=== PATIENT | male | born 1995 | race Caucasian/White ===

== ENCOUNTER 2022-09-26 16:32 | Emergency (ER) | payer OTHER, SELFPAY ==
[2022-09-26 17:41] VITALS: BP 151/86; PULSE 81; RESP 14; TEMP 36.6; O2SAT 151; BMI 42.9
[2022-09-26 19:22] VITALS: BP 146/77; PULSE 66; RESP 16; O2SAT 98
--- NOTE | 2022-09-26 19:40 | CRLHL7_ITS ---
For Patients: As a result of the Century Cures Act, medical imaging exams and procedure reports are released immediately into your electronic medical record. You may view this report before your referring provider. If you have questions, please contact your health care provider. CLINICAL HISTORY: Right upper quadrant pain FINDINGS: Pancreas poorly seen. Proximal abdominal aorta non aneurysmal. Gallbladder without stones wall thickening. Gallbladder wall measures 2 millimeters. Common bile duct measures 3 millimeters. Liver mildly enlarged measuring 17.2 cm. Right kidney measures 11.9 cm suboptimally seen but unremarkable. IMPRESSION: 1. Mildly enlarged liver. Study is otherwise unremarkable. Dictated by Tania Stern MD @ 09/26/2022 9:50:59 PM (Electronically Signed)
[2022-09-26] MEDS: ONDANSETRON 2 MG/ML inj 4 MG IVP (20:15)
[2022-09-26] MEDS: 0.9 % SODIUM CHLORIDE 1000 ml 1,000 ML 500 ML IV (20:15)
[2022-09-26] MEDS: OMEPRAZOLE 20 MG CAPSULE DR PO (20:15)
--- NOTE | 2022-09-26 20:20 | ED.ABDPAIN ---
HPI - Abdominal Pain General Chief Complaint: Abdominal Pain Stated Complaint: Sharp Abdominal Pain under RibCage Time Seen by Provider: 09/26/22 19:30 Source: patient Mode of arrival: ambulatory Limitations: no limitations History of Present Illness HPI narrative: 27-year-old obese male presents the emergency department with a 2 and half week history of abdominal pain. Initially started as a pressure, uncomfortable feeling and was intermittent. Has been increasing in frequency lately. For the last 1 week it has been more constant and is mainly a right epigastric and upper abdominal feeling of dullness and achiness. It worsened significantly this morning after he tried to eat a half omelet with his family out to breakfast after hindu. He admits that he drinks too much alcohol. 3-4 days per week he drinks about half of a case of beer. He denies a prior history of pancreatitis. He does report frequent gastric reflux but has never had an endoscopy. He has tried sporadic reflux meds in the past but nothing in the last few weeks. He does not endorse any blood in his stools, black tarry stools or over use of NSAIDs. Denies a prior history of pancreatitis. He is worried this could be related to alcohol due to the fact that he knows it is too much alcohol. He has not tried any home medications to help with his symptoms. Past medical history notable for obesity and prior depression though he is not currently on medications. As for his allergies he is allergic to minocycline which was treated with for acne as a teen. Surgically he has had 2 knee arthroscopies. Family history is negative for stomach ulcers, pancreatitis or GI cancers and is also negative for gallbladder disease. He has never had a workup from a similar disease. Socially, he is a nonsmoker but does binge drink frequently. ROS is notable for the GI symptoms as above, otherwise denies times 12 systems. Related Data Previous Rx's Medication Instructions Recorded omeprazole 20 mg capsule,delayed 20 mg PO DAILY #30 caps 09/26/22 release Allergies Allergy/AdvReac Type Severity Reaction Status Date / Time minocycline Allergy Hives Verified 09/26/22 17:40 [facility] Social History Smoking Status: Never smoker Do you use any of these nicotine containing products: None Second hand tobacco smoke exposure: No How often do you have a drink containing alcohol: 2-3 times a week How often do you have six or more drinks on one occasion: Weekly AUDIT-C Alcohol total score: 6 Non-prescribed substance use: denies use service: No Exam Const: Vital Signs, click to edit/add: Vital Signs - 24 hr 09/26/22 17:41 09/26/22 19:22 Temperature 97.9 F Pulse Rate [Right Pulse Oximeter] 81 66 Respiratory Rate 14 16 Blood Pressure [Ri ght Upper Arm] 151/86 H 146/77 H Pulse Oximetry 151 H 98 Oxygen Delivery Me thod Room Air Room Air Documenting provider has reviewed patient's vital signs: yes Common normals: no apparent distress General appearance: cooperative, comfortable and well kempt HENMT: Common normals: normocephalic Head and scalp: normocephalic Mouth: oral and palatal mucosa normal Throat: posterior oropharynx normal Eye: Common normals: conjunctivae normal and no scleral icterus Conjunctiva: conjunctiva(e) normal Neck & C-Spine: Common normals: full ROM and no lymphadenopathy Chest: Common normals: inspection of chest normal Resp: Common normals: normal respiratory effort, no use of accessory muscles and clear to auscultation bilaterally Auscultation: clear to auscultation bilaterally Cardio: Common normals: regular rate, regular rhythm, S1 normal heart sound, S2 normal heart sound, no murmurs and peripheral pulses 2+ throughout Rate: regular rate Rhythm: regular rhythm Heart sounds: S1 normal and S2 normal Peripheral pulses: pulses 2+ throughout GI: Other: Abdomen obese but soft. Bowel sounds are normoactive. He is tender to the right upper quadrant more so than the epigastric region but have some mild epigastric tenderness also. The liver does not seem enlarged. There are no obvious masses or hernias. : Common normals: no CVA tenderness Bladder/kidney exam: no CVA tenderness Back & Pelvis: Common normals: no CVA tenderness Extremity: Common normals: normal to inspection, normal capillary refill and no pedal edema Neuro: Speech: speech normal Gait (neuro): normal gait Motor exam: no tremor noted and no movement abnormalities noted Psych: Common normals: thought process normal, cooperative and affect normal Appearance: well kempt Thought process: normal thought process Skin: Common normals: no rashes or lesions noted General skin exam: no rashes or lesions noted Course Vital Signs Vital signs: Initial Vital Signs Temperature 97.9 F 09/26/22 17:41 Temperature Source Temporal Artery Scan 09/26/22 17:41 Pulse Rate 81 09/26/22 17:41 Respiratory Rate 14 09/26/22 17:41 Blood Pressure 151/86 H 09/26/22 17:41 Blood Pressure Mean 107 09/26/22 17:41 Blood Pressure Position Sitting 09/26/22 17:41 Pulse Oximetry 151 H 09/26/22 17:41 Oxygen Delivery Method 09/26/22 17:41 Vital Signs Temperature 97.9 F 09/26/22 17:41 Pulse Rate 81 09/26/22 17:41 Respiratory Rate 14 09/26/22 17:41 Blood Pressure 151/86 H 09/26/22 17:41 Pulse Oximetry 151 H 09/26/22 17:41 Oxygen Delivery Method 09/26/22 17:41 Temperature 97.9 F 09/26/22 17:41 Pulse Rate 66 09/26/22 19:22 Respiratory Rate 16 09/26/22 19:22 Blood Pressure 146/77 H 09/26/22 19:22 Pulse Oximetry 98 09/26/22 19:22 Oxygen Delivery Method 09/26/22 19:22 MDM - Abdominal Pain MDM Narrative Medical decision making narrative: Differential diagnosis including cirrhosis, alcoholic gastritis, stomach ulcer, pancreatitis, gallbladder disease, cholecystitis verses gallstones. Colitis and other intra-abdominal issues on the differential diagnosis as well as is cardiac disease. Recommended a trial of omeprazole and Zofran, lab workup and abdominal ultrasound. Declines pain medicine for now and I agree. Await lab results. Ultrasound report showing mild liver enlargement, otherwise normal, confirmed with formal report. Gallbladder wall specifically not thickened, ducts not thickened. No signs of sludge or stones. Labs reviewed, appropriate context. Patient continuing to have some mild pain not relieved by the omeprazole. No nausea, no vomiting. Is tolerating the fluids well. We discussed all the findings and reviewed the plan of care. He will abstain from alcohol, start omeprazole and follow up with primary care in 2 weeks to rest depression, anxiety and GI symptoms. Recommend HIDA scan and endoscopy if not improving on omeprazole as expected. Lab Data Attestation: I reviewed the patient's lab results. Lab results narrative: Mild elevation of transaminases consistent with known heavy alcohol use but bilirubin reassuring. Normal CRP, no leukocytosis is reassuring as well Labs: Lab Results 09/26/22 09/26/22 Range/Units 20:00 20:00 WBC 7.93 (4.50-11.00) K/uL RBC 4.83 (4.30-5.90) m/uL Hgb 15.7 (13.5-17.5) gm/dL Hct 46.1 (37.0-53.0) % MCV 95 (80-100) fL MCH 33 (26-34) pg MCHC 34 (32-36) gm/dL RDW Coeff of Kaylen 12.4 (11.5-15.5) % Plt Count 212 (140-440) K/uL Neut % (Auto) 54.1 (42.0-72.0) % Lymph % (Auto) 34.3 (20-44) % [place] % (Auto) 7.6 (0.0-11.0) % Eos % (Auto) 3.3 (0.0-7.0) % Baso % (Auto) 0.4 (0.0-3.0) % Neut # (Auto) 4.30 (1.7-7.0) K/uL Lymph # (Auto) 2.72 (0.90-2.90) K/uL [place] # (Auto) 0.60 (0.00-0.90) K/UL Eos # (Auto) 0.26 (0.00-0.50) K/uL Baso # (Auto) 0.03 (0.00-0.30) K/uL Abs Immat Gran (auto) 0.02 (0.00-0.30) K/uL Imm/Tot Granulo (auto) 0.3 % Sodium 138 (135-149) mmol/L Potassium 4.1 (3.6-5.1) mmol/L Chloride 101 (96-114) mmol/L Carbon Dioxide 29 (20-32) mmol/L BUN 13 (5-24) mg/dL Creatinine 1.1 (0.5-1.5) mg/dL Estimated Creat Clear 118.32 Estimated GFR 95 ml/min Glucose 85 (60-115) mg/dL Calcium 9.7 (8.4-10.6) mg/dL Total Bilirubin 0.8 (0.1-1.5) mg/dL AST 45 H (12-35) U/L ALT 74 H (4-50) U/L Alkaline Phosphatase 120 (40-150) U/L C-Reactive Protein < 0.5 L (0.5-1.0) mg/dL Total Protein 8.0 (6.0-8.3) g/dL Albumin 5.1 H (3.3-5.0) g/dL Lipase 42 (23-300) U/L Discharge Plan Discharge Clinical Impression: Gastritis Patient Disposition: Home, Self-Care Condition: Stable Instructions: Gastritis (DC) Additional Instructions: Your stomach seems inflamed from a combination of acid reflux and drinking too much alcohol. You will need to start a stomach acid medicine called omeprazole once daily for the next couple of weeks and follow-up with a primary care doctor to recheck your symptoms. It is important that you stop drinking alcohol to allow your stomach to heal. I would recommend that you talk to a primary care doctor about your anxiety and depression as well as I suspect your self medicating with alcohol. Your symptoms should improve markedly within the next couple of weeks. If they do not, additional workup to look at the gallbladder more closely including a HIDA scan or a CT scan should be considered. Your liver does show some mild changes associated with heavy alcohol use but is still at a point where this can be corrected with better behavior. The primary care doctor will talk to about additional workup including possibly an endoscopy if the stomach acid medicine does not improve your symptoms. There were no signs of pancreatitis or other complication on labs today. Slowly advance her diet, initially avoiding carbonated beverages and all alcohol and very acidic foods for the next week or 2. Start was soft, bland foods and plenty of fluids. Add in a wider array of foods as her symptoms improve but as stated, avoiding alcohol and carbonated beverages for a few weeks. Activity Level: Activity as Tolerated Discharge Diet: Regular Prescriptions: New omeprazole 20 mg capsule,delayed release(DR/EC) 20 mg PO DAILY Qty: 30 2RF Follow Up/Referrals: Provider,Not a Local [Primary Care Provider] - Stand Alone Forms: [email or web address] Info Instructions
[2022-09-26 20:22] LABS: Basophils Absolute Auto 0.03 K/uL (0.00-0.30); Basophils Percent Auto 0.4 % (0.0-3.0); Eosinophils Absolute Auto 0.26 K/uL (0.00-0.50); Eosinophils Percent Auto 3.3 % (0.0-7.0); Hematocrit 46.1 % (37.0-53.0); Hemoglobin* 15.7 gm/dL (13.5-17.5); Immature Granulocytes Abs Auto 0.02 K/uL (0.00-0.30); Immature Granulocytes Pct Auto 0.3 %; Lymphocytes Absolute Auto 2.72 K/uL (0.90-2.90); Lymphocytes Percent Auto 34.3 % (20-44); Mean Corpuscular HGB Conc 34 gm/dL (32-36); Mean Corpuscular Hemoglobin 33 pg (26-34); Mean Corpuscular Volume 95 fL (80-100); Monocytes Percent Auto 7.6 % (0.0-11.0); Neutrophils Percent Auto 54.1 % (42.0-72.0); Platelet Count* 212 K/uL (140-440); RDW Coefficient of Variation % 12.4 % (11.5-15.5); Red Blood Count 4.83 m/uL (4.30-5.90); White Blood Count* 7.93 K/uL (4.50-11.00)
--- OUTSIDE RECORDS SUMMARY | 2022-09-26 20:22 | XMS_ITS | Clinical Summary ---
:1995 Author Organization [place] Address [address] [place] [address] Care Team Providers Name Role Phone Annalisa Silva NP Primary Care Provider [phone] Annalisa Silva BIOMETRICIAN Unavailable Allergies Active Allergy Reactions Severity Noted Date Comments Minocycline Itching, Rash Medium 07/06/2012 Medications Medication Sig Dispensed Refills Start Date End Date Status Multiple Take 1 tablet by 0 Act jorge Vitamins-Minerals (RALF mouth daily MULTI MEN PO) [place]-3 Fatty Acids Take 1 capsule by 0 Active (FISH OIL OMEGA-3 PO) mouth daily hydrOXYzine (ATARAX) 25 Take 1-2 tablets 60 tablet 1 9 Active MG tabletIndications: (25-50 mg) by Generalized anxiety mouth every 4 disorder hours as needed for anxiety traZODone (DESYREL) 50 One or two at 60 tablet 1 04/15/2019 Active MG tabletIndications: night as needed Generalized anxiety disorder busPIRone (BUSPAR) 10 Take 1 tablet (10 60 tablet 1 05/28/2021 Active MG tabletIndications: mg) by mouth 2 Generalized anxiety times daily disorder vortioxetine Take 1 tablet (10 30 tablet 1 05/28/2021 Active (TRINTELLIX) 10 MG mg) by mouth tabletIndications: daily Generalized anxiety disorder azithromycin Two tablets first 6 tablet 0 02/11/2022 Active (ZITHROMAX) 250 MG day, then one tabletIndications: tablet daily for Sinusitis, unspecified four days. chronicity, unspecified location Active Problems Problem Noted Date Palpitations 12/25/2020 Overview: Added automatically from request for ilan singery [id number] Morbid obesity 12/25/2020 SVT (supraventricular tachycardia) 12/25/2020 Overview: Added automatically from request for ilan arciniega [id number] Suicidal ideations 04/11/2019 Nausea & vomiting 03/23/2018 Obesity 05/30/2013 Anxiety disorder Resolved Problems Problem Noted Date Resolved Date Pneumonia 04/11/2016 11/14/2017 Postconcussion syndrome 01/31/2008 08/26/2015 Influenza with respiratory manifestation other than 12/26/19 07 01/31/2008 pneumonia Overview: Problem list name updated by automated p rocess. Provider to review Pneumonia, organism unspecified(486) 12/26/200612/2007 Immunizations Name Administration Dates Next Due DTAP (<7y) 05/15/2001, 05/25/1997, 1996, 1996, 1996 DTP-Hib 1996, 1996, 1996 HEPA 05/02/2013 Hep B, Peds or Adolescent 1996, 1996, 1996 HepA-ped 2 Dose 05/02/2013 HepB 1996, 1996, 1996 Hib (PRP-T) 05/25/1997, 1996, 1996, 1996 Influenza (IIV3) PF 09/05/2007 Influenza Vaccine 50-64 or 18-64 w/egg 11/15/2018 allergy (Flublok) MMR 05/15/2001, 05/25/1997 Meningococcal (Menactra??) 06/06/2013, 06/12/2007 Meningococcal (Menveo??) 06/06/2013 OPV, trivalent, live 1996, 1996, 1996 Poliovirus, inactivated (IPV) 05/15/2001, 1996, 1995, 1996 TD (ADULT, 7+) 05/01/2018 TDAP Vaccine (Boostrix) 06/12/2007 TRIHIBIT (DTAP/HIB, <7y) 05/25/1997 Varicella Pt Report Hx of 08/14/1998 Varicella/Chicken Pox Family History Medical History Relation Comments Family History Negative Father Diabetes Maternal Grandmother Family History Negative Mother Diabetes Other Other Cancer Paternal Grandmother Relation Status Comments Brother Alive Father Alive Maternal Grandmother Mother Alive Other Paternal Grandmother Social History Tobacco Use Types Packs/Day Years Used Date Smoking Tobacco: Never Smokeless Tobacco: Former Chew Qu it: 07/31/2020 Tobacco Cessation: Counseling Given: No Alcohol Use Standard Drinks/Week Comments Yes 0 (1 standard drink = 0.6 oz pure alcoho l) occasional Alcohol Habits Answer Date Recorded How often do you have a drink containing alcohol? Not asked How many drinks containing alcohol do you have on a typical 3 or 4 11/15/2018 day when you are drinking? How often do you have six or more drinks on one occasion? We ekly 11/15/2018 Sex Assigned at Date Recorded Male 07/12/2020 3:49 AM CDT Last Filed Vital Signs Vital Sign Reading Time Taken Comments Blood Pressure 152/96 06/18/2022 12:05 PM CDT Pulse 76 06/18/2022 12:05 PM CDT Temperature 36.7 ??C (98 ??F) 06/18/2022 12:05 PM CDT Respiratory Rate 18 06/18/2022 12:05 PM CDT Oxygen Saturation 98% 06/18/2022 12:05 PM CDT Inhaled Oxygen Concentration - - Weight 146.4 kg (322 lb 11.2 oz) 05/28/2021 5:46 PM CDT Height 188 cm (6' 2) 05/28/2021 5:46 PM CDT Body Mass Index 41.43 05/28/2021 5:46 PM CDT Plan of Treatment Upcoming Encounters Date Type Specialty Care Team Description 11/04/2022 Office Visit Internal Medicine Marcy Ricketts APRN COMPOUND SPECIALIST [address] [place], [place] [address] (Wo rk) Health Maintenance Due Date Last Done Comments ANNUAL REVIEW OF HM ORDERS 1996 HPV IMMUNIZATION (1 - Male 01/10/2007 2-dose series) HEPATITIS C SCREENING 01/10/2014 COVID-19 Vaccine (3 - 08/21/2021 06/26/2021, 05/29/2021 Booster for Moderna series) PHQ-2 (once per calendar 10/31/2021 05/28/2021, 05/28/2021, year) 12/29/2020, Additional history exists YEARLY PREVENTIVE VISIT 05/28/2022 05/28/2021, 11/15/2018, 11/14/2017, Additional history exists INFLUENZA VACCINE (#1) 2022 07/30/2020, 07/25/2019, 11/15/2018, Additional history exists ADVANCE CARE PLANNING 05/28/2026 05/28/2021 DTAP/TDAP/TD IMMUNIZATION 05/01/2028 05/01/2018, 06/12/2007 , (5 - Td or Tdap) 05/15/2001, Additional history exists HEPATITIS B IMMUNIZATION Completed 1996, 1996, 1996, Additional history exists IPV IMMUNIZATION Completed 05/15/2001, 1996, 1996, Additional history exists MENINGITIS IMMUNIZATION Completed 06/06/2013, 06/06/2013, 06/12/2007 HIV SCREENING Completed 05/01/2018, 04/12/2016, 04/12/2016 Pneumococcal Vaccine: Aged Out No longer eligible Pediatrics (0 to 5 Years) based on patient's age and At-Risk Patients (6 to to co mplete this topic 64 Years) Advance Directives For more information, please contact: [phone] Latest Code Status on File Code Status Date Activated Date Inactivated Comments Full Code 04/11/2019 5:26 AM 04/15/2019 1:08 PM Question Answer Comments Code status determined by: Discussion with patient/legal dec ision maker Code Status History Code Status Date Activated Date Inactivated Comments Full Code 03/24/2018 10:04 AM 03/29/2019 10:47 PM Full Code 03/23/2018 12:13 PM 03/24/2018 10:04 AM Full Code 04/11/2016 10:58 PM 04/14/2016 2:21 PM Care Teams Supervisor Braiding Relationship Specialty Start Date End Date Annalisa Silva NP PCP - General Nurse Practitioner - Adult 04/11/[address] [place] [address] Annalisa Silva, BETTY Assigned PCP 01/04/[address] [place], [place] [address]
--- OUTSIDE RECORDS SUMMARY | 2022-09-26 20:22 | XMS_ITS | Encounter Summary ---
:1995 Author Organization [place] Address [facility] [facility] [place] [address] Care Team Providers Name Role Phone Annalisa Silva ACTIVITIES DIRECTOR SCOUTING Primary Care Provider [phone] Annalisa Silva ACTIVITIES DIRECTOR SCOUTING Unavailable Tanya Lentz APRN PRODUCT MANAGER MEDICAL DEVICE Unavailable + Encounter Details Date Type Department Care Team Description 06/18/2022 Travel Social History Tobacco Use Types Packs/Day Years Used Date Smoking Tobacco: Never Smokeless Tobacco: Former Chew Qu it: 07/31/2020 Alcohol Use Standard Drinks/Week Comments Yes 0 [...] Date Recorded Male 07/12/2020 3:49 AM CDT COVID-19 Exposure Response Date Recorded In the last 10 days, have you been in contact with No / Unsu re 06/18/2022 11:58 AM CDT someone who was confirmed or suspected to have Coronavirus/COVID-19? documented as of this encounter Plan of Treatment Upcoming Encounters Date Type Specialty Care Team Description 11/04/2022 Office Visit Internal Medicine Marcy Ricketts APRN PRODUCT MANAGER MEDICAL DEVICE [address] [place], [place] [address] (Wo rk) documented as of this encounter Visit Diagnoses Not on filedocumented in this encounter Additional Health Concerns Assessment Noted Time PHQ-9 Depression Total Score: 7 05/28/2021 6:06 PM CDT documented as of this encounter Care Teams Repacker Relationship Specialty Start Date End Date Annalisa Silva, PCP - General Nurse Practitioner - 04/11/19 ACTIVITIES DIRECTOR SCOUTING [facility] [address] [place], [place] [address] Annalisa Silva, Assigned PCP 01/04/21 ACTIVITIES DIRECTOR SCOUTING [address] [place], [place] [address] Tanya Lentz Assigned Heart and 04/12/21 CLAUDIO Mclain PRODUCT MANAGER MEDICAL DEVICE Vascular Provider [address] [place] [address] documented as of this encounter
--- OUTSIDE RECORDS SUMMARY | 2022-09-26 20:22 | XMS_ITS | Encounter Summary ---
:1995 Author Organization [place] Address [address] [address] Care Team Providers Name Role Phone Annalisa Silva GROUND SERVICE EQUIPMENT MECHANIC Primary Care Provider [phone] Marcy Ricketts APRN GRADER OPERATOR Unavailable [phone] Annalisa Silva GROUND SERVICE EQUIPMENT MECHANIC Unavailable Vivian Darby MD Unavailable Reason for Visit Reason Onset Date Comments Leave paperwork 01/01/2021 Encounter Details Date Type Department Care Team Description 01/01/2021 Telephone [facility] Natalie Brewster, NICOLA Leave paperwork [address] [place] [address] Social History Tobacco Use Types Packs/Day Years [...] six or more drinks on one occasion? Erik del rio 11/15/2018 Sex Assigned at Date Recorded Male 07/12/2020 3:49 AM CDT COVID-19 Exposure Response Date Recorded In the last month, have you been in contact with No / Unsure 01/02/2021 10:52 AM PIPELINE SYSTEMS OPERATOR someone who was confirmed or suspected to have Coronavirus / COVID-19? documented as of this encounter Miscellaneous Notes Telephone Encounter - Stacia Brewster RN - 01/05/2021 1:38 PM CST 01/05/21 Spoke with pt who stated he discussed his return to work w Dr Darby after procedure on 01/02. Ronny stated pt can return to work today without restrictions. Pt stated he will contact [facility] and cancel leave. Therefore, no paperwork will need to be faxed. KHerroRN 140 pm LINE SYSTEMS OPERATOR Telephone Encounter - Stacia Brewster RN - 01/01/2021 12:25 PM CST 01/01/21 Pt called asking for fax # as he will be submitting leave paperwork to his employer post SVT Ablation. 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 Explained to pt that it is recommended he refrain from any heavy lifting for at least 1 week post SVT ablation. Given Afib RN fax # . Pt stated he will let employer know so paperwork can be faxed. KHerroRN 1226 pm LINE SYSTEMS OPERATOR documented in this encounter Plan of Treatment Upcoming Encounters Date Type Specialty Care Team Description 11/04/2022 Office Visit Internal Medicine Marcy Ricketts APRN GRADER OPERATOR [address] [place], [place] [address] (Wo rk) documented as of this encounter Visit Diagnoses Not on filedocumented in this encounter Additional Health Concerns Assessment Noted Time PHQ-9 Depression Total Score: 16 04/18/2019 11:20 AM C DT documented as of this encounter Care Teams Finishing And Shipping Supervisor Relationship Specialty Start Date End Date Annalisa Silva PCP - General Nurse Practitioner - 04/11/19 BETTY [facility] [address] [place] [address] Marcy Ricketts Assigned PCP 10/05/20 01/03/21 CLAUDIO Griffin GRADER OPERATOR [address] [place] [address] Annalisa Silva Assigned PCP 01/04/21 BETTY Yousif [address] [place], [place] [address] Vivian Darby MD Assigned Heart and 01/04/21 04/11/21 [address] Vascular Provider [address] [place] [id number] documented as of this encounter
--- OUTSIDE RECORDS SUMMARY | 2022-09-26 20:22 | XMS_ITS | Encounter Summary ---
:1995 Author Organization [place] Address [facility] [facility] [place] [address] Care Team Providers Name Role Phone Annalisa Silva CORPORATE AIRCRAFT MECHANIC Primary Care Provider [phone] Annalisa Silva CORPORATE AIRCRAFT MECHANIC Unavailable Tanya Lentz APRN AUTO BODY REPAIRMAN Unavailable + Encounter Details Date Type Department Care Team Description 03/06/2022 Travel Social History Tobacco Use Types Packs/Day [...] in contact with No / Unsu re 03/06/2022 1:56 PM CDT someone who was confirmed or suspected to have Coronavirus/COVID-19? documented as of this encounter Plan of Treatment Upcoming Encounters Date Type Specialty Care Team Description 11/04/2022 Office Visit Internal Medicine Marcy Ricketts APRN AUTO BODY REPAIRMAN [address] [place], [place] [address] (Wo rk) documented as of this encounter Visit Diagnoses Not on filedocumented in this encounter Additional Health Concerns Assessment Noted Time PHQ-9 Depression Total Score: 7 05/28/2021 6:06 PM CDT documented as of this encounter Care Teams Incident Engineer Relationship Specialty Start Date End Date Annalisa Silva, PCP - General Nurse Practitioner - 04/11/19 CORPORATE AIRCRAFT MECHANIC [facility] [address] [place], [place] [address] Annalisa Silva, Assigned PCP 01/04/21 CORPORATE AIRCRAFT MECHANIC [address] [place], [place] [address] Tanya Lentz Assigned Heart and 04/12/21 CLAUDIO Mclain AUTO BODY REPAIRMAN Vascular Provider [address] [place] [address] documented as of this encounter
--- OUTSIDE RECORDS SUMMARY | 2022-09-26 20:22 | XMS_ITS | Encounter Summary ---
:1995 Author Organization [place] Address [facility] [place] [address] Care Team Providers Name Role Phone Annalisa Silva DIRECTOR OF PATIENT FINANCIAL SERVICES Primary Care Provider [phone] Annalisa Silva DIRECTOR OF PATIENT FINANCIAL SERVICES Unavailable Tanya Lentz APRN PRODUCTION TOOL ENGINEER Unavailable + Reason for Referral Consultation (Routine) - Closed Specialty Diagnoses / Procedures Referred By Contact Refer red To Contact Gastroenterology Diagnoses Gastroesophageal reflux disease with esophagitis without hemorrhage Annalisa Silva [facility] DIRECTOR OF PATIENT FINANCIAL SERVICES SERVICES [address] [address] [place] [address] Phone: Referral ID Status Reason Start Date Expiration Date Visits Requ ested Visits Authorized [id number] Closed 05/28/2021 05/28/2022 1 1 Scheduling Instructions If EUS or ERCP is selected, it requires clinical review prior to scheduling. Reason for Visit Reason Comments Physical Encounter Details Date Type Department Care Team Description 05/28/2021 Office Visit [facility] Annalisa Rodriguez re maintenance (Primary Dx); Clinic Meghan Yousif NP Generalized anxiety disorder; [address] Gastroesophag eal reflux disease with esophagitis [place] [address] [phone] Social History Tobacco Use Types Packs/Day Years [...] been in contact with No / Unsure 05/28/2021 5:38 PM CDT someone who was confirmed or suspected to have Coronavirus / COVID-19? documented as of this encounter Last Filed Vital Signs Vital Sign Reading Time Taken Comments Blood Pressure 124/70 05/28/2021 5:46 PM CDT Pulse 73 05/28/2021 5:46 PM CDT Temperature 37 ??C (98.6 ??F) 05/28/2021 5:46 PM CDT Respiratory Rate 16 05/28/2021 5:46 PM CDT Oxygen Saturation 97% 05/28/2021 5:46 PM CDT Inhaled Oxygen Concentration - - Weight 146.4 kg (322 lb 11.2 oz) 05/28/2021 5:46 PM CDT Height 188 cm (6' 2) 05/28/2021 5:46 PM CDT Body Mass Index 41.43 05/28/2021 5:46 PM CDT documented in this encounter Progress Notes Annalisa Silva, BETTY - 05/28/2021 5:40 PM CDT SUBJECTIVE: CC: Seamus Barnes is an 26 year old male who presents for preventative health visit. Patient has been advised of split billing requirements and indicates understanding: Yes Healthy Habits: Getting at least 3 servings of Calcium per day: Yes Bi-annual eye exam: NO Dental care twice a year: Yes Sleep apnea or symptoms of sleep apnea: None Diet: Regular (no restrictions) Frequency of exercise: 4-5 days/week Duration of exercise: 45-60 minutes Taking medications regularly: Yes Medication side effects: None PHQ-2 Total Score: 2 Additional concerns today: No GERD/Heartburn ?? Duration: months ?? Description (location/character/radiation): regurgitation of food ?? Intensity: moderate ?? Accompanying signs and symptoms: food getting stuck: no nausea/vomiting/blood: no abdominal pain: no black/tarry or bloody stools: no : ?? History (similar episodes/previous evaluation): h/o eating disorder, binge/purging ?? Precipitating or alleviating factors: worse with no particular food or drink. current NSAID/Aspirin use: no ?? Therapies tried and outcome: none Anxiety Follow-Up ?? How are you doing with your anxiety since your last visit? No change ?? Are you having other symptoms that might be associated with anxiety? No ?? Have you had a significant life event? No ?? Are you feeling depressed? No ?? Do you have any concerns with your use of alcohol or other drugs? No Social History Tobacco Use ??? Smoking status: Never Smoker ??? Smokeless tobacco: Former User Types: Chew Vaping Use ??? Vaping Use: Never used Substance Use Topics ??? Alcohol use: Yes Comment: occasional ??? Drug use: No JACKIE-7 SCORE 09/07/2016 04/03/2019 04/18/2019 Total Score 10 6 15 PHQ 09/07/2016 04/03/2019 04/18/2019 PHQ-9 Total Score 5 17 16 Q9: Thoughts of better off /self-harm past 2 weeks Not at all Several days More than half the days Today's PHQ-2 Score: PHQ-2 (??1998 Pfizer) 05/28/2021 Q1: Little interest or pleasure in doing things 1 Q2: Feeling down, depressed or hopeless 1 PHQ-2 Score 2 Q1: Little interest or pleasure in doing things Several days Q2: Feeling down, depressed or hopeless Several days PHQ-2 Score 2 Abuse: Current or Past(Physical, Sexual or Emotional)- No Do you feel safe in your environment? Yes Have you ever done Advance Care Planning? (For example, a Health Directive, POLST, or a discussion with a medical provider or your loved ones about your wishes): No, advance care planning information given to patient to review. Patient declined advance care planning discussion at this time. Social History Tobacco Use ??? Smoking status: Never Smoker ??? Smokeless tobacco: Former User Types: Chew Substance Use Topics ??? Alcohol use: Yes Comment: occasional If you drink alcohol do you typically have >3 drinks per day or >7 drinks per week? No Alcohol Use 05/28/2021 Prescreen: >3 drinks/day or >7 drinks/week? Yes Prescreen: >3 drinks/day or >7 drinks/week? - AUDIT SCORE 5 Last PSA: No results found for: PSA Reviewed orders with patient. Reviewed health maintenance and updated orders accordingly - Yes BP Readings from Last 3 Encounters: 05/28/21 124/70 02/25/21 118/66 01/02/21 118/63 Wt Readings from Last 3 Encounters: 05/28/21 146.4 kg (322 lb 11.2 oz) 02/25/21 149.1 kg (328 lb 12.8 oz) 01/02/21 144.6 kg (318 lb 12.8 oz) Patient Active Problem List Diagnosis ??? Obesity ??? Anxiety disorder ? ? Nausea & vomiting ??? Suicidal ideations ??? Palpitations ??? Morbid obesity (H) ??? SVT (supraventricular tachycardia) (H) Past Surgical History: Procedure Laterality Date ??? EP ABLATION SVT N/A 01/02/2021 Procedure: EP Ablation SVT; Surgeon: Vivian Darby MD; Location: [facility] ??? NOSE SURGERY 03/23/2019 ??? ORTHOPEDIC SURGERY 07/29/16 rt knee Social History Tobacco Use ??? Smoking status: Never Smoker ??? Smokeless tobacco: Former User Types: Chew Substance Use Topics ??? Alcohol use: Yes Comment: occasional Family History Problem Relation Age of Onset ??? Family History Negative Mother ??? Family History Negative Father ??? Other Cancer Paternal Grandmother ??? Diabetes Maternal Grandmother ??? Diabetes Other Current Outpatient Medications Medication Sig Dispense Refill ??? busPIRone (BUSPAR) 10 MG tablet Take 1 tablet (10 mg) by mouth 2 times daily 60 tablet 1 ??? hydrOXYzine (ATARAX) 25 MG tablet Take 1-2 tablets (25-50 mg) by mouth every 4 hours as needed for anxiety 60 tablet 1 ??? Multiple Vitamins-Minerals (RALF MULTI MEN PO) Take 1 tablet by mouth daily ??? [place]-3 Fatty Acids (FISH OIL OMEGA-3 PO) Take 1 capsule by mouth daily ??? traZODone (DESYREL) 50 MG tablet One or two at night as needed 60 tablet 1 ??? vortioxetine (TRINTELLIX) 10 MG tablet Take 1 tablet (10 mg) by mouth daily 30 tablet 1 Reviewed and updated as needed this visit by clinical staff Tobacco Allergies Meds Med Hx Surg Hx Fam Hx Soc Hx Reviewed and updated as needed this visit by Provider Review of Systems Constitutional: Negative for chills and fever. HENT: Negative for congestion, ear pain, hearing loss and sore throat. Eyes: Negative for pain and visual disturbance. Respiratory: Negative for cough and shortness of breath. Cardiovascular: Negative for chest pain, palpitations and peripheral edema. Gastrointestinal: Negative for abdominal pain, constipation, diarrhea, heartburn, hematochezia and nausea. Genitourinary: Negative for discharge, dysuria, frequency, genital sores, hematuria, impotence and urgency. Musculoskeletal: Negative for arthralgias, joint swelling and myalgias. Skin: Negative for rash. Neurological: Positive for dizziness. Negative for weakness, headaches and paresthesias. Psychiatric/Behavioral: Negative for mood changes. The patient is nervous/anxious. OBJECTIVE: BP 124/70 Pulse 73 Temp 98.6 ??F (37 ??C) (Oral) Resp 16 Ht 1.88 m (6' 2) Wt 146.4 kg (322 lb 11.2 oz) SpO2 97% BMI 41.43 kg/m?? Physical Exam GENERAL: alert, no distress and obese NECK: no adenopathy, no asymmetry, masses, or scars and thyroid normal to palpation RESP: lungs clear to auscultation - no rales, rhonchi or wheezes CV: regular rate and rhythm, normal S1 S2, no S3 or S4, no murmur, click or rub, no peripheral edemaand peripheral pulses strong ABDOMEN: soft, nontender, no hepatosplenomegaly, no masses and bowel sounds normal PSYCH: mentation appears normal, affect normal/bright ASSESSMENT/PLAN: ICD-10-CM 1. Healthcare maintenance Z00.00 CBC with platelets Basic metabolic panel (Ca, Cl, CO2, Creat, Gluc, K, Na, BUN) Lipid panel reflex to direct LDL Non-fasting TSH CBC with platelets Basic metabolic panel (Ca, Cl, CO2, Creat, Gluc, K, Na, BUN) Lipid panel reflex to direct LDL Non-fasting TSH 2. Generalized anxiety disorder F41.1 busPIRone (BUSPAR) 10 MG tablet vortioxetine (TRINTELLIX) 10 MG tablet 3. Gastroesophageal reflux disease with esophagitis without hemorrhage K21.00 Adult Gastro Ref - Procedure Only Patient has been advised of split billing requirements and indicates understanding: Yes COUNSELING: Reviewed preventive health counseling, as reflected in patient instructions Estimated body mass index is 41.43 kg/m?? as calculated from the following: Height as of this encounter: 1.88 m (6' 2). Weight as of this encounter: 146.4 kg (322 lb 11.2 oz). He reports that he has never smoked. He quit smokeless tobacco use about 9 months ago. His smokelesstobacco use included chew. Counseling Resources: ATP IV Guidelines Pooled Cohorts Equation Calculator FRAX Risk Assessment ICSI Preventive Guidelines Dietary Guidelines for Americans, 2009 [employer]'s MyPlate ASA Prophylaxis Lung CA Screening Annalisa Silva NP [facility] documented in this encounter Nursing Notes Lexy Henry MA - 05/28/2021 5:40 PM CDT Physical Vital signs: Temp: 98.6 ??F (37 ??C) Temp src: Oral BP: 124/70 Pulse: 73 Resp: 16 SpO2: 97 % Height: 188 cm (6' 2) Weight: 146.4 kg (322 lb 11.2 oz) Estimated body mass index is 41.43 kg/m?? as calculated from the following: Height as of this encounter: 1.88 m (6' 2). Weight as of this encounter: 146.4 kg (322 lb 11.2 oz). documented in this encounter Plan of Treatment Upcoming Encounters Date Type Specialty Care Team Description 11/04/2022 Office Visit Internal Medicine Liliam Marcynan Griffin, TOPSTITCHER ZIGZAG PRODUCTION TOOL ENGINEER [address] [place], [place] [address] (Wo rk) Scheduled Referrals Name Type Priority Associated Diagnoses Order S chedule Adult Gastro Ref - Referral Routine Gastroesophageal reflu x Expected: Procedure Only disease with esophagitis 0 05/28/2021 without hemorrhage (Approxim ate), Expires: 2021 documented as of this encounter Procedures Procedure Name Priority Date/Time Associated Diagnosis Comme nts TSH Routine 05/28/2021 6:11 PM Healthcare Results f or this CDT maintenance procedure are i n the results section. LIPID REFLEX TO Routine 05/28/2021 6:11 PM Healthcare Result s for this DIRECT LDL PANEL CDT maintenance procedure a re in the results section. BASIC METABOLIC Routine 05/28/2021 6:11 PM Healthcare Result s for this PANEL CDT maintenance procedure are i n the results section. CBC WITH PLATELETS Routine 05/28/2021 6:11 PM Healthcare Res ults for this CDT maintenance procedure are i n the results section. documented in this encounter Results TSH (05/28/2021 6:11 PM CDT) P athologist Signature TSH 2.73 0.40 - 4.00 05/29/2021 [facility] mU/L 4:00 PM CDT Specimen Anatomical Collection Method / Collection Time Recei brianne Time (Source) Location / Volume Laterality Blood STRUCTURE OF LEFT Venipuncture / 05/28/2021 6:11 05/28 6:11 UPPER LIMB / Unknown PM CDT PM CDT Unknown Annalisa Silva NP LAB - BLOOD ORDERABLES Performing Organization Address City/State/ZIP Code Phon e Number [facility] [place], [place] [phone] [place] [facility] [address] [place] [address] Lab (no room number, 1st floor of clinic) OX [facility]ATORY [place], [place] [phone] [facility] [place] [address], [facility] [address] Lab (no room number, 1st floor of clinic) (ABNORMAL) Lipid panel reflex to direct LDL Non-fasting (05/28/2021 6:11 PM CDT) P athologist Signature Cholesterol 222 (H) <200 mg/dL 05/29/2021 [facility] 3:36 PM CDT Comment: Age 0-19 years Desirable: <170 mg/dL Borderline high: ??170-199 mg/dl High: ?>199 mg/dl Age 20 years and older Desirable: <200 mg/dL Triglycerides 112 <150 mg/dL 05/29/2021 3:36 PM CDT [facility] Comment: 0-9 years: Normal: ?Less than 75 mg/dL Borderline high: ??75-99 mg/dL High: ? Greater than or equal to 100 mg/dL 0-19 years: Normal: ?Less than 90 mg/dL Borderline high: ??90-129 mg/dL High: ? Greater than or equal to 130 mg/dL 20 years and older: Normal: ?Less than 150 mg/dL Borderline high: ??150-199 mg/dL High: ? 200-499 mg/dL Very high: ?? Greater than or equal to 5 00 mg/dL Direct Measure HDL 44 >=40 mg/dL 05/29/2021 3:36 PM C DT [facility] Comment: 0-19 years: ? Greater than or equal to 45 mg/dL Low: Less than 40 mg/dL Borderline low: 40-44 mg/dL 20 years and older: Female: Greater than or equal to 50 mg/d L Male: ?? Greater than or equal to 40 mg/ dL LDL Cholesterol 156 (H) <=100 mg/dL 05/29/2021 3:36 PM CDT [facility] Calculated Comment: Age 0-19 years: Desirable: 0-110 mg/dL Borderline high: 110-129 mg/dL High: >= 130 mg/dL Age 20 years and older: Desirable: <100mg/dL Above desirable: 100-129 mg/dL Borderline high: 130-159 mg/dL High: 160-189 mg/dL Very high: >= 190 mg/dL Non HDL Cholesterol 178 (H) <130 mg/dL 05/29/2021 3:36 PM CDT [facility] Comment: 0-19 years: Desirable: ? Less than 120 mg/ dL Borderline high: ?? 120-144 mg/dL High: ? Greater th an or equal to 145 mg/dL 20 years and older: Desirable: ? 130 mg/dL Above Desirable: 130-159 mg/dL Borderline high: ?? 160-189 mg/dL High: ? 190-219 mg/dL Very high: ?? Greater than or equal to 2 20 mg/dL Patient Fasting > 8hrs? No 05/29/2021 3:36 PM CDT [facility] Specimen Anatomical Collection Method / Collection Time Recei brianne Time (Source) Location / Volume Laterality Blood STRUCTURE OF LEFT Venipuncture / 05/28/2021 6:11 05/28 6:11 UPPER LIMB / Unknown PM CDT PM CDT Unknown Annalisa Silva NP LAB - BLOOD ORDERABLES Performing Organization Address [facility]/State/ZIP Code Phon e Number OX LABORATORY [place], [place] [phone] [place] [facility] [address] [place] [address] Lab (no room number, 1st floor of clinic) OX LABORATORY [place], [place] [phone] [facility] [address] Lab (no room number, 1st floor of clinic) (ABNORMAL) Basic metabolic panel (Ca, Cl, CO2, Creat, Gluc, K, Na, BUN) (05/28/2021 6:11 PM CDT) Analysis Performed At Patho logist Time Signature Sodium 138 133 - 144 05/29/2021 [facility] mmol/L 3:31 PM CDT Potassium 4.0 3.4 - 5.3 05/29/2021 [facility] mmol/L 3:31 PM CDT Chloride 106 94 - 109 05/29/2021 [facility] mmol/L 3:31 PM CDT Carbon Dioxide 26 20 - 32 05/29/2021 [facility] (CO2) mmol/L 3:31 PM CDT Anion Gap 6 3 - 14 05/29/2021 [facility] mmol/L 3:31 PM CDT Urea Nitrogen 16 7 - 30 05/29/2021 [facility] mg/dL 3:31 PM CDT Creatinine 1.15 0.66 - 05/29/2021 [facility] 1.25 mg/dL 3:31 PM CDT Calcium 9.5 8.5 - 10.1 05/29/2021 [facility] mg/dL 3:31 PM CDT Glucose 100 (H) 70 - 99 05/29/2021 [facility] mg/dL 3:31 PM CDT GFR Estimate 88 >60 05/29/2021 [facility] mL/min/1.7 3:31 PM CDT 3m2 Comment: As of May 10, 2021, eGFR is ca lculated by the CKD-EPI creatinine equation, without race adjustment. eGFR can be inf luenced by muscle mass, exercise, and diet. The reported eGFR is an estimation only and is only applicable if the renal function is stable. Specimen Anatomical Collection Method / Collection Time Recei brianne Time (Source) Location / Volume Laterality Blood STRUCTURE OF LEFT Venipuncture / 05/28/2021 6:11 05/28 6:11 UPPER LIMB / Unknown PM CDT PM CDT Unknown Annalisa Silva NP LAB - BLOOD ORDERABLES Performing Organization Address City/State/ZIP Code Phon e Number OX LABORATORY [place], [place] [phone] [place] [facility] [address] [place] [address] Lab (no room number, 1st floor of clinic) OX LAB[facility]ATORY [place], [place] [phone] [facility] [address] [address] Lab (no room number, 1st floor of clinic) CBC with platelets (05/28/2021 6:11 PM CDT) P athologist Signature WBC Count 6.6 4.0 - 11.0 05/28/2021 [facility] 10e3/uL 6:13 PM CDT RBC Count 4.52 4.40 - 05/28/2021 [facility] 5.90 6:13 PM CDT 10e6/uL Hemoglobin 14.9 13.3 - 05/28/2021 [facility] 17.7 g/dL 6:13 PM CDT Hematocrit 44.3 40.0 - 05/28/2021 [facility] 53.0 % 6:13 PM CDT MCV 98 78 - 100 05/28/2021 [facility] fL 6:13 PM CDT MCH 33.0 26.5 - 05/28/2021 [facility] 33.0 pg 6:13 PM CDT MCHC 33.6 31.5 - 05/28/2021 [facility] 36.5 g/dL 6:13 PM CDT RDW 13.0 10.0 - 05/28/2021 [facility] 15.0 % 6:13 PM CDT Platelet Count 184 150 - 450 05/28/2021 [facility] 10e3/uL 6:13 PM CDT Specimen Anatomical Collection Method / Collection Time Recei brianne Time (Source) Location / Volume Laterality Blood STRUCTURE OF LEFT Venipuncture / 05/28/2021 6:11 05/28 6:11 UPPER LIMB / Unknown PM CDT PM CDT Unknown Annalisa Silva DIRECTOR OF PATIENT FINANCIAL SERVICES LAB - BLOOD ORDERABLES Performing Organization Address City/State/ZIP Code Phon [place] [address] [facility] [address] [facility] [facility], [address] [place] [address], [phone] [facility] [address], [address] documented in this encounter Visit Diagnoses Diagnosis Healthcare maintenance - Primary Routine general medical examination at a health care facility Generalized anxiety disorder Gastroesophageal reflux disease with eso phagitis without hemorrhage documented in this encounter Additional Health Concerns Assessment Noted Time PHQ-9 Depression Total Score: 7 05/28/2021 6:06 PM CDT documented as of this encounter Care Teams Plush Brusher Relationship Specialty Start Date End Date Annalisa Silva, PCP - General Nurse Practitioner - 04/11/19 DIRECTOR OF PATIENT FINANCIAL SERVICES Adult Health [address] [place] [address] Annalisa Silva, Assigned PCP 01/04/21 DIRECTOR OF PATIENT FINANCIAL SERVICES [address] [place] [address] Tanya Lentz Assigned Heart and 04/12/21 [facility] M[facility] Vascular Provider [address] [place] [address] documented as of this encounter
--- OUTSIDE RECORDS SUMMARY | 2022-09-26 20:22 | XMS_ITS | Encounter Summary ---
:1995 Author Organization [place] Address [address] [place] [address] Care Team Providers Name Role Phone Annalisa Silva RESEARCH METHODS INSTRUCTOR Primary Care Provider [phone] Marcy Ricketts APRN PLUMBING INSTALLER Unavailable [phone] Reason for Referral (Routine) - Closed Specialty Diagnoses / Procedures Referred By Contact Refer red To Contact Diagnoses SVT (supraventricular tachycardia) (H) [facility] [address] [facility] [address] [place] [address] Referral ID Status Reason Start Date Expiration Date Visits Requ ested Visits Authorized [id number] Closed 01/01/2021 01/01/2022 1 1 COT PACKER Encounter Details Date Type Department Care Team Description 01/01/2021 Orders Only [facility] Heart Trace Brewster RN SVT (supraventricular Clinic [place] tachycardia) (H) [address] [facility] (Primary Dx) [address] [place] [address] Social History Tobacco Use Types Packs/Day [...] alcohol do you have on a typical or 4 11/15/2018 day when you are drinking? How often do you have six or more drinks on one occasion? We ekly 11/15/2018 Sex Assigned at Date Recorded Male 07/12/2020 3:49 AM CDT COVID-19 Exposure Response Date Recorded In the last month, have you been in contact with No / Unsure 12/29/2020 10:56 AM APRICOT PACKER someone who was confirmed or suspected to have Coronavirus / COVID-19? documented as of this encounter Miscellaneous Notes Addendum Note - Trace Brewster, RN - 01/01/2021 9:43 AM APRICOT PACKER Addended by: TRACE BREWSTER on: 01/01/2021 09:47 AM Modules accepted: Orders COT PACKER documented in this encounter Plan of Treatment Upcoming Encounters Date Type Specialty Care Team Description 11/04/2022 Office Visit Internal Medicine Marcy Ricketts, LIQUOR TESTER PLUMBING INSTALLER [address] [place], [place] [address] (Wo rk) Scheduled Referrals Name Type Priority Associated Diagnoses Order S chedule Follow-Up with Cardiac Referral Routine SVT (supraventricu lar Expected: 02/01/2021 Advanced Practice tachycardia) (H) (Appro ximate), Provider Expires: 2022 documented as of this encounter Visit Diagnoses Diagnosis SVT (supraventricular tachycardia) (H) - Primary Other specified cardiac dysrhythmias documented in this encounter Additional Health Concerns Assessment Noted Time PHQ-9 Depression Total Score: 16 04/18/2019 11:20 AM C DT documented as of this encounter Care Teams Bullet Assembly Press Setter Operator Relationship Specialty Start Date End Date Annalisa Silva NP PCP - General Nurse Practitioner - Adult 04/11/19 [address] [place] [address] Marcy Ricketts, Dirk PCP 10/05/20 01/03/21 LIQUOR TESTER PLUMBING INSTALLER [address] [place] [address] documented as of this encounter
--- OUTSIDE RECORDS SUMMARY | 2022-09-26 20:22 | XMS_ITS | Encounter Summary ---
:1995 Author Organization [place] Address [address] [place] [address] Care Team Providers Name Role Phone Annalisa Silva DERMATOPATHOLOGIST Primary Care Provider [phone] Annalisa Silva DERMATOPATHOLOGIST Unavailable Tanya Lentz APRN CHAPLAIN Unavailable + Reason for Visit Reason Comments Laceration Encounter Details Date Type Department Care Team Description 06/18/2022 Emergency [facility] Emergency Dept [address] [place] [address] Social History Tobacco Use Types Packs/Day Years [...] have Coronavirus/COVID-19? documented as of this encounter Last Filed Vital Signs Vital Sign Reading Time Taken Comments Blood Pressure 152/96 06/18/2022 12:05 PM CDT Pulse 76 06/18/2022 12:05 PM CDT Temperature 36.7 ??C (98 ??F) 06/18/2022 12:05 PM CDT Respiratory Rate 18 06/18/2022 12:05 PM CDT Oxygen Saturation 98% 06/18/2022 12:05 PM CDT Inhaled Oxygen Concentration - - Weight - - Height - - Body Mass Index - - documented in this encounter Medications at Time of Discharge Medication Sig Dispensed Refills Start Date End Date azithromycin (ZITHROMAX) Two tablets first 6 tablet 0 01/29 250 MG tabletIndications: day, then one tablet Sinusitis, unspecified daily for four days. chronicity, unspecified location busPIRone (BUSPAR) 10 MG Take 1 tablet (10 mg) 60 tablet 1 05/28/2021 tabletIndications: by mouth 2 times Generalized anxiety daily disorder hydrOXYzine (ATARAX) 25 MG Take 1-2 tablets 60 tablet 1 tabletIndications: (25-50 mg) by mouth Generalized anxiety every 4 hours as disorder needed for anxiety Multiple Vitamins-Minerals Take 1 tablet by 0 (RALF MULTI MEN PO) mouth daily [place]-3 Fatty Acids (FISH Take 1 capsule by 0 OIL OMEGA-3 PO) mouth daily traZODone (DESYREL) 50 MG One or two at night 60 tablet 1 0 04/15/2019 tabletIndications: as needed Generalized anxiety disorder vortioxetine (TRINTELLIX) Take 1 tablet (10 mg) 30 tablet 1 05/28/2021 10 MG tabletIndications: by mouth daily Generalized anxiety disorder documented as of this encounter ED Notes Марина Avalos RN - 06/18/2022 12:01 PM CDT Patient c/o laceration to left pinky digit. CMS intact. Patient is able to move his finger still. ABCs intact. Bleeding controlled. Tetanus unknown. documented in this encounter Plan of Treatment Upcoming Encounters Date Type Specialty Care Team Description 11/04/2022 Office Visit Internal Medicine Marcy Ricketts APRN CHAPLAIN [address] [place], [place] [address] (Wo rk) documented as of this encounter Visit Diagnoses Not on filedocumented in this encounter Additional Health Concerns Assessment Noted Time PHQ-9 Depression Total Score: 7 05/28/2021 6:06 PM CDT documented as of this encounter Care Teams Manufactured Buildings Supervisor Relationship Specialty Start Date End Date Annalisa Silva, PCP - General Nurse Practitioner - 04/11/19 DERMATOPATHOLOGIST Adult Health [address] [place] [address] Annalisa Silva, Assigned PCP 01/04/21 DERMATOPATHOLOGIST [address] [place], [place] [address] Tanya Lentz Assigned Heart and 04/12/21 CLAUDIO Mclain CHAPLAIN Vascular Provider [address] [place] [address] documented as of this encounter
--- OUTSIDE RECORDS SUMMARY | 2022-09-26 20:22 | XMS_ITS | Encounter Summary ---
:1995 Author Organization [place] Address [facility] 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 documented as of this encounter Plan of Treatment Upcoming Encounters Date Type Specialty Care Team Description 11/04/2022 Office Visit Internal Medicine Marcy Ricketts APRN COMMUNICATIONS DEPARTMENT CHAIR [address] [place], [place] [address] (Wo rk) documented as of this encounter Visit Diagnoses Not on filedocumented in this encounter Additional Health Concerns Assessment Noted Time PHQ-9 Depression Total Score: 16 04/18/2019 11:20 AM C DT documented as of this encounter Care Teams Verification Lead Relationship Specialty Start Date End Date Annalisa Silva, SENIOR BUSINESS DEVELOPMENT MANAGER PCP - General Nurse Practitioner - Adult 04/11/19 [address] [place] [address] Marcy Ricketts, Assigned PCP 10/05/20 01/03/21 FIREFIGHTER MARINE COMMUNICATIONS DEPARTMENT CHAIR [address] [place] [address] documented as of this encounter
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
--- OUTSIDE RECORDS SUMMARY | 2022-09-26 20:22 | XMS_ITS | Encounter Summary ---
:1995 Author Organization [facility] Address [address] [place] [address] Care Team Providers Name Role Phone Annalisa Silva POCKET SETTER Primary Care Provider [phone] Marcy Ricketts APRN EMBROIDERER HAND Unavailable [phone] Reason for Visit Auth/Cert Specialty Diagnoses / Procedures Referred By Contact Refer red To Contact Med Surg Diagnoses Palpitations Super ventricular tachycardia [facility] Suites Procedures HC EPHYS EVAL W/ ABLATION SUPRAVENT ARRHYTHMIA EP Ablation SVT [address] [phone] Phone: Referral ID Status Reason Start Date Expiration Date Visits Requ ested Visits Authorized [id number] 1 1 Encounter Details Date Type Department Care Team Description 01/02/2021 Surgery [facility] Sanchez Darby MD EP Ablation SVT [facility] [address] [address] [place] [place] [id number] [phone] Surgery Details Date/Time Status Location OR Service Patient Class Case Case Trauma Class Type Case? 01/02/21 1:00 Posted [facility] Cath Cardiology Outpatient PM CARDIAC Lab 3 SUPERVISOR PHOTOSTAT Panel 1 Procedure LRB Anes Op Region Wound Class Commen ts EP Ablation SVT N/A Conscious Sedation Heart S VT Ablation, Li, prep given to pt, p t arrive at 11:00. LF Surgeon Surgeon Role Service Panel Sanchez Darby MD Primary Cardiology 1 documented in this encounter Social History Tobacco Use Types Packs/Day Years [...] with No / Unsure 01/02/2021 10:52 AM CERTIFIED PEER SPECIALIST someone who was confirmed or suspected to have Coronavirus / COVID-19? documented as of this encounter Last Filed Vital Signs Vital Sign Reading Time Taken Comments Blood Pressure 119/68 01/02/2021 3:00 PM CERTIFIED PEER SPECIALIST Pulse 45 01/02/2021 3:00 PM CERTIFIED PEER SPECIALIST Temperature 36.8 ??C (98.2 ??F) 01/02/2021 12:05 PM CERTIFIED PEER SPECIALIST Respiratory Rate 16 01/02/2021 2:30 PM CERTIFIED PEER SPECIALIST Oxygen Saturation 96% 01/02/2021 3:00 PM CERTIFIED PEER SPECIALIST Inhaled Oxygen Concentration - - Weight 144.6 kg (318 lb 12.8 oz) 01/02/2021 11:45 AM CERTIFIED PEER SPECIALIST Height 182.9 cm (6') 01/02/2021 11:45 AM CERTIFIED PEER SPECIALIST Body Mass Index 43.24 01/02/2021 11:45 AM CERTIFIED PEER SPECIALIST documented in this encounter Discharge Instructions Discharge Stacia Wade RN - 01/02/2021 11:20 AM CST SVT Ablation Discharge Instructions After you go home: ??? Have an adult stay with you until tomorrow. ??? You may resume your normal diet. For 24 hours - due to the sedation you received: ??? Relax and take it easy. ??? Do NOT make any important or legal decisions. ??? Do NOT drive or operate machines at home or at work. ??? Do NOT drink alcohol. Care of Puncture Sites: ??? For the first 24 hrs - check the puncture site every 1-2 hours while awake. ??? For 2 days, when you cough, sneeze, laugh or move your bowels, hold your hand over the puncture site and press firmly. ??? Remove the dressing(s) after 24 hours. If there is minor oozing, apply a bandaid and remove it after 12 hours. ??? It is normal to have a small bruise, pea sized lump or soreness at the site. ??? You may shower tomorrow. Do NOT take a bath, or use a hot tub or pool for at least 3 days. Do NOT scrub the site. Do not use lotion or powder near the puncture site. Activity - For 2-3 days: Neck/Chest site: ??? Avoid heavy lifting or the overuse of your shoulder. Groin site: ??? No stooping or squatting ??? Do NOT do any heavy activity such as exercise, lifting, or straining. ??? Do NOT do housework, yard work or any activity that make you sweat ??? Do NOT lift more than 10 pounds Bleeding: Neck/Chest site: ??? If you start bleeding from the site in your neck/chest, sit down and press gently on the site for 10 minutes. ??? Once bleeding stops, sit still for 2 hours. ??? Call [facility] as soon as you can Groin site: ??? If you start bleeding from the site in your groin, lie down flat and press firmly on the site for 10 minutes. ??? Once bleeding stops, lay flat for 2 hours. ??? Call [facility] as soon as you can. Call 911 right away if you have heavy bleeding or bleeding that does not stop. Medicines: ??? Take your medications, including blood thinners, unless your provider tells you not to. ??? If you have stopped any medicines, check with your provider about when to restart them. ??? If you have pain or shortness of breath, you may take Advil (ibuprofen) or Tylenol (acetaminophen). Follow Up Appointments: You will receive a phone call from Dr Darby's RN on TuesdayJanuary 05 ??? January 30 at 1:30 pm with Nataliya Mackey Call the clinic if: ??? You have increased pain or a large or growing hard lump around the site. ??? The site is red, swollen, hot or tender. ??? Blood or fluid is draining from the site. ??? You have chills or a fever greater than 101 F (38 C). ??? Your leg feels numb, cool or changes color. ??? Increased pain in the chest and/or groin. ??? Increased shortness of breath ??? Chest pain not relieved by Tylenol or Advil ??? New pain in the back or belly that you cannot control with Tylenol. ??? Recurrent irregular or fast heart rate lasting over 2 hours. ??? Any questions or concerns. Heart rhythms: You may have some irregular heartbeats. These feel very strong. They may make you feel that the fastheart rhythm is going to start again. Give it time. The irregular beats should occur less often. [facility]: [phone] ( 8am-5pm M-F) Alecia Vega [phone] option 2 (7 days a week) wig sales consultant Smoke Tester IFIED PEER SPECIALIST documented in this encounter Medications at Time of Discharge Medication Sig Dispensed Refills Start Date End Date hydrOXYzine (ATARAX) 25 Take 1-2 tablets 60 tablet 1 2018 MG tabletIndications: (25-50 mg) by mouth Generalized anxiety every 4 hours as disorder needed for anxiety Multiple Take 1 tablet by 0 Vitamins-Minerals (RALF mouth daily MULTI MEN PO) Scott-3 Fatty Acids (FISH Take 1 capsule by 0 OIL OMEGA-3 PO) mouth daily traZODone (DESYREL) 50 MG One or two at night 60 tablet 1 0 04/15/2019 tabletIndications: as needed Generalized anxiety disorder busPIRone (BUSPAR) 10 MG Take 1 tablet (10 60 tablet 1 03/3105/28/2021 tabletIndications: mg) by mouth 2 times Generalized anxiety daily disorder documented as of this encounter Progress Notes Carole Weiner RN - 01/02/2021 7:23 PM CST Care Suites Discharge Nursing Note Patient Information Name: Seamus Barnes Age: [age] year old Discharge Education: Discharge instructions reviewed: Yes with patient and mother. Additional education/resources provided: yes Patient/patient ambulatory service representative verbalizes understanding: Yes Discharge Plans: Discharge location: Care Suites to home. Discharge ride contacted: Yes Approximate discharge time: 1900 Discharge Criteria: Discharge criteria met and vital signs stable: VSS, NSR, ambulated, voided taking po liquids. 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 Successful ablation. No complications. May be discharged around 6-7pm. IFIED PEER SPECIALIST Carl Pacheco RN - 01/02/2021 12:17 PM CST Care Suites Admission Nursing Note Patient Information Name: Seamus Barnes Age: [age] year old Reason for admission: ablation Care Suites arrival time: 1100 Visitor Information Name: Aline Informed of visitor restrictions: Yes 1 visitor allowed per patient Visitor must screen negative for COVID symptoms Visitor must wear a mask Waiting rooms closed to visitors Patient Admission/Assessment Pre-procedure assessment complete: Yes If abnormal assessment/labs, provider notified: No NPO: Yes Medications held per instructions/orders: Yes Consent: obtained If applicable, test status: na Patient oriented to room: Yes Education/questions answered: Yes Plan/other: Review labs, obtain consent and proceed with scheduled treatment or intervention Discharge Planning Discharge name/phone number: Aline Zhang - [phone] Overnight post sedation caregiver: Aline Ramírez [phone] Discharge location: home Carl Pacheco RN PATIENT/VISITOR WELLNESS SCREENING Step 1 Patient Screening 1. In the last month, have you been in contact with someone who was confirmed or suspected to have Coronavirus/COVID-19? No 2. Do you have the following symptoms? Fever/Chills? No Cough? No Shortness of breath? No New loss of taste or smell? No Sore throat? No Muscle or body aches? No Headaches? No Fatigue? No Vomiting or diarrhea? No Step 2 Visitor Screening 1. Name of Visitor (1 visitor per patient): Aline 2. In the last month, have you been in contact with someone who was confirmed or suspected to have Coronavirus/COVID-19? No 3. Do you have the following symptoms? Fever/Chills? No Cough? No Shortness of breath? No Skin rash? No Loss of taste or smell? No Sore throat? No Runny or stuffy nose? No Muscle or body aches? No Headaches? No Fatigue? No Vomiting or diarrhea? No IFIED PEER SPECIALIST documented in this encounter Miscellaneous Notes Pre-Procedure - Sanchez Darby MD - 01/02/2021 12:35 PM CST GENERAL PRE-PROCEDURE: Procedure: SVT ablation Date/Time: 01/02/2021 12:35 PM Verbal consent obtained?: Yes Written consent obtained?: Yes Risks and benefits: Risks, benefits and alternatives were discussed Consent given by: Patient Patient states understanding of procedure being performed: Yes Patient's understanding of procedure matches consent: Yes Procedure consent matches procedure scheduled: Yes Expected level of sedation: Moderate Appropriately NPO: Yes ASA Class: Class 3- Severe systemic disease, definite functional limitations Mallampati : Grade 1- soft palate, uvula, tonsillar pillars, and posterior pharyngeal wall visible Lungs: Lungs clear with good breath sounds bilaterally Heart: Normal heart sounds and rate History & Physical reviewed: History and physical reviewed and no updates needed Statement of review: I have reviewed the lab findings, diagnostic data, medications, and the plan for sedation IFIED PEER SPECIALIST documented in this encounter Plan of Treatment Upcoming Encounters Date Type Specialty Care Team Description 11/04/2022 Office Visit Internal Medicine Marcy Ricketts APRN EMBROIDERER HAND [address] [place], [place] [address] (Wo rk) documented as of this encounter Procedures Procedure Name Priority Date/Time Associated Diagnosis Comme nts EKG 12-LEAD, Routine 01/02/2021 3:12 PM Results f or this TRACING ONLY CERTIFIED PEER SPECIALIST procedure are i n the results section. EP ABLATION Routine 01/02/2021 2:06 PM Palpitations Results f or this CERTIFIED PEER SPECIALIST procedure are i n the results section. BASIC METABOLIC STAT 01/02/2021 12:00 Palpitations Results for this PANEL PM CERTIFIED PEER SPECIALIST procedure are i n the results section. CBC WITH PLATELETS STAT 01/02/2021 12:00 Palpitations Resul ts for this PM CERTIFIED PEER SPECIALIST procedure are i n the results section. EKG 12-LEAD, STAT 01/02/2021 11:51 Results for this TRACING ONLY AM CERTIFIED PEER SPECIALIST procedure are i n the results section. documented in this encounter Results EKG 12-lead, tracing only (01/02/2021 3:12 PM CERTIFIED PEER SPECIALIST) [facility] gist Method Time Signature Interpretation ECG Click View RADIOLOGY Image link RESULTS to view waveform and result Specimen (Source) Anatomical Collection Method Collection Time Re ceived Time Location / / Volume Laterality 01/02/2021 3:12 PM CERTIFIED PEER SPECIALIST Sanchez Darby MD ECG ORDERABLES Performing Organization Address City/State/ZIP Code Phon e Number RADIOLOGY RESULTS EP ABLATION SVT (01/02/2021 2:06 PM CERTIFIED PEER SPECIALIST) Anatomical Region Laterality Modality Radio Fluoroscopy Specimen (Source) Anatomical Location Collection Method / Collectio n Time Received Time / Laterality Volume Narrative 01/02/2021 2:35 PM CERTIFIED PEER SPECIALIST PROCEDURES PERFORMED: 1. Conscious sedation. 2. Comprehensive EP study with left atri al recording through the coronary sinus. 3. Repeat EP study with isoproterenol in fusion. 4. 3D intracardiac mapping. 5. Ablation of an atypical AV node reent rant tachycardia. INDICATIONS FOR PROCEDURE: Mr. Cameron montana s a 25-year-old white male who initially presented with symptoms of pal pitations found to have rapid SVT with intermittent wide QRS tachycard ia during a hockey game. In addition he was found to have Wenckebach AV block during the night. PROCEDURE AND RESULTS: ??After the writt en informed consent was obtained the patient was transported to CV Lab 3 in the fasting state. I assessed the patient for sedation and ablation in the care suite and the EP lab. The procedure was performed under local anesthesia and sterile conditions. IV Versed and fentan yl were used for conscious sedation. The heart rate, blood pressure and oxygen saturation were monitored by the RN under my supervision . By using the Seldinger technique, a 5 Fr ench decapolar catheter was inserted through the left subclavian vei n and placed into the coronary sinus. Cannulation of the coronary sinus was somewhat difficult likely because of the orientation of the orific e. Three quadripolar catheters were inserted through the right femoral vein and were placed into the high right atrium, His bundle region, an d the RV apex. The patient was in sinus rhythm at [facility]. The AH and HV intervals were normal. Retrograde VA conduction wa s quite poor with Wenckebach cycle length greater than 600 ms. AV Sherice ckebach cycle length at baseline was 420 ms. AV node ERP was [address] cycle length 400 ms. Atrial ERP was [address] cycle length 400 ms. The patient had evidence of dual AV leonel l pathways at the baseline EP study. However there was no inducible SV T. After the baseline EP study, he was give n isoproterenol infusion 2 mcg/m. Repeat EP study was performed dur ing isoproterenol infusion. With atrial single and double atrial ext rastimulation, he still did not have inducible SVT. Atrial burst pac ing 320 ms was then performed which reproducibly induced nonsustained atypical AV node reentrant tachycardia. After the reproducible induction of AV n ode reentrant tachycardia, isoproterenol infusion was put on hold. The RV catheter was removed and the ablation catheter was inserted. The ablation catheter was [employer]CISSOID Chandler with 4 mm tip. The sagar ing and ablation were guided by the CARTO 3-D mapping system. The abl ation was applied to the slow pathway region of the AV node. I intenti onally put the ablation catheter more inferior and posterior edel r the coronary sinus. Slow junctional tachycardia was induced by th e ablation. After the ablation the patient was recha llenged with isoproterenol infusion. There was apparent prolongatio n of the Wenckebach cycle length up to 420 ms. There was no more i nducible SVT upon repeated testing. At the end of the procedure the catheter s and sheaths were removed and local pressure was applied to the punctu re sites. There was no complication. SANCHEZ DARBY MD Sanchez Darby MD CV ELECTROPHYSIOLOGY ORDERAB LES CBC with platelets (01/02/2021 12:00 PM CERTIFIED PEER SPECIALIST) athologist Signature WBC 6.6 4.0 - 11.0 01/02/2021 [facility] 10e9/L 12:14 PM [facility] RBC Count 4.94 4.4 - 5.9 01/02/2021 [facility] 10e12/L 12:14 PM [facility] Hemoglobin 15.5 13.3 - 01/02/2021 [facility] 17.7 g/dL 12:14 PM [facility] Hematocrit 47.3 40.0 - 01/02/2021 [facility] 53.0 % 12:14 PM [facility] MCV 96 78 - 100 01/02/2021 [facility] fl 12:14 PM [facility] MCH 31.4 26.5 - 01/02/2021 [facility] 33.0 pg 12:14 PM [facility] MCHC 32.8 31.5 - 01/02/2021 [facility] 36.5 g/dL 12:14 PM [facility] RDW 12.7 10.0 - 01/02/2021 [facility] 15.0 % 12:14 PM [facility] Platelet Count 191 150 - 450 01/02/2021 [facility] 10e9/L 12:14 PM [facility] Specimen Anatomical Collection Method Collection Time Receive d Time (Source) Location / / Volume Laterality Blood specimen 01/02/2021 12:00 (specimen) PM CERTIFIED PEER SPECIALIST 12:11 PM CERTIFIED PEER SPECIALIST Smoke Tester Invasive MD LAB - BLOOD ORDERABLES Performing Organization Address City/State/ZIP Code Phon e Number M [facility] [address] [address] [phone] [facility] [address] [address], [place] [phone] Basic metabolic panel (01/02/2021 12:00 PM [facility]) athologist Signature Sodium 141 133 - 144 01/02/2021 [place] mmol/L 12:33 PM [facility] Potassium 3.8 3.4 - 5.3 01/02/2021 [place] mmol/L 12:33 PM [facility] Chloride 107 94 - 109 01/02/2021 [place] mmol/L 12:33 PM [facility] Carbon Dioxide 29 20 - 32 01/02/2021 [place] mmol/L 12:50 PM [facility] Anion Gap 5 3 - 14 01/02/2021 [place] mmol/L 12:50 PM [facility] Glucose 92 70 - 99 01/02/2021 [place] mg/dL 12:50 PM [facility] Urea Nitrogen 15 7 - 30 01/02/2021 [place] mg/dL 12:50 PM [facility] Creatinine 1.12 0.66 - 01/02/2021 [place] 1.25 mg/dL 12:50 PM [facility] GFR Estimate >90 >60 01/02/2021 [place] mL/min/{1. 12:50 PM [facility] 73_m2} HOSPITAL Comment: Non GFR Calc Starting 10/17/2018, serum creatinine ba sed estimated GFR (eGFR) will be calculated using the Chronic Kidney Dise [facility] Epidemiology Collaboration (CKD-EPI) equation. GFR Estimate If >90 >60 mL/min/{1.73_m2} 01/02/2021 12:50 PM [facility] Comment: GFR Calc Starting 10/17/2018, serum creatinine ba sed estimated GFR (eGFR) will be calculated using the Chronic Kidney Dise [facility] Epidemiology Collaboration (CKD-EPI) equation. Calcium 9.1 8.5 - 10.1 mg/dL 01/02/2021 12:[address] CERTIFIED PEER SPECIALIST [facility] Specimen Anatomical Collection Method Collection Time Receive d Time (Source) Location / / Volume Laterality Blood specimen 01/02/2021 12:00 (specimen) PM CERTIFIED PEER SPECIALIST 12:11 PM CERTIFIED PEER SPECIALIST Smoke Tester Invasive LAB - BLOOD ORDERABLES Performing Organization Address City/State/ZIP Code Phon e Number M [facility] [address] [place] [address] [facility] [address] [place] [address], [place] [phone] EKG 12-lead, tracing only (01/02/2021 11:51 AM CERTIFIED PEER SPECIALIST) [facility] gist Method Time Signature Interpretation ECG Click View RADIOLOGY Image link RESULTS to view waveform and result Specimen (Source) Anatomical Collection Method Collection Time Re ceived Time Location / / Volume Laterality 01/02/2021 11:51 AM CERTIFIED PEER SPECIALIST Smoke Tester Invasive ECG ORDERABLES Performing Organization Address City/State/ZIP Code Phon e Number RADIOLOGY RESULTS documented in this encounter Visit Diagnoses Diagnosis Palpitations - Primary Palpitations SVT (supraventricular tachycardia) (H) Other specified cardiac dysrhythmias SVT (supraventricular tachycardia) (H) Other specified cardiac dysrhythmias Palpitations documented in this encounter Admitting Diagnoses Diagnosis Palpitations SVT (supraventricular tachycardia) (H) Other specified cardiac dysrhythmias documented in this encounter Administered Medications Inactive Administered Medications - up to 3 most recent administrations Medication Order MAR Action Action Date Dose Rate Site fentaNYL (PF) (SUBLIMAZE) Given 01/02/2021 2:04 PM CERTIFIED PEER SPECIALIST 50 mcg injection ONCE PRN, Administer over 3-5 Minutes, Starting on Tue01/02/21 at 1259, Cardiac Intra-procedure Given 01/02/2021 1:52 PM CERTIFIED PEER SPECIALIST 25 mcg Given 01/02/2021 1:30 PM CERTIFIED PEER SPECIALIST 25 mcg isoproterenol (ISUPREL) 200 Restarted 01/02/2021 1:55 PM CERTIFIED PEER SPECIALIST 2 mcg/m in 30 mL/hr mcg/50 mL pre-mix CONTINUOUS PRN, Starting on Tue01/02/21 at 1336, Cardiac Intra-procedure New Bag 01/02/2021 1:36 PM CERTIFIED PEER SPECIALIST 2 mcg/min 30 mL/hr lidocaine 1 % Given 01/02/2021 1:20 PM CERTIFIED PEER SPECIALIST 16 mLs Right Groin ONCE PRN, Starting on Tue01/02/21 at 1307, Cardiac Intra-procedure Given 01/02/2021 1:12 PM CERTIFIED PEER SPECIALIST 10 mLs Right Groin Given 01/02/2021 1:07 PM CERTIFIED PEER SPECIALIST 10 mLs Neck midazolam (VERSED) injection Given 01/02/2021 2:05 PM CERTIFIED PEER SPECIALIST 0.5 mg Administer over 2 Minutes, ONCE PRN, Starting on Tue01/02/21 at 1259, Cardiac Intra-procedure Given 01/02/2021 1:52 PM CERTIFIED PEER SPECIALIST 0.5 mg Given 01/02/2021 1:30 PM CERTIFIED PEER SPECIALIST 0.5 mg naloxone (NARCAN) injection 0.2 mg 0.2 mg, Intravenous, EVERY 2 MIN PRN, op ioid reversal, Starting on Tue01/02/21 at 1436, Administer intravenous route when available and notify provider when administered. For unintended sedation or respiratory depression if all of the below criteria are met: ~ respiratory rate LES S than or EQUAL to 8. ~SaO2 less than 92% and or/end-tidal CO2 is greater than 50. ~ the patient is receiving an opioid, has unintended sedations assessed as RASS (-3), and is cur rently not on mechanical ventilation. RASS scale moderate (-3) is movement or eye opening to voice but no eye contact. Patient Monitoring Once the patient has demonstrated a response to the naloxone, continue to monitor respiratory rate, depth, oxygen saturation and end-tidal CO2 (if available) every 15 mi nutes x 2, then every 30 minutes x 2, then every 1 hour x 1 after each naloxone dose. Consider tr ansfer to ICU if patient respiratory parameters have not improved after 4 nalox one doses. For ordered IV doses 0.1-2mg give IVP. Give each 0.4mg over 15 seconds in emergency situations. For non-emergent situations further dilu te in 9mL of NS to facilitate titration of response., Cardiac Post-procedure naloxone (NARCAN) injection 0.2 mg 0.2 mg, Intramuscular, EVERY 2 MIN PRN, opioid reversal, Starting on Tue01/02/21 at 1436, Administer intramuscular if an int ravenous route is not available and notify provider when administered. For unintend ed sedation or respiratory depression if all of the below criteria are met: ~ respiratory rate LESS than or EQUAL to 8. ~SaO2 less than 92% and or/end-tidal CO2 is greater th an 50. ~ the patient is receiving an opioid, has unintended sedations assessed as RASS (-3), and is currently not on mechanical ventilation. RASS scale moderate (-3) is movement or eye opening to voice but no eye contact. Patient Monitoring Once the patient has demonstrated a response to the naloxone, continue to m onitor respiratory rate, depth, oxygen saturation and end-tidal CO2 (if availab le) every 15 minutes x 2, then every 30 minutes x 2, then every 1 hour x 1 after each naloxone dose. Consider transfer to ICU if patient respiratory parameters have not improved after 4 naloxone doses. For ordered IV doses 0.1-2mg give IVP. Give each 0.4mg over 15 seconds in emergency situations. For non -emergent situations further dilute in 9mL of NS to facilitate titration of response., Cardiac Po st-procedure naloxone (NARCAN) injection 0.4 mg 0.4 mg, Intravenous, EVERY 2 MIN PRN, op ioid reversal, Starting on Tue01/02/21 at 1436, Administer intravenous route when available and notify provider when administered. For unintended sedation or respiratory depression if all of the below criteria are met: ~ respiratory rate LES S than or EQUAL to 8. ~ SaO2 less than 92% and or/end-tidal CO2 is greater than 50. ~ the patient is receiving an opioid, has unintended sedation assessed as RASS (-4 ) or (-5) and patient is currently not on mechanical ventilation. RASS scale (-4) is deep sedation with no response to voice but movement or eye opening to physical stimulation. R ASS scale (-5) is unarousable. Patient Monitoring Once the patient has demonstrated a response to the naloxone, continue to monitor respiratory rate, depth, oxygen saturation and end-tidal CO2 (if available) every 15 mi nutes x 2, then every 30 minutes x 2, then every 1 hour x 1 after each naloxone dose. Consider tr ansfer to ICU if patient respiratory parameters have not improved after 4 nalox one doses. For ordered IV doses 0.1-2mg give IVP. Give each 0.4mg over 15 seconds in emergency situations. For non-emergent situations further dilu te in 9mL of NS to facilitate titration of response., Cardiac Post-procedure naloxone (NARCAN) injection 0.4 mg 0.4 mg, Intramuscular, EVERY 2 MIN PRN, opioid reversal, Starting on Tue01/02/21 at 1436, Administer intramuscular if an int ravenous route is not available and notify provider when administered. For unintend ed sedation or respiratory depression if all of the below criteria are met: ~ res piratory rate LESS than or EQUAL to 8. ~ SaO2 less than 92% and or/end-tidal CO2 is greater virgilio n 50. ~ the patient is receiving an opioid, has unintended sedation assessed as RASS (-4) or (-5) and patient is currently not on mechanical ventilation. RA SS scale (-4) is deep sedation with no response to voice but movement or eye opening to physical stimulation. RASS scale (-5) is unarousa ble. Patient Monitoring Once the patient has demonstrated a response to the nalox one, continue to monitor respiratory rate, depth, oxygen saturation and end-tidal CO2 (if availab le) every 15 minutes x 2, then every 30 minutes x 2, then every 1 hour x 1 after each naloxone dose. Consider transfer to ICU if patient respiratory parameters have not improved after 4 naloxone doses. For ordered IV doses 0.1-2mg give IVP. Give each 0.4mg over 15 seconds in emergency situations. For non -emergent situations further dilute in 9mL of NS to facilitate titration of response., Cardiac Po st-procedure oxyCODONE-acetaminophen (PERCOCET) 5-325 MG per tablet 1 tablet 1 tablet, Oral, EVERY 4 HOURS PRN, other , mild or moderate pain, Starting on Tue01/02/21 at 1436, Maximum acetaminophen do se from all sources= 75 mg/kg/day not to exceed 4 grams, Cardiac Post-procedure documented in this encounter Active and Recently Administered Medications Times are shown in CERTIFIED PEER SPECIALIST. PRN Medication Order 12/31/2020 01/01/2021 01/02/2021 fentaNYL (PF) (SUBLIMAZE) injection (CANCELED) 1259 (Given - Provider: Kathy Gross RN)1330 (Given - Provider: Kathy Gross RN)1352 (Given - Provider: Kathy Gross RN)1404 (Given - Provider: Kathy Gross RN) ONCE PRN, Administer over 3-5 Minutes, S tarting Tue01/02/21 at 1259, Cardiac Intra-procedure isoproterenol (ISUPREL) 200 mcg/50 mL pre-mix (CANCELED) 1336 (New Bag - Provider: Kathy Gross RN)1347 (Stopped - Provider: Kathy Gross RN)1355 (Restarted - Provider: Kathy Gross, NICOLA)1406 (Stopped - Provider: Kathy Gross RN) CONTINUOUS PRN, Starting Tue01/02/21 at 1336, Cardiac Intra-proce dure lidocaine 1 % (CANCELED) 1307 (G iven - Provider: Sanchez Darby MD - Comment: lt subclavian)1312 (Given - Provider: Sanchez Darby MD)1320 (Given - Provider: Sanchez Darby MD) ONCE PRN, Starting Tue01/02/21 at 1307, Cardiac Intra-procedure midazolam (VERSED) injection (CANCELED) 1259 (Given - Provider: Kathy Gross RN)1330 (Given - Provider: Kathy Gross RN)1352 (Given - Provider: Kathy Gross RN)1405 (Given - Provider: Kathy Gross RN) Administer over 2 Minutes, ONCE PRN, Sta rting Tue01/02/21 at 1259, Cardiac Intra-procedure naloxone (NARCAN) injection 0.2 mg 0.2 mg, Intravenous, EVERY 2 MIN PRN, op ioid reversal, Starting Tue01/02/21 at 1436, Administer intravenous route when available and notify provider when administered. For unintended sedation or respirat ory depression if all of the below crite krystal are met: ~ respiratory rate LESS than or EQUAL to 8. ~SaO2 less than 92% and or/end-tidal CO2 is greater than 50. ~ the patient is receiving an opioid, has un intended sedations assessed as RASS (-3) , and is currently not on mechanical ventilation. RASS scale moderate (-3) is movement or eye opening to voice but no eye contact. Patient Monitoring Once the pat ient has demonstrated a response to the naloxone, continue to monitor respiratory rate, depth, oxygen saturation and end-tidal CO2 (if available) every 15 minutes x 2, then every 30 minutes x 2, then ev brook 1 hour x 1 after each naloxone dose. Consider transfer to ICU if patient respiratory parameters have not improved after 4 naloxone doses. For ordered IV doses 0.1-2mg give IVP. Give each 0.4mg over 15 seconds in emergency situations. For non-emergent situations further dilute in 9mL of NS to facilitate titration of response., Cardiac Post-procedure naloxone (NARCAN) injection 0.2 mg 0.2 mg, Intramuscular, EVERY 2 MIN PRN, opioid reversal, Starting Tue01/02/21 at 1436, Administer intramuscular if an intravenous route is not available and notify provider when administered. For uninten ded sedation or respiratory depression i f all of the below criteria are met: ~ respiratory rate LESS than or EQUAL to 8. ~SaO2 less than 92% and or/end-tidal CO2 is greater than 50. ~ the patient is rec eiving an opioid, has unintended sedatio ns assessed as RASS (-3), and is currently not on mechanical ventilation. RASS scale moderate (-3) is movement or eye opening to voice but no eye contact. Patient Monitoring Once the patient has demonst rated a response to the naloxone, continue to monitor respiratory rate, depth, oxygen saturation and end-tidal CO2 (if available) every 15 minutes x 2, then every 30 minutes x 2, then every 1 hour x 1 a fter each naloxone dose. Consider transfer to ICU if patient respiratory parameters have not improved after 4 naloxone doses. For ordered IV doses 0.1-2mg give IV P. Give each 0.4mg over 15 seconds in em ergency situations. For non-emergent situations further dilute in 9mL of NS to facilitate titration of response., Cardiac Post-procedure naloxone (NARCAN) injection 0.4 mg 0.4 mg, Intravenous, EVERY 2 MIN PRN, op ioid reversal, Starting Tue01/02/21 at 1436, Administer intravenous route when available and notify provider when administered. For unintended sedation or respirat ory depression if all of the below crite krystal are met: ~ respiratory rate LESS than or EQUAL to 8. ~ SaO2 less than 92% and or/end-tidal CO2 is greater than 50. ~ the patient is receiving an opioid, has u nintended sedation assessed as RASS (-4) or (-5) and patient is currently not on mechanical ventilation. RASS scale (-4) is deep sedation with no response to voice but movement or eye opening to physica l stimulation. RASS scale (-5) is unarou sable. Patient Monitoring Once the patient has demonstrated a response to the naloxone, continue to monitor respiratory rate, depth, oxygen saturation and end-tid al CO2 (if available) every 15 minutes x 2, then every 30 minutes x 2, then every 1 hour x 1 after each naloxone dose. Consider transfer to ICU if patient respiratory parameters have not improved after 4 naloxone doses. For ordered IV doses 0 .1-2mg give IVP. Give each 0.4mg over 15 seconds in emergency situations. For non-emergent situations further dilute in 9mL of NS to facilitate titration of response., Cardiac Post-procedure naloxone (NARCAN) injection 0.4 mg 0.4 mg, Intramuscular, EVERY 2 MIN PRN, opioid reversal, Starting Tue01/02/21 at 1436, Administer intramuscular if an intravenous route is not available and notify provider when administered. For uninten ded sedation or respiratory depression i f all of the below criteria are met: ~ respiratory rate LESS than or EQUAL to 8. ~ SaO2 less than 92% and or/end-tidal CO2 is greater than 50. ~ the patient is re ceiving an opioid, has unintended sedati on assessed as RASS (-4) or (-5) and patient is currently not on mechanical ventilation. RASS scale (-4) is deep sedation with no response to voice but movement o r eye opening to physical stimulation. R ASS scale (-5) is unarousable. Patient Monitoring Once the patient has demonstrated a response to the naloxone, continue to monitor respiratory rate, depth, oxyge n saturation and end-tidal CO2 (if avail able) every 15 minutes x 2, then every 30 minutes x 2, then every 1 hour x 1 after each naloxone dose. Consider transfer to ICU if patient respiratory parameters have not improved after 4 naloxone doses . For ordered IV doses 0.1-2mg give IVP. Give each 0.4mg over 15 seconds in emergency situations. For non-emergent situations further dilute in 9mL of NS to facil itate titration of response., Cardiac Post-procedure oxyCODONE-acetaminophen (PERCOCET) 5-325 MG per tablet 1 tablet 1 tablet, Oral, EVERY 4 HOURS PRN, other , mild or moderate pain, Starting Tue01/02/21 at 1436, Maximum acetaminophen dose from all sources= 75 mg/kg/day not to exceed 4 grams, Cardiac Post-procedure documented in this encounter Additional Health Concerns Assessment Noted Time PHQ-9 Depression Total Score: 16 04/18/2019 11:20 AM C DT documented as of this encounter Care Teams Vp Product Relationship Specialty Start Date End Date Annalisa Silva, BETTY PCP - General Nurse Practitioner - Adult 04/11/19 [address] [place], [place] [id number] Marcy Ricketts, Assigned PCP 10/05/20 01/03/21 COMMUNICATIONS AGENT EMBROIDERER HAND [address] [place], [place] [id number] documented as of this encounter
--- OUTSIDE RECORDS SUMMARY | 2022-09-26 20:22 | XMS_ITS | Encounter Summary ---
:1995 Author Organization [facility] Address [address] [place] [address] Care Team Providers Name Role Phone Annalisa Silva RACE STARTER Primary Care Provider [phone] Marcy Ricketts APRN MELTER SUPERVISOR Unavailable [phone] Reason for Visit Auth/Cert Specialty Diagnoses / Procedures Referred By Contact Refer red To Contact Med Surg Diagnoses Palpitations Super ventricular tachycardia Care Suites Procedures HC EPHYS EVAL W/ ABLATION SUPRAVENT ARRHYTHMIA EP Ablation SVT [address] [place] [address] Phone: Referral ID Status Reason Start Date Expiration Date Visits Requ ested Visits Authorized [id number] 1 1 Encounter Details Date Type Department Care Team Description 01/02/2021 Hospital Encounter [facility] Shruthi Alcantara ardiologistMD [facility] [place] [id number] Palpitations; [facility] Care Sanchez Darby MD [address] [place] [id number] SVT (supraventricular tachycardia) (H); Suites Palpitations; [address] SVT (supraventricular tachyc ardia) (H) [place] [id number] Social History Tobacco Use Types Packs/Day Years [...] with No / Unsure 01/02/2021 10:52 AM QUICK MIXER OPERATOR someone who was confirmed or suspected to have Coronavirus / COVID-19? documented as of this encounter Last Filed Vital Signs Vital Sign Reading Time Taken Comments Blood Pressure 118/63 01/02/2021 6:00 PM QUICK MIXER OPERATOR Pulse 44 01/02/2021 6:00 PM QUICK MIXER OPERATOR Temperature 36.8 ??C (98.2 ??F) 01/02/2021 12:05 PM QUICK MIXER OPERATOR Respiratory Rate 16 01/02/2021 6:00 PM QUICK MIXER OPERATOR Oxygen Saturation 98% 01/02/2021 3:45 PM QUICK MIXER OPERATOR Inhaled Oxygen Concentration - - Weight 144.6 kg (318 lb 12.8 oz) 01/02/2021 11:45 AM QUICK MIXER OPERATOR Height 182.9 cm (6') 01/02/2021 11:45 AM QUICK MIXER OPERATOR Body Mass Index 43.24 01/02/2021 11:45 AM QUICK MIXER OPERATOR documented in this encounter Discharge Instructions Discharge [...] sit still for 2 hours. ??? Call [facility] Heart Clinic as soon as you can Groin site: ??? If you start bleeding from the site in your groin, lie down flat and press firmly on the site for 10 minutes. ??? Once bleeding stops, lay flat for 2 hours. ??? Call [facility] Heart Clinic as soon as you can. [...] ??? January 30 at 1:30 pm with Tanya LUO, Nataliya Call the clinic if: ??? You have [...] The irregular beats should occur less often. [facility] Clinc: [phone] ( 8am-5pm M-F) Alecia Vega [phone] option 2 (7 days a week) chemical economist Accounting Manager Assistant Controller K MIXER OPERATOR documented in this encounter Medications at Time of Discharge Medication Sig Dispensed Refills Start Date End Date hydrOXYzine (ATARAX) 25 Take 1-2 tablets 60 tablet 1 2018 MG tabletIndications: (25-50 mg) by mouth Generalized anxiety every 4 hours as disorder needed for anxiety Multiple Take 1 tablet by 0 Vitamins-Minerals (RALF mouth daily MULTI MEN PO) [place]-3 Fatty Acids (FISH Take 1 capsule by [...] and mother. Additional education/resources provided: yes Patient/patient credit resolution representative verbalizes understanding: Yes Discharge Plans: Discharge location: Care Suites to home. Discharge ride contacted: Yes Approximate discharge time: 1900 Discharge Criteria: Discharge criteria met and vital signs stable: VSS, NSR, ambulated, voided taking po liquids. 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 Successful ablation. No complications. May be discharged around 6-7pm. Carl Owens RN - 01/02/2021 12:17 PM CST Care [...] Planning Discharge name/phone number: Aline Zhang - [phone] Overnight post sedation caregiver: Aline Ramírez [phone] Discharge location: home Carl Pacheco RN PATIENT/VISITOR [...] No Fatigue? No Vomiting or diarrhea? No K MIXER OPERATOR documented in this encounter Miscellaneous Notes Pre-Procedure [...] data, medications, and the plan for sedation K MIXER OPERATOR documented in this encounter Plan of Treatment Upcoming Encounters Date Type Specialty Care Team Description 11/04/2022 Office Visit Internal Medicine Liliam Marcy Griffin, CLAUDIO MELTER SUPERVISOR [address] [place], [place] [address] (Wo rk) documented as of this encounter Procedures Procedure Name Priority Date/Time Associated Diagnosis Comme nts EKG 12-LEAD, Routine 01/02/2021 3:12 PM Results f or this TRACING ONLY QUICK MIXER OPERATOR procedure are i n the results section. EP ABLATION Routine 01/02/2021 2:06 PM Palpitations Results f or this QUICK MIXER OPERATOR procedure are i n the results section. BASIC METABOLIC STAT 01/02/2021 12:00 Palpitations Results for this PANEL PM QUICK MIXER OPERATOR procedure are i n the results section. CBC WITH PLATELETS STAT 01/02/2021 12:00 Palpitations Resul ts for this PM QUICK MIXER OPERATOR procedure are i n the results section. EKG 12-LEAD, STAT 01/02/2021 11:51 Results for this TRACING ONLY AM QUICK MIXER OPERATOR procedure are i n the results section. documented in this encounter Results EKG 12-lead, tracing only (01/02/2021 3:12 PM QUICK MIXER OPERATOR) [facility] gist Method Time Signature Interpretation ECG Click View RADIOLOGY Image link RESULTS to view waveform and result Specimen (Source) Anatomical Collection Method Collection Time Re ceived Time Location / / Volume Laterality 01/02/2021 3:12 PM QUICK MIXER OPERATOR Sanchez Darby MD ECG ORDERABLES Performing Organization Address City/State/ZIP Code Phon e Number RADIOLOGY RESULTS EP ABLATION SVT (01/02/2021 2:06 PM QUICK MIXER OPERATOR) Anatomical Region Laterality Modality Radio Fluoroscopy Specimen (Source) Anatomical Location Collection Method / Collectio n Time Received Time / Laterality Volume Narrative 01/02/2021 2:35 PM QUICK MIXER OPERATOR PROCEDURES PERFORMED: 1. Conscious sedation. 2. Comprehensive [...] The patient was in sinus rhythm at [facility]. The AH and HV intervals [...] catheter was inserted. The ablation catheter was [email or web address] with 4 mm tip. The sagar ing [...] LES CBC with platelets (01/02/2021 12:00 PM QUICK MIXER OPERATOR) athologist Signature WBC 6.6 4.0 - 11.0 01/02/2021 [facility] 10e9/L 12:[address] [facility] RBC Count 4.94 4.4 - 5.9 01/02/2021 [facility] 10e12/L 12:[address] [facility] Hemoglobin 15.5 13.3 - 01/02/2021 [facility] 17.7 g/dL 12:[address] [facility] Hematocrit 47.3 40.0 - 01/02/2021 [facility] 53.0 % 12:[address] [facility] MCV 96 78 - 100 01/02/2021 [facility] fl 12:[address] [facility] MCH 31.4 26.5 - 01/02/2021 [facility] 33.0 pg 12:[address] [facility] MCHC 32.8 31.5 - 01/02/2021 [facility] 36.5 g/dL 12:[address] [facility] RDW 12.7 10.0 - 01/02/2021 [facility] 15.0 % 12:[address] [facility] Platelet Count 191 150 - 450 01/02/2021 [facility] 10e9/L 12:[address] [facility] Specimen Anatomical Collection Method Collection Time Receive d Time (Source) Location / / Volume Laterality Blood specimen 01/02/2021 12:00 (specimen) PM QUICK MIXER OPERATOR 12:11 PM QUICK MIXER OPERATOR Accounting Manager Assistant Controller Invasive LAB - BLOOD ORDERABLES Performing Organization Address City/State/ZIP Code Phon e Number M [facility] [address] [address] [phone] [facility] [address] [place] [address], [place] [phone] Basic metabolic panel (01/02/2021 12:00 PM [facility]) athologist Signature Sodium 141 133 - 144 01/02/2021 [facility] mmol/L 12:[address] [facility] Potassium 3.8 3.4 - 5.3 01/02/2021 [facility] mmol/L 12:[address] [facility] Chloride 107 94 - 109 01/02/2021 [facility] mmol/L 12:[address] [facility] Carbon Dioxide 29 20 - 32 01/02/2021 [facility] mmol/L 12:[address] [facility] Anion Gap 5 3 - 14 01/02/2021 [facility] mmol/L 12:[address] [facility] Glucose 92 70 - 99 01/02/2021 [facility] mg/dL 12:[address] [facility] Urea Nitrogen 15 7 - 30 01/02/2021 [facility] mg/dL 12:[address] [facility] Creatinine 1.12 0.66 - 01/02/2021 [facility] 1.25 mg/dL 12:[address] [facility] GFR Estimate >90 >60 01/02/2021 [facility] mL/min/{1. 12:50 PM [facility] 73_m2} [facility] Comment: Non GFR Calc Starting 10/17/2018, serum creatinine ba sed estimated GFR (eGFR) will be calculated using the Chronic Kidney Dise [facility] Epidemiology Collaboration (CKD-EPI) equation. GFR Estimate If >90 >60 mL/min/{1.73_m2} 01/02/2021 12:50 PM [facility] Comment: GFR Calc Starting 10/17/2018, serum creatinine ba sed estimated GFR (eGFR) will be calculated using the Chronic Kidney Dise [facility] Epidemiology Collaboration (CKD-EPI) equation. Calcium 9.1 8.5 - 10.1 mg/dL 01/02/2021 12:50 PM [facility] Specimen Anatomical Collection Method Collection Time Receive d Time (Source) Location / / Volume Laterality Blood specimen 01/02/2021 12:00 (specimen) PM QUICK MIXER OPERATOR 12:11 PM QUICK MIXER OPERATOR Accounting Manager Assistant Controller Invasive LAB - BLOOD ORDERABLES Performing Organization Address City/State/ZIP Code Phon e Number [facility] [address] [address] [facility] [address] [address], [place] [phone] EKG 12-lead, tracing only (01/02/2021 11:51 AM QUICK MIXER OPERATOR) [facility] gist Method Time Signature Interpretation ECG Click View RADIOLOGY Image link RESULTS to view waveform and result Specimen (Source) Anatomical Collection Method Collection Time Re ceived Time Location / / Volume Laterality 01/02/2021 11:51 AM QUICK MIXER OPERATOR Accounting Manager Assistant Controller Invasive MD ECG ORDERABLES Performing Organization Address City/State/ZIP [...] MAR Action Action Date Dose Rate Site naloxone (NARCAN) injection 0.2 mg 0.2 mg, [...] Recently Administered Medications Times are shown in QUICK MIXER OPERATOR. PRN Medication Order 12/31/2020 01/01/2021 01/02/2021 fentaNYL [...] Kathy Gross RN)1355 (Restarted - Provider: Kathy Gross RN)1406 (Stopped - Provider: Kathy Gross RN) CONTINUOUS [...] Kathy Gross RN)1352 (Given - Provider: Kathy Gross, NICOLA)1405 (Given - Provider: Kathy Gross RN) Administer [...] documented as of this encounter Care Teams Training Consultant Relationship Specialty Start Date End Date Annalisa Silva, RACE STARTER PCP - General Nurse Practitioner - Adult 04/11/19 [address] [place] [address] Marcy Ricketts, Assigned PCP 10/05/20 01/03/21 TECHNICAL ADJUSTER MELTER SUPERVISOR [address] [place] [address] documented as of this encounter
--- OUTSIDE RECORDS SUMMARY | 2022-09-26 20:22 | XMS_ITS | Encounter Summary ---
:1995 Author Organization [facility] Address Replaced by [facility] [place] [address] Care Team Providers Name Role Phone Annalisa Silva HOGSHEAD INSPECTOR Primary Care Provider [phone] Annalisa Silva NP Unavailable Vivian Darby MD Unavailable Encounter Details Date Type Department Care Team Description 02/25/2021 Travel Social History Tobacco Use Types Packs/Day [...] been in contact with No / Unsure 02/25/2021 3:35 PM CDT someone who was confirmed or suspected to have Coronavirus / COVID-19? documented as of this encounter Plan of Treatment Upcoming Encounters Date Type Specialty Care Team Description 11/04/2022 Office Visit Internal Medicine Marcy Ricketts APRN HR ADMINISTRATOR [address] [place], [place] [address] (Wo rk) documented as of this encounter Visit Diagnoses Not on filedocumented in this encounter Additional Health Concerns Assessment Noted Time PHQ-9 Depression Total Score: 16 04/18/2019 11:20 AM C DT documented as of this encounter Care Teams Rehab Aid Relationship Specialty Start Date End Date Annalisa Silva PCP - General Nurse Practitioner - 04/11/19 [facility] [address] [place], [place] [phone] Annalisa Silva Assigned PCP 01/04/21 BETTY Yousif [address] [place], [place] [address] Vivian Darby MD Assigned Heart and 01/04/21 04/11/21 [address] [place] Vascular Provider [address] [place] [address] documented as of this encounter
--- OUTSIDE RECORDS SUMMARY | 2022-09-26 20:22 | XMS_ITS | Encounter Summary ---
:1995 Author Organization [place] Address [address] [place] [address] Care Team Providers Name Role Phone Annalisa Silva NP Primary Care Provider [phone] Annalisa Silva NP Unavailable Vivian Darby MD Unavailable Reason for Visit Reason Onset Date Comments post procedure phone call 01/05/2021 Encounter Details Date Type Department Care Team Description 01/05/2021 Telephone [facility] Heart Stacia Brewster RN post procedure phone Clinic [facility] call [address] [facility] [address] [place] [address] Social History Tobacco Use Types [...] or more drinks on one occasion? 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 documented as of this encounter Miscellaneous Notes Telephone Encounter - Silvia Barahona RN - 01/08/2021 8:52 AM CST Pt called and states the he has bruising on his groin site and it is sore. Pt states that bruising is running horizontal of his incision towards his inner leg. Pt states that it is not painful to walk and was slightly swollen. 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 Pt SVT Ablation was on Tuesday. Have asked that pt continue to monitor and if does go to work today and begins to have any issues with increased pain or bruising to please call A Fib nurse line in the case that an US is needed. Pt states understanding. Pt will be off on Tuesday-Tuesday. Pt also states that he may need a return to work letter because of only working 1/2 a day yesterday. . JNelsonRN L TANKER TRUCK DRIVER Telephone Encounter - Stacia Brewster RN - 01/05/2021 1:36 PM CST 01/05/21 Spoke with pt who states he is feeling good and has no complaints. Groin dsg has been removed and site is healing with no redness, lump or bruise. He has no c/o pain . He stated he spoke w Dr Darby on Tuesday who stated pt can return to work today, therefore pt stated he will contact the [facility] and cancel leave request. Pt reminded of f/u appt and that he has Af[facility] RN phone # for questions/issues . Pt has no further questions at this time. KHerroRN 140 pm L TANKER TRUCK DRIVER Telephone Encounter - Stacia Brewster RN - 01/05/2021 10:24 AM CST 01/05/21 Attempted to talk w pt post SVT ablation done on 01/02. Called pt, reached VM, LM and requested callback KHerroRN 1025 am L TANKER TRUCK DRIVER documented in this encounter Plan of Treatment Upcoming Encounters Date Type Specialty Care Team Description 11/04/2022 Office Visit Internal Medicine Marcy Ricketts APRN AUTOMOBILE MECHANIC HELPER [address] [place], [place] [address] (Wo rk) documented as of this encounter Visit Diagnoses Not on filedocumented in this encounter Additional Health Concerns Assessment Noted Time PHQ-9 Depression Total Score: 16 04/18/2019 11:20 AM C DT documented as of this encounter Care Teams Seismograph Computer Relationship Specialty Start Date End Date Annalisa Silva PCP - General Nurse Practitioner - 04/11/19 [facility] [address] [place], [place] [address] Annalisa Silva Assigned PCP 01/04/21 BETTY Yousif [address] [place], [place] [address] Vivian Darby MD Assigned Heart and 01/04/21 04/11/21 [address] Vascular Provider [address] [place] [address] documented as of this encounter
--- OUTSIDE RECORDS SUMMARY | 2022-09-26 20:22 | XMS_ITS | Encounter Summary ---
:1995 Author Organization [place] Address [facility] [place] [address] Care Team Providers Name Role Phone Annalisa Silva DOOR MACHINE OPERATOR Primary Care Provider [phone] Annalisa Silva DOOR MACHINE OPERATOR Unavailable Tanya Lentz APRN DIRECTOR OF MEDICAL REVIEW Unavailable + Encounter Details Date Type Department Care Team Description 05/28/2021 Travel Social History Tobacco Use Types Packs/Day [...] Visit Internal Medicine Marcy Ricketts APRN DIRECTOR OF MEDICAL REVIEW [address] [place], [place] [address] (Wo rk) documented as of this encounter Visit Diagnoses Not on filedocumented in this encounter Additional Health Concerns Assessment Noted Time PHQ-9 Depression Total Score: 7 05/28/2021 6:06 PM CDT documented as of this encounter Care Teams System Architect Relationship Specialty Start Date End Date Annalisa Silva, PCP - General Nurse Practitioner - 04/11/19 DOOR MACHINE OPERATOR [facility] [address] [place], [place] [address] Annalisa Silva, Assigned PCP 01/04/21 DOOR MACHINE OPERATOR [address] [place], [place] [address] Tanya Lentz Assigned Heart and 04/12/21 CLAUDIO Mclain DIRECTOR OF MEDICAL REVIEW Vascular Provider [address] [place] [address] documented as of this encounter
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
--- OUTSIDE RECORDS SUMMARY | 2022-09-26 20:22 | XMS_ITS | Encounter Summary ---
:1995 Author Organization [place] Address [address] [place] [address] Care Team Providers Name Role Phone Annalisa Silva PATTERN KEEPER Primary Care Provider [phone] Annalisa Silva PATTERN KEEPER Unavailable Tanya Lentz APRN NEEDLEWORKER Unavailable + Reason for Visit Reason Comments Cough Entered automatically based on patient selection in [facility]. Encounter Details Date Type Department Care Team Description 02/11/2022 E-Visit [facility] Annalisa Silva Cough (E ntered Clinic Meghan Yousif NP automatically based on [address] [place] [address] [place] [place] [address] [place], [place] [phone] (Wo rk) [address] [phone] Social History Tobacco Use Types Packs/Day Years [...] Date Recorded Male 07/12/2020 3:49 AM CDT documented as of this encounter Miscellaneous Notes Telephone Encounter - Annalisa Silva, BETTY - 02/11/2022 1:40 PM CDT Provider E-Visit time total (minutes): 8 documented in this encounter Plan of Treatment Upcoming Encounters Date Type Specialty Care Team Description 11/04/2022 Office Visit Internal Medicine Marcy Ricketts APRN NEEDLEWORKER [address] [place], [place] [address] (Wo rk) documented as of this encounter Visit Diagnoses Diagnosis Sinusitis, unspecified chronicity, unspe cified location - Primary documented in this encounter Additional Health Concerns Assessment Noted Time PHQ-9 Depression Total Score: 7 05/28/2021 6:06 PM CDT documented as of this encounter Care Teams Machine Filler Relationship Specialty Start Date End Date Annalisa Silva, PCP - General Nurse Practitioner - 04/11/19 PATTERN KEEPER [facility] [address] [facility] [place] [address] Annalisa Silva, Assigned PCP 01/04/21 PATTERN KEEPER [address] [place] [address] Tanya Lentz Assigned Heart and 04/12/21 CLAUDIO Mclain NEEDLEWORKER Vascular Provider [address] [place] [address] documented as of this encounter
--- OUTSIDE RECORDS SUMMARY | 2022-09-26 20:22 | XMS_ITS | Encounter Summary ---
:1995 Author Organization [place] Address [address] 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 documented as of this encounter Miscellaneous Notes Telephone Encounter - Stacia Brewster RN - 01/01/2021 10:21 AM CST 01/01/21 Attempted to call pt but reached VM. MORSE and requested callback. BobbyoRN 1020 am Addendum 1115 am Called pt regarding SVT Ablation tomorrow. Notified of arrival time ( 11 am) , NPO after midnight with sips of water for am meds. Discussed meds to be held ( OTC vitamins) and that patient will need a haulpak driver for ride home. Informed pt that COVID test was negative. Wellness Screening Tool Symptom Screening: Do you have one of the following NEW symptoms: ? ? Fever (subjective or >100.0)? No ??? New cough? No ??? Shortness of breath? No ??? Chills? No ??? New loss of taste or smell? No ??? Generalized body aches? No ??? New persistent headache? No ??? New sore throat? No ??? Nausea, vomiting or diarrhea? No Within the past 2 weeks, have you been exposed to someone with a known positive illness below? COVID - 19 (known or suspected) No ??? Chicken pox? No ??? Measles? No ??? Pertussis? No Have you had a positive COVID-19 diagnostic test (nasal swab test) in the last 14 days or are you currently on self-quarantine restrictions (i.e.travel restriction, exposure, etc?) No Pt had positive COVID test back in August 2020. Patient notified of visitor restriction: Yes Patient informed to wear a mask: Yes Patient's appointment status: pt will proceed with SVT Ablation as scheduled for tomorrow . Pt voiced understanding and agreement with plan. BobbyoRN 1123 am AND FIXTURE REPAIRER documented in this encounter Plan of Treatment Upcoming Encounters Date Type Specialty Care Team Description 11/04/2022 Office Visit Internal Medicine Marcy Ricketts APRN SEGMENT BLOCK LAYER [address] [place], [place] [address] (Wo rk) documented as of this encounter Visit Diagnoses Not on filedocumented in this encounter Additional Health Concerns Assessment Noted Time PHQ-9 Depression Total Score: 16 04/18/2019 11:20 AM C DT documented as of this encounter Care Teams Auricular Detoxification Specialist Relationship Specialty Start Date End Date Annalisa Silva, TECHNICAL FELLOW PCP - General Nurse Practitioner - Adult 04/11/19 [address] [place] [address] Marcy Ricketts, Assigned PCP 10/05/20 01/03/21 ROOF CEMENT AND PAINT MAKER SEGMENT BLOCK LAYER [address] [place] [address] documented as of this encounter
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
--- OUTSIDE RECORDS SUMMARY | 2022-09-26 20:23 | XMS_ITS | Encounter Summary ---
:1995 Author Organization [place] Address [facility] [facility] [place] [address] Care Team Providers Name Role Phone Annalisa Silva KINESIOTHERAPIST Unavailable Annalisa Silva KINESIOTHERAPIST Primary Care Provider [phone] Encounter Details Date Type Department Care Team Description 09/06/2020 Travel Social History Tobacco Use Types Packs/Day [...] month, have you been in contact with Yes 09/06/2020 8:30 PM COT ASSEMBLER someone who was confirmed or suspected to have Coronavirus / COVID-19? documented as of this encounter Plan of Treatment Upcoming Encounters Date Type Specialty Care Team Description 11/04/2022 Office Visit Internal Medicine Marcy Ricketts APRN EXTRUDING PRESS ADJUSTER [address] [place], [place] [address] (Wo rk) documented as of this encounter Visit Diagnoses Not on filedocumented in this encounter Additional Health Concerns Assessment Noted Time PHQ-9 Depression Total Score: 16 04/18/2019 11:20 AM C DT documented as of this encounter Care Teams Transitional Care Liaison Relationship Specialty Start Date End Date Annalisa Silva NP PCP - General Nurse Practitioner - Adult 04/11/19 [address] [place], [place] [phone] Annalisa Silva NP Assigned PCP 11/26/18 10/04/20 [address] [place] [address] documented as of this encounter
--- OUTSIDE RECORDS SUMMARY | 2022-09-26 20:23 | XMS_ITS | Encounter Summary ---
:1995 Author Organization [place] Address [facility] [place] [address] Care Team Providers Name Role Phone Annalisa Silva SENIOR INSPECTOR Unavailable Annalisa Silva SENIOR INSPECTOR Primary Care Provider [phone] Encounter Details Date Type Department Care Team Description 07/09/2019 Travel Social History Tobacco Use Types Packs/Day Years Used Date Smoking Tobacco: Never Smokeless Tobacco: Never Comments: dad smokes outside Alcohol Use Standard Drinks/Week Comments Yes 0 [...] AM CDT documented as of this encounter Plan of Treatment Upcoming Encounters Date Type Specialty Care Team Description 11/04/2022 Office Visit Internal Medicine Marcy Ricketts APRN BEVELING MACHINE OPERATOR [address] [place], [place] [address] (Wo rk) documented as of this encounter Visit Diagnoses Not on filedocumented in this encounter Additional Health Concerns Assessment Noted Time PHQ-9 Depression Total Score: 16 04/18/2019 11:20 AM C DT documented as of this encounter Care Teams Log Scaler Relationship Specialty Start Date End Date Annalisa Silva NP PCP - General Nurse Practitioner - Adult 04/11/19 [address] [place], [place] [address] Annalisa Silva, BETTY Assigned PCP 11/26/18 10/04/20 [address] [place], [place] [phone] documented as of this encounter
--- OUTSIDE RECORDS SUMMARY | 2022-09-26 20:23 | XMS_ITS | Encounter Summary ---
:1995 Author Organization [place] Address [address] [place] [address] Care Team Providers Name Role Phone Annalisa Silva WELDING OPERATOR Primary Care Provider [phone] Marcy Ricketts APRN AQUATIC DIRECTOR Unavailable [phone] Reason for Referral CV Testing (Routine) - Closed Specialty Diagnoses / Procedures Referred By Contact Refer red To Contact Cardiology Diagnoses Palpitations Robb Ellison MD Rh Cv Cardiac Svc [facility] Procedures Leadless concrete block layer 3 to 7 Days ZZHC EXT ECG > 48HR TO 21 DAY RCRD W/CONECT INTL RCRD ZZC EXT ECG > 48HR TO 21 DAY REVIEW AND INTERPRETATN AL EXT ECG > 48HR TO 21 DAY RCRD W/CONECT INTL [place] [facility] [address] [place] EXT ECG > 48HR TO 21 DAY REVIEW AND INTERPRETATN HC EXT ECG > 48HR TO 21 DAY RCRD W/CONECT INTL RCRD [address] [facility] [address] [place], [place] [address] [address] [place] [address] Phone: Fax: Referral ID Status Reason Start Date Expiration Date Visits Requ ested Visits Authorized [id number] Closed 12/02/2020 12/02/2021 1 1 ING SUPERVISOR Reason for Visit Reason Comments Dizziness Encounter Details Date Type Department Care Team Description 12/02/2020 Emergency [facility], Robb Esquivel joshua, Near syncope; Emergency Dept Dizziness; Eric Ramos [facility] [place] [phone] [phone] [place], [place] [address] (Wo rk) Social History Tobacco Use Types Packs/Day Years [...] been in contact with No / Unsure 12/02/2020 5:33 PM FITTING SUPERVISOR someone who was confirmed or suspected to have Coronavirus / COVID-19? documented as of this encounter Last Filed Vital Signs Vital Sign Reading Time Taken Comments Blood Pressure 130/70 12/02/2020 7:15 PM FITTING SUPERVISOR Pulse 81 12/02/2020 7:15 PM FITTING SUPERVISOR Temperature 36.7 ??C (98 ??F) 12/02/2020 5:34 PM FITTING SUPERVISOR Respiratory Rate 18 12/02/2020 5:34 PM FITTING SUPERVISOR Oxygen Saturation 98% 12/02/2020 7:15 PM FITTING SUPERVISOR Inhaled Oxygen Concentration - - Weight 145.5 kg (320 lb 12.3 oz) 12/02/2020 5:34 PM FITTING SUPERVISOR Height - - Body Mass Index 41.18 07/09/2019 2:28 PM CDT documented in this encounter Discharge Instructions AttachmentsThe following attachments cannot be sent through Care Everywhere. Near-Fainting, Uncertain Cause (Algerian)Dizziness, Uncertain Cause (Algerian) Palpitations (Algerian)documented in this encounter Medications at Time of Discharge Medication Sig Dispensed Refills Start Date End Date hydrOXYzine (ATARAX) 25 Take 1-2 tablets 60 tablet 1 2018 MG tabletIndications: (25-50 mg) by mouth Generalized anxiety every 4 hours as disorder needed for anxiety Multiple Take 1 tablet by 0 Vitamins-Minerals (RALF mouth daily MULTI MEN PO) [place]-3 Fatty Acids Take 1 capsule by 0 (FISH OIL OMEGA-3 PO) mouth daily traZODone (DESYREL) 50 One or two at night 60 tablet 1 03/31 MG tabletIndications: as needed Generalized anxiety disorder busPIRone (BUSPAR) 10 MG Take 1 tablet (10 60 tablet 1 03/3105/28/2021 tabletIndications: mg) by mouth 2 times Generalized anxiety daily disorder predniSONE (DELTASONE) Take two tablets (= 10 tablet 0 04/202012/29/2020 20 MG tablet 40mg) each day for 5 (five) days venlafaxine (EFFEXOR-XR) Take 1 capsule (150 30 capsule 1 12/29/2020 150 MG 24 hr mg) by mouth daily capsuleIndications: Generalized anxiety disorder documented as of this encounter ED Notes Belinda Barnes RN - 12/02/2020 5:32 PM CST Pt reports working with psychiatrist. Pt was taking Lexapro 20 mg and reports it was not working. Pt tapered down for 1 week 10mg and has not taken any for the past week. Pt reports Brain zapping, dizziness, shaking, severe anxiety, and concerns with falling over. ABC in tact. A/OX4 ING SUPERVISOR Robb Ellison MD - 12/02/2020 5:29 PM CST History Chief Complaint: Dizziness The history is provided by the patient. Seamus Barnes is a 25 year old male with history of anxiety, PTSD who presents with dizziness. The patient reports while he was at work this afternoon, he felt dizzy and felt as though he was losing his coordination. Symptoms have worsened within the past week, with episodes everyday and multiple times a day. He has been experiencing a vertigo sensation lasting for a second, and he describes it as electricity going through his body with associated anxiety and tremors. He denies fever, chills,chest pain, shortness of breath, loss of vision, palpations. He also denies weakness or speech disturbances. He mentions that he recently was tapered off Lexapro and is no longer taking it. Currently, he is on Buspar and notes a jolt sensation after taking this medication. Review of Systems Constitutional: Negative for fever. Eyes: Negative for visual disturbance. Respiratory: Negative for chest tightness and shortness of breath. Cardiovascular: Positive for palpitations. Negative for chest pain. Gastrointestinal: Negative for abdominal pain. Neurological: Positive for dizziness, tremors and light-headedness. Negative for syncope and headaches. All other systems reviewed and are negative. 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 The patient drinks alcohol once in a while. Physical Exam Patient Vitals for the past 24 hrs: BP Temp Temp src Pulse Resp SpO2 Weight 12/02/20 1915 130/70 -- -- 81 -- 98 % -- 12/02/20 1900 (!) 146/101 -- -- 90 -- 97 % -- 12/02/20 1734 (!) 169/99 98 ??F (36.7 ??C) Temporal 85 18 99 % 145.5 kg (320 lb 12.3 oz) Physical Exam General: Alert, no acute distress Neuro: Alert and oriented x 3. Speech is normal and fluent. Face is symmetric without droop. CN's II-XII grossly intact. Negative pronator drift. Finger to nosesymmetric and grossly normal bilaterally. Right Arm: Good cd reactor operator strength. 5/5 elbow flexion. 5/5 elbow extension. Sensation intact to light touch. Left Arm: Good cd reactor operator strength. 5/5 elbow flexion. 5/5 elbow extension. Sensation intact to light touch. Right Le/5 straight leg raise, 5/5 ankle dorsiflexion, 5/5 ankle plantar flexion. Sensation intact to light touch. Left Le/5 straight leg raise, 5/5 ankle dorsiflexion, 5/5 ankle plantar flexion. Sensation intact to light touch. Romberg and gait: Normal HEENT: Moist mucous membranes. Posterior oropharynx clear, no exudates. Conjunctiva normal. CV: RRR, no m/r/g, skin warm and well perfused Pulm: CTAB, no wheezes/ronchi/rales. No acute distress, breathing comfortably GI: Soft, nontender, nondistended. No rebound or guarding. Normal bowel sounds MSK: Moving all extremities. No focal areas of edema, erythema, or tenderness Skin: WWP, no rashes, no lower extremity edema, skin color normal, no diaphoresis Psych: Well-appearing, normal affect, regular speech Emergency Department Course ECG: ECG taken at 1838, ECG read at 1841 Normal sinus rhythm Normal ECG No significant change when compared to EKG dated 02/20/13. Rate 60 bpm. AL interval 168 ms. QRS duration 92 ms. QT/QTc 388/388 ms. P-R-T axes 22 35 32. Imaging: Leadless concrete block layer 3 to 7 Days (Results Pending) Laboratory: CBC: WBC 6.2, HGB 15.5, PLT 219 CMP: Glucose 110 (H), ALT 90(H), AST 49(H), Creatinine 1.11 o/w WNL Emergency Department Course: Reviewed: I reviewed nursing notes, vitals and past medical history Assessments: 1809 I obtained history and examined the patient as noted above. 1925 I rechecked the patient and explained findings. Disposition: The patient was discharged to home. Impression & Plan Medical Decision Making: Seamus Barnes is a 25 year old male with history of anxiety, PTSD presents to the ER for evaluation of near syncope, lightheadedness/dizziness that has been intermittent for the last 1-2 weeks. Please see above for details of HPI and exam. Of note, patient reports tapering off of Lexapro and is still currently taking BuSpar and trazodone. Denies any actual loss of consciousness but does report palpitations intermittently. Broad differentials considered include but is not limited to orthostatic hypotension, cardiac dysrhythmia, severe electrolyte disturbance, anemia, medication reaction, anxiety amongst other things. He is afebrile and vitally stable. Neurologic exam is normal and nonfocal. Doubt stroke/TIA, intracranial mass, central etiology for his dizziness that requires advanced imaging.Symptoms do not as well suggest peripheral vertigo. EKG shows sinus rhythm without any acute ST change concerning for acute ischemia or infarct. No evidence of delta wave, prolonged QTC, Brugada, HOCM.Basic lab studies are unremarkable. He denies chest pain and I doubt ACS or other life-threatening acute cardiopulmonary process causing his symptoms. He had no evidence of orthostatic hypotension in the ER. Unclear cause for patient's symptomatology today, but I do not find any life-threatening or sinister etiology at this time. Patient understands the uncertainty of the diagnosis and that certain pathologies can take time to declare itself. Given reassuring work-up thus far, with reasonable clinical certainty I feel that the patient is safe to discharge home. Certainly anxiety versus medication reaction may be cause for his symptoms. Given his palpitations, outpatient Zio patch was ordered and patient agrees with this. He will follow-up closely with his psychiatrist regarding today's visit and to review his medications. I discussed the signs symptoms that should prompt her to return the ER. All questions were answered prior to discharge. Diagnosis: ICD-10-CM 1. Near syncope R55 CBC + differential Comprehensive metabolic panel 2. Dizziness R42 3. Palpitations R00.2 Leadless concrete block layer 3 to 7 Days Scribe Disclosure: I, David Rawls, am serving as a scribe at 6:15 PM on 12/02/2020 to document services personally performed by Robb Ellison MD based on my observations and the provider's statements to me. Robb Ellison MD 12/03/20 0018 ING SUPERVISOR documented in this encounter Plan of Treatment Upcoming Encounters Date Type Specialty Care Team Description 11/04/2022 Office Visit Internal Medicine Marcy iRcketts APRN AQUATIC DIRECTOR [address] [place], [place] [address] (Wo rk) documented as of this encounter Procedures Procedure Name Priority Date/Time Associated Comments Diagnosis CBC WITH PLATELETS & STAT 12/02/2020 6:43 PM Near syncope R esults for this DIFFERENTIAL FITTING SUPERVISOR procedure are i n the results section. COMPREHENSIVE STAT 12/02/2020 6:43 PM Near syncope Results for this METABOLIC PANEL FITTING SUPERVISOR procedure ar e in the results section. EKG 12-LEAD, TRACING STAT 12/02/2020 6:38 PM R esults for this ONLY [facility] procedure are i n the results section. documented in this encounter Results LEADLESS WARD ASSISTANT APPLICATION AND INTERPRETATION 3 TO 7 DAY (12/04/2020 10:36 AM [facility]) Anatomical Region Laterality Modality Other Specimen (Source) Anatomical Location Collection Method / Collectio n Time Received Time / Laterality Volume Narrative This result has an attachment that is no t available. Robb Ellison MD CV CARDIAC SERVICES ORDERABL ES (ABNORMAL) Comprehensive metabolic panel (12/02/2020 6:43 PM [facility]) athologist Signature Sodium 140 133 - 144 12/02/2020 [facility] mmol/L 7:[address] [facility] Potassium 4.0 3.4 - 5.3 12/02/2020 [facility] mmol/L 7:[address] [facility] Chloride 108 94 - 109 12/02/2020 [facility] mmol/L 7:[address] [facility] Carbon Dioxide 28 20 - 32 12/02/2020 [facility] mmol/L 7:[address] [facility] Anion Gap 4 3 - 14 12/02/2020 [facility] mmol/L 7:[address] [facility] Glucose 110 (H) 70 - 99 12/02/2020 [facility] mg/dL 7:[address] [facility] Urea Nitrogen 20 7 - 30 12/02/2020 [facility] mg/dL 7:[address] [facility] Creatinine 1.11 0.66 - 12/02/2020 [facility] 1.25 mg/dL 7:[address] [facility] GFR Estimate >90 >60 12/02/2020 [facility] mL/min/{1. 7:08 PM [facility] 73_m2} HOSPITAL Comment: Non GFR Calc Starting 10/17/2018, serum creatinine ba sed estimated GFR (eGFR) will be calculated using the Chronic Kidney Dise [facility] Epidemiology Collaboration (CKD-EPI) equation. GFR Estimate If >90 >60 mL/min/{1.73_m2} 12/02/2020 7: 08 PM [facility] Comment: GFR Calc Starting 10/17/2018, serum creatinine ba sed estimated GFR (eGFR) will be calculated using the Chronic Kidney Dise [facility] Epidemiology Collaboration (CKD-EPI) equation. Calcium 8.9 8.5 - 10.1 12/02/2020 7:08 PM [facility] mg/dL [facility] Bilirubin Total 0.4 0.2 - 1.3 mg/dL 12/02/2020 7:10 PM [facility] Albumin 4.0 3.4 - 5.0 g/dL 12/02/2020 7:10 PM [facility] Protein Total 7.5 6.8 - 8.8 g/dL 12/02/2020 7:10 PM [facility] Alkaline Phosphatase 115 40 - 150 U/L 12/02/2020 7:10 PM [facility] ALT 90 (H) 0 - 70 U/L 12/02/2020 7:10 PM [facility] AST 49 (H) 0 - 45 U/L 12/02/2020 7:10 PM [facility] Specimen Anatomical Collection Method Collection Time Receive d Time (Source) Location / / Volume Laterality Blood specimen 12/02/2020 6:43 PM 021 6:48 (specimen) FITTING SUPERVISOR PM [facility] Robb Ellison MD LAB - BLOOD ORDERABLES Performing Organization Address City/State/ZIP Code Phon e Number M [address] [address] [facility] [address] [place], [place] [address] [facility] [phone] [address], [facility] CBC + differential (12/02/2020 6:43 PM [facility]) [facility] Method Time Signature WBC 6.2 4.0 - 12/02/2020 [facility] 11.0 6:54 PM [facility] 10e9/L [facility] RBC Count 4.78 4.4 - 5.9 12/02/2020 [facility] 10e12/L 6:[address] [facility] Hemoglobin 15.5 13.3 - 12/02/2020 [facility] 17.7 g/dL 6:[address] [facility] Hematocrit 46.7 40.0 - 12/02/2020 [facility] 53.0 % 6:[address] [facility] MCV 98 78 - 100 12/02/2020 [facility] fl 6:[address] [facility] MCH 32.4 26.5 - 12/02/2020 [facility] 33.0 pg 6:[address] [facility] MCHC 33.2 31.5 - 12/02/2020 [facility] 36.5 g/dL 6:[address] [facility] RDW 12.7 10.0 - 12/02/2020 [facility] 15.0 % 6:[address] [facility] Platelet Count 219 150 - 450 12/02/2020 [facility] 10e9/L 6:[address] [facility] Diff Method Automated 12/02/2020 [facility] Method 6:[address] [facility] % Neutrophils 52.1 % 12/02/2020 [facility] 6:[address] [facility] % Lymphocytes 38.4 % 12/02/2020 [facility] 6:[address] [facility] % Monocytes 7.3 % 12/02/2020 [facility] 6:[address] [facility] % Eosinophils 1.6 % 12/02/2020 [facility] 6:[address] [facility] % Basophils 0.3 % 12/02/2020 [facility] 6:[address] [facility] % Immature 0.3 % 12/02/2020 [facility] Granulocytes 6:[address] [facility] Nucleated RBCs 0 0 /100 12/02/2020 [facility] 6:[address] [facility] Absolute 3.2 1.6 - 8.3 12/02/2020 [facility] Neutrophil 10e9/L 6:[address] [facility] Absolute 2.4 0.8 - 5.3 12/02/2020 [facility] Lymphocytes 10e9/L 6:[address] [facility] Absolute 0.5 0.0 - 1.3 12/02/2020 [facility] Monocytes 10e9/L 6:[address] [facility] Absolute 0.1 0.0 - 0.7 12/02/2020 [facility] Eosinophils 10e9/L 6:[address] [facility] Absolute 0.0 0.0 - 0.2 12/02/2020 [facility] Basophils 10e9/L 6:[address] [facility] Abs Immature 0.0 0 - 0.4 12/02/2020 [facility] Granulocytes 10e9/L 6:[address] [facility] Absolute 0.0 12/02/2020 [facility] Nucleated RBC 6:[address] [facility] Specimen Anatomical Collection Method Collection Time Receive d Time (Source) Location / / Volume Laterality Blood specimen 12/02/2020 6:43 PM 021 6:48 (specimen) FITTING SUPERVISOR PM FITTING SUPERVISOR Robb Ellison MD LAB - BLOOD ORDERABLES Performing Organization Address City/[facility]/ZIP Code Phon e Number [facility] [address], [place] [address] [facility] [address] [place], [place] [address] [facility] [phone] EKG 12 lead (12/02/2020 6:38 PM FITTING SUPERVISOR) [facility] gist Method Time Signature Interpretation ECG Click View RADIOLOGY Image link RESULTS to view waveform and result Specimen (Source) Anatomical Collection Method Collection Time Re ceived Time Location / / Volume Laterality 12/02/2020 6:38 PM FITTING SUPERVISOR Robb Ellison MD ECG ORDERABLES Performing Organization Address City/State/ZIP [facility] Phon e Number RADIOLOGY RESULTS documented in this encounter Visit Diagnoses Diagnosis Near syncope Syncope and collapse Dizziness Dizziness and giddiness Palpitations documented in this encounter Additional Health Concerns Assessment Noted Time PHQ-9 Depression Total Score: 16 04/18/2019 11:20 AM C DT documented as of this encounter Care Teams Home Care Music Therapist Relationship Specialty Start Date End Date Annalisa Silva, BETTY PCP - General Nurse Practitioner - Adult 04/11/19 [address] [place] [address] Marcy Ricketts, Assigned PCP 10/05/20 01/03/21 APARTMENT COMMUNITY MANAGER AQUATIC DIRECTOR [address] [place] [address] documented as of this encounter
--- OUTSIDE RECORDS SUMMARY | 2022-09-26 20:23 | XMS_ITS | Encounter Summary ---
:1995 Author Organization [place] Address [facility] [place] [address] Care Team Providers Name Role Phone Annalisa Silva CLEANING LABORER Unavailable Annalisa Silva CLEANING LABORER Primary Care Provider [phone] Encounter Details Date Type Department Care Team Description 09/10/2020 Travel Social History Tobacco Use Types Packs/Day [...] been in contact with No / Unsure 09/10/2020 1:07 AM EMPLOYEE BENEFITS MANAGER someone who was confirmed or suspected to have Coronavirus / COVID-19? documented as of this encounter Plan of Treatment Upcoming Encounters Date Type Specialty Care Team Description 11/04/2022 Office Visit Internal Medicine Marcy Ricketts APRN MANUFACTURING ENGINEERING INTERN [address] [place], [place] [address] (Wo rk) documented as of this encounter Visit Diagnoses Not on filedocumented in this encounter Additional Health Concerns Assessment Noted Time PHQ-9 Depression Total Score: 16 04/18/2019 11:20 AM C DT documented as of this encounter Care Teams Bicycle Taxi Driver Relationship Specialty Start Date End Date Annalisa Silva NP PCP - General Nurse Practitioner - Adult 04/11/19 [address] [place], [place] [address] Annalisa Silva NP Assigned PCP 11/26/18 10/04/20 [address] [place] [address] documented as of this encounter
--- OUTSIDE RECORDS SUMMARY | 2022-09-26 20:23 | XMS_ITS | Encounter Summary ---
:1995 Author Organization [place] Address [facility] [place] [address] Care Team Providers Name Role Phone Annalisa Silva PLASTIC EYE TECHNICIAN Unavailable Annalisa Silva PLASTIC EYE TECHNICIAN Primary Care Provider [phone] Encounter Details Date Type Department Care Team Description 06/27/2019 Travel Social History Tobacco Use Types Packs/Day [...] Office Visit Internal Medicine Marcy Ricketts APRN DRIVEWAY ATTENDANT [address] [place], [place] [address] (Wo rk) documented as of this encounter Visit Diagnoses Not on filedocumented in this encounter Additional Health Concerns Assessment Noted Time PHQ-9 Depression Total Score: 16 04/18/2019 11:20 AM C DT documented as of this encounter Care Teams Electronic Gluer Relationship Specialty Start Date End Date Annalisa Silva NP PCP - General Nurse Practitioner - Adult 04/11/19 [address] [place], [place] [address] Annalisa Silva, BETTY Assigned PCP 11/26/18 10/04/20 [address] [place], [place] [address] documented as of this encounter
--- OUTSIDE RECORDS SUMMARY | 2022-09-26 20:23 | XMS_ITS | Encounter Summary ---
:1995 Author Organization [place] Address [facility] [place] [address] Care Team Providers Name Role Phone Annalisa Silva BEE RAISER Unavailable Annalisa Silva BEE RAISER Primary Care Provider [phone] Encounter Details Date Type Department Care Team Description 09/03/2020 Travel Social History Tobacco Use Types Packs/Day [...] have you been in contact with Yes 09/03/2020 10:00 AM HAND INSERTER OPERATOR someone who was confirmed or suspected to have Coronavirus / COVID-19? documented as of this encounter Plan of Treatment Upcoming Encounters Date Type Specialty Care Team Description 11/04/2022 Office Visit Internal Medicine Marcy Ricketts APRN DIRECTOR OF CORPORATE REAL ESTATE [address] [place], [place] [address] (Wo rk) documented as of this encounter Visit Diagnoses Not on filedocumented in this encounter Additional Health Concerns Assessment Noted Time PHQ-9 Depression Total Score: 16 04/18/2019 11:20 AM C DT documented as of this encounter Care Teams Car Icer Relationship Specialty Start Date End Date Annalisa Silva NP PCP - General Nurse Practitioner - Adult 04/11/19 [address] [place], [place] [address] Annalisa Silva NP Assigned PCP 11/26/18 10/04/20 [address] [place] [address] documented as of this encounter
--- OUTSIDE RECORDS SUMMARY | 2022-09-26 20:23 | XMS_ITS | Encounter Summary ---
:1995 Author Organization [place] Address [facility] [place] [address] Care Team Providers Name Role Phone Annalisa Silva HUMAN RESOURCES MANAGER Primary Care Provider [phone] Marcy Ricketts APRN CAE ENGINEER Unavailable [phone] Reason for Referral (Routine) - Closed Specialty Diagnoses / Procedures Referred By Contact Refer red To Contact Diagnoses Palpitations [facility] Procedures Case Request EP: EP Ablation SVT [address] [facility] [address] [place] [phone] Referral ID Status Reason Start Date Expiration Date Visits Requ ested Visits Authorized [id number] Closed 12/25/2020 12/25/2021 1 1 MODYNAMICS TEACHER Encounter Details Date Type Department Care Team Description 12/25/2020 Telephone [facility] Natalie Brewster RN [place] [address] [facility] [address] [place] [phone] Social History Tobacco Use Types Packs/Day [...] been in contact with No / Unsure 12/25/2020 1:17 PM THERMODYNAMICS TEACHER someone who was confirmed or suspected to have Coronavirus / COVID-19? documented as of this encounter Miscellaneous Notes Addendum Note - Trace Brewster RN - 12/25/2020 1:51 PM THERMODYNAMICS TEACHER Addended by: TRACE BREWSTER on: 12/25/2020 01:53 PM Modules accepted: Orders MODYNAMICS TEACHER documented in this encounter Plan of Treatment Upcoming Encounters Date Type Specialty Care Team Description 11/04/2022 Office Visit Internal Medicine Marcy Ricketts, WELL SERVICE FLOOR WORKER CAE ENGINEER [address] [place], [place] [address] (Wo rk) documented as of this encounter Visit Diagnoses Diagnosis Palpitations - Primary documented in this encounter Additional Health Concerns Assessment Noted Time PHQ-9 Depression Total Score: 16 04/18/2019 11:20 AM C DT documented as of this encounter Care Teams After School Program Coordinator Relationship Specialty Start Date End Date Annalisa Silva, BETTY PCP - General Nurse Practitioner - Adult 04/11/19 [address] [place] [address] Marcy Ricketts, Assigned PCP 10/05/20 01/03/21 WELL SERVICE FLOOR WORKER CAE ENGINEER [address] [place] [address] documented as of this encounter
--- OUTSIDE RECORDS SUMMARY | 2022-09-26 20:23 | XMS_ITS | Encounter Summary ---
:1995 Author Organization [place] Address [facility] [place] [address] Care Team Providers Name Role Phone Annalisa Silva APPLICATIONS CONSULTANT Unavailable Annalisa Silva APPLICATIONS CONSULTANT Primary Care Provider [phone] Encounter Details Date Type Department Care Team Description 07/04/2019 Travel Social History Tobacco Use Types Packs/Day [...] Office Visit Internal Medicine Marcy Ricketts APRN FIRER AUTOMATIC STOKER [address] [place], [place] [address] (Wo rk) documented as of this encounter Visit Diagnoses Not on filedocumented in this encounter Additional Health Concerns Assessment Noted Time PHQ-9 Depression Total Score: 16 04/18/2019 11:20 AM C DT documented as of this encounter Care Teams End Packer Relationship Specialty Start Date End Date Annalisa Silva NP PCP - General Nurse Practitioner - Adult 04/11/19 [address] [place], [place] [address] Annalisa Silva, BETTY Assigned PCP 11/26/18 10/04/[address] [place], [place] [address] documented as of this encounter
--- OUTSIDE RECORDS SUMMARY | 2022-09-26 20:23 | XMS_ITS | Encounter Summary ---
:1995 Author Organization [place] Address [facility] [place] [address] Care Team Providers Name Role Phone Annalisa Silva DIEING OUT MACHINE OPERATOR Unavailable Annalisa Silva DIEING OUT MACHINE OPERATOR Primary Care Provider [phone] Encounter Details Date Type Department Care Team Description 09/03/2020 Virtual Visit [facility] up Azalia Nunes [address] [place] [address] Robbin Dev[address] [place] [id number] [address] [place] [address] [phone] (Wo rk) Social History Tobacco Use Types [...] AM CDT documented as of this encounter Progress Notes Azalia Nunes PA-C - 09/03/2020 9:20 AM CST Date: 09/03/2020 09:12:40 Clinician: Azalia Nunes Clinician Patient: Seamus Barnes Patient : 1995 Patient Address: [address] [place] [address], [place] [address] Patient Visit Protocol: URI Patient Summary: Seamus is a 25 year old ( : 1995 ) male who initiated a [facility] Visit for COVID-19 (Coronavirus) evaluation and screening. When asked the question Please sign me up to receivenews, health information and promotions from [facility] Seamus responded No. Seamus states his symptoms started today. His symptoms consist of myalgia, chills, malaise, a sore throat, a headache, wheezing, a cough, and nasal congestion. Seamus also feels feverish but was unable to measure his temperature. Symptom details Nasal secretions: The color of his mucus is clear. Cough: Seamus coughs every 5-10 minutes and his cough is not more bothersome at night. Phlegm does not come into his throat when he coughs. He does not believe his cough is caused by post-nasal drip. Sore throat: Seamus reports having mild throat pain (1-3 on a 10 point pain scale), does not have exudate on his tonsils, and can swallow liquids. He is not sure if the lymph nodes in his neck are enlarged. A rash has not appeared on the skin since the sore throat started. Wheezing: Seamus has not ever been diagnosed with asthma. Additional wheezing details as reported by the patient (free text): It's very subtle, not much but it was there. I woke up with these symptomsabout 2 hours ago and haven't really done anything other than rest and fluids. Headache: He states the headache is moderate (4-6 on a 10 point pain scale). Seamus denies having vomiting, rhinitis, facial pain or pressure, teeth pain, ageusia, diarrhea, ear pain, nausea, and anosmia. He also denies taking antibiotic medication in the past month, having recent facial or sinus surgery in the past 60 days, and having a sinus infection within the past year. He is not experiencing dyspnea. Precipitating events Seamus is not sure if he has been exposed to someone with strep throat. He has not recently been exposed to someone with influenza. Seamus has not been in close contact with any high risk individuals. Pertinent COVID-19 (Coronavirus) information Seamus does not work or volunteer as healthcare worker or a mattress filling machine tender. In the past 14 days, Seamus has not worked or volunteered at a healthcare facility or group living setting. In the past 14 days, he also has not lived in a congregate living setting. Seamus has had a close contact with a laboratory-confirmed COVID-19 patient within 14 days of symptom onset. He was not exposed at his work. He does not know when he was exposed to the laboratory-confirmed COVID-19 patient. 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 We wore masks, brady and gloves but I did come into direct contact with her for a brief moment while I gave her her ballot and when I took her ballot. I washed hands thoroughly and discarded all the materials she used minus her ballot. I just woke up with these symptoms this morning and cannot tell if it's the flu or something greater. Since September 2019, Seamus has not been tested for COVID-19 and has had upper respiratory infection (URI) or influenza-like illness. Date(s) of previous URI or influenza-like illness (free-text): Couldn't tell you exact dates but itwas winter months between Oct-Dec Symptoms Seamus experienced during previous URI or influenza-like illness as reported by the patient (free-text): Cold, stuffed nose, sore throat. Pertinent medical history Seamus needs a return to work/school note. Weight: 312 lbs Seamus does not smoke or use smokeless tobacco. Weight: 312 lbs MEDICATIONS: trazodone oral, Lexapro oral, buspirone oral, ALLERGIES: minocycline Clinician Response: Dear Seamus, Based on the information provided, you have a viral upper respiratory infection, otherwise known as a cold. Symptoms vary from person to person, but can include sneezing, coughing, a runny nose, sore throat, and headache and range from mild to severe. Unfortunately, there are no medications that can cure a cold, so treatment is focused on controlling symptoms as much as possible. Most people gradually feel better until symptoms are gone in 1-2 weeks. Medication information Because you have a viral infection, antibiotics will not help you get better. Treating a viralinfection with antibiotics could actually make you feel worse. Self care Steps you can take to be ascomfortable as possible: Rest. Drink plenty of fluids. Take a warm shower to loosen congestion Use a cool-mist humidifier. Use throat lozenges. Suck on frozen items such as popsicles. Drink hot tea with lemon and honey. Gargle with warm salt water (1/4 teaspoon of salt per 8 ounce glass of water). Take a spoonful of honey to reduce your cough. When to seek care Please be seen in a clinic or urgent care if any of the following occur: New symptoms develop, or symptoms become worse Call ahead before going to the clinic or urgent care. Call 911or go to the emergency room if you feel that your throat is closing off, you suddenly develop a rash, you are unable to swallow fluids, you are drooling, or you are having difficulty breathing. Additional treatment plan Your symptoms show that you may have coronavirus (COVID-19). This illness can cause fever, cough and trouble breathing. Many people get a mild case and get better on their own. Some people can get very sick. Based on the symptoms you have shared, I would like you to be re-checked in 2 to 3 days. Please call your family clinic to set up a video or phone visit. Will I be tested for COVID-19? We would like to test you for this virus. Please call [phone] to schedule your visit. Explain that you were referred by [facility] to have a COVID-19 test. Be ready to share your [facility]. * If you need to schedule in [place] or [facility] [place] please call [phone] or for [employer] employees please call [phone]. The following will serve as your written order for this COVID Test, ordered by me, for the indication of suspected COVID [Z20.828]: The test will be ordered in [facility], our electronic health record, after you are scheduled. It will show as ordered and authorized by Anastacio Lindquist MD. Order: COVID-19 (Coronavirus) PCR for SYMPTOMATIC testing from [facility]. 1.When it'stime for your COVID test: Stay at least 6 feet away from others. (If someone will drive you to your test, stay in the backseat, as far away from the combine driver as you can.) Cover your mouth and nose with amask, tissue or washcloth. Go straight to the testing site. Don't make any stops on the way there orback. 2.Starting now: Stay home and away from others (self-isolate) until: You've had no fever---andno medicine that reduces fever---for one full day (24 hours). And... Your other symptoms have gotten better. For example, your cough or breathing has improved. And... At least 10 days have passed sinceyour symptoms started. During this time, don't leave the house except for testing or medical care. Stay in your own room, even for meals. Use your own bathroom if you can. Stay away from others in yourhome. No hugging, kissing or shaking hands. No visitors. Don't go to work, school or anywhere else. Clean high touch surfaces often (doorknobs, counters, handles, etc.). Use a household cleaning spray or wipes. You'll find a full list of paper inspector on the EPA website: www.epa.gov/pesticide-registration /jckc-n-fhvctoktxettb-ogj-hinvcva-evun-cov-2. Cover your mouth and nose with a mask, tissue or washcloth to avoid spreading germs. Wash your hands and face often. Use soap and water. Caregivers in these groups are at risk for severe illness due to COVID-19: o People 65 years and older o People who live in a penitentiary or long-term care facility o People with chronic disease (lung, heart, cancer, diabetes, kidney, liver, immunologic) o People who have a weakened immune system, including those who: Are in cancer treatment Take medicine that weakens the immune system, such as corticosteroids Had a bone marrow or organ transplant Have an immune deficiency Have poorly controlled HIV or AIDS Are obese(body mass index of 40 or higher) Smoke regularly o Caregivers should wear gloves while washing dishes, handling laundry and cleaning bedrooms and bathrooms. o Use caution when washing and drying laundry: Don't shake dirty laundry, and use the warmest water setting that you can. o For more tips, go to www.cdc.gov/coronavirus/2019-ncov/downloads/10Things.pdf. How can I take care of myself? Get lots ofrest. Drink extra fluids (unless a doctor has told you not to) Take Tylenol (acetaminophen) for fever or pain. If you have liver or kidney problems, ask your family doctor if it's okay to take Tylenol.Adults can take either: 650 mg (two 325 mg pills) every 4 to 6 hours, or... 1,000 mg (two 500 mg pills) every 8 hours as needed. Note: Don't take more than 3,000 mg in one day. Acetaminophen is found in many medicines (both prescribed and ckvw-zxx-seqqank medicines). Read all labels to be sure you don't take too much. For children, check the Tylenol bottle for the right dose. The dose is based on thechild's age or weight. If you have other health problems (like cancer, heart failure, an organ transplant or severe kidney disease): Call your specialty clinic if you don't feel better in the next 2 days. Know when to call 911. Emergency warning signs include: Trouble breathing or shortness of breath Pain or pressure in the chest that doesn't go away Feeling confused like you haven't felt before, or not being able to wake up Bluish-colored lips or face Where can I get more information? [facility] -- About COVID-19: www.[email or web address].[email or web address]/covid19/ CDC -- What to Do If You're Sick: www.cdc.gov /coronavirus/2019-ncov/about/lwtic-ewub-dahf.html CDC -- Ending Home Isolation: www.cdc.gov/coronavirus/2019-ncov/hcp/ylkmyccpcva-ip-zqlu-patients.html CDC -- Caring for Someone: www.cdc.gov/coronavirus /2019-ncov/gj-pkk-sjn-sick/ugkk-hyr-ygyomhx.html [facility] -- Interim Guidance for Hospital Discharge to Home: www.health.[facility].[place]/diseases/coronavirus/hcp/hospdischarge.pdf [facility] clinical trials (COVID-19 research studies): clinicalaffairs.[facility]/hzq-nlirznha-ztacgz Below are the COVID-19 hotlines at the [facility] ([facility]). Interpreters are available. For health questions: Call [phone] or (7 a.m. to 7 p.m.) For questions about schools and childcare: Call [phone] or (7 a.m. to 7 p.m.) Diagnosis: Contact with and (suspected) exposure to other viral communicable diseases Diagnosis ICD: Z20.828 IAL EQUIPMENT TECHNICIAN documented in this encounter Plan of Treatment Upcoming Encounters Date Type Specialty Care Team Description 11/04/2022 Office Visit Internal Medicine Marcy Ricketts APRN MACHINE SPECIALIST [address] [place], [place] [address] (Wo rk) documented as of this encounter Visit Diagnoses Not on filedocumented in this encounter Additional Health Concerns Assessment Noted Time PHQ-9 Depression Total Score: 16 04/18/2019 11:20 AM C DT documented as of this encounter Care Teams Email Production Specialist Relationship Specialty Start Date End Date Annalisa Silva NP PCP - General Nurse Practitioner - Adult 04/11/19 [address] [email or web address] [address] Annalisa Silva NP Assigned PCP 11/26/18 10/04/20 [address] [email or web address] [address] documented as of this encounter
--- OUTSIDE RECORDS SUMMARY | 2022-09-26 20:23 | XMS_ITS | Encounter Summary ---
:1995 Author Organization [place] Address [address] [facility] [facility] [place] [address] Care Team Providers Name Role Phone Annalisa Silva SHOE WORKER Unavailable Annalisa Silva SHOE WORKER Primary Care Provider Reason for Visit Reason Onset Date Comments Orders 07/05/2019 lab orders Encounter Details Date Type Department Care Team Description 07/05/[address] [facility] Annalisa Silva O rders (lab orders) [facility] [place] SHOE WORKER [address] [place] [address] [place], [place] [phone] (Wo rk) [id number] [phone] Social History Tobacco Use Types Packs/Day Years [...] this encounter Miscellaneous Notes Telephone Encounter - Maxine Cornelius RN - 07/05/2019 11:17 AM CDT Spoke with patient. States he already has an appointment scheduled. Next 5 appointments (look out 90 days) Jul 09, 2019 2:20 PM CDT Office Visit with Annalisa Silva NP [facility] [address] [facility] [id number] Detailed message left on Rayne's voice mail that patient has upcoming appointment. Telephone Encounter - Annalisa Silva NP - 07/05/2019 10:55 AM CDT Have pt schedule OV to discuss need for labs, EKG Annalisa Silva CNP Telephone Encounter - Nicole Maloney - 07/05/2019 10:15 AM CDT Rayne calling back and they need CBC, CMP,and EKG. Please fax the results to [phone]. Telephone Encounter - Maxine Cornelius RN - 07/05/2019 10:10 AM CDT Left message for Rayne to call back. Telephone Encounter - Lucia Paz - 07/05/2019 9:34 AM CDT Reason for Call: Request for an order or referral: Order or referral being requested: labs Date needed: at your convenience Has the patient been seen by the PCP for this problem? unsure Additional comments: Rayne from [facility] called to request lab orders for this patient becausehe is entering their eating disorder program. Please call Rayne to discuss what labs are needed. Phone number Patient can be reached at: Rayne at [facility] [phone] x [phone] Best Time: any Can we leave a detailed message on this number? YES Call taken on 07/05/2019 at 9:34 AM by Lucia Paz documented in this encounter Plan of Treatment Upcoming Encounters Date Type Specialty Care Team Description 11/04/2022 Office Visit Internal Medicine Marcy Ricketts, BAND EDGER CUSTOMER EXPERIENCE PROFESSIONAL [address] [place], [place] [address] (Wo rk) documented as of this encounter Visit Diagnoses Not on filedocumented in this encounter Additional Health Concerns Assessment Noted Time PHQ-9 Depression Total Score: 16 04/18/2019 11:20 AM C DT documented as of this encounter Care Teams Personal Banking Advisor Relationship Specialty Start Date End Date Annalisa Silva NP PCP - General Nurse Practitioner - Adult 04/11/19 [address] [employer] [place] [address] Annalisa Silva NP Assigned PCP 11/26/18 10/04/20 [address] [place] [address] [place] [address] documented as of this encounter
--- OUTSIDE RECORDS SUMMARY | 2022-09-26 20:23 | XMS_ITS | Encounter Summary ---
:1995 Author Organization [place] Address [facility] [place] [address] Care Team Providers Name Role Phone Annalisa Silva TOBACCO SAMPLE PULLER Primary Care Provider [phone] Marcy Ricketts APRN HOUSEKEEPING ASSOCIATE Unavailable [phone] Encounter Details Date Type Department Care Team Description 12/04/2020 Travel Social History Tobacco Use Types Packs/Day [...] been in contact with No / Unsure 12/04/2020 10:19 AM DESIGN CELL ENGINEER someone who was confirmed or suspected to have Coronavirus / COVID-19? documented as of this encounter Plan of Treatment Upcoming Encounters Date Type Specialty Care Team Description 11/04/2022 Office Visit Internal Medicine Marcy Ricketts APRN HOUSEKEEPING ASSOCIATE [address] [place], [place] [address] (Wo rk) documented as of this encounter Visit Diagnoses Not on filedocumented in this encounter Additional Health Concerns Assessment Noted Time PHQ-9 Depression Total Score: 16 04/18/2019 11:20 AM C DT documented as of this encounter Care Teams Vice President Quality Assurance Relationship Specialty Start Date End Date Annalisa Silva, TOBACCO SAMPLE PULLER PCP - General Nurse Practitioner - Adult 04/11/19 [address] [place] [address] Marcy Ricketts, Assigned PCP 10/05/20 01/03/21 ANIMAL DAMAGE CONTROL AGENT HOUSEKEEPING ASSOCIATE [address] [place] [address] documented as of this encounter
--- OUTSIDE RECORDS SUMMARY | 2022-09-26 20:23 | XMS_ITS | Encounter Summary ---
:1995 Author Organization [place] Address [address] [place] [address] Care Team Providers Name Role Phone Annalisa Silva BICYCLE TAXI DRIVER Primary Care Provider [phone] Marcy Ricketts APRN ELECTRONIC VIDEO GAMES SERVICER Unavailable [phone] Encounter Details Date Type Department Care Team Description 12/29/2020 Hospital Encounter [facility] Vivian Darby MD Encounter for [facility] [address] screening for other [address] [place] [address] Social History Tobacco Use Types Packs/Day Years [...] with No / Unsure 12/29/2020 10:56 AM FUR IRONER someone who was confirmed or suspected to have Coronavirus / COVID-19? documented as of this encounter Medications at Time of Discharge Medication Sig Dispensed Refills Start Date End Date hydrOXYzine (ATARAX) 25 Take 1-2 tablets 60 tablet 1 2018 MG tabletIndications: (25-50 mg) by mouth Generalized anxiety every 4 hours as disorder needed for anxiety Multiple Take 1 tablet by 0 Vitamins-Minerals (RALF mouth daily MULTI MEN PO) [place]-3 Fatty Acids (FISH Take 1 capsule by 0 OIL OMEGA-3 PO) mouth daily traZODone (DESYREL) 50 MG One or two at night 60 tablet 1 0 04/15/2019 tabletIndications: as needed Generalized anxiety disorder busPIRone (BUSPAR) 10 MG Take 1 tablet (10 60 tablet 1 03/3105/28/2021 tabletIndications: mg) by mouth 2 times Generalized anxiety daily disorder documented as of this encounter Plan of Treatment Upcoming Encounters Date Type Specialty Care Team Description 11/04/2022 Office Visit Internal Medicine Marcy Ricketts APRN ELECTRONIC VIDEO GAMES SERVICER [address] [place], [place] [address] (Wo rk) documented as of this encounter Procedures Procedure Name Priority Date/Time Associated Diagnosis Comme nts SARS-COV-2 Routine 12/29/2020 11:50 AM Encounter for Results for this (COVID-19) VIRUS FUR IRONER screening for other proc edure are in RT-PCR viral diseases the results section. COVID-19 VIRUS Routine 12/29/2020 11:50 AM Encounter for Resul ts for this (CORONAVIRUS) BY FUR IRONER screening for other proc edure are in PCR viral diseases the results section. documented in this encounter Results SARS-CoV-2 COVID-19 Virus (Coronavirus) by PCR (12/29/2020 11:50 AM FUR IRONER) [facility] Method Time Signature SARS-CoV-2 Nasopharyngeal 12/29/2020 INFECTIOUS Virus 9:45 PM FUR IRONER DISEASES Specimen DIAGNOSTIC Source LABORATORY, [facility] SARS-CoV-2 NEGATIVE 12/29/2020 INFECTIOUS PCR Result 9:45 PM FUR IRONER DISEASES DIAGNOSTIC LABORATORY, [facility] Comment: SARS-CoV2 (COVID-19) RNA not de tected, presumed negative. SARS-CoV-2 PCR Testing was performed using the Simplexa COVID-19 Direct Assay on the [employer] Liaison MDX 12/29/2020 9:45 PM INFECTIOUS DISEASES Comment instrument. Additional info rmation about this Emergency Use Authorization (EUA) assay can [facility] DIAGNOSTIC be found via the Lab Guide. Liam DOMINGUEZ, [facility] Comment: This test should be ordered for the dete ction of SARS-CoV-2 in individuals who meet SARS-CoV-2 clinical and/or epidemi ological criteria. Test performance is unknown in asymptomatic patients. This test is for in vitro diagnostic use under the FDA EUA for laboratories certified under CLIA to perform high com plexity testing. This test has not been FDA cleared or approved. A negative result does not rule out the presence of PCR inhibitors in the specimen or target RNA in concentration below the limit of detection for the assay. The possibility of a false negati ve should be considered if the patient's recent exposure or clinical pr esentation suggests COVID-19. This test was validated by the [facility]. This laboratory i s certified under the Clinical Laboratory Improvement Amendments of 198 8 (CLIA-88) as qualified to perform high complexity laboratory testing. Specimen (Source) Anatomical Collection Method Collection Time Re ceived Time Location / / Volume Laterality Specimen from 12/29/2020 11:50 12/29/2020 nasopharyngeal AM FUR IRONER 11:51 AM FUR IRONER structure (specimen) Vivian Darby MD LAB - MICRO GENERAL ORDERABL ES Performing Organization Address City/State/ZIP Code Phon e Number INFECTIOUS DISEASES DIAGNOSTIC [address] [address] [address] LABORATORY, [facility] Asymptomatic COVID-19 Virus (Coronavirus) by PCR (12/29/2020 11:50 AM FUR IRONER) Component Value Ref Test Analysis Performed At Patholo gist Range Method Time Signature COVID-19 Nasopharyngeal 12/29/2020 [facility] Virus PCR to 11:55 AM [facility] [place] - [facility] Source COVID-19 Test received-See 12/29/2020 INFECTIOUS Virus PCR to reflex to IDDL 2:09 PM [facility] DISEASES [facility] - test SARS CoV2 DIAGNOSTIC Result (COVID-19) Virus LABORATORY, RT-PCR [facility] Specimen (Source) Anatomical Collection Method Collection Time Re ceived Time Location / / Volume Laterality Specimen from 12/29/2020 11:50 12/29/2020 nasopharyngeal AM FUR IRONER 11:51 AM FUR IRONER structure (specimen) Vivian Darby MD LAB - MICRO GENERAL ORDERABL ES Performing Organization Address City/State/ZIP Code Phon e Number INFECTIOUS DISEASES [address] [place] [address] DIAGNOSTIC LABORATORY, [facility] [address] [place], [place] [address] [facility] [phone] documented in this encounter Visit Diagnoses Diagnosis Encounter for screening for other viral diseases documented in this encounter Additional Health Concerns Assessment Noted Time PHQ-9 Depression Total Score: 16 04/18/2019 11:20 AM C DT documented as of this encounter Care Teams Student Ambassador Relationship Specialty Start Date End Date Annalisa Silva, BETTY PCP - General Nurse Practitioner - Adult 04/11/19 [address] [place] [address] Marcy Ricketts, Assigned PCP 10/05/20 01/03/21 BATTER OUT ELECTRONIC VIDEO GAMES SERVICER [address] [place] [address] documented as of this encounter
--- OUTSIDE RECORDS SUMMARY | 2022-09-26 20:23 | XMS_ITS | Encounter Summary ---
:1995 Author Organization [place] Address [address] [place] [address] Care Team Providers Name Role Phone Annalisa Silva CALL SPECIALIST Primary Care Provider [phone] Marcy Ricketts APRN ULTRASONIC SOLDERER Unavailable [phone] Reason for Referral CV Testing (Routine) - Closed Specialty Diagnoses / Procedures Referred By Contact Refer red To Contact Cardiology Diagnoses Palpitations Robb Ellison MD Rh Cv Cardiac Svc Rs Procedures Leadless wind field manager 3 to 7 Days ZZHC EXT ECG > 48HR TO 21 DAY RCRD W/CONECT INTL RCRD ZZC EXT ECG > 48HR TO 21 DAY REVIEW AND INTERPRETATN MI EXT ECG > 48HR TO 21 DAY RCRD W/CONECT INTL [place] [facility] [address] [place] EXT ECG > 48HR TO 21 DAY REVIEW AND INTERPRETATN HC EXT ECG > 48HR TO 21 DAY RCRD W/CONECT INTL RCRD [address] [facility] [address] [place], [place] [address] [address] [place] [address] Phone: Fax: Referral ID Status Reason Start Date Expiration Date Visits Requ ested Visits Authorized [id number] Closed 12/02/2020 12/02/2021 1 1 BOAT BUILDER SUPERVISOR Reason for Visit CV Testing (Routine) - Closed Specialty Diagnoses / Procedures Referred By Contact Refer red To Contact Cardiology Diagnoses Palpitations Robb Ellison MD Rh Cv Cardiac Svc Rscc Procedures Leadless wind field manager 3 to 7 Days ZZHC EXT ECG > 48HR TO 21 DAY RCRD W/CONECT INTL RCRD ZZC EXT ECG > 48HR TO 21 DAY REVIEW AND INTERPRETATN MI EXT ECG > 48HR TO 21 DAY RCRD W/CONECT INTL [place] [address] [facility] [place] EXT ECG > 48HR TO 21 DAY REVIEW AND INTERPRETATN HC EXT ECG > 48HR TO 21 DAY RCRD W/CONECT INTL RCRD [address] [place], [place] [address] [address] [place] [address] Phone: Fax: Referral ID Status Reason Start Date Expiration Date Visits Requ ested Visits Authorized [id number] Closed 12/02/2020 12/02/2021 1 1 Encounter Details Date Type Department Care Team Description 12/04/2020 Hospital Encounter [facility] Robb Ellison [facility] Heart MD [facility] [address] [facility] [address] [place] [phone] Social History Tobacco Use Types Packs/Day Years [...] with No / Unsure 12/04/2020 10:19 AM WOOD BOAT BUILDER SUPERVISOR someone who was confirmed or suspected [...] Vitamins-Minerals (RALF mouth daily MULTI MEN PO) [place]-3 Fatty Acids Take 1 capsule by 0 [...] anxiety disorder documented as of this encounter Progress Notes Steph [facility] - 12/04/2020 10:38 AM CST 7 day ziopatch placed. BOAT BUILDER SUPERVISOR documented in this encounter Plan of Treatment Upcoming Encounters Date Type Specialty Care Team Description 11/04/2022 Office Visit Internal Medicine Marcy Ricketts APRN ULTRASONIC SOLDERER [address] [place], [place] [address] (Wo rk) documented as of this encounter Procedures Procedure Name Priority Date/Time Associated Diagnosis Comme nts LEADLESS DIAMOND DIE DRILLER AMRIT 12/04/2020 10:36 AM Palpitations APPLICATION AND WOOD BOAT BUILDER SUPERVISOR INTERPRETATION 3 TO 7 DAY documented in this encounter Results LEADLESS DIAMOND DIE DRILLER APPLICATION AND INTERPRETATION 3 TO 7 DAY (12/04/2020 10:36 AM WOOD BOAT BUILDER SUPERVISOR) Anatomical Region Laterality Modality Other Specimen (Source) Anatomical Location Collection Method / Collectio n Time Received Time / Laterality Volume Narrative This result has an attachment that is no t available. Robb Ellison MD CV CARDIAC SERVICES ORDERABL ES documented in this encounter Visit Diagnoses Diagnosis Palpitations documented in this encounter Additional Health Concerns Assessment Noted Time PHQ-9 Depression Total Score: 16 04/18/2019 11:20 AM C DT documented as of this encounter Care Teams Tire Fabricator Relationship Specialty Start Date End Date Annalisa Silva, CALL SPECIALIST PCP - General Nurse Practitioner - Adult 04/11/19 [address] [place], [place] [id number] Marcy Ricketts, Assigned PCP 10/05/20 01/03/21 HOSPITAL PRODUCT SPECIALIST ULTRASONIC SOLDERER [address] [place], [place] [id number] documented as of this encounter
--- OUTSIDE RECORDS SUMMARY | 2022-09-26 20:23 | XMS_ITS | Encounter Summary ---
:1995 Author Organization [place] Address [facility] [place] [address] Care Team Providers Name Role Phone Annalisa Silva CLINICAL RN MANAGER Primary Care Provider [phone] Marcy Ricketts APRN EXAMINATION GRADER Unavailable [phone] Encounter Details Date Type Department Care Team Description 12/25/2020 Travel Social History Tobacco Use Types Packs/Day [...] with No / Unsure 12/25/2020 1:17 PM LOCAL SUPERINTENDENT someone who was confirmed or suspected to have Coronavirus / COVID-19? documented as of this encounter Plan of Treatment Upcoming Encounters Date Type Specialty Care Team Description 11/04/2022 Office Visit Internal Medicine Marcy Ricketts APRN EXAMINATION GRADER [address] [place], [place] [address] (Wo rk) documented as of this encounter Visit Diagnoses Not on filedocumented in this encounter Additional Health Concerns Assessment Noted Time PHQ-9 Depression Total Score: 16 04/18/2019 11:20 AM C DT documented as of this encounter Care Teams Senior Front End Web Developer Relationship Specialty Start Date End Date Annalisa Silva, CLINICAL RN MANAGER PCP - General Nurse Practitioner - Adult 04/11/19 [address] [place] [address] Marcy Ricketts, Assigned PCP 10/05/20 01/03/21 HVAC SALES REPRESENTATIVE EXAMINATION GRADER [address] [place] [address] documented as of this encounter
--- OUTSIDE RECORDS SUMMARY | 2022-09-26 20:23 | XMS_ITS | Encounter Summary ---
:1995 Author Organization [place] Address [address] [place] [address] Care Team Providers Name Role Phone Annalisa Silva CROWN PERFORATOR OPERATOR Unavailable Annalisa Silva CROWN PERFORATOR OPERATOR Primary Care Provider [phone] Reason for Visit Reason Comments Shortness of Breath Encounter Details Date Type Department Care Team Description 09/10/2020 Emergency [facility] [place] 201 9 novel coronavirus disease (COVID-19); [facility] Emergency Dep kellie Bullard MD Viral pneumonia; [address] [facility]GENC[facility] PHYSICI[facility] Elevated blood pressure read ing without diagnosis of [place] [id number] [address] [address] [place] [address] (Wo rk) Social History Tobacco Use Types [...] with No / Unsure 09/10/2020 1:07 AM PROJECT MANAGEMENT ADVISOR someone who was confirmed or suspected to have Coronavirus / COVID-19? documented as of this encounter Last Filed Vital Signs Vital Sign Reading Time Taken Comments Blood Pressure 149/91 09/10/2020 2:10 AM PROJECT MANAGEMENT ADVISOR Pulse 83 09/10/2020 2:10 AM PROJECT MANAGEMENT ADVISOR Temperature 36.7 ??C (98.1 ??F) 09/10/2020 2:10 AM PROJECT MANAGEMENT ADVISOR Respiratory Rate 16 09/10/2020 2:10 AM PROJECT MANAGEMENT ADVISOR Oxygen Saturation 96% 09/10/2020 2:10 AM PROJECT MANAGEMENT ADVISOR Inhaled Oxygen Concentration - - Weight - - Height - - Body Mass Index - - documented in this encounter Discharge Instructions Discharge InstructionsJustin Garcia MD - 09/10/2020 2:29 AM PROJECT MANAGEMENT ADVISOR Discharge Instructions COVID-19 COVID-19 is the disease caused by a new coronavirus. The virus spreads from [id number] primarily by droplets when an infected person coughs or sneezes and the droplet either lands on another person or that other person touches a surface with the droplet on it. There are tests available to diagnose COVID-19. There is no specific treatment or medicine for the disease. You may have been diagnosed with COVID, may be being tested for COVID and have a pending test result, or may have been exposed to COVID. Symptoms of COVID-19 Many people have no symptoms or mild symptoms. Symptoms may usually appear 4 to 5 days (up to 14 days) after contact with a person with COVID-19. Some people will get severe symptoms and pneumonia. Usual symptoms are: ? Fever ? Cough ? Trouble breathing Less common symptoms are: Headache, body aches, sore throat, sneezing, diarrhea,loss of taste or smell. Isolation and Quarantine You were seen because you have symptoms, had an exposure, or had some other concern about possible COVID. The best way to stop the spread of the virus is to avoid contact with others. Isolation refers to sick people staying away from people who are not sick. A person in quarantine islimiting activity because they were exposed and are waiting to see if they might become sick. If you test positive for COVID, you should stay home (isolation) for at least 10 days after your symptoms began, and for 24 hours with no fever and improvement of symptoms--whichever is longer. (Your fever should be gone for 24 hours without using fever-reducing medicine). If you have no symptoms, youshould stay home (isolation) for 10 days from the day of the test. For example, if you have a fever and cough for 6 days, you need to stay home 4 more days with no fever for a total of 10 days. Or, if you have a fever and cough for 10 days, you need to stay home one more day with no fever for a total of 11 days. If you have a high-risk exposure to COVID (you spent 15 minutes or more within six feet of somebody who has COVID), you should stay home (quarantine) for 14 days. Even if you test negative for COVID, the CDC recommends a 14-day quarantine from the time of your last exposure to that individual. If you have symptoms but a negative test, you should stay at home until you are symptom-free and without fever for 24 hours, using the same judgment you would for when it is safe to return to work/school from strep throat, influenza, or the common cold. If you worsen, you should consider being re-evaluated. If you are being tested for COVID and your test is pending, you should stay home until you know yourtest result. How should I protect myself and others? Do not go to work or school. Have a friend or relative do your shopping. Do not use public transportation (bus, train) or ridesharing (Lyft, Uber). Separate yourself from other people in your home.?As much as possible, you should stay in one room and away from other people in your home. Also, use a separate bathroom, if possible. Avoid handling pets or other animals while sick. Wear a facemask if you need to be around other people and cover your mouth and nose with a tissue when you cough or sneeze. Avoid sharing personal household items. You should not share dishes, drinking glasses, forks/knives/spoons, towels, or bedding with other people in your home. After using these items, they should be washed with soap and water. Clean parts of your home that are touched often (doorknobs, faucets, countertops, etc.) daily. Wash your hands often with soap and water for at least 20 seconds or use an alcohol-based hand customer counter associate containing at least 60% alcohol. Avoid touching your face. Treat your symptoms. You can take Acetaminophen (Tylenol) to treat body aches and fever as needed for comfort. Ibuprofen (Advil or Motrin) can be used as well if you still have symptoms after taking Tylenol. Drink fluids. Rest. Watch for worsening symptoms such as shortness of breath/difficulty breathing or very severe weakness. Employers/workplaces are being asked by the Centers for Disease Control (CDC) to not request notes/documentation for you to return to work or prove that you were ill. You may choose to show your employer this paperwork. Also, repeat testing should not be required to return to work. Return to the Emergency Department if: If you are developing worsening breathing, shortness of breath, or feel worse you should seek medical attention. If you are uncertain, contact your health care provider/clinic. If you need emergency medical attention, call 911 and tell them you have been ill. Discharge Instructions Hypertension - High Blood Pressure During you visit to the Emergency Department, your blood pressure was higher than the recommended blood pressure. This may be related to stress, pain, medication or other temporary conditions. In thesecases, your blood pressure may return to normal on its own. If you have a history of high blood pressure, you may need to have your doctor adjust your medications. Sometimes, your high measurement heremay indicate that you have developed high blood pressure that will stay high unless it is treated. Sudden very high blood pressure can cause problems, but usually high blood pressure causes problems over months to years. Blood pressure is almost never lowered in the Emergency Department, because studies have shown that lowering blood pressure too quickly is much more dangerous than leaving it alone. You need to follow up with your doctor in 1-3 days to get your blood pressure rechecked. Return to the Emergency Department if you start to have: A severe headache. Chest pain. Shortness of breath. Weakness or numbness that affects one part of the body. Confusion. Vision changes. Significant swelling of legs and/or eyes. A reaction to any medication started in the Emergency Department. What can I do to help myself? Avoid alcohol. Take any blood pressure medicine that you are prescribed. Get a good night???s sleep. Lower your salt intake. Exercise. Lose weight. Manage stress. If blood pressure medication was started in the Emergency Department: The medicine may not have an immediate effect. The body and brain determine what blood pressure you have. The medicine???s job is to retrain the body???s ???thermostat?? to a lower blood pressure. You will need to follow up with your doctor to see how this medicine is working for you. If you were given a prescription for medicine here today, be sure to read all of the information (including the package insert) that comes with your prescription. This will include important information about the medicine, its side effects, and any warnings that you need to know about. The pharmacist who fills the prescription can provide more information and answer questions you may have about the medicine. If you have questions or concerns that the pharmacist cannot address, please call or return to the Emergency Department. Opioid Medication Information Pain medications are among the most commonly prescribed medicines, so we are including this information for all our patients. If you did not receive pain medication or get a prescription for pain medicine, you can ignore it. You may have been given a prescription for an opioid (narcotic) pain medicine and/or have received apain medicine while here in the Emergency Department. These medicines can make you drowsy or impaired. You must not drive, operate dangerous equipment, or engage in any other dangerous activities whiletaking these medications. If you drive while taking these medications, you could be arrested for DUI, or driving under the influence. Do not drink any alcohol while you are taking these medications. Opioid pain medications can cause addiction. If you have a history of chemical dependency of any type, you are at a higher risk of becoming addicted to pain medications. Only take these prescribed medications to treat your pain when all other options have been tried. Take it for as short a time and asfew doses as possible. Store your pain pills in a secure place, as they are frequently stolen and provide a dangerous opportunity for children or visitors in your house to start abusing these powerful medications. We will not replace any lost or stolen medicine. As soon as your pain is better, you should flush all your remaining medication. Many prescription pain medications contain Tylenol?? (acetaminophen), including Vicodin??, Tylenol #3??, [place]??, Lortab??, and Percocet??. You should not take any extra pills of Tylenol?? if you are using these prescription medications or you can get very sick. Do not ever take more than 3000 mg of acetaminophen in any 24 hour period. All opioids tend to cause constipation. Drink plenty of water and eat foods that have a lot of fiber, such as fruits, vegetables, prune juice, apple juice and high fiber cereal. Take a laxative if you don???t move your bowels at least every other day. Miralax??, Milk of Magnesia, Colace??, or Senna?? can be used to keep you regular. Remember that you can always come back to the Emergency Department if you are not able to see your regular doctor in the amount of time listed above, if you get any new symptoms, or if there is anything that worries you. ECT MANAGEMENT ADVISOR documented in this encounter Medications at Time of Discharge Medication Sig Dispensed Refills Start Date End Date hydrOXYzine (ATARAX) 25 Take 1-2 tablets 60 tablet 1 2018 MG tabletIndications: (25-50 mg) by mouth Generalized anxiety every 4 hours as disorder needed for anxiety Multiple Take 1 tablet by 0 Vitamins-Minerals (RALF mouth daily MULTI MEN PO) [place]-3 Fatty Acids (FISH Take 1 capsule by 0 OIL OMEGA-3 PO) mouth daily traZODone (DESYREL) 50 MG One or two at night 60 tablet 1 0 04/15/2019 tabletIndications: as needed Generalized anxiety disorder azithromycin (ZITHROMAX Take 1 tablet (250 4 tablet 0 05/202009/11/2020 Z-THOMAS) 250 MG tablet mg) by mouth daily for 4 days busPIRone (BUSPAR) 10 MG Take 1 tablet (10 60 tablet 1 03/3105/28/2021 tabletIndications: mg) by mouth 2 Generalized anxiety times daily disorder predniSONE (DELTASONE) 20 Take two tablets (= 10 tablet 0 1 11/06/2019 12/29/2020 MG tablet 40mg) each day for 5 (five) days venlafaxine (EFFEXOR-XR) Take 1 capsule (150 30 capsule 1 12/29/2020 150 MG 24 hr mg) by mouth daily capsuleIndications: Generalized anxiety disorder documented as of this encounter ED Notes Alex Rich RN - 09/10/2020 2:09 AM CST Here for sob, coughing up brown colored sputum, chest heaviness, body aches, fever/chills. Took tylenol about 6-7 hours prior to arrival. Positive for COVID on . Seen here on Tuesday, diagnosewith pneumonia, prescribed prednisone and azithromycin, but not feeling better. ABCs intact. ECT MANAGEMENT ADVISOR Justin Garcia MD - 09/10/2020 2:03 AM CST History Chief Complaint: Shortness of Breath The history is provided by the patient. Seamus Barnes is a 25 year old male who presents with shortness of breath and chest pressure. Of note, the patient was recently seen for this on 09/04, where he tested positive for COVID and was sent home with Zithromax and prednisone. He reports that since this time his symptoms have persisted, and his cough has become sharper and more productive, and reports coughing up brownish stuff. He also endorses persisting body aches, diarrhea, and occasional chills and fevers. The patient reports he has been staying inside and has been wearing his mask. Allergies: Minocycline Medications: Azithromycin Buspirone Hydroxyzine Prednisone Trazodone Venlafaxine Past Medical History: Anxiety Suicidal ideation Past Surgical History: Right knee surgery Nose surgery Family History: History reviewed. No pertinent family history. Social History: The patient was accompanied to the ED. Smoking Status: Never smoker Smokeless Tobacco: Former user - chew Alcohol Use: Yes Drug Use: No Marital Status: Single Review of Systems Constitutional: Positive for chills and fatigue. Respiratory: Positive for cough, chest tightness (pressure) and shortness of breath. Gastrointestinal: Positive for diarrhea. Musculoskeletal: Positive for myalgias (body aches). All other systems reviewed and are negative. Physical Exam Patient Vitals for the past 24 hrs: BP Temp Temp src Pulse Resp SpO2 09/10/20 0210 (!) 149/91 98.1 ??F (36.7 ??C) Oral 83 16 96 % Physical Exam General: The patient is alert, in no respiratory distress. HENT: Mucous membranes moist. Cardiovascular: Regular rate and rhythm. Good pulses in all four extremities. Normal capillary refill and skin turgor. Respiratory: Lungs are clear. No nasal flaring. No retractions. No wheezing, no crackles. Dry cough. Gastrointestinal: Abdomen soft. No guarding, no rebound. No palpable hernias. Musculoskeletal: No gross deformity. Skin: No rashes or petechiae. Neurologic: The patient is alert and oriented x3. GCS 15. No testable cranial nerve deficit. Followscommands with clear and appropriate speech. Gives appropriate answers. Good strength in all extremities. No gross neurologic deficit. Gross sensation intact. Pupils are round and reactive. No meningismus. Lymphatic: No cervical adenopathy. No lower extremity swelling. Psychiatric: The patient is non-tearful. Emergency Department Course Emergency Department Course: Past medical records, nursing notes, and vitals reviewed. 0221 I performed an exam of the patient as documented above. Findings and plan explained to the Patient. Patient discharged home with instructions regarding supportive care, medications, and reasons to return. The importance of close follow-up was reviewed. I personally answered all related questions prior to discharge. Impression & Plan Covid-19 Seamus Barnes was evaluated during a global COVID-19 pandemic, which necessitated considerationthat the patient might be at risk for infection with the SARS-CoV-2 virus that causes COVID-19. Applicable protocols for evaluation were followed during the patient's care. COVID-19 was considered as part of the patient's evaluation. A test was obtained at a previous visitand reviewed & considered today. Medical Decision Making: The patient had previously been diagnosed with Covid. He had been seen in the ER and due to his productive cough had been started on azithromycin however it sounds like from his description all the cough is rust colored it is not always present and it is more nagging than anything else. He does not appear to be in any respiratory distress not hypoxic. The patient said that he presents the ER because he is concerned about complications that we does not show signs of a cardiomyopathy I do not feel he likely has a PE and there is no impending respiratory distress. I think the patient is continuing to have bronchitis. I will have him continue his antibiotic to complete the course but I feel this is most likely a viral pneumonia from Covid and he was discharged home in good condition. The patient feltreassured after I described that he is likely passed the expected time of complications. Symptoms return for discussed. Diagnosis: ICD-10-CM 1. 2019 novel coronavirus disease (COVID-19) U07.1 2. Viral pneumonia J12.9 3. Elevated blood pressure reading without diagnosis of hypertension R03.0 Disposition: Discharged to home. Discharge Medications: None. Scribe Disclosure: I, Yina Swanson, am serving as a scribe at 2:21 AM on 09/10/2020 to document services personally performed by Justin Garcia MD based on my observations and the provider's statements to me. Yina Swanson 09/10/2020 [facility] EM[facility] Justin Garcia MD 09/10/20 0644 ECT MANAGEMENT ADVISOR documented in this encounter Plan of Treatment Upcoming Encounters Date Type Specialty Care Team Description 11/04/2022 Office Visit Internal Medicine Marcy Ricketts APRN ASSISTANT BOOKKEEPER [address] [place], [place] [address] (Wo rk) documented as of this encounter Visit Diagnoses Diagnosis 2019 novel coronavirus disease (COVID-19 ) Viral pneumonia Viral pneumonia, unspecified Elevated blood pressure reading without diagnosis of hypertension documented in this encounter Additional Health Concerns Assessment Noted Time PHQ-9 Depression Total Score: 16 04/18/2019 11:20 AM C DT documented as of this encounter Care Teams Battery Starter Relationship Specialty Start Date End Date Annalisa Silva NP PCP - General Nurse Practitioner - Adult 04/11/19 [address] [place] [address] [place] [address] Annalisa Silva NP Assigned PCP 11/26/18 10/04/20 [address] [place] [address] documented as of this encounter
--- OUTSIDE RECORDS SUMMARY | 2022-09-26 20:23 | XMS_ITS | Encounter Summary ---
:1995 Author Organization [place] Address [facility] [place] [address] Care Team Providers Name Role Phone Annalisa Silva LEAD CARGOMAN Primary Care Provider [phone] Marcy Ricketts APRN BROACHING MACHINE OPERATOR Unavailable [phone] Encounter Details Date Type Department Care Team Description 12/02/2020 Travel Social History Tobacco Use Types Packs/Day [...] with No / Unsure 12/02/2020 5:33 PM CONDITIONER TUMBLER someone who was confirmed or suspected to have Coronavirus / COVID-19? documented as of this encounter Plan of Treatment Upcoming Encounters Date Type Specialty Care Team Description 11/04/2022 Office Visit Internal Medicine Marcy Ricketts APRN BROACHING MACHINE OPERATOR [address] [place], [place] [address] (Wo rk) documented as of this encounter Visit Diagnoses Not on filedocumented in this encounter Additional Health Concerns Assessment Noted Time PHQ-9 Depression Total Score: 16 04/18/2019 11:20 AM C DT documented as of this encounter Care Teams Circulation Manager Relationship Specialty Start Date End Date Annalisa Silva, LEAD CARGOMAN PCP - General Nurse Practitioner - Adult 04/11/19 [address] [place] [address] Marcy Ricketts, Assigned PCP 10/05/20 01/03/21 SOFTWARE ENGINEERING SPECIALIST BROACHING MACHINE OPERATOR [address] [place] [address] documented as of this encounter
--- OUTSIDE RECORDS SUMMARY | 2022-09-26 20:23 | XMS_ITS | Encounter Summary ---
:1995 Author Organization [place] Address [address] [facility] [facility] [address] Care Team Providers Name Role Phone Annalisa Silva WOODWORK SALVAGE INSPECTOR Unavailable Annalisa Silva WOODWORK SALVAGE INSPECTOR Primary Care Provider [phone] Reason for Visit Reason Comments RECHECK covid 09/10, needs letter to go back to work Encounter Details Date Type Department Care Team Description 09/19/2020 Virtual Visit [facility] Marcy Ricketts Clinical diagnosis of Clinic Eugene CLAUDIO Griffin CNP COVID-19 (Primary Dx) [address] [place] [address] Social History Tobacco Use Types Packs/Day Years [...] have you been in contact with Yes 09/19/2020 2:25 PM WATCH DIAL STONER someone who was confirmed or suspected to have Coronavirus / COVID-19? documented as of this encounter Patient Instructions Patient InstructionsMarcy Ricketts APRN CNP - 09/19/2020 2:00 PM WATCH DIAL STONER Letter done H DIAL STONER documented in this encounter Progress Notes Marcy Ricketts APRN CNP - 09/19/2020 2:00 PM CST Subjective Seamus Barnes is a 25 year old male who presents to clinic today for the following health issues: This was a telephone visit He agreed to phone visit HPI Positive covid Treated with antibiotic Pretty much recovered Still has fatigue Slowly taste and smell returning Took this week off Out of quarantine Tuesday, but had fatigue and mild symptoms Back to work Tuesday09/22/2020 Needs note for work Review of Systems Constitutional, HEENT, cardiovascular, pulmonary, GI, , musculoskeletal, neuro, skin, endocrine and psych systems are negative, except as otherwise noted. Objective There were no vitals taken for this visit. There is no height or weight on file to calculate BMI. Physical Exam GENERAL: alert and no distress RESP: no wheezing no cough- able to speak in paragraphs without SOB PSYCH: mentation appears normal, affect normal/bright Positive covid test per report 09/06/2020 Assessment & Plan Clinical diagnosis of COVID-19 Improving Still has some fatigue and taste and smell returning Otherwise feels well Patient Instructions Letter done Return in about 1 year (around 09/19/2021). Phone visit 8 minutes Marcy Ricketts APRN CNP [facility] H DIAL STONER documented in this encounter Plan of Treatment Upcoming Encounters Date Type Specialty Care Team Description 11/04/2022 Office Visit Internal Medicine Marcy Ricketts APRN CNP [address] [place], [place] [address] (Wo rk) documented as of this encounter Visit Diagnoses Diagnosis Clinical diagnosis of COVID-19 - Primary documented in this encounter Additional Health Concerns Assessment Noted Time PHQ-9 Depression Total Score: 16 04/18/2019 11:20 AM C DT documented as of this encounter Care Teams Bundle Tier Relationship Specialty Start Date End Date Annalisa Silva NP PCP - General Nurse Practitioner - Adult 04/11/19 [address] [place], [place] [id number] Annalisa Silva NP Assigned PCP 11/26/18 10/04/20 [address] [place], [place] [id number] documented as of this encounter
--- OUTSIDE RECORDS SUMMARY | 2022-09-26 20:23 | XMS_ITS | Encounter Summary ---
:1995 Author Organization [place] Address [facility] [place] [address] Care Team Providers Name Role Phone Annalisa Silva CUSTOMER CARE ASSOCIATE Unavailable Annalisa Silva NP Primary Care Provider [phone] Reason for Visit Reason Onset Date Comments Fever 09/03/2020 Encounter Details Date Type Department Care Team Description 09/03/2020 Telephone [facility] Annalisa Silva NP Fever [place] [address] [place] [address] [place] [address] [phone] Social History Tobacco Use Types Packs/Day Years [...] in contact with Yes 09/03/2020 10:00 AM FIRE SAFETY INSPECTOR someone who was confirmed or suspected to have Coronavirus / COVID-19? documented as of this encounter Miscellaneous Notes Telephone Encounter - Jacquie Boyce, NICOLA - 09/03/2020 1:55 PM CST pts Mom calls stating he went through [facility] for COVID test and is going to be tested in [facility] somewhere this weekend. [place] asking [place] and sooner appt. Calin has a fever of 101 now. Gave her the phone # for [facility] drive through testing and also the COVID phone # to see about [facility] appointments. She agrees with this plan . SAFETY INSPECTOR documented in this encounter Plan of Treatment Upcoming Encounters Date Type Specialty Care Team Description 11/04/2022 Office Visit Internal Medicine Marcy Ricketts APRN RIGGER APPRENTICE [address] [place], [place] [address] (Wo rk) documented as of this encounter Visit Diagnoses Not on filedocumented in this encounter Additional Health Concerns Assessment Noted Time PHQ-9 Depression Total Score: 16 04/18/2019 11:20 AM C DT documented as of this encounter Care Teams Blindstitch Hemmer Relationship Specialty Start Date End Date Annalisa Silva NP PCP - General Nurse Practitioner - Adult 04/11/19 [address] [facility] [place] [address] Annalisa Silva NP Assigned PCP 11/26/18 10/04/20 [address] [facility] [place] [address] documented as of this encounter
--- OUTSIDE RECORDS SUMMARY | 2022-09-26 20:23 | XMS_ITS | Encounter Summary ---
:1995 Author Organization [place] Address [facility] [place] [address] Care Team Providers Name Role Phone Annalisa Silva ANNUAL GIVING MANAGER Primary Care Provider [phone] Marcy Ricketts APRN SEWER AND INSPECTOR Unavailable [phone] Encounter Details Date Type Department Care Team Description 12/29/2020 Travel Social History Tobacco Use Types Packs/Day [...] with No / Unsure 12/29/2020 10:56 AM FLIGHT CONTROLS ENGINEER someone who was confirmed or suspected to have Coronavirus / COVID-19? documented as of this encounter Plan of Treatment Upcoming Encounters Date Type Specialty Care Team Description 11/04/2022 Office Visit Internal Medicine Marcy Ricketts APRN SEWER AND INSPECTOR [address] [place], [place] [address] (Wo rk) documented as of this encounter Visit Diagnoses Not on filedocumented in this encounter Additional Health Concerns Assessment Noted Time PHQ-9 Depression Total Score: 16 04/18/2019 11:20 AM C DT documented as of this encounter Care Teams Toll Line Mechanic Relationship Specialty Start Date End Date Annalisa Silva, ANNUAL GIVING MANAGER PCP - General Nurse Practitioner - Adult 04/11/19 [address] [place] [address] Marcy Ricketts, Assigned PCP 10/05/20 01/03/21 FIRE RANGER SEWER AND INSPECTOR [address] [place] [address] documented as of this encounter
--- OUTSIDE RECORDS SUMMARY | 2022-09-26 20:23 | XMS_ITS | Encounter Summary ---
:1995 Author Organization [place] Address [address] [place] [address] Care Team Providers Name Role Phone Annalisa Silva PIANO AND ORGAN REFINISHER Unavailable Annalisa Silva PIANO AND ORGAN REFINISHER Primary Care Provider [phone] Reason for Visit Reason Comments Shortness of Breath Encounter Details Date Type Department Care Team Description 09/06/2020 - Emergency [facility] Edwin Mann COVID-19 virus infection; 09/07/2020 [facility] Emergency GAIL Amin Pneumonia Dept [facility] [address] [place], [place] [address] [address] [address] [place] [address] [place] [address] (Wo rk) Social History Tobacco Use Types [...] in contact with Yes 09/06/2020 8:30 PM AQUATICS COORDINATOR someone who was confirmed or suspected to have Coronavirus / COVID-19? documented as of this encounter Last Filed Vital Signs Vital Sign Reading Time Taken Comments Blood Pressure 125/64 09/07/2020 12:15 AM AQUATICS COORDINATOR Pulse 70 09/07/2020 12:15 AM AQUATICS COORDINATOR Temperature 37.1 ??C (98.7 ??F) 09/06/2020 8:32 PM AQUATICS COORDINATOR Respiratory Rate 18 09/07/2020 12:21 AM AQUATICS COORDINATOR Oxygen Saturation 97% 09/07/2020 12:15 AM AQUATICS COORDINATOR Inhaled Oxygen Concentration - - Weight - - Height - - Body Mass Index - - documented in this encounter Discharge Instructions AttachmentsThe following attachments cannot be sent through Care Everywhere. Adult, Pneumonia (Maltese)Coronavirus Disease 2019: Caring for Yourself and Others (Maltese)documented in this encounter Medications at Time of Discharge Medication Sig Dispensed Refills Start Date End Date hydrOXYzine (ATARAX) 25 Take 1-2 tablets 60 tablet 1 2018 MG tabletIndications: (25-50 mg) by mouth Generalized anxiety every 4 hours as disorder needed for anxiety Multiple Take 1 tablet by 0 Vitamins-Minerals (RALF mouth daily MULTI MEN PO) [place]-3 Fatty Acids (FISH Take 1 capsule by [...] documented as of this encounter ED Notes Yolanda Seymour RN - 09/06/2020 8:31 PM CST Patient reports developing COVID symptoms Antonietta night. Tested positive today. Increased SOB on exertion. Took RETAIL MERCHANDISER TECHNICIAN TICS COORDINATOR Edwin Mann PA-C - 09/06/2020 8:23 PM CST History Chief Complaint: Shortness of Breath HPI Seamus Barnes is a 25 year old male who presents with increased shortness of breath on exertionfor the past four days. He notes having shortness of breath with things like walking the stairs which he never had an issue in the past. He notes having fever, chills, fatigue, body aches, coughing forthe last few days. He tested positive for Covid-19 today. Due to concern for progression of disease he comes to the ED. Allergies: Minocycline Medications: Buspirone Hydroxyzine Trazodone Venlafaxine Past Medical History: Anxiety Obesity Suicidal Past Surgical History: Nose surgery Right knee orthopedic surgery Family History: History reviewed. No pertinent family history. Social History: Smoking status: no Smokeless tobacco: no Alcohol use: occasionally Drug use: no Marital Status: Single [1] Review of Systems Constitutional: Positive for activity change, chills, fatigue and fever. HENT: Positive for congestion. Respiratory: Positive for cough, chest tightness and shortness of breath. Negative for wheezing. Cardiovascular: Negative for chest pain. Gastrointestinal: Positive for diarrhea. Negative for abdominal pain and vomiting. All other systems reviewed and are negative. Physical Exam Patient Vitals for the past 24 hrs: BP Temp Temp src Pulse Resp SpO2 09/06/20 2345 126/62 -- -- 63 -- 97 % 09/06/20 2330 132/79 -- -- 60 -- 98 % 09/06/20 2315 127/77 -- -- 63 -- 99 % 09/06/20 2300 137/72 -- -- 61 -- 97 % 09/06/20 2245 139/80 -- -- 67 -- 98 % 09/06/20 2230 -- -- -- -- -- 99 % 09/06/20 2215 114/71 -- -- 58 -- 97 % 09/06/202199 108/66 -- -- 51 -- 98 % 09/06/202034 (!) 159/98 -- -- -- -- -- 09/06/202031 (!) 182/122 98.7 ??F (37.1 ??C) Oral 80 20 97 % Physical Exam Vitals signs and nursing note reviewed. Constitutional: General: He is not in acute distress. Appearance: He is not diaphoretic. HENT: Head: Normocephalic and atraumatic. Eyes: General: No scleral icterus. Extraocular Movements: Extraocular movements intact. Cardiovascular: Rate and Rhythm: Normal rate and regular rhythm. Pulses: Normal pulses. Heart sounds: Normal heart sounds. Pulmonary: Effort: Pulmonary effort is normal. No respiratory distress. Breath sounds: Normal breath sounds. Musculoskeletal: General: No tenderness. Right lower leg: No edema. Left lower leg: No edema. Skin: General: Skin is warm. Findings: No rash. Neurological: Mental Status: He is alert. Emergency Department Course Imaging: Radiology findings were communicated with the patient who voiced understanding of the findings. XR Chest Port 1 View IMPRESSION: Mild right sided pneumonia. As read by Radiology. Laboratory: Laboratory findings were communicated with the patient who voiced understanding of the findings. Lactic acid 2235: 0.7 INR: 0.97 CRP inflammation: 5.0 CBC: WBC 2.7(L), o/w WNL (HGB 15.1, PLT 161) CMP: WNL (Creatinine 1.04) Interventions: 2234 NS 1L IV Bolus 2334 Azithromycin 500 mg PO 2336 Decadron 10 mg IV 2341 Rocephin 2 g IV Emergency Department Course: Past medical records, nursing notes, and vitals reviewed. 2158: I performed an exam of the patient and obtained history, as documented above. IV inserted and blood drawn. The patient was sent for a XR while in the emergency department, results above. 0: I rechecked the patient. I reviewed the results with the Patient and answered all related questions prior to discharge. Findings and plan explained to the Patient. Patient discharged home with instructions regarding supportive care, medications, and reasons to return. The importance of close follow-up was reviewed. Impression & Plan [facility] Diagnoses: Medical Decision Making: He presents for evaluation of viral syndrome. He is noted to have tested positive for COVID. He has no hypoxemia, increased effort, or adventitious lung sounds. His diagnostic labs at this time are reassuring. He is unlikely to be pulmonary embolism as he is wells low risk and PERC negative. Imaging de monstrates pneumonia prompting antibiotics. Plan for prednisone, Azithromycin as an outpatient. Precautions for which to seek immediate medical attention discussed. All questions answered. Critical Care Time: was 0 minutes for this patient excluding procedures Covid-19 Seamus Barnes was evaluated during a global COVID-19 pandemic, which necessitated considerationthat the patient might be at risk for infection with the SARS-CoV-2 virus that causes COVID-19. Applicable protocols for evaluation were followed during the patient's care. COVID-19 was considered as part of the patient's evaluation. The plan for testing is: A positive test was obtained 09/06/2020 and reviewed & considered today. Diagnosis: ICD-10-CM 1. Suspected COVID-19 virus infection Z20.828 2. Pneumonia J18.9 Disposition: Discharged to home. Discharge Medications: New Prescriptions AZITHROMYCIN (ZITHROMAX Z-THOMAS) 250 MG TABLET Take 1 tablet (250 mg) by mouth daily for 4 days PREDNISONE (DELTASONE) 20 MG TABLET Take two tablets (= 40mg) each day for 5 (five) days Miriam Iverson 09/06/2020 [facility] EMERGENCY DEPT Scribe Disclosure: Miriam Moctezuma, am serving as a scribe at 11:52 PM on 09/06/2020 to document services personally performed by Edwin Mann PA-C based on my observations and the provider's statements to me. Edwin Mann PA-C 09/07/20 0009 TICS COORDINATOR documented in this encounter Plan of Treatment Upcoming Encounters Date Type Specialty Care Team Description 11/04/2022 Office Visit Internal Medicine Marcy Ricketts APRN PROCESS DEVELOPMENT ENGINEER [address] [place], [place] [address] (Wo rk) documented as of this encounter Procedures Procedure Name Priority Date/Time Associated Comments Diagnosis XR CHEST PORT 1 VIEW STAT 09/06/2020 10:58 Res ults for this PM AQUATICS COORDINATOR procedure are i n the results section. CBC WITH PLATELETS & STAT 09/06/2020 10:35 Res ults for this DIFFERENTIAL PM AQUATICS COORDINATOR procedure are i n the results section. INR STAT 09/06/2020 10:35 Results for this PM AQUATICS COORDINATOR procedure are i n the results section. LACTIC ACID WHOLE STAT 09/06/2020 10:35 Result s for this BLOOD PM AQUATICS COORDINATOR procedure are i n the results section. CRP INFLAMMATION STAT 09/06/2020 10:35 Results for this PM AQUATICS COORDINATOR procedure are i n the results section. COMPREHENSIVE STAT 09/06/2020 10:35 Results fo r this METABOLIC PANEL PM AQUATICS COORDINATOR procedure ar e in the results section. documented in this encounter Results XR Chest Port 1 View (09/06/2020 10:58 PM AQUATICS COORDINATOR) Anatomical Region Laterality Modality Chest Digital Radiography Specimen (Source) Anatomical Collection Method Collection Time Re ceived Time Location / / Volume Laterality 09/06/2020 10:33 PM AQUATICS COORDINATOR Impressions 09/06/2020 11:06 PM AQUATICS COORDINATOR IMPRESSION: Mild right sided pneumonia. Narrative 09/06/2020 11:06 PM AQUATICS COORDINATOR EXAM: XR CHEST PORT 1 VW LOCATION: [facility] DATE/TIME: 09/06/2020 10:33 PM INDICATION: Cough. Fever. Shortness of b reath. COMPARISON: 03/23/2018. FINDINGS: Upright portable chest. The he art size is normal. Probable patchy infiltrate in the right mid and lower lung. The left lung is clear. No pneumothorax. Procedure Note Roger Kelley MD - 09/06/2020Form atting of this note might be different from the original. EXAM: XR CHEST PORT 1 VW LOCATION: [facility] DATE/TIME: 09/06/2020 10:33 PM INDICATION: Cough. Fever. Shortness of b reath. COMPARISON: 03/23/2018. FINDINGS: Upright portable chest. The he art size is normal. Probable patchy infiltrate in the right mid and lower lung. The left lung is clear. No pneumothorax. IMPRESSION: Mild right sided pneumonia. Edwin Mann PA-C IMG DIAGNOSTIC IMAGING OR DERABLES Lactic acid whole blood (09/06/2020 10:35 PM AQUATICS COORDINATOR) P athologist Signature Lactic Acid 0.7 0.7 - 2.0 09/06/2020 [facility] mmol/L 10:46 PM [facility] Specimen Anatomical Collection Method Collection Time Receive d Time (Source) Location / / Volume Laterality Blood specimen 09/06/2020 10:35 0 (specimen) PM AQUATICS COORDINATOR 10:42 PM AQUATICS COORDINATOR Edwin Mann PA-C LAB - BLOOD ORDERABLES Performing Organization Address City/[facility]/ZIP Code Phon e Number M [facility] [address] [place], [place] [address] [facility] [address] [place], [place] [address] [phone] CRP inflammation (09/06/2020 10:35 PM AQUATICS COORDINATOR) athologist Signature CRP Inflammation 5.0 0.0 - 8.0 09/06/2020 [place] mg/L 11:01 PM [facility] Specimen Anatomical Collection Method Collection Time Receive d Time (Source) Location / / Volume Laterality Blood specimen 09/06/2020 10:35 0 (specimen) PM AQUATICS COORDINATOR 10:41 PM AQUATICS COORDINATOR Edwin Mann PA-C LAB - BLOOD ORDERABLES Performing Organization Address City/State/ZIP Code Phon e Number M [facility] [address] [place] [address] [phone] [facility] [address] [address], [facility] [phone] Comprehensive metabolic panel (09/06/2020 10:35 PM AQUATICS COORDINATOR) athologist Signature Sodium 138 133 - 144 09/06/2020 [place] mmol/L 10:53 PM [facility] Potassium 4.1 3.4 - 5.3 09/06/2020 [place] mmol/L 10:53 PM [facility] Chloride 106 94 - 109 09/06/2020 [place] mmol/L 10:53 PM [facility] Carbon Dioxide 28 20 - 32 09/06/2020 [place] mmol/L 10:59 PM [facility] Anion Gap 4 3 - 14 09/06/2020 [place] mmol/L 10:59 PM [facility] Glucose 85 70 - 99 09/06/2020 [place] mg/dL 10:59 PM [facility] Urea Nitrogen 14 7 - 30 09/06/2020 [place] mg/dL 10:59 PM [facility] Creatinine 1.04 0.66 - 09/06/2020 [place] 1.25 mg/dL 10:59 PM [facility] GFR Estimate >90 >60 09/06/2020 [place] mL/min/{1. 10:59 PM [facility] 73_m2} HOSPITAL Comment: Non GFR Calc Starting 10/17/2018, serum creatinine ba sed estimated GFR (eGFR) will be calculated using the Chronic Kidney Dise [facility] Epidemiology Collaboration (CKD-EPI) equation. GFR Estimate If >90 >60 mL/min/{1.73_m2} 09/06/2020 10 :59 PM [facility] Comment: GFR Calc Starting 10/17/2018, serum creatinine ba sed estimated GFR (eGFR) will be calculated using the Chronic Kidney Dise [facility] Epidemiology Collaboration (CKD-EPI) equation. Calcium 8.5 8.5 - 10.1 mg/dL 09/06/2020 10:59 PM [facility] Bilirubin Total 0.3 0.2 - 1.3 mg/dL 09/06/2020 11:01 P [facility] Albumin 3.7 3.4 - 5.0 g/dL 09/06/2020 11:01 PM [facility] Protein Total 7.3 6.8 - 8.8 g/dL 09/06/2020 11:01 PM [facility] Alkaline Phosphatase 97 40 - 150 U/L 09/06/2020 11:01 PM [facility] ALT 49 0 - 70 U/L 09/06/2020 11:01 PM [facility] AST 27 0 - 45 U/L 09/06/2020 11:01 PM [facility] Specimen Anatomical Collection Method Collection Time Receive d Time (Source) Location / / Volume Laterality Blood specimen 09/06/2020 10:35 0 (specimen) PM AQUATICS COORDINATOR 10:41 PM AQUATICS COORDINATOR Edwin Mann PA-C LAB - BLOOD ORDERABLES Performing Organization Address City/State/ZIP Code Phon e Number [facility] [address] [place] [address] [facility] [address] [place], [place] [address], [facility] [phone] [facility] [address] [address], [facility] INR (09/06/2020 10:35 PM AQUATICS COORDINATOR) P athologist Signature INR 0.97 0.86 - 1.14 09/06/2020 [facility] 11:02 PM [facility] Specimen Anatomical Collection Method Collection Time Receive d Time (Source) Location / / Volume Laterality Blood specimen 09/06/2020 10:35 0 (specimen) PM AQUATICS COORDINATOR 10:41 PM AQUATICS COORDINATOR Edwin Mann PA-C LAB - BLOOD ORDERABLES Performing Organization Address City/State/ZIP Code Phon e Number M [facility] [address] [place], [place] [address] [facility] [address] [place], [place] [address], [facility] [phone] (ABNORMAL) CBC with platelets differential (09/06/2020 10:35 PM AQUATICS COORDINATOR) [facility] gist Method Time Signature WBC 2.7 (L) 4.0 - 09/06/2020 [facility] 11.0 10:45 PM [facility] 10e9/L [facility] RBC Count 4.74 4.4 - 5.9 09/06/2020 [facility] 10e12/L 10:45 PM [facility] Hemoglobin 15.1 13.3 - 09/06/2020 [facility] 17.7 g/dL 10:45 PM [facility] Hematocrit 46.0 40.0 - 09/06/2020 [facility] 53.0 % 10:45 PM [facility] MCV 97 78 - 100 09/06/2020 [facility] fl 10:45 PM [facility] MCH 31.9 26.5 - 09/06/2020 [facility] 33.0 pg 10:45 PM [facility] MCHC 32.8 31.5 - 09/06/2020 [facility] 36.5 g/dL 10:45 [facility] RDW 12.9 10.0 - 09/06/2020 [facility] 15.0 % 10:45 PM [facility] Platelet Count 161 150 - 450 09/06/2020 [facility] 10e9/L 10:45 PM [facility] Diff Method Automated 09/06/2020 [facility] Method 10:45 PM [facility] % Neutrophils 43.2 % 09/06/2020 [facility] 10:45 PM [facility] % Lymphocytes 39.8 % 09/06/2020 [facility] 10:45 PM [facility] % Monocytes 15.8 % 09/06/2020 [facility] 10:45 PM [facility] % Eosinophils 0.4 % 09/06/2020 [facility] 10:45 PM [facility] % Basophils 0.4 % 09/06/2020 [facility] 10:45 PM [facility] % Immature 0.4 % 09/06/2020 [facility] Granulocytes 10:45 PM [facility] Nucleated RBCs 0 0 /100 09/06/2020 [facility] 10:45 PM [facility] Absolute 1.2 (L) 1.6 - 8.3 09/06/2020 [facility] Neutrophil 10e9/L 10:45 PM [facility] Absolute 1.1 0.8 - 5.3 09/06/2020 [facility] Lymphocytes 10e9/L 10:45 PM [facility] Absolute 0.4 0.0 - 1.3 09/06/2020 [facility] Monocytes 10e9/L 10:45 PM [facility] Absolute 0.0 0.0 - 0.7 09/06/2020 [facility] Eosinophils 10e9/L 10:45 PM [facility] Absolute 0.0 0.0 - 0.2 09/06/2020 [facility] Basophils 10e9/L 10:45 PM [facility] Abs Immature 0.0 0 - 0.4 09/06/2020 [facility] Granulocytes 10e9/L 10:45 PM [facility] Absolute 0.0 09/06/2020 [facility] Nucleated RBC 10:45 PM [facility] Specimen Anatomical Collection Method Collection Time Receive d Time (Source) Location / / Volume Laterality Blood specimen 09/06/2020 10:35 0 (specimen) PM AQUATICS COORDINATOR 10:41 PM AQUATICS COORDINATOR Edwin Mann PA-C LAB - BLOOD ORDERABLES Performing Organization Address City/State/ZIP Code Phon e Number M [facility] [address], [place] [address] [facility] [address] [place], [place] [address] [phone] documented in this encounter Visit Diagnoses Diagnosis Suspected COVID-19 virus infection Pneumonia Pneumonia, organism unspecified documented in this encounter Administered Medications Inactive Administered Medications - up to 3 most recent administrations Medication Order MAR Action Action Date Dose Rate Site 0.9% sodium chloride BOLUS New Bag 09/06/2020 10:34 PM 1,000 mLs 1000 mL/hr Intravenous, 1,000 mL, AQUATICS COORDINATOR ONCE, at 1,000 mL/hr, Administer over 1 Hours, On 09/06/20 at 2210, For 1 dose azithromycin (ZITHROMAX) tablet 500 mg Given 09/06/2020 11:34 PM AQUATICS COORDINATOR 500 mg STAT, 500 mg, Oral, ONCE, On 09/06/20 at 2310, For 1 dose, Indications: Community Acquired Pneumonia cefTRIAXone (ROCEPHIN) 2 g vial to attach to New Bag 04/2020 11:41 PM AQUATICS COORDINATOR 2 g NS 100 ml bag for ADULTS or NS 50 ml bag for PEDS STAT, 2 g, Intravenous, ONCE, On 09/06/20 at 2310, For 1 dose, Indications: Community Acquired Pneumonia dexamethasone PF (DECADRON) injection 10 mg Given 09/06/2020 11:36 PM AQUATICS COORDINATOR 10 mg 10 mg, Intravenous, ONCE, Administer over 1 Minutes, On 09/06/20 at 2310, For 1 dose, For IV doses 1-20 mg, give IV Push undiluted over 1 minute. sodium chloride 0.9% infusion at 125 mL/hr, Intravenous, CONTINUOUS, A dminister after the bolus., Starting on 09/06/20 at 2310, Until 09/07/20 at 0223 documented in this encounter Active and Recently Administered Medications Times are shown in AQUATICS COORDINATOR. Scheduled Medication Order 09/05/2020 09/06/2020 09/07/2020 0.9% sodium chloride BOLUS (COMPLETED) 2 234 (New Bag - Provider: Ev Lindquist RN)2342 (Stopped - Provider: Ev Lindquist RN) Intravenous, 1,000 mL, ONCE, at 1,000 mL /hr, Administer over 1 Hours, 09/06/20 at 2210, For 1 dose azithromycin (ZITHROMAX) tablet 500 mg (COMPLETED) 2334 (Given - Provider: Julia Harper) STAT, 500 mg, Oral, ONCE, 09/06/20 at 2310, For 1 dose, Indications: Community Acquired Pneumonia cefTRIAXone (ROCEPHIN) 2 g vial to attac h to NS 100 ml bag for ADULTS or NS 50 ml bag for PEDS (COMPLETED) 2341 (New Bag - Provider: Nataliya Harper) 0013 (Stopped - Provider: Ev Lindquist RN) STAT, 2 g, Intravenous, ONCE, On 09/06/20 at 2310, For 1 dose, Indications: Community Acquired Pneumonia dexamethasone PF (DECADRON) injection 10 mg (COMPLETED) 2336 (Given - Provider: Julia Harper) 10 mg, Intravenous, ONCE, Administer ove r 1 Minutes, 09/06/20 at 2310, For 1 dose, For IV doses 1-20 mg, give IV Push undiluted over 1 minute. Continuous Medication Order 09/05/2020 09/06/2020 09/07/2020 sodium chloride 0.9% infusion 2310 ([facility] eled Entry - Provider: Orders Generic Provider - Comment: Automatically canceled at discontinue of medication order) at 125 mL/hr, Intravenous, CONTINUOUS, A dminister after the bolus., Starting 09/06/20 at 2310, Until 09/07/20 at 0223 documented in this encounter Additional Health Concerns Assessment Noted Time PHQ-9 Depression Total Score: 16 04/18/2019 11:20 AM C DT documented as of this encounter Care Teams Leading Firefighter Relationship Specialty Start Date End Date Annalisa Silva NP PCP - General Nurse Practitioner - Adult 04/11/19 [address], [place] [address] Annalisa Silva NP Assigned PCP 11/26/18 10/04/[address] [place], [place] [address] documented as of this encounter
--- OUTSIDE RECORDS SUMMARY | 2022-09-26 20:23 | XMS_ITS | Encounter Summary ---
:1995 Author Organization [place] Address [address] [facility] [place] [address] Care Team Providers Name Role Phone Annalisa Silva RIVETER HAND Unavailable Annalisa Silva RIVETER HAND Primary Care Provider [phone] Reason for Visit Reason Onset Date Comments Forms 07/11/2019 [facility] Encounter Details Date Type Department Care Team Description 07/11/2019 Telephone [facility] Annalisa Silva F [place] ([facility]) [facility] [place] RIVETER HAND [address] [place] [address] [place], [place] [phone] (Wo rk) [address] [phone] Social History Tobacco Use Types Packs/Day Years [...] this encounter Miscellaneous Notes Telephone Encounter - Lexy Rachel MA - 07/12/2019 8:15 AM CDT Form signed and faxed. Quiana RACHEL CMA Telephone Encounter - Nicole Maloney - 07/11/2019 4:54 PM CDT Medical clearance form received via fax. Form in your mailbox to be signed. documented in this encounter Plan of Treatment Upcoming Encounters Date Type Specialty Care Team Description 11/04/2022 Office Visit Internal Medicine Marcy Ricketts APRN CABLE PLACER [address] [place], [place] [address] (Wo rk) documented as of this encounter Visit Diagnoses Not on filedocumented in this encounter Additional Health Concerns Assessment Noted Time PHQ-9 Depression Total Score: 16 04/18/2019 11:20 AM C DT documented as of this encounter Care Teams Group Home Supervisor Relationship Specialty Start Date End Date Annalisa Silva NP PCP - General Nurse Practitioner - Adult 04/11/19 [address] [address] [place], [place] [address] Annalisa Silva NP Assigned PCP 11/26/18 10/04/20 [id number] [place] [address] documented as of this encounter
--- OUTSIDE RECORDS SUMMARY | 2022-09-26 20:23 | XMS_ITS | Encounter Summary ---
:1995 Author Organization [place] Address [address] [place] [address] Care Team Providers Name Role Phone Annalisa Silva INSTRUCTOR KNITTING Unavailable Annalisa Silva NP Primary Care Provider [phone] Reason for Visit Reason Comments Consult medical cannabis and EKG and labs Encounter Details Date Type Department Care Team Description 07/09/2019 Office Visit [facility] Annalisa Silva, Clinic Meghan Yousif NP unspecified type [address] (Primary Dx) [place], [place] [id number] [phone] Social History Tobacco Use Types Packs/Day Years Used Date Smoking Tobacco: Never Smokeless Tobacco: Never Tobacco Cessation: Counseling Given: No Comments: dad smokes outside Alcohol Use Standard [...] AM CDT documented as of this encounter Last Filed Vital Signs Vital Sign Reading Time Taken Comments Blood Pressure 148/89 07/09/2019 2:28 PM CDT Pulse 69 07/09/2019 2:28 PM CDT Temperature 37 ??C (98.6 ??F) 07/09/2019 2:28 PM CDT Respiratory Rate 18 07/09/2019 2:28 PM CDT Oxygen Saturation 97% 07/09/2019 2:28 PM CDT Inhaled Oxygen Concentration - - Weight 130.6 kg (287 lb 14.4 oz) 07/09/2019 2:28 PM CDT Height 188 cm (6' 2) 07/09/2019 2:28 PM CDT Body Mass Index 36.96 07/09/2019 2:28 PM CDT documented in this encounter Progress Notes Annalisa Silva, BETTY - 07/09/2019 2:20 PM CDT Subjective Seamus Barnes is a 24 year old male who presents to clinic today for the following health issues: Patient here to discuss medical cannabis and discuss need for EKG and labs. HPI Intensive outpt treatment for depression, anxiety, who is now diagnosis ed with eating disorder, binge/purge type Program requesting labs and urine tests. Pt has questions regarding medical marijuana program, knows he needs to apply himself and evaluated by provider approved by State and costs are likely out of pocket. Patient Active Problem List Diagnosis ??? Obesity ??? Anxiety disorder ? ? Nausea & vomiting ??? Suicidal ideations Past Surgical History: Procedure Laterality Date ??? NOSE SURGERY 03/23/2019 ??? ORTHOPEDIC SURGERY 07/29/16 rt knee Social History Tobacco Use ??? Smoking status: Never Smoker ??? Smokeless tobacco: Never Used ??? Tobacco comment: dad smokes outside Substance Use Topics ??? Alcohol use: Yes Drinks per session: 3 or 4 Binge frequency: Weekly Comment: occasional Family History Problem Relation Age [...] Take 1 tablet by mouth daily ??? [place]-3 Fatty Acids (FISH OIL [place]ME[place]-3 PO) Take 1 capsule by mouth daily ??? traZODone (DESYREL) 50 MG tablet One or two at night as needed 60 tablet 1 ??? venlafaxine (EFFEXOR-XR) 150 MG 24 hr capsule Take 1 capsule (150 mg) by mouth daily 30 capsule 1 BP Readings from Last 3 Encounters: 07/09/19 (!) 148/89 04/18/19 116/62 04/15/19 127/79 Wt Readings from Last 3 Encounters: 07/09/19 130.6 kg (287 lb 14.4 oz) 04/18/19 114 kg (251 lb 6.4 oz) 04/15/19 110.9 kg (244 lb 7.8 oz) Reviewed and updated as needed this visit by Provider Review of Systems ROS COMP: Constitutional, HEENT, cardiovascular, pulmonary, gi and gu systems are negative, except as otherwise noted. Objective BP (!) 148/89 (BP Location: Right arm, Patient Position: Sitting, Cuff Size: Adult Regular) Pulse 69 Temp 98.6 ??F (37 ??C) (Oral) Resp 18 Ht 1.88 m (6' 2) Wt 130.6 kg (287 lb 14.4 oz) SpO2 97% BMI 36.96 kg/m?? Physical Exam GENERAL: alert, no distress and obese PSYCH: mentation appears normal, affect flat and appearance well groomed Assessment & Plan ICD-10-CM 1. Eating disorder, unspecified type F50.9 CBC with platelets Comprehensive metabolic panel Folate Vitamin B12 Lipid panel reflex to direct LDL Non-fasting TSH with free T4 reflex UA reflex to Microscopic and Culture BMI: Estimated body mass index is 36.96 kg/m?? as calculated from the following: Height as of this encounter: 1.88 m (6' 2). Weight as of this encounter: 130.6 kg (287 lb 14.4 oz). F/u pending las F/u therapy and treatment program. Annalisa Silva NP [facility] documented in this encounter Nursing Notes Sharonda Mcnulty - 07/09/2019 2:20 PM CDT BP (!) 148/89 (BP Location: Right arm, Patient Position: Sitting, Cuff Size: Adult Regular) Pulse 69 Temp 98.6 ??F (37 ??C) (Oral) Resp 18 Ht 1.88 m (6' 2) Wt 130.6 kg (287 lb 14.4 oz) SpO2 97% BMI 36.96 kg/m?? Patient here to discuss medical cannabis and need for EKG and lab work. documented in this encounter Plan of Treatment Upcoming Encounters Date Type Specialty Care Team Description 11/04/2022 Office Visit Internal Medicine Marcy Ricketts APRN ACCOUNT MANAGEMENT ASSISTANT [address] [place], [place] [address] (Wo rk) documented as of this encounter Procedures Procedure Name Priority Date/Time Associated Comments Diagnosis UA MACROSCOPIC WITH Routine 07/09/2019 2:52 PM Eating disorder , Results for this REFLEX TO MICROSCOPIC CDT unspecified type pr ocedure are in AND CULTURE the results section. FOLATE Routine 07/09/2019 2:50 PM Eating disorder, Resul ts for this CDT unspecified type procedure a re in the results section. TSH WITH FREE T4 Routine 07/09/2019 2:49 PM Eating disorder, R esults for this REFLEX CDT unspecified type procedure a re in the results section. LIPID REFLEX TO DIRECT Routine 07/09/2019 2:49 PM Eating disor nimesh, Results for this LDL PANEL CDT unspecified type procedure a re in the results section. COMPREHENSIVE Routine 07/09/2019 2:49 PM Eating disorder, Resu lts for this METABOLIC PANEL CDT unspecified type procedur e are in the results section. VITAMIN B12 Routine 07/09/2019 2:49 PM Eating disorder, Resul ts for this CDT unspecified type procedure a re in the results section. CBC WITH PLATELETS Routine 07/09/2019 2:49 PM Eating disorder, Results for this CDT unspecified type procedure a re in the results section. documented in this encounter Results UA reflex to Microscopic and Culture (07/09/2019 2:52 PM CDT) Patholo gist Method Time Signature Color Urine Yellow 07/09/2019 [facility] 3:29 PM CDT [facility] Appearance Urine Clear 07/09/2019 [facility] 3:29 PM CDT [facility] Glucose Urine Negative NEG^Negat 07/09/2019 [facility] jorge mg/dL 3:29 PM CDT [facility] Bilirubin Urine Negative NEG^Negat 07/09/2019 [facility] jorge 3:29 PM CDT [facility] Ketones Urine Negative NEG^Negat 07/09/2019 [facility] jorge mg/dL 3:29 PM CDT [facility] Specific Stewart 1.015 1.003 - 07/09/2019 [facility] Urine 1.035 3:29 PM CDT [facility] Blood Urine Negative NEG^Negat 07/09/2019 [facility] jorge 3:29 PM CDT [facility] pH Urine 5.5 5.0 - 7.0 07/09/2019 [facility] pH 3:29 PM CDT [facility] Protein Albumin Negative NEG^Negat 07/09/2019 [facility] Urine jorge mg/dL 3:29 PM CDT [facility] Urobilinogen 0.2 0.2 - 1.0 07/09/2019 [facility] Urine EU/dL 3:29 PM CDT [facility] Nitrite Urine Negative NEG^Negat 07/09/2019 [facility] jorge 3:29 PM CDT [facility] Leukocyte Negative NEG^Negat 07/09/2019 [facility] Esterase Urine jorge 3:29 PM CDT [facility] Source Midstream 07/09/2019 [facility] Urine 2:53 PM CDT [facility] Specimen (Source) Anatomical Collection Method Collection Time Re ceived Time Location / / Volume Laterality Examination of 07/09/2019 2:52 07/09/2019 2:53 midstream urine PM CDT PM CDT specimen (procedure) Annalisa Silva NP LAB - URINE ORDERABLES Performing Organization Address City/State/ZIP Code Phon e Number [facility] [address] [place] [address] [address] Folate (07/09/2019 2:50 PM CDT) P athologist Signature Folate 11.1 >5.4 ng/mL 07/09/2019 [facility] [place] 8:08 PM CDT [facility] Specimen Anatomical Collection Method Collection Time Receive d Time (Source) Location / / Volume Laterality Blood specimen 07/09/2019 2:50 PM 019 2:51 (specimen) CDT PM CDT Annalisa Silva INSTRUCTOR KNITTING LAB - BLOOD ORDERABLES Performing Organization Address City/State/ZIP Code Phon e Number [facility] [address] [place] [address] [facility] TSH with free T4 reflex (07/09/2019 2:49 PM CDT) athologist Signature TSH 1.71 0.40 - 4.00 07/10/2019 [facility] mU/L 2:18 PM CDT [facility] Specimen Anatomical Collection Method Collection Time Receive d Time (Source) Location / / Volume Laterality Blood specimen 07/09/2019 2:49 PM 019 2:50 (specimen) CDT PM CDT Annalisa Silva INSTRUCTOR KNITTING LAB - BLOOD ORDERABLES Performing Organization Address City/State/ZIP Code Phon e Number [facility] [address] [place] [address] (ABNORMAL) Lipid panel reflex to direct LDL Non-fasting (07/09/2019 2:49 PM CDT) athologist Signature Cholesterol 206 (H) <200 mg/dL 07/10/2019 [facility] 2:10 PM [facility] Comment: Desirable: <200 mg/dl Triglycerides 204 (H) <150 mg/dL 07/10/2019 2:10 PM CDT [facility] Comment: Borderline high: ??150-199 mg/dl High: ? 200-499 mg/dl Very high: ? >499 mg/dl HDL Cholesterol 43 >39 mg/dL 07/10/2019 2:10 PM [facility] LDL Cholesterol 122 (H) <100 mg/dL 07/10/2019 2:10 PM [facility] Comment: Above desirable: ??100-129 mg/dl Borderline High: ??130-159 mg/dL High: ? 160-189 mg/dL Very high: ? >189 mg/dl Non HDL Cholesterol 163 (H) <130 mg/dL 07/10/2019 2:10 PM [facility] CDT [facility] Comment: Above Desirable: ??130-159 mg/dl Borderline high: ??160-189 mg/dl High: ? 190-219 mg/dl Very high: ? >219 mg/dl Specimen Anatomical Collection Method Collection Time Receive d Time (Source) Location / / Volume Laterality Blood specimen 07/09/2019 2:49 PM 019 2:50 (specimen) CDT PM CDT Annalisa Silva INSTRUCTOR KNITTING LAB - BLOOD ORDERABLES Performing Organization Address City/State/ZIP Code Phon e Number [facility] [address] [place] [address] Vitamin B12 (07/09/2019 2:49 PM CDT) P athologist Signature Vitamin B12 608 193 - 986 07/09/2019 [facility] pg/mL 9:29 PM CDT [facility] Specimen Anatomical Collection Method Collection Time Receive d Time (Source) Location / / Volume Laterality Blood specimen 07/09/2019 2:49 PM 019 2:50 (specimen) CDT PM CDT Annalisa Silva INSTRUCTOR KNITTING LAB - BLOOD ORDERABLES Performing Organization Address City/State/ZIP Code Phon e Number [facility] [address] [place] [address] [facility] (ABNORMAL) Comprehensive metabolic panel (07/09/2019 2:49 PM CDT) P athologist Signature Sodium 139 133 - 144 07/10/2019 [facility] mmol/L 1:32 PM CDT [facility] Potassium 4.2 3.4 - 5.3 07/10/2019 [facility] mmol/L 1:32 PM CDT [facility] Chloride 104 94 - 109 07/10/2019 [facility] mmol/L 1:32 PM CDT [facility] Carbon Dioxide 28 20 - 32 07/10/2019 [facility] mmol/L 2:04 PM [facility] Anion Gap 7 3 - 14 07/10/2019 [facility] mmol/L 2:04 PM T [facility] Glucose 80 70 - 99 07/10/2019 [facility] mg/dL 2:04 PM [facility] Urea Nitrogen 19 7 - 30 07/10/2019 [facility] mg/dL 2:04 PM [facility] Creatinine 0.99 0.66 - 07/10/2019 [facility] 1.25 mg/dL 2:04 PM [facility] GFR Estimate >90 >60 07/10/2019 [facility] mL/min/{1. 2:04 PM T CLINICS 73_m2} [facility] Comment: Non GFR Calc Starting 10/17/2018, serum creatinine ba sed estimated GFR (eGFR) will be calculated using the Chronic Kidney Dise [facility] Epidemiology Collaboration (CKD-EPI) equation. GFR Estimate If >90 >60 mL/min/{1.73_m2} 07/10/2019 2: 04 PM [facility] Black [facility] Comment: GFR Calc Starting 10/17/2018, serum creatinine ba sed estimated GFR (eGFR) will be calculated using the Chronic Kidney Dise [facility] Epidemiology Collaboration (CKD-EPI) equation. Calcium 9.2 8.5 - 10.1 07/10/2019 2:04 PM [facility] LINICS mg/dL [facility] Bilirubin Total 0.3 0.2 - 1.3 07/10/2019 2:10 PM [facility] mg/dL [facility] Albumin 4.0 3.4 - 5.0 g/dL 07/10/2019 2:10 PM [facility] EW CLINICS [facility] Protein Total 7.2 6.8 - 8.8 g/dL 07/10/2019 2:10 PM [facility] Alkaline Phosphatase 113 40 - 150 U/L 07/10/2019 2:10 PM [facility] ALT 82 (H) 0 - 70 U/L 07/10/2019 2:10 PM [facility] C LINICS T [facility] AST 26 0 - 45 U/L 07/10/2019 2:10 PM [facility] C LINICS CDT [facility] Specimen Anatomical Collection Method Collection Time Receive d Time (Source) Location / / Volume Laterality Blood specimen 07/09/2019 2:49 PM 019 2:50 (specimen) CDT PM CDT Annalisa Silva INSTRUCTOR KNITTING LAB - BLOOD ORDERABLES Performing Organization Address City/[facility]/ZIP Code Phon e Number [facility] [address] [place] [address] CBC with platelets (07/09/2019 2:49 PM CDT) P athologist Signature WBC 8.9 4.0 - 11.0 07/09/2019 [facility] 10e9/L 3:17 PM CDT [facility] RBC Count 4.69 4.4 - 5.9 07/09/2019 [facility] 10e12/L 3:17 PM CDT [facility] Hemoglobin 15.0 13.3 - 07/09/2019 [facility] 17.7 g/dL 3:17 PM CDT [facility] Hematocrit 45.3 40.0 - 07/09/2019 [facility] 53.0 % 3:17 PM CDT [facility] MCV 97 78 - 100 07/09/2019 [facility] fl 3:17 PM CDT [facility] MCH 32.0 26.5 - 07/09/2019 [facility] 33.0 pg 3:17 PM CDT [facility] MCHC 33.1 31.5 - 07/09/2019 [facility] 36.5 g/dL 3:17 PM CDT [facility] RDW 13.3 10.0 - 07/09/2019 [facility] 15.0 % 3:17 PM CDT [facility] Platelet Count 228 150 - 450 07/09/2019 [facility] 10e9/L 3:17 PM CDT [facility] Specimen Anatomical Collection Method Collection Time Receive d Time (Source) Location / / Volume Laterality Blood specimen 07/09/2019 2:49 PM 019 2:50 (specimen) CDT PM CDT Annalisa Silva NP LAB - BLOOD ORDERABLES Performing Organization Address City/[facility]/ZIP Code Phon e Number [facility] [address] [place], [place] [address] [address] documented in this encounter Visit Diagnoses Diagnosis Eating disorder, unspecified type - Prim albaro documented in this encounter Additional Health Concerns Assessment Noted Time PHQ-9 Depression Total Score: 16 04/18/2019 11:20 AM C DT documented as of this encounter Care Teams Identity Management Developer Relationship Specialty Start Date End Date Annalisa Silva NP PCP - General Nurse Practitioner - Adult 04/11/19 [address] [place], [place] [id number] Annalisa Silva NP Assigned PCP 11/26/18 10/04/20 [address] [place], [place] [id number] documented as of this encounter
--- OUTSIDE RECORDS SUMMARY | 2022-09-26 20:23 | XMS_ITS | Encounter Summary ---
:1995 Author Organization [place] Address [address] [place] [address] Care Team Providers Name Role Phone Annalisa Silva WET ROASTER Primary Care Provider [phone] Marcy Ricketts APRN FISH CUTTER Unavailable [phone] Reason for Visit Reason Onset Date Comments Results 12/19/2020 Zio patch Encounter Details Date Type Department Care Team Description 12/19/[address] [facility] Mariam Gamez, Results (Zio patch ) Clinic Nataliya RN [address] [facility] [address] [place] [address] Social History Tobacco Use Types [...] with No / Unsure 12/04/2020 10:19 AM ENGINE INSPECTOR someone who was confirmed or suspected to have Coronavirus / COVID-19? documented as of this encounter Miscellaneous Notes Telephone Encounter - Mariam Gamez RN - 12/22/2020 11:08 AM CST Pt called back, informed of apt date, time & location. He will be able to make this apt. Pt given directions to the clinic. Pt stats he did have a few episodes of dizziness but mostly had feelings of skipped beats while wearing the monitor. He denies feeling like he might pass out. Shahab PETERSEN NE INSPECTOR Telephone Encounter - Jacquie Boyce RN - 12/22/2020 10:19 AM CST Luz Elenach I Rhythm tech calls. They want to make sure that the message below was addressed. Informed her that The VT of 217 bpm was relayed to Flight Communications Specialist. And that pt has upcoming appt with Dr Darby this week. She agrees with this. NE INSPECTOR Telephone Encounter - Mariam Gamez RN - 12/22/2020 9:48 AM CST Attempted to call pt with Ziopatch results, recommendations from Dr. Porter & upcoming apt w/ . Left message for pt to call back. Shahab PETERSEN NE INSPECTOR Telephone Encounter - Mariam Gamez RN - 12/19/2020 5:45 PM CST Received Ziopatch showing a long run of VT up to 217 bpm. The pt was noted as having symptoms. It was ordered by ED MD after pt went to the ED having dizziness Per ED note dated 12/02/20, Seamus Barnes is a 25 year old [...] etiology for his dizziness that requires advanced imaging. Symptoms do not as well suggest peripheral vertigo. EKG shows sinus rhythm without any acute ST change concerning for acute ischemia or infarct. No evidence of delta wave, p rolonged QTC, Brugada, HOCM. Basic lab studies are unremarkable. He denies chest pain and I doubt ACS or other life-threatening acute cardiopulmonary process causing his symptoms. He had no evidence oforthostatic hypotension in the ER. Unclear cause for patient's symptomatology today, but I do not find any life- threatening or sinister etiology at this time. Patient understands the uncertainty of thediagnosis and that certain pathologies can take time to declare itself. Given reassuring work-up thus far, with reasonable clinical certainty I feel that the patient is safe to discharge home. Certainly anxiety versus medication reaction may be cause for his symptoms. Given his palpitations, outpatient Zio patch was ordered and patient agrees with this. He will follow-up closely with his psychiatristregarding today's visit and to review his medications. I discussed the signs symptoms that should prompt her to return the ER. All questions were answered prior to discharge. Ziopatch was reviewed by Dr. Porter who states it was SVT with an aberrancy & pt should see EP but does not need to go to ED & ok to call on Tuesday. Pt scheduled w/ Dr. Darby 12/25/20. Will call PCP & pt on Tuesday with results & recommendations.Shahab RN NE INSPECTOR documented in this encounter Plan of Treatment Upcoming Encounters Date Type Specialty Care Team Description 11/04/2022 Office Visit Internal Medicine Marcy Ricketts APRN FISH CUTTER [address] [place], [place] [address] (Wo rk) documented as of this encounter Visit Diagnoses Not on filedocumented in this encounter Additional Health Concerns Assessment Noted Time PHQ-9 Depression Total Score: 16 04/18/2019 11:20 AM C DT documented as of this encounter Care Teams Stem Roller Or Crusher Operator Relationship Specialty Start Date End Date Annalisa Silva, WET ROASTER PCP - General Nurse Practitioner - Adult 04/11/19 [address] [place], [place] [address] Marcy Ricketts, Assigned PCP 10/05/20 01/03/21 SUPERVISOR SCENIC ARTS FISH CUTTER [address] [place], [place] [phone] documented as of this encounter
--- OUTSIDE RECORDS SUMMARY | 2022-09-26 20:23 | XMS_ITS | Encounter Summary ---
:1995 Author Organization [place] Address [facility] [place] [address] Care Team Providers Name Role Phone Annalisa Silva COLOR PRINT INSPECTOR Unavailable Annalisa Silva COLOR PRINT INSPECTOR Primary Care Provider [phone] Encounter Details Date Type Department Care Team Description 09/19/2020 Travel Social History Tobacco Use Types Packs/Day [...] in contact with Yes 09/19/2020 2:25 PM SCHOOL COOK someone who was confirmed or suspected to have Coronavirus / COVID-19? documented as of this encounter Plan of Treatment Upcoming Encounters Date Type Specialty Care Team Description 11/04/2022 Office Visit Internal Medicine Marcy Ricketts APRN PACKAGING ASSOCIATE [address] [place], [place] [address] (Wo rk) documented as of this encounter Visit Diagnoses Not on filedocumented in this encounter Additional Health Concerns Assessment Noted Time PHQ-9 Depression Total Score: 16 04/18/2019 11:20 AM C DT documented as of this encounter Care Teams Reducing Salon Attendant Relationship Specialty Start Date End Date Annalisa Silva NP PCP - General Nurse Practitioner - Adult 04/11/19 [address] [place], [place] [address] Annalisa Silva NP Assigned PCP 11/26/18 10/04/20 [address] [place] [address] documented as of this encounter
--- OUTSIDE RECORDS SUMMARY | 2022-09-26 20:23 | XMS_ITS | Encounter Summary ---
:1995 Author Organization [place] Address [address] [place] [address] Care Team Providers Name Role Phone Annalisa Silva STATIONARY ENGINEER REFRIGERATION Primary Care Provider [phone] Marcy Ricketts APRN EVALUATOR TRANSFER STUDENTS Unavailable [phone] Encounter Details Date Type Department Care Team Description 12/25/2020 Orders Only [facility] Vivian Darby MD Encounter for [facility] [place] [address] screening for other [address] [facility] [address] viral diseases [facility] [address] [place] [address] [place] [address] Social History Tobacco Use Types Packs/Day [...] with No / Unsure 12/25/2020 1:17 PM BAIL BOND AGENT someone who was confirmed or suspected to have Coronavirus / COVID-19? documented as of this encounter Plan of Treatment Upcoming Encounters Date Type Specialty Care Team Description 11/04/2022 Office Visit Internal Medicine Marcy Ricketts, CLAUDIO EVALUATOR TRANSFER STUDENTS [address] [place], [place] [address] (Wo rk) documented as of this encounter Results Asymptomatic COVID-19 Virus (Coronavirus) by PCR (12/29/2020 11:50 AM BAIL BOND AGENT) Component Value Ref Test Analysis Performed At [facility] Range Method Time Signature COVID-19 Nasopharyngeal 12/29/2020 [place] Virus PCR to 11:55 AM [facility] Source COVID-19 Test received-See 12/29/2020 INFECTIOUS Virus PCR to reflex to IDDL 2:09 PM BAIL BOND AGENT DISEASES [facility] [place] - test SARS CoV2 DIAGNOSTIC Result (COVID-19) Virus LABORATORY, RT-PCR [facility] Specimen (Source) Anatomical Collection Method Collection Time Re ceived Time Location / / Volume Laterality Specimen from 12/29/2020 11:50 12/29/2020 nasopharyngeal AM BAIL BOND AGENT 11:51 AM BAIL BOND AGENT structure (specimen) Vivian Darby MD LAB - MICRO GENERAL ORDERABL ES Performing Organization Address City/State/ZIP Code Phon e Number INFECTIOUS DISEASES [address] [place] [address] DIAGNOSTIC LABORATORY, [facility] [address] [place], [place] [address] [facility] [phone] documented in this encounter Visit Diagnoses Diagnosis Encounter for screening for other viral diseases documented in this encounter Additional Health Concerns Assessment Noted Time PHQ-9 Depression Total Score: 16 04/18/2019 11:20 AM C DT documented as of this encounter Care Teams Credit Verifier Relationship Specialty Start Date End Date Annalisa Silva, BETTY PCP - General Nurse Practitioner - Adult 04/11/19 [address] [place] [address] Marcy Ricketts, Assigned PCP 10/05/20 01/03/21 SOIL BIOLOGY TEACHER EVALUATOR TRANSFER STUDENTS [address] [place] [address] documented as of this encounter
--- OUTSIDE RECORDS SUMMARY | 2022-09-26 20:23 | XMS_ITS | Encounter Summary ---
:1995 Author Organization [place] Address [facility] [place] [address] Care Team Providers Name Role Phone Annalisa Silva CRACKLING PRESS OPERATOR Unavailable Annalisa iSlva CRACKLING PRESS OPERATOR Primary Care Provider [phone] Encounter Details Date Type Department Care Team Description 04/18/2019 Travel Social History Tobacco Use Types Packs/Day [...] Office Visit Internal Medicine Marcy Ricketts APRN VALVE REPAIRER RECLAMATION [address] [place], [place] [address] (Wo rk) documented as of this encounter Visit Diagnoses Not on filedocumented in this encounter Additional Health Concerns Assessment Noted Time PHQ-9 Depression Total Score: 16 04/18/2019 11:20 AM C DT documented as of this encounter Care Teams Tablet Coater Relationship Specialty Start Date End Date Annalisa Silva NP PCP - General Nurse Practitioner - Adult 04/11/19 [address] [place], [place] [id number] Annalisa Silva, BETTY Assigned PCP 11/26/18 10/04/20 [address] [place], [place] [id number] documented as of this encounter
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
[2022-09-26 20:24] LABS: Slide Review Reflex No
--- OUTSIDE RECORDS SUMMARY | 2022-09-26 20:24 | XMS_ITS | Encounter Summary ---
:1995 Author Organization [place] Address [address] [place] [address] Care Team Providers Name Role Phone Annalisa Silva NP Primary Care Provider [phone] Annalisa Silva APPEALS SPECIALIST Unavailable Reason for Visit Reason Comments Pre-Op Exam septoplasty on [facility]. Encounter Details Date Type Department Care Team Description 02/28/2019 Office Visit [facility] Ananlisa Silva Preop neral Clinic Meghan Yousif NP physical exam [address] [place] [address] (Primary Dx) [place] [address] [phone] Social History Tobacco Use Types Packs/Day Years [...] Sign Reading Time Taken Comments Blood Pressure 122/82 02/28/2019 9:29 AM CDT Pulse 50 02/28/2019 9:29 AM CDT Temperature 36.4 ??C (97.5 ??F) 02/28/2019 9:29 AM CDT Respiratory Rate 16 02/28/2019 9:29 AM CDT Oxygen Saturation 99% 02/28/2019 9:29 AM CDT Inhaled Oxygen Concentration - - Weight 116.9 kg (257 lb 12.8 oz) 02/28/2019 9:29 AM CDT Height 188 cm (6' 2) 02/28/2019 9:29 AM CDT Body Mass Index 33.1 02/28/2019 9:29 AM CDT documented in this encounter Progress Notes Annalisa Silva, BETTY - 02/28/2019 9:20 AM CDT [address] [address] Dept: [phone] PRE-OP EVALUATION: Today's date: 02/28/2019 Seamus Barnes (: 1995) presents for pre-operative evaluation assessment as requested byDr. Sarkar. He requires evaluation and anesthesia risk assessment prior to undergoing surgery/procedure for treatment of septoplasty . Fax number for surgical facility: [facility] [phone] Primary Physician: Annalisa Silva Type of Anesthesia Anticipated: General Patient has a Health Care Directive or Living Will: NO Preop Questions 02/28/2019 Who is doing your surgery? Dr Amarjit Kinsey What are you having done? Turbinite shrinkage and Septum realignment Date of Surgery/Procedure: Mar 23 2019 1. Do you have a history of Heart attack, stroke, stent, coronary bypass surgery, or other heart surgery? No 2. Do you ever have any pain or discomfort in your chest? No 3. Do you have a history of Heart Failure? No 4. Are you troubled by shortness of breath when: walking on a level surface, or up a slight hill, orat night? No 5. Do you currently have a cold, bronchitis or other respiratory infection? No 6. Do you have a cough, shortness of breath, or wheezing? No 7. Do you sometimes get pains in the calves of your legs when you walk? No 8. Do you or anyone in your family have previous history of blood clots? UNKNOWN - GF 9. Do you or does anyone in your family have a serious bleeding problem such as prolonged bleeding following surgeries or cuts? No 10. Have you ever had problems with anemia or been told to take iron pills? No 11. Have you had any abnormal blood loss such as black, tarry or bloody stools? No 12. Have you ever had a blood transfusion? No 13. Have you or any of your relatives ever had problems with anesthesia? No 14. Do you have sleep apnea, excessive snoring or daytime drowsiness? YES - normal sleep study 15. Do you have any prosthetic heart valves? No 16. Do you have prosthetic joints? No HPI: HPI related to upcoming procedure: rhinoplasty See problem list for active medical problems. Problems all longstanding and stable, except as noted/documented. See ROS for pertinent symptoms related to these conditions. . MEDICAL HISTORY: Patient Active Problem List Diagnosis Date Noted ? ? Nausea & vomiting 03/23/2018 Priority: Medium ??? Anxiety disorder Priority: Medium ??? Obesity 05/30/2013 Priority: Medium Past Medical History: Diagnosis Date ??? Anxiety disorder Past Surgical History: Procedure Laterality Date ??? ORTHOPEDIC SURGERY 07/29/16 rt knee Current Outpatient Medications Medication Sig Dispense Refill ??? Multiple Vitamins-Minerals (RALF MULTI MEN PO) Take 1 tablet by mouth daily ??? Winslow-3 Fatty Acids (FISH OIL OMEGA-3 PO) Take 1 capsule by mouth daily OTC products: None, except as noted above Allergies Allergen Reactions ??? Minocycline Itching and Rash Latex Allergy: NO Social History Tobacco Use ??? Smoking status: Never Smoker ??? Smokeless tobacco: Never Used ??? Tobacco comment: dad smokes outside Substance Use Topics ??? Alcohol use: Yes Drinks per session: 3 or 4 Binge frequency: Weekly Comment: occasional History Drug Use No REVIEW OF SYSTEMS: CONSTITUTIONAL: NEGATIVE for fever, chills, change in weight INTEGUMENTARY/SKIN: NEGATIVE for worrisome rashes, moles or lesions ENT/MOUTH: NEGATIVE for ear, mouth and throat problems RESP: NEGATIVE for significant cough or SOB CV: NEGATIVE for chest pain, palpitations or peripheral edema GI: NEGATIVE for nausea, abdominal pain, heartburn, or change in bowel habits : NEGATIVE for frequency, dysuria, or hematuria MUSCULOSKELETAL: NEGATIVE for significant arthralgias or myalgia NEURO: NEGATIVE for weakness, dizziness or paresthesias ENDOCRINE: NEGATIVE for temperature intolerance, skin/hair changes HEME: NEGATIVE for bleeding problems PSYCHIATRIC: NEGATIVE for changes in mood or affect EXAM: BP 122/82 (BP Location: Right arm, Patient Position: Sitting, Cuff Size: Adult Large) Pulse 50 Temp 97.5 ??F (36.4 ??C) (Oral) Resp 16 Ht 1.88 m (6' 2) Wt 116.9 kg (257 lb 12.8 oz) SpO2 99% BMI 33.10 kg/m?? GENERAL APPEARANCE: healthy, alert and no distress NECK: no adenopathy, no asymmetry, masses, or scars and thyroid normal to palpation RESP: lungs clear to auscultation - no rales, rhonchi or wheezes CV: bradycardia ABDOMEN: soft, nontender, no HSM or masses and bowel sounds normal MS: extremities normal- no gross deformities noted, no evidence of inflammation in joints, FROM in all extremities. SKIN: no suspicious lesions or rashes NEURO: Normal strength and tone, sensory exam grossly normal, mentation intact and speech normal PSYCH: mentation appears normal. and affect normal/bright DIAGNOSTICS: EKG: Not indicated due to non-vascular surgery and low risk of event (age <65 and without cardiacrisk factors) Recent Labs Lab Test 11/15/18 1003 03/23/18 0600 HGB 15.5 17.0 PLT 220 220 NA 137 133 POTASSIUM 4.0 3.8 CR 1.04 1.18 IMPRESSION: Reason for surgery/procedure: septoplassty The proposed surgical procedure is considered INTERMEDIATE risk. REVISED CARDIAC RISK INDEX The patient has the following serious cardiovascular risks for perioperative complications such as (WA, PE, VFib and 3?? AV Block): No serious cardiac risks INTERPRETATION: 0 risks: Class I (very low risk - 0.4% complication rate) The patient has the following additional risks for perioperative complications: No identified additional risks (Z01.818) Preop general physical exam (primary encounter diagnosis) Comment: Plan: CBC with platelets, Basic metabolic panel RECOMMENDATIONS: --Consult hospital rounder / IM to assist post-op medical management --Patient is to take all scheduled medications on the day of surgery EXCEPT for modifications listedbelow. APPROVAL GIVEN to proceed with proposed procedure, without further diagnostic evaluation Signed Electronically by: Annalisa Silva NP Copy of this evaluation report is provided to requesting physician. [place] Preop Guidelines Revised Cardiac Risk Index documented in this encounter Nursing Notes Lexy Henry MA - 02/28/2019 9:20 AM CDT septoplasty on [facility]. documented in this encounter Plan of Treatment Upcoming Encounters Date Type Specialty Care Team Description 11/04/2022 Office Visit Internal Medicine Marcy Ricketts, CLAUDIO CLINICAL TRIAL ASSOCIATE [address] [place], [place] [address] (Wo rk) documented as of this encounter Procedures Procedure Name Priority Date/Time Associated Diagnosis Comme nts BASIC METABOLIC Routine 02/28/2019 9:48 AM Preop general Resul ts for this PANEL CDT physical exam procedure are in the results section. CBC WITH PLATELETS Routine 02/28/2019 9:48 AM Preop general Re sults for this CDT physical exam procedure are in the results section. documented in this encounter Results Basic metabolic panel (02/28/2019 9:48 AM CDT) P athologist Signature Sodium 142 133 - 144 03/01/2019 [facility] mmol/L 11:[address] [facility] Potassium 4.6 3.4 - 5.3 03/01/2019 [facility] mmol/L 11:[address] [facility] Chloride 108 94 - 109 03/01/2019 [facility] mmol/L 11:[address] [facility] Carbon Dioxide 27 20 - 32 03/01/2019 [place] mmol/L 11:26 AM CDT [facility] Anion Gap 7 3 - 14 03/01/2019 [place] mmol/L 11:26 AM T [facility] Glucose 89 70 - 99 03/01/2019 [place] mg/dL 11:[address] [facility] Comment: Fasting specimen Urea Nitrogen 19 7 - 30 mg/dL 03/01/2019 11:26 AM T [facility] Creatinine 1.17 0.66 - 1.25 mg/dL 03/01/2019 11:26 AM C DT [facility] GFR Estimate 87 >60 03/01/2019 11:26 AM CDT DONNYJose Elias [facility] mL/min/{1.73_m2} HOSPITAL Comment: Non GFR Calc Starting 10/17/2018, serum creatinine ba sed estimated GFR (eGFR) will be calculated using the Chronic Kidney Dise [facility] Epidemiology Collaboration (CKD-EPI) equation. GFR Estimate If >90 >60 mL/min/{1.73_m2} 03/01/2019 11:26 AM [facility] Comment: GFR Calc Starting 10/17/2018, serum creatinine ba sed estimated GFR (eGFR) will be calculated using the Chronic Kidney Dise [facility] Epidemiology Collaboration (CKD-EPI) equation. Calcium 9.5 8.5 - 10.1 mg/dL 03/01/2019 11:26 AM T [facility] Specimen Anatomical Collection Method Collection Time Receive d Time (Source) Location / / Volume Laterality Blood specimen 02/28/2019 9:48 AM 019 9:53 (specimen) CDT AM CDT Annalisa Silva NP LAB - BLOOD ORDERABLES Performing Organization Address City/State/ZIP Code Phon e Number M [facility] [address] [address] [facility] [address] [place], [place] [address] [facility] [address] [address], [place] [phone] CBC with platelets (02/28/2019 9:48 AM CDT) athologist Signature WBC 6.6 4.0 - 11.0 02/28/2019 [place] 10e9/L 10:19 AM CDT [facility] RBC Count 4.69 4.4 - 5.9 02/28/2019 [place] 10e12/L 10:19 AM CDT [facility] Hemoglobin 15.1 13.3 - 02/28/2019 [place] 17.7 g/dL 10:19 AM CDT [facility] Hematocrit 45.6 40.0 - 02/28/2019 [place] 53.0 % 10:19 AM CDT [facility] MCV 97 78 - 100 02/28/2019 [place] fl 10:19 AM CDT [facility] MCH 32.2 26.5 - 02/28/2019 [place] 33.0 pg 10:19 AM CDT [facility] MCHC 33.1 31.5 - 02/28/2019 [place] 36.5 g/dL 10:19 AM CDT [facility] RDW 13.3 10.0 - 02/28/2019 [place] 15.0 % 10:19 AM CDT [facility] Platelet Count 203 150 - 450 02/28/2019 [place] 10e9/L 10:19 AM CDT [facility] Specimen Anatomical Collection Method Collection Time Receive d Time (Source) Location / / Volume Laterality Blood specimen 02/28/2019 9:48 AM 019 9:53 (specimen) CDT AM CDT Annalisa Silva NP LAB - BLOOD ORDERABLES Performing Organization Address City/State/ZIP Code Phon e Number [facility] [address] [place], [place] [address] [address] documented in this encounter Visit Diagnoses Diagnosis Preop general physical exam - Primary Other specified pre-operative examinatio n documented in this encounter Additional Health Concerns Assessment Noted Time PHQ-9 Depression Total Score: 5 09/08/2016 7:22 AM RESOURCE EFFICIENCY MANAGER documented as of this encounter Care Teams Electric Motor Assembler And Tester Relationship Specialty Start Date End Date Annalisa Silva NP PCP - General Nurse Practitioner - Adult 08/26/15 [address] [place] [address] Annalisa Silva NP Assigned PCP 11/26/18 10/04/20 [address] [place] [address] documented as of this encounter
--- OUTSIDE RECORDS SUMMARY | 2022-09-26 20:24 | XMS_ITS | Encounter Summary ---
:1995 Author Organization [place] Address [facility] [place] [address] Care Team Providers Name Role Phone Annalisa Silva CARBON COATER MACHINE OPERATOR Unavailable Annalisa Silva CARBON COATER MACHINE OPERATOR Primary Care Provider [phone] Reason for Visit Reason Onset Date Comments Forms 04/17/2019 Devan Encounter Details Date Type Department Care Team Description 04/17/2019 Telephone [facility] Annalisa Silva, Forms [facility] [place] CARBON COATER MACHINE OPERATOR [address] [place] [address] [place], [place] [phone] (Wo rk) [address] [phone] Social History Tobacco Use Types Packs/Day Years [...] Telephone Encounter - Lexy Rachel MA - 04/18/2019 7:36 AM CDT Form faxed back to Jorge RACHEL CMA Telephone Encounter - SilviopatriciaTerricy - 04/17/2019 7:49 AM CDT Depression,anxiety and trauma intensive outpatient program order received via fax. Form in your mailbox to be signed. documented in this encounter Plan of Treatment Upcoming Encounters Date Type Specialty Care Team Description 11/04/2022 Office Visit Internal Medicine Marcy Ricketts APRN AUGER OPERATOR [address] [place], [place] [address] (Wo rk) documented as of this encounter Visit Diagnoses Not on filedocumented in this encounter Additional Health Concerns Assessment Noted Time PHQ-9 Depression Total Score: 17 04/03/2019 10:15 AM C DT documented as of this encounter Care Teams Gps Navigation Installer Relationship Specialty Start Date End Date Annalisa Silva NP PCP - General Nurse Practitioner - Adult 04/11/19 [address] [employer] [place] [address] Annalisa Silva NP Assigned PCP 11/26/18 10/04/20 [address] [employer] [place] [address] documented as of this encounter
--- OUTSIDE RECORDS SUMMARY | 2022-09-26 20:24 | XMS_ITS | Encounter Summary ---
:1995 Author Organization [place] Address [facility] [place] [address] Care Team Providers Name Role Phone Annalisa Silva NEWS WIRE PHOTO OPERATOR Primary Care Provider [phone] Annalisa Silva NEWS WIRE PHOTO OPERATOR Unavailable Encounter Details Date Type Department Care Team Description 02/28/2019 Travel Social History Tobacco Use Types Packs/Day [...] Office Visit Internal Medicine Marcy Ricketts APRN COMMISSIONER OF RELOCATION SERVICES [address] [place], [place] [address] (Wo rk) documented as of this encounter Visit Diagnoses Not on filedocumented in this encounter Additional Health Concerns Assessment Noted Time PHQ-9 Depression Total Score: 5 09/08/2016 7:22 AM CANE FLUME WATCHMAN documented as of this encounter Care Teams Area Cleaner Relationship Specialty Start Date End Date Annalisa Silva NP PCP - General Nurse Practitioner - Adult 08/26/15 [address] [place], [place] [phone] Annalisa Silva NP Assigned PCP 11/26/18 10/04/20 [address] [place], [place] [id number] documented as of this encounter
--- OUTSIDE RECORDS SUMMARY | 2022-09-26 20:24 | XMS_ITS | Encounter Summary ---
:1995 Author Organization [place] Address [facility] [place] [address] Care Team Providers Name Role Phone Annalisa Silav HOME BUILDER Primary Care Provider [phone] Annalisa Silva HOME BUILDER Unavailable Encounter Details Date Type Department Care Team Description 04/03/2019 Travel Social History Tobacco Use Types Packs/Day [...] Office Visit Internal Medicine Marcy Ricketts APRN MARRIAGE PERFORMER [address] [place], [place] [address] (Wo rk) documented as of this encounter Visit Diagnoses Not on filedocumented in this encounter Additional Health Concerns Assessment Noted Time PHQ-9 Depression Total Score: 17 04/03/2019 10:15 AM C DT documented as of this encounter Care Teams Production Control Technologist Relationship Specialty Start Date End Date Annalisa Silva NP PCP - General Nurse Practitioner - Adult 08/26/15 [address] [place], [place] [id number] Annalisa Silva, BETTY Assigned PCP 11/26/18 10/04/20 [address] [place], [place] [phone] documented as of this encounter
--- OUTSIDE RECORDS SUMMARY | 2022-09-26 20:24 | XMS_ITS | Encounter Summary ---
:1995 Author Organization [place] Address [address] [place] [address] Care Team Providers Name Role Phone Annalisa Silva DISPLAY DESIGNER Primary Care Provider [phone] Annalisa Silva DISPLAY DESIGNER Unavailable Annalisa Silva NP Primary Care Provider [phone] Reason for Visit Reason Onset Date Comments Refill Request 03/05/2019 Flodontaee Encounter Details Date Type Department Care Team Description 03/05/2019 Telephone [facility] An[facility] BETTY Yousif (Flonase) [address] [place] [address] [place], [place] [phone] (Wo rk) [address] [phone] Social History Tobacco Use Types Packs/Day Years [...] this encounter Miscellaneous Notes Telephone Encounter - Bailey Britt - 03/05/2019 2:59 PM CDT Leticia Last Written Prescription Date: 05/01/18 Last Fill Quantity: 3, # refills: 1 Last Office Visit: 02/28/19 Future Office visit: Routing refill request to provider for review/approval because: Drug not active on patient's medication list documented in this encounter Plan of Treatment Upcoming Encounters Date Type Specialty Care Team Description 11/04/2022 Office Visit Internal Medicine Marcy Ricketts, CLAUDIO EVENT SALES ASSISTANT [address] [place], [place] [address] (Wo rk) documented as of this encounter Visit Diagnoses Diagnosis Seasonal allergic rhinitis due to pollen - Primary documented in this encounter Additional Health Concerns Assessment Noted Time PHQ-9 Depression Total Score: 5 09/08/2016 7:22 AM DIRECTOR TRADE documented as of this encounter Care Teams Professional Skateboarder Relationship Specialty Start Date End Date Annalisa Silva NP PCP - General Nurse Practitioner - Adult 08/26/15 [address] [place], [place] [address] Annalisa Silva NP PCP - General Nurse Practitioner - Adult 04/11/19 [address] [place] [address] Annalisa iSlva NP Assigned PCP 11/26/18 10/04/20 [address] [place] [address] documented as of this encounter
--- OUTSIDE RECORDS SUMMARY | 2022-09-26 20:24 | XMS_ITS | Encounter Summary ---
:1995 Author Organization [place] Address [address] [place] [address] Care Team Providers Name Role Phone Annalisa Silva DIGITAL COMPOSER Primary Care Provider [phone] Annalisa Silva DIGITAL COMPOSER Unavailable Annalisa Silva DIGITAL COMPOSER Primary Care Provider [phone] Reason for Visit Reason Comments Suicidal Encounter Details Date Type Department Care Team Description 04/10/2019 - Emergency [facility] Janice Suarez MD Suicidal ideation; 04/11/2019 [facility] Emergency EMERGENCY PHYSICIANS Dep ression, unspecified depression type; Dept [place] Anxiety [address] [facility] [address] [place], [place] [id number] [phone] Social History Tobacco Use Types Packs/Day Years [...] Sign Reading Time Taken Comments Blood Pressure 156/96 04/10/2019 10:37 PM CDT Pulse 48 04/10/2019 10:37 PM CDT Temperature 37.4 ??C (99.4 ??F) 04/10/2019 10:37 PM CDT Respiratory Rate 20 04/10/2019 10:37 PM CDT Oxygen Saturation 96% 04/10/2019 10:37 PM CDT Inhaled Oxygen Concentration - - Weight 108.9 kg (240 lb) 04/10/2019 10:37 PM CDT Height - - Body Mass Index 30.81 04/04/2019 7:48 PM CDT documented in this encounter Medications at Time of Discharge Medication Sig Dispensed Refills Start Date End Date hydrOXYzine (ATARAX) 25 Take 1-2 tablets 60 tablet 1 2018 MG tabletIndications: (25-50 mg) by mouth Generalized anxiety every 4 hours as disorder needed for anxiety Multiple Take 1 tablet by 0 Vitamins-Minerals (RALF mouth daily MULTI MEN PO) [place]-3 Fatty Acids Take 1 capsule by 0 (FISH OIL OMEGA-3 PO) mouth daily traZODone (DESYREL) 50 One or two at night 60 tablet 1 03/31 MG tabletIndications: as needed Generalized anxiety disorder busPIRone (BUSPAR) 10 MG Take 1 tablet (10 60 tablet 1 03/3105/28/2021 tabletIndications: mg) by mouth 2 times Generalized anxiety daily disorder LORazepam (ATIVAN) 1 MG Take 1 tablet (1 mg) 40 tablet 0 04/16/2019 tabletIndications: by mouth every 6 Generalized anxiety hours as needed for disorder anxiety venlafaxine (EFFEXOR-XR) Take 1 capsule (150 30 capsule 1 12/29/2020 150 MG 24 hr mg) by mouth daily capsuleIndications: Generalized anxiety disorder venlafaxine (EFFEXOR-XR) Take 1 capsule (75 30 capsule 1 01/201904/15/2019 75 MG 24 hr mg) by mouth daily capsuleIndications: Generalized anxiety disorder, Current moderate episode of major depressive disorder without prior episode (H) documented as of this encounter ED Notes Navneet Ann LSW - 04/10/2019 11:58 PM CDT Clinical given to Central Intake, they will call back with placement info ava. YOU Jose Manuel Orlando RN - 04/10/2019 10:43 PM CDT Pt presents with mom and girlfriend, both present in room. Jose Manuel Orlando RN - 04/10/2019 10:36 PM CDT Pt with increasing suicidal thoughts, no specific plan. Has hx of same and has been attempting outpatient therapy. Tearful in traige. Last took home ativan at 130 this afternoon. Janice Suarez MD - 04/10/2019 10:34 PM CDT History Chief Complaint: Suicidal HPI: The history is provided by the patient. Seamus Barnes is a 24 year old male with history of anxiety and PTSD who presents for evaluation of suicidal ideation. The patient has been seen in the ED 3 times in the past 4 weeks for mental health evaluation. He is currently taking Effexor and Ativan, and he was recently started in an intensive outpatient program that meets 4 times per week through [facility]. However, the patient states that over the past 3-4 days he has had increasing anxiety and suicidal thoughts. Thepatient denies a plan, but is concerned about his safety at home. He states there are guns in his house. He is requesting inpatient admission. He denies hallucinations. He denies alcohol or drug use tonight and states he has anything in weeks. Of note, he states his resting heart rate is normally in the 40s and he has no symptoms of lightheadedness. Allergies: Minocycline Medications: Effexor Ativan Past Medical History: Anxiety disorder PTSD Past Surgical History: Nose surgery Right knee ortho surgery Family History: History reviewed. No pertinent family history. Social History: The patient is accompanied to the ED by mother and girlfriend PCP: Annalisa Silva Marital Status: Single Smoking status: never smoker Alcohol use: positive, 3-4 drinks per week, none for the past several weeks. Review of Systems Psychiatric/Behavioral: Positive for suicidal ideas. Negative for hallucinations and self-injury. All other systems reviewed and are negative. Physical Exam Patient Vitals for the past 24 hrs: BP Temp Temp src Pulse Resp SpO2 Weight 04/10/19 2237 (!) 156/96 99.4 ??F (37.4 ??C) Temporal (!) 48 20 96 % 108.9 kg (240 lb) Physical Exam General: Well-nourished Eyes: PERRL, conjunctivae pink no scleral icterus or conjunctival injection ENT: Moist mucus membranes, posterior oropharynx clear without erythema or exudates Respiratory: Lungs clear to auscultation bilaterally, no crackles/rubs/wheezes. Good air movement CV: Normal rate and rhythm, no murmurs/rubs/gallops GI: Abdomen soft and non-distended. Normoactive BS. No tenderness, guarding or rebound Skin: Warm, dry. No rashes or petechiae. No cutting uriarte Musculoskeletal: No peripheral edema or calf tenderness Neuro: Alert and oriented to person/place/time Physical appearance, attire: Appears stated age. Hygiene well groomed. Eye contact at examiner poor.Speech regular, speech volume regular, speech quality fluid. Cognitive, perceptual reality based. Cognition, memory intact, judgment intact, insight intact. Orientation to time, place, person and situation. Thought logical. Hallucinations: None. General behavioral tone: Cooperative. Psychomotor activity: No problem noted. Mood sad and anxious, affect tearful. Emergency Department Course Laboratory: Drug abuse screen 77 urine: Negative Emergency Department Course: Past medical records, nursing notes, and vitals reviewed. 2300: I performed an exam of the patient and obtained history, as documented above. Findings and plan explained to the Patient. Patient [facility] via EMS. Accepting Physician: Dr. Esparza will admit the patient to a monitored bed for further monitoring, evaluation, and treatment. Impression & Plan Medical Decision Making: Seamus Barnes is a 24 year old male who presents for evaluation of suicidal ideation in the setting of escalating anxiety and depression. The patient has a history of previous psychiatric illness and at this point appears decompensated and failing outpatient intensive treatment. He wishes to be admitted. There are no concerns for or signs at this point of suicide attempt or ingestion, no concerning findings on the remainder of physical exam. DEC saw the patient and was in agreement. We were able to secure a bed for him at [facility] and he was transferred via EMS on an RIAN for voluntary admission. Diagnosis: ICD-10-CM 1. Suicidal ideation R45.851 2. Depression, unspecified depression type F32.9 3. Anxiety F41.9 Disposition: Transferred to [facility] Discharge Medications: Medication List There are no discharge medications for this visit. Juliette Moctezuma am serving as a scribe at 11:00 PM on 04/11/2019 to document services personally performed by Janice Suarez MD based on my observations and the provider's statements to me. Juliette Gupta 04/10/2019 [facility] EMERGENCY DEPARTMENT Janice Suarez MD 04/11/19 0221 documented in this encounter Plan of Treatment Upcoming Encounters Date Type Specialty Care Team Description 11/04/2022 Office Visit Internal Medicine Marcy Ricketts APRN AIX ARCHITECT [address] [place] [address] (Wo rk) documented as of this encounter Procedures Procedure Name Priority Date/Time Associated Diagnosis Comme nts DRUG ABUSE SCREEN STAT 04/11/2019 12:14 AM Res ults for this 77 URINE (FL, RH, CDT procedure are in SH) the results section. documented in this encounter Results Drug abuse screen 77 urine (04/11/2019 12:14 AM CDT) [facility] Method Time Signature Amphetamine Qual Negative NEG^Negati 04/11/2019 [place] Urine ve 12:42 AM CDT [facility] Comment: Cutoff for a negative amphetami ne is 500 ng/mL or less. Barbiturates Qual Negative NEG^Negative 04/11/2019 12:41 AM [facility] Urine CDT [facility] Comment: Cutoff for a negative barbitura te is 200 ng/mL or less. Benzodiazepine Qual Negative NEG^Negative 04/11/2019 12:41 AM [facility] Comment: Cutoff for a negative benzodiaz epine is 200 ng/mL or less. Cannabinoids Qual Negative NEG^Negative 04/11/2019 12:41 AM [facility] Urine [facility] Comment: Cutoff for a negative cannabino id is 50 ng/mL or less. Cocaine Qual Urine Negative NEG^Negative 04/11/2019 12:41 A [facility] Comment: Cutoff for a negative cocaine i s 300 ng/mL or less. Opiates Qualitative Negative NEG^Negative 04/11/2019 12:41 AM [facility] Urine T [facility] Comment: Cutoff for a negative opiate is 300 ng/mL or less. PCP Qual Urine Negative NEG^Negative 04/11/2019 12:41 AM CD T [facility] Comment: Cutoff for a negative PCP is 25 ng/mL or less. Specimen Anatomical Collection Method Collection Time Receive d Time (Source) Location / / Volume Laterality Urine specimen URINE SPECIMEN 04/11/2019 12:14 019 (specimen) OBTAINED BY CLEAN AM CDT 12:21 AM C DT CATCH PROCEDURE / Unknown Janice Suarez MD LAB - URINE ORDERABLES Performing Organization Address City/State/ZIP Code Phon e Number M [facility] [address] [place], [place] [address] [address] [place] [address] [phone] [facility] [address] [place], [place] [address] [phone] documented in this encounter Visit Diagnoses Diagnosis Suicidal ideation Depression, unspecified depression type Anxiety Anxiety state, unspecified documented in this encounter Additional Health Concerns Assessment Noted Time PHQ-9 Depression Total Score: 17 04/03/2019 10:15 AM C DT documented as of this encounter Care Teams Methods And Procedures Analyst Relationship Specialty Start Date End Date Annalisa Silva NP PCP - General Nurse Practitioner - Adult 08/26/15 [address] [place] [address] Annalisa Silva NP PCP - General Nurse Practitioner - Adult 04/11/19 [address] [place], [place] [phone] Annalisa Silva, BETTY Assigned PCP 11/26/18 10/04/20 [address] [place] [phone] documented as of this encounter
--- OUTSIDE RECORDS SUMMARY | 2022-09-26 20:24 | XMS_ITS | Encounter Summary ---
:1995 Author Organization [place] Address [address] [place] [address] Care Team Providers Name Role Phone Annalisa Silva RADIATION OFFICER Unavailable Annalisa Silva NP Primary Care Provider [phone] Reason for Visit Reason Onset Date Comments Hospital F/U 04/16/2019 Generalized Anxiety Disorder Encounter Details Date Type Department Care Team Description [facility] Meghan Yousif NP (Generalized Anxiety [address] [place] [address] Disorder) [place] [address] [place], [place] [phone] (Wo rk) [address] [phone] Social History Tobacco Use Types Packs/Day Years [...] this encounter Miscellaneous Notes Telephone Encounter - Antonietta Ware RN - 04/16/2019 3:51 PM CDT ED for acute condition Discharge Protocol Hi, my name is Antonietta Ware, a registered nurse, and I am calling from [facility]. I am calling to follow up and see how things are going for you after your recent emergency visit. Tell me how you are doing now that you are home? Doing better at home, going to outpatient therapy and meeting with regular counselor weekly. Discharge Instructions Let's review your discharge instructions. What is/are the follow-up recommendations? Pt. Response: Follow up with PCP. He is going to see psychiatry to manage medications. Has an appointment with your primary care provider been scheduled? No (needed - schedule appointment and remind to bring meds). Scheduled follow-up appointment with Annalisa on 04/18/19. Medications Tell me what changed about your medicines when you discharged? Started Buspirone 10mg BID and Hydroxyzine 25mg PRN for anxiety attacks, increased Venlafaxine to 150 mg daily, stopped Lorazepam What questions do you have about your medications? None Call Summary What questions or concerns do you have about your recent visit and your follow- up care? none If you have questions or things don't continue to improve, we encourage you contact us through the main clinic number (give number). Even if the clinic is not open, triage nurses are available 23/05 tohelp you. We would like you to know that our clinic has extended hours (provide information). We also have urgent care (provide details on closest location and hours/contact info) Thank you for your time and take care! Telephone Encounter - Bailey Britt - 04/16/2019 8:42 AM CDT IP F/U Date: 04/15/19 Diagnosis: Generalized Anxiety Disorder Is patient active in care coordination? No Was patient in TCU? No documented in this encounter Plan of Treatment Upcoming Encounters Date Type Specialty Care Team Description 11/04/2022 Office Visit Internal Medicine Marcy Ricketts APRN FLAP MAKER [address] [place], [place] [address] (Wo rk) documented as of this encounter Visit Diagnoses Not on filedocumented in this encounter Additional Health Concerns Assessment Noted Time PHQ-9 Depression Total Score: 17 04/03/2019 10:15 AM C DT documented as of this encounter Care Teams Florist Relationship Specialty Start Date End Date Annalisa Silva NP PCP - General Nurse Practitioner - Adult 04/11/19 [address] [place] [address] Annalisa Silva NP Assigned PCP 11/26/18 10/04/20 [address] [place] [address] documented as of this encounter
--- OUTSIDE RECORDS SUMMARY | 2022-09-26 20:24 | XMS_ITS | Encounter Summary ---
:1995 Author Organization [place] Address [address] [place] [address] Care Team Providers Name Role Phone Annalisa Silva APPRENTICE STYLIST Unavailable Annalisa Silva NP Primary Care Provider [phone] Reason for Visit Reason Comments Hospital F/U [facility] on 04/11/19 Encounter Details Date Type Department Care Team Description 04/18/2019 Office Visit [facility] Annalisa Silva anxiety Clinic Meghan Yousif NP disorder (Primary Dx) [address] [place], [place] [id number] [phone] Social History Tobacco Use Types Packs/Day Years [...] Sign Reading Time Taken Comments Blood Pressure 116/62 04/18/2019 11:00 AM CDT Pulse 60 04/18/2019 11:00 AM CDT Temperature 36.6 ??C (97.8 ??F) 04/18/2019 11:00 AM CDT Respiratory Rate 16 04/18/2019 11:00 AM CDT Oxygen Saturation 99% 04/18/2019 11:00 AM CDT Inhaled Oxygen Concentration - - Weight 114 kg (251 lb 6.4 oz) 04/18/2019 11:00 AM CDT Height 188 cm (6' 2) 04/18/2019 11:00 AM CDT Body Mass Index 32.28 04/18/2019 11:00 AM CDT documented in this encounter Progress Notes Annalisa Silva, BETTY - 04/18/2019 10:40 AM CDT Subjective Seamus Barnes is a 24 year old male who presents to clinic today for the following health issues: HPI Abnormal Mood Symptoms ?? Duration: 04/11/19-04/15/19 inpatient psych facility ?? Description: Depression: YES Anxiety: YES Panic attacks: YES ?? Accompanying signs and symptoms: see PHQ-9 and JACKIE scores ?? History (similar episodes/previous evaluation): out patient therapy, is starting intense out pt program and seeing a psychiatrist. ?? Precipitating or alleviating factors: worsening depression ?? Therapies tried and outcome: Buspar (Buspirone) added, Effexor XR (Venafaxine) increased and hydroxyzine added Has moved in with girlfriends family. Quit his job to focus on his mental health issues Patient Active Problem List Diagnosis ??? Obesity [...] Take 1 tablet by mouth daily ??? Independence-3 Fatty Acids (FISH OIL OMEGA-3 PO) Take 1 capsule by mouth daily ??? traZODone (DESYREL) 50 MG tablet One or two at night as needed 60 tablet 1 ??? venlafaxine (EFFEXOR-XR) 150 MG 24 hr capsule Take 1 capsule (150 mg) by mouth daily 30 capsule 1 BP Readings from Last 3 Encounters: 04/18/19 116/62 04/15/19 127/79 04/10/19 (!) 156/96 Wt Readings from Last 3 Encounters: 04/18/19 114 kg (251 lb 6.4 oz) 04/15/19 110.9 kg (244 lb 7.8 oz) 04/10/19 108.9 kg (240 lb) Reviewed and updated as needed this visit by Provider Review of Systems ROS COMP: CONSTITUTIONAL: NEGATIVE for fever, chills, change in weight ENT/MOUTH: NEGATIVE for ear, mouth and throat problems RESP: NEGATIVE for significant cough or SOB CV: NEGATIVE for chest pain, palpitations or peripheral edema Objective BP 116/62 (BP Location: Right arm, Patient Position: Sitting, Cuff Size: Adult Large) Pulse 60 Temp 97.8 ??F (36.6 ??C) (Oral) Resp 16 Ht 1.88 m (6' 2) Wt 114 kg (251 lb 6.4 oz) SpO2 99% BMI 32.28 kg/m?? Body mass index is 32.28 kg/m??. Physical Exam GENERAL: healthy, alert and no distress PSYCH: mentation appears normal, affect normal/bright, anxious, judgement and insight intact and appearance well groomed Assessment & Plan (F41.1) Generalized anxiety disorder (primary encounter diagnosis) Comment: Plan: The current medical regimen is effective; continue present plan and medications. Continue intensive out pt therapy and psychiatry f/u Call with any concerns BMI: Estimated body mass index is 32.28 kg/m?? as calculated from the following: Height as of this encounter: 1.88 m (6' 2). Weight as of this encounter: 114 kg (251 lb 6.4 oz). Annalisa Silva NP [facility] documented in this encounter Nursing Notes Lexy Henry MA - 04/18/2019 10:40 AM CDT [facility] on 04/11/19 documented in this encounter Plan of Treatment Upcoming Encounters Date Type Specialty Care Team Description 11/04/2022 Office Visit Internal Medicine Marcy Ricketts APRN INSPECTOR OPTICAL INSTRUMENT [address] [place], [place] [address] (Wo rk) documented as of this encounter Visit Diagnoses Diagnosis Generalized anxiety disorder - Primary documented in this encounter Additional Health Concerns Assessment Noted Time PHQ-9 Depression Total Score: 16 04/18/2019 11:20 AM C DT documented as of this encounter Care Teams Landscape Drafter Relationship Specialty Start Date End Date Annalisa Silva NP PCP - General Nurse Practitioner - Adult 04/11/19 [address] [place] [address] Annalisa Silva NP Assigned PCP 11/26/18 10/04/20 [address] [place] [address] documented as of this encounter
--- OUTSIDE RECORDS SUMMARY | 2022-09-26 20:24 | XMS_ITS | Encounter Summary ---
:1995 Author Organization [place] Address [facility] [place] [address] Care Team Providers Name Role Phone Annalisa Silva CONTRACT MANAGER Primary Care Provider [phone] Annalisa Silva CONTRACT MANAGER Unavailable Reason for Visit Reason Comments Panic Attack Encounter Details Date Type Department Care Team Description 03/29/2019 Emergency [facility] Senthil Griffith MD Anxiety; Emergency Dept [facility] Panic attack [address] [facility] [address] [place] [address] [place] [address] (Wo rk) Social History Tobacco Use Types [...] Sign Reading Time Taken Comments Blood Pressure 149/92 03/29/2019 10:53 PM CDT Pulse 97 03/29/2019 10:53 PM CDT Temperature 36.7 ??C (98 ??F) 03/29/2019 10:53 PM CDT Respiratory Rate 18 03/29/2019 10:53 PM CDT Oxygen Saturation 100% 03/29/2019 10:53 PM CDT Inhaled Oxygen Concentration - - Weight - - Height - - Body Mass Index - - documented in this encounter Discharge Instructions AttachmentsThe following attachments cannot be sent through Care Everywhere. Panic Attack (Malawian)documented in this encounter Medications at Time of Discharge Medication Sig Dispensed Refills Start Date End Date Multiple Take 1 tablet by 0 Vitamins-Minerals (RALF mouth daily MULTI MEN PO) [place]-3 Fatty Acids Take 1 capsule by 0 (FISH OIL OMEGA-3 PO) mouth daily fluticasone (FLONASE) 50 [place] 1 spray into 9.9 g 1 03/201904/03/2019 MCG/ACT nasal both nostrils daily sprayIndications: Seasonal allergic rhinitis due to pollen LORazepam (ATIVAN) 0.5 Take 0.5-1 tablets 10 tablet 0 03/2904/05/2019 MG tablet (0.25-0.5 mg) by mouth every 6 hours as needed for anxiety documented as of this encounter ED Notes Belinda Barnes RN - 03/29/2019 11:56 PM CDT Script rx ativan given to pt at time of discharge. A/O. VSS. Pt verbalized understanding of d/c instructions and ambulated to lobby steady gait. Lisa Cherry RN - 03/29/2019 10:49 PM CDT Patient presents with complaints of panic attacks. Patient states it started on Tuesday and has been persistent since then. Patient states he has an appointment on Tuesday to see a provider about the panic attacks. He states he does not take any medication at this time for them. Patient does see a integrity assessor. Denies any SI. ABC intact without need for intervention at this time. Senthil Griffith MD - 03/29/2019 10:46 PM CDT History Chief Complaint: Panic Attack HPI Seamus Barnes is a 24 year old male with a history of anxiety who presents with panic attack. The patient reports that he has a history of panic attacks and last Tuesday he had his first panic attack in 5-6 years. He notes that they have been persistent all week stating that he can't shake the anxiety and disrupting his sleep. Tonight, the patient was laying in bed when he had another panic attack prompting his presentation. He describes the panic attacks as feeling like he is going to and having a fight or flight response. The patient states that he has been holding too much in and he thinks too much about his thoughts. The patient details that he has an appointment on Tuesday [facility] and possible re-initiating of his medications of Prozac and Buspar that he used to take. Last marijuana use was a month ago. Allergies: Minocycline; itching and rash Medications: Flonase Past Medical History: Anxiety Obesity Past Surgical History: Orthopedic surgery ENT surgery Family History: Maternal grandmother: diabetes Paternal grandmother: cancer Social History: The patient was accompanied to the ED by mother. Smoking Status: Never Smoker Smokeless Tobacco: Never Used Alcohol Use: Positive Drug Use: Negative PCP: Annalisa Silva Marital Status: Single Review of Systems Psychiatric/Behavioral: Positive for sleep disturbance. The patient is nervous/anxious. Panic attacks All other systems reviewed and are negative. Physical Exam Patient Vitals for the past 24 hrs: BP Temp Heart Rate Resp SpO2 03/29/19 2253 149/92 98 ??F (36.7 ??C) 97 18 100 % Physical Exam Nursing note and vitals reviewed. Constitutional: Cooperative. HENT: Mouth/Throat: Mucous membranes are normal. Cardiovascular: Normal rate, regular rhythm and normal heart sounds. No murmur. Pulmonary/Chest: Effort normal and breath sounds normal. No respiratory distress. No wheezes. No rales. Abdominal: Normal appearance Neurological: Alert. Oriented x4 Skin: Skin is warm and dry. Psychiatric: Anxious appearing. No SI or hallucinations. Emergency Department Course Interventions: 2337 Ativan 0.5 mg PO Emergency Department Course: Nursing notes and vitals reviewed. 2326 I performed an exam of the patient as documented above. 2340 I personally reviewed the exam results with the patient and answered all related questions prior to discharge. Impression & Plan Medical Decision Making: Seamus Barnes is a 24 year old male with a history of panic attacks and anxiety who presents tot emergency department today for evaluation of symptoms consistent with recurrent panic attacks. No concern for drug use or other stimulants. He would be an excellent candidate PNR benzodiazepines with appropriate teaching. He already has a mental health appointment set up on Tuesday and has been onanti-anxiety meds in the past. His mother is here and supportive. First dose was administered here in the emergency department and he was discharged home in stable condition. Diagnosis: ICD-10-CM 1. Anxiety F41.9 2. Panic attack F41.0 Disposition: The patient is discharged to home. Discharge Medications: START taking Dose / Directions LORazepam 0.5 MG tablet Commonly known as: ATIVAN Dose: 0.25-0.5 mg Take 0.5-1 tablets (0.25-0.5 mg) by mouth every 6 hours as needed for anxiety Quantity: 10 tablet Refills: 0 Where to get your medicines Some of these will need a paper prescription and others can be bought over the counter. Ask your nurse if you have questions. Bring a paper prescription for each of these medications ?? LORazepam 0.5 MG tablet Scribe Disclosure: Jaelyn Moctezuma, am serving as a scribe at 11:08 PM on 03/29/2019 to document services personally performed by Senthil Griffith MD based on my observations and the provider's statements to me. [facility] Senthil Griffith MD 03/30/[address] documented in this encounter Plan of Treatment Upcoming Encounters Date Type Specialty Care Team Description 11/04/2022 Office Visit Internal Medicine Marcy Ricketts APRN OBEDIENCE TRAINER [address] [place], [place] [address] (Wo rk) documented as of this encounter Visit Diagnoses Diagnosis Anxiety Anxiety state, unspecified Panic attack Panic disorder without agoraphobia documented in this encounter Administered Medications Inactive Administered Medications - up to 3 most recent administrations Medication Order MAR Action Action Date Dose Rate Site LORazepam (ATIVAN) tablet 0.5 mg Given 03/29/2019 11:37 PM CDT 0.5 mg 0.5 mg, Oral, ONCE, On Jes 03/29/19 at 2333, For 1 dose documented in this encounter Active and Recently Administered Medications Times are shown in CDT. Scheduled Medication Order 03/27/2019 03/28/2019 03/29/2019 LORazepam (ATIVAN) tablet 0.5 mg (COMPLETED) 2337 (Given - Provider: Belinda Barnes RN) 0.5 mg, Oral, ONCE, Jes 03/29/19 at 2333, For 1 dose documented in this encounter Additional Health Concerns Assessment Noted Time PHQ-9 Depression Total Score: 5 09/08/2016 7:22 AM LUMBER TALLIER documented as of this encounter Care Teams Cloud Systems Architect Relationship Specialty Start Date End Date Annalisa Silva NP PCP - General Nurse Practitioner - Adult 08/26/15 [address] [place] [address] Annalisa Silva NP Assigned PCP 11/26/18 10/04/20 [address] [place] [address] documented as of this encounter
--- OUTSIDE RECORDS SUMMARY | 2022-09-26 20:24 | XMS_ITS | Encounter Summary ---
:1995 Author Organization [place] Address Replaced by [facility] [place] [address] Care Team Providers Name Role Phone Annalisa Silva REINSURANCE CLAIMS ANALYST Primary Care Provider [phone] Annalisa Silva REINSURANCE CLAIMS ANALYST Unavailable Reason for Visit Reason Onset Date Comments Medication Request 04/05/2019 Encounter Details Date Type Department Care Team Description 04/05/2019 Telephone [facility] Annalisa Silva, Medication Request [place] REINSURANCE CLAIMS ANALYST [address] [place] [address] [place], [place] [phone] (Wo rk) [address] [phone] Social History Tobacco Use Types Packs/Day Years [...] this encounter Miscellaneous Notes Telephone Encounter - Phillip Jean, ARASELI - 04/05/2019 10:28 AM CDT Rx Ativan was faxed to [facility] Phillip Jean CMA Telephone Encounter - Annalisa Silva NP - 04/05/2019 9:58 AM CDT Discussion Via phone with pt and his psychologist regarding use of effexor, intense out patient program and use of ativan prn while effexor reaching theraputic levels. Rx ativan at IM desk for garbage pick up man. Annalisa Silva CLIP RIVETER Telephone Encounter - Bailey Britt - 04/05/2019 9:[address] Kacie Teixeira, patients Phycologist called and would like to speak to Annalisa Silva about this mutual patient. Please call her back at extension [phone]. Provider is concerned about increased symptoms and she has referred him to an intense in patient care and has referred him to return to see you and supports increasing medication to help him thru this time. documented in this encounter Plan of Treatment Upcoming Encounters Date Type Specialty Care Team Description 11/04/2022 Office Visit Internal Medicine Marcy Ricketts APRN CLIP RIVETER [address] [place], [place] [address] (Wo rk) documented as of this encounter Visit Diagnoses Diagnosis Generalized anxiety disorder - Primary documented in this encounter Additional Health Concerns Assessment Noted Time PHQ-9 Depression Total Score: 17 04/03/2019 10:15 AM C DT documented as of this encounter Care Teams Visiting Housekeeper Relationship Specialty Start Date End Date Annalisa Silva NP PCP - General Nurse Practitioner - Adult 08/26/15 [address] [place] [address] Annalisa Silva NP Assigned PCP 11/26/18 10/04/20 [address] [place], [place] [address] documented as of this encounter
--- OUTSIDE RECORDS SUMMARY | 2022-09-26 20:24 | XMS_ITS | Encounter Summary ---
:1995 Author Organization [place] Address [facility] [place] [address] Care Team Providers Name Role Phone Annalisa Silva SANDBLASTER STONE Primary Care Provider [phone] Annalisa Silva SANDBLASTER STONE Unavailable Encounter Details Date Type Department Care Team Description 11/15/2018 Travel Social History Tobacco Use Types Packs/Day [...] Office Visit Internal Medicine Marcy Ricketts APRN REHABILITATION AIDE [address] [place], [place] [address] (Wo rk) documented as of this encounter Visit Diagnoses Not on filedocumented in this encounter Additional Health Concerns Assessment Noted Time PHQ-9 Depression Total Score: 5 09/08/2016 7:22 AM WORM RAISER documented as of this encounter Care Teams Sustainable Communities Designer Relationship Specialty Start Date End Date Annalisa Silva, PCP - General Nurse Practitioner - 10/27/15 6/11/19 SANDBLASTER STONE [facility] [address] [place] [address] Annalisa Silva, PCP - Assigned PCP 09/12/16 11/18/18 SANDBLASTER STONE [address] [place], [place] [id number] documented as of this encounter
--- OUTSIDE RECORDS SUMMARY | 2022-09-26 20:24 | XMS_ITS | Encounter Summary ---
:1995 Author Organization [place] Address [facility] [place] [address] Care Team Providers Name Role Phone Annalisa Silva INFORMATION ASSURANCE ANALYST Primary Care Provider [phone] Annalisa Silva INFORMATION ASSURANCE ANALYST Unavailable Reason for Visit Reason Comments Anxiety Encounter Details Date Type Department Care Team Description [facility] [address] [facility] [address] [place] [address] [place], [place] [phone] (Wo rk) Social History Tobacco Use Types [...] Sign Reading Time Taken Comments Blood Pressure 139/59 04/01/2019 1:44 AM CDT Pulse 42 04/01/2019 1:44 AM normal restin g HR 40s CDT per patient Temperature 36.3 ??C (97.4 ??F) 04/01/2019 1:44 AM CDT Respiratory Rate 18 04/01/2019 1:44 AM CDT Oxygen Saturation 99% 04/01/2019 1:44 AM CDT Inhaled Oxygen - - Concentration Weight - - Height - - Body Mass Index - - documented in this encounter Discharge Instructions Discharge InstructionsEvelio Johnson MD - 04/01/2019 2:26 AM CDT Can take 1mg of ativan for anxiety attack. May take 0.5mg if it's not working after 45 minutes Do not mix ativan with other sedatives documented in this encounter Medications at Time of Discharge Medication Sig Dispensed Refills Start Date End Date Multiple Take 1 tablet by 0 Vitamins-Minerals (RALF mouth daily MULTI MEN PO) [place]-3 Fatty Acids Take 1 capsule by 0 (FISH OIL OMEGA-3 PO) mouth daily fluticasone (FLONASE) 50 [place] 1 spray into 9.9 g 1 03/201904/03/2019 MCG/ACT nasal both nostrils daily sprayIndications: Seasonal allergic rhinitis due to pollen LORazepam (ATIVAN) 0.5 Take 0.5-1 tablets 10 tablet 0 03/2904/05/2019 MG tablet (0.25-0.5 mg) by mouth every 6 hours as needed for anxiety documented as of this encounter ED Notes Alex Rich RN - 04/01/2019 1:42 AM CDT Here for panic attack started around 0000, took lorazepam 1 hour ago with no help. Seen here 2 days ago for same. ABCs intact. Evelio Johnson MD - 04/01/2019 1:40 AM CDT History Chief Complaint: Anxiety HPI Seamus Barnes is a 24 year old male with a history of anxiety who presents for evaluation of anxiety and a panic attack. He reports that he was seen her 2 days ago for similar symptoms; at that time, he was given a prescription for PRN 0.5 mg Ativan to help him sleep. Tonight, he reports that he took one of these tablets when he tried to go to sleep, about 2 hours prior to arrival. When he was still unable to fall asleep, he reports starting to have a panic attack and hyperventilating. Worried about these symptoms despite taking the Ativan, he decided to re-present to the ED. Here, he reports feeling improved, but reports concern that he will not be able to fall asleep later. He reports that he has regular weekly appointments with a therapist, as well as an appointment to discuss medication with his PCP, Dr. Silva, in the next week, but is still feeling these symptoms. He denies any suicidal ideations or past history of addiction. He also denies any specific triggers for his stress of late, just that he has a lot of anxiety and worries in general. Of note, he has yet to try any sleep medications other than PRN melatonin. He does report a recent nasal surgery that he underwent as a possible solution to his sleep problem, however this has not helped. Allergies: Minocycline Medications: Ativan PRN Past Medical History: Anxiety Past Surgical History: Knee surgery Nose surgery Family History: No past pertinent family history. Social History: Marital Status: Single [1] Mother at bedside. Negative for tobacco use. Positive for alcohol use. Review of Systems Psychiatric/Behavioral: Positive for sleep disturbance. Negative for self-injury and suicidal ideas.The patient is nervous/anxious. All other systems reviewed and are negative. Physical Exam Patient Vitals for the past 24 hrs: BP Temp Temp src Pulse Heart Rate Resp SpO2 04/01/19 0144 139/59 97.4 ??F (36.3 ??C) Oral (!) 42 (!) 42 18 99 % Physical Exam Constitutional: He appears well-developed and well-nourished. HENT: Right Ear: External ear normal. Left Ear: External ear normal. Mouth/Throat: Oropharynx is clear and moist. No oropharyngeal exudate. TM's clear bilaterally Eyes: Pupils are equal, round, and reactive to light. Conjunctivae are normal. No scleral icterus. Cardiovascular: Normal rate, regular rhythm, normal heart sounds and intact distal pulses. Exam reveals no gallop and no friction rub. No murmur heard. Pulmonary/Chest: Effort normal and breath sounds normal. No respiratory distress. He has no wheezes.He has no rales. Neurological: He is alert. Skin: Skin is warm and dry. Capillary refill takes less than 2 seconds. No rash noted. Psychiatric: He has a normal mood and affect. Emergency Department Course Emergency Department Course: Nursing notes and vitals reviewed. (0202) I performed an exam of the patient as documented above. He denies any medications here in theED. ?? Findings and plan explained to the Patient. Patient discharged home with instructions regarding supportive care, medications, and reasons to return. The importance of close follow-up was reviewed. ?? I personally answered all related questions prior to discharge. ?? Impression & Plan Medical Decision Making: Seamus Barnes is a 24 year old male who presents for evaluation of anxiety. There is a history of anxiety in the past. He is not currently on medications, but he has an appointment set up in 2 days with his primary physician to discuss starting them. He feels improved while in the Emergency department, and declines any interventions while here. There are no signs at this point of a general medical problem causing anxiety (PE, hyperthyroidism, other metabolic derangement, infection, etc). There are no signs of serious decompensation warranting psychiatric hospitalization or 72 hold (no suicidalor homicidal ideation, no danger to self). Supportive outpatient management is therefore indicated. I did recommend he take two tablets of the previously prescribed 0.5 mg Ativan as needed, based on the size of the patient. Diagnosis: ICD-10-CM 1. Anxiety attack F41.0 Disposition: discharged to home Discharge Medications: There are no discharge medications. Scribe Disclosure: I, Marnie Quiroga, am serving as a scribe on 04/01/2019 at 2:02 AM to personally document services performed by Evelio Johnson MD based on my observations and the provider's statements to me. Marnie Quiroga 04/01/2019 [facility] EMERGENC[facility]PART[facility] Evelio Johnson MD 04/01/19 0400 documented in this encounter Plan of Treatment Upcoming Encounters Date Type Specialty Care Team Description 11/04/2022 Office Visit Internal Medicine Marcy Ricketts APRN LAMINATION BUILDER [address] [place], [place] [address] (Wo rk) documented as of this encounter Visit Diagnoses Diagnosis Anxiety attack Panic disorder without agoraphobia documented in this encounter Additional Health Concerns Assessment Noted Time PHQ-9 Depression Total Score: 5 09/08/2016 7:22 AM AERONAUTICAL ENGINEERING OFFICER documented as of this encounter Care Teams Sport Internship Relationship Specialty Start Date End Date Annalisa Silva NP PCP - General Nurse Practitioner - Adult 08/26/15 [address] [place] [address] Annalisa Silva NP Assigned PCP 11/26/18 10/04/20 [address] [place] [address] documented as of this encounter
--- OUTSIDE RECORDS SUMMARY | 2022-09-26 20:24 | XMS_ITS | Encounter Summary ---
:1995 Author Organization [place] Address [facility] [place] [address] Care Team Providers Name Role Phone Annalisa Silva SKILLED NURSING PROFESSIONAL Primary Care Provider [phone] Annalisa Silva SKILLED NURSING PROFESSIONAL Unavailable Encounter Details Date Type Department Care Team Description 04/01/2019 Travel Social History Tobacco Use Types Packs/Day [...] Visit Internal Medicine Marcy Ricketts APRN PRODUCT TESTER [employer] [address] [place], [place] [address] (Wo rk) documented as of this encounter Visit Diagnoses Not on filedocumented in this encounter Additional Health Concerns Assessment Noted Time PHQ-9 Depression Total Score: 5 09/08/2016 7:22 AM EDGE BASTER documented as of this encounter Care Teams Litigation Partner Relationship Specialty Start Date End Date Annalisa Silva NP PCP - General Nurse Practitioner - Adult 08/26/15 [address], [place] [id number] Annalisa Silva NP Assigned PCP 11/26/18 10/04/20 [address] [place], [place] [address] documented as of this encounter
--- OUTSIDE RECORDS SUMMARY | 2022-09-26 20:24 | XMS_ITS | Encounter Summary ---
:1995 Author Organization [place] Address [facility] [place] [address] Care Team Providers Name Role Phone Annalisa Silva CORE LOADER Primary Care Provider [phone] Annalisa Silva CORE LOADER Unavailable Encounter Details Date Type Department Care Team Description 11/02/2018 Travel Social History Tobacco Use Types Packs/Day Years Used Date Smoking Tobacco: Passive Smoke Exposure - Never Smoker Smokeless Tobacco: Never Comments: dad smokes outside [...] Office Visit Internal Medicine Marcy Ricketts APRN COMBINED RAIL OPERATOR [address] [place], [place] [address] (Wo rk) documented as of this encounter Visit Diagnoses Not on filedocumented in this encounter Additional Health Concerns Assessment Noted Time PHQ-9 Depression Total Score: 5 09/08/2016 7:22 AM CYBER SECURITY MANAGER documented as of this encounter Care Teams Cognos Administrator Relationship Specialty Start Date End Date Annalisa Silva, PCP - General Nurse Practitioner - 08/26/15 04/10/19 CORE LOADER Adult Health [address] [facility] [place], [place] [phone] Annalisa Silva, PCP - Assigned PCP 09/12/16 11/18/18 CORE LOADER [address] [place], [place] [phone] documented as of this encounter
--- OUTSIDE RECORDS SUMMARY | 2022-09-26 20:24 | XMS_ITS | Encounter Summary ---
:1995 Author Organization [place] Address [address] [place] [address] Care Team Providers Name Role Phone Annalisa Silva READING INTERVENTIONIST Primary Care Provider [phone] Annalisa Silva READING INTERVENTIONIST Unavailable Encounter Details Date Type Department Care Team Description 04/04/2019 [facility] Joel Waterman MD Depression, unspecified depression type; [facility] Emergency EMERGENCY PHYSICIANS Anxiety; Dept JUN Insomnia, unspecified type [address] [place] [address] [place] [address] [phone] Social History Tobacco Use Types Packs/Day Years [...] Sign Reading Time Taken Comments Blood Pressure 149/83 04/04/2019 7:48 PM CDT Pulse - - Temperature 36.8 ??C (98.3 ??F) 04/04/2019 7:48 PM CDT Respiratory Rate 16 04/04/2019 7:48 PM CDT Oxygen Saturation 99% 04/04/2019 7:48 PM CDT Inhaled Oxygen Concentration - - Weight 113.9 kg (251 lb) 04/04/2019 7:48 PM CDT Height 188 cm (6' 2) 04/04/2019 7:48 PM CDT Body Mass Index 32.23 04/04/2019 7:48 PM CDT documented in this encounter Discharge Instructions AttachmentsThe following attachments cannot be sent through Care Everywhere. Insomnia (Argentine)Anxiety Reaction (Argentine)Depression (Argentine)documented in this encounter Medications at Time of Discharge Medication Sig Dispensed Refills Start Date End Date Multiple Take 1 tablet by 0 Vitamins-Minerals (RALF mouth daily MULTI MEN PO) Badin-3 Fatty Acids Take 1 capsule by 0 (FISH OIL OMEGA-3 PO) mouth daily LORazepam (ATIVAN) 0.5 Take 0.5-1 tablets 10 tablet 0 03/2904/05/2019 MG tablet (0.25-0.5 mg) by mouth every 6 hours as needed for anxiety venlafaxine (EFFEXOR-XR) Take 1 capsule (75 30 capsule 1 01/201904/15/2019 75 MG 24 hr mg) by mouth daily capsuleIndications: Generalized anxiety disorder, Current moderate episode of major depressive disorder without prior episode (H) documented as of this encounter ED Notes Joel Waterman MD - 04/04/2019 7:23 PM CDT History Chief Complaint: Anxiety/Depression HPI Seamus Barnes is a 24 year old male with a history of PTSD and anxiety who presents with anxiety and depression. The patient was diagnosed with PTSD in the last year and has been seeing a therapist that he likes once a week for the past year. He recently realized that he has a difficult time opening up to her until his last appointment with her approximately 6 day ago. He came to the realizationthat he has been bottling everything up too much and wanted to change that. His therapist recommended some coping mechanisms but the patient did not use them. Since then, his anxiety has escalated, he has been crying more than usual and having the thought that he wished he wasn't born. With concern for these thoughts and with a goal of inpatient treatment, the patient presented to the ED for evaluation. The patient does have a history of self harm however he has not done so recently. The patienthas nose surgery approximately 2 weeks ago that went well but also exacerbated his anxiety. Additionally, the patient reported that he is an insomniac and has not had a good night sleep in a year as hehas trouble falling asleep because his mind races. The patient was recently started on effexor, he took his first dose yesterday at approximately 1100 and it made him drowsy so he was going to wait until later tonight to take his second dose. The patient took 1mg of Ativan at approximately 1810, priorto arrival in the ED. He endorsed a headache and denied chest pain, shortness of breath or recent drug or alcohol use. Of note, the patient has presented to the ED for evaluation of anxiety 3 times in the last 4 days. 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 Allergies: Minocycline Medications: Ativan Venlafaxine Past Medical History: Anxiety disorder Obesity Past Surgical History: Nose surgery Orthopedic right knee surgery Family History: No past pertinent family history. Social History: Negative for tobacco use. 3-4 drinks/week Negative for drug use Marital Status: Single [1] Review of Systems Respiratory: Negative for shortness of breath. Cardiovascular: Negative for chest pain. Neurological: Positive for headaches. Psychiatric/Behavioral: Positive for sleep disturbance. Negative for suicidal ideas. The patient is nervous/anxious. All other systems reviewed and are negative. Physical Exam Patient Vitals for the past 24 hrs: BP Temp Temp src Heart Rate Resp SpO2 Height Weight 04/04/19 1948 149/83 98.3 ??F (36.8 ??C) Oral 58 16 99 % 1.88 m (6' 2) 113.9 kg (251 lb) Physical Exam General: No distress. Head: No signs of trauma. Mouth/Throat: Oropharynx moist. Eyes: Conjunctivae are normal. Pupils are equal.. Neck: Normal range of motion. Resp:No respiratory distress. MSK: Normal range of motion. No obvious deformity. Neuro: The patient is alert and interactive. AQUINO. Speech normal. GCS 15 Skin: No lesion or sign of trauma noted. Psych: normal mood and affect. behavior is normal. Emergency Department Course Emergency Department Course: Nursing notes and vitals reviewed. (2010) I performed an exam of the patient as documented above. (2216) I consulted with [facility] regarding the patient's history and presentation here in the emergency department. (2219) I rechecked the patient and discussed the results of his workup thus far. Offered admission but he declined. Findings and plan explained to the Patient. Patient discharged home with instructions regarding supportive care, medications, and reasons to return. The importance of close follow-up was reviewed. I personally reviewed the laboratory results with the Patient and answered all related questions prior to discharge. Impression & Plan Medical Decision Making: Seamus Barnes is a 24 year old male who presents for evaluation of depressed mood. There is a history of depression in the past and they are on medications. There is no signs at this point of a general medical problem causing depression (brain tumor, metabolic derangement like hypothyroidism). I d id have DEC evaluate the patient, their recommendations are noted in separate note. They as well agree with the above recommendations. There are no signs of serious decompensation warranting psychiatric hospitalization or 72 hold (no suicidal or homicidal ideation, no danger to self). Supportive outpatient management is therefore indicated. Resources given to him. See [facility] evaluation notes. Diagnosis: ICD-10-CM 1. Depression, unspecified depression type F32.9 Disposition: discharged to home Discharge Medications: Medication List There are no discharge medications for this visit. Scribe Disclosure: I, Susanna Recio, am serving as a scribe on 04/04/2019 at 8:10 PM to personally document services performed by Joel Waterman MD based on my observations and the provider's statements to me. Susanna Recio 04/04/2019 EMERGENCY DEPARTMENT Joel Waterman MD 04/04/19 [id number] documented in this encounter Plan of Treatment Upcoming Encounters Date Type Specialty Care Team Description 11/04/2022 Office Visit Internal Medicine Marcy Ricketts APRN APPAREL RENTAL CLERK [address] [place], [place] [address] (Wo rk) documented as of this encounter Visit Diagnoses Diagnosis Depression, unspecified depression type Anxiety Anxiety state, unspecified Insomnia, unspecified type documented in this encounter Additional Health Concerns Assessment Noted Time PHQ-9 Depression Total Score: 17 04/03/2019 10:15 AM C DT documented as of this encounter Care Teams Property Utilization Officer Relationship Specialty Start Date End Date Annalisa Silva NP PCP - General Nurse Practitioner - Adult 08/26/15 [address] [place], [place] [address] Annlaisa Silva NP Assigned PCP 11/26/18 10/04/20 [address] [place] [address] documented as of this encounter
--- OUTSIDE RECORDS SUMMARY | 2022-09-26 20:24 | XMS_ITS | Encounter Summary ---
:1995 Author Organization [place] Address [address] [place] [address] Care Team Providers Name Role Phone Annalisa Silva SHOE STAINER Primary Care Provider [phone] Annalisa Silva SHOE STAINER Unavailable Reason for Referral - Closed Specialty Diagnoses / Procedures Referred By Contact Refer red To Contact Diagnoses Need for vaccination Mike Mckeon MD Procedures TD PRSERV FREE >=7 YRS ADS IM [[id number]] [address] [place] [address] Referral ID Status Reason Start Date Expiration Date Visits Requ ested Visits Authorized [id number] Closed 05/01/2018 05/01/2019 1 1 Reason for Visit Reason Comments Throat Problem He has sore throat, feeling like mucus or something in his throat for about a month. He doesn't th ink is strep. Encounter Details Date Type Department Care Team Description 05/01/2018 Office Visit [facility] Mike Mckeon MD Throat pain (Primary Dx); [facility] [address] Post-nasal drip; [address] Need for vaccination; [place], [place] Gastroesophageal reflux dise ase, esophag[place] [phone] Social History Tobacco Use Types Packs/Day Years Used Date Smoking Tobacco: Passive Smoke Exposure - Never Smoker Smokeless Tobacco: Never Tobacco Cessation: Counseling Given: [...] Sign Reading Time Taken Comments Blood Pressure 106/70 05/01/2018 9:19 AM CDT Pulse 44 05/01/2018 9:19 AM CDT Temperature 36.8 ??C (98.2 ??F) 05/01/2018 9:19 AM CDT Respiratory Rate 14 05/01/2018 9:19 AM CDT Oxygen Saturation 99% 05/01/2018 9:19 AM CDT Inhaled Oxygen Concentration - - Weight 114.3 kg (252 lb) 05/01/2018 9:19 AM CDT Height 188 cm (6' 2) 05/01/2018 9:19 AM CDT Body Mass Index 32.35 05/01/2018 9:19 AM CDT documented in this encounter Progress Notes Mike Mckeon MD - 05/01/2018 9:15 AM CDT SUBJECTIVE: Seamus Barnes is a 23 year old male who presents to clinic today for the following health issues: Throat pain He reports over the last month feeling throat irritation, he feels like mucus or something stuck in his throat for about a month now. No rash, no fevers. No pain swallowing. He is sexually active but using protection Problem list and histories reviewed & adjusted, as indicated. Additional history: as documented Patient Active Problem List Diagnosis ??? Obesity ??? Anxiety disorder ? ? Nausea & vomiting Past Surgical History: Procedure Laterality Date ??? ORTHOPEDIC SURGERY 07/29/16 rt knee Social History Substance Use Topics ??? Smoking status: Passive Smoke Exposure - Never Smoker ??? Smokeless tobacco: Never Used Comment: dad smokes outside ??? Alcohol use Yes Comment: occasional Family History Problem Relation Age of Onset ??? Family History Negative Mother ??? Family History Negative Father ??? Other Cancer Paternal Grandmother ??? Diabetes Maternal Grandmother ??? Diabetes Other Reviewed and updated as needed this visit by clinical staff Tobacco Allergies Meds Med Hx Surg Hx Fam Hx Soc Hx Reviewed and updated as needed this visit by Provider ROS: Constitutional, HEENT, cardiovascular, pulmonary, gi and gu systems are negative, except as otherwise noted. OBJECTIVE: BP 106/70 (BP Location: Right arm, Patient Position: Sitting, Cuff Size: Adult Large) Pulse (!) 44 Temp 98.2 ??F (36.8 ??C) (Oral) Resp 14 Ht 6' 2 (1.88 m) Wt 252 lb (114.3 kg) SpO2 99% BMI 32.35 kg/m2 Body mass index is 32.35 kg/(m^2). GENERAL: healthy, alert and no distress HENT: nose and mouth without ulcers or lesions, slight tonsillar enlargement NECK: no adenopathy, no asymmetry, masses, or scars and thyroid normal to palpation RESP: lungs clear to auscultation - no rales, rhonchi or wheezes CV: regular rate and rhythm, normal S1 S2, no S3 or S4, no murmur ABDOMEN: soft, nontender, no hepatosplenomegaly, no masses MS: no gross musculoskeletal defects noted, no edema Diagnostic Test Results: none ASSESSMENT/PLAN: 1. Throat pain Differential includes strep, mono, HIV. Will also test thyroid function given location in neck. If this is all unrevealing, may also try him on PPI given he endorses feeling of food getting stuck - Strep, Rapid Screen - Beta strep group A culture - Mononucleosis screen - HIV Antigen Antibody Combo - TSH with free T4 reflex 2. Post-nasal drip Given endorses post-nasal drip, will do a trial of flonase in addition to above - fluticasone (FLONASE) 50 MCG/ACT spray; Sebastian 1-2 sprays into both nostrils daily Dispense: 3 Bottle; Refill: 1 3. Need for vaccination Tetanus needed - TD PRSERV FREE >=7 YRS ADS IM [[id number]] Mike Mckeon MD [facility] documented in this encounter Nursing Notes Yolanda Starks MA - 05/01/2018 9:15 AM CDT Vital signs: Temp: 98.2 ??F (36.8 ??C) Temp src: Oral BP: 106/70 Pulse: (!) 44 Resp: 14 SpO2: 99 % Height: 6' 2 (188 cm) Weight: 252 lb (114.3 kg) Estimated body mass index is 32.35 kg/(m^2) as calculated from the following: Height as of this encounter: 6' 2 (1.88 m). Weight as of this encounter: 252 lb (114.3 kg). Throat problem. Yolanda Starks MA - 05/01/2018 9:15 AM CDT Screening Questionnaire for Adult Immunization Are you sick today? No Do you have allergies to medications, food, a vaccine component or latex? No Have you ever had a serious reaction after receiving a vaccination? No Do you have a long-term health problem with heart disease, lung disease, asthma, kidney disease, metabolic disease (e.g. diabetes), anemia, or other blood disorder? No Do you have cancer, leukemia, HIV/AIDS, or any other immune system problem? No In the past 3 months, have you taken medications that affect your immune system, such as prednisone,other steroids, or anticancer drugs; drugs for the treatment of rheumatoid arthritis, Crohn???s disease, or psoriasis; or have you had radiation treatments? No Have you had a seizure, or a brain or other nervous system problem? No During the past year, have you received a transfusion of blood or blood products, or been given immune (gamma) globulin or antiviral drug? No For women: Are you or is there a chance you could become during the next month? No Have you received any vaccinations in the past 4 weeks? No Immunization questionnaire answers were all negative. Per orders of Dr. Mckeon, injection of TD given by Yolanda Starks. Patient instructed to remain in clinic for 15 minutes afterwards, and to report any adverse reaction to me immediately. Screening performed by Yolanda Starks on 05/01/2018 at 10:01 AM. Prior to injection verified patient identity using patient's name and date of . Due to injection administration, patient instructed to remain in clinic for 15 minutes afterwards, and to report any adverse reaction to me immediately. documented in this encounter Miscellaneous Notes Addendum Note - Mike Mckeon MD - 05/02/2018 1:45 PM CDT Addended by: MIKE MCKEON on: 05/02/2018 01:45 PM Modules accepted: Orders documented in this encounter Plan of Treatment Upcoming Encounters Date Type Specialty Care Team Description 11/04/2022 Office Visit Internal Medicine Marcy Ricketts APRN SPEECH AND LANGUAGE CLINICIAN [address] [place], [place] [address] (Wo rk) documented as of this encounter Procedures Procedure Name Priority Date/Time Associated Comments Diagnosis HIV ANTIGEN ANTIBODY Routine 05/01/2018 10:04 Throat pain Res ults for this COMBO AM CDT procedure are i n the results section. TSH WITH FREE T4 Routine 05/01/2018 10:04 Throat pain Results for this REFLEX AM CDT procedure are i n the results section. MONONUCLEOSIS SCREEN Routine 05/01/2018 10:04 Throat pain Res ults for this AM CDT procedure are i n the results section. RAPID STREP SCREEN AMRIT 05/01/2018 9:24 AM Throat pain Res ults for this THROAT SWAB CDT procedure are i n the results section. BETA HEMOLYTIC STREP Routine 05/01/2018 9:24 AM Throat pain R esults for this GROUP A CULTURE CDT procedure ar e in the results section. documented in this encounter Results TSH with free T4 reflex (05/01/2018 10:04 AM CDT) athologist Signature TSH 1.56 0.40 - 4.00 05/02/2018 [facility] mU/L 10:[address] [facility] Specimen Anatomical Collection Method Collection Time Receive d Time (Source) Location / / Volume Laterality Blood specimen 05/01/2018 10:04 8 (specimen) AM CDT 10:05 AM CDT Mike Mckeon MD LAB - BLOOD ORDERABLES Performing Organization Address City/State/ZIP Code Phon e Number [facility] [address] [place] [address] HIV Antigen Antibody Combo (05/01/2018 10:04 AM CDT) [facility] Method Time Signature HIV Antigen Nonreactive NR^Nonrea 05/02/2018 [facility] ctive 11:11 AM CDT [place] [facility] Comment: HIV-1 p24 Ag & HIV-1/HIV-2 Ab N ot Detected Specimen Anatomical Collection Method Collection Time Receive d Time (Source) Location / / Volume Laterality Blood specimen 05/01/2018 10:04 8 (specimen) AM CDT 10:05 AM CDT Mike Mckeon MD LAB - BLOOD ORDERABLES Performing Organization Address City/State/ZIP Code Phon e Number [facility] [address] [place] [address] [facility] Mononucleosis screen (05/01/2018 10:04 AM CDT) [facility] Method Time Signature Mononucleosis Negative NEG^Negat 05/01/2018 [place] Screen jorge 10:49 AM CDT [facility] Specimen Anatomical Collection Method Collection Time Receive d Time (Source) Location / / Volume Laterality Blood specimen 05/01/2018 10:04 8 (specimen) AM CDT 10:05 AM CDT Mike Mckeon MD LAB - BLOOD ORDERABLES Performing Organization Address City/State/ZIP Code Phon e Number [facility] [address] [place], [place] [address] [address] Beta strep group A culture (05/01/2018 9:24 AM CDT) Component Value Ref Test Analysis Performed At [facility] Range Method Time Signature Specimen Throat [facility] Culture Micro No beta 05/02/2018 [place] hemolytic 8:52 AM CDT [facility] Streptococcus SUTHERLIN Group A isolated Specimen Anatomical Collection Method Collection Time Receive d Time (Source) Location / / Volume Laterality Specimen from 05/01/2018 9:24 AM 05/01/20 18 9:44 throat CDT AM CDT (specimen) Mike Mckeon MD LAB - MICRO GENERAL ORDERABL ES Performing Organization Address City/[facility]/ZIP Code Phon e Number [facility] [address] [place], [place] [address] [address] Strep, Rapid Screen (05/01/2018 9:24 AM CDT) Component Value Ref Test Analysis Performed At [facility] Range Method Time Signature Specimen [facility]roat [facility] Description [facility] Rapid Strep A NEGATIVE: No 05/01/2018 [place] Screen Group A 9:45 AM CDT [facility] streptococcal SUTHERLIN antigen detected by immunoassay, await culture report. Specimen Anatomical Collection Method Collection Time Receive d Time (Source) Location / / Volume Laterality Specimen from 05/01/2018 9:24 AM 05/01/20 18 9:44 throat CDT AM CDT (specimen) Mike Mckeon MD LAB - MICRO GENERAL ORDERABL ES Performing Organization Address City/[facility]/ZIP Code Phon e Number [place] [address] [place], [place] [address] [address] documented in this encounter Visit Diagnoses Diagnosis Throat pain - Primary Post-nasal drip Postnasal drip Need for vaccination Need for prophylactic vaccination and in oculation against unspecified single disease Gastroesophageal reflux disease, esophag itis presence not specified documented in this encounter Additional Health Concerns Assessment Noted Time PHQ-9 Depression Total Score: 5 09/08/2016 7:22 AM 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
--- OUTSIDE RECORDS SUMMARY | 2022-09-26 20:24 | XMS_ITS | Encounter Summary ---
:1995 Author Organization [place] Address [facility] [place] [address] Care Team Providers Name Role Phone Annalisa Silva CULTURE MANAGER Primary Care Provider [phone] Annalisa Silva CULTURE MANAGER Unavailable Encounter Details Date Type Department Care Team Description 04/04/2019 Travel Social History Tobacco Use Types Packs/Day [...] Office Visit Internal Medicine Marcy Ricketts APRN RIM TURNING MACHINE OPERATOR [address] [place], [place] [address] (Wo rk) documented as of this encounter Visit Diagnoses Not on filedocumented in this encounter Additional Health Concerns Assessment Noted Time PHQ-9 Depression Total Score: 17 04/03/2019 10:15 AM C DT documented as of this encounter Care Teams Engineer Sergeant Relationship Specialty Start Date End Date Annalisa Silva NP PCP - General Nurse Practitioner - Adult 08/26/15 [address] [place], [place] [phone] Annalisa Silva, BETTY Assigned PCP 11/26/18 10/04/20 [address] [place], [place] [id number] documented as of this encounter
--- OUTSIDE RECORDS SUMMARY | 2022-09-26 20:24 | XMS_ITS | Encounter Summary ---
:1995 Author Organization [place] Address [facility]ly [facility] [place] [address] Care Team Providers Name Role Phone Annalisa Silva OPERATER Primary Care Provider [phone] Annalisa Silva OPERATER Unavailable Encounter Details Date Type Department Care Team Description 02/21/2019 Travel Social History Tobacco Use Types Packs/Day [...] Office Visit Internal Medicine Marcy Ricketts APRN INSURANCE ACCOUNT ASSISTANT [address] [place], [place] [address] (Wo rk) documented as of this encounter Visit Diagnoses Not on filedocumented in this encounter Additional Health Concerns Assessment Noted Time PHQ-9 Depression Total Score: 5 09/08/2016 7:22 AM CLOTHES MODEL documented as of this encounter Care Teams Mitigation Supervisor Relationship Specialty Start Date End Date Annalisa Silva NP PCP - General Nurse Practitioner - Adult 08/26/15 [address] [place], [place] [id number] Annalisa Silva NP Assigned PCP 11/26/18 10/04/[address] [place], [place] [address] documented as of this encounter
--- OUTSIDE RECORDS SUMMARY | 2022-09-26 20:24 | XMS_ITS | Encounter Summary ---
:1995 Author Organization [place] Address [address] [place] [place] [address] Care Team Providers Name Role Phone Annalisa Silva CHECKROOM CHIEF Primary Care Provider [phone] Annalisa Silva CHECKROOM CHIEF Unavailable Reason for Visit Reason Onset Date Comments Hospital F/U 03/28/2018 Vomiting And Diarrhe a, Diarrhea, Unspecified Type Encounter Details Date Type Department Care Team Description 03/28/2018 Telephone [facility] Annalisa Silva [facility] F/U (Vomiting Clinic Meghan Yousif NP And Diarrhea, [address] Diarrhea, [place] [address] Type) [place], [place] [phone] (Wo rk) [address] [phone] Social History Tobacco Use Types Packs/Day Years [...] Telephone Encounter - Antonietta Ware RN - 03/28/2018 3:57 PM CDT ED for acute condition Discharge Protocol Hi, my name is Antonietta Ware, a registered nurse, and I am calling from [facility]. I am calling to follow up and see how things are going for you after your recent emergency visit. Tell me how you are doing now that you are home? doing well at home Discharge Instructions Let's review your discharge instructions. What is/are the follow-up recommendations? Pt. Response: Follow up with PCP if symptoms do not improve. Has an appointment with your primary care provider been scheduled? No (not needed) Medications Tell me what changed about your medicines when you discharged? No changes What questions do you have about your [...] time and take care! Telephone Encounter - Isa Daigle - 03/28/2018 12:31 PM CDT ED / Discharge Outreach Protocol Patient Contact Attempt # 1 Was call answered? No. Left message on voicemail with information to call me back. Telephone Encounter - Nicole Maloney - 03/28/2018 10:08 AM CDT IP F/U Date: 03/24/18 Diagnosis: Vomiting And Diarrhea, Diarrhea, Unspecified Type Is patient active in care coordination? No Was patient in TCU? No documented in this encounter Plan of Treatment Upcoming Encounters Date Type Specialty Care Team Description 11/04/2022 Office Visit Internal Medicine Marcy Ricketts APRN AWNING HANGER HELPER [address] [place], [place] [address] (Wo rk) documented as of this encounter Visit Diagnoses Not on filedocumented in this encounter Additional Health Concerns Assessment Noted Time PHQ-9 Depression Total Score: 5 09/08/2016 7:22 AM MARKET RESEARCHER documented as of this encounter Care Teams Occupational Therapy Aide Relationship Specialty Start Date End Date Annalisa Silva, PCP - General Nurse Practitioner - 08/26/15 04/10/19 CHECKROOM CHIEF Adult Health [address] [place] [address] Annalisa Silva, PCP - Assigned PCP 09/12/16 11/18/18 CHECKROOM CHIEF [address] [place] [address] documented as of this encounter
--- OUTSIDE RECORDS SUMMARY | 2022-09-26 20:24 | XMS_ITS | Encounter Summary ---
:1995 Author Organization [place] Address [address] [place] [address] Care Team Providers Name Role Phone Annalisa Silva NP Primary Care Provider [phone] Annalisa Silva METAL MOLD DRESSER Unavailable Reason for Visit Reason Comments Physical fasting Encounter Details Date Type Department Care Team Description [facility] Clinic Meghan Yousif NP Need for prophylactic vaccination and in oculation against influenza [address] [place] [address] [phone] Social History Tobacco Use Types Packs/Day Years [...] Sign Reading Time Taken Comments Blood Pressure 112/70 11/15/2018 9:24 AM MAILROOM COORDINATOR Pulse 40 11/15/2018 9:24 AM MAILROOM COORDINATOR Temperature 36.4 ??C (97.5 ??F) 11/15/2018 9:24 AM MAILROOM COORDINATOR Respiratory Rate 16 11/15/2018 9:24 AM MAILROOM COORDINATOR Oxygen Saturation 100% 11/15/2018 9:24 AM MAILROOM COORDINATOR Inhaled Oxygen Concentration - - Weight 115.3 kg (254 lb 1.6 oz) 11/15/2018 9:24 AM MAILROOM COORDINATOR Height 188 cm (6' 2) 11/15/2018 9:24 AM MAILROOM COORDINATOR Body Mass Index 32.62 11/15/2018 9:24 AM MAILROOM COORDINATOR documented in this encounter Patient Instructions Patient InstructionsStephonLexy phillips MA - 11/15/2018 9:20 AM CST Preventive Health Recommendations Male Ages 21 - 25 Yearly exam: ?? See your health care provider every year in order to o Review health changes. o Discuss preventive care. o Review your medicines if your doctor has prescribed any. ??? You should be tested each year for STDs (sexually transmitted diseases). ??? Talk to your provider about cholesterol testing. ??? If you are at risk for diabetes, you should have a diabetes test (fasting glucose). Shots: Get a flu shot each year. Get a tetanus shot every 10 years. Nutrition: ??? Eat at least 5 servings of fruits and vegetables daily. ??? Eat whole-grain bread, whole-wheat pasta and brown rice instead of white grains and rice. ??? Get adequate calcium and Vitamin D. Lifestyle ??? Exercise for at least 150 minutes a week (30 minutes a day, 5 days a week). This will help you control your weight and prevent disease. ??? Limit alcohol to one drink per day. ??? No smoking. ??? Wear sunscreen to prevent skin cancer. ??? See your dentist every six months for an exam and cleaning. Daily josenase Annalisa Silva SCHOOL COORDINATOR ROOM COORDINATOR documented in this encounter Progress Notes Annalisa Silva NP - 11/15/2018 9:20 AM CST SUBJECTIVE: CC: Seamus Barnes is an 23 year old male who presents for preventative health visit. Physical Annual: Getting at least 3 servings of Calcium per day: Yes Bi-annual eye exam: Yes Dental care twice a year: Yes Sleep apnea or symptoms of sleep apnea: Sleep apnea Diet: Regular (no restrictions) Frequency of exercise: 2-3 days/week Duration of exercise: 30-45 minutes Taking medications regularly: Yes Medication side effects: Other Additional concerns today: Yes PHQ-2 Total Score: 2 Today's PHQ-2 Score: PHQ-2 (??1999 Pfizer) 11/15/2018 Q1: Little interest or pleasure in doing things 1 Q2: Feeling down, depressed or hopeless 1 PHQ-2 Score 2 Q1: Little interest or pleasure in doing things Several days Q2: Feeling down, depressed or hopeless Several days PHQ-2 Score 2 Abuse: Current or Past(Physical, Sexual or Emotional)- No Do you feel safe in your environment? Yes Social History Tobacco Use ??? Smoking status: Passive Smoke Exposure - Never Smoker ??? Smokeless tobacco: Never Used ??? Tobacco comment: dad smokes outside Substance Use Topics ??? Alcohol use: Yes Comment: occasional Alcohol Use 11/15/2018 If you drink alcohol do you typically have greater than 3 drinks per day OR greater than 7 drinks per week? Yes Last PSA: No results found for: PSA Reviewed orders with patient. Reviewed health maintenance and updated orders accordingly - Yes BP Readings from Last 3 Encounters: 11/15/18 112/70 05/01/18 106/70 03/24/18 120/42 Wt Readings from Last 3 Encounters: 11/15/18 115.3 kg (254 lb 1.6 oz) 05/01/18 114.3 kg (252 lb) 03/24/18 116.1 kg (256 lb) Patient Active Problem List Diagnosis ??? Obesity [...] Take 1 tablet by mouth daily ??? [place]-3 Fatty Acids (FISH OIL OMEGA-3 PO) Take 1 capsule by mouth daily Reviewed and updated as needed this visit [...] chest pain, palpitations and peripheral edema. Gastrointestinal: Positive for heartburn. Negative for abdominal pain, constipation, diarrhea, hematochezia and nausea. Genitourinary: Negative for dysuria, frequency, genital sores, hematuria and urgency. Musculoskeletal: Negative for arthralgias, joint swelling and myalgias. Skin: Negative for rash. Neurological: Negative for dizziness, weakness, headaches and paresthesias. Psychiatric/Behavioral: Negative for mood changes. The patient is nervous/anxious. CONSTITUTIONAL: NEGATIVE for fever, chills, change in weight EYES: NEGATIVE for vision changes or irritation ENT: POSITIVE for enlarged tonsils, possible sleep apnea RESP: NEGATIVE for significant cough or SOB CV: NEGATIVE for chest pain, palpitations or peripheral edema GI: NEGATIVE for nausea, abdominal pain, heartburn, or change in bowel habits male: negative for dysuria, hematuria, decreased urinary stream, erectile dysfunction, urethral discharge MUSCULOSKELETAL: NEGATIVE for significant arthralgias or myalgia NEURO: NEGATIVE for weakness, dizziness or paresthesias PSYCHIATRIC: NEGATIVE for changes in mood or affect OBJECTIVE: BP 112/70 (BP Location: Right arm, Patient Position: Sitting, Cuff Size: Adult Large) Pulse (!) 40 Temp 97.5 ??F (36.4 ??C) (Oral) Resp 16 Ht 1.88 m (6' 2) Wt 115.3 kg (254 lb 1.6 oz) [id number]% BMI 32.62 kg/m?? Physical Exam GENERAL: healthy, alert and no distress HENT: ear canals and TM's normal, nose and mouth without ulcers or lesions, hypertrophic tonsils HENT: nasal turbinates red and boggy NECK: no adenopathy, no asymmetry, masses, or scars and thyroid normal to palpation RESP: lungs clear to auscultation - no rales, rhonchi or wheezes CV: bradycardia, normal S1 S2, no S3 or S4, no murmur, click or rub, peripheral pulses strong and noperipheral edema ABDOMEN: soft, nontender, no hepatosplenomegaly, no masses and bowel sounds normal PSYCH: mentation appears normal, affect normal/bright ASSESSMENT/PLAN: ICD-10-CM 1. Healthcare maintenance Z00.00 CBC with platelets Basic metabolic panel ALT Lipid Profile TSH with free T4 reflex 2. Need for prophylactic vaccination and inoculation against influenza Z23 FLU VACCINE, (RIV4) RECOMBINANT VILLALBA , IM (FluBlok, egg free) [75433]- >18 YRS (FM recommended 50-64 YRS) Vaccine Administration, Initial [63942] Flonase daily ENT f/u tonsils, apnea COUNSELING: Reviewed preventive health counseling, as reflected in patient instructions BP Readings from Last 1 Encounters: 11/15/18 112/70 Estimated body mass index is 32.62 kg/m?? as calculated from the following: Height as of this encounter: 1.88 m (6' 2). Weight as of this encounter: 115.3 kg (254 lb 1.6 oz). reports that he is a non-smoker but has been exposed to tobacco smoke. he has never used smokeless tobacco. Counseling Resources: ATP IV Guidelines Pooled Cohorts Equation Calculator FRAX Risk Assessment ICSI Preventive Guidelines Dietary Guidelines for Americans, 2009 USDA's MyPlate ASA Prophylaxis Lung CA Screening Annalisa Silva NP [facility] ROOM COORDINATOR Kalyn Worthington CMA - 11/15/2018 9:20 AM CST Injectable Influenza Immunization Documentation 1. Is the person to be vaccinated sick today? No 2. Does the person to be vaccinated have an allergy to a component of the vaccine? No Egg Allergy Algorithm Link 3. Has the person to be vaccinated ever had a serious reaction to influenza vaccine in the past? No 4. Has the person to be vaccinated ever had Guillain-Ramirez?? syndrome? No Form completed by Kalyn Collins CMA ROOM COORDINATOR documented in this encounter Nursing Notes Lexy Henry MA - 11/15/2018 9:20 AM CST Patient here for a physical and is fasting. ROOM COORDINATOR documented in this encounter Plan of Treatment Upcoming Encounters Date Type Specialty Care Team Description 11/04/2022 Office Visit Internal Medicine Marcy Ricketts APRN SCHOOL COORDINATOR [address] [place], [place] [address] (Wo rk) documented as of this encounter Procedures Procedure Name Priority Date/Time Associated Diagnosis Comme nts TSH WITH FREE T4 Routine 11/15/2018 10:03 AM Healthcare Resu lts for this REFLEX MAILROOM COORDINATOR maintenance procedure are i n the results section. LIPID PROFILE Routine 11/15/2018 10:03 AM Healthcare Results for this MAILROOM COORDINATOR maintenance procedure are i n the results section. ALT Routine 11/15/2018 10:03 AM Healthcare Results for this MAILROOM COORDINATOR maintenance procedure are i n the results section. BASIC METABOLIC Routine 11/15/2018 10:03 AM Healthcare Resul ts for this PANEL MAILROOM COORDINATOR maintenance procedure are i n the results section. CBC WITH PLATELETS Routine 11/15/2018 10:03 AM Healthcare Re sults for this MAILROOM COORDINATOR maintenance procedure are i n the results section. documented in this encounter Results TSH with free T4 reflex (11/15/2018 10:03 AM MAILROOM COORDINATOR) P athologist Signature TSH 3.56 0.40 - 4.00 11/16/2018 [facility] mU/L 10:57 AM MAILROOM COORDINATOR [facility] Specimen Anatomical Collection Method Collection Time Receive d Time (Source) Location / / Volume Laterality Blood specimen 11/15/2018 10:03 9 (specimen) AM MAILROOM COORDINATOR 10:08 AM MAILROOM COORDINATOR Annalisa Silva METAL MOLD DRESSER LAB - BLOOD ORDERABLES Performing Organization Address City/State/ZIP Code Phon e Number [facility] [address] [place] [address] (ABNORMAL) Lipid Profile (11/15/2018 10:03 AM MAILROOM COORDINATOR) Patholo gist Method Time Signature Cholesterol 193 <200 11/16/2018 [facility] mg/dL 10:47 AM [facility] Triglycerides 73 <150 11/16/2018 [place] mg/dL 10:47 AM [facility] HDL Cholesterol 49 >39 mg/dL 11/16/2018 [place] 10:51 AM [facility] LDL Cholesterol 129 (H) <100 11/16/2018 [place] Calculated mg/dL 10:51 AM [facility] Comment: Above desirable: ??100-129 mg/dl Borderline High: ??130-159 mg/dL High: ? 160-189 mg/dL Very high: ? >189 mg/dl Non HDL Cholesterol 144 (H) <130 mg/dL 11/16/2018 10:51 AM [facility] Comment: Above Desirable: ??130-159 mg/dl Borderline high: ??160-189 mg/dl High: ? 190-219 mg/dl Very high: ? >219 mg/dl Specimen Anatomical Collection Method Collection Time Receive d Time (Source) Location / / Volume Laterality Blood specimen 11/15/2018 10:03 9 (specimen) AM MAILROOM COORDINATOR 10:08 AM MAILROOM COORDINATOR Annalisa Silva METAL MOLD DRESSER LAB - BLOOD ORDERABLES Performing Organization Address City/[facility] Code Phon e Number [facility] [address] [place] [id number] ALT (11/15/2018 10:03 AM MAILROOM COORDINATOR) P athologist Signature ALT 39 0 - 70 U/L 11/16/2018 [facility] 10:47 AM [facility] Specimen Anatomical Collection Method Collection Time Receive d Time (Source) Location / / Volume Laterality Blood specimen 11/15/2018 10:03 9 (specimen) AM MAILROOM COORDINATOR 10:08 AM MAILROOM COORDINATOR Annalisa Silva METAL MOLD DRESSER LAB - BLOOD ORDERABLES Performing Organization Address City/[facility] Phon e Number [facility] [address], [place] [address] Basic metabolic panel (11/15/2018 10:03 AM [facility]) P athologist Signature Sodium 137 133 - 144 11/16/2018 [facility] mmol/L 10:27 AM [facility] Potassium 4.0 3.4 - 5.3 11/16/2018 [facility] mmol/L 10:27 AM [facility] Chloride 104 94 - 109 11/16/2018 [facility] mmol/L 10:27 AM [facility] Carbon Dioxide 28 20 - 32 11/16/2018 [facility] mmol/L 10:40 AM [facility] Anion Gap 5 3 - 14 11/16/2018 [facility] mmol/L 10:40 AM [facility] Glucose 87 70 - 99 11/16/2018 [facility] mg/dL 10:40 AM [facility] Urea Nitrogen 16 7 - 30 11/16/2018 [facility] mg/dL 10:40 AM [facility] Creatinine 1.04 0.66 - 11/16/2018 [facility] 1.25 mg/dL 10:40 AM [facility] GFR Estimate >90 >60 11/16/2018 [facility] mL/min/{1. 10:40 AM [facility] 73_m2} [facility] Comment: Non GFR Calc Starting 10/17/2018, serum creatinine ba sed estimated GFR (eGFR) will be calculated using the Chronic Kidney Dise [facility] Epidemiology Collaboration (CKD-EPI) equation. GFR Estimate If >90 >60 mL/min/{1.73_m2} 11/16/2018 10 :40 AM [facility] Black [facility] Comment: GFR Calc Starting 10/17/2018, serum creatinine ba sed estimated GFR (eGFR) will be calculated using the Chronic Kidney Dise [facility] Epidemiology Collaboration (CKD-EPI) equation. Calcium 9.7 8.5 - 10.1 mg/dL 11/16/2018 10:40 AM [facility] Specimen Anatomical Collection Method Collection Time Receive d Time (Source) Location / / Volume Laterality Blood specimen 11/15/2018 10:03 9 (specimen) AM MAILROOM COORDINATOR 10:08 AM MAILROOM COORDINATOR Annalisa Silva METAL MOLD DRESSER LAB - BLOOD ORDERABLES Performing Organization Address City/State/ZIP Code Phon e Number [facility] [address] [place] [address] CBC with platelets (11/15/2018 10:03 AM MAILROOM COORDINATOR) P athologist Signature WBC 5.8 4.0 - 11.0 11/15/2018 [facility] 10e9/L 11:51 AM [facility] RBC Count 4.79 4.4 - 5.9 11/15/2018 [place] 10e12/L 11:51 AM MAILROOM COORDINATOR [facility] Hemoglobin 15.5 13.3 - 11/15/2018 [facility] 17.7 g/dL 11:51 AM [facility] Hematocrit 46.3 40.0 - 11/15/2018 [facility] 53.0 % 11:51 AM [facility] MCV 97 78 - 100 11/15/2018 [facility] fl 11:51 AM MAILROOM COORDINATOR [facility] MCH 32.4 26.5 - 11/15/2018 [facility] 33.0 pg 11:51 AM MAILROOM COORDINATOR [facility] MCHC 33.5 31.5 - 11/15/2018 [facility] 36.5 g/dL 11:51 AM [facility] RDW 13.0 10.0 - 11/15/2018 [facility] 15.0 % 11:51 AM [facility] Platelet Count 220 150 - 450 11/15/2018 [facility] 10e9/L 11:51 AM [facility] Specimen Anatomical Collection Method Collection Time Receive d Time (Source) Location / / Volume Laterality Blood specimen 11/15/2018 10:03 9 (specimen) AM MAILROOM COORDINATOR 10:08 AM MAILROOM COORDINATOR Annalisa Silva METAL MOLD DRESSER LAB - BLOOD ORDERABLES Performing Organization Address City/State/ZIP Code Phon e Number [facility] [address] [place], [place] [address] [address] documented in this encounter Visit Diagnoses Diagnosis Healthcare maintenance - Primary Routine general medical examination at a health care facility Need for prophylactic vaccination and in oculation against influenza documented in this encounter Additional Health Concerns Assessment Noted Time PHQ-9 Depression Total Score: 5 09/08/2016 7:22 AM MAILROOM COORDINATOR documented as of this encounter Care Teams Cath Lab Radiology Technician Relationship Specialty Start Date End Date Annalisa Silva, PCP - General Nurse Practitioner - 08/26/15 04/10/19 METAL MOLD DRESSER [facility] [address] [place], [place] [phone] Annalisa Silva, PCP - Assigned PCP 09/12/16 11/18/18 METAL MOLD DRESSER [address] [place], [place] [phone] documented as of this encounter
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
--- OUTSIDE RECORDS SUMMARY | 2022-09-26 20:24 | XMS_ITS | Encounter Summary ---
:1995 Author Organization [facility] Address [address] [facility] [place] [address] Care Team Providers Name Role Phone Annalisa Silva NP Unavailable Annalisa Silva NP Primary Care Provider [phone] Marcy Ricketts APRN EDUCATION GENERAL MANAGER Unavailable [phone] Annalisa Silva NP Unavailable Vivina Darby MD Unavailable Tanya Lentz APRN EDUCATION GENERAL MANAGER Unavailable [phone] Reason for Visit Reason Onset Date Comments MH/CD Inpatient 04/11/2019 Encounter Details Date Type Department Care Team Description 04/11/2019 Telephone [facility] Generic, Behavioral MH/ CD Inpatient Behavioral Health In genoveva Sams MD [address] [place] [id number] Social History Tobacco Use Types Packs/Day Years [...] this encounter Miscellaneous Notes Telephone Encounter - Angelita Benavidez - 04/11/2019 12:35 AM CDT S: 24 y/o male presented to the [facility] ED with SI. Report by Thee (SEP) B: Hx anxiety, PTSD, SIB. SI, no specific plan. Pt reported onset of anxiety earlier in the evening.Pt has had 3-4 ER visits w/in the system since February and had been set up w/ OP resources and day treatment and was started on Effexor by his day treatment provider. Pt also reported panic attacks 1-2 times a day. Last instance of SIB about 1-2 months ago. Denies hallucinations, delusions, HI or substance abuse. Mother and sister provided collateral stating pt was found in the basement where the gun safe is kept and that he contemplated using the gun on himself. 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 Berkley/Isaias. Unit notified at 0104. Ed notified at 0105 documented in this encounter Plan of Treatment Upcoming Encounters Date Type Specialty Care Team Description 11/04/2022 Office Visit Internal Medicine Marcy Ricketts APRN EDUCATION GENERAL MANAGER [address] [place], [place] [address] (Wo rk) documented as of this encounter Visit Diagnoses Not on filedocumented in this encounter Additional Health Concerns Assessment Noted Time PHQ-9 Depression Total Score: 17 04/03/2019 10:15 AM C DT documented as of this encounter Care Teams Financial Systems Analyst Relationship Specialty Start Date End Date Annalisa Silva, PCP - General Nurse Practitioner - 04/11/19 [employer] [address] [place] [address] Annalisa Silva, Assigned PCP 11/26/18 0 [employer] [address] [place] [address] Marcy Ricketts, Assigned PCP 10/05/20 01/03/21 BROACH OPERATOR EDUCATION GENERAL MANAGER [address] [place], [place] [address] Annalisa Silva, Assigned PCP 01/04/21 [employer] [address] [place], [place] [phone] Vivian Darby MD Assigned Heart and 01/04/21 04/11/21 [address] [facility] [address] Vascular Provider [address] [place] [address] Tanya Lentz Assigned Heart and 04/12/21 CLAUDIO Mclain EDUCATION GENERAL MANAGER Vascular Provider [address] [place] [address] documented as of this encounter
--- OUTSIDE RECORDS SUMMARY | 2022-09-26 20:24 | XMS_ITS | Encounter Summary ---
:1995 Author Organization [facility] Address [address] [facility] [address] [place] [address] Care Team Providers Name Role Phone Annalisa Silva NP Primary Care Provider [phone] Annalisa Silva CHECK VIEWER Unavailable Reason for Visit Reason Comments Follow Up medication and psych appoint ment Encounter Details Date Type Department Care Team Description 04/03/2019 Office Visit [facility] Annalisa Silva anxiety disorder (Primary Dx); Clinic Meghan Yousif NP Current moderate episode of major depres sive disorder without prior episode (H) [address] [place], [place] [phone] Social History Tobacco Use Types Packs/Day Years [...] Reading Time Taken Comments Blood Pressure 116/62 04/03/2019 9:28 AM CDT Pulse 69 04/03/2019 9:28 AM CDT Temperature 36.4 ??C (97.5 ??F) 04/03/2019 9:28 AM CDT Respiratory Rate 16 04/03/2019 9:28 AM CDT Oxygen Saturation 100% 04/03/2019 9:28 AM CDT Inhaled Oxygen Concentration - - Weight 114.8 kg (253 lb) 04/03/2019 9:28 AM CDT Height 188 cm (6' 2) 04/03/2019 9:28 AM CDT Body Mass Index 32.48 04/03/2019 9:28 AM CDT documented in this encounter Progress Notes Annalisa Silva, BETTY - 04/03/2019 9:20 AM CDT Subjective Seamus Barnes is a 24 year old male who presents to clinic today for the following health issues: HPI Anxiety Follow-Up ?? How are you doing with your anxiety since your last visit? Worsened. Worrying about every thing, panic attacks, poor sleep ?? Are you having other symptoms that might be associated with anxiety? Yes: depression and insomnia ?? Have you had a significant life event? No ?? Are you feeling depressed?Yes ?? Do you have any concerns with your use of alcohol or other drugs? No ?? Seeing therapist weekly now ?? H/o anxiety, depression teen years, has tried zoloft, prozac, celexa, buspar in past Social History Tobacco Use ??? Smoking status: Never Smoker ??? Smokeless tobacco: Never Used ??? Tobacco comment: dad smokes outside Substance Use Topics ??? Alcohol use: Yes Drinks per session: 3 or 4 Binge frequency: Weekly Comment: occasional ??? Drug use: No JACKIE-7 SCORE 09/07/2016 Total Score 10 PHQ 09/07/2016 PHQ-9 Total Score 5 Q9: Thoughts of better off /self-harm past 2 weeks Not at all ?? Amount of exercise or physical activity: 6-7 days/week for an average of greater than 60 minutes ?? Problems taking medications regularly: No ?? Medication side effects: none ?? Diet: regular (no restrictions) Patient Active Problem List Diagnosis ??? Obesity [...] Outpatient Medications Medication Sig Dispense Refill ??? LORazepam (ATIVAN) 0.5 MG tablet Take 0.5-1 tablets (0.25-0.5 mg) by mouth every 6 hours as needed for anxiety 10 tablet 0 ??? Multiple Vitamins-Minerals (RALF MULTI MEN PO) Take 1 tablet by mouth daily ??? [place]-3 Fatty Acids (FISH OIL OMEGA-3 PO) Take 1 capsule by mouth daily ??? venlafaxine (EFFEXOR-XR) 75 MG 24 hr capsule Take 1 capsule (75 mg) by mouth daily 30 capsule 1 BP Readings from Last 3 Encounters: 04/03/19 116/62 04/01/19 139/59 03/29/19 (!) 149/92 Wt Readings from Last 3 Encounters: 04/03/19 114.8 kg (253 lb) 02/28/19 116.9 kg (257 lb 12.8 oz) 11/15/18 115.3 kg (254 lb 1.6 oz) Reviewed and updated as needed this visit by Provider Review of Systems ROS COMP: Constitutional, HEENT, cardiovascular, pulmonary, gi and gu systems are negative, except as otherwise noted. Objective BP 116/62 (BP Location: Right arm, Patient Position: Sitting, Cuff Size: Adult Large) Pulse 69 Temp 97.5 ??F (36.4 ??C) (Oral) Resp 16 Ht 1.88 m (6' 2) Wt 114.8 kg (253 lb) SpO2 100% BMI32.48 kg/m?? Body mass index is 32.48 kg/m??. Physical Exam GENERAL: alert PSYCH: mentation appears normal, affect flat, tearful and anxious Assessment & Plan ICD-10-CM 1. Generalized anxiety disorder F41.1 venlafaxine (EFFEXOR-XR) 75 MG 24 hr capsule 2. Current moderate episode of major depressive disorder without prior episode (H) F32.1 venlafaxine(EFFEXOR-XR) 75 MG 24 hr capsule BMI: Estimated body mass index is 32.48 kg/m?? as calculated from the following: Height as of this encounter: 1.88 m (6' 2). Weight as of this encounter: 114.8 kg (253 lb). F/u 1 month on meds, may use ativan prn but knows this is not nursing home. Continue counseling and call prn Annalisa Silva NP [facility] documented in this encounter Nursing Notes Lexy Henry MA - 04/03/2019 9:20 AM CDT Follow up on medication and psych appointment documented in this encounter Plan of Treatment Upcoming Encounters Date Type Specialty Care Team Description 11/04/2022 Office Visit Internal Medicine Marcy Ricketts APRN GEODESIST [address] [place], [place] [address] (Wo rk) documented as of this encounter Visit Diagnoses Diagnosis Generalized anxiety disorder - Primary Current moderate episode of major depres sive disorder without prior episode (H) documented in this encounter Additional Health Concerns Assessment Noted Time PHQ-9 Depression Total Score: 17 04/03/2019 10:15 AM C DT documented as of this encounter Care Teams Programmer Analyst Relationship Specialty Start Date End Date Annalisa Silva NP PCP - General Nurse Practitioner - Adult 08/26/15 [address] [employer] [place] [address] Annalisa Silva NP Assigned PCP 11/26/18 10/04/20 [address] [place] [address] documented as of this encounter
--- OUTSIDE RECORDS SUMMARY | 2022-09-26 20:25 | XMS_ITS | Encounter Summary ---
:1995 Author Organization [facility] Address [address] [place] [address] Care Team Providers Name Role Phone Annalisa Silva [employer]ER Primary Care Provider [phone] Reason for Visit Reason Comments Fever Nausea & Vomiting Abdominal Pain Auth/Cert Specialty Diagnoses / Procedures Referred By Contact Refer red To Contact Med Surg Diagnoses Pneumonia of right lower lobe due to infectious organism Pneumonia Rh Observation Dept [address] [place], [place] [address] Phone: Referral ID Status Reason Start Date Expiration Date Visits Requ ested Visits Authorized [id number] 04/12/2016 04/12/2017 1 1 Encounter Details Date Type Department Care Team Description 04/11/2016 - [facility] Linden Fotoe MD [facility] [address] [place], [place] [phone] Ear pain, right (Primary Dx); 04/14/2016 Encounter [facility] Andrew Fernandes MD [address] [place] [address] Pneumonia of right lower lobe due to inf ectious organism (H); Dept Sepsis, due to unspecified o rganism (H) [address] [place] [address] Social History Tobacco Use Types Packs/Day Years Used Date Smoking Tobacco: Passive Smoke Exposure - Never Smoker Smokeless Tobacco: Never Comments: dad smokes outside Alcohol Use Standard Drinks/Week Comments No 0 (1 standard drink = 0.6 oz pure alcoho l) Alcohol Habits Answer Date Recorded How often [...] Sign Reading Time Taken Comments Blood Pressure 134/67 04/14/2016 11:48 AM CDT Pulse 70 04/14/2016 8:13 AM CDT Temperature 37 ??C (98.6 ??F) 04/14/2016 11:48 AM CDT Respiratory Rate 16 04/14/2016 11:48 AM CDT Oxygen Saturation 93% 04/14/2016 11:48 AM CDT Inhaled Oxygen Concentration - - Weight 134.9 kg (297 lb 4.8 oz) 04/11/2016 10:25 PM CDT Height 190.5 cm (6' 3) 04/11/2016 10:25 PM CDT Body Mass Index 37.16 04/11/2016 10:25 PM CDT documented in this encounter Discharge Summaries Andrew Esposito MD - 04/14/2016 9:24 AM CDT [facility] Discharge Summary Name: Seamus Barnes Date of : 1995 Age: [age] year old Date of Discharge: 04/14/2016 Date of Admission: 04/11/2016 Primary Care Provider: Annalisa Silva Discharge Physician: Andrew Esposito MD Discharging Service: Hospitalist Date of Service (when I saw the patient): 04/14/2016 Discharge Diagnosis: Viral syndrome with superimposed bacterial pneumonia Other Diagnosis: none Discharge Disposition: Discharged to home Allergies: Allergies Allergen Reactions ??? Minocycline Itching and Rash Discharge Medications: Current Discharge Medication List CONTINUE these medications which have CHANGED Details cefdinir (OMNICEF) 300 MG capsule Take 1 capsule (300 mg) by mouth 2 times daily for 7 days Can use your previous prescription. Take twice daily for 7 more days, starting tomorrow Qty: 14 capsule, Refills: 0 Associated Diagnoses: Ear pain, right CONTINUE these medications which have NOT CHANGED Details diphenhydrAMINE (BENADRYL) 25 MG tablet Take 1 tablet (25 mg) by mouth every 6 hours as needed (withReglan for headache) Qty: 56 tablet, Refills: 0 metoclopramide (REGLAN) 5 MG tablet Take 1 tablet (5 mg) by mouth 4 times daily as needed For headache Qty: 240 tablet, Refills: 0 STOP taking these medications ondansetron (ZOFRAN ODT) 4 MG disintegrating tablet Comments: Reason for Stopping: Condition on Discharge: Discharge condition: Stable Discharge vitals: Blood pressure 141/70, pulse 70, temperature 97.4 ??F (36.3 ??C), temperature source Oral, resp. rate 16, height 1.905 m (6' 3), weight 134.854 kg (297 lb 4.8 oz), SpO2 93 %. Code status on discharge: Full Code History of Illness: See detailed admission note for full details. 21 year old male who presents for the fifth time for evaluation for fevers, vomiting, loose stool and weakness. He states symptoms began on 04/07 which just feeling unwell and then he developed a fever on 04/08 that hasn't gone away. He has a headache, slight cough and some loose stool, and a little vomiting. He denies shortness of breath, stomach pain, rash, open sores, or urinary symptoms. Today he wasseen in urgent care and started on Cefinir for possible ear infection. He has been otherwise healthyup until this recent illness. He denies drinking, smoking and drug use. He does not take any medications regularly and has had no unusual travel. He works at [employer]. ?? Significant Physical Exam Findings: Patient feels much better. States he feels great. Has been afebrile for >24 hours. s1s2 rrr, lungs clear, abdo +BS Procedures: none Imaging: Results for orders placed or performed during the hospital encounter of 04/11/16 CT Abdomen Pelvis w/o Contrast Narrative CT ABDOMEN AND PELVIS WITHOUT CONTRAST 04/11/2016 6:47 PM HISTORY: RLQ pain. COMPARISON: 03/05/2008. TECHNIQUE: Volumetric helical acquisition of CT images from the lung bases through the symphysis pubis without intravenous contrast. Radiation dose for this scan was reduced using automated exposure control, adjustment of the mA and/or kV according to patient size, or iterative reconstruction technique. FINDINGS: Extensive right lower lobe infiltrate. The liver, spleen, adrenal glands, kidneys, and pancreas demonstrate no worrisome focal lesion in the absence of intravenous contrast. There are no dilated loops of small intestine or large bowel to suggest ileus or obstruction. Appendix is normal. Minimal hydroureter, of uncertain clinical significance. Clinical correlation to exclude pyelonephritis needed. No renal, ureteral, or bladder stones. Nonaneurysmal aorta. No free air or free fluid. Impression IMPRESSION: 1. Extensive right lower lobe infiltrate compatible with pneumonia. 2. Hydronephrosis on the right without ureteral stones. Clinical correlation needed to exclude right-sided pyelonephritis. DYLAN EASON MD XR Chest 2 Views Value Radiology Abnormalities See report (Urgent) Narrative CHEST TWO VIEWS 04/13/2016 9:30 AM HISTORY: Pneumonia followup. COMPARISON: 04/10/2016. FINDINGS: Marked interval worsening in right base infiltrate since the comparison study. Left lung clear. The cardiac silhouette is not enlarged. Pulmonary vasculature is unremarkable. Impression IMPRESSION: Markedly worse right lower lobe infiltrate since the comparison study. Probable right middle lobe involvement as well. [Urgent Result: See report] DYLAN EASON MD Consultations: No consultations were requested during this admission. Significant Lab Results: Recent Labs Lab 04/14/16 0600 04/13/16 0620 04/12/16 0630 WBC 6.8 8.9 9.8 HGB 13.1* 12.7* 13.9 HCT 37.3* 36.4* 39.8* MCV 93 94 95 PLT 195 165 145* NA 140 04/14/2016 NA 136 04/12/2016 NA 131 04/11/2016 CHLORIDE 107 04/14/2016 CHLORIDE 103 04/12/2016 CHLORIDE 97 04/11/2016 BUN 6 04/14/2016 BUN 7 04/12/2016 BUN 6 04/11/2016 POTASSIUM 3.3 04/14/2016 POTASSIUM 4.0 04/12/2016 POTASSIUM 3.7 04/11/2016 CO2 27 04/14/2016 CO2 28 04/12/2016 CO2 28 04/11/2016 CR 0.84 04/14/2016 CR 1.00 04/12/2016 CR 1.06 04/11/2016 Pending Results: Unresulted Labs Ordered in the Past 30 Days of this Admission Date and Time Order Name Status Description 04/13/2016 2149 Fungus culture In process 04/13/2016 2149 Sputum Culture Aerobic Bacterial In process 04/13/2016 1042 Fungal antibodies In process 04/13/2016 1042 Coccidioides antibody In process 04/13/2016 1042 Blastomyces antibody ID In process 04/13/2016 1042 Aspergillus antibody In process 04/12/2016 0745 Blood culture Preliminary 04/12/2016 0745 Blood culture Preliminary 04/10/2016 2204 CSF Culture Aerobic Bacterial Preliminary 04/10/2016 0515 Blood culture Preliminary 04/10/2016 0431 Blood culture Preliminary Discharge Instructions and Follow-Up: Discharge diet: Active Diet Order Regular Diet Adult Diet Discharge activity: Activity as tolerated Discharge follow-up: Follow up with primary care provider in 5-7 days Outpatient therapy: None Home Care agency: None Other instructions: cxr in 4-6 weeks Hospital Course: Patient was admitted to the Obs Unit. He was started on Azith and ceftriaxone for community acquiredPNA. Patient continued to be febrile for the first 36 hours. Patient had a neg sputum culture, neg for flu. His admitted abdo CT showed RLL PNA. A CXR on showed RLL/RML PNA. He was flipped to inpt status. Antibiotics were continued. Fungal serology/culture were sent and still are pending. Patient is now afebrile and feeling much better. Again this was likely a viral syndrome with a superimposed community acquired PNA. He will complete a 5 day course of azithromycin (sent home with one 250mg tab to take tomorrow). He had already received and filled a prescription for cefdinir prior to admission. He will complete 7 more days of this which will complete about a 12 day course. Total time spent in face to face contact with the patient and coordinating discharge was: 40 Minutes. Andrew Esposito MD Pager: [phone] documented in this encounter Discharge Instructions AttachmentsThe following attachments cannot be sent through Care Everywhere. ADULT, PNEUMONIA (FINNISH)documented in this encounter Medications at Time of Discharge Medication Sig Dispensed Refills Start Date End Date cefdinir (OMNICEF) 300 MG Take 1 capsule 14 capsule 0 201504/21/2016 capsuleIndications: Ear (300 mg) by mouth pain, right 2 times daily for 7 days Can use your previous prescription. Take twice daily for 7 more days, starting tomorrow diphenhydrAMINE (BENADRYL) Take 1 tablet (25 56 tablet 0 04/22/2016 25 MG tablet mg) by mouth every 6 hours as needed (with Reglan for headache) metoclopramide (REGLAN) 5 Take 1 tablet (5 240 tablet 0 03/3104/22/2016 MG tablet mg) by mouth 4 times daily as needed For headache documented as of this encounter Progress Notes Kirsten Salinas RN - 04/14/2016 7:54 AM CDT Infection Prevention: Droplet Precautions discontinued, standard precautions sufficient. Please contact Infection Prevention with any questions/concerns at *[phone]. KEYANNA Yancey Kandace Hung, RT - 04/13/2016 3:15 PM CDT RT- patient given hypertonic saline nebulizer for sputum induction. Small amount of sputum coughed up by patient and collected in sputum cup. Encouraged patient to collect sputum if he does produce more. RT Dahlia 04/13/2016 3:23 PM Andrew Esposito MD - 04/13/2016 9:04 AM CDT [facility] Hospitalist Progress Note Date of Service (when I saw the patient): 04/13/2016 Assessment and Plan Seamus Barnes is a 21 year old healthy male who works at [employer] who was admitted on 04/11/2016 with viral syndrome/bacterial PNA 1. Neuro- headache:Tylenol/motrin, Had LP in ED on 04/10 which was negative 2. CVS- no issues 3. Pulmonary- likely bacterial PNA superimposed on viral syndrome. Currently on treatment for CAP with ceftriaxone and azithromycin (changed azith to IV). Legionella urinary antigen was neg- covered anyway with azith. Sputum culture negative. CXR on 04/10 was clear, CT of abdo on 04/11 showed extensive RLL PNA. Will repeat 2 view CXR today to re-assess. [place] was neg. Was never checked for influenza. Will order flu swab 4. GI- regular diet. Had mildly elevated LFTs on ED visit on 04/10, consistent with a viral syndrome.These were improving, but were not checked on this admission. Will check LFTs 5. ID- treating CAP with azith/ceftriaxone. HIV checked and was negative. Blood cultures negative. 6. Renal- cont IVF while spiking temp/decreased PO. Check chem 7 in am 7. Heme/onc- no issues 8. Endo- not diabetic 9. Musculoskel- ambulate 10. Prophylaxis- ambulate 11. Continues with high fevers, need for IV antibiotics and further work-up. Will transfer to inpatient status. Addendum: was considering transfer to a facility with pulmonary support in case patient does not improve and may need bronch. However, I spoke with our ICU physician (Dr. Ellisno) who is here in the ICU through the weekend. She is now aware of the patient and will be available for bronchoscopy if it becomes necessary. Will send fungal studies (coccidio, aspergillus, blasto) and will have respiratory come and induce a sputum for culture. Code Status: Full Code Disposition: Expected discharge unclear Andrew Esposito Interval History Patient still feels poorly. Has headache, body aches, generalized weakness, tiredness. Feels hot. Noabdo pain. Non-productive cough. Tmax 103. Had multiple loose/watery stools yesterday. None today -Data reviewed today: I reviewed all new labs and imaging results over the last 24 hours. I personally reviewed the chest x-ray image(s) showing possibel RLL haziness on 04/10, but no distinct infiltrate. Today's xray showing: R sided infiltrate >1/2 lung Physical Exam Temp: 99.6 ??F (37.6 ??C) Temp src: Oral BP: 147/70 mmHg Pulse: 72 Heart Rate: 97 Resp: 16 SpO2: 94 % O2 Device: None (Room air) Oxygen Delivery: 1 LPM Filed Vitals: 04/11/16 2225 Weight: 134.854 kg (297 lb 4.8 oz) Vital Signs with Ranges Temp: [98.4 ??F (36.9 ??C)-103.6 ??F (39.8 ??C)] 99.6 ??F (37.6 ??C) Pulse: [64-99] 72 Heart Rate: [97] 97 Resp: [16-20] 16 BP: (125-158)/(48-76) 147/70 mmHg SpO2: [88 %-96 %] 94 % I/O last 3 completed shifts: In: 1020 [P.O.:1020] Out: 800 [Urine:800] Constitutional: Awake, alert, cooperative, no apparent distress Respiratory: Clear to auscultation bilaterally, no crackles or wheezing Cardiovascular: Regular rate and rhythm, normal S1 and S2, and no murmur noted Abdomen: Normal bowel sounds, soft, non-distended, non-tender Skin: No rashes, no cyanosis, dry to touch Neuro: Alert and oriented x3, no weakness, numbness, memory loss Extremities: No edema, normal range of motion Other(s): All other systems: Negative Medications ??? NaCl 100 mL/hr at 04/13/16 0606 ??? azithromycin 500 mg Intravenous Q24H ??? sodium chloride (PF) 3 mL Intracatheter Q8H ??? cefTRIAXone 2 g Intravenous Q24H Data Recent Labs Lab 04/13/16 0620 04/12/16 0630 04/11/16 1732 04/10/16 1919 WBC 8.9 9.8 9.3 < > 8.5 HGB 12.7* 13.9 14.0 < > 14.7 MCV 94 95 93 < > 95 PLT 165 145* 145* < > 148* NA -- 136 131* -- 136 POTASSIUM -- 4.0 3.7 -- 3.7 CHLORIDE -- 103 97 -- 102 CO2 -- 28 28 -- 29 BUN -- 7 6* -- 8 CR -- 1.00 1.06 -- 1.18 ANIONGAP -- 5 6 -- 5 KASH -- 8.9 8.6 -- 8.5 GLC -- 117* 122* -- 108* ALBUMIN -- -- 3.4 -- 3.7 PROTTOTAL -- -- 7.2 -- 7.3 BILITOTAL -- -- 0.8 -- 0.7 ALKPHOS -- -- 109 -- 128 ALT -- -- 71* -- 97* AST -- -- 26 -- 38 < > = values in this interval not displayed. No results found for this or any previous visit (from the past 24 hour(s)). Monik Cornell PA - 04/12/2016 9:45 AM CDT [facility] Observation Unit Progress Note Interval History: Continues to feel poorly. T 104.5 deg overnight, currently down to 100.2 deg w/ acetaminophen/ibuprofen. Chills. Has a cough, occasionally productive. Ongoing headache (no neck pain/stiffness), nasal congestion, mild bilateral ear pain. No urinary symptoms. Sexually active in a monogamous relationship. No recent travel. 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 No sick contacts. Has done some binge drinking in the past but nothing over past month - no emesis/aspiration risk. Exam: BP 127/57 mmHg Pulse 101 Temp(Src) 100.2 ??F (37.9 ??C) (Oral) Resp 20 Ht 1.905 m (6' 3) Wt 134.854 kg (297 lb 4.8 oz) BMI 37.16 kg/m2 SpO2 92% GENERAL: Alert and oriented x 3. Lying in bed, appears uncomfortable but non toxic. Shaking chills at times. HEENT: Anicteric sclera. Mucous membranes moist. CV: RRR. S1, S2. No murmurs appreciated. RESPIRATORY: Effort normal on room air. Lungs slightly diminished right base, otherwise clear. GI: Abdomen soft, non distended, non tender. No CVA tenderness. EXTREMITIES: No peripheral edema. Intact bilateral pedal pulses. SKIN: No jaundice. No rashes. Data: Today's labs reviewed - CBC, BMP Unresulted Labs Ordered in the Past 30 Days of this Admission Date and Time Order Name Status Description 04/12/2016 0807 HIV Antigen Antibody Combo In process 04/12/2016 0745 Blood culture In process 04/12/2016 0745 Blood culture In process 04/11/2016 2258 Sputum Culture Aerobic Bacterial In process 04/10/2016 2204 CSF Culture Aerobic Bacterial Preliminary 04/10/2016 0515 Blood culture Preliminary 04/10/2016 0502 Beta strep group A culture Preliminary 04/10/2016 0431 Blood culture Preliminary Medications: MAR reviewed. Assessment & Plan: Seamus Barnes is a 21 year old previously healthy man admitted to OBS unit with RLL pneumonia afterhaving 5 urgent care/ED visits in as many days for fevers up to 104 degrees. #RLL PNA. CT C/A/P w/ extensive RLL infiltrate compatible w/ PNA (also showed hydronephrosis on right side, no stones but UA neg and no flank pain). T 104.5 deg last night, down to 99-100 w/ alternating acetaminophen/ibuprofen. O2 sats 92% on RA. Unexpected that this young otherwise healthy patient would have such an aggressive course with community acquired pneumonia. Had LP on 04/10 w/ 2 WBC. No travel or sick contacts; works at [employer] moving trees/plants. - Ok to continue Rocephin and azithromycin day #2 for now, low threshold to broaden abx coverage if not improving clinically. - Blood (04/10 neg, repeated today) and sputum cx (gram stain w/ mixed gram +/- bacteria) pending. - HIV screen sent. - Will check urine legionella Ag given previous report of some loose stools (? exposure to water system at [facility]). - Would consider ID consult if not clinically improving by tomorrow. Could also given consideration to fungal studies w/ soil exposure at [employer] although presentation not entirely consistent. Consults: none Disposition: home when fever curve down trended vs. transfer to inpatient status tomorrow if not improving/further ID workup needed Mother updated at bedside. Discussed w/ Dr. Esposito. Signed: Monik Cornell PA-C Hospitalist Service documented in this encounter H&P Notes Kandace Barnes PA-C - 04/11/2016 9:39 PM CDT History and Physical Seamus Barnes Date of : 1995 Age: [age] year old Date of Admission: 04/11/2016 Primary care provider: Annalisa Silva Assessment and Plan: Seamus Barnes is a 21 year old healthy male who presents with a four day history of fever and weakness. This was his fifth visit the the ED/urgent care. ED sign out by Dr. Foote and chart review performed. 1. RLL pneumonia He describes a slight cough and fevers up to 104 since 04/08. He denies sputum production and shortness of breath. On prior work up he has had a negative lumbar puncture, negative UA, Negative CXR negative mono/strep screen that were all negative. CT of abdomen tonight revealed a RLL pneumonia and his oxygen saturation was as low as 92%. WBC is normal. Given this was his fifth visit since symptoms started and he was mildly hypoxic the ED felt he should stay overnight to ensure improvement. A/P- Community acquired pneumonia in young healthy male with mild hypoxia. Started on ceftriazone/azithromycin and will use oxygen support if needed. Lungs sounded clear and he does not require nebulizers or cough suppressants. Will have supportive fluids tonight and tylenol/ibuprofen/nausa meds available. Tympanic membranes are red and he was started on Cefdinir by urgent care this AM. That is on hold for now and at discharge it can be decided if he should continue. Code: Full code VTE prophylaxis: Ambulation Disposition: Observation Chief Complaint: Fever History of Present Illness: Seamus Barnes is a 21 year old male who presents for the fifth time for evaluation for fevers, vomiting, loose stool and weakness. He states symptoms began on 04/07 which just feeling unwell and then he developed a fever on 04/08 that hasn't gone away. He has a headache, slight cough and some loose stool, and a little vomiting. He denies shortness of breath, stomach pain, rash, open sores, or urinary symptoms. Today he was seen in urgent care and started on Cefinir for possible ear infection. He has been otherwise healthy up until this recent illness. He denies drinking, smoking and drug use. He does not take any medications regularly and has had no unusual travel. He works at [employer]. Past Medical History: History reviewed. No pertinent past medical history. Past Surgical History: History reviewed. No pertinent past surgical history. Social History: History Social History ??? Marital Status: Single Spouse Name: N/A ??? Number of Children: N/A ??? Years of Education: N/A Occupational History ??? Not on file. Social History Main Topics ??? Smoking status: Passive Smoke Exposure - Never Smoker ??? Smokeless tobacco: Never Used Comment: dad smokes outside ??? Alcohol Use: No ??? Drug Use: No ??? Sexual Activity: Yes Comment: saúl april 2013 Other Topics Concern ??? Not on file Social History Narrative Family History: Family History Problem Relation Age of Onset ??? Family History Negative Mother ??? Family History Negative Father Allergies: Allergies Allergen Reactions ??? Minocycline Itching and Rash Medications: Prior to Admission medications Medication Sig Last Dose Taking? Auth Provider cefdinir (OMNICEF) 300 MG capsule Take 1 capsule (300 mg) by mouth 2 times daily 04/11/2016 at PM (1st dose) Yes Adarsh Craft MD ondansetron (ZOFRAN ODT) 4 MG disintegrating tablet Take 1 tablet (4 mg) by mouth every 8 hours as needed for nausea 04/11/2016 at 0845 Yes Evelio Johnson MD diphenhydrAMINE (BENADRYL) 25 MG tablet Take 1 tablet (25 mg) by mouth every 6 hours as needed (withReglan for headache) 04/11/2016 at 1115 Yes Vonnie Cuadra PA-C metoclopramide (REGLAN) 5 MG tablet Take 1 tablet (5 mg) by mouth 4 times daily as needed For headache 04/11/2016 at 1115 Yes Vonnie Cuadra PA-C Review of Systems: A Comprehensive greater than 10 system review of systems was carried out. Pertinent positives and negatives are noted above. Otherwise negative for contributory information. Physical Exam: Blood pressure 105/61, temperature 98.8 ??F (37.1 ??C), temperature source Oral, resp. rate 18, [id number] %. Exam: GENERAL: Comfortable but appears tired. PSYCH: pleasant, oriented, No acute distress. HEENT: PERRLA. Normal conjunctiva, normal hearing, nasal mucosa and Oropharynx are normal. NECK: Supple, no neck vein distention, adenopathy or bruits, normal thyroid. HEART: Normal S1, S2 with no murmur, no pericardial rub, gallops or S3 or S4. LUNGS: Clear to auscultation, normal Respiratory effort. No wheezing, rales or ronchi. ABDOMEN: Soft, no hepatosplenomegaly, normal bowel sounds. Non-tender, non distended. EXTREMITIES: No pedal edema, +2 pulses bilateral and equal. SKIN: Dry to touch, No rash, wound or ulcerations. NEUROLOGIC: CN 2-12 grossly intact, sensation is intact with no focal deficits. Data: Recent Labs Lab 04/11/16 1732 04/11/16 1219 04/10/16 1919 WBC 9.3 10.0 8.5 HGB 14.0 14.5 14.7 HCT 39.3* 41.3 42.9 MCV 93 95 95 PLT 145* 138* 148* Recent Labs Lab 04/11/16 1732 04/10/169 04/10/16 0502 NA 131* 136 137 POTASSIUM 3.7 3.7 3.8 CHLORIDE 97 102 104 CO2 28 29 26 ANIONGAP 6 5 7 GLC 122* 108* 107* BUN 6* 8 13 CR 1.06 1.18 1.16 GFRESTIMATED 89 79 80 GFRESTBLACK >90African [place]an GFR Calc >90African [place] GFR Calc >90African [place] GFR Calc KASH 8.6 8.5 8.4* PROTTOTAL 7.2 7.3 7.2 ALBUMIN 3.4 3.7 3.7 BILITOTAL 0.8 0.7 0.6 ALKPHOS 109 128 123 AST 26 38 47* ALT 71* 97* 112* Recent Results (from the past 24 hour(s)) CT Abdomen Pelvis w/o Contrast Narrative CT ABDOMEN AND PELVIS WITHOUT CONTRAST 04/11/2016 6:47 PM HISTORY: RLQ pain. COMPARISON: 03/05/2008. TECHNIQUE: Volumetric helical acquisition of CT images from the lung bases through the symphysis pubis without intravenous contrast. Radiation dose for this scan was reduced using automated exposure control, adjustment of the mA and/or kV according to patient size, or iterative reconstruction technique. FINDINGS: Extensive right lower lobe infiltrate. The liver, spleen, adrenal glands, kidneys, and pancreas demonstrate no worrisome focal lesion in the absence of intravenous contrast. There are no dilated loops of small intestine or large bowel to suggest ileus or obstruction. Appendix is normal. Minimal hydroureter, of uncertain clinical significance. Clinical correlation to exclude pyelonephritis needed. No renal, ureteral, or bladder stones. Nonaneurysmal aorta. No free air or free fluid. Impression IMPRESSION: 1. Extensive right lower lobe infiltrate compatible with pneumonia. 2. Hydronephrosis on the right without ureteral stones. Clinical correlation needed to exclude right-sided pyelonephritis. MD Kandace REGAN PA-C Associated attestation - Andrew Esposito MD - 04/12/2016 12:05 PM CDT Physician Attestation I, Andrew Esposito, have reviewed and discussed with the advanced practice provider their history, physical and plan for Seamus Barnes. I did not participate in a shared visit by interviewing or examining the patient and this should be billed as an advanced practice provider only visit. Andrew Esposito Date of Service (when I saw the patient): I did not personally see this patient today. documented in this encounter ED Notes Deidra Mac RN - 04/14/2016 12:20 PM CDT OBSERVATION patient END time: 04/14/16 1220 Jazlyn Cabello RN - 04/14/2016 9:30 AM CDT PRIMARY DIAGNOSIS: Pneumonia OUTPATIENT/OBSERVATION GOALS TO BE MET BEFORE DISCHARGE: 1. Vital signs stable? Yes 2. Labs stable? Yes, Sputum culture sent and pending along with fungus culture 3. Oxygen saturations at baseline or >/= 92% or at previous home O2 therapy level? Yes. O2 sats WDL on room air 4. Short term supplemental O2 needed for use with activity at home? N/A 5. Improvement in clinical condition? No, worsening chest xray and coughing - productive, producing yellow sputum, though pt states he is feeling better 6. At or near baseline ADLs? Yes - Independent 7. Tolerating adequate PO diet and medications? Yes Vitals stable. Pt alert and oriented x4. Pt independent with cares. Pt still has frequent cough, denies need for intervention. Pt's lungs diminished. Pt reports feeling better today. Plan for d/c this morning. Will continue to monitor and provide supportive cares. Abigail Kate RN - 04/14/2016 4:21 AM CDT PRIMARY DIAGNOSIS: Pneumonia OUTPATIENT/OBSERVATION GOALS TO BE MET BEFORE DISCHARGE: 1. Vital signs stable? Yes, low grade fever at 99.5, advil given 2. Labs stable? Yes, Sputum culture sent and pending along with fungus culture 3. Oxygen saturations at baseline or >/= 92% or at previous home O2 therapy level? Yes. Pt SpO2 94% on room air 4. Short term supplemental O2 needed for use with activity at home? N/A 5. Improvement in clinical condition? No, worsening chest xray and coughing - productive, producing yellow sputum, though pt states he is feeling better 6. At or near baseline ADLs? Yes - Independent 7. Tolerating adequate PO diet and medications? Yes Pt c/o mild headache, coughing intermittently. Restoril given for sleep per pt request. Pt accidentally pulled IV out, new IV placed in left hand - IV fluids running. Will continue to monitor and provide supportive cares. Abigail Kate RN - 04/13/2016 11:50 PM CDT PRIMARY DIAGNOSIS: Pneumonia OUTPATIENT/OBSERVATION GOALS TO BE MET BEFORE DISCHARGE: 1. Vital signs stable? Yes, afebrile at 98.8 PO 2. Labs stable? Yes, Sputum culture sent and pending along with fungus culture 3. Oxygen saturations at baseline or >/= 92% or at previous home O2 therapy level? Yes. Pt SpO2 93% on room air 4. Short term supplemental O2 needed for use with activity at home? Not applicable 5. Improvement in clinical condition? No, worsening chest xray and coughing - productive, producing yellow sputum 6. At or near baseline ADLs? Yes - Independent 7. Tolerating adequate PO diet and medications? Yes Pt states headache down to 1/10. Pt coughing intermittently, sputum sample sent and pending. Pt reports feeling better, less tired. Pt states he would like Restoril before bed again tonight to help himsleep. Will continue to monitor and provide supportive cares. T Carolyn Pradhan RN - 04/13/2016 8:00 PM CDT PRIMARY DIAGNOSIS: Pneumonia OUTPATIENT/OBSERVATION GOALS TO BE MET BEFORE DISCHARGE: 1. Vital signs stable? Yes, temp stable, low grade fever this AM 2. Labs stable? Yes, Need a new sputum culture. Fungal studies pending 3. Oxygen saturations at baseline or >/= 92% or at previous home O2 therapy level? Yes. Pt SpO2 93-94% on room air 4. Short term supplemental O2 needed for use with activity at home? Not applicable 5. Improvement in clinical condition? No, worsening chest xray and coughing - productive, pt. Reports less fatigue 6. At or near baseline ADLs? Yes - Independent 7. Tolerating adequate PO diet and medications? Yes - ate lunch Pt c/o DIAZ rated 7/10- PRN Tylenol given. continued coughing - pt. Working on sputum collection, Flu swab neg, fungal studies pending. Overall, pt. Reports feeling improved from this morning - energy levels better. Will continue to monitor. Heriberto Richardson RN - 04/13/2016 3:30 PM CDT PRIMARY DIAGNOSIS: Pneumonia OUTPATIENT/OBSERVATION GOALS TO BE MET BEFORE DISCHARGE: 1. Vital signs stable? Yes, temp stable, low grade fever this AM 2. Labs stable? Yes, pending flu swab, sputum culture, and fungal studies 3. Oxygen saturations at baseline or >/= 92% or at previous home O2 therapy level? Yes. Pt SpO2 93-94% on room air 4. Short term supplemental O2 needed for use with activity at home? Not applicable 5. Improvement in clinical condition? No, worsening chest xray and coughing - productive, pt. Reports less fatigue 6. At or near baseline ADLs? Yes - Independent 7. Tolerating adequate PO diet and medications? Yes - ate lunch Pt. Reports headache improved from this morning, continued coughing - pt. Working on sputum collection, waiting for flu swab results and fungal studies. Overall, pt. Reports feeling improved from this morning - energy levels better and headache improved Heriberto Richardson RN - 04/13/2016 11:55 AM CDT PRIMARY DIAGNOSIS: Pneumonia OUTPATIENT/OBSERVATION GOALS TO BE MET BEFORE DISCHARGE: 1. Vital signs stable? No-intermittent fevers overnight, low grade 99.6 this AM, temp 98.3 now 2. Labs stable? Yes, checking flu swab, sputum culture, and fungal studies 3. Oxygen saturations at baseline or >/= 92% or at previous home O2 therapy level? Yes. Pt SpO2 93% on room air 4. Short term supplemental O2 needed for use with activity at home? Not applicable 5. Improvement in clinical condition? No, Pt still having fevers and coughing - productive per pt. But unseen, patient asked to save, pt. Reports fatigue and headache 6. At or near baseline ADLs? Yes - pt. SBA for walk around the hallways 7. Tolerating adequate PO diet and medications? Yes - ate lunch Pt. Reports headache improved from this morning, ibuprofen given, coughing improved after tessalon, reports fatigue, tylenol given for headache, ibuprofen overnight for temp of 103.5, reports continueddiarrhea - 1 episode overnight - pt. Told to notify nurse if having more. Waiting for sputum cultureresults, chest xray results and flu swab results. Nori Beck - 04/13/2016 11:40 AM CDT Walked patient in the hallway, complaints of SOB near the end otherwise no complaints. Heriberto Richardson RN - 04/13/2016 8:40 AM CDT PRIMARY DIAGNOSIS: Pneumonia OUTPATIENT/OBSERVATION GOALS TO BE MET BEFORE DISCHARGE: 1. Vital signs stable? No-intermittent fevers overnight, temp 99.6 now 2. Labs stable? Yes - MD checking hepatic panel 3. Oxygen saturations at baseline or >/= 92% or at previous home O2 therapy level? Yes. Pt SpO2 94% on room air 4. Short term supplemental O2 needed for use with activity at home? Not applicable 5. Improvement in clinical condition? No, Pt still having fevers and coughing - non productive, pt. Reports fatigue and headache 6. At or near baseline ADLs? No, SOB on exertion, fatigue 7. Tolerating adequate PO diet and medications? Yes. Poor appetite Pt. Reports headache, coughing frequently, reports fatigue, tylenol given for headache, ibuprofen overnight for temp of 103.5, reports continued diarrhea - 1 episode overnight Abigail Kate RN - 04/13/2016 4:18 AM CDT PRIMARY DIAGNOSIS: Pneumonia OUTPATIENT/OBSERVATION GOALS TO BE MET BEFORE DISCHARGE: 1. Vital signs stable? No-intermittent fevers. Max temperature so far this shift = 103.5 PO, 2. Labs stable? YES 3. Oxygen saturations at baseline or >/= 92% or at previous home O2 therapy level? Yes. Pt SpO2 94% on room air, pt applies O2 for comfort intermittently. 4. Short term supplemental O2 needed for use with activity at home? Not applicable 5. Improvement in clinical condition? No, Pt still having fevers and coughing, and needing O2 for comfort. 6. At or near baseline ADLs? No, SOB on exertion 7. Tolerating adequate PO diet and medications? Yes. Poor appetite Pt coughing frequently - tessalon perles given. Pt maximum temperature so far was 103.5 PO. Restorilgiven for inability to sleep. Abigail Kate RN - 04/13/2016 12:40 AM CDT PRIMARY DIAGNOSIS: Pneumonia OUTPATIENT/OBSERVATION GOALS TO BE MET BEFORE DISCHARGE: 1. Vital signs stable? No-intermittent fevers. Max temperature so far this shift = 103.5 PO, ibrufopen given, ice packs applied to forehead, groin and axillas 2. Labs stable? YES 3. Oxygen saturations at baseline or >/= 92% or at previous home O2 therapy level? Yes. Pt SpO2 94% on room air, pt applies O2 for comfort intermittently. 4. Short term supplemental O2 needed for use with activity at home? Not applicable 5. Improvement in clinical condition? No, Pt still having fevers and coughing, and needing O2 for comfort. 6. At or near baseline ADLs? No, SOB on exertion 7. Tolerating adequate PO diet and medications? Yes. Poor appetite Crackles heard in RML and RLL, all other burgos clear. Pt coughing frequently - tessalon perles ordered and given. Pt maximum temperature so far was 103.5 PO. Ice packs applied to forehead, groin and axillas. Maxine Pabon RN - 04/12/2016 8:00 PM CDT PRIMARY DIAGNOSIS: Pneumonia OUTPATIENT/OBSERVATION GOALS TO BE MET BEFORE DISCHARGE: 1. Vital signs stable? No-intermittent fevers. tmax 100.6, ibrufopen given 2. Labs stable? YES, awaiting results of urine test 3. Oxygen saturations at baseline or >/= 92% or at previous home O2 therapy level? No, O2 sats <90 when sleeping; applied 1L NC to maintain sats >90%. Pt weaned off, O2 during evening shift, pt reapplied for comfort while sleeping 4. Short term supplemental O2 needed for use with activity at home? Not applicable 5. Improvement in clinical condition? No, Pt still having fevers, and needing O2. 6. At or near baseline ADLs? No, SOB on exertion 7. Tolerating adequate PO diet and medications? Yes. Poor appetite Pt starting to feel better Tmax 100.7, improved from yesterday. Pt showered, Legionella pneumophilla resulted negative, HIV antigen negative. Maxine Pabon RN - 04/12/2016 4:00 PM CDT PRIMARY DIAGNOSIS: Pneumonia OUTPATIENT/OBSERVATION GOALS TO BE MET BEFORE DISCHARGE: 1. Vital signs stable? No-intermittent fevers. tmax 100.6, ibrufopen given 2. Labs stable? YES, awaiting results of urine test 3. Oxygen saturations at baseline or >/= 92% or at previous home O2 therapy level? No, O2 sats <90 when sleeping; applied 1L NC to maintain sats >90% 4. Short term supplemental O2 needed for use with activity at home? Not applicable 5. Improvement in clinical condition? No, Pt still having fevers, and needing O2. 6. At or near baseline ADLs? No, SOB on exertion 7. Tolerating adequate PO diet and medications? Yes. Poor appetite Jesusita Velasco RN - 04/12/2016 12:09 PM CDT PRIMARY DIAGNOSIS: Pneumonia OUTPATIENT/OBSERVATION GOALS TO BE MET BEFORE DISCHARGE: 1. Vital signs stable? No-intermittent fevers 2. Labs stable? YES 3. Oxygen saturations at baseline or >/= 92% or at previous home O2 therapy level? No, O2 sats <90 when sleeping; applied 1L NC to maintain sats >90% 4. Short term supplemental O2 needed for use with activity at home? Not applicable 5. Improvement in clinical condition? No 6. At or near baseline ADLs? No, SOB on exertion 7. Tolerating adequate PO diet and medications? Yes Jesusita Velasco RN - 04/12/2016 8:30 AM CDT PRIMARY DIAGNOSIS: Pneumonia OUTPATIENT/OBSERVATION GOALS TO BE MET BEFORE DISCHARGE: 1. Vital signs stable? No-intermittent fevers 2. Labs stable? YES 3. Oxygen saturations at baseline or >/= 92% or at previous home O2 therapy level? Yes 4. Short term supplemental O2 needed for use with activity at home? Not applicable 5. Improvement in clinical condition? No 6. At or near baseline ADLs? No, SOB on exertion 7. Tolerating adequate PO diet and medications? Yes Patient c/o headache, chills, intermittent fevers. Patient up independent in room, does get SOB on exertion. Productive cough. T Carolyn Pradhan RN - 04/12/2016 4:00 AM CDT PRIMARY DIAGNOSIS: PULMONARY OUTPATIENT/OBSERVATION GOALS TO BE MET BEFORE DISCHARGE: 1. Vital signs stable? No- Temp spiked to 104.5- Now 99.6 2. Labs stable? YES 3. Oxygen saturations at baseline or >/= 92% or at previous home O2 therapy level? No 4. Short term supplemental O2 needed for use with activity at home? Not applicable 5. Improvement in clinical condition? No- Spiked temp, RLL diminished 6. At or near baseline ADLs? No- SBA for increased safety when oob 7. Tolerating adequate PO diet and medications? No- Pt had an episode of N/V A&O x4. Temp now 99.6, came down from 104.5, rest of VSS. SBA when oob for increased safety. Pt and his mother expresses concerns for not knowing why he continues to spike a temp. Even after interventions. RLL diminished. Pt has an infrequent cough with small amounts of sputum that he swallows, sputum cx sent. O2sats decreased to 89%, 2L O2 via nc applied. Pt educated on use/frequency of IS- return demonstration adequate. Encouraged use of IS and to TCDB. Tylenol and ice given for increased temp. Will continue to monitor. Nurse to notify provider when observation goals have been met and patient is ready for discharge. Carolyn Alicea RN - 04/12/2016 2:00 AM CDT Temp decreased to 101.9 with Ibuprofen. Sepsis protocol flagged when temp entered. LA ordered, otherVSS. Will continue to monitor. T Carolyn Pradhan RN - 04/12/2016 1:00 AM CDT Temp 104.3 after Tylenol given. Will try Ibuprofen 600 mg. notified of temp not decreasing with interventions. Family and pt upset that symptoms have not been improving with interventions. Pt very anxious about situation. MD asked to come speak with family. Will continue to monitor. Carolyn Alicea RN - 04/12/2016 12:00 AM CDT Pt spiked 104.5 temp. notified. New order for Tylenol 1000 mg Q8H PRN. Instructed to try Tylenol and then Ibuprofen. Tylenol 1000 mg given, ice packs applied to pt., encouraged use of IS and to TCDB. Will continue to monitor. Carolyn Alicea RN - 04/12/2016 12:00 AM CDT PRIMARY DIAGNOSIS: PULMONARY OUTPATIENT/OBSERVATION GOALS TO BE MET BEFORE DISCHARGE: 1. Vital signs stable? No- Temp spiked to 104.5 2. Labs stable? YES 3. Oxygen saturations at baseline or >/= 92% or at previous home O2 therapy level? No 4. Short term supplemental O2 needed for use with activity at home? Not applicable 5. Improvement in clinical condition? No- Spiked temp, RLL diminished 6. At or near baseline ADLs? No- SBA for increased safety when oob 7. Tolerating adequate PO diet and medications? No- Pt had an episode of N/V A&O x4. Temp 104.5, rest of VSS. SBA when oob for increased safety. Pt and his mother expresses concerns for not knowing why he continues to spike a temp. Even after interventions. RLL diminished. Pt has an infrequent cough with small amounts of sputum that he swallows, sputum cx sent. O2sats decreased to 89%, 2L O2 via nc applied. Pt educated on use/frequency of IS- return demonstration adequate. Encouraged use of IS and to TCDB. Tylenol and ice given for increased temp. Will continue to monitor. Nurse to notify provider when observation goals have been met and patient is ready for discharge. Jigna Freire RN - 04/11/2016 8:21 PM CDT Pt complains of pain 06/09 (headache) but states this is tolerable and he does not want any medication at this time. Call light within reach. Kong Foote MD - 04/11/2016 5:09 PM CDT History Chief Complaint: Fever, Headache, Abdominal Pain HPI Seamus Barnes is an otherwise healthy 21 year old male who presents with ongoing fever. He was seen in the ED twice yesterday with a couple days of fevers, headaches, and some vomiting, with thorough evaluation providing no significant positive findings. He had a negative CT Head, negative CXR, LP with normal CSF labs, normal WBC and electrolytes, negative strep, and negative blood cultures. He was discharged with Reglan, Benadryl, and Zofran, and was to follow up with his PCP. He was also seenat Urgent Care this morning, with (per their notes) chief complaint of ear pain, and appears to havebeen started on Cefdinir. WBC was normal again today at Urgent Care. He returns to the ED this afternoon due to ongoing symptoms (fever; headache; very mild, infrequent,dry cough; nausea) despite the discharge medications. He has had unrelenting headaches and ongoing fevers (highest was 104.8 today; 103 on arrival). He also noted some aching pain in his right abdomen today and was concerned about that, but he states this is mild currently, and he has no pain with walking. There have otherwise been no new symptoms. He has not had a bowel movement in a day or so buthad normal stools prior. YESTERDAY'S (04/10/16) [facility] ED LABS/IMAGING (across 2 visits): CT head: Normal CT scan of the head, per radiology. Chest XR, PA & LAT: Negative chest. Lungs clear. ??Report per radiology. CBC: PLT 148(L) o/w WNL. (WBC 8.5, HGB 14.7) ?? CMP: Glucose 108(H), ALT 97(H) o/w AWNL (Creatinine 1.18) CSF labs: ?? Cell count with differential: WBC 2, RBC 0, Tube 4, clear and colorless Glucose: 70 Protein: 21 Culture: NEGATIVE as of 10 pm yesterday Gram stain: No WBC'S seen. No organisms seen. Blood culture: NEGATIVE after 1 day CK total: 262 Rapid strep screen: NEGATIVE Beta strep group A culture: NEGATIVE after 24 hrs Allergies: Minocycline Medications: Cefdinir Zofran Reglan Benadryl Past Medical History: History reviewed. No pertinent past medical history. Past Surgical History: History reviewed. No pertinent past surgical history. Family History: No past pertinent family history. Social History: Negative for tobacco use. Mother at bedside. Marital Status: Single [1] Review of Systems Constitutional: Positive for fever. HENT: Negative for sore throat. Respiratory: Positive for cough. Negative for shortness of breath. Cardiovascular: Negative for chest pain. Gastrointestinal: Positive for nausea, vomiting and abdominal pain. Negative for diarrhea and constipation. Genitourinary: Negative for dysuria and frequency. Musculoskeletal: Negative for neck stiffness. Neurological: Positive for headaches. All other systems reviewed and are negative. Physical Exam First Vitals: BP: (!) 152/91 mmHg ---> 127/54 Heart Rate: 121 ---> 82 Temp: 103.1 ??F (39.5 ??C) ---> 98.8 F Resp: 20 SpO2: 97 % Physical Exam Nursing note and vitals reviewed Filed Vitals: 04/11/16 1750 04/11/16 1910 04/11/[id number]/11/[id number] BP: 137/70 127/54 121/54 147/79 Temp: TempSrc: Resp: SpO2: 92% 95% 92% 93% Constitutional: Oriented to person, place, and time. Well-developed and well- nourished. No distress. HENT: Head: Normocephalic, atraumatic. Mouth/Throat: Clear and moist. No exudate. Eyes: Conjunctivae and EOM are normal. PERRL B. No discharge or icterus. Neck: FROM intact, supple. No JVD. No tracheal deviation. No thyromegaly visible. Cardiovascular: Tachycardia . No murmur. Pulmonary/Chest: Effort normal CTA B. No stridor or respiratory distress. No wheezes or rales. No tenderness to palpation. Abdominal: Soft. Bowel sounds are normal. No distension, tenderness, no guarding. Musculoskeletal: FROM. No edema or tenderness. Lymphadenopathy: No cervical adenopathy. Neurological: AOX3. No cranial nerve deficit. Normal muscle tone and coordinationl. Skin: Warm, dry, no rash or erythema, not diaphoretic. Psychiatric: Normal mood and affect. Patient's behavior is normal. Thought content normal. Emergency Department Course Imaging: Radiographic findings were communicated with the patient and family who voiced understanding of the findings. CT Abdomen/Pelvis with IV contrast: 1. Extensive right lower lobe infiltrate compatible with pneumonia. 2. Hydronephrosis on the right without ureteral stones. Clinical correlation needed to exclude right-sided pyelonephritis. Impression per radiology. Laboratory: UA with micro: Ketones 10, pH 7.5, Albumin 10, o/w WNL iStat VBG and lactate: pH 7.44, pCO2 38, pO2 26, Bicarb 26, O2 sat 51, lactate 1.2 CMP: Glucose 122 (high), Na 131 (low), BUN 6 (low), ALT 71 (high), o/w WNL (Creat 1.06) CBC: WBC 9.3, HGB 14.0, PLT 145 (low) Mononucleosis screen: Negative Lactic acid: 1.3 (wnl) Interventions: NS 1 L IV Rocephin 1 g IV Tylenol 975 mg PO Zithromax 500 mg PO Benadryl 25 mg IV Toradol 30 mg IV Reglan 10 mg IV Emergency Department Course: Nursing notes and vitals reviewed. I performed an exam of the patient as documented above. The patient was placed on continuous cardiac monitoring and pulse oximetry. IV inserted and blood drawn. This was sent for laboratory testing, results above. Urine sample was obtained and sent for testing, results above. Imaging obtained, radiology read(s) above. Findings and plan explained to the Patient and Mother who consents to admission. Discussed the patient with JUN Barnes, who will admit the patient to an observation bed for further monitoring, evaluation, and treatment. Impression & Plan Medical Decision Making: Seamus Barnes is a 21 year old male who presents for evaluation of ongoing fevers. History, physical exam and imaging studies are consistent with pneumonia. First dose of antibiotics given in ED within 2 hours of diagnosis. There are no signs of complications of pneumonia at this point such as septic shock, bacteremia, empyema, , respiratory failure or compromise, but he does have mild hypoxia here. This seems to be community acquired pneumonia and there are no risk factors at this point for coverage of antibiotic-resistant strains. I doubt PE, dissection, acute coronary syndrome, or other worrisome etiology for patients symptoms. Would not cover for aspiration or antibiotic resistant strainsof pneumonia at this point. Given mild hypoxia and severity of symptoms, admit to medicine for further cares. Diagnosis: ICD-10-CM 1. Pneumonia of right lower lobe due to infectious organism J18.9 2. Sepsis, due to unspecified organism (H) A41.9 I, Gorge Hernandez, am serving as a scribe on 04/11/2016 at 17:09 to personally document services performed by Kong Foote MD, based on my observations and the provider's statements to me. [facility] EMERGENCY DEPARTMENT Kong Foote MD 04/13/16 0009 Myah Curtis RN - 04/11/2016 4:35 PM CDT Pt has had fever for past 2 days and was seen in ED 3 times and also in urgent care. documented in this encounter Miscellaneous Notes Pharmacy-Admission Medication History - Yamil Johnson [facility] - 04/11/2016 8:16 PM CDT Admission medication history interview status for this patient is complete. See [facility] admission navigator for allergy information, prior to admission medications and immunization status. Medication history interview source(s):Patient and Family Medication history resources (including written lists, pill bottles, clinic record):None Primary pharmacy: [facility] in [place], [place] Changes made to [employer] medication list: Added: none Deleted: none Changed: none Actions taken by pharmacist (provider contacted, etc):None Additional medication history information:None Medication reconciliation/reorder completed by provider prior to medication history? No Prior to Admission medications Medication Sig Last Dose Taking? Auth Provider cefdinir (OMNICEF) 300 MG capsule Take 1 capsule (300 mg) by mouth 2 times daily 04/11/2016 at PM (1st dose) Yes Adarsh Craft MD ondansetron (ZOFRAN ODT) 4 MG disintegrating tablet Take 1 tablet (4 mg) by mouth every 8 hours as needed for nausea 04/11/2016 at 0845 Yes Evelio Johnson MD diphenhydrAMINE (BENADRYL) 25 MG tablet Take 1 tablet (25 mg) by mouth every 6 hours as needed (withReglan for headache) 04/11/2016 at 1115 Yes Vonnie Cuadra PA-C metoclopramide (REGLAN) 5 MG tablet Take 1 tablet (5 mg) by mouth 4 times daily as needed For headache 04/11/2016 at 1115 Yes Vonnie Cuadra PA-C documented in this encounter Plan of Treatment Upcoming Encounters Date Type Specialty Care Team Description 11/04/2022 Office Visit Internal Medicine Marcy Ricketts APRN LICENSED DIRECT ENTRY MIDWIFE [address] [place], [place] [address] (Wo rk) documented as of this encounter Procedures Procedure Name Priority Date/Time Associated Comments Diagnosis CBC WITH PLATELETS & Routine 04/14/2016 6:00 AM Pneumonia of r ight Results for this DIFFERENTIAL CDT lower lobe due to procedure are in infectious organism the resu lts (H) section. BASIC METABOLIC PANEL Routine 04/14/2016 6:00 AM Pneumonia of right Results for this CDT lower lobe due to procedure are in infectious organism the resu lts (H) section. SPUTUM CULTURE AEROBIC Routine 04/13/2016 11:50 Pneumonia of r ight Results for this BACTERIAL PM CDT lower lobe due to procedure are in infectious organism the resu lts (H) section. GRAM STAIN STAT 04/13/2016 11:50 Pneumonia of right Resul ts for this PM CDT lower lobe due to procedure are in infectious organism the resu lts (H) section. FUNGUS CULTURE Routine 04/13/2016 11:50 Pneumonia of right Res ults for this PM CDT lower lobe due to procedure are in infectious organism the resu lts (H) section. SPUTUM CULTURE AEROBIC Routine 04/13/2016 4:30 PM Pneumonia of right Results for this BACTERIAL CDT lower lobe due to procedure are in infectious organism the resu lts (H) section. GRAM STAIN Routine 04/13/2016 4:30 PM Pneumonia of right Res ults for this CDT lower lobe due to procedure are in infectious organism the resu lts (H) section. FUNGUS CULTURE Routine 04/13/2016 4:30 PM Pneumonia of right R esults for this CDT lower lobe due to procedure are in infectious organism the resu lts (H) section. FUNGAL ANTIBODIES STAT 04/13/2016 11:10 Pneumonia of right Results for this AM CDT lower lobe due to procedure are in infectious organism the resu lts (H) section. COCCIDIOIDES ANTIBODY STAT 04/13/2016 11:10 Pneumonia of ri ght Results for this AM CDT lower lobe due to procedure are in infectious organism the resu lts (H) section. BLASTOMYCES ANTIBODY STAT 04/13/2016 11:10 Pneumonia of rig ht Results for this ID AM CDT lower lobe due to procedure are in infectious organism the resu lts (H) section. ASPERGILLUS ANTIBODY STAT 04/13/2016 11:10 Pneumonia of rig ht Results for this AM CDT lower lobe due to procedure are in infectious organism the resu lts (H) section. INFLUENZA A AND B & STAT 04/13/2016 9:34 AM Pneumonia of ri ght Results for this RSV BY PCR CDT lower lobe due to procedure are in infectious organism the resu lts (H) section. XR CHEST 2 VIEWS STAT 04/13/2016 9:30 AM Resul ts for this CDT procedure are i n the results section. CBC WITH PLATELETS & Routine 04/13/2016 6:20 AM Pneumonia of r ight Results for this DIFFERENTIAL CDT lower lobe due to procedure are in infectious organism the resu lts (H) section. HEPATIC FUNCTION PANEL Routine 04/13/2016 6:20 AM Pneumonia of right Results for this CDT lower lobe due to procedure are in infectious organism the resu lts (H) section. LEGIONELLA PNEUMOPHILA Routine 04/12/2016 10:30 Pneumonia of r ight Results for this URINARY ANTIGEN AM CDT lower lobe due to procedu re are in infectious organism the resu lts (H) section. BLOOD CULTURE STAT 04/12/2016 8:10 AM Pneumonia of right Re sults for this CDT lower lobe due to procedure are in infectious organism the resu lts (H) section. HIV ANTIGEN ANTIBODY Routine 04/12/2016 8:07 AM Pneumonia of r ight Results for this COMBO CDT lower lobe due to procedure are in infectious organism the resu lts (H) section. BLOOD CULTURE STAT 04/12/2016 8:07 AM Pneumonia of right Re sults for this CDT lower lobe due to procedure are in infectious organism the resu lts (H) section. CBC WITH PLATELETS & Routine 04/12/2016 6:30 AM Pneumonia of r ight Results for this DIFFERENTIAL CDT lower lobe due to procedure are in infectious organism the resu lts (H) section. BASIC METABOLIC PANEL Routine 04/12/2016 6:30 AM Pneumonia of right Results for this CDT lower lobe due to procedure are in infectious organism the resu lts (H) section. LACTIC ACID STAT 04/12/2016 2:49 AM Pneumonia of right Res ults for this CDT lower lobe due to procedure are in infectious organism the resu lts (H) section. SPUTUM CULTURE AEROBIC STAT 04/11/2016 11:10 Pneumonia of r ight Results for this BACTERIAL PM CDT lower lobe due to procedure are in infectious organism the resu lts (H) section. GRAM STAIN STAT 04/11/2016 11:10 Pneumonia of right Resul ts for this PM CDT lower lobe due to procedure are in infectious organism the resu lts (H) section. CT ABDOMEN PELVIS W/O STAT 04/11/2016 6:47 PM Results for this CONTRAST CDT procedure are i n the results section. ROUTINE UA WITH STAT 04/11/2016 5:45 PM Result s for this MICROSCOPIC CDT procedure are i n the results section. ISTAT GASES LACTATE Routine 04/11/2016 5:38 PM Re sults for this VENOUS POCT CDT procedure are i n the results section. CBC WITH PLATELETS & STAT 04/11/2016 5:32 PM R esults for this DIFFERENTIAL CDT procedure are i n the results section. MONONUCLEOSIS SCREEN STAT 04/11/2016 5:32 PM R esults for this CDT procedure are i n the results section. LACTIC ACID WHOLE STAT 04/11/2016 5:32 PM Resu lts for this BLOOD CDT procedure are i n the results section. COMPREHENSIVE STAT 04/11/2016 5:32 PM Results for this METABOLIC PANEL CDT procedure ar e in the results section. documented in this encounter Results (ABNORMAL) Basic metabolic panel (04/14/2016 6:00 AM CDT) [facility] Method Time Signature Sodium 140 133 - 144 [place] mmol/L [facility] Potassium 3.3 (L) 3.4 - 5.3 [place] mmol/L [facility] Chloride 107 94 - 109 [place] mmol/L [facility] Carbon Dioxide 27 20 - 32 [place] mmol/L [facility] Anion Gap 6 3 - 14 [place] mmol/L [facility] Glucose 97 70 - 99 [place] mg/dL [facility] Urea Nitrogen 6 (L) 7 - 30 [place] mg/dL [facility] Creatinine 0.84 0.66 - [place] 1.25 [facility] mg/dL [facility] GFR Estimate >90 >60 [place] Non GFR Calc mL/min/1. [facility] 7m2 [facility] GFR Estimate >90 >60 [place] If Black GFR Calc mL/min/1. [facility] 7m2 [facility] Calcium 8.6 8.5 - [place] 10.1 [facility] mg/dL HOSPITAL Specimen Anatomical Collection Method Collection Time Receive d Time (Source) Location / / Volume Laterality Blood specimen 04/14/2016 6:00 AM 016 6:24 (specimen) CDT AM CDT Andrew Esposito MD LAB - BLOOD ORDERABLES Performing Organization Address City/State/ZIP Code Phon e Number [place] [address] [place], [place] [address] [facility] [address] [phone] (ABNORMAL) CBC with platelets differential (04/14/2016 6:00 AM CDT) [facility] Method Time Signature WBC 6.8 4.0 - [place] 11.[address] RBC Count 4.00 (L) 4.4 - 5.9 [place] 10e12/L [facility] Hemoglobin 13.1 (L) 13.3 - [place] 17.7 g/dL [facility] Hematocrit 37.3 (L) 40.0 - [place] 53.0 % [facility] MCV 93 78 - 100 [place] fl [facility] MCH 32.8 26.5 - [place] 33.0 pg [facility] MCHC 35.1 31.5 - [place] 36.5 g/dL [facility] RDW 12.9 10.0 - [place] 15.0 % [facility] Platelet Count 195 150 - [address] Diff Method Automated [place] Method [facility] % Neutrophils 56.1 % [facility] % Lymphocytes 26.9 % [facility] % Monocytes 11.7 % [facility] % Eosinophils 2.8 % [facility] % Basophils 0.4 % [facility] % Immature 2.1 % [place] Granulocytes [facility] Nucleated RBCs 0 0 /100 [facility] Absolute 3.8 1.6 - 8.3 [place] Neutrophil [address] [place] [address] Absolute 1.8 0.8 - 5.3 [place] Lymphocytes [address] [place] [address] Absolute 0.8 0.0 - 1.3 [place] Monocytes [address] [place] [address] Absolute 0.2 0.0 - 0.7 [place] Eosinophils [address] [place] [address] Absolute 0.0 0.0 - 0.2 [place] Basophils [address] [place] [address] Abs Immature 0.1 0 - 0.4 [place] Granulocytes [address] [place] [address] Absolute 0.0 [place] Nucleated RBC [facility] Specimen Anatomical Collection Method Collection Time Receive d Time (Source) Location / / Volume Laterality Blood specimen 04/14/2016 6:00 AM 016 6:24 (specimen) CDT AM CDT Andrew Esposito MD LAB - BLOOD ORDERABLES Performing Organization Address City/State/ZIP Code Phon e Number [facility] [address] [address] [facility] [address] [phone], [facility] [phone] Fungus culture (04/13/2016 11:50 PM CDT) [facility] Method Time Signature Specimen Sputum [facility] Culture Micro Culture [facility] 4 [facility] Micro Report [facility] Status 05/12/2016 [facility] Specimen Anatomical Collection Method Collection Time Receive d Time (Source) Location / / Volume Laterality Sputum specimen 04/13/2016 11:50 04/14/20 16 (specimen) PM CDT 12:01 AM CDT Andrew Esposito MD LAB - MICRO GENERAL ORDERABL ES Performing Organization Address City/[facility]/ZIP Code Phon e Number [address] [place], [place] [address], [facility] [phone] Gram stain (04/13/2016 11:50 PM CDT) [facility] Method Time Signature Specimen Sputum [facility] Special Screen [facility] Gram Stain <10 Squamous epithelial cells/low power field MICRO RAPID >25 PMNs/low power field TESTI NG LAB Mixed gram positive and gram negative bacteria present. Micro Report FINAL MICRO RAPID Status 04/14/2016 TESTING LAB Specimen Anatomical Collection Method Collection Time Receive d Time (Source) Location / / Volume Laterality Sputum specimen 04/13/2016 11:50 04/14/20 16 (specimen) PM CDT 12:01 AM CDT Andrew Esposito MD LAB - MICRO GENERAL ORDERABL ES Performing Organization Address City/[facility]/ZIP Code Phon e Number MICRO RAPID TESTING LAB [address] [place], [place] [phone] [place] [address] [address] [place], [place] [address], [place] [phone] Sputum Culture Aerobic Bacterial (04/13/2016 11:50 PM CDT) [facility] Method Time Signature Specimen Sputum [facility] Culture Micro Normal INFECTIOUS mitali DISEASE DIAGNOSTIC LABORATORY Micro Report FINAL INFECTIOUS Status 04/16/2016 DISEASE [facility]AGNOSTIC LABORATORY Specimen Anatomical Collection Method Collection Time Receive d Time (Source) Location / / Volume Laterality Sputum specimen 04/13/2016 11:50 04/14/20 16 (specimen) PM CDT 12:01 AM CDT Andrew Esposito MD LAB - MICRO GENERAL ORDERABL ES Performing Organization Address City/[facility] Phon e Number INFECTIOUS DISEASES [address] [place] [address] DIAGNOSTIC LABORATORY, [facility] [address] [phone] INFECTIOUS DISEASE [address] DIAGNOSTIC LABORATORY (ABNORMAL) Gram stain (04/13/2016 4:30 PM CDT) [facility] Signature Specimen Sputum [facility] Special Screen [facility] Gram Stain >10 Squamous epithelial cell s/low power field indicates oral contamination. MICRO RAPID Please recollect. TESTING LAB <25 PMNs/low power field Mixed gram positive and gram negative bacteria present. (A) Micro Report FINAL MICRO RAPID Status 04/13/2016 TESTING LAB Specimen Anatomical Collection Method Collection Time Receive d Time (Source) Location / / Volume Laterality Sputum specimen 04/13/2016 4:30 PM 2015 4:53 (specimen) CDT PM CDT Andrew Esposito MD LAB - MICRO GENERAL ORDERABL ES Performing Organization Address City/[facility] Phon e Number MICRO RAPID TESTING LAB [address] (ABNORMAL) Sputum Culture Aerobic Bacterial (04/13/2016 4:30 PM CDT) Component Value Ref Test Analysis Performed At [facility] Method Time Signature Specimen Sputum [facility] Culture Micro Canceled, Test credited >10 Squamous epithelial cells/low power field indicates MICRO RAPID oral contamination. Please recollect. TESTING LAB Notification of test cancellation was given to Dye (RHOBS) at 2145 on [id number].KD (A) Micro Report FINAL 04/13/2016 MICRO RAPI D Status TESTING LAB Specimen Anatomical Collection Method Collection Time Receive d Time (Source) Location / / Volume Laterality Sputum specimen 04/13/2016 4:30 PM 2015 4:53 (specimen) CDT PM CDT Andrew Esposito MD LAB - MICRO GENERAL ORDERABL ES Performing Organization Address [facility] Phon e Number MICRO RAPID TESTING LAB [address] [place] [phone] 7, [facility] [phone] (ABNORMAL) Fungus culture (04/13/2016 4:30 PM CDT) Component Value Ref Test Analysis Performed At [facility] Method Time Signature Specimen Sputum [facility] Culture Micro Canceled, Test credited >10 Squamous epithelial cells/low power field indicates MICRO RAPID oral contamination. Please recollect. TESTING LAB Notification of test cancellation was given to Marnie JAMA) at 2145 on [id number].KD (A) Micro Report FINAL 04/13/2016 MICRO RAPI D Status TESTING LAB Specimen Anatomical Collection Method Collection Time Receive d Time (Source) Location / / Volume Laterality Sputum specimen 04/13/2016 4:30 PM 2015 4:53 (specimen) CDT PM CDT Andrew Esposito MD LAB - MICRO GENERAL ORDERABL ES Performing Organization Address [facility] e Number MICRO RAPID TESTING LAB [address] [address] [place] [address] [address], [facility] [phone] Fungal antibodies (04/13/2016 11:10 AM CDT) Component Value Ref Test Analysis Performed Pathologis t Range Method Time At Signature Blastomycosis Liv <1:8 [place] Reference range: <1:8 [facility] (Note) HOSPITAL INTERPRETIVE INFORMATION: Blastomyces Antibody by Complement Fixation(CF) Less than 40 percent of patients have positive tests when active disease is present. ??Frequent cross-reactions occur in patients with histoplasmosis or coccidioidomycosis. Paired sera may detect rise in titer to single antigen. Coccidiomycosis <1:2 [facility] Liv Reference range: <1:2 [place] (Note) HOSPITAL INTERPRETIVE INFORMATION: Coccidioides Ab by Complement Fixation (CF) Any titer suggests past or current infection. However, greater than 30% of cases with chronic residual pulmonary disease have negative CF tests. Titers of less than 1:32 (even as low as 1:2) may indicate past infection or self-limited disease; titers greater than or equal to 1:32 may indicate disseminated infection. CF serology may be used to follow therapy. Antibody in CSF is considered diagnostic for coccidioidal meningitis, although 10% of patients with coccidioidal meningitis will not have antibody in CSF. Histoplasmosis Myc <1:8 [facility] Reference range: <1:8 [facility] Histoplasmosis <1:8 [facility] Yeast Reference range: <1:8 [facility] (Note) HOSPITAL INTERPRETIVE INFORMATION: ??Histoplasma Antibodies by Complement Fixation (CF) An antibody titer greater than or equal to 1:8 is generally considered presumptive evidence of histoplasmosis. Greater than 1:32 or rising titers indicate strong presumptive evidence of histoplasmosis. The yeast phase is regarded as more sensitive. Approximate 90-95 percent of cases have positive titers to one or both antigens. Titers to mycelial antigen are higher in chronic infection. Cross reactions, usually at lower titers, may occur with other fungal disease. Rising titers suggest progression of infection. Skin tests in individuals previously exposed may cause titer elevation in 17-20 percent of cases. Aspergillus <1:8 [facility] Antibody Reference range: <1:8 [facility] (Note) HOSPITAL INTERPRETIVE INFORMATION: Aspergillus Antibody by Complement Fixation (CF) Cross-reactions with dimorphic fungi are not unusual within the genus Aspergillus. A negative test does not exclude infection, especially in immuno- compromised patients. Best use of test is with paired sera taken three weeks apart to detect a rise in titer against a single antigen. Performed by [facility], [address] [place] [id number] [email or web address], Jan Flores MD, Lab. Director Specimen Anatomical Collection Method Collection Time Receive d Time (Source) Location / / Volume Laterality Blood specimen 04/13/2016 11:10 6 (specimen) AM CDT 11:23 AM CDT Andrew Esposito MD LAB - BLOOD ORDERABLES Performing Organization Address City/State/ZIP Code Phon e Number [facility] [address] [place], [place] [address] [facility] [address] [place], [place] [address], [facility] [phone] Coccidioides antibody (04/13/2016 11:10 AM CDT) Component Value Ref Test Analysis Performed At [facility] Method Time Signature Coccidioides Liv <1:2 [place] Reference range: <1:2 [facility] (Note) HOSPITAL INTERPRETIVE INFORMATION: Coccidioides Ab by Complement Fixa tion (CF) Any titer suggests past or current infection. However, great er than 30% of cases with chronic residual pulmonary disease diaz ve negative CF tests. Titers of less than 1:32 (even as low as 1:2) may indicate past infection or self-limited disease; titers greater than or equal to 1:32 may indicate disseminated infection. CF serology may be used to follow therapy. Antibo dy in CSF is considered diagnostic for coccidioidal meningitis, although 10% of patients with coccidioidal meningitis will n ot have antibody in CSF. Performed by [facility], [address] [place] [id number] [email or web address], Jan Flores MD, Lab. Director Specimen Anatomical Collection Method Collection Time Receive d Time (Source) Location / / Volume Laterality Blood specimen 04/13/2016 11:10 6 (specimen) AM CDT 11:23 AM CDT Andrew Esposito MD LAB - BLOOD ORDERABLES Performing Organization Address City/State/ZIP Code Phon e Number [facility] [address] [place], [place] [address] [facility] [address] [place], [place] [address], [facility] [phone] Blastomyces antibody ID (04/13/2016 11:10 AM CDT) Component Value Ref Test Analysis Performed Pathologis t Range Method Time At Signature Blastomycosis None Detected [place] Liv Reference range: None Detected [facility] (Note) HOSPITAL INTERPRETIVE INFORMATION: Blastomyces dermatitidis Antibodies by ? Immunodiffusion A positive result may suggest active or recent infection. The test is positive in about 80 percent of cases. Cross reactions occur, especially with histoplasmosis. A negative test (none detected) does not exclude blastomycosis. Performed by [facility], [address] [place] [address] [email or web address], Jan Flores MD, Lab. Director Specimen Anatomical Collection Method Collection Time Receive d Time (Source) Location / / Volume Laterality Blood specimen 04/13/2016 11:10 6 (specimen) AM CDT 11:23 AM CDT Andrew Esposito MD LAB - BLOOD ORDERABLES Performing Organization Address City/[facility] Phon e Number [place] [address] [address] [place], [place] [address] [facility] [address] [place] [address] [phone] Aspergillus antibody (04/13/2016 11:10 AM CDT) Component Value Ref Test Analysis Performed Pathologis t Range Method Time At Signature Aspergillus None Detected [place] Liv ID Reference range: None Detected [facility] (Note) HOSPITAL INTERPRETIVE INFORMATION: Aspergillus spp. Antibodies by ? Immunodiffusion In general, immunodiffusion measures IgG and a positive result may suggest past infection. The test is positive in about 90 percent of sera from patients with aspergilloma and 50-70 percent of patients with allergic bronchopulmonary aspergillosis. A negative test (none detected) does not exclude aspergillosis. Performed by [facility], [address] [place] [address] [email or web address], Jan Flores MD, Lab. Director Specimen Anatomical Collection Method Collection Time Receive d Time (Source) Location / / Volume Laterality Blood specimen 04/13/2016 11:10 6 (specimen) AM CDT 11:23 AM CDT Andrew Esposito MD LAB - BLOOD ORDERABLES Performing Organization Address City/[facility]/ZIP Code Phon e Number [facility] [address] [place], [place] [address] [facility] [address] [place], [place] [address], [facility] [phone] Influenza A and B and RSV PCR (04/13/2016 9:34 AM CDT) Component Value Ref Test Analysis Performed At [facility] [employer] Range Method Time Signature Specimen Nasopharyngeal [facility] Influenza A Negative [facility] PCR Flu A target RNA not detect ed, presumed negative for Influenza A or the viral [place] [facility] load is below the limit of detection. [facility] Influenza B Negative [facility] OF PCR Flu B target RNA not detect ed, presumed negative for Influenza B or the viral [place] [facility] load is below the limit of detection. [facility] Resp Syncytial Negative [facility] OF Virus RSV target RNA not detected , presumed negative for Respiratory Syncitial Virus [place] [facility] or the viral load is below the limit of detection. [facility] FDA approved assay performed using [employer] (Proprietary) GeneXpert(R) r eal-time PCR. BANK Specimen Anatomical Location / Collection Method Collection Khoi e Received Time (Source) Laterality / Volume NASOPHARYNGEAL 04/13/2016 9:34 04/13/2016 STRUCTURE / Unknown AM CDT 10:00 AM CDT Andrew Esposito MD LAB - MICRO GENERAL ORDERABL ES Performing Organization Address City/State/ZIP Code Phon e Number [address] [address] [facility] [address] [place], [place] [address], [facility] [phone] (ABNORMAL) XR Chest 2 Views (04/13/2016 9:30 AM CDT) [facility] Method Time Signature Radiologist See report RADIOLOGY flags (Urgent) RESULTS Anatomical Region Laterality Modality Chest Computed Radiography Specimen (Source) Anatomical Location Collection Method / Collectio n Time Received Time / Laterality Volume Impressions 04/13/2016 2:50 PM CDT IMPRESSION: Markedly worse right lower lobe infiltrate since the comparison study. Probable right middle lobe involvement as well. [Urgent Result: See report] DYLAN EASON MD Narrative 04/13/2016 2:50 PM CDT CHEST TWO VIEWS ??04/13/2016 9:30 AM HISTORY: Pneumonia followup. COMPARISON: 04/10/2016. FINDINGS: Marked interval worsening in r ight base infiltrate since the comparison study. Left lung clear. The c ardiac silhouette is not enlarged. Pulmonary vasculature is unrem arkable. Procedure Note Dylan Eason MD - 04/13/2016Fo rmatting of this note might be different from the original. CHEST TWO VIEWS 04/13/2016 9:30 AM HISTORY: Pneumonia followup. COMPARISON: 04/10/2016. FINDINGS: Marked interval worsening in r ight base infiltrate since the comparison study. Left lung clear. The c ardiac silhouette is not enlarged. Pulmonary vasculature is unrem arkable. IMPRESSION: Markedly worse right lower l obe infiltrate since the comparison study. Probable right middle lobe involvement as well. [Urgent Result: See report] DYLAN EASON MD Andrew Esposito MD IMG DIAGNOSTIC IMAGING ORDER [place] (ABNORMAL) Hepatic panel (04/13/2016 6:20 AM CDT) Analysis Performed At Patho logist Time Signature Bilirubin Direct <0.1 0.0 - 0.2 [place] mg/dL [facility] Bilirubin Total 0.4 0.2 - 1.3 [place] mg/dL [facility] Albumin 2.8 (L) 3.4 - 5.0 [place] g/dL [facility] Protein Total 6.4 (L) 6.8 - 8.8 [place] g/dL [facility] [facility] Alkaline 105 40 - 150 [place] Phosphatase U/L [facility] ALT 56 0 - 70 U/L [facility] AST 29 0 - 45 U/L [facility] Specimen Anatomical Collection Method Collection Time Receive d Time (Source) Location / / Volume Laterality 04/13/2016 6:20 AM 6 6:56 CDT AM CDT Monik BARAHONA LAB - BLOOD ORDERABLES Performing Organization Address City/State/ZIP Code Phon e Number [facility] [address], [place] [address] [facility] [address] [place], [place] [address] 7[facility] [phone] (ABNORMAL) CBC with platelets differential (04/13/2016 6:20 AM CDT) Patholo gist Method Time Signature WBC 8.9 4.0 - [place] 11.0 [facility] RBC Count 3.87 (L) 4.4 - 5.9 [place] 10e12/L [facility] Hemoglobin 12.7 (L) 13.3 - [place] 17.7 g/dL [facility] Hematocrit 36.4 (L) 40.0 - [place] 53.0 % [facility] MCV 94 78 - 100 [place] fl [facility] MCH 32.8 26.5 - [place] 33.0 pg [facility] MCHC 34.9 31.5 - [place] 36.5 g/dL [facility] RDW 12.8 10.0 - [place] 15.0 % [facility] Platelet Count 165 150 - [address] Diff Method Automated [facility] % Neutrophils 68.2 % [facility] % Lymphocytes 19.5 % [facility] % Monocytes 10.8 % [facility] % Eosinophils 1.0 % [facility] % Basophils 0.1 % [facility] % Immature 0.4 % [place] Granulocytes [facility] Nucleated RBCs 0 0 /100 [facility] Absolute 6.1 1.6 - 8.3 [place] Neutrophil [address] [place] [address] Absolute 1.7 0.8 - 5.3 [place] Lymphocytes [address] [place] [address] Absolute 1.0 0.0 - 1.3 [place] Monocytes [address] [place] [address] Absolute 0.1 0.0 - 0.7 [place] Eosinophils [address] [place] [address] Absolute 0.0 0.0 - 0.2 [place] Basophils [address] [place] [address] Abs Immature 0.0 0 - 0.4 [place] Granulocytes [address] [place] [address] Absolute 0.0 [place] Nucleated RBC [facility] Specimen Anatomical Collection Method Collection Time Receive d Time (Source) Location / / Volume Laterality Blood specimen 04/13/2016 6:20 AM 016 6:56 (specimen) CDT AM CDT Monik BARAHONA LAB - BLOOD ORDERABLES Performing Organization Address City/State/ZIP Code Phon e Number [facility] [address], [place] [address] [facility] [address] [place], [place] [address] 7, [facility] [phone] Legionella pneumonia antigen urine (04/12/2016 10:30 AM CDT) Component Value Ref Test Analysis Performed At [facility] Range Method Time Signature Specimen Urine [facility] L Pneumo Urine Presumptive negative for Leg ionella pneumophilia serogroup 1 antigen in urine, MICRO RAPID Antigen suggesting no recent or cur rent infection. ??Infection due to Legionella cannot TESTING LAB be ruled out, since other s erogroups and species may cause disease, antigen may not be present in urine in early infection, and the level of antigen present in the urine may be below detectable limits of the test. Micro Report FINAL 04/12/2016 MICRO RAPI D Status TESTING LAB Specimen Anatomical Collection Method Collection Time Receive d Time (Source) Location / / Volume Laterality Urine specimen URINE SPECIMEN 04/12/2016 10:30 016 (specimen) OBTAINED BY CLEAN AM CDT 10:39 AM C DT CATCH PROCEDURE / Unknown Monik BARAHONA LAB - MICRO GENERAL ORDERABL ES Performing Organization Address City/[facility]/ZIP Code Phon e Number MICRO RAPID TESTING LAB [address] [place] [address] [facility] [address] [place], [place] [address] 7, [facility] [phone] Blood culture (04/12/2016 8:10 AM CDT) [facility] Method Time Signature Specimen Blood Left [facility] Hand [facility] Special Aerobic and [facility] anaerobic [facility] received BANK Culture Micro No growth INFECTIOUS DISEASE DIAGNOSTIC LABORATORY Micro Report FINAL INFECTIOUS Status 04/18/2016 DISEASE [facility] LAB[facility]ORY Specimen Anatomical Collection Method Collection Time Receive d Time (Source) Location / / Volume Laterality Blood specimen 04/12/2016 8:10 AM 016 8:16 (specimen) CDT AM CDT Monik BARAHONA LAB - MICRO GENERAL ORDERABL ES Performing Organization Address City/State/ZIP Code Phon e Number INFECTIOUS DISEASES [address] [place] [address] DIAGNOSTIC LABORATORY, [address] [address], [facility] INFECTIOUS DISEASE [address] [place] [address] DIAGNOSTIC LABORATORY HIV Antigen Antibody Combo (04/12/2016 8:07 AM CDT) [facility] Method Time Signature HIV Antigen Nonreactive NR [facility] OF Antibody HIV-1 p24 Ag & HIV-1/HIV-2 Ab Not Detected [facility] Specimen Anatomical Collection Method Collection Time Receive d Time (Source) Location / / Volume Laterality 04/12/2016 8:07 AM 201 6 8:18 CDT AM CDT Andrew Esposito MD LAB - BLOOD ORDERABLES Performing Organization Address City/[facility]/ZIP Code Phon e Number [facility] [address] Blood culture (04/12/2016 8:07 AM CDT) [facility] Method Time Signature Specimen Blood Left [facility] Arm [facility] Special Aerobic and [facility] OF Requests anaerobic [facility] EAST received BANK Culture Micro No growth INFECTIOUS DISEASE DIAGNOSTIC LABORATORY Micro Report FINAL INFECTIOUS Status 04/18/2016 DISEASE DIAGNOSTIC LABORATORY Specimen Anatomical Collection Method Collection Time Receive d Time (Source) Location / / Volume Laterality Blood specimen 04/12/2016 8:07 AM 016 8:17 (specimen) CDT AM CDT Monik BARAHONA LAB - MICRO GENERAL ORDERABL ES Performing Organization Address City/[facility] Phon e Number INFECTIOUS DISEASES [address] [place] [address] DIAGNOSTIC LABORATORY, [address] [facility] INFECTIOUS DISEASE [address] DIAGNOSTIC LABORATORY (ABNORMAL) Basic metabolic panel (04/12/2016 6:30 AM CDT) [facility] Method Time Signature Sodium 136 133 - 144 [place] mmol/L [facility] Potassium 4.0 3.4 - 5.3 [place] mmol/L [facility] Chloride 103 94 - 109 [place] mmol/L [facility] Carbon Dioxide 28 20 - 32 [facility] mmol/L [facility] Anion Gap 5 3 - 14 [facility] mmol/L [facility] Glucose 117 (H) 70 - 99 [place] mg/dL [facility] Urea Nitrogen 7 7 - 30 [facility] mg/dL [facility] Creatinine 1.00 0.66 - [place] 1.25 [facility] mg/dL HOSPITAL GFR Estimate >90 >60 [place] Non GFR Calc mL/min/1. [facility] 7m2 [facility] GFR Estimate >90 >60 [place] If Black GFR Calc mL/min/1. [facility] ES 7m2 [facility]OSPITAL Calcium 8.9 8.5 - [place] 10.1 [facility] mg/dL [facility]OSPITAL Specimen Anatomical Collection Method Collection Time Receive d Time (Source) Location / / Volume Laterality Blood specimen 04/12/2016 6:30 AM 016 6:45 (specimen) CDT AM CDT Kandace Barnes PA-C LAB - BLOOD ORDERABLES Performing Organization Address City/State/ZIP Code Phon e Number [facility] [address] [place] [place] [address] HOSPITAL [facility] [address] [phone] (ABNORMAL) CBC with platelets differential (04/12/2016 6:30 AM CDT) Component Value Ref Test Analysis Performed At [facility] gist Range Method Time Signature WBC 9.8 4.0 - [place] 11.0 [facility] 10e9/L [facility] RBC Count 4.20 (L) 4.4 - [place] 5.9 [facility] 10e12/L [facility] Hemoglobin 13.9 13.3 - [place] 17.7 [facility] g/dL [facility] Hematocrit 39.8 (L) 40.0 - [place] 53.0 % [facility] MCV 95 78 - 100 [facility] MCH 33.1 (H) 26.5 - [place] 33.0 pg [facility] MCHC 34.9 31.5 - [place] 36.5 [facility] g/dL [facility] RDW 12.7 10.0 - [place] 15.0 % [facility] Platelet Count 145 (L) 150 - [place] 450 [facility] 10e9/L [facility] Diff Method Manual [place] Differential [facility] % Neutrophils 86.0 % [facility] % Lymphocytes 10.0 % [facility] % Monocytes 4.0 % [facility] % Eosinophils 0.0 % [facility] % Basophils 0.0 % [facility] Absolute 8.4 (H) 1.6 - [place] Neutrophil 8.3 [facility] 10e9/L [facility] Absolute 1.0 0.8 - [place] Lymphocytes 5.3 [facility] Absolute 0.4 0.0 - [place] Monocytes 1.3 [facility] 10[facility] Absolute 0.0 0.0 - [place] Eosinophils 0.7 [facility] 10e9L [facility] Absolute 0.0 0.0 - [place] Basophils [address] RBC Morphology Normal [facility] Platelet Normal [facility] Specimen Anatomical Collection Method Collection Time Receive d Time (Source) Location / / Volume Laterality Blood specimen 04/12/2016 6:30 AM 016 6:45 (specimen) CDT AM CDT Kandace Barnes PA-C LAB - BLOOD ORDERABLES Performing Organization Address City/[facility]/ZIP [facility] Phon e Number [facility] [address], [place] [address] [facility] [address] [place], [place] [address], [facility] [phone] Lactic acid (04/12/2016 2:49 AM CDT) P athologist Signature Lactic Acid 0.7 0.4 - 2.0 [place] mmolARH [facility] Specimen Anatomical Collection Method Collection Time Receive d Time (Source) Location / / Volume Laterality Blood specimen 04/12/2016 2:49 AM 016 2:55 (specimen) CDT AM CDT Kandace Barnes PA-C LAB - BLOOD ORDERABLES Performing Organization Address City/State/ZIP Code Phon e Number [facility] [address], [place] [address] [facility] [address] [place], [place] [address], [facility] [phone] Gram stain (04/11/2016 11:10 PM CDT) Patholo gist Method Time Signature Specimen Sputum [facility] Special Screen [facility] Gram Stain <10 Squamous epithelial cells/low power field MICRO RAPID <25 PMNs/low power field TESTI NG LAB Mixed gram positive and gram negative bacteria present. Micro Report FINAL MICRO RAPID Status 04/12/2016 TESTING LAB Specimen Anatomical Collection Method Collection Time Receive d Time (Source) Location / / Volume Laterality Sputum specimen 04/11/2016 11:10 04/11/20 16 (specimen) PM CDT 11:14 PM CDT Kandace Barnes PA-C LAB - MICRO GENERAL ORDERA BLEChristiano Performing Organization Address City/[facility]/ZIP Code Phon e Number MICRO RAPID TESTING LAB [address] [place] [address] [facility] [address] [place], [place] [address], [facility] [phone] Sputum Culture Aerobic Bacterial (04/11/2016 11:10 PM CDT) [facility] Method Time Signature Specimen Sputum [facility] Culture Micro Normal [facility] Micro Report FINAL [facility] Status 04/14/2016 [facility] Specimen Anatomical Collection Method Collection Time Receive d Time (Source) Location / / Volume Laterality Sputum specimen 04/11/2016 11:10 04/11/20 16 (specimen) PM CDT 11:14 PM CDT Kandace Barnes PA-C LAB - MICRO GENERAL ORDERA BLEChristiano Performing Organization Address City/[facility]/ZIP Code Phon e Number [id number] [place] [address] [address] [place], [place] [address], [facility] [phone] CT Abdomen Pelvis w/o Contrast (04/11/2016 6:47 PM CDT) Anatomical Region Laterality Modality Abdomen/Pelvis, SUBRAD CT BODY, UMP CT ABDOMEN PELVIS Computed Tomography Specimen (Source) Anatomical Location Collection Method / Collectio n Time Received Time / Laterality Volume Impressions 04/11/2016 7:09 PM CDT IMPRESSION: 1. Extensive right lower lobe infiltrate compatible with pneumonia. 2. Hydronephrosis on the right without u reteral stones. Clinical correlation needed to exclude right-side d pyelonephritis. DYLAN EASON MD Narrative 04/11/2016 7:[address] ABDOMEN AND PELVIS WITHOUT CONTRAST 04/11/2016 6:47 PM HISTORY: RLQ pain. COMPARISON: 03/05/2008. TECHNIQUE: Volumetric helical acquisitio n of CT images from the lung bases through the symphysis pubis withou t intravenous contrast. Radiation dose for this scan was reduced using automated exposure control, adjustment of the mA and/or kV according to patient size, or iterative reconstruction technique. FINDINGS: Extensive right lower lobe inf iltrate. The liver, spleen, adrenal glands, kidneys, and pancreas de monstrate no worrisome focal lesion in the absence of intravenous con trast. There are no dilated loops of small intestine or large bowel to suggest ileus or obstruction. Appendix is normal. Minimal hydroureter, of uncertain clinical significance. Clinical correlat ion to exclude pyelonephritis needed. No renal, ureteral, or bladder s tones. Nonaneurysmal aorta. No free air or free fluid. Procedure Note Dylan Eason MD - 04/11/2016Fo rmatting of this note might be different from the original. CT ABDOMEN AND PELVIS WITHOUT CONTRAST 6:47 PM HISTORY: RLQ pain. COMPARISON: 03/05/2008. TECHNIQUE: Volumetric helical acquisitio n of CT images from the lung bases through the symphysis pubis withou t intravenous contrast. Radiation dose for this scan was reduced using automated exposure control, adjustment of the mA and/or kV according to patient size, or iterative reconstruction technique. FINDINGS: Extensive right lower lobe inf iltrate. The liver, spleen, adrenal glands, kidneys, and pancreas de monstrate no worrisome focal lesion in the absence of intravenous con trast. There are no dilated loops of small intestine or large bowel to suggest ileus or obstruction. Appendix is normal. Minimal hydroureter, of uncertain clinical significance. Clinical correlat ion to exclude pyelonephritis needed. No renal, ureteral, or bladder s tones. Nonaneurysmal aorta. No free air or free fluid. IMPRESSION: 1. Extensive right lower lobe infiltrate compatible with pneumonia. 2. Hydronephrosis on the right without u reteral stones. Clinical correlation needed to exclude right-side d pyelonephritis. DYLAN EASON MD Kong Foote MD IMG CT ORDERABLES (ABNORMAL) UA with Microscopic (04/11/2016 5:45 PM CDT) Patholo gist Method Time Signature Color Urine Light Yellow [facility] Appearance Urine Clear [facility] Glucose Urine Negative NEG mg/dL [facility] Bilirubin Urine Negative NEG [facility] Ketones Urine 10 (A) NEG mg/dL [facility] Specific [place] 1.009 1.003 - [place] Urine 1.035 [facility] Blood Urine Negative NEG [facility] pH Urine 7.5 (H) 5.0 - 7.0 [place] pH [facility] Protein Albumin 10 (A) NEG mg/dL [facility] Urobilinogen 2.0 0.0 - 2.0 [place] mg/dL mg/dL [facility] Nitrite Urine Negative NEG [facility] Leukocyte Negative NEG [place] Esterase Urine [facility] Source Midstream [facility] WBC Urine <1 0 - 2 [facility] RBC Urine 0 0 - 2 [facility] Specimen Anatomical Collection Method Collection Time Receive d Time (Source) Location / / Volume Laterality Urine specimen MID-STREAM URINE 04/11/2016 5:45 PM 09/2016 5:58 (specimen) SPECIMEN / Unknown CDT PM CDT Kong Foote MD LAB - URINE ORDERABLES Performing Organization Address City/State/ZIP Code Phon e Number [facility] [place] [address] [place] [address] [facility] [address] [phone] (ABNORMAL) ISTAT gases lactate john POCT (04/11/2016 5:38 PM CDT) [facility] gist Method Time Signature Ph Venous 7.44 (H) 7.32 - [facility] CARE 7.43 pH TEST, HANDHELD METER PCO2 Venous 38 (L) 40 - 50 mm [facility] Hg TEST, HANDHELD METER PO2 Venous 26 25 - 47 mm [facility] Hg TEST, HANDHELD METER Bicarbonate 26 21 - 28 [facility] Venous mmol/L TEST, HANDHELD METER O2 Sat Venous 51 % [facility] CARE TEST, HANDHELD METER Lactic Acid 1.2 0.7 - 2.1 [facility] mmol/L TEST, HANDHELD METER Specimen Anatomical Collection Method Collection Time Receive d Time (Source) Location / / Volume Laterality 04/11/2016 5:38 PM 6 5:45 CDT PM CDT Kong Foote MD LAB - BEAKER POCT Performing Organization Address City/[facility]/ZIP Code Phon e Number [facility] POINT OF CARE TEST, HANDHELD METER POINT OF CARE TEST, HANDHELD METER Lactic acid whole blood (04/11/2016 5:32 PM CDT) P athologist Signature Lactic Acid 1.3 0.7 - 2.1 [place] mmol/L [facility] Specimen Anatomical Collection Method Collection Time Receive d Time (Source) Location / / Volume Laterality Blood specimen 04/11/2016 5:32 PM 016 6:09 (specimen) CDT PM CDT Kong Foote MD LAB - BLOOD ORDERABLES Performing Organization Address [facility]/ZIP Code Phon e Number [facility] [address], [place] [address] [facility] [address] [place], [place] [address], [facility] [phone] Mononucleosis screen (04/11/2016 5:32 PM CDT) [facility] Method Time Signature Mononucleosis Negative NEG [facility] Specimen Anatomical Collection Method Collection Time Receive d Time (Source) Location / / Volume Laterality Blood specimen 04/11/2016 5:32 PM 016 6:08 (specimen) CDT PM CDT Kong Foote MD LAB - BLOOD ORDERABLES Performing Organization Address [facility]/ZIP [facility] Phon e Number [facility] [address], [place] [address] [facility] [address] [place], [place] [address], [facility] [phone] (ABNORMAL) CBC with platelets differential (04/11/2016 5:32 PM CDT) Component Value Ref Test Analysis Performed At [facility] Range Method Time Signature WBC 9.3 4.0 - [place] 11.0 [facility] 10e9/L [facility] RBC Count 4.23 (L) 4.4 - [place] 5.9 [facility] 10e12/L [facility]OSPITAL Hemoglobin 14.0 13.3 - [place] 17.7 [facility] g/dL HOSPITAL Hematocrit 39.3 (L) 40.0 - [place] 53.0 % [facility] MCV 93 78 - 100 [place] fl [facility] MCH 33.1 (H) 26.5 - [place] 33.0 pg [facility] MCHC 35.6 31.5 - [place] 36.5 [facility] g/dL [facility] RDW 12.4 10.0 - [place] 15.0 % [facility] Platelet Count 145 (L) 150 - [place] 450 [facility] 10e9/L [facility] Diff Method Manual [place] Differential [facility] % Neutrophils 82.0 % [facility] % Lymphocytes 9.0 % [facility] % Monocytes 9.0 % [facility] % Eosinophils 0.0 % [facility] % Basophils 0.0 % [facility] Absolute 7.6 1.6 - [place] Neutrophil 8.3 [facility] 10e9/L [facility] Absolute 0.8 0.8 - [place] Lymphocytes 5.3 [facility] 10e9/L [facility] Absolute 0.8 0.0 - [place] Monocytes 1.3 [facility] 10e9/L [facility] Absolute 0.0 0.0 - [place] Eosinophils 0.7 [facility] 10e9/L [facility]OSPITAL Absolute 0.0 0.0 - [place] Basophils 0.2 [facility] 10e9/L [facility] RBC Morphology Consistent with [place] reported results [facility] Platelet Normal [place] Estimate [facility] Specimen Anatomical Collection Method Collection Time Receive d Time (Source) Location / / Volume Laterality Blood specimen 04/11/2016 5:32 PM 016 6:08 (specimen) CDT PM CDT Sybil Snyder MD LAB - BLOOD ORDERABLES Performing Organization Address City/State/ZIP Code Phon e Number [facility] [address], [place] [address] HOSPITAL [facility] [address] [place], [place] [address] [phone] (ABNORMAL) Comprehensive metabolic panel (04/11/2016 5:32 PM CDT) athologist Signature Sodium 131 (L) 133 - 144 [place] mmol/L [facility] Potassium 3.7 3.4 - 5.3 [place] mmol/L [facility] Chloride 97 94 - 109 [place] mmol/L [facility] Carbon Dioxide 28 20 - 32 [place] mmol/L [facility] Anion Gap 6 3 - 14 [place] mmol/L [facility] Glucose 122 (H) 70 - 99 [place] mg/dL [facility] Urea Nitrogen 6 (L) 7 - 30 [place] mg/dL [facility] Creatinine 1.06 0.66 - [place] 1.25 mg/dL [facility] GFR Estimate 89 >60 [place] mL/min/1.[address] Comment: Non GFR Calc GFR Estimate If Black >90 >60 mL/min/1.7m2 F [facility] GFR Calc HOSP ITAL Calcium 8.6 8.5 - 10.1 mg/dL [facility] Bilirubin Total 0.8 0.2 - 1.3 mg/dL [facility] Albumin 3.4 3.4 - 5.0 g/dL [facility] Protein Total 7.2 6.8 - 8.8 g/dL [facility] Alkaline Phosphatase 109 40 - 150 U/L [facility] ALT 71 (H) 0 - 70 U/L [facility] AST 26 0 - 45 U/L [facility] Specimen Anatomical Collection Method Collection Time Receive d Time (Source) Location / / Volume Laterality Blood specimen 04/11/2016 5:32 PM 016 6:08 (specimen) CDT PM CDT Sybil Snyder MD LAB - BLOOD ORDERABLES Performing Organization Address City/State/ZIP Code Phon e Number [facility] [address], [place] [address] [facility] [address] [phone] documented in this encounter Visit Diagnoses Diagnosis Ear pain, right - Primary Pneumonia of right lower lobe due to inf ectious organism Sepsis, due to unspecified organism Pneumonia Pneumonia, organism unspecified documented in this encounter Administered Medications Inactive Administered Medications - up to 3 most recent administrations Medication Order MAR Action Action Date Dose Rate Site 0.9% sodium chloride BOLUS New Bag 04/11/2016 9:00 AM CDT 1,000 mLs 3000 mL/hr Intravenous, 1,000 mL, ONCE, at 3,000 mL/hr, Administer over 20 Minutes, On Tue04/11/16 at 1639, For 1 dose, (unless history or symptoms of pulmonary edema) 0.9% sodium chloride BOLUS New Bag 04/11/2016 5:49 PM CDT 1,000 mLs 1000 mL/hr Intravenous, 1,000 mL, ONCE, at 1,000 mL/hr, Administer over 1 Hours, On Tue04/11/16 at 1741, For 1 dose 0.9% sodium chloride infusion Rate/Dose Verify 04/13/2016 10:07 PM CDT 100 mL/hr at 100 mL/hr, Intravenous, CONTINUOUS, Starting on Tue04/11/16 at 2259, Until Tue04/14/16 at 0849 New 04/13/2016 4:43 PM CDT 100 mL/hr 04/13/2016 6:06 AM CDT 100 mL/hr acetaminophen (TYLENOL) 500 MG tablet Given 04/12/2016 12:07 AM CDT 1,000 mg Starting on Tue04/12/16 at 0008, For 1 dose, CAROLYN PRADHAN: cabinet override Maximum acetaminophen dose from all sources = 75 mg/kg/day not to exceed 4 gram acetaminophen (TYLENOL) tablet 1,000 mg Given 04/13/2016 8:25 PM CDT 1,000 mg 1,000 mg, Oral, EVERY 8 HOURS PRN, fever, Starting on Tue04/12/16 at 0004, Maximum acetaminophen dose from all sources = 75 mg/kg/day not to exceed 4 gram Given 04/13/2016 8:39 AM CDT 1,000 mg Given 04/12/2016 6:34 PM CDT 1,000 mg acetaminophen (TYLENOL) tablet 975 mg Given 04/11/2016 4:42 PM CDT 975 mg 975 mg, Oral, ONCE, On Tue04/11/16 at 1641, For 1 dose, Maximum acetaminophen dose from all sources = 75 mg/kg/day not to exceed 4 grams/day. azithromycin (ZITHROMAX) 500 mg in New Bag 04/14/2016 9:11 AM CDT 500 mg 250 mL/hr NaCl 0.9 % 250 mL intermittent infusion Routine, 500 mg, Intravenous, EVERY 24 HOURS, First dose on Tue04/13/16 at 0930, Indications: Community Acquired Pneumonia New 04/13/2016 9:49 AM CDT 500 mg azithromycin (ZITHROMAX) tablet 250 mg Given 04/12/2016 6:34 PM CDT 250 mg Routine, 250 mg, Oral, EVERY 24 HOURS, First dose on Tue04/12/16 at 1700, For 4 doses, Schedule subsequent doses 24 hours from first dose., Indications: Community Acquired Pneumonia azithromycin (ZITHROMAX) tablet 250 mg Given 04/14/2016 11:10 AM CDT 250 mg AMRIT, 250 mg, Oral, ONCE, On Tue04/14/16 at 0924, For 1 dose, Indications: Community Acquired Pneumonia azithromycin (ZITHROMAX) tablet 500 mg Given 04/11/2016 7:32 PM CDT 500 mg STAT, 500 mg, Oral, ONCE, On Tue04/11/16 at 1913, For 1 dose, Indications: pneumonia benzonatate (TESSALON) capsule 200 mg Given 04/13/2016 9:39 AM CDT 200 mg 200 mg, Oral, 3 TIMES DAILY PRN, cough, Starting on Tue04/13/16 at 0115 Given 04/13/2016 1:46 AM CDT 200 mg cefTRIAXone (ROCEPHIN) 1 g vial to attach to New Bag 6 7:33 PM CDT 1 g NS 100 mL bag for ADULTS or NS 50 mL bag for PEDS STAT, 1 g, Intravenous, ONCE, On Tue04/11/16 at 1913, For 1 dose, Indications: pneumo cefTRIAXone (ROCEPHIN) 2 g vial to attach to New Bag 6 6:26 AM CDT 2 g NS 100 ml bag for ADULTS or NS 50 ml bag for PEDS Routine, 2 g, Intravenous, EVERY 24 HOURS, First dose on Tue04/12/16 at 0700, FIRST DOSE STAT, start within 4 hours of patient's arrival to hospital., Indications: Community Acquired Pneumonia New 04/13/2016 6:06 AM CDT 2 g New Bag 04/12/2016 6:44 AM CDT 2 g diphenhydrAMINE (BENADRYL) injection 25 mg Given 04/11/2016 7:02 PM CDT 25 mg 25 mg, Intravenous, ONCE, On 04/11/16 at 1832, For 1 dose ibuprofen (ADVIL,MOTRIN) tablet 600 mg Given 04/14/2016 3:17 AM CDT 600 mg 600 mg, Oral, EVERY 6 HOURS PRN, other, mild pain, Starting on 04/11/16 at 2258, Alternate acetaminophen (if ordered) with ibuprofen Given 04/13/2016 12:03 PM CDT 600 mg Given 04/13/2016 12:27 AM CDT 600 mg iohexol (OMNIPAQUE) 140 mg/mL solution (for Given 04/11/2016 5:50 PM CDT 25 mLs oral use) 25 mL 25 mL, Oral, EVERY 30 MIN, First dose on 04/11/16 at 1746, For 2 doses, Dilute 50 mL contrast into 600mL of water/juice/soda to make a total of 650mL. Give age appropriate amount, half the total volume now and half in 30 minutes so all fluid is in by CT in 60 minutes. 0-6 mo: 100mL total fluid 6 mo-1 yr: 150 mL total fluid 1-3 yrs: 200 mL total fluid 3-6 yrs: 250 mL total fluid 6-8 yrs: 300 mL total fluid 8-10 yrs: 400 mL total fluid 10-16 yrs: 500 mL total fluid 16 yrs- adult: 650 mL total fluid ketorolac (TORADOL) injection 30 mg Given 04/11/2016 7:01 PM CDT 30 mg 30 mg, Intravenous, ONCE, On 04/11/16 at 1832, For 1 dose, Do not give within 6 hours of Ibuprofen. melatonin tablet 1 mg Given 04/12/2016 1:06 AM CDT 1 mg 1 mg, Oral, AT BEDTIME, First dose on 04/12/16 at 0029, For 1 dose metoclopramide (REGLAN) injection 10 mg Given 04/11/2016 7:01 PM CDT 10 mg 10 mg, Intravenous, ONCE, On 04/11/16 at 1832, For 1 dose, Avoid use if patient has full bowel obstruction or perforation. potassium chloride SA (K-DUR,KLOR-CON M) CR Given 04/14/2016 9:10 AM CDT 20 mEq tablet 20 mEq 20 mEq, Oral, ONCE, On Tue04/14/16 at 0851, For 1 dose, DO NOT CRUSH. sodium chloride (PF) 0.9% PF flush 3 mL Given 04/14/2016 9:10 AM CDT 3 mLs 3 mL, Intracatheter, EVERY 8 HOURS, First dose on Tue04/11/16 at 2259, And Q1H PRN, to lock peripheral IV dormant line. sodium chloride 3 % nebulizer solution 3 mL Given 04/13/2016 3:09 PM CDT 3 mLs 3 mL, Nebulization, ONCE, On Tue04/13/16 at 1210, For 1 dose sodium chloride 3 % nebulizer solution 3 mL Given 04/14/2016 6:09 AM CDT 3 mLs 3 mL, Nebulization, DAILY PRN, wheezing, Starting on Tue04/13/16 at 2236 temazepam (RESTORIL) capsule 15 mg Given 04/14/2016 3:17 AM CDT 15 mg 15 mg, Oral, AT BEDTIME PRN, sleep, Starting on Tue04/13/16 at 0207 Given 04/13/2016 2:17 AM CDT 15 mg documented in this encounter Active and Recently Administered Medications Times are shown in CDT. Scheduled Medication Order 04/12/2016 04/13/2016 04/14/2016 azithromycin (ZITHROMAX) 500 mg in NaCl 0.9 % 250 mL intermittent infusion (CANCELED) 0949 (New Bag - Provider: Heriberto Richardson RN) 0911 (New Bag - Provider: Jazlyn Cabello, NICOLA)1103 (Stopped - Provider: Jazlyn Cabello, NICOLA) 500 mg, Intravenous, EVERY 24 HOURS, Fir st dose on Tue04/13/16 at 0930, Indications: Community Acquired Pneumonia azithromycin (ZITHROMAX) tablet 250 mg (CANCELED) 1834 (Given - Provider: Maxine Pabon RN - Comment: per pt) 250 mg, Oral, EVERY 24 HOURS, First dose on Tue04/12/16 at 1700, For 4 doses, Schedule subsequent doses 24 hours from first dose., Indications: Community Acquired Pneumonia azithromycin (ZITHROMAX) tablet 250 mg (COMPLETED) 1110 (Given - Provider: Jazlyn Cabello, NICOLA) 250 mg, Oral, ONCE, Tue04/14/16 at 0924, For 1 dose, Indications: Community Acquired Pneumonia cefTRIAXone (ROCEPHIN) 2 g vial to attac h to NS 100 ml bag for ADULTS or NS 50 ml bag for PEDS (CANCELED) 0644 (New Bag - Provider: Carolyn Pradhan RN) 0606 (New Bag - Provider: Nori Kelley LPN) 0626 (New Bag - Provider: Nori Kelley LPN)1207 (Stopped - Provider: Jazlyn Cabello, RN - Comment: stopped on previous shift) 2 g, Intravenous, EVERY 24 HOURS, First dose on Tue04/12/16 at 0700, FIRST DOSE STAT, start within 4 hours of patient's arrival to hospital., Indications: Community Acquired Pneumonia melatonin tablet 1 mg (COMPLETED) 0106 (Given - Provider: Alexandru Pradhan, NICOLA) 1 mg, Oral, AT BEDTIME, First dose on Tue04/12/16 at 0029, For 1 dose potassium chloride SA (K-DUR,KLOR-CON M) CR tablet 20 mEq (COMPL ETED) 0910 (Given - Provider: Jazlyn Cabello, RN) 20 mEq, Oral, ONCE, Tue04/14/16 at 0851, For 1 dose, DO NOT PETTY H. sodium chloride (PF) 0.9% PF flush 3 mL (CANCELED) 003 2 (Not Given - Provider: Carolyn Pradhan RN - Reason: IV Infusing)0659 (Canceled Entry - Provider: Carolyn Pradhan RN)1756 (Not Given - Provider: Maxine Pabon, NICOLA - Reason: IV Infusing) 0940 (Not Given - Provider: Heriberto Richardson , NICOLA - Reason: IV Infusing)1544 (Not Given - Provider: Heriberto Richardson, RN - Reason: IV Infusing)2346 (Not Given - Provider: Nori Kelley LPN - Reason: IV Infusing) 0910 (Given - Provider: Jazlyn Cabello, RN) 3 mL, Intracatheter, EVERY 8 HOURS, Firs t dose on Tue04/11/16 at 2259, And Q1H PRN, to lock peripheral IV dormant line. 2317 (Not Given - Provider: Nori Kelley LPN - Reason: IV Infusing) sodium chloride 3 % nebulizer solution 3 mL (COMPLETED) 1509 (Given - Provider: Kandace Hung, RT) 3 mL, Nebulization, ONCE, Tue04/13/16 at 1210, For 1 dose Continuous Medication Order 04/12/2016 04/13/2016 04/14/2016 0.9% sodium chloride infusion (CANCELED) 0106 (New Bag - Provider: Carolyn Pradhan, RN)1036 (New Bag - Provider: Jesusita Velasco, RN)2012 (New Bag - Provider: Maxine Pabon, RN) 0606 (New Bag - Provider: Nori garcia LPN)1643 (New Bag - Provider: Lalitha Ashraf, RN)2207 (Rate/Dose Verify - Provider: Carolyn Pradhan, RN) 0912 (Stopped - Provider: Jazlyn Cabello, RN) at 100 mL/hr, Intravenous, CONTINUOUS, S tarting 04/11/16 at 2259, Until Tue04/14/16 at 0849 PRN Medication Order 04/12/2016 04/13/2016 04/14/2016 acetaminophen (TYLENOL) tablet 1,000 mg (CANCELED) 102 8 (Given - Provider: Jesusita Velasco, NICOLA)1834 (Given - Provider: Maxine Pabon, NICOLA) 0839 (Given - Provider: Heriberto Richardson, RN)202 (Given - Provider: Carolyn Pradhan, NICOLA) 1,000 mg, Oral, EVERY 8 HOURS PRN, fever , Starting Tue04/12/16 at 0004, Maximum acetaminophen dose from all sources = 75 mg/kg/day not to exceed 4 gram benzonatate (TESSALON) capsule 200 mg (CANCELED) 0146 (Given - Provider: Nori Kelley LPN)0939 (Given - Provider: Heriberto Richardson, RN) 200 mg, Oral, 3 TIMES DAILY PRN, Starting Tue04/13/16 at 0115, c ough ibuprofen (ADVIL,MOTRIN) tablet 600 mg (CANCELED) 0106 (Given - Provider: Carolyn Pradhan RN)0859 (Given - Provider: Jesusita Velasco RN)1601 (Given - Provider: Maxine Pabon RN) 0027 (Given - Provider: Nori Kelley LPN)1203 (Given - Provider: Heriberto Richardson, RN) 0317 (Given - Provider: Abigail Kate, RN) 600 mg, Oral, EVERY 6 HOURS PRN, other, mild pain, Starting 04/11/16 at 2258, Alternate acetaminophen (if ordered) with ibuprofen sodium chloride 3 % nebulizer solution 3 mL (CANCELED) 0609 (Given - Provider: Monica Ventura, RT) 3 mL, Nebulization, DAILY PRN, wheezing, Starting Tue04/13/16 at 2236 temazepam (RESTORIL) capsule 15 mg (CANCELED) 0217 (Given - Provider: Abigail Kate, RN) 0317 (Given - Provider: Abigail Kate, RN) 15 mg, Oral, AT BEDTIME PRN, sleep, Starting Tue04/13/16 at 0207 No Frequency Medication Order 04/12/2016 04/13/2016 04/14/2016 acetaminophen (TYLENOL) 500 MG tablet (COMPLETED) 0007 (Given - Provider: Carolyn Pradhan RN) Starting on 04/12/16 at 0008, For 1 d oseMARY HEIDI: cabinet override Maximum acetaminophen dose from all sources = 75 mg/kg/day not to exceed 4 gram documented in this encounter Care Teams Vp [employer] Relationship Specialty Start Date End Date Annalisa Silva NP PCP - General Nurse Practitioner - Adult 08/26/15 [address] [place] [address] documented as of this encounter
--- OUTSIDE RECORDS SUMMARY | 2022-09-26 20:25 | XMS_ITS | Encounter Summary ---
:1995 Author Organization [place] Address [facility] [place] [address] Care Team Providers Name Role Phone Annalisa Silva RESEARCH TECHNOLOGIST Primary Care Provider [phone] Reason for Visit Reason Onset Date Comments Hospital F/U 04/15/2016 Pneumonia Encounter Details Date Type Department Care Team Description 04/15/2016 Telephone [facility] Annalisa Silva [facility] F/U Clinic Meghan Yousif NP (Pneumonia) [address] [place] [address] [place], [place] [phone] (Wo rk) [address] [phone] Social History Tobacco Use Types Packs/Day Years [...] Notes Telephone Encounter - Bailey Britt - 04/15/2016 12:25 PM CDT F/U Date: 04/14/16 Diagnosis: Pneumonia Is patient active in care coordination? No Was patient in TCU? No Next 5 appointments (look out 90 days) Apr 19, 2016 12:40 PM Office Visit with Annalisa Silva [facility] [address] [facility] [address] documented in this encounter Plan of Treatment Upcoming Encounters Date Type Specialty Care Team Description 11/04/2022 Office Visit Internal Medicine Marcy Ricketts, CONTRACT ADMINISTRATOR ELECTRICAL APPRENTICE [address] [place], [place] [address] (Wo rk) documented as of this encounter Visit Diagnoses Not on filedocumented in this encounter Care Teams Shactor Helper Relationship Specialty Start Date End Date Annalisa Silva NP PCP - General Nurse Practitioner - Adult 08/26/15 [address] [place] [address] documented as of this encounter
--- OUTSIDE RECORDS SUMMARY | 2022-09-26 20:25 | XMS_ITS | Encounter Summary ---
:1995 Author Organization [place] Address [facility] [place] [address] Care Team Providers Name Role Phone Ricardo Annalisa Yousif ATTENDING PSYCHIATRIST Primary Care Provider [phone] Reason for Visit Reason Comments Pre-Op Exam Encounter Details Date Type Department Care Team Description 07/22/2016 Office Visit [facility] Mike Fierro MD Preop general physical exam (Primary Dx) ; Clinic [place] [address] Tear of right meniscus as cu rrent injury, sequela [address] [place] [address] [phone] Social History Tobacco Use Types Packs/Day Years [...] Sign Reading Time Taken Comments Blood Pressure 134/68 07/22/2016 5:22 PM CDT Pulse 94 07/22/2016 5:22 PM CDT Temperature 36.9 ??C (98.5 ??F) 07/22/2016 5:22 PM CDT Respiratory Rate 12 07/22/2016 5:22 PM CDT Oxygen Saturation 96% 07/22/2016 5:22 PM CDT Inhaled Oxygen Concentration - - Weight 129.3 kg (285 lb) 07/22/2016 5:22 PM CDT Height 188 cm (6' 2) 07/22/2016 5:22 PM CDT Body Mass Index 36.59 07/22/2016 5:22 PM CDT documented in this encounter Patient Instructions Patient InstructionsMariola Veliz - 07/22/2016 5:12 PM CDT Before Your Surgery ??? Call your surgeon if there is any change in your health. This includes signs of a cold or flu (such as a sore throat, runny nose, cough, rash or fever). ??? Do not smoke, drink alcohol or take over the counter medicine (unless your surgeon or primary care doctor tells you to) for the 24 hours before and after surgery. ??? If you take prescribed drugs: Follow your doctor???s orders about which medicines to take and which to stop until after surgery. ??? Eating and drinking prior to surgery: follow the instructions from your surgeon ??? Take a shower or bath the night before surgery. Use the soap your surgeon gave you to gently clean your skin. If you do not have soap from your surgeon, use your regular soap. Do not shave or scrubthe surgery site. Wear clean pajamas and have clean sheets on your bed. Before Your Surgery Call your surgeon if there is any change in your health. This includes signs of a cold or flu (such as a sore throat, runny nose, cough, rash or fever). Do not smoke, drink alcohol or take over the counter medicine (unless your surgeon or primary care doctor tells you to) for the 24 hours before and after surgery. If you take prescribed drugs: Follow your doctor???s orders about which medicines to take and which to stop until after surgery. Eating and drinking prior to surgery: follow the instructions from your surgeon Take a shower or bath the night before surgery. Use the soap your surgeon gave you to gently clean your skin. If you do not have soap from your surgeon, use your regular soap. Do not shave or scrub thesurgery site. Wear clean pajamas and have clean sheets on your bed. Okay to go ahead with surgery as planned. Everything looks fine. documented in this encounter Progress Notes Mike Fierro MD - 07/22/2016 5:12 PM CDT . [address] [facility] [address] Dept: [phone] PRE-OP EVALUATION: Today's date: 07/22/2016 Seamus Barnes (: 1995) presents for pre-operative evaluation assessment as requested byDr. Tye Hsu. He requires evaluation and anesthesia risk assessment prior to undergoing surgery/procedure for treatment of torn meniscus, right . Proposed procedure: right meniscus repair Date of Surgery/ Procedure: 07/29/2016 Time of Surgery/ Procedure: 1230pm Hospital/Surgical Facility: [facility] Fax number for surgical facility: Primary Physician: Annalisa Silva Type of Anesthesia Anticipated: to be determined Patient has a Health Care Directive or Living Will: NO 1. NO - Do you have a history of heart attack, stroke, stent, bypass or surgery on an artery in the head, neck, heart or legs? 2. NO - Do you ever have any pain or discomfort in your chest? 3. NO - Do you have a history of Heart Failure? 4. NO - Are you troubled by shortness of breath when: walking on the level, up a slight hill or at night? 5. NO - Do you currently have a cold, bronchitis or other respiratory infection? 6. NO - Do you have a cough, shortness of breath or wheezing? 7. NO - Do you sometimes get pains in the calves of your legs when you walk? 8. NO - Do you or anyone in your family have previous history of blood clots? 9. NO - Do you or does anyone in your family have a serious bleeding problem such as prolonged bleeding following surgeries or cuts? 10. NO - Have you ever had problems with anemia or been told to take iron pills? 11. NO - Have you had any abnormal blood loss such as black, tarry or bloody stools, or abnormal vaginal bleeding? 12. NO - Have you ever had a blood transfusion? 13. NO - Have you or any of your relatives ever had problems with anesthesia? 14. NO - Do you have sleep apnea, excessive snoring or daytime drowsiness? 15. NO - Do you have any prosthetic heart valves? 16. NO - Do you have prosthetic joints? 17. NO - Is there any chance that you may be ? HPI: Brief HPI related to upcoming procedure: No recent illnesses. See problem list for active medical problems. Problems all longstanding and stable, except as noted/documented. See ROS for pertinent symptoms related to these conditions. . MEDICAL HISTORY: Patient Active Problem List Diagnosis Date Noted ??? Pneumonia 04/11/2016 Priority: Medium ??? Obesity 05/30/2013 Priority: Medium No past medical history on file. No past surgical history on file. Current Outpatient Prescriptions Medication Sig Dispense Refill ??? Metoclopramide HCl (REGLAN PO) Take 5 mg by mouth OTC products: NSAIDS Allergies Allergen Reactions ??? Minocycline Itching and Rash Latex Allergy: NO Social History Substance Use Topics ??? Smoking status: Passive Smoke Exposure - Never Smoker ??? Smokeless tobacco: Never Used Comment: dad smokes outside ??? Alcohol Use: Yes Comment: occasional History Drug Use No REVIEW OF SYSTEMS: ROS: chest discomfort, dizziness and palpitations with anxiety episodes. None of these with exertion. REVIEW OF SYSTEMS are as listed above or negative for the following: Constitutional, HEENT, respiratory, cardiovascular, gastrointestinal, genitourinary, hematologic, and neurologic. EXAM: Vitals: BP 134/68 mmHg Pulse 94 Temp(Src) 98.5 ??F (36.9 ??C) (Oral) Resp 12 Ht 6' 2 (1.88 m) Wt 285 lb (129.275 kg) BMI 36.58 kg/m2 SpO2 96% BMI= Body mass index is 36.58 kg/(m^2). GENERAL APPEARANCE: healthy, alert and no distress HENT: ear canals and TM's normal and nose and mouth without ulcers or lesions RESP: lungs clear to auscultation - no rales, rhonchi or wheezes CV: regular rate and rhythm, normal S1 S2, no S3 or S4 and no murmur, click or rub ABDOMEN: soft, nontender, no HSM or masses and bowel sounds normal NEURO: Normal strength and tone, sensory exam grossly normal, mentation intact and speech normal DIAGNOSTICS: No labs or EKG required for low risk surgery (cataract, skin procedure, breast biopsy, etc) Recent Labs Lab Test 04/14/16 0600 04/13/16 0620 04/12/16 0630 HGB 13.1* 12.7* 13.9 PLT 195 165 145* NA 140 -- 136 POTASSIUM 3.3* -- 4.0 CR 0.84 -- 1.00 IMPRESSION: Reason for surgery/procedure: right meniscus repair Diagnosis/reason for consult: Preoperative risk assessment. The proposed surgical procedure is considered INTERMEDIATE risk. REVISED CARDIAC RISK INDEX The patient has the following serious cardiovascular risks for perioperative complications such as ([place], PE, VFib and 3?? AV Block): No serious cardiac risks INTERPRETATION: 0 risks: Class I (very low risk - 0.4% complication rate) The patient has the following additional risks for perioperative complications: No identified additional risks ICD-10-CM 1. Preop general physical exam Z01.818 RECOMMENDATIONS: --Approval given to proceed with proposed procedure, without further diagnostic evaluation Signed Electronically by: Mike Fierro MD, Copy of this evaluation report is provided to requesting physician. [facility] Preop Guidelines documented in this encounter Nursing Notes Mariola Veliz - 07/22/2016 5:24 PM CDT Chief Complaint Patient presents with ??? Pre-Op Exam Initial BP 134/68 mmHg Pulse 94 Temp(Src) 98.5 ??F (36.9 ??C) (Oral) Resp 12 Ht 6' 2 (1.88 m) Wt 285 lb (129.275 kg) BMI 36.58 kg/m2 SpO2 96% Estimated body mass index is 36.58 kg/(m^2) as calculated from the following: Height as of this encounter: 6' 2 (1.88 m). Weight as of this encounter: 285 lb (129.275 kg). BP completed using cuff size: large JBuffie INTERNATIONAL NURSE documented in this encounter Plan of Treatment Upcoming Encounters Date Type Specialty Care Team Description 11/04/2022 Office Visit Internal Medicine Marcy Ricketts APRN FARM AGENT [address] [place], [place] [address] (Wo rk) documented as of this encounter Visit Diagnoses Diagnosis Preop general physical exam - Primary Other specified pre-operative examinatio n Tear of right meniscus as current injury , sequela documented in this encounter Care Teams Investment Banking Associate Relationship Specialty Start Date End Date Annalisa Silva NP PCP - General Nurse Practitioner - Adult 08/26/15 [address] [place] [address] documented as of this encounter
--- OUTSIDE RECORDS SUMMARY | 2022-09-26 20:25 | XMS_ITS | Encounter Summary ---
:1995 Author Organization [place] Address [facility] [place] [address] Care Team Providers Name Role Phone Annalisa Silva CRACKER OFF Primary Care Provider Annalisa Silva CRACKER OFF Unavailable Encounter Details Date Type Department Care Team Description 03/13/2017 Radiant Appointment [facility] Karen Nassar In jury of [facility] KarenDO [place], initial [id number] [place] [address] [place] [id number] [phone] Social History Tobacco Use Types Packs/Day Years [...] Office Visit Internal Medicine Marcy Ricketts APRN BALING MACHINE TENDER [address] [place], [place] [address] (Wo rk) documented as of this encounter Procedures Procedure Name Priority Date/Time Associated Diagnosis Comme nts XR WRIST LEFT 1 Routine 03/13/2017 10:04 AM Injury of left Res ults for this VIEW CDT thumb, initial procedure are in encounter the results section. documented in this encounter Results XR Wrist Left 1 View (03/13/2017 10:04 AM CDT) Anatomical Region Laterality Modality Left Wrist Left Computed Radiography Specimen (Source) Anatomical Location Collection Method / Collectio n Time Received Time / Laterality Volume Impressions 03/13/2017 11:49 AM CDT IMPRESSION: Unremarkable exam. ALLEN MADRID MD Narrative 03/13/2017 11:49 AM CDT XR WRIST LT 1 VW, XR FINGER LT G/E 2 VW ?? 03/13/2017 10:04 AM HISTORY: ??Unspecified injury of left wr ist, hand and finger(s), initial encounter. Thumb injury Procedure Note Allen Madrid MD - 03/13/2017Formatting o f this note might be different from the original. XR WRIST LT 1 VW, XR FINGER LT G/E 2 VW 03/13/2017 10:04 AM HISTORY: Unspecified injury of left wris t, hand and finger(s), initial encounter. Thumb injury IMPRESSION: Unremarkable exam. ALLEN MADRID MD Karen Nassar DO IMG DIAGNOSTIC IMAGING ORDER CARLEE documented in this encounter Visit Diagnoses Diagnosis Injury of left thumb, initial encounter documented in this encounter Additional Health Concerns Assessment Noted Time PHQ-9 Depression Total Score: 5 09/08/2016 7:22 AM SURGICAL SCHEDULER documented as of this encounter Care Teams Dining Room Maid Relationship Specialty Start Date End Date Annalisa Silva, PCP - General Nurse Practitioner - 08/26/15 04/10/19 CRACKER OFF [facility] [address] [place] [address] Annalisa Silva, PCP - Assigned PCP 09/12/16 11/18/18 CRACKER OFF [address] [place] [address] documented as of this encounter
--- OUTSIDE RECORDS SUMMARY | 2022-09-26 20:25 | XMS_ITS | Encounter Summary ---
:1995 Author Organization [place] Address [facility]0 [facility] [place] [address] Care Team Providers Name Role Phone Annalisa Silva STORE MERCHANDISER Primary Care Provider [phone] Reason for Visit Reason Onset Date Comments Patient Request 05/17/2016 Encounter Details Date Type Department Care Team Description 05/17/2016 Telephone [facility] Annalisa Silva, Patient Request [place] STORE MERCHANDISER [address] [place] [address] [place] [address] [phone] Social History Tobacco Use Types Packs/Day Years [...] this encounter Miscellaneous Notes Telephone Encounter - Isa Daigle - 05/18/2016 8:45 AM CDT No consent to communicate in [facility] for pt's mom. Called pt, notified of message below. Verbalized understanding. Transferred to radiology scheduling. Telephone Encounter - Annalisa Silva NP - 05/18/2016 8:44 AM CDT CXR ordered, notify Pt Annalisa Silva CNP Telephone Encounter - Isa Daigle - 05/18/2016 8:15 AM CDT Per 04/22/16 OV note: follow up CXR in 1 month. CXR pended. Please advise, thanks. Telephone Encounter - Antonietta Anthony - 05/17/2016 5:36 PM CDT Reason for Call: Request for an order or referral: Order or referral being requested: Chest Xray Date needed: as soon as possible Has the patient been seen by the PCP for this problem? YES Additional comments: Pt was hospitalized for pneumonia, she was told to F/U 1 month for Chest E-ray.Please place order and advise Phone number Patient can be reached at: Cell number on file: Telephone Information: Best Time: anytime Can we leave a detailed message on this number? YES Call taken on 05/17/2016 at 5:36 PM by Antonietta Anthony documented in this encounter Plan of Treatment Upcoming Encounters Date Type Specialty Care Team Description 11/04/2022 Office Visit Internal Medicine Marcy Ricketts APRN PROJECT MANAGER FINANCE [address] [place], [place] [address] (Wo rk) documented as of this encounter Results XR Chest 2 Views (05/20/2016 8:05 AM CDT) Anatomical Region Laterality Modality Chest Computed Radiography Specimen (Source) Anatomical Location Collection Method / Collectio n Time Received Time / Laterality Volume Impressions 05/20/2016 12:53 PM CDT IMPRESSION: Clear lungs. URIEL SHY Narrative 05/20/2016 12:53 PM CDT XR CHEST 2 VW 05/20/2016 8:05 AM HISTORY: Pneumonia COMPARISON: 04/13/2016 FINDINGS: Cardiac silhouette and pulmona ry vasculature within normal limits. No focal airspace disease, pleur al effusion or pneumothorax. The previously noted right lower lobe pn eumonia has resolved. Procedure Note Uriel Begum MD - 05/20/2016 XR CHEST 2 VW 05/20/2016 8:05 AM HISTORY: Pneumonia COMPARISON: 04/13/2016 FINDINGS: Cardiac silhouette and pulmona ry vasculature within normal limits. No focal airspace disease, pleur al effusion or pneumothorax. The previously noted right lower lobe pn eumonia has resolved. IMPRESSION: Clear lungs. URIEL BEGUM Annalisa Silva NP IMG DIAGNOSTIC IMAGING ORDER CARLEE documented in this encounter Visit Diagnoses Diagnosis Pneumonia of right lung due to infectiou s organism, unspecified part of lung - Primary Pneumonia of right lung due to infectiou s organism, unspecified part of lung documented in this encounter Care Teams Religion Professor Relationship Specialty Start Date End Date Annalisa Silva NP PCP - General Nurse Practitioner - Adult 08/26/15 [address] [place] [address] documented as of this encounter
--- OUTSIDE RECORDS SUMMARY | 2022-09-26 20:25 | XMS_ITS | Encounter Summary ---
:1995 Author Organization [place] Address [facility] [place] [address] Care Team Providers Name Role Phone Annalisa Silva HELP DESK INTERN Primary Care Provider [phone] Reason for Visit Reason Onset Date Comments X-ray Results 05/20/2016 Encounter Details Date Type Department Care Team Description 05/20/2016 Telephone [facility] Annalisa Silva, BETTY X-ray Results [place] [address] [place] [address] [place] [address] [phone] Social History Tobacco Use Types Packs/Day Years [...] this encounter Miscellaneous Notes Telephone Encounter - Que Alvarez LPN - 05/20/2016 1:49 PM CDT Pt advised.QUE ALVAREZ LPN Telephone Encounter - Annalisa Silva NP - 05/20/2016 1:15 PM CDT Please inform pt repeat CXR normal. No need for further f/u Annalisa Silva CNP documented in this encounter Plan of Treatment Upcoming Encounters Date Type Specialty Care Team Description 11/04/2022 Office Visit Internal Medicine Marcy Ricketts APRN ENVIRONMENTAL PROGRAM MANAGER [address] [place], [place] [address] (Wo rk) documented as of this encounter Visit Diagnoses Not on filedocumented in this encounter Care Teams Wood Window And Door Craftsman Relationship Specialty Start Date End Date Annalisa Silva NP PCP - General Nurse Practitioner - Adult 08/26/15 [address] [place] [address] documented as of this encounter
--- OUTSIDE RECORDS SUMMARY | 2022-09-26 20:25 | XMS_ITS | Encounter Summary ---
:1995 Author Organization [place] Address [address] [place] [address] Care Team Providers Name Role Phone Annalisa Silva NP Primary Care Provider [phone] Annalisa Silva MANAGER OF RADIOLOGY Unavailable Reason for Visit Reason Comments Physical fasting, hx of low HR, possi ble hernia per pt?/RLQ abdominal intermittent pain/sometimes has testicula r pain when it happens for about 2 months-went to [facility] around 2016 for this nothing came back indicating anything Encounter Details Date Type Department Care Team Description 11/14/2017 Office Visit [facility] Annalisa Silva are maintenance (Primary Dx); Clinic Meghan Yousif NP 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; [address] [place] Class 1 obesi ty due to excess calories with body mass index (BMI) of 33.0 to 33.9 in adult, unspecified whether serious [place] [address] [phone] Social History Tobacco Use Types Packs/Day Years [...] Sign Reading Time Taken Comments Blood Pressure 120/78 11/14/2017 9:11 AM SPECTROGRAPHER Pulse 50 11/14/2017 9:11 AM SPECTROGRAPHER Temperature 36.3 ??C (97.4 ??F) 11/14/2017 9:11 AM SPECTROGRAPHER Respiratory Rate - - Oxygen Saturation 100% 11/14/2017 9:11 AM SPECTROGRAPHER Inhaled Oxygen Concentration - - Weight 116.6 kg (257 lb) 11/14/2017 9:11 AM SPECTROGRAPHER Height 185.4 cm (6' 1) 11/14/2017 9:11 AM SPECTROGRAPHER Body Mass Index 33.91 11/14/2017 9:11 AM SPECTROGRAPHER documented in this encounter Progress Notes Annalisa Silva, BETTY - 11/14/2017 9:00 AM CST SUBJECTIVE: CC: Seamus Barnes is an 22 year old male who presents for preventative health visit. Physical Annual: Getting at least 3 servings of Calcium per day:: Yes Bi-annual eye exam:: Yes Dental care twice a year:: Yes Sleep apnea or symptoms of sleep apnea:: None Diet:: Regular (no restrictions) Frequency of exercise:: 2-3 days/week Duration of exercise:: Greater than 60 minutes Taking medications regularly:: Yes Medication side effects:: Not applicable Additional concerns today:: YES Today's PHQ-2 Score: PHQ-2 (??1999 Pfizer) 11/14/2017 Q1: Little interest or pleasure in doing things 0 Q2: Feeling down, depressed or hopeless 0 PHQ-2 Score 0 Q1: Little interest or pleasure in doing things Not at all Q2: Feeling down, depressed or hopeless Not at all PHQ-2 Score 0 Abuse: Current or Past(Physical, Sexual or Emotional)- No Do you feel safe in your environment - Yes Social History Substance Use Topics ??? Smoking status: Passive Smoke Exposure - Never Smoker ??? Smokeless tobacco: Never Used Comment: dad smokes outside ??? Alcohol use Yes Comment: occasional Alcohol Use 11/14/2017 If you drink alcohol, do you typically have greater than 3 drinks per day OR greater than 7 drinks per week??? No Last PSA: No results found for: PSA Reviewed orders with patient. Reviewed health maintenance and updated orders accordingly - Yes BP Readings from Last 3 Encounters: 11/14/17 120/78 03/13/17 122/70 09/07/16 128/84 Wt Readings from Last 3 Encounters: 11/14/17 257 lb (116.6 kg) 09/07/16 285 lb 4.8 oz (129.4 kg) 07/22/16 285 lb (129.3 kg) Patient Active Problem List Diagnosis ??? Obesity ??? Anxiety disorder Past Surgical History: Procedure [...] Father ??? Other Cancer Paternal Grandmother ??? DIABETES Maternal Grandmother ??? DIABETES Other No current outpatient prescriptions on file. Reviewed and updated as needed this visit by clinical staffTobacco Allergies Med Hx Surg Hx Fam Hx Soc Hx Reviewed and updated as needed this visit by Provider Review of Systems CONSTITUTIONAL:POSITIVE for intentional weight loss ENT: NEGATIVE for ear, mouth and throat problems R: NEGATIVE for significant cough or SOB CV: NEGATIVE for chest pain, palpitations or peripheral edema GI: NEGATIVE for nausea, abdominal pain, heartburn, or change in bowel habits male: negative for dysuria, hematuria, decreased urinary stream, erectile dysfunction, urethral discharge M: NEGATIVE for significant arthralgias or myalgia N: NEGATIVE for weakness, dizziness or paresthesias P: NEGATIVE for changes in mood or affect OBJECTIVE: There were no vitals taken for this visit. Physical Exam GENERAL: healthy, alert and no distress NECK: no adenopathy, no asymmetry, masses, or scars and thyroid normal to palpation RESP: lungs clear to auscultation - no rales, rhonchi or wheezes CV: regular rate and rhythm, normal S1 S2, no S3 or S4, no murmur, click or rub, no peripheral edemaand peripheral pulses strong ABDOMEN: soft, nontender, no hepatosplenomegaly, no masses and bowel sounds normal MS: no gross musculoskeletal defects noted, no edema ASSESSMENT/PLAN: ICD-10-CM 1. Health care maintenance Z00.00 CBC with platelets Basic metabolic panel Lipid Profile TSH with free T4 reflex Chlamydia trachomatis PCR Neisseria gonorrhoeae PCR 2. Anxiety disorder due to known physiological condition F06.4 3. Class 1 obesity due to excess calories with body mass index (BMI) of 33.0 to 33.9 in adult, unspecified whether serious comorbidity present E66.09 Z68.33 COUNSELING: Reviewed preventive health counseling, as reflected in patient instructions reports that he is a non-smoker but has been exposed to tobacco smoke. He has never used smokeless tobacco. Estimated body mass index is 36.63 kg/(m^2) as calculated from the following: Height as of 09/07/16: 6' 2 (1.88 m). Weight as of 09/07/16: 285 lb 4.8 oz (129.4 kg). Weight management plan: Discussed healthy diet and exercise guidelines and patient will follow up in12 months in clinic to re-evaluate. Counseling Resources: ATP IV Guidelines Pooled Cohorts Equation Calculator FRAX Risk Assessment ICSI Preventive Guidelines Dietary Guidelines for Americans, 2009 USDA's MyPlate ASA Prophylaxis Lung CA Screening Annalisa Silva NP [facility] Answers for HPI/ROS submitted by the patient on 11/14/2017 PHQ-2 Score: 0 TROGRAPHER documented in this encounter Nursing Notes Kalyn Worthington, ARASELI - 11/14/2017 9:00 AM CST Chief Complaint Patient presents with ??? Physical fasting, hx of low HR, possible hernia per pt?/RLQ abdominal intermittent pain/sometimes has testicular pain when it happens for about 2 months-went to [facility] around August 2017 for this nothing came back indicating anything Initial BP 120/78 (BP Location: Right arm, Cuff Size: Adult Large) Pulse 50 Temp 97.4 ??F (36.3 ??C) (Oral) Ht 6' 1 (1.854 m) Wt 257 lb (116.6 kg) SpO2 100% BMI 33.91 kg/m2 Estimated body mass index is 33.91 kg/(m^2) as calculated from the following: Height as of this encounter: 6' 1 (1.854 m). Weight as of this encounter: 257 lb (116.6 kg). Medication Reconciliation: complete Kalyn Collins CMA TROGRAPHER documented in this encounter Miscellaneous Notes Addendum Note - Carlos Taveras - 11/14/2017 9:55 AM SPECTROGRAPHER Addended by: CARLOS TAVERAS on: 11/14/2017 09:55 AM Modules accepted: Orders TROGRAPHER documented in this encounter Plan of Treatment Upcoming Encounters Date Type Specialty Care Team Description 11/04/2022 Office Visit Internal Medicine Marcy Ricketts APRN GIFTED PROGRAM TEACHER [address] [place] [address] (Wo rk) documented as of this encounter Procedures Procedure Name Priority Date/Time Associated Diagnosis Comme nts NEISSERIA GONORRHOEAE Routine 11/14/2017 9:35 AM Health care Results for this PCR SPECTROGRAPHER maintenance procedure are i n the results section. CHLAMYDIA TRACHOMATIS Routine 11/14/2017 9:35 AM Health care Results for this PCR SPECTROGRAPHER maintenance procedure are i n the results section. CBC WITH PLATELETS & Routine 11/14/2017 9:34 AM Health care R esults for this DIFFERENTIAL SPECTROGRAPHER maintenance procedure are i n the results section. TSH WITH FREE T4 Routine 11/14/2017 9:34 AM Health care Resul ts for this REFLEX SPECTROGRAPHER maintenance procedure are i n the results section. LIPID PROFILE Routine 11/14/2017 9:34 AM Health care Results for this SPECTROGRAPHER maintenance procedure are i n the results section. BASIC METABOLIC PANEL Routine 11/14/2017 9:34 AM Health care Results for this SPECTROGRAPHER maintenance procedure are i n the results section. documented in this encounter Results Neisseria gonorrhoeae PCR (11/14/2017 9:35 AM SPECTROGRAPHER) Analysis Performed At Patho logist Time Signature Specimen Urine 11/14/2017 [facility] 9:36 AM SPECTROGRAPHER [facility] N Gonorrhea Negative NEG^Negati 11/15/2017 [facility] ve 12:46 PM SPECTROGRAPHER [facility] Comment: Negative for N. gonorrhoeae rRNA by robertson scription mediated amplification. A negative result by child development specialist media keara amplification does not preclude the presence of N. gonorrhoeae infection because results are dependent on proper and adequate collection, absence of inhibitors, and sufficient rRNA to be detected. Specimen Anatomical Collection Method Collection Time Receive d Time (Source) Location / / Volume Laterality Urine specimen 11/14/2017 9:35 AM 018 9:36 (specimen) SPECTROGRAPHER AM SPECTROGRAPHER Annalisa Silva NP LAB - MICRO GENERAL ORDERABL ES Performing Organization Address City/[facility] Phon e Number [phone] [place] [address] [place], [place] [address] [address] Chlamydia trachomatis PCR (11/14/2017 9:35 AM SPECTROGRAPHER) [facility] gist Method Time Signature Specimen Urine 11/14/2017 [place] Description 9:36 AM [facility] Chlamydia Negative NEG^Negat 11/15/2017 [facility] Trachomatis PCR jorge 12:46 PM SPECTROGRAPHER [facility] Comment: Negative for C. trachomatis rRNA by robertson scription mediated amplification. A negative result by child development specialist media keara amplification does not preclude the presence of C. trachomatis infection because results are dependent on proper and adequate collection, absence of inhibitors, and sufficient rRNA to be detected. Specimen Anatomical Collection Method Collection Time Receive d Time (Source) Location / / Volume Laterality Urine specimen 11/14/2017 9:35 AM 018 9:36 (specimen) SPECTROGRAPHER AM SPECTROGRAPHER Annalisa Silva NP LAB - MICRO GENERAL ORDERABL ES Performing Organization Address City/[facility] Code Phon e Number [id number] [place] [address] [address] [place], [place] [address] [address] CBC with platelets differential (11/14/2017 9:34 AM SPECTROGRAPHER) P athologist Signature WBC 6.6 4.0 - 11.0 11/14/2017 [facility] 10e9/L 10:03 AM [facility] RBC Count 4.67 4.4 - 5.9 11/14/2017 [facility] 10e12/L 10:03 AM [facility] Hemoglobin 14.9 13.3 - 11/14/2017 [facility] 17.7 g/dL 10:03 AM [facility] Hematocrit 45.0 40.0 - 11/14/2017 [facility] 53.0 % 10:03 AM [facility] MCV 96 78 - 100 11/14/2017 [facility] fl 10:03 AM [facility] MCH 31.9 26.5 - 11/14/2017 [facility] 33.0 pg 10:03 AM [facility] MCHC 33.1 31.5 - 11/14/2017 [facility] 36.5 g/dL 10:03 AM [facility] RDW 13.3 10.0 - 11/14/2017 [facility] 15.0 % 10:03 AM [facility] Platelet Count 213 150 - 450 11/14/2017 [facility] 10e9/L 10:03 AM [facility] Comment: Results confirmed by repeat elinor t % Neutrophils 43.0 % 11/14/2017 1:17 [place] C LINICS PM [facility] % Lymphocytes 46.0 % 11/14/2017 1:17 [place] C [facility] PM [facility] % Monocytes 11.0 % 11/14/2017 1:17 [place] CLI NICS PM [facility] Absolute Neutrophil 2.8 1.6 - 11/14/2017 1:17 [facility]ICS 8.3 PM [facility] 10e9/L Absolute 3.1 0.8 - 11/14/2017 1:17 [place] [facility] CS Lymphocytes 5.3 PM [facility] 10e9/L Absolute Monocytes 0.7 0.0 - 11/14/2017 1:17 [facility]INICS 1.3 PM [facility] 10e9/L RBC Morphology Normal 11/14/2017 1:17 [facility] PM [facility] Platelet Estimate Automated count 11/14/2017 1:17 [facility] confirmed. Platelet PM [facility] morphology is normal. Diff Method Manual Differential 11/14/2017 1:17 [facility] PM [facility] Specimen Anatomical Collection Method Collection Time Receive d Time (Source) Location / / Volume Laterality Blood specimen 11/14/2017 9:34 AM 018 9:56 (specimen) SPECTROGRAPHER AM SPECTROGRAPHER Annalisa Silva MANAGER OF RADIOLOGY LAB - BLOOD ORDERABLES Performing Organization Address City/State/ZIP Code Phon e Number [facility] [address] [place], [place] [address] [address] TSH with free T4 reflex (11/14/2017 9:34 AM SPECTROGRAPHER) athologist Signature TSH 3.23 0.40 - 4.00 11/15/2017 [facility] mU/L 2:14 PM SPECTROGRAPHER [facility] Specimen Anatomical Collection Method Collection Time Receive d Time (Source) Location / / Volume Laterality Blood specimen 11/14/2017 9:34 AM 018 9:35 (specimen) SPECTROGRAPHER AM SPECTROGRAPHER Annalisa Silva MANAGER OF RADIOLOGY LAB - BLOOD ORDERABLES Performing Organization Address [facility]/ZIP Code Phon e Number [facility] [address], [place] [address] Lipid Profile (11/14/2017 9:34 AM SPECTROGRAPHER) athologist Signature Cholesterol 169 <200 mg/dL 11/15/2017 [facility] 2:14 PM [facility] Triglycerides 65 <150 mg/dL 11/15/2017 [facility] CS 2:14 PM [facility] Comment: Fasting specimen HDL Cholesterol 60 >39 mg/dL 11/15/2017 2:14 PM SPECTROGRAPHER [facility] LDL Cholesterol 96 <100 mg/dL 11/15/2017 2:14 PM SPECTROGRAPHER [facility] Comment: Desirable: <100 mg/dl Non HDL Cholesterol 109 <130 mg/dL 11/15/2017 2:14 PM SPECTROGRAPHER [facility] Specimen Anatomical Collection Method Collection Time Receive d Time (Source) Location / / Volume Laterality Blood specimen 11/14/2017 9:34 AM 018 9:35 (specimen) SPECTROGRAPHER AM SPECTROGRAPHER Annalisa Silva MANAGER OF RADIOLOGY LAB - BLOOD ORDERABLES Performing Organization Address City/[facility]/ZIP Code Phon e Number [facility] [address] [place] [address] Basic metabolic panel (11/14/2017 9:34 AM SPECTROGRAPHER) P athologist Signature Sodium 142 133 - 144 11/15/2017 [facility] mmol/L 2:14 PM [facility] Potassium 4.0 3.4 - 5.3 11/15/2017 [facility] mmol/L 2:14 PM [facility] Chloride 107 94 - 109 11/15/2017 [facility] mmol/L 2:14 PM [facility] Carbon Dioxide 28 20 - 32 11/15/2017 [facility] [facility] mmol/L 2:14 PM [facility] Anion Gap 7 3 - 14 11/15/2017 [facility] mmol/L 2:14 PM [facility] Glucose 80 70 - 99 11/15/2017 [facility] mg/dL 2:14 PM [facility] Comment: Fasting specimen Urea Nitrogen 15 7 - 30 mg/dL 11/15/2017 2:14 PM [facility] Creatinine 0.98 0.66 - 1.25 mg/dL 11/15/2017 2:14 PM CS T [facility] GFR Estimate >90 >60 mL/min/1.7m2 11/15/2017 2:[address] [facility] Comment: Non GFR Calc GFR Estimate If >90 >60 mL/min/1.7m2 11/15/2017 2:14 P M [facility] Black [facility] Comment: GFR Calc Calcium 8.9 8.5 - 10.1 mg/dL 11/15/2017 2:14 PM [facility] Specimen Anatomical Collection Method Collection Time Receive d Time (Source) Location / / Volume Laterality Blood specimen 11/14/2017 9:34 AM 018 9:35 (specimen) SPECTROGRAPHER AM SPECTROGRAPHER Annalisa Silva NP LAB - BLOOD ORDERABLES Performing Organization Address City/State/ZIP Code Phon e Number [facility] [address] [place] [address] documented in this encounter Visit Diagnoses Diagnosis Health care maintenance - Primary Unspecified general medical examination 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 Anxiety state, unspecified Class 1 obesity due to excess calories w ith body mass index (BMI) of 33.0 to 33.9 in adult, unspecified whether serious comor bidity present documented in this encounter Additional Health Concerns Assessment Noted Time PHQ-9 Depression Total Score: 5 09/08/2016 7:22 AM SPECTROGRAPHER documented as of this encounter Care Teams Hub Cutter Apprentice Relationship Specialty Start Date End Date Annalisa Silva, PCP - General Nurse Practitioner - 08/26/15 04/10/19 MANAGER OF RADIOLOGY Adult [facility] [address] [place], [place] [phone] Annalisa Silva, PCP - Assigned PCP 09/12/16 11/18/18 MANAGER OF RADIOLOGY [address] [place], [place] [phone] documented as of this encounter
--- OUTSIDE RECORDS SUMMARY | 2022-09-26 20:25 | XMS_ITS | Encounter Summary ---
:1995 Author Organization [place] Address [facility] [place] [address] Care Team Providers Name Role Phone Annalisa Silva MILK COLLECTOR Primary Care Provider [phone] Reason for Visit Reason Onset Date Comments Results 04/21/2016 Encounter Details Date Type Department Care Team Description 04/21/2016 Telephone [facility] Annalisa Silva NP Results [place] [address] [facility] [address] [place] [address] [place] [address] [phone] Social History Tobacco Use Types Packs/Day Years [...] Telephone Encounter - Lexy Rachel MA - 04/22/2016 3:43 PM CDT Patient advised. Quiana RACHEL CMA Telephone Encounter - Lexy Rachel MA - 04/21/2016 1:40 PM CDT Voice mail left for patient to call back, please relay message. Quiana RACHEL CMA Telephone Encounter - Annalisa Silva NP - 04/21/2016 12:50 PM CDT Please notify pt that recent blood and sputum cultures were negative Annalisa Silva CNP documented in this encounter Plan of Treatment Upcoming Encounters Date Type Specialty Care Team Description 11/04/2022 Office Visit Internal Medicine Marcy Ricketts APRN FLATBED COMPANY DRIVER [address] [place], [place] [address] (Wo rk) documented as of this encounter Visit Diagnoses Not on filedocumented in this encounter Care Teams Regional Account Director Relationship Specialty Start Date End Date Annalisa Silva NP PCP - General Nurse Practitioner - Adult 08/26/15 [address] [place] [address] documented as of this encounter
--- OUTSIDE RECORDS SUMMARY | 2022-09-26 20:25 | XMS_ITS | Encounter Summary ---
:1995 Author Organization [place] Address [address] [facility] [place] [address] Care Team Providers Name Role Phone Annalisa Silva GUNSTOCK SPRAY UNIT ADJUSTER Primary Care Provider [phone] Annalisa Silva GUNSTOCK SPRAY UNIT ADJUSTER Unavailable Reason for Visit Reason Comments Urgent Care Trauma Dropped 60lb weights on L th umb, painful, swollen, painful to move Encounter Details Date Type Department Care Team Description 03/13/2017 Office Visit [facility] Karen Nassar Injury of left thumb, Urgent Care Lindsay Jones DO initial encounter [address] (Primary Dx) [facility] [address] [place], [place] [phone] [address] Social History Tobacco Use Types Packs/Day Years [...] or more drinks on one occasion? We andiely 11/15/2018 Sex Assigned at Date Recorded Male 07/12/2020 3:49 AM CDT documented as of this encounter Last Filed Vital Signs Vital Sign Reading Time Taken Comments Blood Pressure 122/70 03/13/2017 9:34 AM CDT Pulse 43 03/13/2017 9:34 AM CDT Temperature 36.2 ??C (97.1 ??F) 03/13/2017 9:34 AM CDT Respiratory Rate - - Oxygen Saturation 98% 03/13/2017 9:34 AM CDT Inhaled Oxygen Concentration - - Weight - - Height - - Body Mass Index - - documented in this encounter Patient Instructions Patient InstructionsKaren Nassar DO - 03/13/2017 9:30 AM CDT Wear the brace until you follow up with orthopedics in the next 2-3 days. You can take it off to shower. Call [facility] orthopedics today or Tuesday to set up your appointment. Ice, aleve or ibuprofen (take these medications with food). Bring the copy of your xrays to your orthopedic appointment. documented in this encounter Progress Notes Karen Nassar DO - 03/13/2017 9:30 AM CDT SUBJECTIVE: Seamus Barnes is a 22 year old male who presents for injury: Location: left thumb Right hand dominant. Occured how long ago?: yesterday Happened while: at the gym How?: Dropped a 60 lb weight straight down on the tip of his erect thumb. Pain felt from tip of thumb down into wrist instantly. Pain severity currently: painful at the base of the thumb today Current associated symptoms: Swelling and Tenderness Therapies to improve symptoms include: ice and Tylenol No numbness. ROS: 5-Point Review of Systems Negative-- Except as stated above. EXAM: BP 122/70 (BP Location: Right arm, Patient Position: Chair, Cuff Size: Adult Large) Pulse (!) 43 Temp 97.1 ??F (36.2 ??C) (Oral) SpO2 98% General: healthy, alert and no distress Involved injury area: left thumb Description of injury site {EXAM INJURY: mild generalized swelling of the entire thumb, Point tenderness over the base of the thumb and snuff box region and pain with movement of the thumb felt in the base of the thumb. Skin: minor abrasion over the IP joint, no bleeding Neurovascular status: There is not compromise to the distal circulation. Range of motion of the affected area: Range of Motion is limited - unable to oppose thumb normally, cannot extend thumb out fully X-RAY was done. Thumb: No obvious fractures noted. Views of snuffbox: no fractures noted. Official read by radiology pending. The clinic will call patient if result different than discussed during visit today. ASSESSMENT/PLAN: ICD-10-CM 1. Injury of left thumb, initial encounter S69.92XA XR Finger Left G/E 2 Views XR Wrist Left 1 View thumb spica splint, copy of discs. Soft tissue injury vs snuffbox injury. F/u with ortho, already has doc at [facility] ortho. Patient Instructions Wear the brace until you follow up with orthopedics in the next 2-3 days. You can take it off to shower. Call [facility] orthopedics today or Tuesday to set up your appointment. Ice, aleve or ibuprofen (take these medications with food). Bring the copy of your xrays to your orthopedic appointment. documented in this encounter Nursing Notes Kassidy Santiago CMA - 03/13/2017 9:30 AM CDT Images from the original note were not included. Chief Complaint Patient presents with ??? Urgent Care ??? Trauma Dropped 60lb weights on L thumb, painful, swollen, painful to move Initial BP 122/70 (BP Location: Right arm, Patient Position: Chair, Cuff Size: Adult Large) Pulse (!) 43 Temp 97.1 ??F (36.2 ??C) (Oral) SpO2 98% Estimated body mass index is 36.63 kg/(m^2) as calculated from the following: Height as of 09/07/16: 6' 2 (1.88 m). Weight as of 09/07/16: 285 lb 4.8 oz (129.4 kg). Medication Reconciliation: complete Kassidy Santiago CMA (AACHRIS) documented in this encounter Plan of Treatment Upcoming Encounters Date Type Specialty Care Team Description 11/04/2022 Office Visit Internal Medicine Marcy Ricketts APRN CUSTOMER SERVICE AND SALES CONSULTANT [address] [place], [place] [address] (Wo rk) documented as of this encounter Results XR Wrist Left 1 View (03/13/2017 10:04 AM CDT) Anatomical Region Laterality Modality Left Wrist Left Computed Radiography Specimen (Source) Anatomical Location Collection Method / Collectio n Time Received Time / Laterality Volume Impressions 03/13/2017 11:49 AM CDT IMPRESSION: Unremarkable exam. YA MADRID MD Narrative 03/13/2017 11:49 AM CDT XR WRIST LT 1 VW, XR FINGER LT G/E 2 VW ?? 03/13/2017 10:04 AM HISTORY: ??Unspecified injury of left wr ist, hand and finger(s), initial encounter. Thumb injury Procedure Note Ya Madrid MD - 03/13/2017Formatting o f this note might be different from the original. XR WRIST LT 1 VW, XR FINGER LT G/E 2 VW 03/13/2017 10:04 AM HISTORY: Unspecified injury of left wris t, hand and finger(s), initial encounter. Thumb injury IMPRESSION: Unremarkable exam. YA MADRID MD Karen Nassar DO IMG DIAGNOSTIC IMAGING ORDER CARLEE XR Finger Left G/E 2 Views (03/13/2017 9:57 AM CDT) Anatomical Region Laterality Modality Left Hand Left Computed Radiography Specimen (Source) Anatomical Location Collection Method / Collectio n Time Received Time / Laterality Volume Impressions 03/13/2017 11:49 AM CDT IMPRESSION: Unremarkable exam. YA MADRID MD Narrative 03/13/2017 11:49 AM CDT XR WRIST LT 1 VW, XR FINGER LT G/E 2 VW ?? 03/13/2017 10:04 AM HISTORY: ??Unspecified injury of left wr ist, hand and finger(s), initial encounter. Thumb injury Procedure Note Ya Madrid MD - 03/13/2017Formatting o f this note might be different from the original. XR WRIST LT 1 VW, XR FINGER LT G/E 2 VW 03/13/2017 10:04 AM HISTORY: Unspecified injury of left wris t, hand and finger(s), initial encounter. Thumb injury IMPRESSION: Unremarkable exam. YA MADRID MD Karen Nassar DO IMSreedhar DIAGNOSTIC IMAGING ORDER CARLEE documented in this encounter Visit Diagnoses Diagnosis Injury of left thumb, initial encounter - Primary Injury of left thumb, initial encounter Injury of left thumb, initial encounter documented in this encounter Additional Health Concerns Assessment Noted Time PHQ-9 Depression Total Score: 5 09/08/2016 7:22 AM HEAD MIXER documented as of this encounter Care Teams Environmental Lawyer Relationship Specialty Start Date End Date Annalisa Silva, PCP - General Nurse Practitioner - 08/26/15 04/10/19 GUNSTOCK SPRAY UNIT ADJUSTER [facility] [address] [place], [place] [address] Annalisa Silva, PCP - Assigned PCP 09/12/16 11/18/18 GUNSTOCK SPRAY UNIT ADJUSTER [address] [place] [address] documented as of this encounter
--- OUTSIDE RECORDS SUMMARY | 2022-09-26 20:25 | XMS_ITS | Encounter Summary ---
:1995 Author Organization [place] Address [address] [facility] [place] [address] Care Team Providers Name Role Phone Annalisa Silva PRODUCT DEVELOPMENT ACTUARY Primary Care Provider [phone] Reason for Visit Reason Comments Hospital F/U [facility] hospital on 04/10/16 -pn eumonia Encounter Details Date Type Department Care Team Description 04/22/2016 Office Visit [facility] Annalisa Silva Pneumoni a of [facility] Meghan Yousif NP lung due to [address] [place] infectious organism, [place], [place] [address] lung (Primary Dx) [address] [phone] Social History Tobacco Use Types Packs/Day Years [...] Sign Reading Time Taken Comments Blood Pressure 104/76 04/22/2016 2:04 PM CDT Pulse 70 04/22/2016 2:04 PM CDT Temperature 36.8 ??C (98.2 ??F) 04/22/2016 2:04 PM CDT Respiratory Rate 16 04/22/2016 2:04 PM CDT Oxygen Saturation 97% 04/22/2016 2:04 PM CDT Inhaled Oxygen Concentration - - Weight 128.7 kg (283 lb 11.2 oz) 04/22/2016 2:04 PM CDT Height 190.5 cm (6' 3) 04/22/2016 2:04 PM CDT Body Mass Index 35.46 04/22/2016 2:04 PM CDT documented in this encounter Patient Instructions Patient InstructionsAnnalisa Silva NP - 04/22/2016 2:16 PM CDT Finish antibiotic Follow up CXR in 1 month Annalisa Silva CNP documented in this encounter Progress Notes Annalisa Silva NP - 04/22/2016 2:07 PM CDT SUBJECTIVE: Seamus Barnes is a 21 year old male who presents to clinic today for the following health issues: Hospital Follow-up Visit: Hospital/Shelter/IP Rehab Facility: [facility] Date of Admission: 04/10/16 Date of Discharge: 04/13/16 Reason(s) for Admission: pneumonia Problems taking medications regularly: None Medication changes since discharge: None Problems adhering to non-medication therapy: None Summary of hospitalization: [facility] discharge summary reviewed Diagnostic Tests/Treatments reviewed. Follow up needed: CXR in 4-6 weeks Other Healthcare Providers Involved in Patient???s Care: None Update since discharge: improved. Post Discharge Medication Reconciliation: discharge medications reconciled, continue medications without change. Plan of care communicated with patient Coding guidelines for this visit: Type of Medical Decision Making [id number] Visit within 7 Days of discharge Bdiy-ou-Qsfk Visit within 14 days of discharge Moderate Complexity [id number] High Complexity 97453 [id number] Patient Active Problem List Diagnosis ??? Obesity ??? Pneumonia History reviewed. No pertinent past surgical history. History Substance Use Topics ??? Smoking status: Passive Smoke Exposure - Never Smoker ??? Smokeless tobacco: Never Used Comment: dad smokes outside ??? Alcohol Use: Yes Comment: occasional Family History Problem Relation Age of Onset ??? Family History Negative Mother ??? Family History Negative Father Current Outpatient Prescriptions Medication Sig Dispense Refill ??? Metoclopramide HCl (REGLAN PO) Take 5 mg by mouth BP Readings from Last 3 Encounters: 04/22/16 104/76 04/14/16 134/67 04/11/16 110/70 Wt Readings from Last 3 Encounters: 04/22/16 283 lb 11.2 oz (128.685 kg) 04/11/16 297 lb 4.8 oz (134.854 kg) 04/11/16 290 lb (131.543 kg) ROS: C: NEGATIVE for fever, chills, change in weight E/M: NEGATIVE for ear, mouth and throat problems R: NEGATIVE for significant cough or SOB CV: NEGATIVE for chest pain, palpitations or peripheral edema GI: NEGATIVE for nausea, abdominal pain, heartburn, or change in bowel habits ROS otherwise negative OBJECTIVE: BP 104/76 mmHg Pulse 70 Temp(Src) 98.2 ??F (36.8 ??C) (Oral) Resp 16 Ht 6' 3 (1.905 m) Wt283 lb 11.2 oz (128.685 kg) BMI 35.46 kg/m2 SpO2 97% Body mass index is 35.46 kg/(m^2). GENERAL: healthy, alert and no distress HENT: ear canals and TM's normal, nose and mouth without ulcers or lesions NECK: no adenopathy, no asymmetry, masses, or scars and thyroid normal to palpation RESP: lungs clear to auscultation - no rales, rhonchi or wheezes CV: regular rate and rhythm, normal S1 S2, no S3 or S4, no murmur, click or rub, no peripheral edemaand peripheral pulses strong ABDOMEN: soft, nontender, no hepatosplenomegaly, no masses and bowel sounds normal ASSESSMENT/PLAN: ICD-10-CM 1. Pneumonia of right lung due to infectious organism, unspecified part of lung J18.9 Patient Instructions Finish antibiotic Follow up CXR in 1 month Annalisa Silva NP [facility] documented in this encounter Nursing Notes Lexy Henry MA - 04/22/2016 2:07 PM CDT Chief Complaint Patient presents with ??? Hospital F/U [facility] on 04/10/16 -pneumonia Initial BP 104/76 mmHg Pulse 70 Temp(Src) 98.2 ??F (36.8 ??C) (Oral) Resp 16 Ht 6' 3 (1.905m) Wt 283 lb 11.2 oz (128.685 kg) BMI 35.46 kg/m2 SpO2 97% Estimated body mass index is 35.46 kg/(m^2) as calculated from the following: Height as of this encounter: 6' 3 (1.905 m). Weight as of this encounter: 283 lb 11.2 oz (128.685 kg). BP completed using cuff size: large documented in this encounter Plan of Treatment Upcoming Encounters Date Type Specialty Care Team Description 11/04/2022 Office Visit Internal Medicine Marcy Ricketts APRN STUDIO DESIGNER [address] [place], [place] [address] (Wo rk) documented as of this encounter Visit Diagnoses Diagnosis Pneumonia of right lung due to infectiou s organism, unspecified part of lung - Primary documented in this encounter Care Teams Head Refrigeration Engineer Relationship Specialty Start Date End Date Annalisa Silva NP PCP - General Nurse Practitioner - Adult 08/26/15 [address] [place] [address] documented as of this encounter
--- OUTSIDE RECORDS SUMMARY | 2022-09-26 20:25 | XMS_ITS | Encounter Summary ---
:1995 Author Organization [place] Address [address] [facility] [place] [address] Care Team Providers Name Role Phone Annalisa Silva NP Primary Care Provider [phone] Annalisa Silva SPORTS BOOK BOARD ATTENDANT Unavailable Reason for Visit Reason Onset Date Comments X-ray Results 03/13/2017 disk made for lynn hopkins Encounter Details Date Type Department Care Team Description 03/13/[address] [facility] Annalisa Silva X-ray Re haydee (disk Clinic Gustinenazia Yousif NP made for patient) [address] [address] [phone] Social History Tobacco Use Types Packs/Day Years [...] this encounter Miscellaneous Notes Telephone Encounter - Glenna Hackett - 03/13/2017 10:21 AM CDT Disk was made for patient including finger and wrist x-ray per [facility] care provider Latoya Nassar 03/13/2017. documented in this encounter Plan of Treatment Upcoming Encounters Date Type Specialty Care Team Description 11/04/2022 Office Visit Internal Medicine Marcy Ricketts APRN RANGE CONSERVATIONIST [address] [place], [place] [address] (Wo rk) documented as of this encounter Visit Diagnoses Not on filedocumented in this encounter Additional Health Concerns Assessment Noted Time PHQ-9 Depression Total Score: 5 09/08/2016 7:22 AM MACHINE SPECIALIST documented as of this encounter Care Teams Cia Agent Relationship Specialty Start Date End Date Annalisa Silva, PCP - General Nurse Practitioner - 08/26/15 04/10/19 SPORTS BOOK BOARD ATTENDANT Adult [facility] [address] [place], [place] [address] Annalisa Silva, PCP - Assigned PCP 09/12/16 11/18/18 SPORTS BOOK BOARD ATTENDANT [address] [place], [place] [address] documented as of this encounter
--- OUTSIDE RECORDS SUMMARY | 2022-09-26 20:25 | XMS_ITS | Encounter Summary ---
:1995 Author Organization [place] Address Pending [facility] to [facility] [place] [address] Care Team Providers Name Role Phone Ricardo Annalisa Yousif INVOICING SPECIALIST Primary Care Provider [phone] Encounter Details Date Type Department Care Team Description 04/21/2016 Documentation Only [facility] REPORTING Andrew Esposito, [address] [place] [address] [address] [phone] [place] [address] Social History Tobacco Use Types Packs/Day [...] Office Visit Internal Medicine Marcy Ricketts APRN LASER BEAM CUTTER [address] [place], [place] [address] (Wo rk) documented as of this encounter Visit Diagnoses Not on filedocumented in this encounter Care Teams Service Order Dispatcher Relationship Specialty Start Date End Date Annalisa Silva NP PCP - General Nurse Practitioner - Adult 08/26/15 [address] [place] [address] documented as of this encounter
--- OUTSIDE RECORDS SUMMARY | 2022-09-26 20:25 | XMS_ITS | Encounter Summary ---
:1995 Author Organization [place] Address [address] [facility] [place] [address] Care Team Providers Name Role Phone Annalisa Silva ACCOUNTS PAYABLE MANAGER Primary Care Provider [phone] Reason for Visit (Routine) - Closed Specialty Diagnoses / Procedures Referred By Contact Refer red To Contact Radiology / Radiology. Diagnoses sb: Epic. Rh Xray Rscc Procedures XR CHEST 2 VIEWS [address] [place] [address] Phone: Fax: Referral ID Status Reason Start Date Expiration Date Visits Requ ested Visits Authorized [id number] Closed 05/18/2016 05/18/2017 1 1 Encounter Details Date Type Department Care Team Description 05/20/2016 Hospital Encounter [facility] Annalisa Silva eumonia of right [facility] [place] [address] [place] [address] infectious organism, [address] unspecified [place], [place] lung [address] [phone] Social History Tobacco Use Types Packs/Day Years [...] AM CDT documented as of this encounter Medications at Time of Discharge Medication Sig Dispensed Refills Start Date End Date Metoclopramide HCl (REGLAN Take 5 mg by mouth 0 09/07/2016 PO) documented as of this encounter Plan of Treatment Upcoming Encounters Date Type Specialty Care Team Description 11/04/2022 Office Visit Internal Medicine Marcy Ricketts APRN METEOROLOGY PROFESSOR [address] [place], [place] [address] (Wo rk) documented as of this encounter Procedures Procedure Name Priority Date/Time Associated Diagnosis Comme nts XR CHEST 2 VIEWS Routine 05/20/2016 8:05 AM Pneumonia of right Results for this CDT lung due to procedure are i n infectious organism, the res ults unspecified part of section. lung documented in this encounter Results XR Chest 2 Views (05/20/2016 8:05 AM CDT) Anatomical Region Laterality Modality Chest Computed Radiography Specimen (Source) Anatomical Location Collection Method / Collectio n Time Received Time / Laterality Volume Impressions 05/20/2016 12:53 PM CDT IMPRESSION: Clear lungs. ADAN BEGUM Narrative 05/20/2016 12:53 PM CDT XR CHEST 2 VW 05/20/2016 8:05 AM HISTORY: Pneumonia COMPARISON: 04/13/2016 FINDINGS: Cardiac silhouette and pulmona ry vasculature within normal limits. No focal airspace disease, pleur al effusion or pneumothorax. The previously noted right lower lobe pn eumonia has resolved. Procedure Note Adan Begum MD - 05/20/2016 XR CHEST 2 VW 05/20/2016 8:05 AM HISTORY: Pneumonia COMPARISON: 04/13/2016 FINDINGS: Cardiac silhouette and pulmona ry vasculature within normal limits. No focal airspace disease, pleur al effusion or pneumothorax. The previously noted right lower lobe pn eumonia has resolved. IMPRESSION: Clear lungs. ADAN BEGUM Annalisa Silva NP IMG DIAGNOSTIC IMAGING ORDER CARLEE documented in this encounter Visit Diagnoses Diagnosis Pneumonia of right lung due to infectiou s organism, unspecified part of lung documented in this encounter Care Teams Avian Keeper Relationship Specialty Start Date End Date Annalisa Silva NP PCP - General Nurse Practitioner - Adult 08/26/15 [address] [place] [address] documented as of this encounter
--- OUTSIDE RECORDS SUMMARY | 2022-09-26 20:25 | XMS_ITS | Encounter Summary ---
:1995 Author Organization [place] Address [facility] [place] [address] Care Team Providers Name Role Phone RicardoAnnalisa Benja WOOL GROWER Primary Care Provider [phone] Encounter Details Date Type Department Care Team Description 04/21/2016 Documentation Only ZCLARICEL CL REPORTING Andrew Esposito, [address] [place] [address] [address] [phone] [place] [address] Social History Tobacco Use Types [...] documented as of this encounter Progress Notes Andrew Esposito MD - 04/21/2016 11:26 AM CDT Called patient's mother to update on results. I had spoken to her last week. Left message indicatingall fungal testing was negative. Andrew Esposito MD documented in this encounter Plan of Treatment Upcoming Encounters Date Type Specialty Care Team Description 11/04/2022 Office Visit Internal Medicine Marcy Ricketts APRN WEAPONS SPECIALIST [address] [place], [place] [address] (Wo rk) documented as of this encounter Visit Diagnoses Not on filedocumented in this encounter Care Teams Manual Writer Relationship Specialty Start Date End Date Annalisa Silva NP PCP - General Nurse Practitioner - Adult 08/26/15 [address] [place] [address] documented as of this encounter
--- OUTSIDE RECORDS SUMMARY | 2022-09-26 20:25 | XMS_ITS | Encounter Summary ---
:1995 Author Organization [facility] Address [address] [address] Care Team Providers Name Role Phone Annalisa Silva CHURCH HISTORY PROFESSOR Primary Care Provider [phone] Annalisa Silva CHURCH HISTORY PROFESSOR Unavailable Reason for Visit Reason Comments Nausea, Vomiting, & Diarrhea Auth/Cert Specialty Diagnoses / Procedures Referred By Contact Refer red To Contact Med Surg Diagnoses Vomiting and diarrhea Nausea & vomiting [facility] Observation Dept [address] [place], [place] [address] Phone: Referral ID Status Reason Start Date Expiration Date Visits Requ ested Visits Authorized 03/24/2018 03/24/2019 Encounter Details Date Type Department Care Team Description 03/23/2018 - Emergency [facility] Nurys Lopes MD [facility] [address] [place], [place] [address] Diarrhea, unspecified type (Primary Dx); 03/24/2018 [facility] Andrew Fernandes MD [address] [place] [address] Vomiting and diarrhea Dept [address] [place] [place] [address] Social History Tobacco Use Types [...] Sign Reading Time Taken Comments Blood Pressure 120/42 03/24/2018 10:31 AM CDT Pulse 51 03/24/2018 10:31 AM CDT Temperature 36.4 ??C (97.5 ??F) 03/24/2018 10:31 AM CDT Respiratory Rate 20 03/24/2018 10:31 AM CDT Oxygen Saturation 97% 03/24/2018 10:31 AM CDT Inhaled Oxygen Concentration - - Weight 116.1 kg (256 lb) 03/24/2018 6:27 AM CDT Height 188 cm (6' 2) 03/23/2018 11:47 AM CDT Body Mass Index 32.87 03/23/2018 11:47 AM CDT documented in this encounter Discharge Summaries Nori Neumann PA-C - 03/24/2018 10:04 AM CDT [facility] Outpatient / Observation Unit Discharge Summary Seamus Barnes Date of : 1995 Age: [age] year old Date of Admission: 03/23/2018 Date of Discharge: 03/24/2018 11:16 AM Admitting Physician: Andrew Esposito MD Discharge Physician: Nori Neumann PA-C Discharging Service: Hospitalist Primary Provider: Annalisa Silva Primary Care Physician Primary Discharge Diagnoses: Seamus Barnes was admitted on 03/23/2018 for concerns of nausea, vomiting and diarrhea. Consistent with acute gastroenteritis. 1. Acute Gastroenteritis: suspect viral causes, although enteric panel was negative. Now improved. May trial imodium. Advance diet as tolerated. If symptoms do not resolve, follow up with PCP to consider further work up. Secondary Discharge Diagnoses: Past Medical History: Diagnosis Date ??? Anxiety disorder Code Status: Full Code Brief Hospital Summary: Reason for your hospital stay Nausea, vomiting and diarrhea, likely due to viral gastroenteritis. Enteric panel for common bacterial and viral processes was negative. Nausea and vomiting resolved. Continues to have watery diarrhea but improving. Tolerating oral intake. Please refer to initial admission history and physical for further details. Briefly, Seamus Barnes was admitted on 03/23/2018 for concerns of acute nausea, vomiting and diarrhea. Work up in ED did not show any evidence of bowel obstruction. Pt was registered to the Observation Unit for continued supportive therapy for acute gastroenteritis.. Pt was resuscitated with IV fluids and continued on supportive measures including anti-emetics and pain control as needed. Labs were reviewed and significant results addressed. On the day of discharge, symptoms were resolving and pt was able to tolerate PO intake. Vitals were stable, without evidence of orthostasis. Medications were reviewed and adjustments made as necessary.Pt is instructed to follow up as below. Significant Lab During Hospitalization: Recent Labs Lab 03/23/18 0600 WBC 7.2 HGB 17.0 HCT 49.4 MCV 94 PLT 220 Recent Labs Lab 03/23/18 0600 NA 133 POTASSIUM 3.8 CHLORIDE 101 CO2 25 ANIONGAP 7 GLC 100* BUN 17 CR 1.18 GFRESTIMATED 77 GFRESTBLACK >90 KASH 9.3 PROTTOTAL 8.2 ALBUMIN 4.6 BILITOTAL 0.7 ALKPHOS 110 AST 39 ALT 62 Recent Labs Lab 03/23/18 0600 LIPASE 74 Significant Imaging During Hospitalization: Recent Results (from the past 48 hour(s)) XR Chest 2 Views Narrative XR CHEST 2 VW 03/23/2018 6:48 AM HISTORY: Shortness of breath, cough. COMPARISON: 05/20/2016. FINDINGS: The heart size is normal. The lungs are clear. No pneumothorax or pleural effusion. Impression IMPRESSION: No acute abnormality. KP MOSLEY MD Pending Results: Unresulted Labs Ordered in the Past 30 Days of this Admission No orders found for last 61 day(s). Consultations This Hospital Stay: No consultations were requested during this admission Discharge Instructions and Follow-Up: Follow-up Appointments Follow-up and recommended labs and tests Follow up with primary care provider, Annalisa Silva, within 7 days for hospital follow- up. No follow up labs or test are needed. Advance diet at home as tolerated. May trial Imodium for diarrhea If diarrhea persists, consider further work up. Pt instructed to follow up with PCP in 7 days and with Merchandising Intern if indicated. Follow-up Labs None Discharge Disposition: Discharged to home Discharge Medications: Current Discharge Medication List START taking these medications Details loperamide (IMODIUM) 2 MG capsule Take 1 capsule (2 mg) by mouth 4 times daily as needed for diarrhea Qty: 20 capsule Associated Diagnoses: Diarrhea, unspecified type CONTINUE these medications which have NOT CHANGED Details Multiple Vitamins-Minerals (RALF MULTI MEN PO) Take 1 tablet by mouth daily Colt-3 Fatty Acids (FISH OIL OMEGA-3 PO) Take 1 capsule by mouth daily Allergies: Allergies Allergen Reactions ??? Minocycline Itching and Rash Condition and Physical on Discharge: Discharge condition: Stable Vitals: Blood pressure (!) 110/38, pulse (!) 41, temperature 97.8 ??F (36.6 ??C), temperature sourceOral, resp. rate 16, height 1.88 m (6' 2), weight 116.1 kg (256 lb), SpO2 97 %. 256 lbs 0 oz GENERAL: Comfortable. PSYCH: pleasant, oriented, No acute distress. HEART: RRR LUNGS: Normal Respiratory effort. EXTREMITIES: Able to ambulate independently. SKIN: Dry to touch, No rash, wound or ulcerations. NEUROLOGIC: Grossly intact Nori Neumann PA-C Associated attestation - Sudha Reuda MD - 03/24/2018 4:22 PM CDT Physician Attestation I, Sudha Rueda MD, have reviewed and discussed with the advanced practice provider their discharge plan for Seamus Barnes. I did not participate in a shared visit by interviewing or examining the patient and this should be billed as an advanced practice provider only discharge. Sudha Rueda MD I did not personally see this patient today. documented in this encounter Medications at Time of Discharge Medication Sig Dispensed Refills Start Date End Date Multiple Take 1 tablet by 0 Vitamins-Minerals (RALF mouth daily MULTI MEN PO) Colt-3 Fatty Acids Take 1 capsule by 0 (FISH OIL OMEGA-3 PO) mouth daily loperamide (IMODIUM) 2 Take 1 capsule (2 20 capsule 0 201705/01/2018 MG capsuleIndications: mg) by mouth 4 times Diarrhea, unspecified daily as needed for type diarrhea documented as of this encounter H&P Notes Nori Neumann PA-C - 03/23/2018 1:22 PM CDT [facility] Outpatient / Observation Unit History and Physical Exam Seamus Barnes Date of : 1995 Age: [age] year old Date of Admission: 03/23/2018 Primary care provider: Annalisa Silva Assessment: Seamus Barnes is a 23 year old male with no significant PMH, who presents with acute nausea, vomiting and diarrhea. Work up in the ED reveals: VSS. Labs are unremarkable. CXR clear. Stool sample was collected and sent for enteric panel. Patient will be registered to Observation for further evaluation and symptom management. 1. Acute gastroenteritis - persistent nausea despite ED interventions, although improved. No risk factors for c diff, afebrile and normal WBC. Likely viral etiology Plan: 1. [place] to Observation 2. 3. IV hydration with Normal saline, @, 100 ml/hr 4. Supportive care with anti-emetics, pain meds PRN 5. Advance diet as tolerated 6. Follow Stool cultures 7. DVT prophylaxis: pt at low risk, encourage ambulation. Chief Complaint: Acute nausea, vomiting and diarrhea History of Present Illness: Seamus Barnes is a 23 year old male with no significant PMH, who presents with acute nausea, vomiting and diarrhea. Pt reports 2 days of persistent nausea, vomiting and diarrhea. He has not been able to keep anything down other than small sips of water. He notes a fever early this morning. He denies blood in stool or melena. He denies hematemesis. He also notes generalized abdominal cramping andmild SOB. He denies chest pain or dysuria. He denies recent hospitalization, ill contacts, travel orantibiotic use. Past Medical History: Past Medical History: Diagnosis Date ??? Anxiety disorder Past Surgical History: Past Surgical History: Procedure Laterality Date ??? ORTHOPEDIC SURGERY 07/29/16 rt knee Social History: Social History Social History ??? Marital status: Single Spouse name: N/A ??? Number of children: N/A ??? Years of education: N/A Occupational History ??? Not on file. Social History Main Topics ??? Smoking status: Passive Smoke Exposure - Never Smoker ??? Smokeless tobacco: Never Used Comment: dad smokes outside ??? Alcohol use Yes Comment: occasional ??? Drug use: No ??? Sexual activity: Yes Partners: Female control/ protection: Condom, Pill Comment: saúl april 2013 Other Topics Concern ??? Not on file Social History Narrative Family History: Family History Problem Relation Age of Onset ??? Family History Negative Mother ??? Family History Negative Father ??? Other Cancer Paternal Grandmother ??? DIABETES Maternal Grandmother ??? DIABETES Other Allergies: Allergies Allergen Reactions ??? Minocycline Itching and Rash Medications: Prior to Admission medications Medication Sig Last Dose Taking? Auth Provider Multiple Vitamins-Minerals (RALF MULTI MEN PO) Take 1 tablet by mouth daily Past Week at Unknown time Yes Unknown, Entered By History Colt-3 Fatty Acids (FISH OIL OMEGA-3 PO) Take 1 capsule by mouth daily Past Week at Unknown time Yes Unknown, Entered By History Review of Systems: A Comprehensive greater than 10 system review of systems was carried out. Pertinent positives and negatives are noted above. Otherwise negative for contributory information. Constitutional, neuro, ENT, endocrine, pulmonary, cardiac, gastrointestinal, genitourinary, musculoskeletal, integument and psychiatric systems are negative, except as otherwise noted. Physical Exam: Blood pressure 124/52, pulse 74, temperature 99.1 ??F (37.3 ??C), temperature source Oral, resp. rate 16, height 1.88 m (6' 2), weight 114.7 kg (252 lb 14.4 oz), SpO2 96 %. GENERAL: Comfortable. PSYCH: pleasant, oriented, No acute distress. HEENT: Atraumatic, normocephalic. Normal conjunctiva, normal hearing, and oropharynx is normal. NECK: Supple, no neck vein distention HEART: Normal S1, S2 with no murmur, no pericardial rub, gallops or S3 or S4. LUNGS: Clear to auscultation, normal Respiratory effort. No wheezing, rales or ronchi. GI: Soft, normal bowel sounds. Non-tender, non distended. EXTREMITIES: No pedal edema, +2 pulses bilateral and equal. SKIN: Dry to touch, No rash, wound or ulcerations. NEUROLOGIC: CN 2-12 intact, BL 5/5 symmetric upper and lower extremity strength, sensation is intactwith no focal deficits. Data: Recent Labs Lab 03/23/18 0600 WBC 7.2 HGB 17.0 HCT 49.4 MCV 94 PLT 220 Recent Labs Lab 03/23/18 06 NA 133 POTASSIUM 3.8 CHLORIDE 101 CO2 25 ANIONGAP 7 GLC 100* BUN 17 CR 1.18 GFRESTIMATED 77 GFRESTBLACK >90 KASH 9.3 PROTTOTAL 8.2 ALBUMIN 4.6 BILITOTAL 0.7 ALKPHOS 110 AST 39 ALT 62 Recent Labs Lab 03/23/18 0600 LIPASE 74 Recent Results (from the past 48 hour(s)) XR Chest 2 Views Narrative XR CHEST 2 VW 03/23/2018 6:48 AM HISTORY: Shortness of breath, cough. COMPARISON: 05/20/2016. FINDINGS: The heart size is normal. The lungs are clear. No pneumothorax or pleural effusion. Impression IMPRESSION: No acute abnormality. Nori Neumann PA-C Associated attestation - Andrew Esposito MD - 03/26/2018 1:09 PM CDT Physician Attestation I, Andrew Esposito, [...] today. documented in this encounter ED Notes Celi Ulrich RN - 03/23/2018 8:57 AM CDT [facility] ED Nurse Handoff Report Seamus Barnes is a 23 year old male ED Chief complaint: Nausea, Vomiting, & Diarrhea . ED Diagnosis: Final diagnoses: None Allergies: Allergies Allergen Reactions ??? Minocycline Itching and Rash Code Status: Full Code Activity level - Baseline/Home: Independent. Activity Level - Current: Independent. Lift room needed: No. 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 Infection: Not Applicable. Vital Signs: Vitals: 03/23/18 0719 03/23/18 0815 03/23/18 0830 03/23/18 0845 BP: 107/53 107/56 Pulse: Resp: Temp: TempSrc: SpO2: 97% 97% 95% 98% Weight: Height: Cardiac Rhythm: , Pain level: 0-10 Pain Scale: 5 Patient confused: No. Patient Falls Risk: Yes. Elimination Status: Has voided Patient Report - Initial Complaint: NVD. Focused Assessment: Loose stools, nausea. Tests Performed: Labs, imaging. Abnormal Results: Labs Ordered and Resulted from Time of ED Arrival Up to the Time of Departure from the ED CBC WITH PLATELETS DIFFERENTIAL - Abnormal; Notable for the following: Result Value Absolute Lymphocytes 0.7 (*) All other components within normal limits COMPREHENSIVE METABOLIC PANEL - Abnormal; Notable for the following: Glucose 100 (*) All other components within normal limits LIPASE BILIRUBIN DIRECT PERIPHERAL IV CATHETER ENTERIC BACTERIA AND VIRUS PANEL BY NEFTALI STOOL XR Chest 2 Views Preliminary Result IMPRESSION: No acute abnormality. . Treatments provided: Zofran, toradol, fluids. Family Comments: Mother at bedside. OBS brochure/video discussed/provided to patient: Yes ED Medications: Medications 0.9% sodium chloride BOLUS (0 mLs Intravenous Stopped 03/23/18 0647) ondansetron (ZOFRAN) injection 4 mg (4 mg Intravenous Given 03/23/18 0602) ketorolac (TORADOL) injection 15 mg (15 mg Intravenous Given 03/23/18 0637) ondansetron (ZOFRAN) injection 4 mg (4 mg Intravenous Given 03/23/18 0811) Drips infusing: No For the majority of the shift, the patient's behavior Green. Interventions performed were NA. Severe Sepsis OR Septic Shock Diagnosis Present: No ED Nurse Name/Phone Number: Tobiiris Childers, 8:57 AM RECEIVING UNIT ED HANDOFF REVIEW Above ED Nurse Handoff Report was reviewed: yes Reviewed by: Celi Ulrich on March 23, 2018 at 11:34 AM Monica Madrigal RN - 03/23/2018 5:54 AM CDT Has been having n/v/d since Tuesday Body aches Chills yesterday vomit at least 10 times Can sip on water only Rates pain 03/09 Also having Campy abd pain Has had low grad fever 100.8 Here for eval T Nurys Lopes MD - 03/23/2018 5:51 AM CDT History Chief Complaint: Nausea, vomiting, and diarrhea HPI Seamus Barnes is a 23 year old male who presents with his mother to the ED for evaluation of nausea, vomiting, and diarrhea. The patient reports an onset of nausea 2 mornings ago at around 0300, which woke him up from sleep. He was able to go back to bed but then awoke around 0730 with vomiting and diarrhea. He reports vomiting and having diarrhea throughout the day, noting it to be too many times to count. He denies any blood in his stool or vomit. He took ibuprofen last at 2200 last night and also notes this to be the last episode of diarrhea as well. This morning, he woke up around 0300 feeling nauseous and had another episode of vomiting. He took his temperature at this time which was 10 0.8. Throughout the course of his illness, he also notes generalized abdominal pain/cramping, chills, generalized body/muscles aches, urine decrease, and dizziness with exertion. Here in the ED he reports very mild abdominal pain. Patient denies any recent ill-contact, travel outside the country, or antibiotic use. Patient also notes having a mild cough and post nasal drip for a while now and is concerned about possible pneumonia as he notes feeling short of breath as well. Patient was hospitalized in March 2016 for pneumonia. 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 Allergies: Minocycline Medications: The patient is not currently taking any prescribed medications. Past Medical History: Anxiety Obesity Past Surgical History: Orthopedic surgery - right knee Family History: History reviewed. No pertinent family history. Social History: Smoking status: Passive smoke exposure Alcohol use: Occasionally Marital Status: Single Review of Systems Constitutional: Positive for appetite change, chills, fatigue and fever. HENT: Positive for congestion and postnasal drip. Negative for rhinorrhea and sore throat. Respiratory: Positive for cough and shortness of breath. Cardiovascular: Negative for chest pain and leg swelling. Gastrointestinal: Positive for abdominal pain, diarrhea, nausea and vomiting. Negative for blood in stool. Genitourinary: Negative. Musculoskeletal: Positive for myalgias (generalized aches). Neurological: Positive for dizziness. Negative for numbness. All other systems reviewed and are negative. Physical Exam Patient Vitals for the past 24 hrs: BP Temp Temp src Pulse Resp SpO2 Height Weight 03/23/18 0845 107/56 - - - - 98 % - - 03/23/18 0830 107/53 - - - - 95 % - - 03/23/18 0815 - - - - - 97 % - - 03/23/18 0719 - - - - - 97 % - - 03/23/18 0718 119/61 - - - - - - - 03/23/18 0630 116/67 - - - - 99 % - - 03/23/18 0615 121/68 - - - - 99 % - - 03/23/18 0600 113/59 - - - - 99 % - - 03/23/18 0556 119/81 98.9 ??F (37.2 ??C) Oral 76 16 98 % 1.88 m (6' 2) 111.1 kg (245 lb) Physical Exam Gen: Pleasant, appears stated age. Slightly ill appearing, generally weak. Eye: Pupils are equal, round, and reactive. Sclera non-injected. ENT: Moist mucus membranes. Normal tongue. Oropharynx without lesions. Cardiac: Normal rate and regular rhythm. No murmurs, gallops, or rubs. Pulmonary: Clear to auscultation bilaterally. No wheezes, rales, or rhonchi. Abdomen: Normal active bowel sounds. Abdomen is soft and non-distended, without focal tenderness. Musculoskeletal: Normal movement of all extremities without evidence for deficit. Extremities: No edema. Skin: Warm and dry. Neurologic: Non-focal exam without asymmetric weakness or numbness. Normal tone Psychiatric: Normal affect with appropriate interaction with examiner. Emergency Department Course Imaging: Radiographic findings were communicated with the patient and family who voiced understanding of the findings. X-ray Chest, 2 views: IMPRESSION: No acute abnormality. Result per radiology. Laboratory: CBC: WNL (WBC 7.2, HGB 17.0, PLT 220) CMP: Glucose 100 (H) o/w WNL (Creatinine 1.18) Lipase: 74 Bilirubin direct: 0.2 Enteric bacteria and virus panel by NEFTALI stool: Pending Interventions: 0602: NS 1L IV Bolus 0602: Zofran 4mg IV injection 0637: Toradol 15mg IM injection 0811: Zofran 4mg IV injection 0936: Sodium chloride 0.9% IV infusion 0955: Reglan 5mg IV injection Emergency Department Course: Past medical records, nursing notes, and vitals reviewed. 0623: I performed an exam of the patient and obtained history, as documented above. GCS 15. IV inserted and blood drawn. The patient was sent for a x-ray while in the emergency department, findings above. 0720: I rechecked the patient. Explained findings to patient and mother. Patient is feeling hot at this time. 0808: I rechecked the patient. Explained findings to patient and mother. Patient is still feeling very nauseous and has not passed his PO challenge yet. 0853: I rechecked the patient. Patient failed PO challenge. Still feeling very nauseated, dizzy whenambulating, generally weak. Findings and plan explained to the Patient and mother who consents to admission. 0938: Discussed the patient with Nori Neumann PA-C, who will admit the patient to an observationbed for further monitoring, evaluation, and treatment. Impression & Plan Medical Decision Making: Seamus Barnes is a 23 year old male with a history of severe pneumonia in 2016 presenting with 2 days of vomiting, diarrhea, as well as some persisting shortness of breath and mild cough. On exam,the patient appears slightly ill, although overall healthy. He has a benign abdominal exam. Given his history of fever as well as severe symptoms, stool culture was sent. At this point, I do not suspect C. Diff. given lack of risk factors and exposures. He has been fluid resuscitated and is feeling slightly better, although continues to have difficulty tolerating oral fluids. Electrolytes are within normal limits, although sodium is noted to be slightly low. He will be admitted for continued symptoms control. At this point, I do not think additional imaging is indicated. I do not suspect legionelladespite the pulmonary symptoms. Chest radiograph is negative, and pulmonary symptoms seem to be a mild component. He has clear lungs bilaterally. Diagnosis: ICD-10-CM 1. Vomiting and diarrhea R11.10 R19.7 Disposition: Admitted to Nori Neumann PA-C. Nerissa Jara 03/23/2018 [facility] EM[facility] I, Nerissa Jara, am serving as a scribe at 6:23 AM on 03/23/2018 to document services personally performed by Nurys Lopes MD based on my observations and the provider's statements to me. Nurys Lopes MD 03/23/18 1305 documented in this encounter Miscellaneous Notes Plan of Delil[place] - Joanna Calero RN - 03/24/2018 11:14 AM CDT Problem: Patient Care Overview Goal: Plan of Care/Patient Progress Review Outcome: Adequate for Discharge Date Met: 03/24/18 Patient's After Visit Summary was reviewed with patient and/or father. Patient verbalized understanding of After Visit Summary, recommended follow up and was given an opportunity to ask questions. Discharge medications sent home with patient/family: No Discharged with father OBSERVATION patient END time: 1113 Plan of Care - Joanna Calero RN - 03/24/2018 8:00 AM CDT Problem: Patient Care Overview Goal: Plan of Care/Patient Progress Review Outcome: Improving PRIMARY DIAGNOSIS: GASTROENTERITIS OUTPATIENT/OBSERVATION GOALS TO BE MET BEFORE DISCHARGE 1. Orthostatic performed: No 2. Tolerating PO fluid and/or antibiotics (if applicable): Tolerating PO fluid 3. Nausea/Vomiting/Diarrhea symptoms improved: No, approximately 3 loose stools on overnights. None yet this shift. 4. Pain status: Pain free. 5. 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 Please review provider order for any additional goals. Nurse to notify provider when observation goals have been met and patient is ready for discharge. AOx4. Up ad marsha. Approximately 3 loose stools overnight, none yet this shift. Denies nausea or vomiting. Fluids running at 100/hr. BP diastolic soft 110/38, provider notified. Diet advanced to full liquid, tolerating. Will advance to regular diet. BS active x4. Plan is to see if pt. tolerating regulardiet, if so, probable discharge later today. Will continue to monitor and provide supportive cares. Plan of Care - Carolyn Pradhan RN - 03/24/2018 4:28 AM CDT Problem: Patient Care Overview Goal: Plan of Care/Patient Progress Review Outcome: Improving PRIMARY DIAGNOSIS:??GASTROENTERITIS ? OUTPATIENT/OBSERVATION GOALS TO BE MET BEFORE DISCHARGE 1. Orthostatic performed:??N/A ? 2. Tolerating PO fluid and/or antibiotics (if applicable): Yes- No antibiotics ordered, tolerating PO ? 3. Nausea/Vomiting/Diarrhea symptoms improved: No, continues to have multiple loose, watery stools ? 4. Pain status: Pt c/o VILLALBA this evening, improved w/ Tylenol ? 5. Return to near baseline physical activity: Yes ? 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 Safe discharge environment identified: Yes Barriers to discharge: Yes ? Please review provider order for any additional goals. Nurse to notify provider when observation goals have been met and patient is ready for discharge. ? A&O x4. VSS. Pt c/o VILLALBA rated 4/10, improved w/Tylenol. BS audible/hyperactive x4, denies N/V, tolerating PO, patient checked for enteric- neg. Enteric iso removed. NS running at 100. Resting comfortably between cares. Will continue to monitor. ? Plan of Care - Carolyn Pradhan RN - 03/24/2018 12:11 AM CDT Problem: Patient Care Overview Goal: Plan of Care/Patient Progress Review Outcome: Improving PRIMARY DIAGNOSIS:??GASTROENTERITIS ? OUTPATIENT/OBSERVATION GOALS TO BE MET BEFORE DISCHARGE 1. Orthostatic performed:??N/A ? 2. Tolerating PO fluid and/or antibiotics (if applicable): Yes- No antibiotics ordered, tolerating PO ? 3. Nausea/Vomiting/Diarrhea symptoms improved: No, continues to have multiple loose, watery stools ? 4. Pain status: Pt c/o VILLALBA this evening, improved w/ Tylenol ? 5. Return to near baseline physical activity: Yes ? 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 Safe discharge environment identified: Yes Barriers to discharge: Yes ?? Please review provider order for any additional goals. Nurse to notify provider when observation goals have been met and patient is ready for discharge. ? A&O x4. VSS. Pt c/o VILLALBA rated 4/10, improved w/Tylenol. BS audible/hyperactive x4, denies N/V, tolerating PO, patient checked for enteric- neg. Enteric iso removed. NS running at 100. Resting comfortably between cares. Will continue to monitor. ? Plan of Care - Carolyn Pradhan RN - 03/23/2018 9:00 PM CDT Problem: Patient Care Overview Goal: Plan of Care/Patient Progress Review Outcome: Improving PRIMARY DIAGNOSIS: GASTROENTERITIS ?? OUTPATIENT/OBSERVATION GOALS TO BE MET BEFORE DISCHARGE 1. Orthostatic performed: N/A ?? 2. Tolerating PO fluid and/or antibiotics (if applicable): Yes- No antibiotics ordered, tolerating PO ?? 3. Nausea/Vomiting/Diarrhea symptoms improved: No, continues to have multiple loose, watery stools ?? 4. Pain status: Pt c/o VILLALBA this evening, improved w/ Tylenol ?? 5. Return to near baseline physical activity: Yes ?? 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 Nurse to notify provider when observation goals have been met and patient is ready for discharge. ?? A&O x4. VSS. Pt c/o VILLALBA rated 4/10, improved w/Tylenol. BS audible/hyperactive x4, denies N/V, tolerating PO, patient checked for enteric- neg. Enteric iso removed. NS running at 100. Resting comfortably between cares. Will continue to monitor. ?? Plan of Care - Celi Ulrich RN - 03/23/2018 4:18 PM CDT Problem: Patient Care Overview Goal: Plan of Care/Patient Progress Review PRIMARY DIAGNOSIS: GASTROENTERITIS OUTPATIENT/OBSERVATION GOALS TO BE MET BEFORE DISCHARGE 1. Orthostatic performed: N/A 2. Tolerating PO fluid and/or antibiotics (if applicable): Yes- No antibiotics ordered. On clears- ate 100% of chicken broth 3. Nausea/Vomiting/Diarrhea symptoms improved: No, 1 stool since admission to our floor. No blood instools 4. Pain status: Pain free. 5. 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 Nurse to notify provider when observation goals have been met and patient is ready for discharge. Denies pain and nausea after meds in ed. Reglan last given at 10 am. Zofran before that. Toradol at 0630. NS running at 100. Patient checked for enteric- neg. Enteric iso removed. 1 stool since admission to floor. 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 Patient has been oriented to the observation room, bathroom and call light is in place. Discussed discharge goals and expectations with patient/family. Pharmacy-Admission Medication History - Sharonda Beth [facility] - 03/23/2018 10:05 AM CDT Admission medication history interview status for this patient is complete. See [facility] admission navigator for allergy information, prior to admission medications and immunization status. Medication history interview source(s):Patient and Family Medication history resources (including written lists, pill bottles, clinic record):None Primary pharmacy: Changes made to COMMUNITY EDUCATOR medication list: Added: all meds Deleted: Changed: Actions taken by pharmacist (provider contacted, etc):None Additional medication history information:None Medication reconciliation/reorder completed by provider prior to medication history? No Do you take OTC medications (eg tylenol, ibuprofen, fish oil, eye/ear drops, etc)? Y(Y/N) For patients on insulin therapy: NA (Y/N) Prior to Admission medications Medication Sig Last Dose Taking? 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 XR CHEST 2 VIEWS STAT 03/23/2018 6:48 AM Resul ts for this CDT procedure are i n the results section. CBC WITH PLATELETS & STAT 03/23/2018 6:00 AM R esults for this DIFFERENTIAL CDT procedure are i n the results section. LIPASE STAT 03/23/2018 6:00 AM Results f or this CDT procedure are i n the results section. COMPREHENSIVE STAT 03/23/2018 6:00 AM Results for this METABOLIC PANEL CDT procedure ar e in the results section. BILIRUBIN DIRECT STAT 03/23/2018 6:00 AM Resul ts for this CDT procedure are i n the results section. documented in this encounter Results Enteric Bacteria and Virus Panel by NEFTALI Stool (03/23/2018 7:40 AM CDT) FreakOut Method Time Signature Campylobacter Not Detected NDET^Not 03/23/2018 [facility] group by NEFTALI Detected 1:[address] [facility] Salmonella Not Detected NDET^Not 03/23/2018 [facility] species by NEFTALI Detected 1:[address] [facility] Shigella species Not Detected NDET^Not 03/23/2018 [facility] Y by NEFTALI Detected 1:[address] [facility] Vibrio group by Not Detected NDET^Not 03/23/2018 [facility] NEFTALI Detected 1:[address] [facility] Rotavirus A by Not Detected NDET^Not 03/23/2018 [facility] NEFTALI Detected 1:[address] [facility] Shiga toxin 1 Not Detected NDET^Not 03/23/2018 [facility] gene by NEFTALI Detected 1:[address] [facility] Shiga toxin 2 Not Detected NDET^Not 03/23/2018 [facility] gene by NEFTALI Detected 1:[address] [facility] Norovirus I and Not Detected NDET^Not 03/23/2018 [facility] II by NEFTALI Detected 1:[address] [facility] Yersinia Not Detected NDET^Not 03/23/2018 [facility] enterocolitica by Detected 1:10 PM OF [place] NEFTALI [facility] Enteric pathogen Testing performed by multipl exed, qualitative PCR using the Nanosphere Verigene Enteric 03/23/2018 [place] comment Pathogens Nucleic Acid Test. Results should not be used as the sole basis for diagnosis, 1:10 PM OF [place] treatment, or other patient management decisions. [facility] Comment: Positive results do not rule out co-infe ction with other organisms that are not detected by this test, and may not b e the sole or definitive cause of patient illness. Negative results in the setting of clini kash illness compatible with gastroenteritis may be due to infection by pathogens that are not detected by this test or non-infectious causes such as ulcerative colitis, irritable bowel syndrome, or Crohn's disease. Note: Shiga toxin producing E. coli (LOLA C) typically harbor one or both genes that encode for Shiga toxins 1 and 2. Specimen Anatomical Collection Method Collection Time Receive d Time (Source) Location / / Volume Laterality Stool specimen 03/23/2018 7:40 AM 018 7:45 (specimen) CDT AM CDT Nurys Lopes MD LAB - MICRO GENERAL ORDERABL ES Performing Organization Address City/State/ZIP Code Phon e Number [facility] [address] [place] [address] [place] XR Chest 2 Views (03/23/2018 6:48 AM CDT) Anatomical Region Laterality Modality Chest Digital Radiography Specimen (Source) Anatomical Location Collection Method / Collectio n Time Received Time / Laterality Volume Impressions 03/23/2018 11:24 PM CDT IMPRESSION: No acute abnormality. KP MOSLEY MD Narrative 03/23/2018 11:24 PM CDT XR CHEST 2 VW ??03/23/2018 6:48 AM HISTORY: Shortness of breath, cough. COMPARISON: 05/20/2016. FINDINGS: The heart size is normal. The lungs are clear. No pneumothorax or pleural effusion. Procedure Note Kp Mosley MD - 03/23/2018Form atting of this note might be different from the original. XR CHEST 2 VW 03/23/2018 6:48 AM HISTORY: Shortness of breath, cough. COMPARISON: 05/20/2016. FINDINGS: The heart size is normal. The lungs are clear. No pneumothorax or pleural effusion. IMPRESSION: No acute abnormality. KP MOSLEY MD Nurys Lopes MD IMG DIAGNOSTIC IMAGING ORDER CARLEE Bilirubin direct (03/23/2018 6:00 AM CDT) P athologist Signature Bilirubin 0.2 0.0 - 0.2 03/23/2018 [facility] Direct mg/dL 7:27 AM CDT [facility] Specimen Anatomical Collection Method Collection Time Receive d Time (Source) Location / / Volume Laterality 03/23/2018 6:00 AM 8 6:09 CDT AM CDT Sosa Arce MD LAB - BLOOD ORDERABLES Performing Organization Address City/[facility]/ZIP [facility] Phon e Number [facility] [address], [place] [address] [facility] [address] [place] [address], [facility] [phone] Lipase (03/23/2018 6:00 AM CDT) athologist Signature Lipase 74 73 - 393 03/23/2018 [facility] U/L 6:30 AM CDT HOSPITAL Specimen Anatomical Collection Method Collection Time Receive d Time (Source) Location / / Volume Laterality Blood specimen 03/23/2018 6:00 AM 018 6:09 (specimen) CDT AM CDT Sosa Arce MD LAB - BLOOD ORDERABLES Performing Organization Address City/[facility] e [facility] [address], [place] [address] [facility] [address] [address] [[email or web address]] [phone] (ABNORMAL) Comprehensive metabolic panel (03/23/2018 6:00 AM CDT) P athologist Signature Sodium 133 133 - 144 03/23/2018 [place] mmol/L 6:30 AM [facility] Potassium 3.8 3.4 - 5.3 03/23/2018 [place] mmol/L 6:30 AM [facility] Chloride 101 94 - 109 03/23/2018 [place] mmol/L 6:30 AM [facility] Carbon Dioxide 25 20 - 32 03/23/2018 [place] mmol/L 6:30 AM [facility] Anion Gap 7 3 - 14 03/23/2018 [place] mmol/L 6:30 AM [facility] Glucose 100 (H) 70 - 99 03/23/2018 [place] mg/dL 6:30 AM [facility] Urea Nitrogen 17 7 - 30 03/23/2018 [place] mg/dL 6:30 AM [facility] Creatinine 1.18 0.66 - 03/23/2018 [place] 1.25 mg/dL 6:30 AM [facility] GFR Estimate 77 >60 03/23/2018 [place] mL/min/1.7 6:[address] Comment: Non GFR Calc GFR Estimate If >90 >60 mL/min/1.7m2 03/23/2018 6:30 A [facility] Comment: GFR Calc Calcium 9.3 8.5 - 10.1 mg/dL 03/23/2018 6:30 AM [facility] Bilirubin Total 0.7 0.2 - 1.3 mg/dL 03/23/2018 6:30 AM [facility] Albumin 4.6 3.4 - 5.0 g/dL 03/23/2018 6:30 AM [facility] Protein Total 8.2 6.8 - 8.8 g/dL 03/23/2018 6:30 AM [facility] Alkaline Phosphatase 110 40 - 150 U/L 03/23/2018 6:30 AM [facility] ALT 62 0 - 70 U/L 03/23/2018 6:[address] [facility] AST 39 0 - 45 U/L 03/23/2018 6:[address] [facility] Specimen Anatomical Collection Method Collection Time Receive d Time (Source) Location / / Volume Laterality Blood specimen 03/23/2018 6:00 AM 018 6:09 (specimen) CDT AM CDT Sosa Arce MD LAB - BLOOD ORDERABLES Performing Organization Address City/State/ZIP Code Phon e Number M [facility] [address], [place] [address] [facility] [address] [phone] (ABNORMAL) CBC with platelets differential (03/23/2018 6:00 AM CDT) [facility] gist Method Time Signature WBC 7.2 4.0 - 03/23/2018 [facility] 11.0 6:13 AM [facility] 10e9/L [facility] RBC Count 5.26 4.4 - 5.9 03/23/2018 [facility] 10e12/L 6:13 AM [facility] Hemoglobin 17.0 13.3 - 03/23/2018 [facility] 17.7 g/dL 6:13 AM [facility] Hematocrit 49.4 40.0 - 03/23/2018 [facility] 53.0 % 6:13 AM [facility] MCV 94 78 - 100 03/23/2018 [facility] fl 6:13 AM [facility] MCH 32.3 26.5 - 03/23/2018 [facility] 33.0 pg 6:13 AM [facility] MCHC 34.4 31.5 - 03/23/2018 [facility] 36.5 g/dL 6:13 AM [facility] RDW 13.0 10.0 - 03/23/2018 [facility] 15.0 % 6:13 AM [facility] Platelet Count 220 150 - 450 03/23/2018 [facility] 10e9/L 6:13 AM [facility] Diff Method Automated 03/23/2018 [facility] Method 6:13 AM [facility] % Neutrophils 79.4 % 03/23/2018 [facility] 6:13 AM [facility] % Lymphocytes 9.6 % 03/23/2018 [facility] 6:13 AM [facility] % Monocytes 10.0 % 03/23/2018 [facility] 6:13 AM [facility] % Eosinophils 0.3 % 03/23/2018 [facility] 6:13 AM [facility] % Basophils 0.4 % 03/23/2018 [facility] 6:13 AM [facility] % Immature 0.3 % 03/23/2018 [facility] Granulocytes 6:13 AM [facility] Nucleated RBCs 0 0 /100 03/23/2018 [facility] 6:13 AM [facility] Absolute 5.7 1.6 - 8.3 03/23/2018 [facility] Neutrophil 10e9/L 6:13 AM [facility] Absolute 0.7 (L) 0.8 - 5.3 03/23/2018 [facility] Lymphocytes 10e9/L 6:13 AM [facility] Absolute 0.7 0.0 - 1.3 03/23/2018 [place] Monocytes 10e9/L 6:13 AM [facility] Absolute 0.0 0.0 - 0.7 03/23/2018 [place] Eosinophils 10e9/L 6:13 AM [facility] Absolute 0.0 0.0 - 0.2 03/23/2018 [place] Basophils 10e9/L 6:13 AM [facility] Abs Immature 0.0 0 - 0.4 03/23/2018 [place] Granulocytes 10e9/L 6:13 AM [facility] Absolute 0.0 03/23/2018 [place] Nucleated RBC 6:13 AM [facility] Specimen Anatomical Collection Method Collection Time Receive d Time (Source) Location / / Volume Laterality Blood specimen 03/23/2018 6:00 AM 018 6:09 (specimen) CDT AM CDT Sosa Arce MD LAB - BLOOD ORDERABLES Performing Organization Address City/State/ZIP Code Phon e Number [place] [address] [phone] documented in this encounter Visit Diagnoses Diagnosis Diarrhea, unspecified type - Primary Vomiting and diarrhea Vomiting alone Nausea & vomiting Nausea with vomiting documented in this encounter Administered Medications Inactive Administered Medications - up to 3 most recent administrations Medication Order MAR Action Action Date Dose Rate Site 0.9% sodium chloride BOLUS New Bag 03/23/2018 6:02 AM CDT 1,000 mLs Intravenous, 1,000 mL, ONCE, On Jes 03/23/18 at 0555, For 1 dose acetaminophen (TYLENOL) tablet 650 mg Given 03/23/2018 9:03 PM CDT 650 mg 650 mg, Oral, EVERY 4 HOURS PRN, mild pain, Starting on Jes 03/23/18 at 1213, Alternate ibuprofen (if ordered) with acetaminophen. Maximum acetaminophen dose from all sources = 75 mg/kg/day not to exceed 4 grams/day. ketorolac (TORADOL) injection 15 mg Given 03/23/2018 6:37 AM CDT 15 mg 15 mg, Intravenous, ONCE, Administer over 2 Minutes, On Jes 03/23/18 at 0635, For 1 dose, Can cause pain on injection. Administer through a running maintenance fluid over 1 minute followed by a flush. If patient complains of pain on injection, may dilute 15-30 mg in 5 mL and push over 1 to 2 minutes. loperamide (IMODIUM) capsule 2 mg 2 mg, Oral, 4 TIMES DAILY PRN, diarrhea, Starting on F sc 03/24/18 at 0955 metoclopramide (REGLAN) injection 5 mg Given 03/23/2018 9:55 AM CDT 5 mg 5 mg, Intravenous, ONCE, On [facility] 03/23/18 at 0941, For 1 dose, Avoid use if patient has full bowel obstruction or perforation. Irritant. For ordered doses up to 10 mg, give IV Push undiluted over 2 minutes. ondansetron (ZOFRAN) injection 4 mg Given 03/23/2018 6:02 AM CDT 4 mg 4 mg, Intravenous, ONCE, Administer over 2-5 Minutes, On [facility] 03/23/18 at 0655, For 1 dose, Irritant. For ordered doses up to 4 mg, give IV Push undiluted over 2-5 minutes. ondansetron (ZOFRAN) injection 4 mg Given 03/23/2018 8:11 AM CDT 4 mg 4 mg, Intravenous, ONCE, Administer over 2-5 Minutes, On [facility] 03/23/18 at 0804, For 1 dose, Irritant. For ordered doses up to 4 mg, give IV Push undiluted over 2-5 minutes. ondansetron (ZOFRAN) injection 4 mg 4 mg, Intravenous, EVERY 6 HOURS PRN, nausea, vomiting , Administer over 2-5 Minutes, Starting on [facility] 03/23/18 at 1213, This is Step 1 of nausea and vomiting management. If nausea not resolved in 15 minutes, go t o Step 2 prochlorperazine (COMPAZINE). Irritant. For ordered doses up to 4 mg, give IV Push undiluted over 2-5 minutes. ondansetron (ZOFRAN-ODT) ODT tab 4 mg 4 mg, Oral, EVERY 6 HOURS PRN, nausea, v omiting, Starting on [facility] 03/23/18 at 1213, This is Step 1 of nausea and vomiting management. If n ausea not resolved in 15 minutes, go to Step 2 prochlorperazine (COMPAZINE). Do not push through foil backing. Peel back foil and gently remove. Place on to ngue immediately. Administration with liquid unnecessary W ith dry hands, peel back foil backing and gently remove tablet; do not push oral d isintegrating tablet through foil backing; administer immediately on tongue and oral disintegrati ng tablet dissolves in seconds; then swallow with saliva; liquid not required . prochlorperazine (COMPAZINE) injection 1 0 mg 10 mg, Intravenous, EVERY 6 HOURS PRN, nausea, vomitin g, Administer over 1-2 Minutes, Starting on Jes 03/23/18 at 1213, This is Step 2 of nausea and vomiting management. Give if nausea not resolved 15 minutes aft er giving ondansetron (ZOFRAN). If nausea not resolved in 15 minutes, go to Step 3 metoclopramide (REGLAN), if ordered. For ordered doses up to 10 mg, give IV Push undiluted. Each 5mg over 1 minute. prochlorperazine (COMPAZINE) Suppository 25 mg 25 mg, Rectal, EVERY 12 HOURS PRN, nausea, vomiting, S tarting on Jes 03/23/18 at 1213, This is Step 2 of nausea and vomit ing management. Give if nausea not resolved 15 minutes after giving ondansetron (ZOF RAN). If nausea not resolved in 15 minutes, go to Step 3 metoclopramide (REGLAN), if ordered. prochlorperazine (COMPAZINE) tablet 10 m g 10 mg, Oral, EVERY 6 HOURS PRN, vomiting , Starting on Jes 03/23/18 at 1213, This is Step 2 of nausea and vomiting management . Give if nausea not resolved 15 minutes after giving ondansetron (ZOFRAN). If na usea not resolved in 15 minutes, go to Step 3 metoclopramide (REGLAN), if ordered. sodium chloride 0.9% infusion New Bag 03/23/2018 9:36 AM CDT 125 mL/hr at 125 mL/hr, Intravenous, ONCE, 1 dose, On Jes 03/23/18 at 0910 sodium chloride 0.9% infusion New Bag 03/24/2018 8:55 AM CDT 100 mL/hr at 100 mL/hr, Intravenous, CONTINUOUS, Starting on Jes 03/23/18 at 1214, Until Tue03/24/18 at 1316 New Bag 03/23/2018 10:29 PM CDT 100 mL/hr Rate/Dose Verify 03/23/2018 9:00 PM CDT 100 mL/hr documented in this encounter Active and Recently Administered Medications Times are shown in CDT. Scheduled Medication Order 03/22/2018 03/23/2018 03/24/2018 0.9% sodium chloride BOLUS (COMPLETED) 0 602 (New Bag - Provider: Facundo Avalos RN)0647 (Stopped - Provider: Facundo Avalos RN) Intravenous, 1,000 mL, ONCE, Jes 03/23/18 at 0555, For 1 dose ketorolac (TORADOL) injection 15 mg (COMPLETED) 0637 (Given - Provider: Facundo Avalos RN) 15 mg, Intravenous, Administer over 2 Mi nutes, ONCE, Jes 03/23/18 at 0635, For 1 dose, Can cause pain on injection. Administer through a running maintenance fluid over 1 minute followed by a flush. If jodie sanders complains of pain on injection, natividad frost dilute 15-30 mg in 5 mL and push over 1 to 2 minutes. metoclopramide (REGLAN) injection 5 mg (COMPLETED) 954 (Given - Provider: Tobi Childers RN) 5 mg, Intravenous, ONCE, Jes 03/23/18 at 0941, For 1 dose, Avoid use if patient has full bowel obstruction or perforation. Irritant. For ordered doses up to 10 mg, give IV Push undiluted over 2 minutes. ondansetron (ZOFRAN) injection 4 mg (COMPLETED) 601 (Given - Provider: Facundo Avalos RN) 4 mg, Intravenous, ONCE, Administer over 2-5 Minutes, Jes 18 at 0655, For 1 dose, Irritant. For ordered doses up to 4 mg, give IV Push undiluted over 2-5 minutes. ondansetron (ZOFRAN) injection 4 mg (COMPLETED) 810 (Given - Provider: Tobi Childers RN) 4 mg, Intravenous, ONCE, Administer over 2-5 Minutes, Jes 18 at 0804, For 1 dose, Irritant. For ordered doses up to 4 mg, give IV Push undiluted over 2-5 minutes. sodium chloride (PF) 0.9% PF flush 3 mL 1255 (Not Given - Provider: Celi Ulrich RN - Reason: IV Infusing)2229 (Not Given - Provider: Carolyn Pradhan RN - Reason: IV Infusing) 0856 (Not Given - Provider: Joanna Siegel am, RN - Reason: IV Infusing) 3 mL, Intracatheter, EVERY 8 HOURS, Firs t dose on Jes 03/23/18 at 1214, And Q1H PRN, to lock peripheral IV dormant line. sodium chloride 0.9% infusion (COMPLETED) 0936 (New Bag - Provider: Tobi Childers RN)1039 (Stopped - Provider: Tobi Childers RN) at 125 mL/hr, Intravenous, ONCE, 1 dose, Jes 03/23/18 at 0910 Continuous Medication Order 03/22/2018 03/23/2018 03/24/2018 sodium chloride 0.9% infusion 1253 (New Bag - Provider: Celi Ulrich RN)2100 (Rate/Dose Verify - Provider: Carolyn Pradhan RN)2229 (New Bag - Provider: Carolyn Pradhan RN) 0855 (New Bag - Provider: Joanna Calero RN) at 100 mL/hr, Intravenous, CONTINUOUS, S tarting Jes 03/23/18 at 1214, Until Tue03/24/18 at 1316 PRN Medication Order 03/22/2018 03/23/2018 03/24/2018 acetaminophen (TYLENOL) Suppository 650 mg 650 mg, Rectal, EVERY 4 HOURS PRN, mild pain, Starting Jes 03/23/18 at 1213, Alternate ibuprofen (if ordered) with acetaminophen. Maximum acetaminophen dose from all sources = 75 mg/kg/day not to exceed 4 grams/day. acetaminophen (TYLENOL) tablet 650 mg 18 01 (Given - Provider: Carolyn Pradhan RN) 650 mg, Oral, EVERY 4 HOURS PRN, mild pa in, Starting Jes 03/23/18 at 1213, Alternate ibuprofen (if ordered) with acetaminophen. Maximum acetaminophen dose from all sources = 75 mg/kg/day not to exceed 4 grams/day. lidocaine (LMX4) kit Topical, EVERY 1 HOUR PRN, pain, with VA D insertion or accessing implanted port., Starting Jes 03/23/18 at 1213, Do NOT give if patient has a history of allergy to any local anesthetic or any quinn pro duct. Apply 30 minutes prior to VAD inse rtion or port access. MAX Dose: 2.5 g (?? of 5 g tube). lidocaine 1 % 1 mL 1 mL, Other, EVERY 1 HOUR PRN, mild pain with VAD insertion or accessing implanted port, Starting Jes 03/23/18 at 1213, Do NOT give if patient has a history of allergy to any local anesthetic or any jaylin ne product. MAX dose 1 mL subcutaneous OR intradermal in divide d doses. loperamide (IMODIUM) capsule 2 mg 2 mg, Oral, 4 TIMES DAILY PRN, diarrhea, Starting Tue03/24/18 at 0955 naloxone (NARCAN) injection 0.1-0.4 mg 0.1-0.4 mg, Intravenous, EVERY 2 MIN PRN , opioid reversal, Starting Jes 03/23/18 at 1213, For respiratory rate LESS than or EQUAL to 8. Partial reversal dose: 0.1 mg titrated q 2 minutes for Analgesia Si de Effects Monitoring Sedation Level of 3 (frequently drowsy, arousable, drifts to sleep during conversation).Full reversal dose: 0.4 mg bolus for Analgesia Side Effects Monitoring Sedation Level of 4 ( somnolent, minimal or no response to sti mulation). For ordered doses up to 2mg give IVP. Give each 0.4mg over 15 seconds in emergency situations. For non- emergent situations further dilute in 9mL of NS to facilitate titration of response. ondansetron (ZOFRAN) injection 4 mg(Linked Group 1) 4 mg, Intravenous, EVERY 6 HOURS PRN, na usea, vomiting, Administer over 2-5 Minutes, Starting Jes 03/23/18 at 1213, This is Step 1 of nausea and vomiting management. If nausea not resolved in 15 minutes, go to Step 2 prochlorperazine (COMPAZIN E). Irritant. For ordered doses up to 4 mg, give IV Push undiluted over 2-5 minutes. ondansetron (ZOFRAN-ODT) ODT tab 4 mg(Linked Group 1) 4 mg, Oral, EVERY 6 HOURS PRN, nausea, v omiting, Starting Jes 5/24/18 at 1213, This is Step 1 of nausea and vomiting management. If nausea not resolved in 15 minutes, go to Step 2 prochlorperazine (COMP AZINE). Do not push through foil backing . Peel back foil and gently remove. Place on tongue immediately. Administration with liquid unnecessary With dry hands, peel back foil backing and gently remove t ablet; do not push oral disintegrating t ablet through foil backing; administer immediately on tongue and oral disintegrating tablet dissolves in seconds; then swallow with saliva; liquid not required. prochlorperazine (COMPAZINE) injection 10 mg(Linked Group 2) 10 mg, Intravenous, EVERY 6 HOURS PRN, n ausea, vomiting, Administer over 1-2 Minutes, Starting Jes 03/23/18 at 1213, This is Step 2 of nausea and vomiting management. Give if nausea not resolved 15 minut es after giving ondansetron (ZOFRAN). If nausea not resolved in 15 minutes, go to Step 3 metoclopramide (REGLAN), if ordered. For ordered doses up to 10 mg, give IV Push undiluted. Each 5mg over 1 minute. prochlorperazine (COMPAZINE) Suppository 25 mg(Linked Group 2) 25 mg, Rectal, EVERY 12 HOURS PRN, nause a, vomiting, Starting Jes 18 at 1213, This is Step 2 of nausea and vomiting management. Give if nausea not resolved 15 minutes after giving ondansetron (ZOFR AN). If nausea not resolved in 15 minute s, go to Step 3 metoclopramide (REGLAN), if ordered. prochlorperazine (COMPAZINE) tablet 10 mg(Linked Group 2) 10 mg, Oral, EVERY 6 HOURS PRN, vomiting , Starting Jes 18 at 1213, This is Step 2 of nausea and vomiting management. Give if nausea not resolved 15 minutes after giving ondansetron (ZOFRAN). If zaina sea not resolved in 15 minutes, go to St ep 3 metoclopramide (REGLAN), if ordered. sodium chloride (PF) 0.9% PF flush 3 mL 3 mL, Intracatheter, EVERY 1 HOUR PRN, l ine flush, Starting Jes 18 at 1213, for peripheral IV flush post IV meds Linked Groups Order Group 1: ondansetron (ZOFRAN-ODT) ODT tab 4 mgJump to med 4 mg, Oral, EVERY 6 HOURS PRN, nausea, v omiting, Starting Jes 03/23/18 at 1213
This is Step 1 of nausea and vomiting management. If nausea not resolved in 15 minutes, go to St ep 2 prochlorperazine (COMPAZINE). Do no t push through foil backing. Peel back foil and gently remove. Place on tongue immediately. Administration with liquid unnecessary With dry hands, peel b ack foil backing and gently remove table t; do not push oral disintegrating tablet through foil backing; administer immediately on tongue and oral disintegrating tablet dissolves in seconds; then swallow with saliva; liquid not required.
Or ondansetron (ZOFRAN) injection 4 mgJump to med 4 mg, Intravenous, EVERY 6 HOURS PRN, na usea, vomiting, Administer over 2-5 Minutes, Starting Jes 03/23/18 at 1213
This is Step 1 of nausea and vomiting management. If nausea not resolved in 15 minutes, go to Step 2 prochlorperazine (COMPAZINE). Irritant. For ordered doses up to 4 mg, give IV Push undiluted over 2-5 minutes.
Group 2: prochlorperazine (COMPAZINE) injection 10 mgJump to med 10 mg, Intravenous, EVERY 6 HOURS PRN, n ausea, vomiting, Administer over 1-2 Minutes, Starting Jes 03/23/18 at 1213
This is Step 2 of nausea and vomiting management. Give if nausea not resolved 15 minutes after giving ondansetron (ZOF RAN). If nausea not resolved in 15 minutes, go to Step 3 metoclopramide (REGLAN), if ordered. For ordered doses up to 10 mg, give IV Push undiluted. Each 5mg over 1 minute.
Or prochlorperazine (COMPAZINE) tablet 10 mgJump to med 10 mg, Oral, EVERY 6 HOURS PRN, vomiting , Starting Jes 03/23/18 at 1213
This is Step 2 of nausea and vomiting management. Give if nausea not resolved 15 minutes after giving ondansetron (ZOFRAN) . If nausea not resolved in 15 kassy elinor, go to Step 3 metoclopramide (REGLAN), if ordered.
Or prochlorperazine (COMPAZINE) Suppository 25 mgJump to med 25 mg, Rectal, EVERY 12 HOURS PRN, nause a, vomiting, Starting Jes 03/23/18 at 1213
This is Step 2 of nausea and vomiting management. Give if nausea not resolved 15 minutes after giving ondansetr on (ZOFRAN). If nausea not resolved in 15 minutes, go to Step 3 metoclopramide (REGLAN), if ordered.
documented in this encounter Additional Health Concerns Assessment Noted Time PHQ-9 Depression Total Score: 5 09/08/2016 7:22 AM MANGLE ROLL OPERATOR documented as of this encounter Care Teams Editor Relationship Specialty Start Date End Date Annalisa Silva, PCP - General Nurse Practitioner - 08/26/15 04/10/19 CHURCH HISTORY PROFESSOR [facility] [address] [place], [place] [address] Annalisa Silva, PCP - Assigned PCP 09/12/16 11/18/18 CHURCH HISTORY PROFESSOR [address] [place] [address] documented as of this encounter
--- OUTSIDE RECORDS SUMMARY | 2022-09-26 20:25 | XMS_ITS | Encounter Summary ---
:1995 Author Organization [place] Address [address] [place] [address] Care Team Providers Name Role Phone Annalisa Silva NP Primary Care Provider [phone] Reason for Visit Reason Comments Physical fasting Encounter Details Date Type Department Care Team Description 09/07/2016 Office Visit [facility] Annalisa Silva [facility] giovanna are maintenance (Primary Dx); Clinic Meghan Yousif NP Generalized anxiety disorder; [address] Morbid obesity due to excess calories (H ) [place] [id number] [phone] Social History Tobacco Use Types Packs/Day Years [...] Sign Reading Time Taken Comments Blood Pressure 128/84 09/07/2016 7:32 AM SENIOR CHEMICAL PROCESS ENGINEER Pulse 78 09/07/2016 7:32 AM SENIOR CHEMICAL PROCESS ENGINEER Temperature 36.1 ??C (97 ??F) 09/07/2016 7:32 AM SENIOR CHEMICAL PROCESS ENGINEER Respiratory Rate 16 09/07/2016 7:32 AM SENIOR CHEMICAL PROCESS ENGINEER Oxygen Saturation 99% 09/07/2016 7:32 AM SENIOR CHEMICAL PROCESS ENGINEER Inhaled Oxygen Concentration - - Weight 129.4 kg (285 lb 4.8 oz) 09/07/2016 7:32 AM SENIOR CHEMICAL PROCESS ENGINEER Height 188 cm (6' 2) 09/07/2016 7:32 AM SENIOR CHEMICAL PROCESS ENGINEER Body Mass Index 36.63 09/07/2016 7:32 AM SENIOR CHEMICAL PROCESS ENGINEER documented in this encounter Patient Instructions Patient InstructionsStephonjacqueline Lexy, MA - 09/07/2016 7:34 AM CST Preventive Health Recommendations Male Ages 18 - 25 Yearly exam: ?? See your [...] instead of white grains and rice. ??? Talk to your provider about calcium and Vitamin D. Lifestyle ??? Exercise for at least 150 minutes a week (30 minutes a day, 5 days a week). This will help you control your weight and prevent disease. ??? Limit alcohol to one drink per day. ??? No smoking. ??? Wear sunscreen to prevent skin cancer. ??? See your dentist every six months for an exam and cleaning. Annalisa Silva CUSTODY OFFICER OR CHEMICAL PROCESS ENGINEER documented in this encounter Progress Notes Annalisa Silva NP - 09/07/2016 7:34 AM CST SUBJECTIVE: CC: Seamus Barnes is an 21 year old male who presents for preventative health visit. Healthy Habits: ?? Do you get at least three servings of calcium containing foods daily (dairy, green leafy vegetables, etc.)? yes ?? Amount of exercise or daily activities, outside of work: 4-5 day(s) per week ?? Problems taking medications regularly No ?? Medication side effects: No ?? Have you had an eye exam in the past two years? yes ?? Do you see a dentist twice per year? yes ?? Do you have sleep apnea, excessive snoring or daytime drowsiness?no Other concerns to address: Anxiety sx, has f/u with psychiatrist Today's PHQ-2 Score: PHQ-2 (??1998 Pf[employer]) 07/22/2016 08/26/2015 Q1: Little interest or pleasure in doing things 0 0 Q2: Feeling down, depressed or hopeless 0 0 PHQ-2 Score 0 0 Abuse: Current or Past(Physical, Sexual or Emotional)- No Do you feel safe in your environment - Yes Social History Substance Use Topics ??? Smoking status: Passive Smoke Exposure - Never Smoker ??? Smokeless tobacco: Never Used Comment: dad smokes outside ??? Alcohol Use: Yes Comment: occasional The patient does not drink >3 drinks per day nor >7 drinks per week. Last PSA: No results found for: PSA Recent Labs Lab Test 02/20/13 1502 CHOL 161 Reviewed orders with patient. Reviewed health maintenance and updated orders accordingly - Yes All Histories reviewed and updated in [facility]. ROS: C: NEGATIVE for fever, chills, change in weight ENT: NEGATIVE for ear, mouth and throat [...] NEGATIVE for changes in mood or affect BP Readings from Last 3 Encounters: 09/07/16 128/84 07/22/16 134/68 04/22/16 104/76 Wt Readings from Last 3 Encounters: 09/07/16 285 lb 4.8 oz (129.411 kg) 07/22/16 285 lb (129.275 kg) 04/22/16 283 lb 11.2 oz (128.685 kg) Patient Active Problem List Diagnosis ??? Obesity ??? Pneumonia ??? Anxiety disorder Past Surgical History Procedure Laterality Date ??? Orthopedic surgery 07/29/16 rt knee Social History Substance Use Topics ??? Smoking status: Passive Smoke Exposure - Never Smoker ??? Smokeless tobacco: Never Used Comment: dad smokes outside ??? Alcohol Use: Yes Comment: occasional Family History Problem Relation Age of Onset ??? Family History Negative Mother ??? Family History Negative Father ??? Other Cancer Paternal Grandmother No current outpatient prescriptions on file. OBJECTIVE: BP 128/84 mmHg Pulse 78 Temp(Src) 97 ??F (36.1 ??C) (Oral) Resp 16 Ht 6' 2 (1.88 m) Wt 285 lb 4.8 oz (129.411 kg) BMI 36.61 kg/m2 SpO2 99% EXAM: GENERAL: healthy, alert and no distress NECK: [...] no gross musculoskeletal defects noted, no edema PSYCH: mentation appears normal, affect normal/bright ASSESSMENT/PLAN: ICD-10-CM 1. Health care maintenance Z00.00 CBC with platelets Basic metabolic panel Lipid Profile ALT TSH with free T4 reflex 2. Generalized anxiety disorder F41.1 3. Morbid obesity due to excess calories (H) E66.01 COUNSELING: Reviewed preventive health counseling, as reflected in patient instructions reports that he has been passively smoking. He has never used smokeless tobacco. Estimated body mass index is 36.61 kg/(m^2) as calculated from the following: Height as of this encounter: 6' 2 (1.88 m). Weight as of this encounter: 285 lb 4.8 oz (129.411 kg). Weight management plan: Discussed healthy diet and exercise guidelines and patient will follow up in6 months in clinic to re-evaluate. Counseling Resources: ATP IV Guidelines Pooled Cohorts Equation Calculator FRAX Risk Assessment ICSI Preventive Guidelines Dietary Guidelines for Americans, 2010 USDA's MyPlate ASA Prophylaxis Lung CA Screening Annalisa Silva NP [facility] OR CHEMICAL PROCESS ENGINEER documented in this encounter Nursing Notes Lexy Henry MA - 09/07/2016 7:34 AM CST Chief Complaint Patient presents with ??? Physical fasting Initial BP 128/84 mmHg Pulse 78 Temp(Src) 97 ??F (36.1 ??C) (Oral) Resp 16 Ht 6' 2 (1.88 m) Wt 285 lb 4.8 oz (129.411 kg) BMI 36.61 kg/m2 SpO2 99% Estimated body mass index is 36.61 kg/(m^2) as calculated from the following: Height as of this encounter: 6' 2 (1.88 m). Weight as of this encounter: 285 lb 4.8 oz (129.411 kg). BP completed using cuff size: large OR CHEMICAL PROCESS ENGINEER documented in this encounter Plan of Treatment Upcoming Encounters Date Type Specialty Care Team Description 11/04/2022 Office Visit Internal Medicine Marcy Ricketts APRN CUSTODY OFFICER [address] [place], [place] [address] (Wo rk) documented as of this encounter Procedures Procedure Name Priority Date/Time Associated Diagnosis Comme nts TSH WITH FREE T4 Routine 09/07/2016 8:02 AM Health care Resul ts for this REFLEX SENIOR CHEMICAL PROCESS ENGINEER maintenance procedure are i n the results section. LIPID PROFILE Routine 09/07/2016 8:02 AM Health care Results for this SENIOR CHEMICAL PROCESS ENGINEER maintenance procedure are i n the results section. ALT Routine 09/07/2016 8:02 AM Health care Results f or this SENIOR CHEMICAL PROCESS ENGINEER maintenance procedure are i n the results section. BASIC METABOLIC Routine 09/07/2016 8:02 AM Health care Result s for this PANEL SENIOR CHEMICAL PROCESS ENGINEER maintenance procedure are i n the results section. CBC WITH PLATELETS Routine 09/07/2016 8:02 AM Health care Res ults for this SENIOR CHEMICAL PROCESS ENGINEER maintenance procedure are i n the results section. documented in this encounter Results TSH with free T4 reflex (09/07/2016 8:02 AM SENIOR CHEMICAL PROCESS ENGINEER) P athologist Signature TSH 2.78 0.40 - 4.00 [facility] mU/L [facility] Specimen Anatomical Collection Method Collection Time Receive d Time (Source) Location / / Volume Laterality Blood specimen 09/07/2016 8:02 AM 016 8:08 (specimen) SENIOR CHEMICAL PROCESS ENGINEER AM SENIOR CHEMICAL PROCESS ENGINEER Annalisa Silva NAVAL AIRCREWMAN TACTICAL HELICOPTER LAB - BLOOD ORDERABLES Performing Organization Address City/[facility] Phon e Number [facility] [address] [place] [phone] (ABNORMAL) ALT (09/07/2016 8:02 AM SENIOR CHEMICAL PROCESS ENGINEER) athologist Signature ALT 86 (H) 0 - 70 U/L [facility] Specimen Anatomical Collection Method Collection Time Receive d Time (Source) Location / / Volume Laterality Blood specimen 09/07/2016 8:02 AM 016 8:08 (specimen) SENIOR CHEMICAL PROCESS ENGINEER AM SENIOR CHEMICAL PROCESS ENGINEER Annalisa Silva NAVAL AIRCREWMAN TACTICAL HELICOPTER LAB - BLOOD ORDERABLES Performing Organization Address City/[facility] Code Phon e Number [facility] [address] [place] [phone] (ABNORMAL) Lipid Profile (09/07/2016 8:02 AM SENIOR CHEMICAL PROCESS ENGINEER) [facility] gist Method Time Signature Cholesterol 195 <200 [place] mg/dL [facility] Triglycerides 68 <150 [place] mg/dL [facility] HDL Cholesterol 41 >39 mg/dL [facility] LDL Cholesterol 140 (H) <100 [place] Calculated mg/dL [facility] Comment: Above desirable: ??100-129 mg/dl Borderline High: ??130-159 mg/dL High: ? 160-189 mg/dL Very high: ? >189 mg/dl Non HDL Cholesterol 154 (H) <130 mg/dL [facility] Comment: Above Desirable: ??130-159 mg/dl Borderline high: ??160-189 mg/dl High: ? 190-219 mg/dl Very high: ? >219 mg/dl Specimen Anatomical Collection Method Collection Time Receive d Time (Source) Location / / Volume Laterality Blood specimen 09/07/2016 8:02 AM 016 8:08 (specimen) SENIOR CHEMICAL PROCESS ENGINEER AM SENIOR CHEMICAL PROCESS ENGINEER Annalisa Silva NAVAL AIRCREWMAN TACTICAL HELICOPTER LAB - BLOOD ORDERABLES Performing Organization Address City/[facility]/ZIP Code Phon e Number [facility] [address] [place] [address] Basic metabolic panel (09/07/2016 8:02 AM SENIOR CHEMICAL PROCESS ENGINEER) P athologist Signature Sodium 140 133 - 144 [place] mmol/L [facility] Potassium 4.4 3.4 - 5.3 [place] mmol/L [facility] Chloride 104 94 - 109 [place] mmol/L [facility] Carbon Dioxide 31 20 - 32 [place] mmol/L [facility] Anion Gap 5 3 - 14 [place] mmol/L [facility] Glucose 93 70 - 99 [place] mg/dL [facility] Urea Nitrogen 12 7 - 30 [place] mg/dL [facility] Creatinine 1.10 0.66 - [place] 1.25 mg/dL [facility] GFR Estimate 85 >60 [place] mL/min/1.7 CLINICS m2 [facility] Comment: Non GFR Calc GFR Estimate If >90 >60 mL/min/1.7m2 [facility] Black GFR Calc [facility] Calcium 9.5 8.5 - 10.1 mg/dL [place] CLIN ICS [facility] Specimen Anatomical Collection Method Collection Time Receive d Time (Source) Location / / Volume Laterality Blood specimen 09/07/2016 8:02 AM 016 8:08 (specimen) SENIOR CHEMICAL PROCESS ENGINEER AM SENIOR CHEMICAL PROCESS ENGINEER Annalisa Silva NAVAL AIRCREWMAN TACTICAL HELICOPTER LAB - BLOOD ORDERABLES Performing Organization Address City/[facility]/ZIP Code Phon e Number [facility] [address] [address] CBC with platelets (09/07/2016 8:02 AM SENIOR CHEMICAL PROCESS ENGINEER) P athologist Signature WBC 5.8 4.0 - 11.0 [facility] 10e9/L [facility] RBC Count 4.90 4.4 - 5.9 [place] 10e12/L [facility] Hemoglobin 15.9 13.3 - [place] 17.7 g/dL [facility] Hematocrit 46.2 40.0 - [place] 53.0 % [facility] MCV 94 78 - [address] [facility] MCH 32.4 26.5 - [place] 33.0 pg [facility] MCHC 34.4 31.5 - [place] 36.5 g/dL [facility] RDW 12.8 10.0 - [place] 15.0 % [facility] Platelet Count 183 150 - 450 [place] 10e9/L [facility] Specimen Anatomical Collection Method Collection Time Receive d Time (Source) Location / / Volume Laterality Blood specimen 09/07/2016 8:02 AM 016 8:08 (specimen) SENIOR CHEMICAL PROCESS ENGINEER AM SENIOR CHEMICAL PROCESS ENGINEER Annalisa Silva NP LAB - BLOOD ORDERABLES Performing Organization Address City/State/ZIP Code Phon e Number [facility] [address] [place], [place] [address] [address] documented in this encounter Visit Diagnoses Diagnosis Health care maintenance - Primary Unspecified general medical examination Generalized anxiety disorder Morbid obesity due to excess calories (H ) documented in this encounter Additional Health Concerns Assessment Noted Time PHQ-9 Depression Total Score: 5 09/08/2016 7:22 AM SENIOR CHEMICAL PROCESS ENGINEER documented as of this encounter Care Teams Automated Teller Manager Relationship Specialty Start Date End Date Annalisa Silva NP PCP - General Nurse Practitioner - Adult 08/26/15 [address] [place] [address] documented as of this encounter
--- OUTSIDE RECORDS SUMMARY | 2022-09-26 20:25 | XMS_ITS | Encounter Summary ---
:1995 Author Organization [place] Address [facility] [place] [address] Care Team Providers Name Role Phone Annalisa Silva SUPERVISOR CORE DRILLING Primary Care Provider [phone] Annalisa Silva SUPERVISOR CORE DRILLING Unavailable Encounter Details Date Type Department Care Team Description 03/13/2017 Radiant Appointment [facility] Karen Nassar In jury of [facility] KarenDO [place], initial [id number] [place] [address] [place] encounter [place] [phone] [phone] Social History Tobacco Use Types Packs/Day Years [...] Office Visit Internal Medicine Marcy Ricketts APRN ART HISTORIAN [address] [place], [place] [address] (Wo rk) documented as of this encounter Procedures Procedure Name Priority Date/Time Associated Diagnosis Comme nts XR FINGER LEFT G/E Routine 03/13/2017 9:57 AM Injury of left R esults for this 2 VIEWS CDT thumb, initial procedure are in encounter the results section. documented in this encounter Results XR Finger Left G/E 2 Views (03/13/2017 [...] Depression Total Score: 5 09/08/2016 7:22 AM DOCUMENT PHOTOGRAPHER documented as of this encounter Care Teams Assistant Farm Operations Manager Relationship Specialty Start Date End Date Annalisa Silva, PCP - General Nurse Practitioner - 08/26/15 04/10/19 SUPERVISOR CORE DRILLING Adult Health [address] [place] [address] Annalisa Silva, PCP - Assigned PCP 09/12/16 11/18/18 SUPERVISOR CORE DRILLING [address] [place] [address] documented as of this encounter
--- OUTSIDE RECORDS SUMMARY | 2022-09-26 20:26 | XMS_ITS | Encounter Summary ---
:1995 Author Organization [place] Address [address] [facility] [place] [address] Care Team Providers Name Role Phone Matthieu Olsen MD Primary Care Provider Unavailable Reason for Referral Referral not Required - Closed Specialty Diagnoses / Procedures Referred By Contact Refer red To Contact Diagnoses Pain of male genitalia [facility] [address] [place] [phone] Referral ID Status Reason Start Date Expiration Date Visits Requ ested Visits Authorized [id number] Closed 05/10/2013 11/06/2013 1 1 Reason for Visit Reason Comments Pain on right side down to his te stes, comes on ramdonly Encounter Details Date Type Department Care Team Description 05/10/2013 [facility] Clinic Meghan Hobson MD Screen for STD (sexually tra nsmitted disease); [address] Pain of male ge nitalia; [place] [address] Social History Tobacco Use Types [...] Sign Reading Time Taken Comments Blood Pressure 90/62 05/10/2013 9:33 AM CDT Pulse - - Temperature 36.5 ??C (97.7 ??F) 05/10/2013 9:33 AM CDT Respiratory Rate - - Oxygen Saturation - - Inhaled Oxygen Concentration - - Weight 103.3 kg (227 lb 12.8 oz) 05/10/2013 9:33 AM CDT Height 184.2 cm (6' 0.5) 05/10/2013 9:33 AM CDT Body Mass Index 30.47 05/10/2013 9:33 AM CDT Body Mass Index Percentile 97.29 % 05/10/2013 9:33 AM CD T Growth Chart: [facility] (Boys, 2-20 Years) documented in this encounter Patient Instructions Patient InstructionsSkIan clark - 05/10/2013 9:42 AM CDT Acetaminophen (Tylenol) Doses: For a child who weighs over 96 pounds, the dose would be (640mg): 20mL of the Children's Acetaminophen (160mg/5mL) every 4 hours as needed OR 2 tablets of the Regular Strength Tylenol (325mg each) every 4 hours as needed Ibuprofen (Motrin, Advil) Doses: For a child who weighs Over 96 pounds, the dose would be (400mg): 20mL of the Children's Ibuprofen (100mg/5mL) every 6 hours as needed OR 4 tablets of the Children's Ibuprofen (100mg per tablet) every 6 hours as needed OR 2 caplets or tablets of Adult Ibuprofen (200mg per tablet) every 6 hours as needed documented in this encounter Progress Notes Matthieu Olsen MD - 05/10/2013 9:36 AM CDT SUBJECTIVE: Seamus Barnes is a 18 year old male who presents to clinic today for the following health issues: Side pain on right side down into his testicles, been going off and on for a couple years No fever Has felt nauseous but no vomiting,diarrhea No dysuria,hematuria. He has been sexually active,uses condom,denies any known STD but has never been tested. 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 Chest/Lungs: clear CV: Negative Abdomen: NEGATIVE for bowel sounds normal, liver span normal to percussion and soft, non-tender : normal male,no testicular tenderness,no urethral d/c Exam.: Filed Vitals: 05/10/1333 BP: 90/62 Temp: 97.7 ??F (36.5 ??C) TempSrc: Oral Height: 6' 0.5 (1.842 m) Weight: 227 lb 12.8 oz (103.329 kg) General: Well nourished, well developed without apparent distress, healthy, alert, active, no distress Skin: good color,and perfusion no rash Head: atraumaticnormocephali Eye: no redness or d/c HENT: NEGATIVE for nose,mouth without ulcers or lesions, TM's pearly astudillo, normal light reflex bilateral, oral mucous membranes moist and oropharynx clear. Chest/Lungs: clear CV: Negative Abdomen: NEGATIVE for bowel sounds normal, liver span normal to percussion and soft, non-tender : normal male Ortho: moving all extrimities wel.no bony tenderness,no joint swelling or redness Neuro: Appropriate for age. Impression:abdominal pain Decision making:psince the exam today is benign and has no fever or vomitng and recent CT of abdomenand testicular CT negative are all reassuring features Since he is sexually active STD scerening done to r/o STD as the cause of infection however negative Reassurance. Safe sex discussed If symptoms continue advised to see urology for further opinion. documented in this encounter Nursing Notes 05/10/2013 8:45 AM CDT >> IAN MICHEL [facility] May 10, 2013 9:58 AM Medical records from [facility] visit from 04/29/[address] Olsen's request. Ian Michel [facility] ([facility]) >> OMER NEWSOME [facility] May 10, 2013 9:38 AM Patient presents with: Pain - on right side down to his testes, comes on ramdonly Initial BP 90/62 Ht 6' 0.5 (1.842 m) Wt 227 lb 12.8 oz (103.329 kg) BMI 30.47 kg/m2 EstimatedBody mass index is 30.47 kg/(m^2) as calculated from the following: Height as of this encounter: 6' .5(1.842 m). Weight as of this encounter: 227 lb 12.8 oz(103.329 kg). BP completed using cuff size: large documented in this encounter Plan of Treatment Upcoming Encounters Date Type Specialty Care Team Description 11/04/2022 Office Visit Internal Medicine Marcy Ricketts APRN [employer] [address] [place], [place] [address] (Wo rk) Scheduled Referrals Name Type Priority Associated Diagnoses Order S chedule UROLOGY PEDS REFERRAL Referral Routine Pain of male genita siva Ordered: 05/10/2013 documented as of this encounter Procedures Procedure Name Priority Date/Time Associated Diagnosis Comme nts NEISSERIA Routine 05/10/2013 11:25 Screen for STD Results f or this GONORRHOEAE PCR AM CDT (sexually procedure ar e in transmitted disease) the res ults section. CHLAMYDIA Routine 05/10/2013 11:25 Screen for STD Results f or this TRACHOMATIS PCR AM CDT (sexually procedure ar e in transmitted disease) the res ults section. WET PREPARATION AMRIT 05/10/2013 11:11 Screen for STD Result s for this AM CDT (sexually procedure are i n transmitted disease) the res ults section. UA MACROSCOPIC WITH Routine 05/10/2013 11:02 Jock itch Resu lts for this REFLEX TO AM CDT procedure are i n MICROSCOPIC AND the results CULTURE section. documented in this encounter Results CHLAMYDIA TRACHOMATIS PCR (05/10/2013 11:25 AM CDT) Component Value Ref Test Analysis Performed At [facility] [employer] Range Method Time Signature Specimen Urine [facility] Chlamydia Negative for C. trachomatis rRNA by asphalt spreader operator mediated amplification. [facility] Trachomatis A negative result by transc ription mediated amplification does not preclude the MICROBIOLOGY PCR presence of C. trachomatis infection because results are dependent on proper and adequate collection, absence of inhibitors, and suffici ent rRNA to be detected. Specimen Anatomical Collection Method Collection Time Receive d Time (Source) Location / / Volume Laterality Urethral swab 05/10/2013 11:25 05/10/2013 (specimen) AM CDT 11:30 AM CDT Matthieu Olsen MD LAB - MICRO GENERAL ORDERABL ES Performing Organization Address City/State/ZIP Code Phon e Number [address] [address] [facility] [address] [place], [place] [address] [address] [facility] MICROBIOLOGY NE[place]ER[place] GONORRHOEA PCR (05/10/2013 11:25 AM CDT) Component Value Ref Test Analysis Performed At [facility] [employer] Range Method Time Signature Specimen Urine [facility] N Gonorrhea Negative for N. gonorrhoeae rRNA by asphalt spreader operator mediated amplification. [facility] PCR A negative result by transc ription mediated amplification does not preclude the MICROBIOLOGY presence of N. gonorrhoeae infection because re sults are dependent on proper and adequate collection, absence of inhibitors, and suffici ent rRNA to be detected. Specimen Anatomical Collection Method Collection Time Receive d Time (Source) Location / / Volume Laterality Urethral swab 05/10/2013 11:25 05/10/2013 (specimen) AM CDT 11:30 AM CDT Matthieu Olsen MD LAB - MICRO GENERAL ORDERABL ES Performing Organization Address City/State/ZIP Code Phon e Number [address] [address] [facility] [address] [place], [place] [address] [address] [facility] MICROBIOLOGY Wet prep (05/10/2013 11:11 AM CDT) [facility] Method Time Signature Specimen Urethral [place] Description [facility] Wet Prep No yeast seen [place] No Trichomonas seen [facility] Micro Report FINAL [place] Status 05/10/2013 [facility] Specimen Anatomical Collection Method Collection Time Receive d Time (Source) Location / / Volume Laterality 05/10/2013 11:11 05/10/2013 AM CDT 11:16 AM CDT Matthieu Olsen MD LAB - MICRO GENERAL ORDERABL ES Performing Organization Address City/[facility]/ZIP Code Phon e Number [facility] [address] [place], [place] [address] [address] [facility] [address] [place], [place] [address] [address] *UA reflex to Microscopic and Culture (05/10/2013 11:02 AM CDT) [facility] Method Time Signature Color Urine Yellow [facility] Appearance Urine Clear [facility] Glucose Urine Negative NEG mg/dL [facility] Bilirubin Urine Negative NEG [facility] Ketones Urine Negative NEG mg/dL [facility] Specific [place] 1.010 1.003 - [place] Urine 1.035 [facility] Blood Urine Negative NEG [facility] pH Urine 7.0 5.0 - 7.0 [place] pH [facility] Protein Albumin Negative NEG mg/dL [facility] Urobilinogen 0.2 0.2 - 1.0 [place] Urine EU/dL [facility] Nitrite Urine Negative NEG [facility] Leukocyte Negative NEG [place] Esterase Urine [facility] Source Midstream [place] Urine [facility] Specimen Anatomical Collection Method Collection Time Receive d Time (Source) Location / / Volume Laterality Urine specimen 05/10/2013 11:02 3 (specimen) AM CDT 11:07 AM CDT Chato Haque MD LAB - URINE ORDERABLES Performing Organization Address City/State/ZIP Code Phon e Number [facility] [address] [place], [place] [address] [address] [facility] [address] [place], [place] [address] [address] documented in this encounter Visit Diagnoses Diagnosis Jock itch - Primary Dermatophytosis of groin and perianal ar ea Screen for STD (sexually transmitted dis ease) Screening examination for venereal disea se Pain of male genitalia Unspecified disorder of male genital org ans Obesity Obesity, unspecified documented in this encounter Care Teams Language Translator Relationship Specialty Start Date End Date Matthieu Olsen MD PCP - General 12/15/01 documented as of this encounter
--- OUTSIDE RECORDS SUMMARY | 2022-09-26 20:26 | XMS_ITS | Encounter Summary ---
:1995 Author Organization [place] Address [facility] 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, Encounter Details Date Type Department Care Team Description 06/26/2012 Office Visit [place] [facility] S[facility] (Primary Orthopedic [place], DO Dx) Care-[facility] [address] [facility], [address] [facility] [address] [place] [address] [phone] Social History Tobacco Use Types Packs/Day Years Used Date Smoking Tobacco: Passive Smoke Exposure - Never Smoker Comments: dad smokes outside Alcohol Use Standard [...] Sign Reading Time Taken Comments Blood Pressure 106/64 06/26/2012 8:47 AM CDT Pulse - - Temperature - - Respiratory Rate - - Oxygen Saturation - - Inhaled Oxygen Concentration - - Weight 93.4 kg (206 lb) 06/26/2012 8:47 AM CDT Height 182.9 cm (6') 06/26/2012 8:47 AM CDT Body Mass Index 27.94 06/26/2012 8:47 AM CDT Body Mass Index Percentile 95.13 % 06/26/2012 8:47 AM CD T Growth Chart: [facility] (Boys, 2-20 Years) documented in this encounter Progress Notes Senthil Jenkins, DO - 06/26/2012 9:02 AM CDT SUBJECTIVE: June 26, 2012: PCP: Matthieu Olsen Murphy Barnes is a 17 year old male who is seen in follow up for neck pain and upper arm fatigue. 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 This patient is accompanied in the office by his mother. Injury: during football practice, gradual onset. No acute traumatic incident or injury recalled. Location of Pain: cervical spine Duration of Pain: 06/12/2012 Rating of Pain: 5/10 Pain is better with: Ice and Rest Pain is worse with: left and right lateral flexion and right and left rotation Treatment so far consists of: Ice Associated Features: tingling sensation in right shoulder occasionally Prior history of related problems: none No interval change in medical history since previous visit. REVIEW OF SYSTEMS: CONSTITUTIONAL:NEGATIVE for fever, chills, change in weight MUSCULOSKELETAL:See HPI above NEURO: NEGATIVE for dizziness or paresthesias BP 106/64 EXAM: GENERAL APPEARANCE: healthy, alert and no distress GAIT: NORMAL NEURO: normal strength and tone, sentation intact, mentation intact, speech normal, DTR symmetrically normal in upper extremities PSYCH: mentation appears normal and affect normal/bright MUSCULOSKELETAL: Cervical Spine Inspection: normal cervical lordosis, no scapular winging Tender: spinous processes, left paracervical muscles, right paracervical muscles Non-tender: occipital nerves, scapula, medial border of scapula Range of Motion: Full ROM of cervical spine Strength: Full strength of all neck and UE muscles ASSESSMENT/PLAN Cervicalgia [723.1] Plan: Cervical pain with bilateral upper arm fatigue. Recommend cervical MRI to r/o cord compression. No contact sports until MRI results known. If negative MRI then may return to football with neck collar on shoulder pads. 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 Weight as of 06/15/12: 206 lb(93.441 kg).. BP completed using cuff size: large Hilary Houser ATC documented in this encounter Plan of Treatment Upcoming Encounters Date Type Specialty Care Team Description 11/04/2022 Office Visit Internal Medicine Marcy Ricketts APRN AIRPORT [employer]PERATIONS OFFICER [address] [place], [place] [address] (Wo rk) documented as of this encounter Visit Diagnoses Diagnosis Cervicalgia - Primary documented in this encounter Care Teams Commercial Credit Lead Relationship Specialty Start Date End Date Matthieu Olsen MD PCP - General 12/15/01 documented as of this encounter
--- OUTSIDE RECORDS SUMMARY | 2022-09-26 20:26 | XMS_ITS | Encounter Summary ---
:1995 Author Organization [place] Address [facility] [place] [address] Care Team Providers Name Role Phone Matthieu Olsen MD Primary Care Provider Unavailable Reason for Visit Reason Comments Neck Pain NEW, neck, gradual onset dur ing football practice, 06/12/2012, numbness and tingling occasionally into r ight shoulder Encounter Details Date Type Department Care Team Description 06/15/2012 Office Visit [facility] Senthil Jenkins (Primary Orthopedic Carl[place], DO Dx) Care-[facility] [address] [facility], [address] [facility] [address] [place], [place] [address] [phone] Social History Tobacco Use Types Packs/Day Years [...] Sign Reading Time Taken Comments Blood Pressure 100/60 06/15/2012 4:17 PM CDT Pulse - - Temperature - - Respiratory Rate - - Oxygen Saturation - - Inhaled Oxygen Concentration - - Weight 93.4 kg (206 lb) 06/15/2012 4:17 PM CDT Height 182.9 cm (6') 06/15/2012 4:17 PM CDT Body Mass Index 27.94 06/15/2012 4:17 PM CDT Body Mass Index Percentile 95.16 % 06/15/2012 4:17 PM CD T Growth Chart: [facility] (Boys, 2-20 Years) documented in this encounter Patient Instructions Patient InstructionsNerissa Phillips - 06/15/2012 7:42 PM CDT . documented in this encounter Progress Notes Senthil Jenkins DO - 06/15/2012 4:19 PM CDT SUBJECTIVE: PCP: Matthieu Olsen Murphy Barnes is a 17 year old male who is seen due to the direction of their ATC Norah Domingo [facility] for neck pain. This patient is accompanied in the office [...] occasionally Prior history of related problems: none Patient's past medical, surgical, social and family histories reviewed on up to date problem list inthe chart. REVIEW OF SYSTEMS: CONSTITUTIONAL:NEGATIVE for fever, chills, change in weight INTEGUMENTARY/SKIN: NEGATIVE for worrisome rashes, moles or lesions MUSCULOSKELETAL:See HPI above NEURO: NEGATIVE for weakness, dizziness or paresthesias BP 100/60 Ht 6' (1.829 m) Wt 206 lb (93.441 kg) BMI 27.94 kg/m2 EXAM: GENERAL APPEARANCE: healthy, alert and no distress GAIT: NORMAL SKIN: no suspicious lesions or rashes NEURO: normal strength and tone, sentation intact, [...] muscles ASSESSMENT/PLAN Cervicalgia [723.1] Plan: Cervical pain without radicular findings likely from sprain. Diagnosis explained and theraputic options discussed. Reassurance given. No activity restrictions. X-RAY INTERPRETATION X-Ray of the cervical spine: 2-views ap and lateral ordered and interpreted in the office today was negative for fracture, subluxation or joint space abnormality. documented in this encounter Nursing Notes 06/15/2012 4:15 PM CDT >> Nerissa Phillips [facility] Jun 15, 2012 4:20 PM Patient presents with: Neck Pain - NEW, neck, gradual onset during football practice, 06/12/2012, numbness and tingling occasionally into right shoulder Initial BP 100/60 Ht 6' (1.829 m) Wt 206 lb (93.441 kg) BMI 27.94 kg/m2 Estimated Body mass index is 27.94 kg/(m^2) as calculated from the following: Height as of this encounter: 6' 0(1.829 m). Weight as of this encounter: 206 lb(93.441 kg).. BP completed using cuff size: regular Nerissa Phillips ATC documented in this encounter Plan of Treatment Upcoming Encounters Date Type Specialty Care Team Description 11/04/2022 Office Visit Internal Medicine Marcy Ricketts APRN FLOOR GRINDER [address] [place], [place] [address] (Wo rk) documented as of this encounter Procedures Procedure Name Priority Date/Time Associated Diagnosis Comme nts XR CERVICAL SPINE Routine 06/15/2012 5:01 PM Cervicalgia Resu lts for this 2/3 VIEWS CDT procedure are i n the results section. documented in this encounter Results X-ray Cervical spine 2-3 vws (06/15/2012 5:01 PM CDT) Anatomical Region Laterality Modality Spine Other Specimen (Source) Anatomical Collection Method Collection Time Re ceived Time Location / / Volume Laterality 06/15/2012 5:01 PM CDT Impressions 06/16/2012 8:40 AM CDT CERVICAL SPINE 2 VIEWS ??Jun 15, 2012 5: 01:00 PM HISTORY: Neck pain. COMPARISON: None. IMPRESSION: Normal. Senthil Jenkins DO [facility]LEE documented in this encounter Visit Diagnoses Diagnosis Cervicalgia - Primary documented in this encounter Care Teams Die Attaching Machine Tender Relationship Specialty Start Date End Date Matthieu Olsen MD PCP - General 12/15/01 documented as of this encounter
--- OUTSIDE RECORDS SUMMARY | 2022-09-26 20:26 | XMS_ITS | Encounter Summary ---
:1995 Author Organization [place] Address [facility] [place] [address] Care Team Providers Name Role Phone Matthieu Olsen MD Primary Care Provider Unavailable Encounter Details Date Type Department Care Team Description 06/06/[address] [facility] Indra Kumar MD [place] [address] [facility] [address] [facility] [place] [address] [facility] [place] [address] [phone] Social History Tobacco Use Types Packs/Day Years [...] Office Visit Internal Medicine Marcy Ricketts APRN [facility] [address] [place], [place] [address] (Wo rk) Scheduled Orders Name Type Priority Associated Diagnoses Order S chedule XR Hip Left G/E 2 Views Imaging Orde red: 06/06/2013 documented as of this encounter Visit Diagnoses Not on filedocumented in this encounter Care Teams Drapery Examiner Relationship Specialty Start Date End Date Matthieu Olsen MD PCP - General 12/15/01 documented as of this encounter
--- OUTSIDE RECORDS SUMMARY | 2022-09-26 20:26 | XMS_ITS | Encounter Summary ---
:1995 Author Organization [place] Address [address] [facility] [place] [address] Care Team Providers Name Role Phone Matthieu Olsen MD Primary Care Provider Unavailable Reason for Visit Reason Comments Chest Pain Encounter Details Date Type Department Care Team Description 02/20/2013 Office Visit [facility] Matthieu Olsen Chest p ain (Primary Dx); Clinic Meghan Hobson MD Screening cholesterol level [address] [place] [address] Social History Tobacco Use Types [...] Sign Reading Time Taken Comments Blood Pressure 128/76 02/20/2013 2:33 PM CDT Pulse - - Temperature 36.7 ??C (98 ??F) 02/20/2013 2:33 PM CDT Respiratory Rate - - Oxygen Saturation - - Inhaled Oxygen Concentration - - Weight 98 kg (216 lb) 02/20/2013 2:33 PM CDT Height 182.9 cm (6') 02/20/2013 2:33 PM CDT Body Mass Index 29.29 02/20/2013 2:33 PM CDT Body Mass Index Percentile 96.31 % 02/20/2013 2:33 PM CD T Growth Chart: [facility] (Boys, 2-20 Years) documented in this encounter Patient Instructions Patient InstructionsSkIan clark - 02/20/2013 2:35 PM CDT Acetaminophen (Tylenol) Doses: For a child [...] encounter Progress Notes Matthieu Olsen MD - 02/20/2013 2:24 PM CDT SUBJECTIVE: Seamus Barnes is a 18 year old male who presents to clinic today for the following health issues: Chest Pain ?? Onset: dull pain and off since 2 weeks ago, had a sharp pain today ?? Description (location/character/radiation/duration): chest pain, tightness in chest, tingling in left hand, anxiety ?? Intensity: severe ?? Accompanying signs and symptoms: Shortness of breath: YES However patient has h/o anxiety disorder and feels that having chest pain made him anxious and feelsthat SOB was related to that Sweating: no Nausea/vomitting: no Palpitations: no Other (fevers/chills/cough/heartburn/lightheadedness): no ?? History (similar episodes/previous evaluation): Anxiety ?? Precipitating or alleviating factors: Worse with exertion: YES- after running a few weeks ago, but since then Worse with breathing: no Related to eating: no Better with burping: no ?? Therapies tried and outcome: None Family history of anxiety disorder in mom. Mom also concerned about cholesterol . Patient Active Problem List Diagnosis ??? POSTCONCUSSION SYNDROME Exam.: Filed Vitals: 02/20/13 1433 BP: 128/76 Temp: 98 ??F (36.7 ??C) TempSrc: Oral Height: 6' (1.829 m) Weight: 216 lb (97.977 kg) General: Well nourished, well developed without [...] swelling or redness Neuro: Appropriate for age. Impression:chest pain. Plan:EKG normal Decision Making:with h/o underlying anxiety disorder,normal exam and normal EKG I don't think pain is due to cardiac or respiratory cause Likely muscular pain Reassurance Follow up if worse or new symptoms develop Cholesterol screen normal-reassured documented in this encounter Nursing Notes 02/20/2013 2:15 PM CDT >> IAN Washburn Feb 20, 2013 2:35 PM Patient presents with: Chest Pain Initial BP 128/76 Temp(Src) 98 ??F (36.7 ??C) (Oral) Ht 6' (1.829 m) Wt 216 lb (97.977 kg) BMI 29.29 kg/m2 Estimated Body mass index is 29.29 kg/(m^2) as calculated from the following: Height as of this encounter: 6' 0(1.829 m). Weight as of this encounter: 216 lb(97.977 kg). BP completed using cuff size: large. Ian Paz CMA ([facility]) documented in this encounter Plan of Treatment Upcoming Encounters Date Type Specialty Care Team Description 11/04/2022 Office Visit Internal Medicine Marcy Ricketts APRN TRANSMISSION INSPECTOR [address] [place], [place] [address] (Wo rk) documented as of this encounter Procedures Procedure Name Priority Date/Time Associated Diagnosis Comme nts CHOLESTEROL Routine 02/20/2013 3:02 PM Screening Results f or this CDT cholesterol level procedure are in the results section. EKG 12-LEAD COMPLETE Routine 02/20/2013 2:51 PM Chest Pain R esults for this W/READ - CLINICS CDT procedure a re in the results section. documented in this encounter Results Cholesterol (02/20/2013 3:02 PM CDT) athologist Signature Cholesterol 161 0 - 200 [facility] mg/dL CLINIC LAB Comment: LDL Cholesterol is the primary guide to therapy. The NCEP recommends further evaluation of: patients with cholesterol greater than 200 mg/dL if additional risk facto rs are present, cholesterol greater than 240 mg/dL, triglycerides greater than 1 50 mg/dL, or HDL less than 40 mg/dL. Specimen Anatomical Collection Method Collection Time Receive d Time (Source) Location / / Volume Laterality Blood specimen 02/20/2013 3:02 PM 013 3:07 (specimen) CDT PM CDT Matthieu Olsen MD LAB - BLOOD ORDERABLES Performing Organization Address City/State/ZIP Code Phon e Number [facility] [address] [place] [address] [facility] [address] [place] [address] EKG 12-lead complete w/read - Clinics (02/20/2013 2:51 PM CDT) Narrative This result has an attachment that is no t available. Matthieu Olsen MD ECG ORDERABLES documented in this encounter Visit Diagnoses Diagnosis Chest pain - Primary Chest pain, unspecified Screening cholesterol level Screening for lipoid disorders documented in this encounter Care Teams Unscrambler Relationship Specialty Start Date End Date Matthieu Olsen MD PCP - General 12/15/01 documented as of this encounter
--- OUTSIDE RECORDS SUMMARY | 2022-09-26 20:26 | XMS_ITS | Encounter Summary ---
:1995 Author Organization [place] Address [facility] [place] [address] Care Team Providers Name Role Phone Matthieu Olsen MD Primary Care Provider Unavailable Reason for Visit Reason Onset Date Comments Medication Request 05/29/2013 Encounter Details Date Type Department Care Team Description 05/29/2013 Telephone [facility] Matthieu Olsen M edication Request Clinic Meghan MEDEIROS [address] [place] [address] Social History Tobacco Use Types [...] this encounter Miscellaneous Notes Telephone Encounter - Matthieu Olsen MD - 06/04/2013 2:30 PM CDT Still c/o pain and soreness at the tip of the urethra sexuaully active GC,chlamydia and trichomonas screen negative 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 Please advise. Raven Nelson R.N. Telephone Encounter - Kandace Feng - 05/29/2013 4:51 PM CDT Mom calling--pt told her that the tip of his penis is still red and that MD was going to prescribe something if the symptoms continued. Mom is unsure what was going to be prescribed and also was not aware of what labs pt was tested for, but only aware that he had lab tests done. Pt also has not seen aurologist as recommended. Please advise. Kandace Feng RN documented in this encounter Plan of Treatment Upcoming Encounters Date Type Specialty Care Team Description 11/04/2022 Office Visit Internal Medicine Marcy Ricketts APRN COMPENSATION EXPERT [address] [place], [place] [address] (Wo rk) documented as of this encounter Visit Diagnoses Diagnosis Urethritis, unspecified - Primary documented in this encounter Care Teams Branch Account Executive Relationship Specialty Start Date End Date Mathtieu Olsen MD PCP - General 12/15/01 documented as of this encounter
--- OUTSIDE RECORDS SUMMARY | 2022-09-26 20:26 | XMS_ITS | Encounter Summary ---
:1995 Author Organization [place] Address [facility] [place] [address] Care Team Providers Name Role Phone Matthieu Olsen MD Primary Care Provider Unavailable Reason for Visit Reason Onset Date Comments Medication Request 06/11/2013 Encounter Details Date Type Department Care Team Description 06/11/2013 Telephone [facility] Matthieu Olsen M edication Request Clinic Meghan MEDEIROS [address] [place] [address] Social History Tobacco Use Types [...] this encounter Miscellaneous Notes Telephone Encounter - Raven Nelson - 06/11/2013 4:05 PM CDT Mom notified of rx approval. Raven Nelson R.N. Telephone Encounter - Indra Kumar MD - 06/11/2013 3:50 PM CDT rx sent for triamcinolone. Telephone Encounter - Raven Nelson - 06/11/2013 3:20 PM CDT Mom explains that pt saw Dr Kumar last Tuesday re irritation of penis. He was given RX to use & told to call back if not improving. Mom reports no improvement. Requests rx for new medication. Please advise. Raven Nelson R.N. documented in this encounter Plan of Treatment Upcoming Encounters Date Type Specialty Care Team Description 11/04/2022 Office Visit Internal Medicine Marcy Ricketts APRN METALIZING MACHINE OPERATOR AUTOMATIC [address] [place], [place] [address] (Wo rk) documented as of this encounter Visit Diagnoses Diagnosis Rash - Primary Rash and other nonspecific skin eruption documented in this encounter Care Teams Videotape Editor Relationship Specialty Start Date End Date Matthieu Olsen MD PCP - General 12/15/01 documented as of this encounter
--- OUTSIDE RECORDS SUMMARY | 2022-09-26 20:26 | XMS_ITS | Encounter Summary ---
:1995 Author Organization [place] Address [facility] [place] [address] Care Team Providers Name Role Phone Matthieu Olsen MD Primary Care Provider Unavailable Reason for Visit Reason Onset Date Comments Medication Problem 01/21/2011 rash Encounter Details Date Type Department Care Team Description 01/21/2011 Refill [facility] Matthieu Olsen M edication Problem Clinic Meghan MEDEIROS (rash) [address] [place] [address] Social History Tobacco Use Types [...] this encounter Miscellaneous Notes Telephone Encounter - Maria Luz Cornelius - 01/22/2011 11:15 AM CDT Pharm informed of directions. Will advise mom. Telephone Encounter - Matthieu Olsen - 01/22/2011 9:25 AM CDT Please advise pt/mom that I have faxed and Rx for amoxicillin and to use it bid if inflamed pustularacne Or once a day if acne mild Telephone Encounter - Estelita Mcclain - 01/21/2011 4:33 PM CDT Pt and mother called stating that pt has developed generalized itching and rash when he scratches his skin Pt stopped minocin on 01/18/11 when itching developed and it is improving Pt is neg for breathing difficulty Pt mother has been giving pt Benadryl as well Please advise for alternate med documented in this encounter Plan of Treatment Upcoming Encounters Date Type Specialty Care Team Description 11/04/2022 Office Visit Internal Medicine Marcy Ricketts APRN CONTRACTS SPECIALIST [address] [place], [place] [address] (Wo rk) documented as of this encounter Visit Diagnoses Diagnosis Acne - Primary Other acne documented in this encounter Care Teams Tube Room Supervisor Relationship Specialty Start Date End Date Matthieu Olsen MD PCP - General 12/15/01 documented as of this encounter
--- OUTSIDE RECORDS SUMMARY | 2022-09-26 20:26 | XMS_ITS | Encounter Summary ---
:1995 Author Organization [place] Address [facility] [place] [address] Care Team Providers Name Role Phone Matthieu Olsen MD Primary Care Provider Unavailable Reason for Visit Reason Onset Date Comments Results 06/27/2012 Cervical spine MRI r pedro pablo Encounter Details Date Type Department Care Team Description 06/27/2012 Telephone [facility] Senthil Jenkins R esults (Cervical Orthopedic DO spine MRI results) Care-[facility] [address] [facility], [address] [facility] [address] [place] [address] [place], [place] [phone] (Wo rk) [address] [phone] Social History Tobacco Use Types Packs/Day Years [...] this encounter Miscellaneous Notes Telephone Encounter - Senthil Jenkins DO - 06/27/2012 3:41 PM CDT MRI of the cervical spine results reviewed and discussed with the patient: IMPRESSION: Bone marrow edema suggesting either bone bruises or nondisplaced fractures of the spinous process of T1 and of the right posterior first rib. Limited CT scan is suggested for further evaluation to confirm fracture and rule out destructive processes. Diagnosis explained and theraputic options discussed. Recheck in [address] scan if painstill persist. documented in this encounter Plan of Treatment Upcoming Encounters Date Type Specialty Care Team Description 11/04/2022 Office Visit Internal Medicine Marcy iRcketts APRN SMOKING PIPE COATER [address] [place], [place] [address] (Wo rk) documented as of this encounter Visit Diagnoses Not on filedocumented in this encounter Care Teams Gill Net Stringer Relationship Specialty Start Date End Date Matthieu Olsen MD PCP - General 12/15/01 documented as of this encounter
--- OUTSIDE RECORDS SUMMARY | 2022-09-26 20:26 | XMS_ITS | Encounter Summary ---
:1995 Author Organization [place] Address [address] [facility] [place] [address] Care Team Providers Name Role Phone Matthieu Olsen MD Primary Care Provider Unavailable Reason for Visit Reason Comments Well Child 18 year px, sports phys Encounter Details Date Type Department Care Team Description 06/06/2013 Office Visit [facility] Indra Kumar Rout ine infant or child health check (Primary Dx); Clinic Meghan MEDEIROS Hip joint noise; [address] [place] [address] Cutaneous candidiasis; [place], [place] Jock itch; [place] [address] Rash; [address] Obesity [phone] Social History Tobacco Use Types Packs/Day Years [...] Sign Reading Time Taken Comments Blood Pressure 102/50 06/06/2013 1:53 PM CDT Pulse - - Temperature 36.6 ??C (97.9 ??F) 06/06/2013 1:53 PM CDT Respiratory Rate - - Oxygen Saturation - - Inhaled Oxygen Concentration - - Weight 105.2 kg (232 lb) 06/06/2013 1:53 PM CDT Height 183.5 cm (6' 0.25) 06/06/2013 1:53 PM CDT Body Mass Index 31.25 06/06/2013 1:53 PM CDT Body Mass Index Percentile 97.80 % 06/06/2013 1:53 PM CD T Growth Chart: [facility] (Boys, 2-20 Years) documented in this encounter Patient Instructions Patient InstructionsSoumya Quinonez - 06/06/2013 1:57 PM CDT Acetaminophen (Tylenol) Doses: For a [...] needed documented in this encounter Progress Notes Indra Kumar MD - 06/06/2013 1:47 PM CDT Seamus Barnes is a 18 year old male here for a routine health maintenance visit, accompanied byhis self. QUESTIONS/CONCERNS: see note below FAMILY/ SOCIAL HISTORY Child lives with: mother, father and brother Recent family changes/social stressors: none noted Family History: No changes since last physical Language(s) spoken at home: Martiniquais MNVFC does apply for the following reason: Insured: Has insurance that covers the cost of all vaccines (Not [place]VFC elligible because insurance already covers all vaccines) ENVIRONMENTAL RISK ASSESSMENT Is your child around anyone who smokes? YES Father smokes outside Seat belt? YES Bike/sport helmet? N/A TB exposure? NO Pets in the home? YES 1 dog Guns/firearms in the home? YES, Trigger locks present? YES, Ammunition separate from firearm: YES Water source: city water CHICKEN POX HISTORY: Patient has had chicken pox TEEN RISK SCREEN: Form not indicated at this visit. VISION No concerns HEARING No concerns REQUIRED VITAL SIGNS COMPLETED: yes There were no vitals taken for this visit. No height on file. No weight on file. No unique date with height and weight on file. Sports Questionnaire: School: [employer] Grade: 12 th Sports: Football Staff signature: oSumya Quinonez LPN HEALTH HISTORY SINCE LAST VISIT No surgery, major illness or injury since last physical exam Cardiac risk assessment: none Immunization History Administered Date(s) Administered ??? DPT/HIB 1996, 1996, 1996 ? ? DTAP (<7y) 1996, 1996, 1996, 05/25/1997, 05/15/2001 ??? HIB 1996, 1996, 1996, 05/25/1997 ??? Hepatitis A 05/02/2013 ??? Hepatitis B 1996, 1996, 1996 ??? IPV 1996, 1996, 1996, 05/15/2001 ??? Influenza 09/05/2007 ??? MMR 05/25/1997, 05/15/2001 ??? Meningococcal (Menactra) 06/12/2007 ??? OPV 1996, 1996, 1996 ??? TDAP (BOOSTRIX AGES 10-64) 06/12/2007 ? ? TRIHIBIT (DTAP/HIB, <7y) 05/25/1997 ??? Varicella Not Indicated - By Hx 08/14/1998 Allergies Allergen Reactions ??? Minocycline Itching and Rash DAILY ACTIVITIES NUTRITION: good appetite, eats variety of foods and junk food SLEEP No concerns, sleeps well through night ELIMINATION Normal bowel movements and Normal urination EXERCISE/ RECREATION Organized / Team sports: football and weight training ACTIVITIES: Age appropriate activities Rides bike (helmet advised) TV/ Media: < 2 hours/ day EDUCATION / EMPLOYMENT Concerns: no School performance / Academic skills: doing well in school MENTAL HEALTH Concerns: Depression: well controlled SEXUALITY Dating: yes- Sexual activity: yes- Sexual orientation / partner(s): opposite sex History of STD: no control / safe sex practices: condoms SUBSTANCE ABUSE Smoking: no Alcohol: no Drugs: no VISION: For details see above, normal HEARING: For details see above, normal ROS GENERAL: See health history, nutrition and daily activities HEENT: Hearing/vision: see above. No eye redness/discharge, nasal congestion, sneezing, snoring RESP: No cough, wheezing, SOB CV: No cyanosis, palpitations, syncope GI: See nutrition and elimination : See elimination MS: No swelling, arthralgia, weakness, gait problem NEURO: No headaches PSYCH: See development and behavior, or mental health EXAM GENERAL: Active, alert, in no acute distress. SKIN: dry erythematous skin on glans near urethral meatus, scrotum. No ulcers or crusted lesions HEAD: Normocephalic EYES: Sharp optic discs. Pupils equal, round, reactive, Extraocular muscles intact. Normal conjunctivae. EARS: Normal canals. Tympanic membranes are normal; ames and translucent. NOSE: Normal without discharge. MOUTH/THROAT: Clear. No oral lesions. Teeth without obvious abnormalities. NECK: Supple, no masses. No thyromegaly. LYMPH NODES: No adenopathy LUNGS: Clear. No rales, rhonchi, wheezing or retractions HEART: Regular rhythm. Normal S1/S2. No murmurs. Normal pulses. ABDOMEN: Soft, non-tender, not distended, no masses or hepatosplenomegaly. Bowel sounds normal. NEUROLOGIC: No focal findings. Cranial nerves grossly intact: DTR's normal. Normal gait, strength and tone BACK: Spine is straight, no scoliosis. EXTREMITIES: Full range of motion, no deformities -M: Normal male external genitalia. Quinn stage 5, both testes descended, no hernia. 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 Well teen with normal growth and development PLAN No unique date with height and weight on file. OBESITY ACTION PLAN ?? Exercise Counseling Performed ?? Nutrition Counseling Performed 5210 ?? 5. 5 servings of fruits or vegetables per day ?? 2. Less than 2 hours of television per day ?? 1. At least 1 hour of active play per day ?? 0. 0 sugary drinks (juice, pop, punch, sports drinks) Immunizations [facility] Counseling provided regarding the benefits and risks related to the vaccinesordered today. I reviewed the signs and symptoms of adverse effects and when to seek medical care ifthey should arise. See other orders in EpicCare Referrals/Ongoing Specialty care: No Dental visit recommended: Continue care every 6 months RTC: 19 year RHM visit Strongly recommended hpv vaccine. Pt fine with doing it but mother declined Additional Note: Seamus Barnes is a 18 year old male here with ongoing jock itch. Knows he is overweight. Worse with football season. Has tried otc antifungals with minimal relief. Tip of penis the worst and side of scrotum. Did not use rx antifungal cream written for me this past year. Got better without it and worse again now. No bleeding, some dysuria when skin is irritated. No blisters or sores. No hsv hx.No urinary retention, no frequency. Also with hip pop on knee exam. Pt says has done that for years,especially on L side. No pain, no limitation of movement. Able to do football activities See above for full hx, ros and exam Xray hip neg for fx, bony changes A/P Skin inflammation tx as candidiasis with ketoconazole If not improving by beginning of next week then call back and will send rx for steroid cream. Possible irritation and chaffing only Hip noise: xray done given obesity but normal. Reassurance given if no physical problems other than noise documented in this encounter Nursing Notes 06/06/2013 2:00 PM CDT >> SOUMYA QUINONEZ Wed Jun 06, 2013 1:58 PM Patient presents with: Well Child - 18 year px, sports phys initial BP 102/50 Temp 97.9 ??F (36.6 ??C) (Oral) Ht 6' 0.25 (1.835 m) Wt 232 lb (105.235 kg) BMI 31.25 kg/m2 Estimated Body mass index is 31.25 kg/(m^2) as calculated from the following: Height as of this encounter: 6' .25(1.835 m). Weight as of this encounter: 232 lb(105.235 kg).. bp completed using cuff size large documented in this encounter Plan of Treatment Upcoming Encounters Date Type Specialty Care Team Description 11/04/2022 Office Visit Internal Medicine Marcy Ricketts APRN RESIN FILTERER [address] [place], [place] [address] (Wo rk) documented as of this encounter Procedures Procedure Name Priority Date/Time Associated Diagnosis Comme nts XR HIP LEFT 2-3 06/06/2013 2:49 PM Result s for this VIEWS CDT procedure are i n the results section. documented in this encounter Results XR Hip Left G/E 2 Views (06/06/2013 2:49 PM CDT) Anatomical Region Laterality Modality Abdomen/Pelvis, Left Hip Left Other Specimen (Source) Anatomical Collection Method Collection Time Re ceived Time Location / / Volume Laterality 06/06/2013 2:49 PM CDT Impressions 06/06/2013 3:00 PM CDT IMPRESSION: The hip and visualized portion of the osseous pelvis appear within normal limits for age. JUMANA MORGAN MD Narrative 06/06/2013 3:00 PM CDT HIP G/E 2 VIEWS LEFT* 06/06/2013 2:49 PM HISTORY: Hip joint noise Procedure Note Cherelle Morgan MD - 06/06/2013Formatt ing of this note might be different from the original. HIP G/E 2 VIEWS LEFT* 06/06/2013 2:49 PM HISTORY: Hip joint noise IMPRESSION IMPRESSION: The hip and visualized porti on of the osseous pelvis appear within normal limits for age. JUMANA MORGAN MD Indra Kumar MD IMG DIAGNOSTIC IMAGING ORDER CARLEE documented in this encounter Visit Diagnoses Diagnosis Routine or child health check - P rimary Hip joint noise Other symptoms referable to pelvic joint Cutaneous candidiasis Candidiasis of skin and nails Jock itch Dermatophytosis of groin and perianal ar ea Rash Rash and other nonspecific skin eruption Obesity Obesity, unspecified documented in this encounter Care Teams Armor Reconnaissance Specialist Relationship Specialty Start Date End Date Matthieu Olsen MD PCP - General 12/15/01 documented as of this encounter
--- OUTSIDE RECORDS SUMMARY | 2022-09-26 20:26 | XMS_ITS | Encounter Summary ---
:1995 Author Organization [place] Address [facility] [place] [address] Care Team Providers Name Role Phone Matthieu Olsen MD Primary Care Provider Unavailable Reason for Visit Reason Comments Neck Injury f/u, last seen 06/26/2012, mi ld to moderate improvement Encounter Details Date Type Department Care Team Description 07/06/2012 Office Visit [place] [facility] Senthil Jenkins Stress fra cture of Orthopedic [place], DO other bone (Primary [facility] [address] [facility], [address] [facility] [address] [place] [address] [phone] Social History Tobacco Use Types Packs/Day Years [...] Reading Time Taken Comments Blood Pressure 90/62 07/06/2012 2:59 PM CDT Pulse - - Temperature - - Respiratory Rate - - Oxygen Saturation - - Inhaled Oxygen Concentration - - Weight 93.4 kg (206 lb) 07/06/2012 2:59 PM CDT Height 182.9 cm (6') 07/06/2012 2:59 PM CDT Body Mass Index 27.94 07/06/2012 2:59 PM CDT Body Mass Index Percentile 95.10 % 07/06/2012 2:59 PM CD T Growth Chart: [facility] (Boys, 2-20 Years) documented in this encounter Patient Instructions Patient InstructionsNerissa Phillips - 07/06/2012 3:47 PM CDT . documented in this encounter Progress Notes Senthil Jenkins DO - 07/06/2012 3:01 PM CDT SUBJECTIVE: July 06, 2012: PCP: Matthieu Olsen Murphy Barnes is a 17 year old male who is seen in follow up for neck pain and upper arm fatigue. Patient notes mild to moderate decrease in symptoms. He has been resting to treat it. This patientis accompanied in the office by his mother. [...] NEURO: NEGATIVE for dizziness or paresthesias BP 90/62 Ht 6' (1.829 m) Wt 206 lb [...] of all neck and UE muscles ASSESSMENT/PLAN Stress fracture of other bone (primary encounter diagnosis) Plan: Cervical pain with MRI showing a stress reaction at the right 1st rib and spinous process of T1. No pain symptoms at rest or with ADL's. May return to football with neck collar on shoulder pads in one week if remains asymptomatic with non-contact conditioning drills. documented in this encounter Nursing Notes 07/06/2012 2:45 PM CDT >> Nerissa Phillips Jes Jul 06, 2012 3:03 PM Patient presents with: Neck Injury - f/u, last seen 06/26/2012, mild to moderate improvement Initial BP 90/62 Ht 6' (1.829 m) Wt 206 lb [...] Office Visit Internal Medicine Marcy Ricketts APRN LGSW [address] [place], [place] [address] (Wo rk) documented as of this encounter Visit Diagnoses Diagnosis Stress fracture of other bone - Primary documented in this encounter Care Teams Direct Entry Midwife Relationship Specialty Start Date End Date Matthieu Olsen MD PCP - General 12/15/01 documented as of this encounter
--- OUTSIDE RECORDS SUMMARY | 2022-09-26 20:26 | XMS_ITS | Encounter Summary ---
:1995 Author Organization [place] Address [facility] [place] [address] Care Team Providers Name Role Phone Annalisa Silva SEAMAN OFFICER Primary Care Provider [phone] Reason for Visit Reason Onset Date Comments Results 08/27/2015 Encounter Details Date Type Department Care Team Description 08/27/2015 Telephone [facility] Annalisa Silva, BETTY Results [place] [address] [facility] [address] [place] [address] [place] [address] [phone] Social History Tobacco Use Types Packs/Day Years [...] Telephone Encounter - Maxine Cornelius RN - 08/27/2015 2:08 PM CDT Pt informed of 's message below. Telephone Encounter - Lexy Rachel MA - 08/27/2015 9:07 AM CDT Voice mail left for patient to call back, please relay message. Quiana RACHEL CMA Telephone Encounter - Annalisa Silva NP - 08/27/2015 6:58 AM CDT Please notify pt that thyroid level is normal. No further f/u needed Annalisa Silva CNP documented in this encounter Plan of Treatment Upcoming Encounters Date Type Specialty Care Team Description 11/04/2022 Office Visit Internal Medicine Marcy Ricketts APRN SMALL BUSINESS DIRECTOR [address] [place], [place] [address] (Wo rk) documented as of this encounter Visit Diagnoses Not on filedocumented in this encounter Care Teams Floatlight Loading Supervisor Relationship Specialty Start Date End Date Annalisa Silva NP PCP - General Nurse Practitioner - Adult 08/26/15 [address] [place] [address] documented as of this encounter
--- OUTSIDE RECORDS SUMMARY | 2022-09-26 20:26 | XMS_ITS | Encounter Summary ---
:1995 Author Organization [place] Address [address] [facility] [place] [address] Care Team Providers Name Role Phone Annalisa Silva GAS STATION MANAGER Primary Care Provider Reason for Visit Reason Comments Urgent Care Ear Problem Encounter Details Date Type Department Care Team Description 04/11/2016 Office Visit [facility] Adarsh Craft, Ear pa in, right Urgent Care Lindsay ballesteros MD (Primary Dx) [address] [place] [address] Social History Tobacco Use Types Packs/Day Years [...] Sign Reading Time Taken Comments Blood Pressure 110/70 04/11/2016 11:53 AM CDT Pulse 104 04/11/2016 11:53 AM CDT Temperature 36.8 ??C (98.2 ??F) 04/11/2016 11:53 AM CDT Respiratory Rate 16 04/11/2016 11:53 AM CDT Oxygen Saturation 99% 04/11/2016 11:53 AM CDT Inhaled Oxygen Concentration - - Weight 131.5 kg (290 lb) 04/11/2016 11:53 AM CDT Height - - Body Mass Index 36.25 04/10/2016 4:16 AM CDT documented in this encounter Progress Notes Adarsh Craft MD - 04/11/2016 11:55 AM CDT SUBJECTIVE: Seamus Barnes is a 21 year old male who presents to clinic today for the following health issues: Patient is here for ear pain - has been in the hospital for a fever BP 110/70 mmHg Pulse 104 Temp(Src) 98.2 ??F (36.8 ??C) (Oral) Resp 16 Wt 290 lb (131.543 kg) SpO2 99% Questioned patient about current smoking habits. Pt. has never smoked. Problem list and histories reviewed & adjusted, as indicated. Additional history: Patient Active Problem List Diagnosis ??? Obesity ??? Pneumonia No past surgical history on file. History Substance Use Topics ??? Smoking status: Passive Smoke Exposure - Never Smoker ??? Smokeless tobacco: Never Used Comment: dad smokes outside ??? Alcohol Use: No Family History Problem Relation Age of Onset ??? Family History Negative Mother ??? Family History Negative Father ROS: Constitutional, HEENT, cardiovascular, pulmonary, gi and gu systems are negative, except as otherwise noted. OBJECTIVE: BP 110/70 mmHg Pulse 104 Temp(Src) 98.2 ??F (36.8 ??C) (Oral) Resp 16 Wt 290 lb (131.543 kg) SpO2 99% Body mass index is 36.25 kg/(m^2). GENERAL: alert and mild distress HENT: normal cephalic/atraumatic, right ear: erythematous, nose and mouth without ulcers or lesions,oropharynx clear and oral mucous membranes moist NECK: bilateral anterior cervical adenopathy, no asymmetry, masses, or scars and [...] defects noted, no edema Diagnostic Test Results: WBC 6.8 04/14/2016 RBC 4.00 04/14/2016 HGB 13.1 04/14/2016 HCT 37.3 04/14/2016 No components found with this name: mct MCV 93 04/14/2016 MCH 32.8 04/14/2016 MCHC 35.1 04/14/2016 RDW 12.9 04/14/2016 PLT 195 04/14/2016 ASSESSMENT/PLAN: ICD-10-CM 1. Ear pain, right H92.01 CBC with platelets and differential DISCONTINUED: cefdinir (OMNICEF) 300 MG capsule 21-year-old with an otitis media. This not appear to have a systemic infection no fever white count appears normal. Follow up with your primary care within the next 10 days if not improving or in seeming to be getting worse as soon as possible Adarsh Craft MD [facility] documented in this encounter Nursing Notes Deedee Hui CMA - 04/11/2016 11:55 AM CDT Please see the progress note for documentation on this office visit documented in this encounter Plan of Treatment Upcoming Encounters Date Type Specialty Care Team Description 11/04/2022 Office Visit Internal Medicine Marcy Ricketts APRN INSTRUCTOR MODELING [address] [place], [place] [address] (Wo rk) documented as of this encounter Procedures Procedure Name Priority Date/Time Associated Comments Diagnosis CBC WITH PLATELETS & Routine 04/11/2016 12:19 Ear pain, right Results for this DIFFERENTIAL PM CDT procedure are i n the results section. documented in this encounter Results (ABNORMAL) CBC with platelets and differential (04/11/2016 12:19 PM CDT) P athologist Signature WBC 10.0 4.0 - 11.0 [place] 10e9/L [facility] Comment: Verified by smear review RBC Count 4.36 (L) 4.4 - 5.9 10e12/L [facility] Comment: Results confirmed by repeat elinor t Hemoglobin 14.5 13.3 - 17.7 g/dL [facility] Hematocrit 41.3 40.0 - 53.0 % [facility] MCV 95 78 - 100 fl [facility] MCH 33.3 (H) 26.5 - 33.0 pg [facility] Comment: Results confirmed by repeat elinor t MCHC 35.1 31.5 - 36.5 g/dL [facility] ICS [place] RDW 12.2 10.0 - 15.0 % [facility] Platelet Count 138 (L) 150 - 450 10e9/L [facility] Comment: Results confirmed by repeat elinor t Diff Method Automated Method [facility] % Neutrophils 80.5 % [facility] Comment: Verified by smear review % Lymphocytes 10.0 % [facility] % Monocytes 9.4 % [facility] % Eosinophils 0.0 % [facility] % Basophils 0.1 % [facility] Absolute Neutrophil 8.1 1.6 - 8.3 10e9/L [facility] Absolute Lymphocytes 1.0 0.8 - 5.3 10e9/L [facility] Absolute Monocytes 0.9 0.0 - 1.3 10e9/L [facility] Absolute Eosinophils 0.0 0.0 - 0.7 10e9/L [facility] Absolute Basophils 0.0 0.0 - 0.2 10e9/L [facility] Specimen Anatomical Collection Method Collection Time Receive d Time (Source) Location / / Volume Laterality Blood specimen 04/11/2016 12:19 6 (specimen) PM CDT 12:20 PM CDT Adarsh Craft MD LAB - BLOOD ORDERABLES Performing Organization Address City/State/ZIP Code Phon e Number [facility] [address] [place] [address] documented in this encounter Visit Diagnoses Diagnosis Ear pain, right - Primary documented in this encounter Care Teams Service Delivery Supervisor Relationship Specialty Start Date End Date Annalisa Silva NP PCP - General Nurse Practitioner - Adult 08/26/15 [address] [place] [address] documented as of this encounter
--- OUTSIDE RECORDS SUMMARY | 2022-09-26 20:26 | XMS_ITS | Encounter Summary ---
:1995 Author Organization [place] Address [address] [facility] [place] [address] Care Team Providers Name Role Phone Matthieu Olsen MD Primary Care Provider Unavailable Reason for Visit Reason Onset Date Comments Patient Request 08/10/2012 Encounter Details Date Type Department Care Team Description 08/10/2012 Telephone [place] [facility] Senthil Jenkins DO Patient Request Orthopedic [facility] Care-[facility] [address] [place] [address] [address] [facility] [place] [address] Social History Tobacco Use Types Packs/Day Years [...] this encounter Miscellaneous Notes Telephone Encounter - Nerissa Phillips - 08/10/2012 6:25 PM CDT Patient was called and was notified via Screen[employer] message that it is OK to remove the cowboy collar from his shoulder pads. He was told that a letter had been sent to Norah [place] [employer] via e-mail. No physician action needed. Nerissa Phillips ATC Telephone Encounter - Alan Nerissa - 08/10/2012 4:44 PM CDT Patient called to ask if he can take the cowboy collar off of his shoulder pads. He states that he has no pain. Please advise. He can be reached at [phone]. Nerissa Phillips ATC documented in this encounter Plan of Treatment Upcoming Encounters Date Type Specialty Care Team Description 11/04/2022 Office Visit Internal Medicine Marcy Ricketts APRN MANUFACTURING ENGINEERING PROFESSOR [address] [place], [place] [address] (Wo rk) documented as of this encounter Visit Diagnoses Not on filedocumented in this encounter Care Teams Delivery Representative Relationship Specialty Start Date End Date Matthieu Olsen MD PCP - General 12/15/01 documented as of this encounter
--- OUTSIDE RECORDS SUMMARY | 2022-09-26 20:26 | XMS_ITS | Encounter Summary ---
:1995 Author Organization [place] Address [facility] [place] [address] Care Team Providers Name Role Phone Matthieu Olsen MD Primary Care Provider Unavailable Reason for Visit Reason Comments Derm Problem red itchy irritated skin on penis near testicles Encounter Details Date Type Department Care Team Description 05/02/2013 Office Visit [facility] Chato Haque Joc k itch (Primary [facility] [place] Dx) [address] [place] [address] [place] [address] (Wo rk) Social History Tobacco Use Types [...] Sign Reading Time Taken Comments Blood Pressure 100/68 05/02/2013 11:36 AM CDT Pulse - - Temperature 36.6 ??C (97.8 ??F) 05/02/2013 11:36 AM CDT Respiratory Rate - - Oxygen Saturation - - Inhaled Oxygen Concentration - - Weight 101.6 kg (224 lb) 05/02/2013 11:36 AM CDT Height 183.5 cm (6' 0.25) 05/02/2013 11:36 AM CDT Body Mass Index 30.17 05/02/2013 11:36 AM CDT Body Mass Index Percentile 97.05 % 05/02/2013 11:36 AM C DT Growth Chart: [facility] (Boys, 2-20 Years) documented in this encounter Patient Instructions Patient InstructionsChato Haque MD - 05/02/2013 11:50 AM CDT Recommend Vaseline prior to work outs to prevent friction. Roomy drawers at other times. Lotrimin twice a day till rash gone one week. documented in this encounter Progress Notes Chato Haque MD - 05/02/2013 11:38 AM CDT SUBJECTIVE: Seamus Barnes is a 18 year old male who presents to clinic today for the following health issues: Red itchy irritated skin on penis near testicles x few days, Hx of same sxs few months ago Red itchy areas for three days. Soaking in apple cider vinger and then some Lotrimin. Seems to have helped the itching some. Never sexually active. No pain urination No history of UTI (insistent) No fever. Activity and appetite normal. Objective: BP 100/68 Temp 97.8 ??F (36.6 ??C) Ht 6' 0.25 (1.835 m) Wt 224 lb (101.606 kg) BMI 30.17 kg/m2 Abdomen normal. No cva Penis normal appearance. Some very mild red tint inferior aspect lower penis and on scrotum. ASSESSMENT: Candidal rash (jock itch). PLAN: Continue lotrimin. Check ua Follow up if not resolving 2 weeks. documented in this encounter Nursing Notes 05/02/2013 11:30 AM CDT >> RAUDEL ARGUETA Azalia May 02, 2013 11:40 AM Patient presents with: Derm Problem - red itchy irritated skin on penis near testicles Initial BP 100/68 Temp 97.8 ??F (36.6 ??C) Ht 6' 0.25 (1.835 m) Wt 224 lb (101.606 kg) BMI 30.17 kg/m2 Estimated Body mass index is 30.17 kg/(m^2) as calculated from the following: Height as of this encounter: 6' .25(1.835 m). Weight as of this encounter: 224 lb(101.606 kg). BP completed using cuff size: large documented in this encounter Plan of Treatment Upcoming Encounters Date Type Specialty Care Team Description 11/04/2022 Office Visit Internal Medicine Marcy Ricketts APRN FUSE COILER [address] [place], [place] [address] (Wo rk) documented as of this encounter Visit Diagnoses Diagnosis Jock itch - Primary Dermatophytosis of groin and perianal ar ea documented in this encounter Care Teams Evp Relationship Specialty Start Date End Date Matthieu Olsen MD PCP - General 12/15/01 documented as of this encounter
--- OUTSIDE RECORDS SUMMARY | 2022-09-26 20:26 | XMS_ITS | Encounter Summary ---
:1995 Author Organization [place] Address [address] [place] [address] Care Team Providers Name Role Phone Annalisa Silva LARGE ENGINE ASSEMBLER Primary Care Provider [phone] Reason for Visit Reason Comments Musculoskeletal Problem patient was seen at in [facility] ear problem,they told him to follow up with because his neck was swollen and to check his thyroid. Encounter Details Date Type Department Care Team Description 08/26/2015 [facility] Meghan Yousif NP [address] [place] [address] [place], [place] [address] [phone] Social History Tobacco Use Types Packs/Day Years [...] Sign Reading Time Taken Comments Blood Pressure 124/82 08/26/2015 2:24 PM CDT Pulse 52 08/26/2015 2:24 PM CDT Temperature 36.4 ??C (97.6 ??F) 08/26/2015 2:24 PM CDT Respiratory Rate 20 08/26/2015 2:24 PM CDT Oxygen Saturation 99% 08/26/2015 2:24 PM CDT Inhaled Oxygen Concentration - - Weight 125.7 kg (277 lb 3.2 oz) 08/26/2015 2:24 PM CDT Height 188 cm (6' 2) 08/26/2015 2:24 PM CDT Body Mass Index 35.59 08/26/2015 2:24 PM CDT documented in this encounter Patient Instructions Patient InstructionsAnnalisa Silva NP - 08/26/2015 2:37 PM CDT Watch the weight for BMI < 25-30 Annalisa Silva CNP documented in this encounter Progress Notes Annalisa Silva NP - 08/26/2015 2:26 PM CDT SUBJECTIVE: Seamus Barnes is a 20 year old male who presents to clinic today for the following health issues: Large thyroid gland ?? Duration: recently noted by UC provider ?? Description (location/character/radiation): enlarged thyroid ?? Intensity: mild ?? Accompanying signs and symptoms: pt admits fatigue and wt gain, but may be due to college lifestyle. ?? History (similar episodes/previous evaluation): None ?? Precipitating or alleviating factors: None ?? Therapies tried and outcome: None Problem list and histories reviewed & adjusted, as indicated. Additional history: as documented ROS: Constitutional, HEENT, cardiovascular, pulmonary, gi and gu systems are negative, except as otherwise noted. OBJECTIVE: BP 124/82 mmHg Pulse 52 Temp(Src) 97.6 ??F (36.4 ??C) (Oral) Resp 20 Ht 6' 2 (1.88 m) Wt 277 lb 3.2 oz (125.737 kg) BMI 35.58 kg/m2 SpO2 99% Body mass index is 35.58 kg/(m^2). GENERAL: healthy, alert and no distress NECK: no adenopathy, no asymmetry, masses, or scars and thyroid normal to palpation RESP: lungs clear to auscultation - no rales, rhonchi or wheezes CV: regular rate and rhythm, normal S1 S2, no S3 or S4, no murmur, click or rub, no peripheral edemaand peripheral pulses strong NEURO: Normal strength and tone, mentation intact and speech normal NEURO: DTR intact ASSESSMENT/PLAN: ICD-10-CM 1. Goiter E04.9 TSH with free T4 reflex Patient Instructions Watch the weight for BMI < 25-30 Annalisa Silva NP [facility] documented in this encounter Nursing Notes Lexy Henry MA - 08/26/2015 2:25 PM CDT Chief Complaint Patient presents with ??? Musculoskeletal Problem patient was seen at in [place] ear problem,they told him to follow up with Dr because his neckwas swollen and to check his thyroid. Initial BP 124/82 mmHg Pulse 52 Temp(Src) 97.6 ??F (36.4 ??C) (Oral) Resp 20 Ht 6' 2 (1.88 m) Wt 277 lb 3.2 oz (125.737 kg) BMI 35.58 kg/m2 SpO2 99% Estimated body mass index is 35.58 kg/(m^2) as calculated from the following: Height as of this encounter: 6' 2 (1.88 m). Weight as of this encounter: 277 lb 3.2 oz (125.737 kg). BP completed using cuff size: large documented in this encounter Plan of Treatment Upcoming Encounters Date Type Specialty Care Team Description 11/04/2022 Office Visit Internal Medicine Marcy Ricketts APRN MACHINE BUFFER [address] [place], [place] [address] (Wo rk) documented as of this encounter Procedures Procedure Name Priority Date/Time Associated Diagnosis Comme nts TSH WITH FREE T4 Routine 08/26/2015 2:42 PM Goiter Resul ts for this REFLEX CDT procedure are i n the results section. documented in this encounter Results TSH with free T4 reflex (08/26/2015 2:42 PM CDT) P athologist Signature TSH 3.91 0.40 - 4.00 [facility] mU/L [facility] Specimen Anatomical Collection Method Collection Time Receive d Time (Source) Location / / Volume Laterality Blood specimen 08/26/2015 2:42 PM 015 2:45 (specimen) CDT PM CDT Annalisa Silva LARGE ENGINE ASSEMBLER LAB - BLOOD ORDERABLES Performing Organization Address City/State/ZIP Code Phon e Number [facility] [address] [place] [address] documented in this encounter Visit Diagnoses Diagnosis Goiter - Primary Goiter, unspecified documented in this encounter Care Teams Cleat Maker Relationship Specialty Start Date End Date Annalisa Silva NP PCP - General Nurse Practitioner - Adult 08/26/15 [address] [place] [address] documented as of this encounter
--- OUTSIDE RECORDS SUMMARY | 2022-09-26 20:26 | XMS_ITS | Encounter Summary ---
:1995 Author Organization [place] Address [facility] [place] [address] Care Team Providers Name Role Phone Matthieu Olsen MD Primary Care Provider Unavailable Reason for Visit Reason Onset Date Comments Refill Request 10/01/2011 Amoxil 500 mg. cap Encounter Details Date Type Department Care Team Description 10/01/2011 Refill [facility] Matthieu Olsen R efill Request (Amoxil Clinic Meghan MEDEIROS 500 mg. cap) [address] [place] [address] Social History Tobacco Use Types [...] Telephone Encounter - Matthieu Olsen MD - 10/01/2011 1:04 PM ANTHROPOLOGY PROFESSOR Rx authorized, ROPOLOGY PROFESSOR Telephone Encounter - Raven Nelson - 10/01/2011 12:29 PM CST Faxed request received from pharmacy. Raven Nelson R.N. ROPOLOGY PROFESSOR documented in this encounter Plan of Treatment Upcoming Encounters Date Type Specialty Care Team Description 11/04/2022 Office Visit Internal Medicine Marcy Ricketts APRN SEED MILL SUPERINTENDENT [address] [place], [place] [address] (Wo rk) documented as of this encounter Visit Diagnoses Diagnosis Acne - Primary Other acne documented in this encounter Care Teams Chore Tender Relationship Specialty Start Date End Date Matthieu Olsen MD PCP - General 12/15/01 documented as of this encounter
--- OUTSIDE RECORDS SUMMARY | 2022-09-26 20:26 | XMS_ITS | Encounter Summary ---
:1995 Author Organization [facility] Address [address] [place] [address] Care Team Providers Name Role Phone Matthieu Olsen MD Primary Care Provider Unavailable Annalisa Silva NP Primary Care Provider [phone] Reason for Visit Reason Comments Urgent Care Ear Problem cold symptoms. 2 weeks ago w as treated for left ear infection. Was better for a couple days after medi cation finished- now plugged up again and some pain Encounter Details Date Type Department Care Team Description 08/24/2015 Office Visit [facility] Eric Marquez Sensat ion of plugged ear on left side (Primary Dx); Urgent Care Sandeep favian Real APRN MANAGER ENVIRONMENTAL AFFAIRS ETD (eustachian tube dysfunction), left; [address] Thyromegaly [place], [place] [id number] [phone] Social History Tobacco Use Types Packs/Day Years [...] Sign Reading Time Taken Comments Blood Pressure 116/68 08/24/2015 1:23 PM CDT Pulse 60 08/24/2015 1:23 PM CDT Temperature 36.6 ??C (97.8 ??F) 08/24/2015 1:23 PM CDT Respiratory Rate - - Oxygen Saturation - - Inhaled Oxygen Concentration - - Weight 122 kg (269 lb) 08/24/2015 1:23 PM CDT Height 188 cm (6' 2) 08/24/2015 1:23 PM CDT Body Mass Index 34.54 08/24/2015 1:23 PM CDT documented in this encounter Patient Instructions Patient InstructionsEric Marquez APRN MANAGER ENVIRONMENTAL AFFAIRS - 08/24/2015 1:45 PM CDT Images from the original note were not included. Fluid In The Middle Ear, No Infection (Adult) Earaches can happen without an infection. This can occur when air and fluid build up behind the eardrum causing pain and reduced hearing. This is called ???serous otitis media.?? It means ???fluid in the middle ear.?? It can happen when you have a cold if congestion blocks the passage that drains the middle ear (eustachian tube). It may also occur with nasal allergies, gastric acid reflux (GERD), or after a bacterial middle ear infection. The pain may come and go. You may hear clicking or popping sounds when chewing or swallowing. You may feel that your balance is off. Or you may hear ringing in the ear. It often takes from several weeks up to three months for the fluid to clear on its own. Oral pain relievers and ear drops help with pain. Decongestants and antihistamines sometimes help. This conditiondoes not respond to antibiotics since there is no infection. Your doctor may prescribe a nasal sprayto help reduce swelling in the nose and eustachian tube. This can allow the ear to drain. If there has been no improvement after three months, surgery may be used to drain the fluid and insert a small tube in the eardrum to permit continued drainage. Because the middle ear fluid can become infected, it is important to watch for signs of an ear infection which may develop later. These signs include ear pain, fever, or drainage from the ear. Home Care: ?? You may use acetaminophen (Tylenol) or ibuprofen (Motrin, Advil) to control pain, unless another medicine was prescribed. [NOTE: If you have chronic liver or kidney disease or ever had a stomach ulcer or GI bleeding, talk with your doctor before using these medicines.] (Aspirin should never be usedin anyone under 18 years of age who is ill with a fever. It may cause severe liver damage.) ?? You may use [id number] decongestants such as pseudoephedrine (Sudafed). ?? You may use medications such as guaifenesin (Mucinex) to thin mucus and promote drainage. Follow Up with your doctor or as advised if you are not feeling better after three days. Get Prompt Medical Attention if any of the following occur: ?? Ear pain gets worse or does not start to improve after three days of treatment ?? Fever of 100.4??F (38??C) or higher, or as directed by your healthcare provider ?? Fluid or blood draining from the ear ?? Headache or sinus pain ?? Stiff neck ?? Unusual drowsiness or confusion ?? [id number] [employer]. [address] [place] [address], [place] [address]. All rights reserved. This information is not intended as a substitute for professional medical care. Always follow your healthcare professional's instructions. documented in this encounter Progress Notes Eric Marquez APRN CNP - 08/24/2015 2:18 PM CDT Chief Complaint Patient presents with ??? Urgent Care ??? Ear Problem cold symptoms. 2 weeks ago was treated for left ear infection. Was better for a couple days after medication finished- now plugged up again and some pain SUBJECTIVE: Seamus Barnes is a 20 year old male who presents with left-sided ear plugging sensation with occasional intermittent discomfort. About 2 weeks ago he had similar symptoms and was seen and treated for a possible ear infection. Was on amoxicillin type antibiotic for about 10 days which did not resolve symptoms. There has been no drainage. No fevers. No chills. Occasional use of decongestant. No use of antihistamine. OBJECTIVE: BP 116/68 mmHg Pulse 60 Temp(Src) 97.8 ??F (36.6 ??C) (Oral) Ht 6' 2 (1.88 m) Wt 269 lb (122.018 kg) BMI 34.52 kg/m2 teenager in no acute distress. Bilateral eyes were noninjected. Pupils equal and reactive to light. Bilateral TMs and external ear canals were clear. Oral mucosa was moist without any erythema or exudate. Some moderate thyromegaly. Lung sounds were clear to auscultation throughout. Heart wasa regular rhythm and rate. ASSESSMENT/PLAN: (H93.8X2) Sensation of plugged ear on left side (primary encounter diagnosis)//(H69.82) ETD (eustachian tube dysfunction), left Comment: He has symptoms probably from eustachian tube dysfunction. Suggested use of decongestant and antihistamine regularly. Follow-up sometime next week if not significantly improved. (E04.9) Thyromegaly Comment: Incidental thyromegaly noted. Patient will follow up with PCP for further evaluation and management. Eric Marquez APRN CNP documented in this encounter Plan of Treatment Upcoming Encounters Date Type Specialty Care Team Description 11/04/2022 Office Visit Internal Medicine Marcy Ricketts APRN MANAGER ENVIRONMENTAL AFFAIRS [address] [place], [place] [address] (Wo rk) documented as of this encounter Visit Diagnoses Diagnosis Sensation of plugged ear on left side - Primary ETD (Eustachian tube dysfunction), left Thyromegaly Goiter, unspecified documented in this encounter Care Teams Police Patrol Officer Relationship Specialty Start Date End Date Matthieu Olsen MD PCP - General 12/15/01 Annalisa Silva NP PCP - General Nurse Practitioner - Adult 08/26/15 [address] [place] [address] documented as of this encounter
--- OUTSIDE RECORDS SUMMARY | 2022-09-26 20:26 | XMS_ITS | Encounter Summary ---
:1995 Author Organization [facility] Address [address] [place] [address] Care Team Providers Name Role Phone Matthieu Olsen MD Primary Care Provider Unavailable Reason for Visit Reason Comments Derm Problem Pt c/o red, itchy patch of s kin X 1week around groin area. Pt has been using Lotrimin cream. Encounter Details Date Type Department Care Team Description 01/24/2013 Office Visit [facility] Indra Kumar [facility] Meghan MEDEIROS (Primary Dx) [address] [place], [place] [id number] [phone] Social History Tobacco Use Types Packs/Day Years [...] Sign Reading Time Taken Comments Blood Pressure 108/64 01/24/2013 3:07 PM CDT Pulse - - Temperature 36.7 ??C (98 ??F) 01/24/2013 3:07 PM CDT Respiratory Rate - - Oxygen Saturation - - Inhaled Oxygen Concentration - - Weight 95.3 kg (210 lb) 01/24/2013 3:07 PM CDT Height 183.5 cm (6' 0.25) 01/24/2013 3:07 PM CDT Body Mass Index 28.28 01/24/2013 3:07 PM CDT Body Mass Index Percentile 95.04 % 01/24/2013 3:07 PM CD T Growth Chart: [facility] (Boys, 2-20 Years) documented in this encounter Progress Notes Indra Kumar MD - 01/27/2013 9:29 PM CDT Seamus Barnes is a 18 year old male here with rash in groin for past week. Worse last two days.Using lotrimin since yesterday. No hx of similar rash. 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 No other trauma or different skin products No dysuria or urgency No fever or cold sx Gen: no distress : +erythema mostly on scrotum and base of penis. Groin mostly clear Skin: no other rashes A/P Cutaneous candidiasis Cont lotrimin and if not improved then rx If still not improving use otc hydrocortisone or f/u documented in this encounter Nursing Notes 01/24/2013 3:00 PM CDT >> RAYNE HARTLEY TueJan 24, 2013 3:09 PM Patient presents with: Derm Problem - Pt c/o red, itchy patch of skin X 1week around groin area. Pt has been using Lotrimincream. initial BP 108/64 Temp(Src) 98 ??F (36.7 ??C) (Oral) Ht 6' 0.25 (1.835 m) Wt 210 lb (95.255 kg) BMI 28.28 kg/m2 Estimated Body mass index is 28.28 kg/(m^2) as calculated from the following: Height as of this encounter: 6' .25(1.835 m). Weight as of this encounter: 210 lb(95.255 kg).. bp completed using cuff size large Rayne Chaidez MA documented in this encounter Plan of Treatment Upcoming Encounters Date Type Specialty Care Team Description 11/04/2022 Office Visit Internal Medicine Marcy Ricketts APRN [employer] [address] [place], [place] [address] (Wo rk) documented as of this encounter Visit Diagnoses Diagnosis Cutaneous candidiasis - Primary Candidiasis of skin and nails documented in this encounter Care Teams Ocular Pathologist Relationship Specialty Start Date End Date Matthieu Olsen MD PCP - General 12/15/01 documented as of this encounter
--- OUTSIDE RECORDS SUMMARY | 2022-09-26 20:26 | XMS_ITS | Encounter Summary ---
:1995 Author Organization [facility] Address [address] [place] [address] Care Team Providers Name Role Phone Ricardo Annalisa Benja CV TECH Primary Care Provider [phone] Reason for Visit Reason Comments Fever Encounter Details Date Type Department Care Team Description 04/10/2016 [facility] [address] [place], [place] [id number] Fever, unspecified; [facility] [address] [place], [place] [phone] Nonintractable headache, unspecified chr onicity pattern, unspecified headache type Dept [address] [place] [address] Social History Tobacco Use Types [...] Sign Reading Time Taken Comments Blood Pressure 159/90 04/10/2016 11:44 PM CDT Pulse 98 04/10/2016 10:00 PM CDT Temperature 39.1 ??C (102.3 ??F) 04/10/2016 11:09 PM CDT Respiratory Rate 18 04/10/2016 9:24 PM CDT Oxygen Saturation 98% 04/10/2016 6:45 PM CDT Inhaled Oxygen Concentration - - Weight - - Height - - Body Mass Index - - documented in this encounter Discharge Instructions Discharge InstructionsVonnie Cuadra PA-C - 04/10/2016 11:29 PM CDT Images from the original note were not included. Use 800 mg Ibuprofen every 8 hours and 1000 mg Tylenol every 8 hours. Last dose of Tylenol at 7:30 pm on 04/10/16. Last dose of Ibuprofen at 7:00 pm on 04/10/16. Use Zofran every 8 hours for the next few days to help treat nausea and vomiting. You can use Reglan and Benadryl together for headaches if needed. Narcotics were not prescribed because they can make headaches worse. It's important to drink plenty of fluids to stay hydrated and eat as best you can to keep up your strength so your body can heal itself. Return to ED with worsening headache, intractable vomiting or other concerns. Follow up with primary doctor in the next few days if not improving. Febrile Illness, Uncertain Cause (Adult) You have a fever, but the cause is not certain. A fever is a natural reaction of the body to an illness such as infections due to a virus or bacteria. In most cases, the temperature itself is not harmful. It actually helps the body fight infections. A fever does not need to be treated unless you feel very uncomfortable. Sometimes a fever can be an early sign of a more serious infection. Therefore, you should watch for the signs listed below. Home Care: ?? If signs and symptoms are severe, rest at home for the first 2-3 days. When you resume activity, don't let yourself get too tired. ?? Stay away from cigarette smoke (yours and other peoples???). ?? You may use acetaminophen (Tylenol) or ibuprofen (Motrin, Advil) to control fever or pain, unlessanother medicine was prescribed. NOTE: If you have chronic liver or kidney disease or ever had a stomach ulcer or GI bleeding, talk with your doctor before using these medicines. (Aspirin should never be used in anyone under 18 years of age who is ill with a fever. It may cause severe liver damage.) ?? Your appetite may be poor, so a light diet is fine. Avoid dehydration by drinking 6-8 glasses of fluid per day (water, sport drinks such as Gatorade, sodas without caffeine, juices, tea, soup). Extra fluid will help loosen secretions in the nose and lungs. ?? [id number] products will not shorten the duration of the illness but may be helpful for thefollowing symptoms: cough (Robitussin DM); sore throat (Chloraseptic lozenges or spray); nasal and sinus congestion (Actifed or Sudafed). NOTE: Do not use decongestants if you have high blood pressure. Follow Up with your doctor or as advised if you do not start to improve over the next week. Get Prompt Medical Attention if any of the following occur: ?? Cough with lots of colored sputum (mucus) or blood in your sputum ?? Chest pain, shortness of breath, wheezing or difficulty breathing ?? Severe headache, face, neck, throat or ear pain ?? Feeling drowsy or confused ?? Abdominal pain, repeated vomiting or diarrhea ?? Joint pain or a new rash ?? Burning when urinating ?? Fever of 100.4??F (38??C) oral or higher, not better with fever medication ?? Feeling weak or dizzy ?? Convulsion ?? [phone] [employer] [address] [place] [address], [place] [address]. All rights reserved. This information is not intended as a substitute for professional medical care. Always follow your healthcare professional's instructions. * HEADACHE [unspecified] The cause of your headache today is not clear, but it does not appear to be the sign of any serious illness. Under stress, some people tense the muscles of their shoulder, neck and scalp without knowing it. Ifthis condition lasts long enough, a TENSION HEADACHE can occur. A MIGRAINE HEADACHE is caused by changes in blood flow to the brain. It can be mild or severe. A migraine attack may be triggered by emotional stress, hormone changes during the menstrual cycle, oral contraceptives, alcohol use, certain foods containing tyramine, eye strain, weather changes, missing meals, lack of sleep or oversleeping. Other causes of headache include a viral illness, sinus, ear or throat infection, dental pain and TMJ (jaw joint) pain. HOME CARE: ?? If you were given pain medicine for this headache, do not drive yourself home. Arrange for a ride, instead. When you get home, try to sleep. You should feel much better when you wake up. ?? If you are having nausea or vomiting, follow a light diet until your headache is relieved. ?? If you have a migraine type headache, use sunglasses when in the daylight or around bright indoorlighting until symptoms improve. Bright glaring light can worsen this kind of headache. FOLLOW UP with your doctor if the headache is not better within the next 24 hours. If you have frequent headaches you should discuss a treatment plan with your primary care doctor. By being aware of the earliest signs of headache, and starting treatment right away, you may be able to stop the pain yourself. GET PROMPT MEDICAL ATTENTION if any of the following occur: ?? Worsening of your head pain or no improvement within 24 hours ?? Repeated vomiting (unable to keep liquids down) ?? Fever over 101??F (38.3??C) ?? Stiff neck ?? Extreme drowsiness, confusion or fainting ?? Weakness of an arm or leg or one side of the face ?? Difficulty with speech or vision ?? [id number] [facility], [address] [place] [address], [place] [address]. All rights reserved. This information is not intended as a substitute for professional medical care. Always follow your healthcare professional's instructions. documented in this encounter Medications at Time of Discharge Medication Sig Dispensed Refills Start Date End Date ondansetron (ZOFRAN ODT) 4 Take 1 tablet (4 10 tablet 0 08/201604/13/2016 MG disintegrating tablet mg) by mouth every 8 hours as needed for nausea diphenhydrAMINE (BENADRYL) Take 1 tablet (25 56 tablet 0 04/22/2016 25 MG tablet mg) by mouth every 6 hours as needed (with Reglan for headache) metoclopramide (REGLAN) 5 Take 1 tablet (5 240 tablet 0 03/3104/22/2016 MG tablet mg) by mouth 4 times daily as needed For headache documented as of this encounter ED Notes Lisa Cherry RN - 04/10/2016 11:43 PM CDT All patient questions have been answered, no further questions at this time. Patient verbalizes understanding of discharge teaching and the importance of follow up. Lisa Cherry RN - 04/10/2016 11:06 PM CDT Patient is sleeping in room. Appears to be comfortable at this time. T Akilah Blue MD - 04/10/2016 7:09 PM CDT Emergency Department Attending Supervision Note 04/10/2016 7:09 PM I evaluated this patient in conjunction with Vonnie Cuadra PA-C Briefly, the patient presented with fever. First noted fever 2 days ago. This am he noted a headache and came to the ED where he had unremarkable labs. Returns due to continued severe headache. He had a negative evaluation earlier today including a negative chest x ray. He has not traveled recently and denies known ID exposures. On my exam,he is febrile, neurologically intact without meningismus. My impression is febrile illness, can not rule out meningitis. Lumbar Puncture INDICATION: headache and fever CONSENT: Risks (including but not limited to; infection, bleeding, spinal headache with possibility of spinal patch and temporary or permanent neurologic injury), benefits and alternatives were discussed with patient and consent for procedure was obtained. TIMEOUT: [place] protocol was followed. TIME OUT conducted just prior to starting procedure confirmed patient identity, site/side, procedure, patient position, and availability of correct equipment and implants? No MEDICATIONS: Lidocaine: Local infiltration PROCEDURAL NOTE: Patient was placed in a left lateral decubitus position. The low back was prepped with Betadine. The patient was medicated as above. A spinal needle was used to gain access to the subarachnoid space with stylet in place. Opening pressure was not measured however the CSF flow was very slow. The fluid was clear. Stylet was replaced and needle withdrawn. PATIENT STATUS: Patient tolerated the procedure well. There were no complications. Diagnosis: ICD-10-CM 1. Fever, unspecified R50.9 CSF Culture Aerobic Bacterial Gram stain 2. Nonintractable headache, unspecified chronicity pattern, unspecified headache type R51 He is hemodynamically stable and well appearing at the time of discharge. With reasonable clinical certainty I feel that the patient is safe for discharge home for ongoing evaluation and management asan outpatient. MD Su Jimenez Christine Abbott, MD 04/11/16 1223 Vonnie Cuadra PA-C - 04/10/2016 6:37 PM CDT History Chief Complaint: Fever HPI Seamus Barnes is a 21 year old male who presents to the emergency department today for evaluation of a fever. The patient returns to the ED this evening prior to being discharged this morning due to persistent fever. The patients symptoms started two days ago but has worsened into today despite tr eating with 400 mg Ibuprofen and 650 mg Tylenol. He reported that while at work at [employer] vomited and went home early in which he recorded his temperature to be 103. He then went to an Urgent Care at the [facility] in [place] in which he was given IV fluids and discharged when he felt better and his temperature dropped to 101. The patient went to bed last night but woke up with a temperature of 103 in which he came into the ED for further evaluation at 4 am this morning in which he was diagnosed with a fever and elevated LFT's. He had a full, thorough workup including negative CXR and other lab and was sent home with prescription for Zofran. The patient also sta keara that he was given fluids and blood tests in which the cultures are still pending. He was discharged home in improved condition, and reported his temperatures ranged between 99.8 and 102.5 throughout the day. The patient has been alternating doses of ibuprofen and Advil every three hours in which his last dose of Advil was at 1600 today. Additionally, the patient reports feeling nauseous with one episode of vomiting as well as a headache in which he described to be in the forehead area since 0400this morning. He stated that the Zofran prescription did not alleviate his symptoms. Furthermore, the patient reports having a cough from phlegm as well as a rapid heart beat and shortness of breath since the onset in which he described it as short shallow breaths. The patient denies any chest pain or any changes in bowel or bladder habits at this time. Allergies: Minocycline - Itching and Rash Medications: Zofran Problem List: Obesity Past Medical History: History reviewed. No pertinent past medical history. Past Surgical History: History reviewed. No pertinent past surgical history. Family History: History reviewed. No pertinent family history. Social History: The patient was accompanied to the ED by his mother. Smoking Status: Passive Smoke Exposure - Never Smoker Smokeless Tobacco: NEever Alcohol Use: No Marital Status: Single Review of Systems Constitutional: Positive for fever and chills. Respiratory: Positive for cough and shortness of breath. Cardiovascular: Negative for chest pain. Gastrointestinal: Positive for nausea and vomiting. Negative for diarrhea, constipation and blood instool. Genitourinary: Negative for dysuria, urgency, frequency and difficulty urinating. All other systems reviewed and are negative. Physical Exam First Vitals: BP: (!) 159/92 mmHg Pulse: 91 Heart Rate: 91 Temp: 98.8 ??F (37.1 ??C) Resp: 18 SpO2: 97 % Physical Exam Constitutional: Alert, attentive. The patient appears uncomfortable, shivering on the gurney. HENT: Nose: Nose normal. Mouth/Throat: Oropharynx is clear, mucous membranes are moist Eyes: EOM are normal. Pupils are equal, round, and reactive to light. CV: Regular rate and rhythm Chest: Effort normal and breath sounds normal. GI: No distension. There is no tenderness MSK: Normal range of motion. Neurological: GCS 15; A/Ox3; Cranial nerves 2-12 intact; 5/5 strength throughout the upper and lower extremities; sensation intact to light touch throughout the upper and lower extremities; normal fine motor coordination intact bilaterally; normal gait No meningismus Skin: Skin is warm and dry. Emergency Department Course Imaging: Radiology findings were communicated with the patient and family who voiced understanding of the findings. CT head: Normal CT scan of the head, per radiology. Laboratory: Laboratory findings were communicated with the patient and family who voiced understanding of the findings. CBC: PLT 148(L) o/w WNL. 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 No organisms seen. Procedure: Lumbar Puncture INDICATION: headache and fever CONSENT: Risks (including but not limited to; infection, bleeding, spinal headache with possibility of spinal patch and temporary or permanent neurologic injury), benefits and alternatives were discussed with patient and parent(s) and consent for procedure was obtained. TIMEOUT: [place] protocol was followed. TIME OUT conducted just prior to starting procedure confirmed patient identity, site/side, procedure, patient position, and availability of correct equipment and implants? Yes MEDICATIONS: Lidocaine: Local infiltration PROCEDURAL NOTE: Patient was placed in a left lateral decubitus position. The low back was prepped with Betadine. The patient was medicated as above. A spinal needle was used to gain access to the subarachnoid space with stylet in place. The fluid was clear. Stylet was replaced and needle withdrawn. PATIENT STATUS: Patient tolerated the procedure well. There were no complications. Interventions: 1908 NS 1,000mL IV 190 Toradol 30mg IV 190 Reglan 5mg IV 190 Benadryl 25mg IV 193 Tylenol 975mg Oral Dilaudid 1 mg IV Emergency Department Course: I evaluated the patient and discussed a plan of care with the patient and Dr. Blue IV inserted and blood drawn. The patient was placed on continuous cardiac monitoring and pulse oximetry. The patient was sent for the following imaging: CT head. See results above. Lumbar puncture was performed by Dr. Blue. See procedure note above. The patient reported feeling improved after the above interventions. Rechecked the patient, findings and plan explained to the patient and his mother. Patient dischargedhome with his mother, status improved, with instructions regarding supportive care, medications, andreasons to return as well as the importance of close follow-up was reviewed. Impression & Plan Medical Decision Making: Seamus Barnes presents tonight for reevaluation of fevers that he is unable to control at home with Tylenol and Ibuprofen as well as headache. On exam, the patient is neurologically intact withoutmeningismus and other abnormalities. He was given headache cocktail here without change in headache therefore Dilaudid was provided which helped his pain. His temperature was initially normal here but he developed a fever shortly after arrival and he was treated with Toradol and Tylenol. Given the negative chest x-ray, rapid strep and negative blood cultures obtained on the overnight shift last night, and the fact that he has never had a UTI in his life and has no abdominal pain or urinary symptoms,I felt that those things did not need to be retested. I did check his basic labs again to make sure his liver enzymes were improving and they indeed were trending down. He did not have a white count here tonight. Given the patient's headache and fever, I discussed with him and his mother performing head CT and subsequent lumbar puncture to rule out meningitis. The patient opted to do this and CT headwas negative. Lumbar puncture was performed by Dr. Blue, see procedure note above. CSF fluid was negative for blood or infection, see results above. On reevaluations, the patient was sleeping peacefully but continued to have a fever and headache here. At this time, we have ruled out bacterial causesof his fever and headache and I feel this is likely viral in etiology. I discussed the results with the patient and his family. They will use Reglan and Benadryl for headaches as needed, Zofran for nausea/vomiting and Tylenol/Ibuprofen for fever. The patient and his family feel comfortable with the plan for discharge home. They will push fluids, get plenty of sleep and follow up with PCP next week. Re turn to the ED with concerns. They express understanding and agreement with the plan. Diagnosis: Fever, unspecified Nonintractable headache, unspecified chronicity pattern, unspecified headache type Disposition: Home with family Discharge Medications: New Prescriptions DIPHENHYDRAMINE (BENADRYL) 25 MG TABLET Take 1 tablet (25 mg) by mouth every 6 hours as needed (with Reglan for headache) METOCLOPRAMIDE (REGLAN) 5 MG TABLET Take 1 tablet (5 mg) by mouth 4 times daily as needed For headache I, Maureen Cuadra PA-C, interviewed the patient, explained the course of action and discussed the patient with Dr. Blue who then evaluated the patient. Denise Rodneyiam 04/10/2016 [facility] EMERGENCY DEPARTMENT Vonnie Cuadra PA-C 04/11/16 0027 Associated attestation - Akilah Blue MD - 04/11/2016 11:40 AM CDT The documentation recorded by the scribe accurately reflects the services I personally performed andthe decisions made by me in conjunction with Vonnie Cuadra PA-C. Lisa Cherry RN - 04/10/2016 6:20 PM CDT Patient states that since he has been having headaches, fevers, chills, and N/V. ABC intactw/o need for intervention. Was seen here last night and patient states they didn't tell him what waswrong and he is not improving. documented in this encounter Plan of Treatment Upcoming Encounters Date Type Specialty Care Team Description 11/04/2022 Office Visit Internal Medicine Marcy Ricketts APRN [facility] [address] [place] [phone] (Wo rk) documented as of this encounter Procedures Procedure Name Priority Date/Time Associated Comments Diagnosis PROTEIN TOTAL CSF STAT 04/10/2016 10:02 Result s for this PM CDT procedure are i n the results section. GLUCOSE CSF STAT 04/10/2016 10:02 Results for this PM CDT procedure are i n the results section. CELL COUNT WITH STAT 04/10/2016 10:02 Results for this DIFFERENTIAL CSF PM CDT procedure a re in the results section. GRAM STAIN STAT 04/10/2016 10:01 Fever, unspecified Resul ts for this PM CDT procedure are i n the results section. CSF CULTURE AEROBIC STAT 04/10/2016 10:01 Fever, unspecifie d Results for this BACTERIAL PM CDT procedure are i n the results section. CELL COUNT WITH STAT 04/10/2016 10:01 Results for this DIFFERENTIAL CSF PM CDT procedure a re in the results section. CT HEAD W/O CONTRAST STAT 04/10/2016 8:26 PM R esults for this CDT procedure are i n the results section. CBC WITH PLATELETS & STAT 04/10/2016 7:19 PM R esults for this DIFFERENTIAL CDT procedure are i n the results section. COMPREHENSIVE STAT 04/10/2016 7:19 PM Results for this METABOLIC PANEL CDT procedure ar e in the results section. documented in this encounter Results Protein total CSF: Tube 2 (04/10/2016 10:02 PM CDT) athologist Signature Protein Total 21 15 - 60 [place] CSF mg/dL [facility] Specimen (Source) Anatomical Location Collection Collection Time Received Time / Laterality Method / Volume Cerebrospinal fluid CEREBROSPINAL FLUID 04/10/2016 10: 02 04/10/2016 specimen (specimen) SPECIMEN / Unknown PM CDT 10 :11 PM CDT Akilah Blue MD LAB - CSF ORDERABLES Performing Organization Address City/[facility]/ZIP Code Phon e Number [facility] [address], [place] [address] [facility] [address] [phone] Glucose CSF: Tube 2 (04/10/2016 10:02 PM CDT) athologist Signature Glucose CSF 70 40 - 70 [place] mg/dL [facility] Comment: CSF glucose concentrations are about 60 percent of normal plasma glucose. Specimen (Source) Anatomical Location Collection Collection Time Received Time / Laterality Method / Volume Cerebrospinal fluid CEREBROSPINAL FLUID 04/10/2016 10: 02 04/10/2016 specimen (specimen) SPECIMEN / Unknown PM CDT 10 :11 PM CDT Akilah Blue MD LAB - CSF ORDERABLES Performing Organization Address City/[facility]/ZIP Code Phon e Number M [facility] [address], [place] [address] [facility] [address] [place], [place] [address], [place] [phone] Cell count with differential CSF: Tube 1 (04/10/2016 10:02 PM CDT) [facility] gist Method Time Signature WBC CSF 2 0 - 5 /uL [facility] RBC CSF 0 0 - 2 /uL [facility] Tube Number 4 # [facility] Color CSF Colorless CLRL [facility] Appearance CSF Clear CLER [facility] Specimen (Source) Anatomical Location Collection Collection Time Received Time / Laterality Method / Volume Cerebrospinal fluid CEREBROSPINAL FLUID 04/10/2016 10: 02 04/10/2016 specimen (specimen) SPECIMEN / Unknown PM CDT 10 :11 PM CDT Akilah Blue MD LAB - CSF ORDERABLES Performing Organization Address City/State/ZIP Code Phon e Number M [facility] [address] [place], [place] [address] [facility] [address] [place], [place] [address], [place] [phone] Cell count with differential CSF: Tube 4 (04/10/2016 10:01 PM CDT) athologist Signature WBC CSF Test not 0 - 5 /uL [facility] performed. [facility] Criteria not HOSPITAL met for second cell count. RBC CSF Test not 0 - 2 /uL [facility] performed. [facility] Criteria not HOSPITAL met for second cell count. Specimen (Source) Anatomical Location Collection Collection Time Received Time / Laterality Method / Volume Cerebrospinal fluid CEREBROSPINAL FLUID 04/10/2016 10: 01 04/10/2016 specimen (specimen) SPECIMEN / Unknown PM CDT 10 :12 PM CDT Akilah Blue MD LAB - CSF ORDERABLES Performing Organization Address City/State/ZIP Code Phon e Number M [facility] [address] [place], [place] [address] [facility] [address] [place], [place] [address], [place] [phone] Gram stain (04/10/2016 10:01 PM CDT) Component Value Ref Test Analysis Performed At [facility] Svbtle Range Method Time Signature Specimen Cerebrospinal [facility] Gram Stain No WBC'S seen MICRO RAPID No organisms seen TESTING LAB Gram stain review consistent with reported results. Gram stain slide reviewed at the Infectious Diseases Diagnostic Laboratory - [facility] Micro Report FINAL 04/11/2016 MICRO RAPI D Status TESTING LAB Specimen (Source) Anatomical Collection Method Collection Time Re ceived Time Location / / Volume Laterality Cerebrospinal fluid 04/10/2016 10:01 03/31 specimen (specimen) PM CDT 10:12 PM CDT Akilah Blue MD LAB - MICRO GENERAL ORDERAB LES Performing Organization Address City/[facility] Phon e Number MICRO RAPID TESTING LAB [address] [place] [address] [facility] [address], [place] [address], [facility] [phone] CSF Culture Aerobic Bacterial (04/10/2016 10:01 PM CDT) Component Value Ref Test Analysis Performed At [facility] Method Time Signature Specimen Cerebrospinal [facility] Culture Micro No growth INFECTIOUS DISEASE DIAGNOSTIC LABORATORY Micro Report FINAL 04/16/2016 INFECTIOUS Status DISEASE DIAGNOSTIC LABORATORY Specimen (Source) Anatomical Collection Method Collection Time Re ceived Time Location / / Volume Laterality Cerebrospinal fluid 04/10/2016 10:01 03/31 specimen (specimen) PM CDT 10:12 PM CDT Akilah Blue MD LAB - MICRO GENERAL ORDERAB LES Performing Organization Address City/[facility] Phon e Number INFECTIOUS DISEASES [address] [place] [address] DIAGNOSTIC LABORATORY, [facility] [address], [place] [address], [facility] [phone] INFECTIOUS DISEASE [address] [place] [address], [facility] DIAGNOSTIC LABORATORY CT Head w/o Contrast (04/10/2016 8:26 PM CDT) Anatomical Region Laterality Modality Head, SUBRAD CT NEURO, SUBRAD CT NEURO, [facility] CT NEURO Computed Tomography Specimen (Source) Anatomical Location Collection Method / Collectio n Time Received Time / Laterality Volume Impressions 04/10/2016 8:37 PM CDT IMPRESSION: ?Normal CT scan of the head. ? JOSE ANG MD Narrative 04/10/2016 8:[address] SCAN OF THE HEAD WITHOUT CONTRAST ?? 04/10/2016 8:26 PM HISTORY: Frontal headaches and fever. Sc an before planned lumbar puncture. TECHNIQUE: ??Axial images of the head an d coronal reformations without IV contrast material. Radiation dose for this scan was reduced using automated exposure control, adjustment o f the mA and/or kV according to patient size, or iterative reconstruc tion technique. COMPARISON: None. FINDINGS: ??The ventricles are normal in size, shape and configuration. The brain parenchyma and subarachnoid s paces are normal. There is no evidence of intracranial hemorrhage, mas s, acute infarct or anomaly. The visualized portions of the sinuses a nd mastoids appear normal. There is no evidence of trauma. ? Procedure Note Jose Ang MD - 04/10/2016Formatt ing of this note might be different from the original. CT SCAN OF THE HEAD WITHOUT CONTRAST 03/31 8:26 PM HISTORY: Frontal headaches and fever. Sc an before planned lumbar puncture. TECHNIQUE: Axial images of the head and coronal reformations without IV contrast material. Radiation dose for this scan was reduced using automated exposure control, adjustment o f the mA and/or kV according to patient size, or iterative reconstruc tion technique. COMPARISON: None. FINDINGS: The ventricles are normal in s ize, shape and configuration. The brain parenchyma and subarachnoid s paces are normal. There is no evidence of intracranial hemorrhage, mas s, acute infarct or anomaly. The visualized portions of the sinuses a nd mastoids appear normal. There is no evidence of trauma. IMPRESSION: Normal CT scan of the head. JOSE ANG MD Vonnie Cuadra PA-C [facility] CT ORDERABLES (ABNORMAL) Comprehensive metabolic panel (04/10/2016 7:19 PM CDT) athologist Signature Sodium 136 133 - 144 [place] mmol/L [facility] Potassium 3.7 3.4 - 5.3 [place] mmol/L [facility] Chloride 102 94 - 109 [place] mmol/L [facility] Carbon Dioxide 29 20 - 32 [place] mmol/L [facility] Anion Gap 5 3 - 14 [place] mmol/L [facility] Glucose 108 (H) 70 - 99 [place] mg/dL [facility] Urea Nitrogen 8 7 - 30 [place] mg/dL [facility] Creatinine 1.18 0.66 - [place] 1.25 mg/dL [facility] GFR Estimate 79 >60 [place] mL/min/1.7 [facility] m2 [facility] Comment: Non GFR Calc GFR Estimate If Black >90 >60 mL/min/1.7m2 F [facility] GFR Calc HOSP ITAL Calcium 8.5 8.5 - 10.1 mg/dL [facility] Bilirubin Total 0.7 0.2 - 1.3 mg/dL [facility] Albumin 3.7 3.4 - 5.0 g/dL [facility] Protein Total 7.3 6.8 - 8.8 g/dL [facility] Alkaline Phosphatase 128 40 - 150 U/L [facility] ALT 97 (H) 0 - 70 U/L [facility] AST 38 0 - 45 U/L [facility] Specimen Anatomical Collection Method Collection Time Receive d Time (Source) Location / / Volume Laterality Blood specimen 04/10/2016 7:19 PM 016 7:26 (specimen) CDT PM CDT Vonnie Cuadra PA-C LAB - BLOOD ORDERABLES Performing Organization Address City/State/ZIP Code Phon e Number [place] [address] [address] [facility] [address] [phone] (ABNORMAL) CBC with platelets differential (04/10/2016 7:19 PM CDT) [facility] Method Time Signature WBC 8.5 4.0 - [place] 11.0 [facility] 10e9/L [facility] RBC Count 4.51 4.4 - 5.9 [place] 10e12/L [facility] Hemoglobin 14.7 13.3 - [place] 17.7 g/dL [facility] Hematocrit 42.9 40.0 - [place] 53.0 % [facility] MCV 95 78 - 100 [facility] MCH 32.6 26.5 - [facility] 33.0 pg [facility] MCHC 34.3 31.5 - [place] 36.5 g/dL [facility] RDW 13.0 10.0 - [place] 15.0 % [facility] Platelet Count 148 (L) 150 - [address] [place] [id number] [place] [address] [facility] % Neutrophils 76.3 % [facility] % Lymphocytes 14.6 % [facility] % Monocytes 8.8 % [facility] % Eosinophils 0.0 % [facility] % Basophils 0.1 % [facility] % Immature 0.2 % [place] Granulocytes [facility] Nucleated RBCs 0 0 /100 [facility] Absolute 6.5 1.6 - 8.3 [place] Neutrophil 10e9/L [facility] Absolute 1.3 0.8 - 5.3 [place] Lymphocytes 10e9/L [facility] Absolute 0.8 0.0 - 1.3 [place] Monocytes [facility] Absolute 0.0 0.0 - 0.7 [place] Eosinophils 10/L [facility] Absolute 0.0 0.0 - 0.2 [place] Basophils e9L [facility] Abs Immature 0.0 0 - 0.4 [place] Granulocytes [address] [place] [address] Absolute 0.0 [place] Nucleated RBC [facility] Specimen Anatomical Collection Method Collection Time Receive d Time (Source) Location / / Volume Laterality Blood specimen 04/10/2016 7:19 PM 016 7:26 (specimen) CDT PM CDT Vonnie Cuadra PA-C LAB - BLOOD ORDERABLES Performing Organization Address City/State/ZIP Code Phon e Number [place] [address] [place] [address] [facility] [address] [phone] documented in this encounter Visit Diagnoses Diagnosis Fever, unspecified Nonintractable headache, unspecified chr onicity pattern, unspecified headache type documented in this encounter Administered Medications Inactive Administered Medications - up to 3 most recent administrations Medication Order MAR Action Action Date Dose Rate Site 0.9% sodium chloride BOLUS New Bag 04/10/2016 7:08 PM CDT 1,000 mLs 1000 mL/hr Intravenous, 1,000 mL, ONCE, at 1,000 mL/hr, Administer over 1 Hours, On 04/10/16 at 1900, For 1 dose acetaminophen (TYLENOL) tablet 975 mg Given 04/10/2016 7:36 PM CDT 975 mg 975 mg, Oral, ONCE, On 04/10/16 at 1936, For 1 dose, Maximum acetaminophen dose from all sources = 75 mg/kg/day not to exceed 4 grams/day. diphenhydrAMINE (BENADRYL) injection 25 mg Given 04/10/2016 7:09 PM CDT 25 mg 25 mg, Intravenous, ONCE, On 04/10/16 at 1900, For 1 dose HYDROmorphone (DILAUDID) injection 1 mg Given 04/10/2016 9:24 PM CDT 1 mg 1 mg, Intravenous, ONCE, On 04/10/16 at 2104, For 1 dose, Moderate to severe pain ketorolac (TORADOL) injection 30 mg Given 04/10/2016 7:08 PM CDT 30 mg 30 mg, Intravenous, ONCE, On 04/10/16 at 1900, For 1 dose, Do not give within 6 hours of Ibuprofen. metoclopramide (REGLAN) injection 5 mg Given 04/10/2016 7:08 PM CDT 5 mg 5 mg, Intravenous, ONCE, On 04/10/16 at 1900, For 1 dose, Avoid use if patient has full bowel obstruction or perforation. documented in this encounter Active and Recently Administered Medications Times are shown in CDT. Scheduled Medication Order 04/08/2016 04/09/2016 04/10/2016 0.9% sodium chloride BOLUS (COMPLETED) 1907 (New Bag - Provider: Lisa Cherry, NICOLA)2125 (Stopped - Provider: Lisa Cherry, NICOLA) Intravenous, 1,000 mL, ONCE, at 1,000 mL /hr, for 1 Hours, 04/10/16 at 1900, For 1 dose acetaminophen (TYLENOL) tablet 975 mg (COMPLETED) 1935 (Given - Provider: Lisa Cherry, NICOLA) 975 mg, Oral, ONCE, 04/10/16 at 1936, For 1 dose, Maximum acetaminophen dose from all sources = 75 mg/kg/day not to exceed 4 grams/day. diphenhydrAMINE (BENADRYL) injection 25 mg (COMPLETED) 1908 (Given - Provider: Lisa Cherry, NICOLA) 25 mg, Intravenous, ONCE, 04/10/16 at 1900, For 1 dose HYDROmorphone (DILAUDID) injection 1 mg (COMPLETED) 2123 (Given - Provider: Lisa Cherry, NICOLA) 1 mg, Intravenous, ONCE, 1 dose, 04/10/16 at 2104, Moderate t o severe pain ketorolac (TORADOL) injection 30 mg (COMPLETED) 1907 (Given - Provider: Lisa Cherry, NICOLA) 30 mg, Intravenous, ONCE, 04/10/16 at 1900, For 1 dose, Do not give within 6 hours of Ibuprofen. metoclopramide (REGLAN) injection 5 mg (COMPLETED) 1907 (Given - Provider: Lisa Cherry RN) 5 mg, Intravenous, ONCE, 04/10/16 at 1900, For 1 dose, Avoid use if patient has full bowel obstruction or perforation. documented in this encounter Care Teams Domestic Housekeeper Relationship Specialty Start Date End Date Annalisa Silva NP PCP - General Nurse Practitioner - Adult 08/26/15 [address] [place] [address] documented as of this encounter
--- OUTSIDE RECORDS SUMMARY | 2022-09-26 20:26 | XMS_ITS | Encounter Summary ---
:1995 Author Organization [place] Address [address] [place] [address] Care Team Providers Name Role Phone Matthieu Olsen MD Primary Care Provider Unavailable Encounter Details Date Type Department Care Team Description 06/26/2012 [facility] Senthil beavers, Cervicalgia [facility] DO [address] [facility] [id number] [address] [facility] [phone] [place], [place] [address] (Wo rk) Social History Tobacco Use Types [...] Sig Dispensed Refills Start Date End Date amoxicillin (AMOXIL) Take 1 capsule by 60 capsule 3 10/01/20 11 01/24/2013 500 MG mouth 2 times daily. capsuleIndications: Acne BUSPIRONE HCL PO Take by mouth. 0 04/2013 citalopram (CELEXA) 20 Take 1 tablet by 90 tablet 1 011 01/24/2013 MG tabletIndications: mouth daily. Anxiety attack, Moderate major depression (H), Generalised anxiety disorder clindamycin-benzoyl Apply topically 50 g 3 12/31/2010 05/02/2013 peroxide (BENZACLIN) daily. gelIndications: Acne minocycline Take 1 capsule by 180 capsule 3 12/31/201001/24 (MINOCIN,DYNACIN) 100 mouth daily. MG capsuleIndications: Acne NEW MED 2 creams for face 0 013 sertraline (ZOLOFT) 25 Take by mouth daily. 60 tablet 1 12/201001/24/2013 MG tabletIndications: 3 tabs po qd Anxiety attack Urea 40 % LOTN Externally apply 0 12/2012 topically. documented as of this encounter Miscellaneous Notes Initial Assessments - Abstract, Provider - 06/27/2012 12:14 AM CDT documented in this encounter Plan of Treatment Upcoming Encounters Date Type Specialty Care Team Description 11/04/2022 Office Visit Internal Medicine Marcy Ricketts APRN MANAGER RELOCATION [address] [place], [place] [address] (Wo rk) documented as of this encounter Procedures Procedure Name Priority Date/Time Associated Diagnosis Comme nts MR CERVICAL SPINE Routine 06/26/2012 4:42 PM Cervicalgia Resu lts for this W/O CONTRAST CDT procedure are i n the results section. documented in this encounter Results MRI Cervical spine w/o contrast (06/26/2012 4:42 PM CDT) Anatomical Region Laterality Modality Spine, SUBRAD MR NEURO, UMP MR SPINE Mag netic Resonance Specimen (Source) Anatomical Collection Method Collection Time Re ceived Time Location / / Volume Laterality 06/26/2012 4:42 PM CDT Impressions 06/26/2012 10:50 PM CDT MRI CERVICAL SPINE WITHOUT CONTRAST Jun 26, 2012 4:42:00 PM HISTORY: Lateral neck pain and right jean ulder and arm pain and back pain. Tingling. Symptoms during contact when playing football or doing physical labor. TECHNIQUE: Multiplanar, multisequence MR I of the cervical spine without ??contrast. COMPARISON: 06/15/2012 radiographs. FINDINGS: The cervical spinal cord and v isualized portions of the thoracic spinal cord appear normal. The visualized portions of the brainstem and cerebellum appear normal. ?? Alignment: Slight reversal of lordosis l ikely due to patient positioning. ?? Craniocervical Junction and C1-C2: Hollie l. C2-C3: Normal disc, facet joints, spinal canal and neural foramina. C3-C4: Normal disc, facet joints, spinal canal and neural foramina. C4-C5: Normal disc, facet joints, spinal canal and neural foramina. C5-C6: Normal disc, facet joints, spinal canal and neural foramina. C6-C7: Normal disc, facet joints, spinal canal and neural foramina. C7-T1: Normal disc, facet joints, spinal canal and neural foramina. T1-T2: Normal disc, facet joints, spinal canal and neural foramina. T2-T3: Normal disc, facet joints, spinal canal and neural foramina. T3-T4: Normal disc, facet joints, spinal canal and neural foramina. Paraspinous Soft Tissues: Normal as visu alized. Bone Marrow: There is focal bone marrow edema in the spinous process of T1 best seen on sagittal STIR image 6 series 7 and T1-weighted sagittal image 6 series 6. There is also bone marrow edema in the right first rib posteriorly as seen on a xial images 55-59 series 10. No discrete fracture line is visible. IMPRESSION: Bone marrow edema suggesting either bone bruises or nondisplaced fractures of the spinous pr ocess of T1 and of the right posterior first rib. Limited CT scan is suggested for further evaluation to confirm fracture and rule out destructive processes. Senthil Jenkins DO IMG MRI ORDERABLES documented in this encounter Visit Diagnoses Diagnosis Cervicalgia documented in this encounter Care Teams Parts Expediter Relationship Specialty Start Date End Date Matthieu Olsen MD PCP - General 12/15/01 documented as of this encounter
--- OUTSIDE RECORDS SUMMARY | 2022-09-26 20:26 | XMS_ITS | Encounter Summary ---
:1995 Author Organization [place] Address [facility] [place] [address] Care Team Providers Name Role Phone Matthieu Olsen MD Primary Care Provider Unavailable Reason for Referral Specialty Diagnoses / Procedures Referred By Contact Refer red To Contact [facility] [address] [facility] [address] [place] [address] Referral ID Status Reason Start Date Expiration Date Visits Requ ested Visits Authorized [place] SALES VITAMIN CONSULTANT Encounter Details Date Type Department Care Team Description 12/01/2011 Orders Only [facility] Abstract, Provider DIAG NOSIS NOT YET [facility] DEFINED (Primary Dx) [address] [place] [address] Social History Tobacco Use Types [...] Office Visit Internal Medicine Marcy Ricketts APRN RECRUITING CONSULTANT [address] [place], [place] [address] (Wo rk) documented as of this encounter Procedures Procedure Name Priority Date/Time Associated Diagnosis Comme nts ADULT OTOLARYNGOLOGY HEMODIALYSIS CHARGE NURSE Routine 12/01/2011 DIAGNOSIS NOT YET DEFINED REFERRAL documented in this encounter Results OTOLARYNGOLOGY REFERRAL (12/01/2011) Narrative This result has an attachment that is no t available. Provider Abstract REFERRAL documented in this encounter Visit Diagnoses Diagnosis DIAGNOSIS NOT YET DEFINED - Primary documented in this encounter Care Teams Drill Press Tender Relationship Specialty Start Date End Date Matthieu Olsen MD PCP - General 12/15/01 documented as of this encounter
--- OUTSIDE RECORDS SUMMARY | 2022-09-26 20:26 | XMS_ITS | Encounter Summary ---
:1995 Author Organization [place] Address [facility] [place] [address] Care Team Providers Name Role Phone Matthieu Olsen MD Primary Care Provider Unavailable Reason for Visit Reason Onset Date Comments Chest Pain 02/20/2013 Encounter Details Date Type Department Care Team Description 02/20/2013 Telephone [facility] Matthieu Olsen MD Chest Pain [place] [address] [place] [address] Social History Tobacco Use Types Packs/Day Years [...] this encounter Miscellaneous Notes Telephone Encounter - Kandace Feng - 02/20/2013 10:46 AM CDT appt has been scheduled. Kandace Feng RN Telephone Encounter - Chato Haque MD - 02/20/2013 10:32 AM CDT Mom calling. School nurse recommending seen today. Is complaining of intermitent chest pain. Not short of breath and nurse has actually cleared him to go back to class. They (nurse and parent) feel more anxiety related but should be seen today. Please schedule with Dr. Olsen (PMD) at 2:15 for 30 minute appointment. Telephone Encounter - Nurys Artis - 02/20/2013 10:28 AM CDT Mother calling and states pt is having chest pain and numbness going down arm and wants apt to see MD. Mother advised with chest pain that they should go to ER. Mother declines and wants apt in clinic.Stressed importance due to chest pain that they should go to ER. Mother declines and wants appointment in office. Call transferred to pediatric department. Nurys Artis RN documented in this encounter Plan of Treatment Upcoming Encounters Date Type Specialty Care Team Description 11/04/2022 Office Visit Internal Medicine Marcy Ricketts APRN [employer] [address] [place], [place] [address] (Wo rk) documented as of this encounter Visit Diagnoses Not on filedocumented in this encounter Care Teams Jalousies Installer Relationship Specialty Start Date End Date Matthieu Olsen MD PCP - General 12/15/01 documented as of this encounter
--- OUTSIDE RECORDS SUMMARY | 2022-09-26 20:26 | XMS_ITS | Encounter Summary ---
:1995 Author Organization [place] Address [address] [place] [address] Care Team Providers Name Role Phone Ricardo Annalisa Yousif LEASING AGENT Primary Care Provider [phone] Reason for Visit Reason Comments Fever Encounter Details Date Type Department Care Team Description 04/10/2016 Emergency [facility] Evelio Johnson MD Fever, unspecified fever cause; [facility] Emergency Dep t EMERGENCY PHYSICIANS Elevated LFTs [address] [place], [place] [address] [facility] [address] [place], [place] [id number] (Wo rk) Social History Tobacco Use Types [...] Sign Reading Time Taken Comments Blood Pressure 134/59 04/10/2016 6:01 AM CDT Pulse 126 04/10/2016 4:16 AM CDT Temperature 37.7 ??C (99.8 ??F) 04/10/2016 6:36 AM CDT Respiratory Rate 18 04/10/2016 4:16 AM CDT Oxygen Saturation 98% 04/10/2016 6:01 AM CDT Inhaled Oxygen Concentration - - Weight 131.5 kg (290 lb) 04/10/2016 4:16 AM CDT Height 190.5 cm (6' 3) 04/10/2016 4:16 AM CDT Body Mass Index 36.25 04/10/2016 4:16 AM CDT documented in this encounter Discharge Instructions Discharge InstructionsEvelio Johnson MD - 04/10/2016 6:12 AM CDT Images from the original note were not included. Motrin 600mg every 6 hours Tylenol 650mg every 6 hours Febrile Illness, Uncertain Cause (Adult) You have [...] secretions in the nose and lungs. ?? [id number] products will not shorten the duration of [...] Feeling weak or dizzy ?? Convulsion ?? [id number] [employer]. [address] [place] [address]. All rights reserved. This information is not intended as a substitute for professional medical care. Always follow your healthcare professional's instructions. documented in this encounter Medications at Time of Discharge Medication Sig Dispensed Refills Start Date End Date ondansetron (ZOFRAN ODT) 4 Take 1 tablet (4 10 tablet 0 08/201604/13/2016 MG disintegrating tablet mg) by mouth every 8 hours as needed for nausea documented as of this encounter ED Notes Angelita Junior RN - 04/10/2016 5:50 PM CDT Spoke with Aline Seamus's mom. She states that he continues with fever, headache and has had an emesis today. They are alternating Ibuprofen 400 mg with Tylenol 650 mg every three hours, but temps are still up to 102.3 oral. Patient is taking Gator Aid and water, but is not eating solids. Reviewed lab results with Aline. Strep still shows as negative, blood cultures are showing no growth. Mom wondering about [place]. Medical decision making of note reviewed with Aline. At this time, Aline wouldlike to RTED with Seamus and have another physician evaluate him. Nurys Rubi RN - 04/10/2016 6:35 AM CDT To follow up as directed. Pt given verbal and written discharge instruxctions Antonietta Clemente RN - 04/10/2016 5:30 AM CDT Pt resting on cart. Denies complaints at this time. Offered comfort cares at this time. No acute distress noted. Will cont to monitor. Antonietta Clemente RN - 04/10/2016 4:30 AM CDT Agree with triage note. No acute distress noted at this time. Pt worried he had a food borne illnessfrom shrimp that he ate on . Will cont to monitor. Mother at bedside. Evelio Johnson MD - 04/10/2016 4:20 AM CDT History Chief Complaint: Fever HPI Seamus Barnes is a 21 year old male who presents with fever and body aches. The patient states his symptoms began two days ago. 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 He measured his temperature yesterday evening at 102.5. He visited Urgent Care at the [facility] in [place] where he received IV fluids, his temperature went down to 101, and he went home after feeling better. 45 minutes ago, he woke up and had a fever of 103.5 and came to the ED after taking 2 Advil. The patient denies coughing, sore throat, diarrhea, and vomiting. He denies any sick contacts or recent travel. Allergies: Minocycline Medications: The patient is currently on no regular medications. Past Medical History: Obesity Past Surgical History: History reviewed. No pertinent past surgical history. Family History: History reviewed. No pertinent family history. Social History: Marital Status: Single Presents to the ED with mother Tobacco Use: Passive smoke exposure - Never smoker Alcohol Use: No PCP: Annalisa Silva Review of Systems Constitutional: Positive for fever and fatigue. HENT: Negative for sore throat. Respiratory: Negative for cough. Gastrointestinal: Negative for vomiting and diarrhea. Musculoskeletal: Positive for myalgias. All other systems reviewed and are negative. Physical Exam First Vitals: BP: (!) 146/91 mmHg Pulse: 126 Temp: 101.9 ??F (38.8 ??C) Resp: 18 Height: 190.5 cm (6' 3) Weight: 131.543 kg (290 lb) SpO2: 97 % Physical Exam Constitutional: He is oriented to person, place, and time. He appears well- developed and well-nourished. HENT: Right Ear: External ear normal. Left Ear: External ear normal. Mouth/Throat: Oropharynx is clear and moist. No oropharyngeal exudate. TM's clear bilaterally Eyes: Conjunctivae are normal. Pupils are equal, round, and reactive to light. No scleral icterus. Neck: Normal range of motion. Neck supple. No meningismus Cardiovascular: Regular rhythm, normal heart sounds and intact distal pulses. Exam reveals no gallopand no friction rub. No murmur heard. Tachycardic. Pulmonary/Chest: Effort normal and breath sounds normal. No respiratory distress. He has no wheezes.He has no rales. Abdominal: Soft. Bowel sounds are normal. He exhibits no distension and no mass. There is no tenderness. Musculoskeletal: Normal range of motion. He exhibits no edema. Lymphadenopathy: He has no cervical adenopathy. Neurological: He is alert and oriented to person, place, and time. He has normal reflexes. No cranial nerve deficit. Speech clear 5/5 strength x 4 No sensory deficits Skin: Skin is warm and dry. No rash noted. Psychiatric: He has a normal mood and affect. Emergency Department Course Imaging: Chest XR, PA & LAT Negative chest. Lungs clear. Report per radiology. Radiographic findings were communicated with the patient who voiced understanding of the findings. Laboratory: CBC: WBC 10.7, HGB 14.6, PLT 156, otherwise WNL CMP: Glucose 107 (H), Calcium 8.4 (L), ALT 112 (H), AST 47 (H) otherwise WNL (Creatinine 1.16) Blood culture: in process x2 CK total: 262 Beta strep group A culture: in progress Rapid strep screen: Negative Interventions: (0504) Normal Saline 1000 mL IV (0504) Zofran 4 mg IV (0506) Tylenol 975 mg PO Emergency Department Course: Nursing notes and vitals reviewed. I performed an exam of the patient as documented above. A peripheral IV was established. Blood was drawn from the patient. This was sent for laboratory testing, findings above. The patient was sent for a Chest Xray while in the emergency department, findings above. (0610) The patient states he drank alcohol one month ago but nothing since. His heart rate is 95. I personally reviewed the laboratory results with the patient and answered all related questions prior to discharge. Findings and plan explained to the patient and his mother. Patient discharged home with instructionsregarding supportive care, medications, and reasons to return. The importance of close follow-up wasreviewed. The patient was prescribed Zofran. Impression & Plan Medical Decision Making: Seamus Barnes, patient presents with fever and generalized myalgia and weakness. The patient initially was tachycardic and febrile. He was under dosing himself with Advil. We did give him a Tylenol here, fluids. Labs were not showing any concern with the white count. CK is normal. Electrolytes are normal. He interestingly has a mild elevation in his AST and ALT. He has no abdominal pain. I do not believe this is heat stroke. I think this is likely a viral infection. Cultures are pending, but at this point he does feel better and I think he can be treated and followed up as an outpatient. He otherwise has no issues. He tells me that he does drink, but has not had any alcohol in a month, so I do not believe his liver function tests are due to alcohol at this point. He does need to have a repeat evaluation. He will follow up with [facility] with his regular doctor on Tuesday for re-evaluation. Patient should keep pushing fluids and I did ask him to do that today and to avoid alcohol and caffeine until he is better. I discussed all this with mom present and she is comfortable with the plan and will make sure to monitor him closely. He should not return to work until his fever is gone for 24 hours with medication and voiced understanding of that. If symptoms are worsening, he has intractable pain, fever, any concerns, then he needs to come back right away Diagnosis: ICD-10-CM 1. Fever, unspecified fever cause R50.9 2. Elevated LFTs R79.89 Disposition: Discharge to home. Discharge Medications: New Prescriptions ONDANSETRON (ZOFRAN ODT) 4 MG DISINTEGRATING TABLET Take 1 tablet (4 mg) by mouth every 8 hours as needed for nausea Dulce Castro 04/10/2016 [facility] EMERGENCY DEPARTMENT I, Dulce Castro, nessa serving as a scribe on 04/10/2016 at 4:20 AM to personally document services performed by Dr. Johnson based on my observations and the provider's statements to me. Evelio Johnson MD 04/11/16 0127 Monica Madrigal RN - 04/10/2016 4:13 AM CDT Was at [facility] last evening at 6 pm Dx with heat stroke Iv fluids given Sent home to stay out of heat [place] better after IV Now woke at 0350 with fever at home 103 Was given ibuprofen And here for eval Face flushed documented in this encounter Plan of Treatment Upcoming Encounters Date Type Specialty Care Team Description 11/04/2022 Office Visit Internal Medicine aMrcy Ricketts APRN LITIGATION LEGAL SECRETARY [address] [place], [place] [address] (Wo rk) documented as of this encounter Procedures Procedure Name Priority Date/Time Associated Comments Diagnosis BLOOD CULTURE STAT 04/10/2016 5:30 AM Fever, unspecified Re sults for this CDT fever cause procedure are i n the results section. XR CHEST 2 VIEWS STAT 04/10/2016 5:24 AM Resul ts for this CDT procedure are i n the results section. RAPID STREP SCREEN STAT 04/10/2016 5:02 AM Res ults for this THROAT SWAB CDT procedure are i n the results section. CBC WITH PLATELETS & STAT 04/10/2016 5:02 AM R esults for this DIFFERENTIAL CDT procedure are i n the results section. COMPREHENSIVE STAT 04/10/2016 5:02 AM Results for this METABOLIC PANEL CDT procedure ar e in the results section. CK TOTAL STAT 04/10/2016 5:02 AM Results f or this CDT procedure are i n the results section. BLOOD CULTURE STAT 04/10/2016 5:02 AM Fever, unspecified Re sults for this CDT fever cause procedure are i n the results section. BETA HEMOLYTIC STREP Routine 04/10/2016 5:02 AM Fever, unspeci fied Results for this GROUP A CULTURE CDT fever cause procedure ar e in the results section. documented in this encounter Results Blood culture (04/10/2016 5:30 AM CDT) [facility] Method Time Signature Specimen Blood Left [facility] Special Aerobic and [facility] anaerobic [facility] received Culture Micro No growth INFECTIOUS DISEASE DIAGNOSTIC LABORATORY Micro Report FINAL INFECTIOUS Status 04/16/2016 DISEASE DIAGNOSTIC LABORATORY Specimen Anatomical Collection Method Collection Time Receive d Time (Source) Location / / Volume Laterality Blood specimen 04/10/2016 5:30 AM 016 5:36 (specimen) CDT AM CDT Evelio Johnson MD LAB - MICRO GENERAL ORDERABL ES Performing Organization Address City/State/ZIP Code Phon e Number INFECTIOUS DISEASES [address] [place] [address] DIAGNOSTIC LABORATORY, [address] [address], [facility] [address] [phone] , [facility] [phone] INFECTIOUS DISEASE [address] [place] [address], [facility] DIAGNOSTIC LABORATORY Chest XR, PA & LAT (04/10/2016 5:24 AM CDT) Anatomical Region Laterality Modality Chest Computed Radiography Specimen (Source) Anatomical Location Collection Method / Collectio n Time Received Time / Laterality Volume Impressions 04/10/2016 5:28 AM CDT IMPRESSION: Negative chest. Lungs clear. ? ESTHELA RIDLEY MD Narrative 04/10/2016 5:28 AM CDT CHEST TWO VIEWS ??04/10/2016 5:24 AM HISTORY: ? Fever. COMPARISON: 12/19/2006. Procedure Note Esthela Ridley MD - 04/10/2016Forma tting of this note might be different from the original. CHEST TWO VIEWS 04/10/2016 5:24 AM HISTORY: Fever. COMPARISON: 12/19/2006. IMPRESSION: Negative chest. Lungs clear. ESTHELA RIDLEY MD Evelio Johnson MD IMG DIAGNOSTIC IMAGING ORDER CARLEE Beta strep group A culture (04/10/2016 5:02 AM CDT) Component Value Ref Test Analysis Performed At Patholo gist Range Method Time Signature Specimen Throat [facility] Special Specimen [facility] (white cap[facility] B[facility] Culture Micro No Beta INFECTIOUS Streptococcus DISEASE isolated DIAGNOSTIC LABORATORY Micro Report FINAL 04/13/2016 INFECTIOUS Status DISEASE DIAGNOSTIC LABORATORY Specimen Anatomical Collection Method Collection Time Receive d Time (Source) Location / / Volume Laterality 04/10/2016 5:02 AM 6 5:37 CDT AM CDT Evelio Johnson MD LAB - MICRO GENERAL ORDERABL ES Performing Organization Address City/[facility]/ZIP Code Phon e Number INFECTIOUS DISEASES [address] [place] [address] DIAGNOSTIC LABORATORY, [facility] [address] [place], [place] [address] [place] [address] [facility] BANK INFECTIOUS DISEASE [address] DIAGNOSTIC LABORATORY CK total (04/10/2016 5:02 AM CDT) P athologist Signature CK Total 262 30 - 300 [facility] Specimen Anatomical Collection Method Collection Time Receive d Time (Source) Location / / Volume Laterality Blood specimen 04/10/2016 5:02 AM 016 5:18 (specimen) CDT AM CDT Evelio Johnson MD LAB - BLOOD ORDERABLES Performing Organization Address City/State/ZIP Code Phon e Number M [facility] [address] [place], [place] [address] [facility] [address] [place], [place] [address], [facility] [phone] Rapid strep screen (04/10/2016 5:02 AM CDT) Component Value Ref Test Analysis Performed At [facility] gist Range Method Time Signature Specimen Throat [facility] Rapid Strep A NEGATIVE: No Group A strepto coccal antigen detected by immunoassay, await [place] Screen culture report. [facility] Micro Report FINAL 04/10/2016 [facility] Specimen Anatomical Collection Method Collection Time Receive d Time (Source) Location / / Volume Laterality Specimen from 04/10/2016 5:02 AM 04/10/20 16 5:18 throat CDT AM CDT (specimen) Evelio Johnson MD LAB - MICRO GENERAL ORDERABL ES Performing Organization Address City/State/ZIP Code Phon e Number M [facility] [address], [place] [address] [facility] [address], [place] [address], [facility] [phone] Blood culture (04/10/2016 5:02 AM CDT) [facility] Method Time Signature Specimen Blood Right [facility] Special Aerobic and [place] Requests anaerobic [facility] received Culture Micro No growth INFECTIOUS DISEASE DIAGNOSTIC LABORATORY Micro Report FINAL INFECTIOUS Status 04/16/2016 DISEASE DIAGNOSTIC LABORATORY Specimen Anatomical Collection Method Collection Time Receive d Time (Source) Location / / Volume Laterality Blood specimen STRUCTURE OF RIGHT 04/10/2016 5:02 AM 0 04/10/2016 5:19 (specimen) HAND / Unknown CDT AM CDT Evelio Johnson MD LAB - MICRO GENERAL ORDERABL ES Performing Organization Address City/State/ZIP Code Phon e Number INFECTIOUS DISEASES [address] [place] [address] DIAGNOSTIC LABORATORY, [phone] [place] [address] [address], [place] [address], [facility] [phone] INFECTIOUS DISEASE [address] [phone], [facility] DIAGNOSTIC LABORATORY (ABNORMAL) Comprehensive metabolic panel (04/10/2016 5:02 AM CDT) P athologist Signature Sodium 137 133 - 144 [place] mmol/L [facility] Potassium 3.8 3.4 - 5.3 [place] mmol/L [facility] Chloride 104 94 - 109 [place] mmol/L [facility] Carbon Dioxide 26 20 - 32 [place] mmol/L [facility] Anion Gap 7 3 - 14 [place] mmol/L [facility] Glucose 107 (H) 70 - 99 [place] mg/dL [facility] Urea Nitrogen 13 7 - 30 [place] mg/dL [facility] Creatinine 1.16 0.66 - [place] 1.25 mg/dL [facility] GFR Estimate 80 >60 [place] mL/min/1.[address] [place] [address] HOSPITAL Comment: Non GFR Calc GFR Estimate If Black >90 >60 mL/min/1.7m2 F [facility] GFR Calc HOSP ITAL Calcium 8.4 (L) 8.5 - 10.1 mg/dL [facility] Bilirubin Total 0.6 0.2 - 1.3 mg/dL [facility] Albumin 3.7 3.4 - 5.0 g/dL [facility] Protein Total 7.2 6.8 - 8.8 g/dL [facility] Alkaline Phosphatase 123 40 - 150 U/L [facility] ALT 112 (H) 0 - 70 U/L [facility] AST 47 (H) 0 - 45 U/L [facility] Specimen Anatomical Collection Method Collection Time Receive d Time (Source) Location / / Volume Laterality Blood specimen 04/10/2016 5:02 AM 016 5:18 (specimen) CDT AM CDT Evelio Johnson MD LAB - BLOOD ORDERABLES Performing Organization Address City/State/ZIP Code Phon e Number M [facility] [address] [place], [place] [address] [facility] [address] [phone] CBC with platelets differential (04/10/2016 5:02 AM CDT) Patholo gist Method Time Signature WBC 10.7 4.0 - [facility] 11.0 [facility] 10e9/L [facility] RBC Count 4.47 4.4 - 5.9 [place] 10e12/L [facility] Hemoglobin 14.6 13.3 - [place] 17.7 g/dL [facility] Hematocrit 42.3 40.0 - [place] 53.0 % [facility] MCV 95 78 - 100 [place] fl [facility] MCH 32.7 26.5 - [place] 33.0 pg [facility] MCHC 34.5 31.5 - [place] 36.5 g/dL [facility] RDW 13.0 10.0 - [place] 15.0 % [facility] Platelet Count 156 150 - [id number] [place] [address] Diff Method Automated [facility] % Neutrophils 77.2 % [facility] % Lymphocytes 12.2 % [facility] % Monocytes 10.0 % [facility] % Eosinophils 0.1 % [facility] % Basophils 0.2 % [facility] % Immature 0.3 % [place] Granulocytes [facility] Nucleated RBCs 0 0 /100 [facility] Absolute 8.2 1.6 - 8.3 [place] Neutrophil [facility] Absolute 1.3 0.8 - 5.3 [place] Lymphocytes [address] [place] [address] Absolute 1.1 0.0 - 1.3 [place] Monocytes [address] [place] [address] Absolute 0.0 0.0 - 0.7 [place] Eosinophils [address] [place] [address] Absolute 0.0 0.0 - 0.2 [place] Basophils [address] [place] [address] Abs Immature 0.0 0 - 0.4 [place] Granulocytes [address] [place] [address] Absolute 0.0 [place] Nucleated RBC [facility] Specimen Anatomical Collection Method Collection Time Receive d Time (Source) Location / / Volume Laterality Blood specimen 04/10/2016 5:02 AM 016 5:18 (specimen) CDT AM CDT Evelio Johnson MD LAB - BLOOD ORDERABLES Performing Organization Address City/State/ZIP Code Phon e Number M [facility] [address] [place], [place] [address] [facility] [address] [phone] documented in this encounter Visit Diagnoses Diagnosis Fever, unspecified fever cause Elevated LFTs Other abnormal blood chemistry documented in this encounter Administered Medications Inactive Administered Medications - up to 3 most recent administrations Medication Order MAR Action Action Date Dose Rate Site 0.9% sodium chloride BOLUS New Bag 04/10/2016 5:04 AM CDT 1,000 mLs 1000 mL/hr Intravenous, 1,000 mL, ONCE, at 1,000 mL/hr, Administer over 1 Hours, On 04/10/16 at 0432, For 1 dose acetaminophen (TYLENOL) tablet 975 mg Given 04/10/2016 5:06 AM CDT 975 mg 975 mg, Oral, ONCE, On 04/10/16 at 0432, For 1 dose, Maximum acetaminophen dose from all sources = 75 mg/kg/day not to exceed 4 grams/day. ondansetron (ZOFRAN) injection 4 mg Given 04/10/2016 5:04 AM CDT 4 mg 4 mg, Intravenous, ONCE PRN, nausea, vomiting, Administer over 2-5 Minutes, Starting on 04/10/16 at 0431, For 1 dose documented in this encounter Active and Recently Administered Medications Times are shown in CDT. Scheduled Medication Order 04/08/2016 04/09/2016 04/10/2016 0.9% sodium chloride BOLUS (COMPLETED) 0504 (New Bag - Provider: Antonietta Clemente RN)0613 (Stopped - Provider: Antonietta Clemente RN) Intravenous, 1,000 mL, ONCE, at 1,000 mL /hr, Administer over 1 Hours, On 04/10/16 at 0432, For 1 dose acetaminophen (TYLENOL) tablet 975 mg (COMPLETED) 0506 (Given - Provider: Antonietta Clemente RN) 975 mg, Oral, ONCE, 04/10/16 at 0432, For 1 dose, Maximum acetaminophen dose from all sources = 75 mg/kg/day not to exceed 4 grams/day. PRN Medication Order 04/08/2016 04/09/2016 04/10/2016 ondansetron (ZOFRAN) injection 4 mg (COMPLETED) 0504 (Given - Provider: Antonietta Clemente RN) 4 mg, Intravenous, ONCE PRN, nausea, vom iting, for 2 Minutes, Starting 04/10/16 at 0431, For 1 dose documented in this encounter Care Teams Remote Mortgage Underwriter Relationship Specialty Start Date End Date Annalisa Silva, BETTY PCP - General Nurse Practitioner - Adult 08/26/15 [address] [place] [address] documented as of this encounter
--- OUTSIDE RECORDS SUMMARY | 2022-09-26 20:26 | XMS_ITS | Encounter Summary ---
:1995 Author Organization [facility] Address [facility] [place] [address] Care Team Providers Name Role Phone Matthieu Olsen MD Primary Care Provider Unavailable Reason for Visit Reason Onset Date Comments Other 06/22/2012 Encounter Details Date Type Department Care Team Description 06/22/2012 Telephone [facility] Senthil Jenkins DO Other Orthopedic Care-[facility] ORTHOPEDIC [facility] Sports Med [address] [address] [address] [place] [address] [place] [address] [phone] Social History Tobacco Use Types Packs/Day Years [...] Telephone Encounter - Senthil Jenkins DO - 06/22/2012 2:28 PM CDT Left a voicemail message for mother: Recommend rest from football until seen earlier next week. Telephone Encounter - Theresa Briones RN - 06/22/2012 10:46 AM CDT Pt's mother calls today stating her son's neck pain is now causing pt. To have difficulty moving hishead and back. She also states the pain is radiating to bilateral upper arms. Pt claims no new injury during practice. Pt. Has been using Ibuprofen for pain and icing, but not consistently. Pt. Now needs clearance to go back to practice. Would you like to see him back in clinic? Mother does not feel this is necessary. An appointment was scheduled for 06/23/12 at 10:30. Please advise. Theresa Briones RN documented in this encounter Plan of Treatment Upcoming Encounters Date Type Specialty Care Team Description 11/04/2022 Office Visit Internal Medicine Marcy Ricketts APRN HEALTH CARE ADMINISTRATOR [address] [place], [place] [address] (Wo rk) documented as of this encounter Visit Diagnoses Not on filedocumented in this encounter Care Teams Wire Setter Relationship Specialty Start Date End Date Matthieu Olsen MD PCP - General 12/15/01 documented as of this encounter
--- OUTSIDE RECORDS SUMMARY | 2022-09-26 20:27 | XMS_ITS | Encounter Summary ---
:1995 Author Organization [place] Address [address] [place] [address] Care Team Providers Name Role Phone Matthieu Olsen MD Primary Care Provider Unavailable Reason for Referral - Closed Specialty Diagnoses / Procedures Referred By Contact Refer red To Contact Diagnoses Moderate major depression (H) Generalised anxiety disorder [facility] [address] [place] [address] Referral ID Status Reason Start Date Expiration Date Visits Requ ested Visits Authorized [id number] Closed 12/31/2010 12/31/2010 1 1 MATIC I THREADING MACHINE FEEDER Reason for Visit Reason Comments Recheck Medication also ringing in ears for mos Encounter Details Date Type Department Care Team Description 12/31/2010 Office Visit [facility] Matthieu Olsen Anxiety attack (Primary Dx); Clinic Meghan Hobson MD Moderate major depression (H ); [address] Generalised anx iety disorder; [place] [address] Social History Tobacco Use Types [...] Sign Reading Time Taken Comments Blood Pressure 104/58 12/31/2010 11:12 AM AUTOMATIC I THREADING MACHINE FEEDER Pulse - - Temperature 36.6 ??C (97.9 ??F) 12/31/2010 11:12 AM AUTOMATIC I THREADING MACHINE FEEDER Respiratory Rate - - Oxygen Saturation - - Inhaled Oxygen Concentration - - Weight 82.6 kg (182 lb) 12/31/2010 11:12 AM AUTOMATIC I THREADING MACHINE FEEDER Height 174 cm (5' 8.5) 12/31/2010 11:12 AM AUTOMATIC I THREADING MACHINE FEEDER Body Mass Index 27.27 12/31/2010 11:12 AM AUTOMATIC I THREADING MACHINE FEEDER Body Mass Index Percentile 95.67 % 12/31/2010 11:[address] Growth Chart: [facility] (Boys, 2-20 Years) documented in this encounter Progress Notes Matthieu Olsen - 01/12/2011 10:20 PM CDT 16 yr old was evaluated for major depression 3 months ago and started on zoloft In for f/u He is doing somewhat better but still has depressive symptoms(PHQ score improved from 23 to 11,the most concerning symptoms are feeling down and bad about himself and poor concentration.He has been seeing a therapist who recommended trying calexa instead of zoloft No suicidal thoughts or plans. Will start calexa 20 mg ,increase to 40 mg after 1 week if needed Continue counseling Side effects of calexa including but not limited to worsening of suicidal thoughts discussed. Spent 15 minutes face to face documented in this encounter Nursing Notes 12/31/2010 11:15 AM CST >> FRANCISCO Andre Dec 31, 2010 11:13 AM Patient presents with: Recheck Medication - also ringing in ears for mos Initial BP 104/58 Temp(Src) 97.9 ??F (36.6 ??C) (Oral) Ht 5' 8.5 (1.74 m) Wt 182 lb (82.555 kg) Estimated Body mass index is 27.27 kg/(m^2) as calculated from the following: Height as of this encounter: 5' 8.5(1.74 m). Weight as of this encounter: 182 lb(82.555 kg).. BP completed using cuff size: regular documented in this encounter Plan of Treatment Upcoming Encounters Date Type Specialty Care Team Description 11/04/2022 Office Visit Internal Medicine Marcy Ricketts APRN PRINCIPAL CONSULTANT [address] [place], [place] [address] (Wo rk) Scheduled Referrals Name Type Priority Associated Diagnoses Order S [facility] MENTAL HEALTH REFERRAL Referral Routine Moderate Major Ord ered: 12/31/2010 Depression (H) Generalised Anxiety Disorder documented as of this encounter Visit Diagnoses Diagnosis Anxiety attack - Primary Panic disorder without agoraphobia Moderate major depression (H) Major depressive disorder, single episod e, moderate Generalised anxiety disorder Generalized anxiety disorder Acne Other acne documented in this encounter Care Teams Gas Derrick Operator Relationship Specialty Start Date End Date Matthieu Olsen MD PCP - General 12/15/01 documented as of this encounter
--- OUTSIDE RECORDS SUMMARY | 2022-09-26 20:27 | XMS_ITS | Encounter Summary ---
:1995 Author Organization [place] Address [address] [facility] [place] [address] Care Team Providers Name Role Phone Matthieu Olsen MD Primary Care Provider Unavailable Reason for Visit Reason Comments Pharyngitis Encounter Details Date Type Department Care Team Description 09/13/2007 Office Visit [facility] Chiqui Rubi ACUTE PHARYNGITIS Clinic [place]ia Davidson MD (Primary Dx) [address] [place] [id number] (Wo rk) Social History Tobacco Use Types Packs/Day Years Used Date Smoking Tobacco: Passive Smoke Exposure - Never Smoker Comments: dad smokes outside Alcohol Use Standard Drinks/Week Comments Not Asked 0 (1 standard drink = 0.6 oz [...] Sign Reading Time Taken Comments Blood Pressure - - Pulse - - Temperature 36.5 ??C (97.7 ??F) 09/13/2007 3:45 PM TOOL OR DIE DRAWING CHECKER Respiratory Rate - - Oxygen Saturation - - Inhaled Oxygen Concentration - - Weight 67.1 kg (148 lb) 09/13/2007 3:45 PM TOOL OR DIE DRAWING CHECKER Height - - Body Mass Index - - documented in this encounter Progress Notes Chiqui Rubi - 09/26/2007 10:04 AM CST SUBJECTIVE: Seamus is a 12 year old male who presents with his mother today with symptoms of sore throat for 7-8days duration. The sore throat has been off and on for the past week. Fever absent. Associated symptoms include no other obvious symptoms. Pertinent negatives include abdominal pain, vomiting, shortness of breath, rash, mattery or red eyes, no decrease in appetite, ear pain, lethargy, congestion, runny nose, fever, diarrhea or cough. No previous treatment of these symptoms. Ill contacts include: several kids at school with strep Physical Exam: Temp (Src) 97.7 (Oral) Wt 148 lbs (67.1kg) 98.65% of growth percentile based on [id number]. General: non-toxic, in no apparent distress, well developed and well nourished, in no respiratory distress and acyanotic and alert Skin: no suspicious lesions or rashes Head: atraumatic, normocephalic, symmetric Eye: conjunctiva clear bilaterally Neck: normal, supple and no adenopathy ENT: mild tonsillar erythema, tonsils 2+ in size bilaterally, no tonsillar exudates, no vesicles noted in the mouth, TM's pearly astudillo, normal light reflex bilateral and oral mucous membranes moist Chest/Lungs: clear to auscultation bilaterally without wheeze or crackles CV: regular rate and rhythm and no murmurs, rubs, or gallops Abdomen: bowel sounds present, soft, non-tender, non distended and no hepato or splenomegaly Rapid Strep NEGATIVE Assessment: Non-Strep Pharyngitis Plan: Symptomatic treatment reviewed. Encourage fluids including Pedialyte, popsicles and water. May use acetaminophen, ibuprofen as needed for symptoms. Follow-up or call the clinic if no improvment in 2-3 days OR DIE DRAWING CHECKER documented in this encounter Nursing Notes 09/13/2007 3:45 PM CST >> REMA HARE 09/13/2007 3:55 pm Seamus Barnes presents for sorethroat off and on x 1 wk Worse since last Sun , no noted fevers . Initial Temp (Src) 97.7 (Oral) Wt 148 lbs (67.1kg) Estimated Body mass index is 28.42 kg/(m^2) as calculated from: Height of 5' .5 (1.537 m) as of 09/05/07 Weight of 148 lbs (67.132 kg) as of this encounter. BP completed using cuff size: NA (Not Taken) documented in this encounter Plan of Treatment Upcoming Encounters Date Type Specialty Care Team Description 11/04/2022 Office Visit Internal Medicine Marcy Ricketts APRN HOTEL CONCIERGE [address] [place], [place] [address] (Wo rk) documented as of this encounter Procedures Procedure Name Priority Date/Time Associated Diagnosis Comme nts HCL BETA STREP Routine 09/13/2007 4:09 PM Acute Pharyngitis Re sults for this CONFIRM TOOL OR DIE DRAWING CHECKER procedure are i n the results section. HCL STREP GROUP A Routine 09/13/2007 4:09 PM Acute Pharyngitis Results for this AG (RAPID) TOOL OR DIE DRAWING CHECKER procedure are i n the results section. documented in this encounter Results BETA STREP CONFIRM (09/13/2007 4:09 PM TOOL OR DIE DRAWING CHECKER) Component Value Ref Test Analysis Performed At [facility] Twitmusic Range Method Time Signature Specimen Throat [facility] Culture Micro No Beta [place] Streptococcus [facility] isolated CLINIC LAB Report status FINAL 09/15/2007 [facility] Specimen Anatomical Collection Method Collection Time Receive d Time (Source) Location / / Volume Laterality 09/13/2007 4:09 PM 7 4:14 TOOL OR DIE DRAWING CHECKER PM TOOL OR DIE DRAWING CHECKER Chiqui Rubi MD LABORATORY Performing Organization Address City/State/ZIP Code Phon e Number [facility] [address] [place], [place] [address] [address] [facility] STREP GROUP A AG (RAPID) (09/13/2007 4:09 PM TOOL OR DIE DRAWING CHECKER) Component Value Ref Test Analysis Performed At [facility] Twitmusic Range Method Time Signature Specimen Throat [facility] Rapid Strep A NEGATIVE: No Group A strepto coccal antigen detected by immunoassay, await [place] Screen culture report. [facility] Report status FINAL 09/13/2007 [facility] Specimen Anatomical Collection Method Collection Time Receive d Time (Source) Location / / Volume Laterality 09/13/2007 4:09 PM 7 4:14 TOOL OR DIE DRAWING CHECKER PM TOOL OR DIE DRAWING CHECKER Chiqui Rubi MD LABORATORY Performing Organization Address City/State/ZIP Code Phon e Number [facility] [address] [place], [place] [address] [address] [facility] documented in this encounter Visit Diagnoses Diagnosis Acute pharyngitis - Primary documented in this encounter Care Teams Mortar Maker Relationship Specialty Start Date End Date Matthieu Olsen MD PCP - General 12/15/01 documented as of this encounter
--- OUTSIDE RECORDS SUMMARY | 2022-09-26 20:27 | XMS_ITS | Encounter Summary ---
:1995 Author Organization [place] Address [address] [facility] [place] [address] Care Team Providers Name Role Phone Matthieu Olsen MD Primary Care Provider Unavailable Encounter Details Date Type Department Care Team Description 06/03/2008 Medical Correspondence [facility] Larissa Olsen URGENT CARE VISIT Clinic MD [address] [place] [address] Social History Tobacco Use Types [...] Office Visit Internal Medicine Marcy Ricketts APRN GROUND DEFENCE OFFICER [address] [place], [place] [address] (Wo rk) documented as of this encounter Visit Diagnoses Not on filedocumented in this encounter Care Teams Survey Project Manager Relationship Specialty Start Date End Date Matthieu Olsen MD PCP - General 12/15/01 documented as of this encounter
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
--- OUTSIDE RECORDS SUMMARY | 2022-09-26 20:27 | XMS_ITS | Encounter Summary ---
:1995 Author Organization [place] Address [facility] [place] [address] Care Team Providers Name Role Phone Matthieu Olsen MD Primary Care Provider Unavailable Reason for Visit Reason Onset Date Comments Anxiety 06/19/2010 Encounter Details Date Type Department Care Team Description 06/19/[address] [facility] Matthieu Olsen MD [facility] [address] [place] [address] Social History Tobacco Use [...] Miscellaneous Notes Telephone Encounter - Matthieu Olsen - 06/19/2010 9:23 AM CDT Talked to mom at length Pt has been seeing a psychologist. Mom not in favor of kid being on anti-anxiety or antidepressant medication Was also seen earlier this week by Mom advised that I need report from his psychologist Also some use of recreational drugs recently Then I need to see him on Tuesday Advise to take him to ER if any thoughts of hurting him self or others which mom denies Telephone Encounter - Michelle Otero - 06/19/2010 9:14 AM CDT Mom called to request an appointmet with Dr. Olsen today. Pt was seen on Tuesday with Dr. Kumar. Pt is feeling anxious and nervous. Michelle Otero LPN documented in this encounter Plan of Treatment Upcoming Encounters Date Type Specialty Care Team Description 11/04/2022 Office Visit Internal Medicine Marcy Ricketts APRN FOOD ASSEMBLER [address] [place], [place] [address] (Wo rk) documented as of this encounter Visit Diagnoses Not on filedocumented in this encounter Care Teams Sample Weaver Relationship Specialty Start Date End Date Matthieu Olsen MD PCP - General 12/15/01 documented as of this encounter
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
--- OUTSIDE RECORDS SUMMARY | 2022-09-26 20:27 | XMS_ITS | Encounter Summary ---
:1995 Author Organization [place] Address [facility] [place] [address] Care Team Providers Name Role Phone Matthieu Olsen MD Primary Care Provider Unavailable Encounter Details Date Type Department Care Team Description 11/07/2007 Emergency room Landen Valderrama MD EMERGENCY PHYSIC [facility] [address] [place], [place] [address] (Wo rk) Social History Tobacco Use Types [...] documented as of this encounter Progress Notes Landen Valderrama - 11/16/2007 5:50 PM CONTROLS OPERATOR MOLDED GOODS FINAL CHIEF COMPLAINT: Nausea and headache. HISTORY OF PRESENT ILLNESS: Nasima Maciel is an 12-year-old little boy who has had a ski accident last . He had a head CT and x-rays done and they were normal. That was done in [facility]. Mother states they gave no instructions about head injury. The patient had a headache and nausea since that is not getting worse. If anything it has gotten a little bit better. He denies a ny focal neural symptoms. No problems with coordination and speech, no double vision, blurred vision. No other symptoms other than nausea, headache and dizziness. PAST MEDICAL HISTORY: No previous injury. MEDICATIONS: None. ALLERGIES: No known drug allergies. SOCIAL HISTORY: Lives at home with parents. He is in the fifth grade and likes school. He plays hockey at the [employer] level and skis. REVIEW OF SYSTEMS: See HPI. All other systems negative. OBJECTIVE: VITAL SIGNS: Temperature is 98.5, heart rate 59, respiratory 20, blood pressure 95/50 and room air sat 100%. CONSTITUTIONAL: He appears his stated age, alert and oriented x3. HEENT: PERRLA, EOMI. TMs clear. Pharynx is clear, moist oral mucosa. Nares patent. NECK: No adenopathy. Head is atraumatic and normocephalic. He has active range of the neck. CARDIOVASCULAR: Regular S1, S2, no added sounds. RESPIRATORY: No increased work of breathing. LUNGS: Clear. NEUROLOGIC: Mental status as above. Cranial nerves II through XII grossly intact. No focal, motor or sensory deficits present. IMPRESSION: Closed head injury with concussion symptoms. PLAN: Alternate Tylenol 600 mg with ibuprofen 600 mg every four hours as needed. Avoid contact activity until completely without symptoms for one week. Follow with PMD in seven days for reevaluation. Electronically signed on 11/16/2007 17:49 by LANDEN VALDERRAMA MD MT: [id number] Name: NASIMA MACIEL Account: [id number] : 1995 Visit Date: 11/07/2007 Document: [id number] cc: Matthieu Olsen MD ROLS OPERATOR MOLDED GOODS documented in this encounter Plan of Treatment Upcoming Encounters Date Type Specialty Care Team Description 11/04/2022 Office Visit Internal Medicine Marcy Ricketts APRN TRACER POWDER BLENDER [address] [place], [place] [address] (Wo rk) documented as of this encounter Visit Diagnoses Not on filedocumented in this encounter Care Teams Cell Reliner Relationship Specialty Start Date End Date Matthieu Olsen MD PCP - General 12/15/01 documented as of this encounter
--- OUTSIDE RECORDS SUMMARY | 2022-09-26 20:27 | XMS_ITS | Encounter Summary ---
:1995 Author Organization [place] Address [address] [facility] [place] [address] Care Team Providers Name Role Phone Matthieu Olsen MD Primary Care Provider Unavailable Encounter Details Date Type Department Care Team Description 05/19/2008 Medical Correspondence [facility] Larissa Olsen [facility] Meghan Hobson MD [address] [place] [address] Social History Tobacco Use Types [...] Office Visit Internal Medicine Marcy Ricketts APRN SCREEN TENDER [address] [place], [place] [address] (Wo rk) documented as of this encounter Visit Diagnoses Not on filedocumented in this encounter Care Teams Health Educator Relationship Specialty Start Date End Date Matthieu Olsen MD PCP - General 12/15/01 documented as of this encounter
--- OUTSIDE RECORDS SUMMARY | 2022-09-26 20:27 | XMS_ITS | Encounter Summary ---
:1995 Author Organization [place] Address [address] [place] [address] Care Team Providers Name Role Phone Matthieu Olsen MD Primary Care Provider Unavailable Encounter Details Date Type Department Care Team Description 06/26/2010 Historic Results [facility] PRIMARY CA RE Chandana Pavon MD [address] [place], [place] [address] PROGRA [phone] [place], [place] [address] (Wo rk) Social History Tobacco Use Types [...] Office Visit Internal Medicine Marcy Ricketts APRN HEEL MOLDER [address] [place], [place] [address] (Wo rk) documented as of this encounter Procedures Procedure Name Priority Date/Time Associated Diagnosis Comme nts DRUG ABUSE SCREEN 8 STAT 06/26/2010 11:45 AM R esults for this URINE (UR) CDT procedure are i n the results section. documented in this encounter Results Drug abuse screen 8 urine (UR) (06/26/2010 11:45 AM CDT) [facility] Method Time Signature Amphetamine Qual Negative NEG MISYS Urine Comment: Cutoff for a negative amphetam ine is 500 ng/mL or less. Ethanol Qual Urine Negative NEG MISYS Comment: Cutoff for a negative urine et hanol is 50 mg/dL or less. Opiates Qualitative Urine Negative NEG MISY S Comment: Cutoff for a negative opiate i s 300 ng/mL or less. PCP Qual Urine Negative NEG MISYS Comment: Cutoff for a negative PCP is 2 5 ng/mL or less. Benzodiazepine Qual Urine Negative NEG MISY S Comment: Cutoff for a negative benzodia zepine is 200 ng/mL or less. Barbiturates Qual Urine Negative NEG MISYS Comment: Cutoff for a negative barbitur ate is 200 ng/mL or less. Cocaine Qual Urine Negative NEG MISYS Comment: Cutoff for a negative cocaine is 300 ng/mL or less. Cannabinoids Qual Urine Negative NEG MISYS Comment: Cutoff for a negative cannabin oid is 50 ng/mL or less. Specimen Anatomical Collection Method Collection Time Receive d Time (Source) Location / / Volume Laterality 06/26/2010 11:45 06/26/2010 AM CDT 11:44 AM CDT Chandana Pavon MD LAB - URINE ORDERABLES Performing Organization Address City/State/ZIP Code Phon e Number MISYS documented in this encounter Visit Diagnoses Not on filedocumented in this encounter Care Teams Fluorescent Lamp Replacer Relationship Specialty Start Date End Date Matthieu Olsen MD PCP - General 12/15/01 documented as of this encounter
--- OUTSIDE RECORDS SUMMARY | 2022-09-26 20:27 | XMS_ITS | Encounter Summary ---
:1995 Author Organization [place] Address [address] [facility] [place] [address] Care Team Providers Name Role Phone Matthieu Olsen MD Primary Care Provider Unavailable Reason for Visit Reason Comments Consult concerns about possible focu sing issues Encounter Details Date Type Department Care Team Description 01/06/2010 Office Visit [facility] Matthieu Olsen Problem Clinic Meghan Hobson MD (Primary Dx) [address] [place] [address] Social History Tobacco Use Types [...] Sign Reading Time Taken Comments Blood Pressure 116/60 01/06/2010 3:12 PM BELT SANDER STONE Pulse - - Temperature 37.1 ??C (98.7 ??F) 01/06/2010 3:12 PM BELT SANDER STONE Respiratory Rate - - Oxygen Saturation - - Inhaled Oxygen Concentration - - Weight 80.1 kg (176 lb 8 oz) 01/06/2010 3:12 PM BELT SANDER STONE Height 165.7 cm (5' 5.25) 01/06/2010 3:12 PM BELT SANDER STONE Body Mass Index 29.15 01/06/2010 3:12 PM BELT SANDER STONE Body Mass Index Percentile 97.83 % 01/06/2010 3:12 PM CS T Growth Chart: [facility] (Boys, 2-20 Years) documented in this encounter Progress Notes Matthieu Olsen - 01/13/2010 12:00 PM CDT 15 yr old in with mom as he is concerned that he might have ADD.he says he has difficulty focusing in the class and his mind wanders off and he day dreams. Mom however feels that she is not sure if he has ADD as he is still getting good grades-As and Bs This concern of his has been for this school yr and not since he was in 2nd or 3rd grade. He has some friends who have ADD and take medication and he is wondering if medication will help himdo better. No other behavior issues,denies symptoms of depression or anxiety.denies using street drugs No f/h of ADD. and early development history normal No FIELD LABORER infections or injury in the past Had a long discussion with pt and mom regarding ADD.The fact that his symptoms started only in the last yr and he is still doing well in school and not affecting his work and relationships,I don't think he fits in the diagnosis of ADD. Offered a referral for neuropsych testing but mom doesn't feel he needs one Will f/u if further concerns documented in this encounter Nursing Notes 01/06/2010 3:15 PM CST >> IAN Washburn Jan 06, 2010 3:15 PM Patient presents with: Consult - concerns about possible focusing issues Initial BP 116/60 Temp(Src) 98.7 ??F (37.1 ??C) (Oral) Ht 5' 5.25 (1.657 m) Wt 176 lb 8 oz (80.06 kg) Estimated Body mass index is 29.15 kg/(m^2) as calculated from the following: Height as of this encounter: 5' 5.25(1.657 m). Weight as of this encounter: 176 lb 8 oz(80.06 kg). BP completed using cuff size: regular. Ian Singh CMA (AACA) documented in this encounter Plan of Treatment Upcoming Encounters Date Type Specialty Care Team Description 11/04/2022 Office Visit Internal Medicine Marcy Ricketts APRN CNA INSTRUCTOR [address] [place], [place] [address] (Wo rk) documented as of this encounter Visit Diagnoses Diagnosis Academic problem - Primary Educational circumstance documented in this encounter Care Teams Blind Escort Relationship Specialty Start Date End Date Matthieu Olsen MD PCP - General 12/15/01 documented as of this encounter
--- OUTSIDE RECORDS SUMMARY | 2022-09-26 20:27 | XMS_ITS | Encounter Summary ---
:1995 Author Organization [place] Address [address] [facility] [place] [address] Care Team Providers Name Role Phone Matthieu Olsen MD Primary Care Provider Unavailable Encounter Details Date Type Department Care Team Description 11/12/2009 Medical Correspondence [facility] Larissa Olsen [facility] Meghan Hobson MD [address] [place] [address] Social History Tobacco Use Types [...] Office Visit Internal Medicine Marcy Ricketts APRN IAP DISPLAYS ANALYST [address] [place], [place] [address] (Wo rk) documented as of this encounter Visit Diagnoses Not on filedocumented in this encounter Care Teams Treer Relationship Specialty Start Date End Date Matthieu Olsen MD PCP - General 12/15/01 documented as of this encounter
--- OUTSIDE RECORDS SUMMARY | 2022-09-26 20:27 | XMS_ITS | Encounter Summary ---
:1995 Author Organization [place] Address [address] [facility] [place] [address] Care Team Providers Name Role Phone Matthieu Olsen MD Primary Care Provider Unavailable Encounter Details Date Type Department Care Team Description 07/23/2008 Medical Correspondence [facility] Larissa Olsen [facility] Meghan Hobson MD [address] [place] [address] Social History Tobacco Use Types [...] Internal Medicine Marcy Ricketts APRN DIRECTOR OF SOCIAL MEDIA MARKETING [address] [place], [place] [address] (Wo rk) documented as of this encounter Visit Diagnoses Not on filedocumented in this encounter Care Teams Dictating Transcribing Machine Servicer Relationship Specialty Start Date End Date Matthieu Olsen MD PCP - General 12/15/01 documented as of this encounter
--- OUTSIDE RECORDS SUMMARY | 2022-09-26 20:27 | XMS_ITS | Encounter Summary ---
:1995 Author Organization [place] Address [address] [facility] [place] [address] Care Team Providers Name Role Phone Matthieu Olsen MD Primary Care Provider Unavailable Encounter Details Date Type Department Care Team Description 03/05/2008 Results Only [facility] Mike Linares MD Hospital Results EMERGENCY [facility] [place] [address] [facility] [address] [place] [address] (Wo rk) Social History Tobacco Use Types [...] Office Visit Internal Medicine Marcy Ricketts APRN TEACHER PHYSICALLY IMPAIRED [address] [place], [place] [address] (Wo rk) documented as of this encounter Procedures Procedure Name Priority Date/Time Associated Diagnosis Comme nts CT SCAN Routine 03/05/2008 12:47 AM Results for this ABDOMEN/PELVIS CDT procedure are in the results section. documented in this encounter Results CT SCAN ABDOMEN/PELVIS (03/05/2008 12:47 AM CDT) Anatomical Region Laterality Modality Other Specimen (Source) Anatomical Collection Method Collection Time Re ceived Time Location / / Volume Laterality 03/05/2008 12:47 AM CDT Impressions 03/05/2008 1:08 AM CDT ABDOMEN AND PELVIS CT WITH CONTRAST: HISTORY: Abdominal pain with clinical co ncern for possible appendicitis. COMPARISON: None TECHNIQUE: 5.0 mm axial images performed from the lung bases to the ischial tuberosities utilizing 100 mL of Optiray 300 IV contrast without adverse event and gastrografin o ral contrast. Coronal reformatted images were also evaluated. FINDINGS: The liver, spleen, gallbladder, pancreas , adrenal glands and kidneys are normal. There is no hydronephrosis. There are no enlarged abdominal lymph nodes. There is no ascit es or free intraperitoneal air. The bowel is unremarkable. Pelvic o rgans are normal. There are no enlarged pelvic lymph nodes. The appendi x is identified and appear normal. IMPRESSION: Normal CT of the abdomen and pelvis with contrast. No CT findings to suggest appendicitis. Mike Linares MD SPECIAL IMAGING STUDIES documented in this encounter Visit Diagnoses Not on filedocumented in this encounter Care Teams Market Research Specialist Relationship Specialty Start Date End Date Matthieu Olsen MD PCP - General 12/15/01 documented as of this encounter
--- OUTSIDE RECORDS SUMMARY | 2022-09-26 20:27 | XMS_ITS | Encounter Summary ---
:1995 Author Organization [place] Address [facility] [place] [address] Care Team Providers Name Role Phone Matthieu Olsen MD Primary Care Provider Unavailable Reason for Visit Reason Comments Mass 2 painful lumps on R neck-no ticed yesterday Encounter Details Date Type Department Care Team Description 04/30/[address] [facility] Pili Rider Pain (Primary Dx); Clinic [place] MD Reactive Lymphadenitis [address] [place] [address] [phone] Social History Tobacco Use Types Packs/Day Years [...] Pressure - - Pulse - - Temperature 36.9 ??C (98.4 ??F) 04/30/2010 1:12 PM CDT Respiratory Rate - - Oxygen Saturation - - Inhaled Oxygen Concentration - - Weight 79.4 kg (175 lb) 04/30/2010 1:12 PM CDT Height 168.9 cm (5' 6.5) 04/30/2010 1:12 PM CDT Body Mass Index 27.82 04/30/2010 1:12 PM CDT Body Mass Index Percentile 96.78 % 04/30/2010 1:12 PM CD T Growth Chart: [facility] (Boys, 2-20 Years) documented in this encounter Progress Notes Pili Rider - 05/11/2010 8:32 AM CDT SUBJECTIVE: Seamus is a 15 year old male who presents with who presents with concerns about a sore throat and lumps in the neck on the right side. began within the last few days. Appetite and sleep are somewhat affected. There is no significant difficulty swallowing, significant abdominal or neck pain, and no true lethargy. There is no noted rash or facial edema. Known Strep exposure: none. Recent Illness: none OBJECTIVE: GENERAL: Alert, vigorous, is in no acute distress. SKIN: skin is well purfused, of normal turgor, no rash. Mucous membranes are moist. EYES: The eyes are normal.without conjunctivael injection or lid edema. EARS: The external auditory canals are clear and the tympanic membranes are normal; ames and translucent. NOSE: Clear, no discharge or congestion THROAT: The throat is erythematous with 2- tonsilar hypertrophy and no exudate. NECK: The neck is supple. LYMPH NODES: No or shoddy small jugulo-digastric adenopathy. Actually has bilateral enlarged lymph node about 1cm each. NO skin changes LUNGS: The lung burgos are clear to auscultation,no rales, rhonchi, wheezing or retractions HEART: The precordium is quiet. Rhythm is regular, no murmur. ABDOMEN: The bowel sounds are normal. Abdomen soft, non tender, non distended, no masses or hepatosplenomegaly. LAB: RSS negative ASSESSMENT: Pharyngitis Plan: Symptomatic treatment with rest fluids, vaporizer, and appropriate doses of analgesics. Recheck as needed for persistence greater than 1 week, worsening, appearance of new symptoms. Discussed cause and natural history of reactive lymphadenitis. This a a normal reaction to inflammation/infection. There does not appear to be infection within the nodes.I have given due consideration to the possibility of malignancy, but I feel that diagnosis is very unlikely based on a careful history and physical examination. Advise observation. Cautioned parent that the nodes will receed slowly and may wax and wane in response to minor illness or inflammation. RTC if node becomes hard, fixed, red, or rapidly enlarged or there are constitutional signs/symptoms. documented in this encounter Nursing Notes 04/30/2010 1:15 PM CDT >> FRANCISCO ALMEIDA [facility] Apr 30, 2010 1:13 PM Patient presents with: Mass - 2 painful lumps on R neck-noticed yesterday Initial Temp(Src) 98.4 ??F (36.9 ??C) (Oral) Ht 5' 6.5 (1.689 m) Wt 175 lb (79.379 kg) Estimated Body mass index is 27.82 kg/(m^2) as calculated from the following: Height as of this encounter: 5' 6.5(1.689 m). Weight as of this encounter: 175 lb(79.379 kg).. BP completed using cuff size: NA (Not Taken) documented in this encounter Plan of Treatment Upcoming Encounters Date Type Specialty Care Team Description 11/04/2022 Office Visit Internal Medicine Marcy Ricketts APRN SCRIPT GIRL [address] [place], [place] [address] (Wo rk) documented as of this encounter Procedures Procedure Name Priority Date/Time Associated Diagnosis Comme nts HCL STREP GROUP A Routine 04/30/2010 1:54 PM Throat Pain Resu lts for this ANTIGEN (RAPID) CDT procedure ar e in the results section. HCL BETA STREP Routine 04/30/2010 1:54 PM Throat Pain Results for this CONFIRM CDT procedure are i n the results section. documented in this encounter Results BETA STREP CONFIRM (04/30/2010 1:54 PM CDT) Component Value Ref Test Analysis Performed At [facility] Range Method Time Signature Specimen Throat [place] Description [facility] Culture Micro No Beta [place] Streptococcus RIDGES isolated CLINIC LAB Micro Report FINAL 05/02/2010 [facility] LAB Specimen Anatomical Collection Method Collection Time Receive d Time (Source) Location / / Volume Laterality 04/30/2010 1:54 PM 0 1:59 CDT PM CDT Pili Rider MD LABORATORY Performing Organization Address City/[facility]/ZIP Code Phon e Number [facility] [address] [place], [place] [address] [address] [facility] STREP GROUP A ANTIGEN (RAPID) (04/30/2010 1:54 PM CDT) Component Value Ref Test Analysis Performed At [facility] Range Method Time Signature Specimen Throat [place] Description [facility] Rapid Strep A NEGATIVE: No Group A strepto coccal antigen detected by immunoassay, await [place] Screen culture report. [facility] Micro Report FINAL 04/30/2010 [facility] LAB Specimen Anatomical Collection Method Collection Time Receive d Time (Source) Location / / Volume Laterality 04/30/2010 1:54 PM 0 1:59 CDT PM CDT Pili Rider MD LABORATORY Performing Organization Address City/[facility]/ZIP Code Phon e Number [facility] [address] [place], [place] [address] [address] [facility] documented in this encounter Visit Diagnoses Diagnosis Throat pain - Primary Reactive Lymphadenitis Acute lymphadenitis documented in this encounter Care Teams Senior Graphic Designer Relationship Specialty Start Date End Date Matthieu Olsen MD PCP - General 12/15/01 documented as of this encounter
--- OUTSIDE RECORDS SUMMARY | 2022-09-26 20:27 | XMS_ITS | Encounter Summary ---
:1995 Author Organization [place] Address [address] [place] [address] Care Team Providers Name Role Phone Matthieu Olsen MD Primary Care Provider Unavailable Reason for Referral Referral not Required - Closed Specialty Diagnoses / Procedures Referred By Contact Refer red To Contact Diagnoses Postconcussion syndrome Indra Kumar MD [facility] [address] [address] [address] [facility] [address] Phone: Fax: Referral ID Status Reason Start Date Expiration Date Visits Requ ested Visits Authorized [id number] Closed 01/30/2008 10/30/2011 1 1 Reason for Visit Reason Comments Dizziness Encounter Details Date Type Department Care Team Description 01/30/2008 Office Visit [facility] Indra Kumar, POST CONCUSSION SYNDROME Clinic Meghan MEDEIROS (Primary Dx) [address] [place] [address] Social History Tobacco Use [...] Sign Reading Time Taken Comments Blood Pressure 96/58 01/30/2008 7:00 PM CDT Pulse - - Temperature 36.8 ??C (98.2 ??F) 01/30/2008 7:00 PM CDT Respiratory Rate - - Oxygen Saturation - - Inhaled Oxygen Concentration - - Weight 64.4 kg (142 lb) 01/30/2008 7:00 PM CDT Height 155.6 cm (5' 1.25) 01/30/2008 7:00 PM CDT Body Mass Index 26.61 01/30/2008 7:00 PM CDT Body Mass Index Percentile 97.40 % 01/30/2008 7:00 PM CD T Growth Chart: [facility] (Boys, 2-20 Years) documented in this encounter Progress Notes Indra Kumar - 01/31/2008 6:33 PM CDT Seamus Barnes is a 13 year old male here with his mom due to persistent dizziness and occ VILLALBA orblurry vision. Pt with LOC and concussion in October. Mom not aware of sx ongoing for the past 2 months until recently. Has been playing hockey until season ended 2 weeks ago. ROS: +nausea, no emesis. +tinnitus rarely. No falls. Occasionally off balance. No fevers, no seizures or alt MS PMhx: no seizures or chronic VILLALBA, +concussion BP 96/58 Temp (Src) 98.2 (Oral) Ht 5' 1.25 (1.56m) Wt 142 lbs (64.4kg) General appearance: in no apparent distress. Eyes: ELISE, no discharge, no erythema ENT: R TM normal and good landmarks, L TM normal and good landmarks. Mouth: normal, mucous membranes moist Neck exam: no adenopathy. Lung exam: CTA, no wheezing, crackles or rtx. Heart exam: S1, S2 normal, no murmur, rub or gallop, regular rate and rhythm. Abdomen: soft, NT, BS - nl. No masses or hepatosplenomegaly. Ext:Normal. Skin: no rashes, well perfused Neuro: CN 2-12 normal. No dysmetria. 2+DTR. Normal gait, heel toe. Normal MS A/P Post concussive syndrome Referral to neurology Cessation of athletics until sx gone at least 1 week or cleared by neuro Trial of matthew for nausea, dizziness Discussed SE of motion sickness meds and would avoid for now RTC if worsening sx or any other concerns >50% of 30 min visit spent on education and counseling documented in this encounter Nursing Notes 01/30/2008 7:00 PM CDT >> REMA HARE 01/30/2008 7:16 pm Seamus Barnes presents for c/o dizzyness, almost every day, since head injury in Oct. (seen in ER) . Initial BP 96/58 Temp (Src) 98.2 (Oral) Ht 5' 1.25 (1.56m) Wt 142 lbs (64.4kg) Body mass index is 26.60 kg/(m^2).. BP completed using cuff size: NA (Not Taken) documented in this encounter Plan of Treatment Upcoming Encounters Date Type Specialty Care Team Description 11/04/2022 Office Visit Internal Medicine Marcy Ricketts APRN SALES DEVELOPER [address] [place], [place] [address] (Wo rk) documented as of this encounter Visit Diagnoses Diagnosis Postconcussion syndrome - Primary documented in this encounter Care Teams Post Graduate Intern Relationship Specialty Start Date End Date Matthieu Olsen MD PCP - General 12/15/01 documented as of this encounter
--- OUTSIDE RECORDS SUMMARY | 2022-09-26 20:27 | XMS_ITS | Encounter Summary ---
:1995 Author Organization [place] Address [address] [facility] [place] [address] Care Team Providers Name Role Phone Matthieu Olsen MD Primary Care Provider Unavailable Encounter Details Date Type Department Care Team Description 03/04/2008 Results Only [facility] Mike Linares MD Hospital Results EMERGENCY [facility] [address] [facility] [address] [place] [address] (Wo rk) Social History Tobacco Use Types [...] Visit Internal Medicine Marcy Ricketts APRN ASSISTANT GUEST SERVICES MANAGER [address] [place], [place] [address] (Wo rk) documented as of this encounter Procedures Procedure Name Priority Date/Time Associated Diagnosis Comme nts HC US SCROTUM AND Routine 03/04/2008 10:19 PM Res ults for this CONTENTS CDT procedure are i n the results section. documented in this encounter Results SONO SCROTUM (03/04/2008 10:19 PM CDT) Anatomical Region Laterality Modality Other Specimen (Source) Anatomical Collection Method Collection Time Re ceived Time Location / / Volume Laterality 03/04/2008 10:19 PM CDT Impressions 03/04/2008 10:31 PM CDT US TESTICULAR ?? March 04, 2008 10:19:00 PM HISTORY: ??Right testicular pain. Evalua te for torsion. FINDINGS: The testicles bilaterally are homogeneous in echotexture without focal mass. ??The right testicle measures 1.7 x 1.0 x 1.3 cm. The left testicle measures 1.8 x 1.2 x 1 .3 cm. There are normal ??color Doppler waveforms within the testicles. Color Doppler flow is symmetric. ??The left epididymis is norm al. The right epididymis is normal. No varicoceles or hydroceles are evident. IMPRESSION: ??Normal testicles without t orsion. Mike Linares MD SPECIAL IMAGING STUDIES documented in this encounter Visit Diagnoses Not on filedocumented in this encounter Care Teams Storage Battery Charger Relationship Specialty Start Date End Date Matthieu Olsen MD PCP - General 12/15/01 documented as of this encounter
--- OUTSIDE RECORDS SUMMARY | 2022-09-26 20:27 | XMS_ITS | Encounter Summary ---
:1995 Author Organization [place] Address [address] [facility] [place] [address] Care Team Providers Name Role Phone Matthieu Olsen MD Primary Care Provider Unavailable Reason for Visit Reason Comments RECHECK follow up, medication recomm ended by psych Encounter Details Date Type Department Care Team Description 11/02/2010 Office Visit [facility] Matthieu Olsen Anxiety attack Clinic Meghan Hobson MD (Primary Dx) [address] [place] [address] Social History Tobacco Use Types [...] Sign Reading Time Taken Comments Blood Pressure 118/76 11/02/2010 2:49 PM PYTHON ENGINEER Pulse - - Temperature 36.8 ??C (98.3 ??F) 11/02/2010 2:49 PM PYTHON ENGINEER Respiratory Rate - - Oxygen Saturation - - Inhaled Oxygen Concentration - - Weight 82.6 kg (182 lb) 11/02/2010 2:49 PM PYTHON ENGINEER Height 173.4 cm (5' 8.25) 11/02/2010 2:49 PM PYTHON ENGINEER Body Mass Index 27.47 11/02/2010 2:49 PM PYTHON ENGINEER Body Mass Index Percentile 96.05 % 11/02/2010 2:49 PM CS T Growth Chart: [facility] (Boys, 2-20 Years) documented in this encounter Progress Notes Matthieu Olsen - 11/03/2010 9:39 AM CST Psychologist:Jun Santana [phone] Seamus has been seeing psychologist for panic attacks and possible depression Was seen IN the ER at [facility] and was recommended in pt but parents refused as mom could not stay with him Since then has been seeing psychologist with some help but recommneded to be on anti-anxiety meds which initially mom was totally opposed but now agrees. Spent 15 minutes face to face counseling regarding need for medication,how it is going to help him ,possible side effects and the importance of continuing psychotherapy Started on zoloft and advise see his counsellor every week and f/u with me in 6- 8 weeks ON ENGINEER documented in this encounter Nursing Notes 11/02/2010 2:45 PM CST >> IAN MICHEL Mon Nov 02, 2010 2:51 PM Patient presents with: RECHECK - follow up, medication recommended by psych Initial BP 118/76 Temp(Src) 98.3 ??F (36.8 ??C) (Oral) Ht 5' 8.25 (1.734 m) Wt 182 lb (82.555kg) Estimated Body mass index is 27.47 kg/(m^2) as calculated from the following: Height as of this encounter: 5' 8.25(1.734 m). Weight as of this encounter: 182 lb(82.555 kg). BP completed using cuff size: regular. Ian Michel CMA (AAIN) documented in this encounter Plan of Treatment Upcoming Encounters Date Type Specialty Care Team Description 11/04/2022 Office Visit Internal Medicine Marcy Ricketts APRN STEEL RULE DIE MAKER [address] [place], [place] [address] (Wo rk) documented as of this encounter Visit Diagnoses Diagnosis Anxiety attack - Primary Panic disorder without agoraphobia documented in this encounter Care Teams Sanitation Truck Cleaner Relationship Specialty Start Date End Date aMtthieu Olsen MD PCP - General 12/15/01 documented as of this encounter
--- OUTSIDE RECORDS SUMMARY | 2022-09-26 20:27 | XMS_ITS | Encounter Summary ---
:1996 Author Organization [place] Address [facility] [place] [address] Care Team Providers Name Role Phone Matthieu Olsen MD Primary Care Provider Unavailable Reason for Referral Specialty Diagnoses / Procedures Referred By Contact Refer red To Contact [address] [place] [address] Referral ID Status Reason Start Date Expiration Date Visits Requ ested Visits Authorized Encounter Details Date Type Department Care Team Description 05/01/2010 Orders Only [facility] Matthieu Olsen TING RESULTS Clinic Meghan Hobson MD (Primary Dx) [address] [place] [phone] Social History Tobacco Use Types Packs/Day [...] Office Visit Internal Medicine Marcy Ricketts APRN RESPIRATORY SCIENTIST [address] [place], [place] [address] (Wo rk) documented as of this encounter Procedures Procedure Name Priority Date/Time Associated Diagnosis Comme nts ZZ CONSULT MENTAL HEALTH Routine 09/13/2010 ABSTRACTING R ESULTS documented in this encounter Results CONSULT MENTAL HEALTH (09/13/2010) Narrative This result has an attachment that is no t available. Matthieu Olsen MD REFERRAL documented in this encounter Visit Diagnoses Diagnosis ABSTRACTING RESULTS - Primary documented in this encounter Care Teams Broadcast Checker Relationship Specialty Start Date End Date Matthieu Olsen MD PCP - General 12/15/01 documented as of this encounter
--- OUTSIDE RECORDS SUMMARY | 2022-09-26 20:27 | XMS_ITS | Encounter Summary ---
:1995 Author Organization [place] Address [facility] [place] [address] Care Team Providers Name Role Phone Matthieu Olsen MD Primary Care Provider Unavailable Reason for Visit Reason Onset Date Comments Medication Problem 12/14/2010 Encounter Details Date Type Department Care Team Description 12/14/2010 Refill [facility] Matthieu Olsen, Medication Problem Meghan MEDEIROS [address] [place] [address] Social History Tobacco Use [...] this encounter Miscellaneous Notes Telephone Encounter - AdryCliffordPili Ewelina - 12/14/2010 9:40 PM CST Hides anxiety from mother. Won't go to friend's houses worried he will have anxiety. Goes to school doing OK, in hockey. Has counsellor appointment in about 10 days. Advise increase to 75 mg of Zoloft and then to 100 if poor results on 75 after 14 days. See PCP in 3-4 weeks May need fill prior to visit. EN SEWER Telephone Encounter - Raven Nelson - 12/14/2010 3:26 PM CST Mom explains pt was seen in October (1.3.11 by PMD) & started Zoloft 25 mg. One tablet daily. PMD told them if that did not work effectively, to increase to 2 tablets daily. They increased to 2 tabs daily about 3 weeks ago. They have not noted any change in symptoms. Mom is looking for guidance, please advise. Raven Nelson R.N. EN SEWER documented in this encounter Plan of Treatment Upcoming Encounters Date Type Specialty Care Team Description 11/04/2022 Office Visit Internal Medicine Marcy Ricketts APRN SECURITY ESCORT [address] [place], [place] [address] (Wo rk) documented as of this encounter Visit Diagnoses Not on filedocumented in this encounter Care Teams Inpatient Care Manager Rn Relationship Specialty Start Date End Date Matthieu Olsen MD PCP - General 12/15/01 documented as of this encounter
--- OUTSIDE RECORDS SUMMARY | 2022-09-26 20:27 | XMS_ITS | Encounter Summary ---
:1995 Author Organization [place] Address [facility] [place] [address] Care Team Providers Name Role Phone Matthieu Olsen MD Primary Care Provider Unavailable Reason for Visit Reason Comments Fever fever with cough, headache a nd runny nose x 1 day Encounter Details Date Type Department Care Team Description 12/19/2006 Office Visit [facility] Matthieu Olsen FEVER; Clinic Meghan Hobson MD COUGH; [address] FLU W RESP OSMANY FEST Influenza A; [place] PNEUMONIA, [place] [address] Social History Tobacco Use Types [...] Pressure - - Pulse - - Temperature 37.9 ??C (100.2 ??F) 12/19/2006 11:15 AM SWEAT BAND SEPARATOR Respiratory Rate - - Oxygen Saturation - - Inhaled Oxygen Concentration - - Weight 60.6 kg (133 lb 8 oz) 12/19/2006 11:15 AM SWEAT BAND SEPARATOR Height 153 cm (5' 0.25) 12/19/2006 11:15 AM SWEAT BAND SEPARATOR Body Mass Index 25.86 12/19/2006 11:15 AM SWEAT BAND SEPARATOR Body Mass Index Percentile 97.72 % 12/19/2006 11:[address] Growth Chart: [facility] (Boys, 2-20 Years) documented in this encounter Progress Notes Matthieu Olsen - 12/26/2006 10:25 PM CST Seamus is here today for cold symptoms of 1 day days duration. Main symptom(s) runny nose, congestion and cough. Fever present, up to 102 degrees for 1 day. Associated symptoms include bodyache, fatigue and headache. Pertinent negatives include shortness of breath, wheezing, or lethargy. Physical Exam: 11 year old well developed, well nourished male in no apparent distress. Ears normal. Throat and pharynx normal. Neck supple. No adenopathy or masses in the neck or supraclavicular regions. Sinuses non tender.. Nasal drainage clear. Lungs clear to auscultation. Heart regular rate and rhythm without murmurs. No tachycardia. The abdomen is soft without tenderness, guarding, mass or organomegaly. Bowel sounds are normal. No CVA tenderness or inguinal adenopathy noted.. Influenza A positive CXR:Possible infilterate Assessment: Influenza with pneumonia Plan: Prescription(s) given today as per orders. Follow-up in clinic in 1 month. OTC medications for respiratory symptom control. Examples and dosages reviewed. Follow up if symptomduration greater than two weeks or worsening symptoms. Otherwise per orders. T BAND SEPARATOR documented in this encounter Nursing Notes 12/19/2006 11:15 AM CST >> ABELARDO GHOSH 12/19/2006 1:39 pm Notified mom medication is at the service desk technician and the rx was faxed to pharmacy and to come in for followup in 2 weeks >> SCOTTY STARK 12/19/2006 11:26 am Patient presents with: Fever - fever with cough, headache and runny nose x 1 day initial Temp (Src) 100.2 (Oral) Ht 5' .25 (1.53m) Wt 133 lbs 8.0 oz (60.6kg) Body mass index is25.87 kg/(m^2).. bp completed using cuff size NA (Not Taken) Scotty Stark MA documented in this encounter Plan of Treatment Upcoming Encounters Date Type Specialty Care Team Description 11/04/2022 Office Visit Internal Medicine Marcy Ricketts, [facility] [address] [place], [place] [address] (Wo rk) documented as of this encounter Procedures Procedure Name Priority Date/Time Associated Diagnosis Comme nts INFLUENZA A/B Routine 12/19/2006 12:09 Fever Results for this ANTIGEN PM SWEAT BAND SEPARATOR Cough procedure are i n the results section. HC CHEST TWO VIEWS, Routine 12/19/2006 11:55 Fever and other R esults for this FRONT/LAT AM SWEAT BAND SEPARATOR physiologic procedure are i n disturbances of the results temperature section. regulation Cough documented in this encounter Results (ABNORMAL) INFLUENZA A/B ANTIGEN (12/19/2006 12:09 PM SWEAT BAND SEPARATOR) [facility] gist Method Time Signature Influenza A/B Nasopharyngeal [place] Agn Specimen [facility] Influenza A Positive (A) NEG [facility] Influenza B Negative NEG [facility] Specimen Anatomical Collection Method Collection Time Receive d Time (Source) Location / / Volume Laterality 12/19/2006 12:09 12/19/2006 PM SWEAT BAND SEPARATOR 12:14 PM SWEAT BAND SEPARATOR Matthieu Olsen MD LABORATORY Performing Organization Address City/State/ZIP Code Phon e Number [facility] [address] [place], [place] [address] [address] [facility] CHEST X-RAY 2 VW (12/19/2006 11:55 AM SWEAT BAND SEPARATOR) Anatomical Region Laterality Modality Other Specimen (Source) Anatomical Collection Method Collection Time Re ceived Time Location / / Volume Laterality 12/19/2006 11:55 AM SWEAT BAND SEPARATOR Impressions 12/19/2006 1:20 PM SWEAT BAND SEPARATOR EXAM: ??CHEST 2 VIEW* HISTORY: ?cough,Fever IMPRESSION: There is a spiculated nodula r density projecting over the anterior right 5th rib. In a patient of this age, this could represent overlying densities or small focus of in filtrate. Recommend followup chest radiograph. Results discussed with Dr. Olsen. Matthieu Olsen MD GENERAL IMAGING documented in this encounter Visit Diagnoses Diagnosis Fever and other physiologic disturbances of temperature regulation Cough FLU W RESP MANIFEST Influenza A Influenza with other respiratory manifes tations Pneumonia, organism unspecified(486) Pneumonia, organism unspecified documented in this encounter Care Teams Laundry Marker Supervisor Relationship Specialty Start Date End Date Matthieu Olsen MD PCP - General 12/15/01 documented as of this encounter
--- OUTSIDE RECORDS SUMMARY | 2022-09-26 20:27 | XMS_ITS | Encounter Summary ---
:1995 Author Organization [place] Address [address] [place] [address] Care Team Providers Name Role Phone Matthieu Olsen MD Primary Care Provider Unavailable Reason for Visit Reason Comments Sports Physical Football Encounter Details Date Type Department Care Team Description 05/26/2010 Office Visit [facility] Chato Haque Rou tine Infant or Clinic Meghan MEDEIROS Child Health Check [address] (Primary Dx) [place] [address] [place] [phone] (Wo rk) Social History [...] Sign Reading Time Taken Comments Blood Pressure 108/66 05/26/2010 2:17 PM CDT Pulse - - Temperature 36.9 ??C (98.4 ??F) 05/26/2010 2:17 PM CDT Respiratory Rate - - Oxygen Saturation - - Inhaled Oxygen Concentration - - Weight 78.5 kg (173 lb) 05/26/2010 2:17 PM CDT Height 168.9 cm (5' 6.5) 05/26/2010 2:17 PM CDT Body Mass Index 27.5 05/26/2010 2:17 PM CDT Body Mass Index Percentile 96.43 % 05/26/2010 2:17 PM CD T Growth Chart: [facility] (Boys, 2-20 Years) documented in this encounter Progress Notes Chato Haque - 05/26/2010 2:32 PM CDT One concussion hockey. Dizzy and light headed. Sx lasted couple hours. Had scan. wewight doing much better. Quit having pop. Lot of sports - conditioning. Tonsils large. ?sleep apnea symptoms. Seamus is an 15 year old male here for a routine health maintenance visit. There are concerns as listed above. No current emotional, behavioral, or schoolastic concerns. DAILY ACTIVITIES: No current concerns about school, friendships, or functioning in family unit. Diet includes a good variety of foods. Favorite activities include sports. ROS: Other than as above, review of systems negative for constitutional, HEENT, respiratory, cardiovascular, gastrointestinal, genitourinary, endocrine, neurological, skin, and hematologic issues, includingsports review. PAST MEDICAL HISTORY: History reviewed. No pertinent past medical history. No past surgical history on file. FAMILY / SOCIAL HISTORY: No current family stresses or environmental risk factors identified. PHYSICAL EXAMINATION: BP 108/66 Temp(Src) 98.4 ??F (36.9 ??C) (Oral) Ht 5' 6.5 (1.689 m) Wt 173 lb (78.472 kg) Exam: GENERAL: Alert, vigorous, is in no acute distress. SKIN: Skin is clear of rashes HEAD: The head is normocephalic. EYES: The conjunctivae and cornea normal. Corneal light reflex symmetric. PERRLA. No abnormalities noted on fundoscopic exam. EARS: The external auditory canals are clear and the tympanic membranes are normal. NOSE: Clear of drainage. Turbinates normal size and color. THROAT: with tonsilar hypertrophy 3/4. MOUTH: Normal mouth. No obvious dental caries. NECK: The neck is supple and thyroid is nonpalpable. LYMPH NODES: There are no palpably enlarged lymph nodes. LUNGS: The lung burgos are clear to auscultation. HEART: The precordium is quiet. Regular rate and rhythm without murmur. S1 and S2 are normal. The femoral pulses are normal. ABDOMEN: Abdomen is soft. No masses. No hepatosplenomegally. The bowel sounds are normal. GENITALIA: Testes down bilaterally. Quinn 4. No inguinal herniae are present. EXTREMITIES: FROM all joints. NEUROLOGIC: Normal tone throughout. Has normal reflexes for age. ANTICIPATORY GUIDANCE: Parenting issues including encouraging reasonable autonomy. Healthy diet and physical activity habits. Regular dental care reviewed. Safety discussed including accidental trauma risks and peer group factors. IMMUNIZATIONS: Immunizations reviewed. No previous reactions. No shots discussed and given today. ASSESSMENT: 15 year old Well Child Visit with normal growth and development. No problems identified today PLAN: No prescriptions or referrals given. Reviewed to monitor for snoring/sleep apnea symptoms and call if occuring. RTC 1-2 years for health care maintenance visit. documented in this encounter Nursing Notes 05/26/2010 2:15 PM CDT >> CHARO Washburn May 26, 2010 2:20 PM Patient presents with: Sports Physical - Football Initial BP 108/66 Temp(Src) 98.4 ??F (36.9 ??C) (Oral) Ht 5' 6.5 (1.689 m) Wt 173 lb (78.472 kg) Estimated Body mass index is 27.50 kg/(m^2) as calculated from the following: Height as of this encounter: 5' 6.5(1.689 m). Weight as of this encounter: 173 lb(78.472 kg).. BP completed using cuff size: regular Charo Godoy CMA Seamus is here for a physical today. There are no concerns No changes in family history since last physical. No recent social changes/stressors. Hearing: No concerns. Vision: No concerns. Charo Godoy CMA documented in this encounter Plan of Treatment Upcoming Encounters Date Type Specialty Care Team Description 11/04/2022 Office Visit Internal Medicine Marcy Ricketts APRN BLUE PRINTS TRIMMER [address] [place], [place] [address] (Wo rk) documented as of this encounter Visit Diagnoses Diagnosis Routine infant or child health check - P rimary documented in this encounter Care Teams Tag Machine Operator Relationship Specialty Start Date End Date Matthieu Olsen MD PCP - General 12/15/01 documented as of this encounter
--- OUTSIDE RECORDS SUMMARY | 2022-09-26 20:27 | XMS_ITS | Encounter Summary ---
:1995 Author Organization [place] Address [facility] [place] [address] Care Team Providers Name Role Phone Matthieu Olsen MD Primary Care Provider Unavailable Reason for Visit Reason Comments Pharyngitis ST, also intermittent HAs-la st tylenol dose 1235 pm Encounter Details Date Type Department Care Team Description 02/19/2008 Office Visit [facility] Indra Kumar ACKARLENE E PHARYNGITIS Clinic Meghan MEDERIOS (Primary Dx) [address] [place] [address] [phone] Social History Tobacco Use Types Packs/Day Years [...] - - Temperature 36.5 ??C (97.7 ??F) 02/19/2008 2:45 PM CDT Respiratory Rate - - Oxygen Saturation - - Inhaled Oxygen Concentration - - Weight 64.9 kg (143 lb) 02/19/2008 2:45 PM CDT Height 154.9 cm (5' 1) 02/19/2008 2:45 PM CDT Body Mass Index 27.02 02/19/2008 2:45 PM CDT Body Mass Index Percentile 97.62 % 02/19/2008 2:45 PM CD T Growth Chart: [facility] (Boys, 2-20 Years) documented in this encounter Progress Notes Indra Kumar - 02/19/2008 3:07 PM CDT SUBJECTIVE: Seamus Barnes is a 13 year old male with sore throat, and headache for 1 day. Medications used- tylenol Other symptoms: no. OBJECTIVE: Patient is not ill, not toxic. Neck is supple with moderate anterior adenopathy, but no posterior nodes. Ears normal. Throat: tonsils are enlarged, not red, with no exudate. Chest is clear. Abdomen non-tender, liver and spleen not enlarged. There are no rashes. Rapid Strep test is negative. ASSESSMENT: Non Streptococcal Pharyngitis PLAN: Per orders. Gargle, use acetaminophen or other OTC analgesic, and take Rx fully as prescribed.Call if other family members develop similar symptoms. See prn. documented in this encounter Nursing Notes 02/19/2008 2:45 PM CDT >> FRANCISCO ALMEIDA 02/19/2008 2:53 pm Seamus Barnes presents for ST, intermittent HAs. Initial Temp (Src) 97.7 (Oral) Ht 5' 1 (1.55m) Wt 143 lbs (64.9kg) Body mass index is 27.03 kg/(m^2).. BP completed using cuff size: NA (Not Taken) documented in this encounter Plan of Treatment Upcoming Encounters Date Type Specialty Care Team Description 11/04/2022 Office Visit Internal Medicine Marcy Ricketts APRN FACTORY REPRESENTATIVE [address] [place], [place] [address] (Wo rk) documented as of this encounter Procedures Procedure Name Priority Date/Time Associated Diagnosis Comme nts HCL BETA STREP Routine 02/19/2008 3:08 PM Acute Pharyngitis Re sults for this CONFIRM CDT procedure are i n the results section. HCL STREP GROUP A Routine 02/19/2008 3:08 PM Acute Pharyngitis Results for this AG (RAPID) CDT procedure are i n the results section. documented in this encounter Results BETA STREP CONFIRM (02/19/2008 3:08 PM CDT) Component Value Ref Test Analysis Performed At [facility] gist Range Method Time Signature Specimen Throat [facility] Culture Micro No Beta [place] Streptococcus [facility]IC LAB Report status FINAL 02/21/2008 [facility] Specimen Anatomical Collection Method Collection Time Receive d Time (Source) Location / / Volume Laterality 02/19/2008 3:08 PM 8 3:13 CDT PM CDT Indra Kumar MD LABORATORY Performing Organization Address City/[facility] Phon e Number [facility] [address] [place], [place] [address] [address] [facility] STREP GROUP A AG (RAPID) (02/19/2008 3:08 PM CDT) Component Value Ref Test Analysis Performed At [facility] [employer] Range Method Time Signature Specimen Throat [facility] Rapid Strep A NEGATIVE: No Group A strepto coccal antigen detected by immunoassay, await [place] Screen culture report. [facility] Report status FINAL 02/19/2008 [facility] Specimen Anatomical Collection Method Collection Time Receive d Time (Source) Location / / Volume Laterality 02/19/2008 3:08 PM 8 3:13 CDT PM CDT Indra Kumar MD LABORATORY Performing Organization Address City/[facility] Phon e Number [facility] [address] [place], [place] [address] [address] [facility] documented in this encounter Visit Diagnoses Diagnosis Acute pharyngitis - Primary documented in this encounter Care Teams Oil Burner Repairer Relationship Specialty Start Date End Date Matthieu Olsen MD PCP - General 12/15/01 documented as of this encounter
--- OUTSIDE RECORDS SUMMARY | 2022-09-26 20:27 | XMS_ITS | Encounter Summary ---
:1995 Author Organization [place] Address [address] [facility] [place] [address] Care Team Providers Name Role Phone Matthieu Olsen MD Primary Care Provider Unavailable Reason for Visit Reason Comments Consult dizziness, numbness, tinglin g throughout body-episodes of crying, minimal enjoyment, not social-starte d -worse over the weekend Encounter Details Date Type Department Care Team Description 06/16/2010 Office Visit [facility] Indra Kumar, Anxi david (Primary Dx) Clinic Meghan MEDEIROS [address] [place] [place] [address] [phone] Social History Tobacco Use Types Packs/Day Years [...] Sign Reading Time Taken Comments Blood Pressure 118/74 06/16/2010 3:37 PM CDT Pulse 76 06/16/2010 3:37 PM CDT Temperature - - Respiratory Rate - - Oxygen Saturation - - Inhaled Oxygen Concentration - - Weight 77.6 kg (171 lb) 06/16/2010 3:37 PM CDT Height - - Body Mass Index - - documented in this encounter Progress Notes StacyIndra - 06/21/2010 9:54 AM CDT Seamus Barnes is a 15 year old male here with mom. Acute onset over past 4- 5 days of anxiety, tingling, VILLALBA, dizziness. Was at cabin with family during that time. No new stressors and problems occurred then. However, pt does admit to trying smoking pot 2 weeks before after giving into peer pressure from former best friend. Had exact same sx then. Told mom about it. No other drug use. Not feeling depressed. Started football practice. Feels ok when busy and occupied. More anxious around that kid who is on team and same school as well. Feels guilty and says I won't ever do anything dumb like thatagain. Due to parental separation has counselor who he sees regularly and is open with but she is on vacation. No previous issues FHX: dad alcoholic Mom with anxiety in past BP 118/74 Pulse 76 Wt 171 lb (77.565 kg) General appearance: in no apparent distress. Eyes: ELISE, no discharge, no erythema ENT: R TM normal and good landmarks, L TM normal and good landmarks. Nose: no nasal discharge or congestion, Mouth: normal, mucous membranes moist Neck exam: normal, supple and no adenopathy. Lung exam: CTA, no wheezing, crackles or rtx. Heart exam: S1, S2 normal, no murmur, rub or gallop, regular rate and rhythm. Abdomen: soft, NT, BS - nl. No masses or hepatosplenomegaly. Ext:Normal. Skin: no rashes, well perfused Neuro: CN 2-12 intact, neg romberg, normal heel toe walk, 2+DTR Psych: clear speech, very articulate but describes sx as reading from textbook then his feeling of sx A/P Anxiety: likely guilt derived from smoking marijuana given exact same sx Discussed with parent and pt regarding forgiving himself for mistake in judgment and move forward Discussed pt risk of addiction given father and anxiety of mother Cont ongoing therapy with counselor No other medical eval necessary Do not recommend medication at this time. >50% of 30 min visit spent on education and counseling documented in this encounter Nursing Notes 06/16/2010 3:30 PM CDT >> FRANCISCO Washburn Jun 16, 2010 3:38 PM Patient presents with: Consult - dizziness, nubmess, tingling throughout body-episodes of crying, minimal enjoyment, not social-started -worse over the weekend Initial BP 118/74 Pulse 76 Wt 171 lb (77.565 kg) Estimated Body mass index is 27.19 kg/(m^2) as calculated from the following: Height as of 10: 5' 6.5(1.689 m). Weight as of this encounter: 171 lb(77.565 kg).. BP completed using cuff size: regular documented in this encounter Plan of Treatment Upcoming Encounters Date Type Specialty Care Team Description 11/04/2022 Office Visit Internal Medicine Marcy Ricketts APRN TECHNOLOGY SOLUTIONS ARCHITECT [address] [place], [place] [address] (Wo rk) documented as of this encounter Visit Diagnoses Diagnosis Anxiety - Primary Anxiety state, unspecified documented in this encounter Care Teams Distribution Clerk Relationship Specialty Start Date End Date Matthieu Olsen MD PCP - General 12/15/01 documented as of this encounter
--- OUTSIDE RECORDS SUMMARY | 2022-09-26 20:27 | XMS_ITS | Encounter Summary ---
:1995 Author Organization [place] Address [facility] [facility] [place] [address] Care Team Providers Name Role Phone Matthieu Olsen MD Primary Care Provider Unavailable Encounter Details Date Type Department Care Team Description 03/04/2008 Historic Results INTERFACED REPORT Mike Linares MD [facility] [address] [place] [address] (Wo rk) Social History Tobacco Use Types [...] Visit Internal Medicine Marcy Ricketts APRN INSTRUCTOR [employer] [address] [place], [place] [address] (Wo rk) documented as of this encounter Procedures Procedure Name Priority Date/Time Associated Comments Diagnosis HEMOGRAM DIFFERENTIAL STAT 03/04/2008 11:20 Re sults for this AND PLATELET PM CDT procedure are i n the results section. ROUTINE UA WITH STAT 03/04/2008 10:45 Results for this MICROSCOPIC PM CDT procedure are i n the results section. documented in this encounter Results (ABNORMAL) Hemogram differential and platelet (03/04/2008 11:20 PM CDT) [facility] [employer] Method Time Signature MCV 87 77 - 100 [facility] fl MCH 30.2 26.5 - MISYS 33.0 pg MCHC 34.9 31.5 - M[facility] 36.5 g/dL RDW 13.0 10.0 - M[facility] 15.0 % WBC 6.9 4.0 - MIS[facility] 11.0 10e9/L RBC Count 4.54 3.7 - 5.3 M[facility] 10e12/L Hemoglobin 13.7 11.7 - MIS[facility] 15.7 g/dL Hematocrit 39.3 35.0 - MISYS 47.0 % % Neutrophils 34 32 - 64 % MISYS % Lymphocytes 63 (H) 26 - 50 % MISYS % Monocytes 2 0 - 12 % MIS[facility] % Eosinophils 1 0 - 6 % MIS[facility] % Basophils 0 0 - 2 % [facility] Platelet Count 220 150 - 450 [facility] 10e9/L Absolute 2.3 1.3 - 7.0 [facility] Neutrophil 10e9/L Absolute 4.3 1.0 - 5.8 [facility] Lymphocytes 10e9/L Absolute 0.1 0.0 - 1.3 [facility] Monocytes 10e9/L Absolute 0.1 0.0 - 0.7 [facility] Eosinophils 10e9/L Absolute 0.0 0.0 - 0.2 [facility] Basophils 10e9/L Platelet Normal [facility] Estimate Diff Method Manual Method M[facility] RBC Morphology Consistent [facility] with reported results Specimen Anatomical Collection Method Collection Time Receive d Time (Source) Location / / Volume Laterality 03/04/2008 11:20 03/04/2008 PM CDT 10:55 PM CDT Mike Linares MD LAB - BLOOD ORDERABLES Performing Organization Address City/State/ZIP Code Phon e Number [facility] (ABNORMAL) Routine UA with microscopic (03/04/2008 10:45 PM CDT) Component Value Ref Test Analysis Performed At [facility] [employer] Range Method Time Signature Source Unspecified [facility] Urine Color Urine Yellow [facility] Appearance Urine Cloudy [facility] Glucose Urine Negative NEG [facility] mg/dL Bilirubin Urine Negative NEG [facility] Ketones Urine Negative NEG [facility] mg/dL Specific [place] 1.025 1.003 - [facility] Urine 1.035 Blood Urine Negative NEG [facility] pH Urine 7.0 5.0 - [facility] 7.0 pH Protein Albumin 10 (A) NEG [facility] Urine mg/dL Urobilinogen Normal 0.0 - [facility] mg/dL 2.0 mg/dL Nitrite Urine Negative NEG [facility] Leukocyte Negative NEG [facility] Esterase Urine WBC Urine 0 0 - 2 [facility] /HPF RBC Urine 0 0 - 2 [facility] /HPF Amorphous Many (A) NEG /HPF [facility] Crystals Specimen Anatomical Collection Method Collection Time Receive d Time (Source) Location / / Volume Laterality 03/04/2008 10:45 03/04/2008 PM CDT 10:35 PM CDT Mike Linares MD LAB - URINE ORDERABLES Performing Organization Address City/State/ZIP Code Phon e Number M[facility] documented in this encounter Visit Diagnoses Not on filedocumented in this encounter Care Teams Supplier Development Manager Relationship Specialty Start Date End Date Matthieu Olsen MD PCP - General 12/15/01 documented as of this encounter
--- OUTSIDE RECORDS SUMMARY | 2022-09-26 20:27 | XMS_ITS | Encounter Summary ---
:1995 Author Organization [place] Address [address] [place] [address] Care Team Providers Name Role Phone Matthieu Olsen MD Primary Care Provider Unavailable Reason for Visit Reason Comments Ear Problem Encounter Details Date Type Department Care Team Description 08/09/2007 Office Visit [facility] Matthieu Olsen OM CARLTON HOUNG WITH ABX IN LAST 60 DAYS (Primary Dx); Clinic Meghan Hobson MD ABNORMAL WEIGHT GAIN [address] [place] [address] Social History Tobacco Use Types [...] Pressure - - Pulse - - Temperature 36.7 ??C (98 ??F) 08/09/2007 9:45 AM CDT Respiratory Rate - - Oxygen Saturation - - Inhaled Oxygen Concentration - - Weight 66.5 kg (146 lb 8 oz) 08/09/2007 9:45 AM CDT Height - - Body Mass Index - - documented in this encounter Progress Notes Matthieu Olsen - 08/09/2007 11:20 AM CDT SUBJECTIVE: Seamus Barnes is a 12 year old male who presents with a 1 days history of problems with his left EAR(s). Discomfort is present which kept him up at night. Drainage has not been present. Associated symptoms: Fever: no fever Rhinorrhea: present: Other symptoms: NO Recent illnesses: strep throat - Dx 4 days ago on the last day of z-max Sick contacts: none known ROS: OBJECTIVE: Temp (Src) 98 (Oral) Wt 146 lbs 8.0 oz (66.5kg) Exam: General: Well nourished, well developed without apparent distress Skin: Negative Eye: corneas clear and conjunctivae and sclerae normal HENT: Nose congestedPOSITIVE for ,mouth without ulcers or lesions, TM erythematous/bulging right, oral mucous membranes moist and oropharynx clear; Chest/Lungs: clear CV: Negative { ASSESSMENT: Acute Otitis Media complicated by bullous myringitis PLAN: Antibiotics See orders: lab, imaging, med and follow-up plans for this encounter. documented in this encounter Nursing Notes 08/09/2007 9:45 AM CDT >> RAVEN NELSON 08/09/2007 9:48 am Seamus Barnes presents for c/o L ear pain. Pt was dx with strep throat @ [facility] on Tuesday--currently taking Zithromax. Last dose of Tylenol was last noc. Initial Temp (Src) 98 (Oral) Wt 146 lbs 8.0 oz (66.5kg) Estimated Body mass index is 27.70 kg/(m^2) as calculated from: Height of 5' 1 (1.549 m) as of 06/12/07 Weight of 146 lbs 8.0 oz (66.452 kg) as of this encounter. BP completed using cuff size: NA (Not Taken) Raven Nelson RN documented in this encounter Plan of Treatment Upcoming Encounters Date Type Specialty Care Team Description 11/04/2022 Office Visit Internal Medicine Marcy Ricketts APRN FRONT DESK SPECIALIST [address] [place], [place] [address] (Wo rk) documented as of this encounter Procedures Procedure Name Priority Date/Time Associated Diagnosis Comme nts HCL TSH Routine 08/09/2007 10:06 AM Abnormal Weight Gain Results for this CDT procedure are i n the results section . HCL T4 FREE Routine 08/09/2007 10:06 AM Abnormal Weight Gain Results for this CDT procedure are i n the results section . documented in this encounter Results TSH- (08/09/2007 10:06 AM CDT) athologist Signature TSH 2.88 0.4 - 5.0 [facility] Specimen Anatomical Collection Method Collection Time Receive d Time (Source) Location / / Volume Laterality 08/09/2007 10:06 08/09/2007 AM CDT 10:11 AM CDT Matthieu Olsen MD LABORATORY Performing Organization Address City/[facility]/ZIP Code Phon e Number [facility] [address] [place] [phone] [facility] T4, FREE, SERUM (08/09/2007 10:06 AM CDT) athologist Signature T4 Free 1.25 0.70 - 1.85 [facility] ng/dL CLINIC LAB Specimen Anatomical Collection Method Collection Time Receive d Time (Source) Location / / Volume Laterality 08/09/2007 10:06 08/09/2007 AM CDT 10:11 AM CDT Matthieu Olsen MD LABORATORY Performing Organization Address City/State/ZIP Code Phon e Number [facility] [address] [place] [phone] [facility] documented in this encounter Visit Diagnoses Diagnosis Otitis media treated with antibiotics in the past 60 days - Primary Unspecified otitis media Abnormal weight gain documented in this encounter Care Teams Environmental Health Inspector Relationship Specialty Start Date End Date Matthieu Olsen MD PCP - General 12/15/01 documented as of this encounter
--- OUTSIDE RECORDS SUMMARY | 2022-09-26 20:27 | XMS_ITS | Encounter Summary ---
:1995 Author Organization [place] Address [address] [place] [address] Care Team Providers Name Role Phone Matthieu Olsen MD Primary Care Provider Unavailable Reason for Visit Reason Comments Consult C/o shortness of breath, kit moreg with excersize. Encounter Details Date Type Department Care Team Description 05/08/[address] [facility] Chato Haque, Sudha gh (Primary Dx) Clinic Meghan MEDEIROS [address] [place], [place] [address] [place], [place] [phone] (Wo rk) Social History Tobacco Use [...] - - Temperature 36.5 ??C (97.7 ??F) 05/08/2009 11:26 AM CDT Respiratory Rate - - Oxygen Saturation - - Inhaled Oxygen Concentration - - Weight 74.4 kg (164 lb) 05/08/2009 11:26 AM CDT Height 160 cm (5' 3) 05/08/2009 11:26 AM CDT Body Mass Index 29.05 05/08/2009 11:26 AM CDT Body Mass Index Percentile 98.04 % 05/08/2009 11:26 AM C DT Growth Chart: [facility] (Boys, 2-20 Years) documented in this encounter Progress Notes Chato Haque - 05/08/2009 11:57 AM CDT Last several months has noticed wheezing with exercise.. Will go away slowly if relaxes. Friends really noticing. No fh or past history of asthma. No coughing. No night time sx. No fevers. No allergy sx. No runny nose. Physical Exam: 14 year old well developed, well nourished male in no apparent distress. Tympanic membranes with good landmarks bilaterally. Normal color. Conjunctiva without erythema or mattering. Nares without erythema or drainage. Throat without erythema or exudate. No tonsilar hypertrophy. No lymphadenopathy Lungs clear to auscultation. Assessment: Exercise induced shortness of breath and probable wheeze. Most likely asthma. Plan: Symptomatic treatment reviewed. Prescription(s) given today as per orders. CXR Follow up after trial medication documented in this encounter Nursing Notes 05/08/2009 11:15 AM CDT >> MAMIE SANTIAGO [facility] May 08, 2009 11:27 AM Patient presents with: Consult - C/o shortness of breath, burning with excersize. Initial Temp 97.7 ??F (36.5 ??C) Ht 5' 3 (1.6 m) Wt 164 lb (74.39 kg) Body mass index is 29.05 kg/(m^2).. BP completed using cuff size: NA (Not Taken) Mamie BOO documented in this encounter Plan of Treatment Upcoming Encounters Date Type Specialty Care Team Description 11/04/2022 Office Visit Internal Medicine Marcy Ricketts APRN AIR ANTISUBMARINE OFFICER [address] [place], [place] [address] (Wo rk) documented as of this encounter Visit Diagnoses Diagnosis Cough - Primary documented in this encounter Care Teams Reservations Specialist Relationship Specialty Start Date End Date Matthieu Olsen MD PCP - General 12/15/01 documented as of this encounter
--- OUTSIDE RECORDS SUMMARY | 2022-09-26 20:27 | XMS_ITS | Encounter Summary ---
:1995 Author Organization [place] Address [address] [place] [address] Care Team Providers Name Role Phone Matthieu Olsen MD Primary Care Provider Unavailable Reason for Visit Reason Comments Ear Problem Encounter Details Date Type Department Care Team Description 08/22/2007 Office Visit [facility] Chiqui Rubi TR EATED WITH ABX Clinic Meghan Davidson MD IN LAST 60 DAYS [address] [place] [address] (Primary Dx) [address] [place] [phone] (Wo rk) Social History Tobacco Use Types [...] - Pulse - - Temperature 36.7 ??C (98.1 ??F) 08/22/2007 3:15 PM CDT Respiratory Rate - - Oxygen Saturation - - Inhaled Oxygen Concentration - - Weight 66.2 kg (146 lb) 08/22/2007 3:15 PM CDT Height 154.3 cm (5' 0.75) 08/22/2007 3:15 PM CDT Body Mass Index 27.81 08/22/2007 3:15 PM CDT Body Mass Index Percentile 98.25 % 08/22/2007 3:15 PM CD T Growth Chart: [facility] (Boys, 2-20 Years) documented in this encounter Progress Notes Chiqui Rubi - 08/22/2007 5:21 PM CDT SUBJECTIVE: Seamus is a 12 year old male who presents with his mother today with symptoms of left ear pain for > 2 weeks duration. He was treated for an ear infection approximately 10 days ago, His symptoms of ear pain and fullness have improved, but have not completely gone away. Fever absent. Associated symptoms include no other obvious symptoms. Pertinent negatives include sore throat, vomiting, shortness of breath, rash, mattery or red eyes, no decrease in appetite, lethargy, congestion, runny nose, fever or cough. Ill contacts include: none known Physical Exam: Temp (Src) 98.1 (Oral) Ht 5' .75 (1.54m) Wt 146 lbs (66.2kg) 98.57% of growth percentile based on [id number]. General: non-toxic, in no apparent distress, well developed and well nourished, in no respiratory distress and acyanotic and alert Skin: no suspicious lesions or rashes Head: atraumatic, normocephalic, symmetric Eye: conjunctiva clear bilaterally Neck: supple and few small anterior cervical nodes ENT: no tonsillar erythema, no tonsillar exudates, no vesicles noted in the mouth, TM's pearly asutdillo,normal light reflex right and TM erythematous/bulging left Chest/Lungs: clear to auscultation bilaterally without wheeze or crackles, no retractions and no nasal flaring CV: regular rate and rhythm and no murmurs, rubs, or gallops Assessment: Persistent Otitis Media Plan: Symptomatic treatment reviewed. May use acetaminophen, ibuprofen as needed for symptoms. Prescription(s) given today as per orders. Follow-up in clinic if symptoms not resolving 1-2 weeks. documented in this encounter Nursing Notes 08/22/2007 3:15 PM CDT >> REMA HARE 08/22/2007 3:28 pm Seamus Barnes presents for follow up LOM Rx w/Augmentin Med changed to amox due to cost, cont w/ c/o pressure and shots of pain , decreased hearing . Initial Temp (Src) 98.1 (Oral) Ht 5' .75 (1.54m) Wt 146 lbs (66.2kg) Body mass index is 27.82 kg/(m^2).. BP completed using cuff size: NA (Not Taken) documented in this encounter Plan of Treatment Upcoming Encounters Date Type Specialty Care Team Description 11/04/2022 Office Visit Internal Medicine Marcy Ricketts APRN FUR GRADER [address] [place], [place] [address] (Wo rk) documented as of this encounter Visit Diagnoses Diagnosis Otitis media treated with antibiotics in the past 60 days - Primary Unspecified otitis media documented in this encounter Care Teams Ruching Machine Operator Relationship Specialty Start Date End Date Matthieu Olsen MD PCP - General 12/15/01 documented as of this encounter
--- OUTSIDE RECORDS SUMMARY | 2022-09-26 20:27 | XMS_ITS | Encounter Summary ---
:1995 Author Organization [place] Address [facility] [place] [address] Care Team Providers Name Role Phone Matthieu Olsne MD Primary Care Provider Unavailable Reason for Visit Reason Comments Physical Encounter Details Date Type Department Care Team Description 06/12/2007 Office Visit [facility] Indra Kumar [facility] Meghan MEDEIROS EXAM (Primary Dx) [address] [place] [address] [place] [address] [phone] Social History Tobacco Use Types Packs/Day Years [...] Sign Reading Time Taken Comments Blood Pressure 102/68 06/12/2007 1:45 PM CDT Pulse - - Temperature 36.7 ??C (98.1 ??F) 06/12/2007 1:45 PM CDT Respiratory Rate - - Oxygen Saturation - - Inhaled Oxygen Concentration - - Weight 64.2 kg (141 lb 8 oz) 06/12/2007 1:45 PM CDT Height 154.9 cm (5' 1) 06/12/2007 1:45 PM CDT Body Mass Index 26.74 06/12/2007 1:45 PM CDT Body Mass Index Percentile 97.88 % 06/12/2007 1:45 PM CD T Growth Chart: CDC (Boys, 2-20 Years) documented in this encounter Progress Notes Indra Kumar - 06/12/2007 1:55 PM CDT Seamus Barnes is an 12 year old male here for a routine health maintenance visit, accompanied by his mother. QUESTIONS/CONCERNS: None FAMILY/ SOCIAL HISTORY Child lives with: mother, father and brother Recent family changes/social stressors: none Family History: No changes since last physical Language(s) spoken at home: Azerbaijani ENVIRONMENTAL RISK ASSESSMENT Is your child around anyone who smokes? YES Seat belt? YES Bike/sport helmet? YES CHICKEN POX HISTORY: Previously vaccinated DEVELOPMENTAL/ Behavioral Screening form: Form given. VISION normal at school HEARING normal at school REQUIRED VITAL SIGNS COMPLETED: yes BP 102/68 Temp (Src) 98.1 (Oral) Ht 5' 1 (1.55m) Wt 141 lbs 8.0 oz (64.2kg) 89.71% of growth percentile based on ahanexn-dzr-lsi. 98.46% of growth percentile based on xnelbj-nbg-oez. 97.88% of growth percentile based on BMI-for-age. Will you need a sports physical in the next year? yes Staff signature: Indra Kumar MD HEALTH HISTORY SINCE LAST VISIT No surgery, major illness or injury since last physical exam Cardiac risk assessment: none Immunization History Name Date(s) Administered ??? DPT/HIB 1996, 1996, 1996 ? ? DTAP (<7y) 1996, 1996, 1996, 05/25/1997, 05/15/2001 ??? HIB 1996, 1996, 1996, 05/25/1997 ??? Hepatitis B 1996, 1996, 1996 ??? IPV 1996, 1996, 1996, 05/15/2001 ??? MMR 05/25/1997, 05/15/2001 ??? OPV 1996, 1996, 1996 ? ? TRIHIBIT (DTAP/HIB, <7y) 05/25/1997 ALLERGIES No Known Allergies. DAILY ACTIVITIES NUTRITION: good appetite, eats variety of foods SLEEP: No concerns, sleeps well through night ELIMINATION: Normal bowel movements and Normal urination EXERCISE/ RECREATION: Organized / Team sports: football and hockey EDUCATION / EMPLOYMENT Concerns: no School performance / Academic skills: doing well in school MENTAL HEALTH Concerns: no Depression: NO SEXUALITY Dating: no SUBSTANCE ABUSE Smoking: no Alcohol: no Drugs: no VISION: For details see above, normal HEARING: For details see above, normal ROS GENERAL: See health history, nutrition and daily activities SKIN: No rash, hives or significant lesions HEENT: Hearing/vision: see above. No eye redness/discharge, nasal congestion, sneezing, snoring EYES: see Health History RESP: No cough, wheezing, SOB CV: No cyanosis, palpitations, syncope GI: See nutrition and elimination : See elimination MS: No swelling, arthralgia, weakness, gait problem NEURO: No headaches PSYCH: See development and behavior, or mental health EXAM GENERAL: Active, alert, in no acute distress. SKIN: Clear. No significant rash, abnormal pigmentation or lesions HEAD: Normocephalic EYES: normal lids, conjunctivae, sclerae EARS: Normal canals. Tympanic membranes are normal; [...] -M: Normal male external genitalia. Quinn stage 2, both testes descended, no hernia. ANTICIPATORY GUIDANCE The following topics were discussed: SOCIAL/ FAMILY: Peer pressure Increased responsibility Parent/ teen communication Limits/ consequences TV/ media School/ homework NUTRITION: Healthy food choices Dietary fat Family meals Weight management HEALTH / SAFETY: Adequate sleep/ exercise Dental care Seat belts Contact sports Bike/ sport helmets SEXUALITY: Body changes with puberty ASSESSMENT 1. Well teen with normal growth and development 2. Mild obesity PLAN Immunizations: See orders in EpicCare. Counseling provided regarding the benefits and risks related to the vaccines ordered today. I reviewed the signs and symptoms of adverse effects and when to seek medical care if they should arise. See other orders in EpicCare Referrals/Ongoing Specialty care: No Dental visit recommended: Continue care every 6 months Lifestyle, health, and safety counseling Discussed dental care and mouthguard use Discussed Lead and TB exposure--(Testing not indicated) RTC: 13 year RHM visit documented in this encounter Nursing Notes 06/12/2007 1:45 PM CDT >> ALLISON GIFFORD 06/12/2007 1:48 pm Seamus is here for a physical today. There are no concerns No changes in family history since last physical. No recent social changes/stressors. Allison Gifford MA documented in this encounter Plan of Treatment Upcoming Encounters Date Type Specialty Care Team Description 11/04/2022 Office Visit Internal Medicine Marcy Ricketts APRN INSURANCE PREMIUM AUDITOR [address] [place], [place] [address] (Wo rk) documented as of this encounter Visit Diagnoses Diagnosis Routine or child health check - P rimary documented in this encounter Care Teams Refrigeration Engine Operator Relationship Specialty Start Date End Date Matthieu Olsen MD PCP - General 12/15/01 documented as of this encounter
--- OUTSIDE RECORDS SUMMARY | 2022-09-26 20:27 | XMS_ITS | Encounter Summary ---
:1995 Author Organization [place] Address [facility] [place] [place] [address] Care Team Providers Name Role Phone Matthieu Olsen MD Primary Care Provider Unavailable Reason for Visit Reason Comments Ear Problem Encounter Details Date Type Department Care Team Description 09/05/2007 Office Visit [facility] Chiqui Rubi S RECHECK RESOLVED (NO ABX INDICATED) (Primary Dx); Clinic Meghan Davidson MD VACCINE FOR INFLUENZA [address] [place] [address] [place] [phone] (Wo rk) Social History Tobacco Use Types [...] Pressure - - Pulse - - Temperature 36.8 ??C (98.3 ??F) 09/05/2007 3:15 PM AGRICULTURAL EXTENSION OFFICER Respiratory Rate - - Oxygen Saturation - - Inhaled Oxygen Concentration - - Weight 66.7 kg (147 lb) 09/05/2007 3:15 PM AGRICULTURAL EXTENSION OFFICER Height 153.7 cm (5' 0.5) 09/05/2007 3:15 PM AGRICULTURAL EXTENSION OFFICER Body Mass Index 28.24 09/05/2007 3:15 PM AGRICULTURAL EXTENSION OFFICER Body Mass Index Percentile 98.39 % 09/05/2007 3:15 PM CS T Growth Chart: [facility] (Boys, 2-20 Years) documented in this encounter Progress Notes Chiqui Rubi - 09/05/2007 4:50 PM CST SUBJECTIVE: Seamus is a 12 year old male who presents with his mother for recheck of his ears after an ear infection 2 weeks ago. He continues to notice some fullness and plugged feeling of both ears, especially the left ear. The school nurse looked at his ear last week and saw some blood in there. He does admit to scratching inside of his ear with a pencil last week. He otherwise denies ear pain, congestion, cough, sore throat or fever. OBJECTIVE: Temp (Src) 98.3 (Oral) Ht 5' .5 (1.54m) Wt 147 lbs (66.7kg) 98.61% of growth percentile based on ddxnlf-avi-jdy. General: non-toxic, in no apparent distress, alert, playful and cooperative ENT: TM's pearly astudillo, normal light reflex bilateral and left external ear canal With an excoriated area near the TM which is healing ASSESSMENT: Ear Recheck, OM resolved. PLAN: Provided reassurance, call if any further ear pain, fever, or other concerning symptoms arise. Desires flu shot, will give this today. CULTURAL EXTENSION OFFICER documented in this encounter Nursing Notes 09/05/2007 3:15 PM CST >> REMA HARE 09/05/2007 5:07 pm Are you currently ill with more than a cold: No Are you allergic to eggs or egg products: No Are you allergic to Thimerosal: No Have you had a reaction to an influenza vaccine in the past: No Have you ever been diagnosed with Guillain-Ramirez?? Syndrome: No B. ABHINAV Hare >> REMA HARE 09/05/2007 3:30 pm Seamus Barnes presents for ear recheck, nurse at school Looked in Lt ear and noted sm hemorrhage . Last wk Initial Temp (Src) 98.3 (Oral) Ht 5' .5 (1.54m) Wt 147 lbs (66.7kg) Body mass index is 28.23 kg/(m^2).. BP completed using cuff size: NA (Not Taken) documented in this encounter Plan of Treatment Upcoming Encounters Date Type Specialty Care Team Description 11/04/2022 Office Visit Internal Medicine Marcy Ricketts APRN FRAME WIRER [address] [place], [place] [address] (Wo rk) documented as of this encounter Visit Diagnoses Diagnosis Otitis media resolved - Primary Other follow-up examination Need for prophylactic vaccination and in oculation against influenza documented in this encounter Care Teams Eligibility Clerk Relationship Specialty Start Date End Date Matthieu Olsen MD PCP - General 12/15/01 documented as of this encounter
--- OUTSIDE RECORDS SUMMARY | 2022-09-26 20:27 | XMS_ITS | Encounter Summary ---
:1995 Author Organization [place] Address [address] [facility] [place] [address] Care Team Providers Name Role Phone Matthieu Olsen MD Primary Care Provider Unavailable Reason for Visit Reason Comments Ear Problem Patient here with right ear bothering him since yesterday. Minimal pain. Encounter Details Date Type Department Care Team Description 05/06/2010 Office Visit [facility] Chato Haque, Ot er Acute Otitis Clinic Capron MD Externa (Primary Dx) [address] [place] [address] [place] [phone] (Wo rk) Social History [...] - - Temperature 36.7 ??C (98.1 ??F) 05/06/2010 11:50 AM CDT Respiratory Rate - - Oxygen Saturation - - Inhaled Oxygen Concentration - - Weight 78.2 kg (172 lb 8 oz) 05/06/2010 11:50 AM CDT Height - - Body Mass Index 27.43 04/30/2010 1:12 PM CDT Body Mass Index Percentile 96.41 % 05/06/2010 11:50 AM C DT Growth Chart: [facility] (Boys, 2-20 Years) documented in this encounter Progress Notes Chato Haque - 05/06/2010 12:11 PM CDT Mild OE. No there sx. No runny nose cough or fever. Mild ear ache since yesteray. Appetite and activity normal. Physical Exam: 15 year old well developed, well nourished male in no apparent distress. Tympanic membrane right normal and good landmarks, left normal and good landmarks. Some irritation and swelling canal. Barely noticeable. Conjunctiva without erythema or mattering. Nares without erythema or drainage. Throat without erythema or exudate. No tonsilar hypertrophy. No lymphadenopathy Lungs clear to auscultation. Assessment: OE Plan: Symptomatic treatment reviewed. Prescription(s) given today as per orders. Follow-up in clinic if no improvment 24-48 hours. documented in this encounter Nursing Notes 05/06/2010 11:30 AM CDT >> YADI MARTINEZ Wed May 06, 2010 11:51 AM Patient presents with: Ear Problem - Patient here with right ear bothering him since yesterday. Minimal pain. Initial Temp(Src) 98.1 ??F (36.7 ??C) (Oral) Wt 172 lb 8 oz (78.245 kg) Estimated Body mass indexis 27.42 kg/(m^2) as calculated from the following: Height as of 04/30/10: 5' 6.5(1.689 m). Weight as of this encounter: 172 lb 8 oz(78.245 kg). BP completed using cuff size: NA (Not Taken). Yadi Martinez MENDER KNIT GOODS documented in this encounter Plan of Treatment Upcoming Encounters Date Type Specialty Care Team Description 11/04/2022 Office Visit Internal Medicine Marcy Ricketts APRN COOK FRY [address] [place], [place] [address] (Wo rk) documented as of this encounter Visit Diagnoses Diagnosis Other acute otitis externa - Primary documented in this encounter Care Teams Lastex Operator Relationship Specialty Start Date End Date Matthieu Olsen MD PCP - General 12/15/01 documented as of this encounter
--- OUTSIDE RECORDS SUMMARY | 2022-09-26 20:27 | XMS_ITS | Encounter Summary ---
:1995 Author Organization [place] Address [address] [place] [address] Care Team Providers Name Role Phone Matthieu Olsen MD Primary Care Provider Unavailable Encounter Details Date Type Department Care Team Description 08/09/2007 Telephone [facility] Chato Haque MD [place] [address] [place] [address] [place] [address] [phone] Social History Tobacco Use Types Packs/Day Years [...] this encounter Miscellaneous Notes Telephone Encounter - Chato Haque - 08/09/2007 6:11 PM CDT Discussed that amoxicillin will have modest chance of working for child on zithroamx with om. Other abx pretty much all expensive, but better chance will work. Parent would like to try amoxil and will contact us if not better several days. documented in this encounter Plan of Treatment Upcoming Encounters Date Type Specialty Care Team Description 11/04/2022 Office Visit Internal Medicine Marcy Ricketts APRN ACADEMIC SUPPORT COORDINATOR [address] [place], [place] [address] (Wo rk) documented as of this encounter Visit Diagnoses Diagnosis Acute suppurative otitis media without s pontaneous rupture of eardrum - Primary documented in this encounter Care Teams Can Line Examiner Relationship Specialty Start Date End Date Matthieu Olsen MD PCP - General 12/15/01 documented as of this encounter
--- OUTSIDE RECORDS SUMMARY | 2022-09-26 20:27 | XMS_ITS | Encounter Summary ---
:1995 Author Organization [place] Address [address] [facility] [place] [address] Care Team Providers Name Role Phone Matthieu Olsen MD Primary Care Provider Unavailable Reason for Visit Reason Comments Depression Encounter Details Date Type Department Care Team Description 06/26/2010 Office Visit [facility] Matthieu Olesn D epress Dis, Clinic Meghan Hobson MD Severe (Primary Dx) [address] [place] [address] Social History Tobacco Use Types [...] Sign Reading Time Taken Comments Blood Pressure 116/64 06/26/2010 9:07 AM CDT Pulse - - Temperature 36.6 ??C (97.8 ??F) 06/26/2010 9:07 AM CDT Respiratory Rate - - Oxygen Saturation - - Inhaled Oxygen Concentration - - Weight 77.1 kg (170 lb) 06/26/2010 9:07 AM CDT Height 170.8 cm (5' 7.25) 06/26/2010 9:07 AM CDT Body Mass Index 26.43 06/26/2010 9:07 AM CDT Body Mass Index Percentile 95.07 % 06/26/2010 9:07 AM CD T Growth Chart: [facility][NOTE 3] (Boys, 2-20 Years) documented in this encounter Progress Notes Matthieu Olsen - 06/29/2010 11:21 PM CDT SUBJECTIVE: Seamus Barnes is a 15 year old male who presents for evaluation and treatment of depressive symptoms. Current symptoms include depressed mood, hopelessness, diminished interest or pleasure in activities, decreased appetite, insomnia, psychomotor retardation, fatigue, feelings of worthlessness, feelings of guilt, difficulty with concentration, recurrent thoughts of or suicide, suicidal thoughts without plan, anxiety. Onset approximately 1 year ago; symptoms have been gradually worsening since that time. Family history is positive for depression in the patient???s mother. Previous treatment he has tried include individual therapy only recently. Depression risk factors: positive family history in patient's mother and negative life event negative relationship with dad Organic causes of depression present: none Patient Active Problem List Diagnoses Code ??? 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 History Social History ??? Marital Status: Single Spouse Name: N/A Number of Children: N/A ??? Years of Education: N/A Occupational History ??? Not on file. Social History Main Topics ??? Tobacco Use: Passive dad smokes outside ??? Alcohol Use: No ??? Drug Use: No ??? Sexually Active: No saúl 01/06/10 Other Topics Concern ??? Not on file Social History Narrative ??? No narrative on file REVIEW OF SYSTEMS: OBJECTIVE: .v Mental Status Examination: Posture and motor behavior: negative Dress, grooming, personal hygiene: negative Facial expression: positive for worried and requesting help Speech: normal Mood: positive for depressed Coherency and relevance of thought: normal Thought content: normal Perceptions: normal Orientation: normal Attention and concentration: normal Memory: : normal Information: normal Vocabulary: normal Abstract reasoning: normal Judgment: normal PHQ score 23 suggestive of severe major depression ASSESSMENT: Major depression - PLAN: because of worsening symptoms despite psychotherapy and suicidal thoughts and not wanting to be living any more,although no plan,refer [facility] for evaluation and treatment Spent 30 minutes more than 50% counselling documented in this encounter Nursing Notes 06/26/2010 9:00 AM CDT >> IAN MICHEL Fri Jun 26, 2010 9:09 AM Patient presents with: Depression Initial BP 116/64 Temp(Src) 97.8 ??F (36.6 ??C) (Oral) Ht 5' 7.25 (1.708 m) Wt 170 lb (77.111kg) Estimated Body mass index is 26.43 kg/(m^2) as calculated from the following: Height as of this encounter: 5' 7.25(1.708 m). Weight as of this encounter: 170 lb(77.111 kg). BP completed using cuff size: regular. 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
--- OUTSIDE RECORDS SUMMARY | 2022-09-26 20:27 | XMS_ITS | Encounter Summary ---
:1995 Author Organization [place] Address [address] [facility] [place] [address] Care Team Providers Name Role Phone Matthieu Olsen MD Primary Care Provider Unavailable Encounter Details Date Type Department Care Team Description 03/04/2008 Medical Correspondence [facility] Larissa Olsen [facility] Meghan Hobson MD [address] [place] [address] Social History Tobacco Use Types [...] Office Visit Internal Medicine Marcy Ricketts APRN DEVOPS CONSULTANT [address] [place], [place] [address] (Wo rk) documented as of this encounter Visit Diagnoses Not on filedocumented in this encounter Care Teams Cook Syrup Maker Relationship Specialty Start Date End Date Matthieu Olsen MD PCP - General 12/15/01 documented as of this encounter
--- OUTSIDE RECORDS SUMMARY | 2022-09-26 20:27 | XMS_ITS | Encounter Summary ---
:1995 Author Organization [place] Address [address] [facility] [place] [address] Care Team Providers Name Role Phone Matthieu Olsen MD Primary Care Provider Unavailable Reason for Visit Reason Onset Date Comments Medication Request 10/30/2010 Encounter Details Date Type Department Care Team Description 10/30/2010 Telephone [facility] Matthieu Olsen M edication Request Clinic Meghan MEDEIROS [address] [place] [address] Social History Tobacco Use Types [...] Notes Telephone Encounter - Kandace Feng - 10/30/2010 10:59 AM CST Notified mom of message. Plans to come in on Tuesday for appt. Kandace Feng RN [employer] Telephone Encounter - Matthieu Olsen - 10/30/2010 10:48 AM CST Please advise mom that I need to see him to discuss [employer] Telephone Encounter - Kandace Feng - 10/30/2010 10:24 AM CST Mom calling--she states that pt's psychologist called and s/w MD this am about starting him on some new meds. Mom would like to discuss with MD via phone if possible. Nurse assisted her to schedule an appt for 11/02, but mom would prefer to handle via phone if possible. Kandace Feng RN [employer] documented in this encounter Plan of Treatment Upcoming Encounters Date Type Specialty Care Team Description 11/04/2022 Office Visit Internal Medicine Marcy Ricketts APRN DRAMA CRITIC [address] [place], [place] [address] (Wo rk) documented as of this encounter Visit Diagnoses Not on filedocumented in this encounter Care Teams Stock Holder Relationship Specialty Start Date End Date Matthieu Olsen MD PCP - General 12/15/01 documented as of this encounter
--- OUTSIDE RECORDS SUMMARY | 2022-09-26 20:27 | XMS_ITS | Encounter Summary ---
:1995 Author Organization [place] Address [facility] [place] [address] Care Team Providers Name Role Phone Matthieu Olsen MD Primary Care Provider Unavailable Reason for Visit Reason Onset Date Comments Referral 06/30/2010 psych Encounter Details Date Type Department Care Team Description 06/30/2010 Telephone [facility] Matthieu Olsen, Referral (psych) Meghan MEDEIROS [address] [place] [address] Social History Tobacco Use Types [...] this encounter Miscellaneous Notes Telephone Encounter - Vanesa Marks - 06/30/2010 3:00 PM CDT Spoke w/mom and recommended a web site she could search to find a Psychiatrist. She will do the research and then check w/[employer] to determine who the participating providers would be w/her plan. Telephone Encounter - Kandace Feng - 06/30/2010 2:04 PM CDT Mom calling--she would like a recommendation for a psychiatrist from pcp. Nurse also transferred to [facility] for recommendations. Kandace Feng RN documented in this encounter Plan of Treatment Upcoming Encounters Date Type Specialty Care Team Description 11/04/2022 Office Visit Internal Medicine Marcy Ricketts APRN CUSTOMIZER [address] [place], [place] [address] (Wo rk) documented as of this encounter Visit Diagnoses Not on filedocumented in this encounter Care Teams Greeter Relationship Specialty Start Date End Date Matthieu Olsen MD PCP - General 12/15/01 documented as of this encounter
--- OUTSIDE RECORDS SUMMARY | 2022-09-26 20:28 | XMS_ITS | Encounter Summary ---
:1995 Author Organization [place] Address [address] [facility] [facility] [address] [place] [address] Care Team Providers Name Role Phone Matthieu Olsen MD Primary Care Provider Unavailable Encounter Details Date Type Department Care Team Description 08/19/2004 Medical Correspondence [facility] MD [address] [place] [address] Social History Tobacco Use Types Packs/Day Years Used Date Smoking Tobacco: Never Assessed Alcohol Habits Answer Date Recorded How often [...] Team Description 11/04/2022 Office Visit Internal Medicine Maryc Ricketts APRN PHYSICIST NUCLEAR [address] [place], [place] [address] (Wo rk) documented as of this encounter Visit Diagnoses Not on filedocumented in this encounter Care Teams Applications Support Specialist Relationship Specialty Start Date End Date Matthieu Olsen MD PCP - General 12/15/01 documented as of this encounter
--- OUTSIDE RECORDS SUMMARY | 2022-09-26 20:28 | XMS_ITS | Encounter Summary ---
:1995 Author Organization [place] Address [facility] [place] [address] Care Team Providers Name Role Phone Matthieu Olsen MD Primary Care Provider Unavailable Encounter Details Date Type Department Care Team Description 07/16/2002 Abstract [facility] [place] [address] Social History Tobacco Use [...] Office Visit Internal Medicine Marcy Ricketts APRN NURSE EMERGENCY [address] [place], [place] [address] (Wo rk) documented as of this encounter Procedures Procedure Name Priority Date/Time Associated Diagnosis Comme nts ABSTRACT LABCARE REPORT Routine 07/17/2002 documented in this encounter Results ABSTRACT LABCARE REPORT (07/17/2002) Narrative This result has an attachment that is no t available. Alyson Wood LABORATORY documented in this encounter Visit Diagnoses Not on filedocumented in this encounter Care Teams Biomedical Engineer Relationship Specialty Start Date End Date Matthieu Olsen MD PCP - General 12/15/01 documented as of this encounter
--- OUTSIDE RECORDS SUMMARY | 2022-09-26 20:28 | XMS_ITS | Encounter Summary ---
:1995 Author Organization [place] Address [address] [facility] [place] [address] Care Team Providers Name Role Phone Matthieu Olsen MD Primary Care Provider Unavailable Reason for Visit Reason Comments Derm Problem wart Encounter Details Date Type Department Care Team Description 09/13/2005 Office Visit [facility] Matthieu Olsen VIRAL W ARTS NOS Clinic Meghan Hobson MD (Primary Dx) [address] [place] [address] Social History Tobacco Use Types Packs/Day Years Used Date Smoking Tobacco: Passive Smoke Exposure - Never Smoker Alcohol Habits Answer Date Recorded How often [...] - - Temperature 36.9 ??C (98.4 ??F) 09/13/2005 4:45 PM PROGRESS WORKER Respiratory Rate - - Oxygen Saturation - - Inhaled Oxygen Concentration - - Weight 57.2 kg (126 lb) 09/13/2005 4:45 PM PROGRESS WORKER Height 145.4 cm (4' 9.25) 09/13/2005 4:45 PM PROGRESS WORKER Body Mass Index 27.03 09/13/2005 4:45 PM PROGRESS WORKER Body Mass Index Percentile 98.84 % 09/13/2005 4:45 PM CS T Growth Chart: [facility] (Boys, 2-20 Years) documented in this encounter Progress Notes Matthieu Olsen - 09/15/2005 8:16 PM CST S: Seamus presents for wart treatment. He has 3 plantar wart(s) located on the right foot. Here for retreatment. O: Vitals: as charted General: Patient is well nourished, alert and oriented in no acute distress. Normal mood and affect.Appropiate judgement and insight. 3 wart(s) located on the right foot. Wart(s) pared with blade. Treated with 3 freeze thaw cycles of cryotherapy. Discussed the fact that there may be discomfort like a burn for the next several days. A blister mayform and if significant discomfort with this may release pressure with a sterile needle. If severe symptoms arise or if not totally resolved in the next 4 weeks then should follow back up. RESS WORKER documented in this encounter Nursing Notes 09/13/2005 4:45 PM CST >> ALECIA GHOSH 09/13/2005 4:51 pm Seamus Barnes presents for wart on bottom of right foot it has been treated once before Alecia Ghosh MA . Initial Temp (Src) 98.4 (Oral) Ht 4' 9.25 (1.45m) Wt 126 lbs (57.2kg) Body Mass Index is 27.03 kg/(m^2).. BP completed using cuff size: NA (Not Taken) documented in this encounter Plan of Treatment Upcoming Encounters Date Type Specialty Care Team Description 11/04/2022 Office Visit Internal Medicine Marcy Ricketts APRN HOME ENERGY INSPECTOR [address] [place], [place] [address] (Wo rk) documented as of this encounter Procedures Procedure Name Priority Date/Time Associated Diagnosis Comme nts HC DESTRUCT PREMALIGNANT Routine 09/15/2005 8:15 PM Viral Wart s Nos LESION, 2-14 PROGRESS WORKER HC DESTRUCT PREMALIGNANT Routine 09/15/2005 8:15 PM Viral Wart s Nos LESION, FIRST PROGRESS WORKER documented in this encounter Visit Diagnoses Diagnosis Viral warts, unspecified - Primary documented in this encounter Care Teams Research Specialist Relationship Specialty Start Date End Date Matthieu Olsen MD PCP - General 12/15/01 documented as of this encounter
--- OUTSIDE RECORDS SUMMARY | 2022-09-26 20:28 | XMS_ITS | Encounter Summary ---
:1995 Author Organization [place] Address [facility] [place] [address] Care Team Providers Name Role Phone Matthieu Olsen MD Primary Care Provider Unavailable Reason for Visit Reason Comments Cough cough and head congestion-po sitive strep last week/ Fever 101 last noc and this am Encounter Details Date Type Department Care Team Description 01/13/2006 Office Visit [facility] Matthieu Olsen ACUTE P HARYNGITIS (Primary Dx); Clinic Meghan Hobson MD FEVER; [address] [place] [address] Social History Tobacco Use Types [...] - - Temperature 36.9 ??C (98.4 ??F) 01/13/2006 2:00 PM IRON INSTALLER Respiratory Rate - - Oxygen Saturation - - Inhaled Oxygen Concentration - - Weight 57.6 kg (127 lb) 01/13/2006 2:00 PM IRON INSTALLER Height 147.3 cm (4' 10) 01/13/2006 2:00 PM IRON INSTALLER Body Mass Index 26.54 01/13/2006 2:00 PM IRON INSTALLER Body Mass Index Percentile 98.56 % 01/13/2006 2:00 PM CS T Growth Chart: [facility] (Boys, 2-20 Years) documented in this encounter Progress Notes Matthieu Olsen - 01/17/2006 9:08 AM CST Semaus is here today for cold symptoms of 2 days days duration. Main symptom(s) runny nose, congestion and fever. Fever present, up to 102 degrees for 1 day. Associated symptoms include no other obvious symptoms. Pertinent negatives include shortness of breath, wheezing, or lethargy. Had strep recently Physical Exam: 11 year old well developed, well nourished male in no apparent distress. Ears normal. Throat and pharynx injected. Neck supple. No adenopathy or masses in the neck or supraclavicular regions. Sinuses non tender.. Nasal drainage clear. Lungs clear to auscultation. Heart regular rate and rhythm without murmurs. No tachycardia. The abdomen is soft without tenderness, guarding, mass or organomegaly. Bowel sounds are normal. No CVA tenderness or inguinal adenopathy noted.. Assessment: Viral Upper Respiratory Infection fever Pharyngitis Plan: strep ID negative No prescriptions or referals given. Symptomatic treatment reviewed. Follow-up in clinic if symptoms not resolving 1-2 weeks. OTC medications for respiratory symptom control. Examples and dosages reviewed. Follow up if symptomduration greater than two weeks or worsening symptoms. Otherwise per orders. INSTALLER documented in this encounter Nursing Notes 01/13/2006 2:00 PM CST >> FRANCISCO ALMEIDA 01/13/2006 2:05 pm Seamus Barnes presents for a fever and cough. Initial Temp (Src) 98.4 (Oral) Ht 4' 10 (1.47m) Wt 127 lbs (57.6kg) Body mass index is 26.55 kg/(m^2).. BP completed using cuff size: NA (Not Taken) documented in this encounter Plan of Treatment Upcoming Encounters Date Type Specialty Care Team Description 11/04/2022 Office Visit Internal Medicine Marcy Ricketts, BLACKSMITH APPRENTICE WIRE SAW OPERATOR [address] [place], [place] [address] (Wo rk) documented as of this encounter Procedures Procedure Name Priority Date/Time Associated Diagnosis Comme nts HCL BETA STREP Routine 01/13/2006 2:40 PM Acute Pharyngitis Re sults for this CONFIRM IRON INSTALLER procedure are i n the results section. HCL STREP GROUP A Routine 01/13/2006 2:40 PM Acute Pharyngitis Results for this AG (RAPID) IRON INSTALLER procedure are i n the results section. documented in this encounter Results BETA STREP CONFIRM (01/13/2006 2:40 PM IRON INSTALLER) Component Value Ref Test Analysis Performed At [facility] gist Range Method Time Signature Specimen Throat [facility] LAB Culture Micro No Beta RICHVIEW Streptococcus [facility] LAB Report status FINAL [id number] [facility] LAB Specimen Anatomical Collection Method Collection Time Receive d Time (Source) Location / / Volume Laterality 01/13/2006 2:40 PM 6 2:46 IRON INSTALLER PM IRON INSTALLER Matthieu Olsen MD LABORATORY Performing Organization Address City/[facility]/ZIP Code Phon e Number [facility] [address] [place], [place] [address] [address] [facility] LAB STREP GROUP A AG (RAPID) (01/13/2006 2:40 PM IRON INSTALLER) Component Value Ref Test Analysis Performed At [facility] Range Method Time Signature Specimen Throat [facility] LAB Rapid Strep A NEGATIVE: No Group A strepto coccal antigen detected by immunoassay, await RICHVIEW Screen culture report. [facility] LAB Report status FINAL [id number] [facility] LAB Specimen Anatomical Collection Method Collection Time Receive d Time (Source) Location / / Volume Laterality 01/13/2006 2:40 PM 6 2:46 IRON INSTALLER PM IRON INSTALLER Matthieu Olsen MD LABORATORY Performing Organization Address City/[facility]/ZIP Code Phon e Number [facility] [address] [place], [place] [address] [address] [facility] LAB documented in this encounter Visit Diagnoses Diagnosis Acute pharyngitis - Primary Fever and other physiologic disturbances of temperature regulation Acute upper respiratory infections of un specified site documented in this encounter Care Teams Millinery Department Manager Relationship Specialty Start Date End Date Matthieu Olsen MD PCP - General 12/15/01 documented as of this encounter
--- OUTSIDE RECORDS SUMMARY | 2022-09-26 20:28 | XMS_ITS | Encounter Summary ---
:1995 Author Organization [place] Address [address] [place] [address] Care Team Providers Name Role Phone Matthieu Olsen MD Primary Care Provider Unavailable Reason for Visit Reason Comments Pharyngitis Encounter Details Date Type Department Care Team Description 01/09/2004 Office Visit [facility] Matthieu Olsen ACUTE P HARYNGITIS Clinic Meghan Hobson MD (Primary Dx) [address] [place] [address] Social History Tobacco Use Types [...] Pressure - - Pulse - - Temperature 36.4 ??C (97.5 ??F) 01/09/2004 9:00 AM SHIPPING INSPECTOR Respiratory Rate - - Oxygen Saturation - - Inhaled Oxygen Concentration - - Weight 44.7 kg (98 lb 8 oz) 01/09/2004 9:00 AM SHIPPING INSPECTOR Height - - Body Mass Index - - documented in this encounter Progress Notes 01/09/2004 9:00 AM SHIPPING INSPECTOR SUBJECTIVE: sore throat and fever Not exposed to strep. ROS:appetite normal,no VILLALBA,No stomache ache OBJECTIVE: Vital signs: Temp (Src) 97.5 (Oral) Wt 98 lbs 8 oz (44.7kg) WNL - afebrile. No acute distress. Skin is unremarkable. TMs appear normal. Nose is nonedematous, no erythema. Oropharynx has mild erythema, minimal edema, no exudate is seen. The neck is supple with no adenopathy. Lungs are clear. The heart has a normal rhythm and rate without murmurs. LAB: Rapid strep screen is ne margo. ASSESSMENT: 1) Viral pharyngitis. PLAN: The patient is told to use Tylenol or Motrin f or fever and pain control. Will phone the patient if the rapid strep screen turns positive over the next 48 hours. Seamus Barnes was istructed that if symptoms would worsening or there is no impr ovement to return to clinic for additional intervention. This patient stated that he understood the i nstructions given him. Quiana OLSEN M.D. documented in this encounter Nursing Notes 01/09/2004 9:00 AM CST >> BRENDA VILA 01/09/2004 9:14 am Patient here with sore throat since yesterday, also had fever this AM. Brenda Vila BUSINESS SOLUTIONS ARCHITECT documented in this encounter Plan of Treatment Upcoming Encounters Date Type Specialty Care Team Description 11/04/2022 Office Visit Internal Medicine Marcy Ricketts APRN COMPLIANCE PROFESSIONAL [address] [place], [place] [address] (Wo rk) documented as of this encounter Procedures Procedure Name Priority Date/Time Associated Diagnosis Comme nts HCL BETA STREP Routine 01/09/2004 9:09 AM Acute Pharyngitis Re sults for this CONFIRM SHIPPING INSPECTOR procedure are i n the results section. HCL STREP GROUP A Routine 01/09/2004 9:09 AM Acute Pharyngitis Results for this AG (RAPID) SHIPPING INSPECTOR procedure are i n the results section. documented in this encounter Results BETA STREP CONFIRM (01/09/2004 9:09 AM SHIPPING INSPECTOR) Component Value Ref Test Analysis Performed At [facility] Range Method Time Signature Specimen Throat [place] Description [facility] Culture Micro No Beta BLAIN [facility] Report status FINAL [id number] [facility] LAB Specimen Anatomical Collection Method Collection Time Receive d Time (Source) Location / / Volume Laterality 01/09/2004 9:09 AM 4 9:19 SHIPPING INSPECTOR AM SHIPPING INSPECTOR Matthieu Olsen MD LABORATORY Performing Organization Address City/State/ZIP Code Phon e Number [facility] [address] [place] [address] [facility] LAB STREP GROUP A AG (RAPID) (01/09/2004 9:09 AM SHIPPING INSPECTOR) Component Value Ref Test Analysis Performed At [facility] Range Method Time Signature Specimen Throat [facility] LAB Rapid Strep A NEGATIVE: No Group A strepto coccal antigen detected by immunoassay, await BLAIN Screen culture report. [facility] LAB Report status FINAL [id number] [facility] LAB Specimen Anatomical Collection Method Collection Time Receive d Time (Source) Location / / Volume Laterality 01/09/2004 9:09 AM 4 9:19 SHIPPING INSPECTOR AM SHIPPING INSPECTOR Matthieu Olsen MD LABORATORY Performing Organization Address City/[facility]/ZIP Code Phon e Number [facility] [address] [place], [place] [address] [address] [facility] documented in this encounter Visit Diagnoses Diagnosis Acute pharyngitis - Primary documented in this encounter Care Teams Operations Supervisor 2Nd Shift Relationship Specialty Start Date End Date Matthieu Olsen MD PCP - General 12/15/01 documented as of this encounter
--- OUTSIDE RECORDS SUMMARY | 2022-09-26 20:28 | XMS_ITS | Encounter Summary ---
:1995 Author Organization [place] Address [address] [facility] [address] Care Team Providers Name Role Phone Matthieu Olsen MD Primary Care Provider Unavailable Encounter Details Date Type Department Care Team Description 06/09/2003 Medical Correspondence [facility] MD [address] [place] [address] Social History Tobacco Use Types [...] Office Visit Internal Medicine Marcy Ricketts APRN EXTRA GANG SUPERVISOR [address] [place], [place] [address] (Wo rk) documented as of this encounter Visit Diagnoses Not on filedocumented in this encounter Care Teams Semi Automatic Sewing Machine Operator Relationship Specialty Start Date End Date Matthieu Olsen MD PCP - General 12/15/01 documented as of this encounter
--- OUTSIDE RECORDS SUMMARY | 2022-09-26 20:28 | XMS_ITS | Encounter Summary ---
:1995 Author Organization [place] Address [address] [facility] [address] [place] [address] Care Team Providers Name Role Phone Matthieu Olsen MD Primary Care Provider Unavailable Reason for Visit Reason Comments Other heel pain Encounter Details Date Type Department Care Team Description 07/19/2005 Office Visit [facility] Matthieu Olsen heel pa in (Primary Dx); Clinic Meghan Hobson MD ACHILLES TENDINITIS; [address] [place] [address] Social History Tobacco Use Types [...] Pressure - - Pulse - - Temperature 37.3 ??C (99.1 ??F) 07/19/2005 3:30 PM CDT Respiratory Rate - - Oxygen Saturation - - Inhaled Oxygen Concentration - - Weight 56.2 kg (124 lb) 07/19/2005 3:30 PM CDT Height 144.8 cm (4' 9) 07/19/2005 3:30 PM CDT Body Mass Index 26.83 07/19/2005 3:30 PM CDT Body Mass Index Percentile 98.86 % 07/19/2005 3:30 PM CD T Growth Chart: [facility] (Boys, 2-20 Years) documented in this encounter Progress Notes Matthieu Olsen - 07/20/2005 7:55 AM CDT 10 yr old in with mom ,as he has been c/o back of the left heel painful after running or playing football.No h/o fott injury.Pain gets better with time but returns as he plays again. Also has warts at the bottom of right foot. Exam:Left footLno obvious deformityor swelling,No evidence of flat foot or high arch.Tenderness at the insertion of the achilles tendon. @ [facility] warts right foot X-ral left heel normal Impression:Left heel pain-possible achilles tendinitis Planter warts x 2 Plan:Rest,ice after activity and ibuprofen and f/u if getting worse Wart frozen with lequid nitrogen,after care discussed and recheck in 2-3 weeks by phone documented in this encounter Nursing Notes 07/19/2005 3:30 PM CDT >> ABELARDO GHOSH 07/19/2005 3:37 pm Seamus Barnes presents for left heel hurts after running or playing football off and on for at least 1 month; right heel has a hard bump on it Pat La PEREZ . Initial Temp (Src) 99.1 (Oral) Ht 4' 9 (1.45m) Wt 124 lbs (56.2kg) Body Mass Index is 26.83 kg/(m^2).. BP completed using cuff size: NA (Not Taken) documented in this encounter Plan of Treatment Upcoming Encounters Date Type Specialty Care Team Description 11/04/2022 Office Visit Internal Medicine Marcy Ricketts APRN DRIER AND GRINDER TENDER [address] [place], [place] [address] (Wo rk) documented as of this encounter Procedures Procedure Name Priority Date/Time Associated Comments Diagnosis HC DESTRUCT Routine 07/20/2005 7:55 AM Viral Warts Nos PREMALIGNANT LESION, CDT 2-14 HC DESTRUCT Routine 07/20/2005 7:55 AM Viral Warts Nos PREMALIGNANT LESION, CDT FIRST HC X-RAY HEEL >=2 Routine 07/19/2005 heel pain Results fo r this VIEWS procedure are i n the results section. documented in this encounter Results X-RAY HEEL (07/19/2005) Anatomical Region Laterality Modality Other Impressions 07/19/2005 Patient: ??Seamus Barnes Chart: ??[id number] : ??1995 RADIOLOGIST? S INTERPRETATION: ??Vasile Jorgensen M.D. LEFT CALCANEUS ??07/19/05 History: ??Pain. ?? Findings: ??Two views of the left calcan eus are negative. ?? PROVIDER? S INTERPRETATION: ??Matthieu Olsen M.D. Normal/Negative. ?? JL/tracy:adf D&T: ??07/21/05 Electronically filed by Maxine Acosta ??07/21/2005 ??4:24 PM Matthieu Olsen MD GENERAL IMAGING documented in this encounter Visit Diagnoses Diagnosis heel pain - Primary Contusion of foot Achilles bursitis or tendinitis Viral warts, unspecified documented in this encounter Care Teams Building Rental Manager Relationship Specialty Start Date End Date Matthieu Olsen MD PCP - General 12/15/01 documented as of this encounter
--- OUTSIDE RECORDS SUMMARY | 2022-09-26 20:28 | XMS_ITS | Encounter Summary ---
:1995 Author Organization [place] Address [address] [facility] [place] [address] Care Team Providers Name Role Phone Matthieu Olsen MD Primary Care Provider Unavailable Encounter Details Date Type Department Care Team Description 11/17/2002 Medical Correspondence [facility] Larissa Olsen [facility] Clinic MD [address] [place] [address] Social History Tobacco Use Types [...] Office Visit Internal Medicine Marcy Ricketts APRN EVENT SPECIALIST PRODUCT DEMONSTRATOR [address] [place], [place] [address] (Wo rk) documented as of this encounter Visit Diagnoses Not on filedocumented in this encounter Care Teams Cookie Padder Relationship Specialty Start Date End Date Matthieu Olsen MD PCP - General 12/15/01 documented as of this encounter
--- OUTSIDE RECORDS SUMMARY | 2022-09-26 20:28 | XMS_ITS | Encounter Summary ---
:1995 Author Organization [place] Address [address] [place] [address] Care Team Providers Name Role Phone Matthieu Olsen MD Primary Care Provider Unavailable Encounter Details Date Type Department Care Team Description 12/04/2002 Medical Correspondence [facility] Larissa Olsen QUICK MEDX Clinic MD [address] [place] [address] Social History Tobacco Use Types [...] Office Visit Internal Medicine Marcy Ricketts APRN TRACTOR OPERATOR LASER LEVELING [address] [place], [place] [address] (Wo rk) documented as of this encounter Visit Diagnoses Not on filedocumented in this encounter Care Teams Network Support Technician Relationship Specialty Start Date End Date Matthieu Olsen MD PCP - General 12/15/01 documented as of this encounter
--- OUTSIDE RECORDS SUMMARY | 2022-09-26 20:28 | XMS_ITS | Encounter Summary ---
:1995 Author Organization [place] Address [address] [place] [address] Care Team Providers Name Role Phone Matthieu Olsen MD Primary Care Provider Unavailable Reason for Visit Reason Comments Ear Problem Encounter Details Date Type Department Care Team Description 06/11/2003 Office Visit [facility] Pili Rider ACUTE SUPP OTITIS Clinic [place] MD Ewelina MEDIA NOS (Primary [address] Dx) [address] [place] [address] [phone] (Wo rk) Social History Tobacco Use Types [...] Pressure - - Pulse - - Temperature 37.8 ??C (100 ??F) 06/11/2003 3:15 PM CDT Respiratory Rate - - Oxygen Saturation - - Inhaled Oxygen Concentration - - Weight 41.5 kg (91 lb 8 oz) 06/11/2003 3:15 PM CDT Height - - Body Mass Index - - documented in this encounter Progress Notes 06/11/2003 3:15 PM CDT SUBJECTIVE: Seamus is a 8 year old male who presents for follow-up of ear pain that was diagnosed as TRACY 4 days ago in the UC setting. Seamus was placed on Zyrtec. He seems to be gradually worsening. marlene ballesteros is eatingand sleeping normally. Residual symptoms include: ear pain. He does not have allergy sym ptoms.. Seamus has had a history of this problem in the past. Objective: GENERAL: Alert, vigorous, is in no acute distress. SKIN: skin is well purfused, of normal turgor, no rash. Mucous membranes are moist. EYES: The eyes are normal.without conjunctivael injection or lid edema. EARS: The external ear is not tender to motion. The canals are normal and the right tympanic membrane is fluid filled . The left tm is erythematous,dull,and full. NOSE: Clear, no discharge or congestion THROAT: The thr oat is clear. NECK: The neck is supple. LYMPH NODES: No adenopathy LUNGS: The lung burgos are clear t o auscultation,no rales, rhonchi, wheezing or retractions HEART: The precordium is quiet. Rhythm is r egular, no murmur. ABDOMEN: The bowel sounds are normal. Abdomen soft, non tender, non distended, no masses or hepatosplenomegaly.. Assessment: Otitis Media with Effusion PLAN: Antibiotics as writ ten. Tylenol or Motrin at appropriate doses to control pain. RTC in 2-3 weeks for ear recheck, soone r if symptoms worsen or new ones arise. documented in this encounter Nursing Notes 06/11/2003 3:15 PM CDT >> GWENDOLYN LUIS 06/11/2003 3:22 pm Complains of R ear pain. Seen in Urgent Care this weekend and told has fluid in ear. Still complains of pain. Kamini ROJAS,RN documented in this encounter Plan of Treatment Upcoming Encounters Date Type Specialty Care Team Description 11/04/2022 Office Visit Internal Medicine Marcy Ricketts APRN GROUNDS MANAGER [address] [place], [place] [address] (Wo rk) documented as of this encounter Visit Diagnoses Diagnosis Acute suppurative otitis media without s pontaneous rupture of eardrum - Primary documented in this encounter Care Teams Pipe Fitter Helper Relationship Specialty Start Date End Date Matthieu Olsen MD PCP - General 12/15/01 documented as of this encounter
--- OUTSIDE RECORDS SUMMARY | 2022-09-26 20:28 | XMS_ITS | Encounter Summary ---
:1995 Author Organization [place] Address [address] [place] [address] Care Team Providers Name Role Phone Matthieu Olsen MD Primary Care Provider Unavailable Encounter Details Date Type Department Care Team Description 01/12/2004 Medical Correspondence [facility] Larissa Olsen [facility] MD Isabel [address] [address] Social History Tobacco Use Types [...] Office Visit Internal Medicine Marcy Ricketts APRN BUSINESS CHANGE MANAGER [address] [place], [place] [address] (Wo rk) documented as of this encounter Visit Diagnoses Not on filedocumented in this encounter Care Teams Upholsterer Inside Relationship Specialty Start Date End Date Matthieu Olsen MD PCP - General 12/15/01 documented as of this encounter
--- OUTSIDE RECORDS SUMMARY | 2022-09-26 20:28 | XMS_ITS | Encounter Summary ---
:1995 Author Organization [place] Address [address] [place] [address] Care Team Providers Name Role Phone Matthieu Olsen MD Primary Care Provider Unavailable Encounter Details Date Type Department Care Team Description 05/25/2003 Medical Correspondence [facility] [place] L[address] [address] Social History Tobacco Use [...] Office Visit Internal Medicine Marcy Ricketts APRN EMERGENCY PREPAREDNESS MANAGER [address] [place], [place] [address] (Wo rk) documented as of this encounter Visit Diagnoses Not on filedocumented in this encounter Care Teams Pharmacist In Charge Relationship Specialty Start Date End Date Matthieu Olsen MD PCP - General 12/15/01 documented as of this encounter
--- OUTSIDE RECORDS SUMMARY | 2022-09-26 20:28 | XMS_ITS | Encounter Summary ---
:1995 Author Organization [place] Address [address] [facility] [place] [address] Care Team Providers Name Role Phone Matthieu Olsen MD Primary Care Provider Unavailable Encounter Details Date Type Department Care Team Description 04/07/[address] [facility] Isabel Ló[place] [address] Social History Tobacco Use Types [...] Office Visit Internal Medicine Marcy Ricketts APRN RESEARCH NURSE [address] [place], [place] [address] (Wo rk) documented as of this encounter Visit Diagnoses Not on filedocumented in this encounter Care Teams Neighborhood Conservation Officer Relationship Specialty Start Date End Date Matthieu Olsen MD PCP - General 12/15/01 documented as of this encounter
--- OUTSIDE RECORDS SUMMARY | 2022-09-26 20:28 | XMS_ITS | Encounter Summary ---
:1995 Author Organization [place] Address [address] [facility] [address] [place] [place] [address] Care Team Providers Name Role Phone Matthieu Olsen MD Primary Care Provider Unavailable Reason for Visit Reason Comments Well Child Encounter Details Date Type Department Care Team Description 06/04/2005 Office Visit [facility] Matthieu Olsen ROUTINE CHILD HEALTH EXAM (Primary Dx); Clinic Meghan Hobson MD ABNORMAL WEIGHT GAIN [address] [place] [address] Social History Tobacco Use Types [...] Sign Reading Time Taken Comments Blood Pressure 98/58 06/04/2005 3:45 PM CDT Pulse - - Temperature 36.8 ??C (98.3 ??F) 06/04/2005 3:45 PM CDT Respiratory Rate - - Oxygen Saturation - - Inhaled Oxygen Concentration - - Weight 56.2 kg (124 lb) 06/04/2005 3:45 PM CDT Height 143.5 cm (4' 8.5) 06/04/2005 3:45 PM CDT Body Mass Index 27.31 06/04/2005 3:45 PM CDT Body Mass Index Percentile 99.00 % 06/04/2005 3:45 PM CD T Growth Chart: CDC (Boys, 2-20 Years) documented in this encounter Progress Notes Matthieu Olsen - 06/06/2005 2:57 PM CDT Seamus Barnes is an 10 year old male here for a routine health maintenance visit, accompanied byhis mother and brother. 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 NO Booster seat/ seat belt? YES Bike/ sport helmet? YES REQUIRED VITAL SIGNS COMPLETED: BP 98/58 Temp (Src) 98.3 (Oral) Ht 4' 8.5 (1.44m) Wt 124 lbs (56.2kg) 89.11% of growth percentile based on boyrftm-hvx-sva. 99.42% of growth percentile based on ukhalv-oqq-uls. 99.01% of growth percentile based on BMI-for-age. HEALTH HISTORY SINCE LAST VISIT: No surgery, major illness or injury since last physical exam Immunization History: DPT/HIB 1996 1996 1996 DTaP 05/15/2001 Hepatitis B 1996 1996 1996 IPV 05/15/2001 MMR 05/25/1997 05/15/2001 OPV 1996 1996 1996 Trihibit (DTap/Hib) 05/25/1997 ALLERGIES: No Known Allergies. DAILY ACTIVITIES: NUTRITION: good appetite, eats variety of foods and junk food SLEEP: No concerns, sleeps well through night ELIMINATION: Normal bowel movements and Normal urination EXERCISE/ RECREATION: Age appropriate activities and Organized / team sports: TV/ MEDIA: 2 hrs/day EDUCATION: Concerns: no MENTAL HEALTH: Concerns: no VISION: normal HEARING:, normal ROS: CONSTITUTIONAL: See nutrition and daily activities in history HEENT: Negative for hearing problems, vision problems, nasal congestion SKIN: Negative for rash, birthmarks, acne, mole changes RESP: Negative for cough, wheezing, SOB CV: Negative for cyanosis, irregular heartbeats, palpitations GI: See appetite and elimination in history : See elimination in history NEURO: see development, negative for headaches ALLERGY/IMMUNE: See allergy in history PSYCH: See history and development, negative for behavior problems MUSKULOSKELETAL: Negative for swelling, arthalgia, muscle weakness, gait problem EXAM: GENERAL: Alert, well nourished, well developed, no acute distress, interacts appropriately for age SKIN: skin is clear, no rash, acne, abnormal pigmentation or lesions HEAD: The head is normocephalic. EYES:The conjunctivae and cornea normal. PERRL, EOMI, Light reflex is symmetric and no eye movement on cover/uncover test. Sharp optic discs EARS: The external auditory canals are clear and the tympanic membranes are normal; ames and transluscent. NOSE: Clear, no discharge or congestion MOUTH/THROAT: The throat is clear, tonsils:normal, no exudate or lesions. Normal teeth without obvious abnormalities NECK: The neck is supple and thyroid is normal, no masses LYMPH NODES: No adenopathy LUNGS: The lung burgos are clear to auscultation,no rales, rhonchi, wheezing or retractions HEART: The precordium is quiet. Rhythm is regular. S1 and S2 are normal. No murmurs. ABDOMEN: The bowel sounds are normal. Abdomen soft, non tender, non distended, no masses or hepatosplenomegaly. M-GENITALIA: Normal male external genitalia. Quinn stage 1, Testes descended bilateraly, no hernia or hydrocele. Circumcised: Yes M-BREASTS: Normal, no gynecomastia or abnormalities EXTREMITIES: Symmetric extremities, FROM, no deformities. Spine is straight, no scoliosis NEUROLOGIC: No focal findings. Cranial nerves grossly intact: DTR's normal. Normal gait, strength and tone ANTICIPATORY GUIDANCE: The following topics were discussed: SOCIAL/ FAMILY: Praise for positive activities Encourage reading Limit / supervise TV/ media Chores/ expectations NUTRITION: Healthy snacks Family meals Balanced diet HEALTH/ SAFETY: Physical activity Regular dental care Booster seat/ Seat belts Swim/ water safety Bike/sport helmets ASSESSMENT: Well Child with normal growth & development except for overweight PLAN: Immunizations: Reviewed, up to date. See other orders in [facility]. Referrals/Ongoing Specialty care: No Dental visit recommended: Continue care q 6 months RTC: 2 year RHM visit documented in this encounter Nursing Notes 06/04/2005 3:45 PM CDT >> MAKENNA ROSARIO 06/04/2005 3:43 pm Seamus is an 10 year old male here for a routine health maintenance visit, accompanied by his mother and brother. There are concerns about weight.. No changes in family history since last physical. No recent social changes/stressors. [place] Prescreen: Not applicable. Lead Risk Questionaire: Not applicable 4 years and older - Vision, hearing: Makenna Rosario LPN documented in this encounter Plan of Treatment Upcoming Encounters Date Type Specialty Care Team Description 11/04/2022 Office Visit Internal Medicine Marcy Ricketts APRN TELEMARKETING SALES REPRESENTATIVE [address] [place], [place] [address] (Wo rk) documented as of this encounter Procedures Procedure Name Priority Date/Time Associated Comments Diagnosis HCL UA MICRO IF Routine 06/04/2005 4:21 PM Routine Child Resul ts for this POSITIVE CDT Health Exam procedure are i n the results section. HCL HEMOGLOBIN NONLAB Routine 06/04/2005 4:19 PM Routine Child Results for this CDT Health Exam procedure are i n the results section. HCL COMPREHENSIVE Routine 06/04/2005 4:19 PM Abnormal Weight R esults for this METABOLIC PANEL CDT Gain procedure ar e in the results section. HCL TSH Routine 06/04/2005 4:19 PM Abnormal Weight Result s for this CDT Gain procedure are i n the results section. HCL T4 FREE Routine 06/04/2005 4:19 PM Abnormal Weight Result s for this CDT Gain procedure are i n the results section. HCL INSULIN Routine 06/04/2005 4:19 PM Abnormal Weight Result s for this CDT Gain procedure are i n the results section. CL AFF CORTISOL, SERUM Routine 06/04/2005 4:19 PM Abnormal Eleuterio ght Results for this PM CDT Gain procedure are i n the results section. documented in this encounter Results (ABNORMAL) UA MICRO IF POSITIVE (06/04/2005 4:21 PM CDT) Patholo gist Method Time Signature Color Urine Yellow [facility] Appearance Urine Clear [facility] Glucose Urine Negative NEG mg/dL [facility] Bilirubin Urine Negative NEG [facility] Ketones Urine Negative NEG mg/dL [facility] Specific [place] 1.015 1.001 - [place] Urine 1.035 [facility] Blood Urine Negative NEG [facility] pH Urine 7.5 (H) 5.0 - 7.0 [place] pH [facility] Protein Albumin Negative NEG mg/dL [place] Urine [facility] Urobilinogen 0.2 0.2 - 1.0 [place] Urine EU/dL [facility] Nitrite Urine Negative NEG [facility] Leukocyte Negative NEG [place] Esterase Urine [facility] Source Midstream [facility] Specimen Anatomical Collection Method Collection Time Receive d Time (Source) Location / / Volume Laterality 06/04/2005 4:21 PM 5 4:26 CDT PM CDT Matthieu Olsen MD LABORATORY Performing Organization Address City/State/ZIP Code Phon e Number [place] [address], [place] [address] [address] [facility] INSULIN, TOTAL (06/04/2005 4:19 PM CDT) athologist Signature Insulin 18 mU/L [facility] Comment: Reference Range: 0-20 Specimen Anatomical Collection Method Collection Time Receive d Time (Source) Location / / Volume Laterality 06/04/2005 4:19 PM 5 4:24 CDT PM CDT Matthieu Olsen MD LABORATORY Performing Organization Address City/State/ZIP Code Phon e Number [phone] [place] [address] LABS CORTISOL, SERUM PM (06/04/2005 4:19 PM CDT) athologist Signature Cortisol 4.0 1.4 - 14.0 [facility] ug/dL [facility] LABS Specimen Anatomical Collection Method Collection Time Receive d Time (Source) Location / / Volume Laterality 06/04/2005 4:19 PM 08/05/200 5 4:24 CDT PM CDT Matthieu Olsen MD LABORATORY Performing Organization Address City/State/ZIP Code Phon e Number [facility] [address] [place] [address] [facility]S TSH- (06/04/2005 4:19 PM CDT) athologist Signature TSH 2.92 0.4 - 5.0 [place] mU/L CLINIC LAB Specimen Anatomical Collection Method Collection Time Receive d Time (Source) Location / / Volume Laterality 06/04/2005 4:19 PM 5 4:24 CDT PM CDT Matthieu Olsen MD LABORATORY Performing Organization Address City/State/ZIP Code Phon e Number [facility] [address] [place] [id number] [facility] T4, FREE, SERUM (06/04/2005 4:19 PM CDT) athologist Signature T4 Free 1.26 0.70 - 1.85 [facility] ng/dL CLINIC LAB Specimen Anatomical Collection Method Collection Time Receive d Time (Source) Location / / Volume Laterality 06/04/2005 4:19 PM 5 4:24 CDT PM CDT Matthieu Olsen MD LABORATORY Performing Organization Address City/[facility]/ZIP Code Phon e Number [facility] [address], [place] [address] [facility] (ABNORMAL) A.M.A. COMPREHENSIVE MET.PANEL (06/04/2005 4:19 PM CDT) [facility] gist Method Time Signature Sodium 141 133 - 143 [facility] mmol/L [facility] Potassium 3.6 3.4 - 5.3 [facility] mmol/L [facility] Chloride 102 98 - 110 [facility] mmol/L [facility] Carbon Dioxide 28 20 - 32 [facility] mmol/L [facility] Anion Gap 11 6 - 17 [facility] mmol/L [facility] Glucose 91 60 - 110 [facility] mg/dL [facility] Urea Nitrogen 12 5 - 24 [facility] mg/dL [facility] Creatinine 0.60 0.20 - [facility] 0.70 [facility] mg/dL LAB GFR Estimate GFR not mL/min/1. [facility] calculated, 7m2 [facility] patient <16 LAB years old. GFR Estimate If GFR not mL/min/1. [facility] Black calculated, 7m2 [facility] patient <16 LAB years old. Calcium 9.9 8.7 - [facility] 10.8 [facility] mg/dL LAB Bilirubin Total 0.4 0.2 - 1.3 [place] mg/dL [facility] LAB Albumin 4.6 3.3 - 4.6 [place] g/dL [facility] Protein Total 8.0 (H) 5.7 - 7.9 [place] g/dL [facility] Alkaline 319 150 - 420 [place] Phosphatase U/L [facility] ALT 38 0 - 50 [place] U/L [facility] AST 31 0 - 50 [place] U/L [facility] Specimen Anatomical Collection Method Collection Time Receive d Time (Source) Location / / Volume Laterality 06/04/2005 4:19 PM 5 4:24 CDT PM CDT Matthieu Olsen MD LABORATORY Performing Organization Address City/State/ZIP Code Phon e Number [address] [address] [facility] LAB (ABNORMAL) HGB (06/04/2005 4:19 PM CDT) P athologist Signature Hemoglobin 14.8 (H) 10.5 - 14.0 [place] g/dL [facility] Specimen Anatomical Collection Method Collection Time Receive d Time (Source) Location / / Volume Laterality 06/04/2005 4:19 PM 5 4:24 CDT PM CDT Matthieu Olsen MD LABORATORY Performing Organization Address City/[facility]/ZIP Code Phon e Number [facility] [address] [place], [place] [address] [address] [facility] documented in this encounter Visit Diagnoses Diagnosis Routine infant or child health check - P rimary Abnormal weight gain documented in this encounter Care Teams Organ Tuner Relationship Specialty Start Date End Date Matthieu Olsen MD PCP - General 12/15/01 documented as of this encounter
[2022-09-26 20:39] LABS: Chloride* 101 mmol/L (96-114); Sodium* 138 mmol/L (135-149)
[2022-09-26 20:40] LABS: Albumin* 5.1 g/dL (3.3-5.0); Potassium* 4.1 mmol/L (3.6-5.1)
[2022-09-26 20:43] LABS: Alanine Aminotransferase* 74 U/L (4-50); Alkaline Phosphatase* 120 U/L (40-150); Aspartate Amino Transferase* 45 U/L (12-35); Bilirubin Total* 0.8 mg/dL (0.1-1.5); Blood Urea Nitrogen* 13 mg/dL (5-24); Calcium* 9.7 mg/dL (8.4-10.6); Carbon Dioxide* 29 mmol/L (20-32); Creatinine* 1.1 mg/dL (0.5-1.5); Est. Creatinine Clearance* 118.32; Estimated Glomerular Filt Rate 95 ml/min; Glucose* 85 mg/dL (60-115); Lipase* 42 U/L (23-300)
[2022-09-26 20:47] LABS: C Reactive Protein* < 0.5 mg/dL (0.5-1.0)
[2022-09-26] MEDS: SUCRALFATE 1 GM TABLET PO (22:19)
== END 2022-09-26 22:25 | disposition home or self-care (01) ==
PROVIDERS: Emergency Provider Family Medicine
DX: K29.70 Gastritis, unspecified, without bleeding (principal)
CPT/HCPCS: 36415; 76705; 80053; 83690; 85025; 86140; 96374; 99283; 99284; A9270; J2405; J7030